=== PATIENT | female | born 1970 | race Caucasian/White ===

== ENCOUNTER 2016-09-08 15:53 | Emergency (ER) | payer MEDICARE, MEDICAID ==
[~2016-09-08] VITALS: Ht 157.5 cm; Wt 81.6 kg
[~2016-09-08 15:53] MED LIST: CEPH500C PO; INSU100V5 SQ; IRON; LEVO500T69 PO; MTF500T PO; MULT1CAP27 PO; OMG1KC PO; OXYC-12 PO; PRM25T PO
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
[2016-09-08 17:05] LABS: BILIRUBIN,URINE NEGATIVE (NEGATIVE); KETONES,URINE 1+ (NEGATIVE); LEUKOCYTE ESTERASE ,URINE 3+ (NEGATIVE); NITRITE,URINE POSITIVE (NEGATIVE); PH,URINE 6 (5-9); PROTEIN,URINE 2+ (NEGATIVE); UROBILINOGEN,URINE NORMAL (NORMAL)
[2016-09-08 17:14] LABS: WBC,URINE >100 /HPF
[2016-09-08] MEDS ORDERED: LIDOCAINE 1% INJ 20 ML (XYLOCAINE) VIAL INJ ONE (17:30)
[2016-09-08] MEDS ORDERED: cefTRIAXone 1 GM (ROCEPHIN) VIAL IM ONE (17:30)
[2016-09-08 18:30] LABS: BASOPHILS % (AUTO) 0 % (0-10); EOSINOPHILS # (AUTO) 0.4 10^3/uL (0.0-0.3); EOSINOPHILS % (AUTO) 4 % (0-10); LYMPHOCYTES # (AUTO) 2.8 X 10^3 (1.0-4.0); LYMPHOCYTES % (AUTO) 23 % (12-44); MEAN CORPUSCULAR HEMOGLOBIN 26 PG (25-34); MEAN CORPUSCULAR HGB CONC 31 G/DL (32-36); MEAN CORPUSCULAR VOLUME 82 FL (80-99); MEAN PLATELET VOLUME 10.8 FL (7.4-10.4); MONOCYTES # (AUTO) 0.6 X 10^3 (0.0-1.0); MONOCYTES % (AUTO) 5 % (0-12); NEUTROPHILS # (AUTO) 8.6 X 10^3 (1.8-7.8); NEUTROPHILS % (AUTO) 69 % (42-75); PLATELET COUNT 65 10^3/uL (130-400); RED BLOOD COUNT 4.47 10^6/uL (4.35-5.85); RED CELL DISTRIBUTION WIDTH 15.6 % (10.0-14.5); WHITE BLOOD COUNT 12.5 10^3/uL (4.3-11.0)
[2016-09-08 18:52] LABS: ALBUMIN 3.8 G/DL (3.2-4.5); BILIRUBIN,TOTAL 0.2 MG/DL (0.1-1.0); CREATININE SERUM 0.99 MG/DL (0.60-1.30); POTASSIUM 4.4 MMOL/L (3.6-5.0); TOTAL PROTEIN 7.9 G/DL (6.4-8.2)
[2016-09-08] MEDS ORDERED: NITR-65 PO (19:06)
--- NOTE | 2016-09-08 19:07 | ED GU-Female ---
General Chief Complaint: -Female Stated Complaint: UTI SYMPTOMS History of Present Illness Time seen by provider: 16:30 Initial Comments Patient presents for recurrent/chronic UTIs. She is paraplegic, She self caths via a abdominal wall stoma into the bladder pouch. She reports diarrhea 1-2 episodes a day, none since yesterday. She is on Levemir 40 units twice a day, blood sugars have been running 180s to 260s. Fasting this morning was 240. Timing/Duration: intermittent Severity/Quality: mild Location: unknown Radiation: none Activities at Onset: none Prior Genitourinary Problems: similar symptoms Associated Symptoms: denies symptoms Allergies and Home Medications Allergies Coded Allergies: latex (Unverified Allergy, Severe, 04/02/14) ANAPHYLAXIS ciprofloxacin (Unverified Allergy, Mild, 04/02/14) RASH hydrocodone (Unverified Allergy, Mild, 04/02/14) RASH paroxetine (Unverified Allergy, Mild, 04/02/14) RASH phenobarbital (Unverified Allergy, Mild, 04/02/14) RASH sulfamethoxazole (Unverified Allergy, Mild, 04/02/14) RASH trimethoprim (Unverified Allergy, Mild, 04/02/14) RASH Home Medications DAILY (Reported) Cephalexin Monohydrate 500 Mg Capsule #28 1 EACH PO QID Prescribed by: KENDALL ROCK on 09/23/14 0035 Insulin Detemir 100 U/Ml Vial 26 U SQ BID (Reported) Levofloxacin 500 Mg Tab #7 1 EACH PO DAILY Prescribed by: DAYTON EISENBERG on 07/29/14 1835 Metformin Hcl 500 Mg Tablet 1 EACH PO BID WITH MEALS (Reported) Multivitamins 1 Each Capsule 1 EACH PO DAILY (Reported) Nitrofurantoin Monohyd/M-Cryst 100 Mg Capsule #14 1 TAB PO BID Prescribed by: LEE BOUCHER on 09/08/16 1906 [place] 3 Polyunsat Fatty Acids 1,000 Mg Cap Unknown Dose PO DAILY (Reported) Oxycodone Hcl/Acetaminophen 1 Each Tablet #10 1 EACH PO Q6H PRN PRN PAIN Prescribed by: KIRBY FERNANDO on 11/09/14 170 Promethazine Hcl 25 Mg Tab #14 25 MG PO Q6H PRN PRN NAUSEA/VOMITING Prescribed by: KIRBY FERNANDO on 11/09/14 1706 Constitutional: no symptoms reported see HPI EENTM: no symptoms reported see HPI Respiratory: no symptoms reported see HPI Cardiovascular: no symptoms reported see HPI Gastrointestinal: no symptoms reported see HPI Genitourinary: see HPI Musculoskeletal: no symptoms reported see HPI Skin: no symptoms reported see HPI Psychiatric/Neurological: No Symptoms Reported See HPI Endocrine: No Symptoms Reported See HPI Hematologic/Lymphatic: No Symptoms Reported See HPI All Other Systemes Reviewed Negative Unless Noted: Yes Past Mminzmo-Rbkula-Rejvug Hx Patient Social History Recent Foreign Travel: No Contact w/Someone Who Travel: No Immunizations Up To Date Tetanus Booster (TDap): Unknown Surgeries HX Surgeries: Yes ( CESEAEAN, BLADDER, THORACIC SPINAL SURGERY, R WRIST, KIDNEY REMOVAL) Surgeries: Section, Orthopedic Respiratory Hx Respiratory Disorders: No Cardiovascular Hx Cardiac Disorders: No Neurological Hx Neurological Disorders: No Genitourinary Hx Genitourinary Disorders: No Genitourinary Disorders: Kidney Stones Gastrointestinal Hx Gastrointestinal Disorders: No Gastrointestinal Disorders: Chronic Diarrhea Musculoskeletal Hx Musculoskeletal Disorders: Yes Musculoskeletal Disorders: Back Injury Endocrine Hx Endocrine Disorders: Yes (TYPE 2 DIABETES) Endocrine Disorders: Diabetes, Insulin dep HEENT HX ENT Disorders: No Cancer Hx Cancer: No Cancer: Uterine Psychosocial Hx Psychiatric Problems: No Reviewed Nursing Assessment Reviewed/Agree w Nursing PMH: Yes Physical Exam Vital Signs Vital Sign - Last 12Hours 09/08/16 16:30 Temp 99.1 Pulse 70 Resp 16 B/P 132/70 Pulse Ox 96 Capillary Refill : General Appearance: WD/WN no apparent distress HEENT: PERRL/EOMI normal ENT inspection TMs normal pharynx normal Neck: non-tender full range of motion supple normal inspection Cardiovascular: normal peripheral pulses regular rate, rhythm no murmur Respiratory: chest non-tender lungs clear no accessory muscle use Gastrointestinal: normal bowel sounds non tender soft other ([place] Catheter) Back: no CVA tenderness Neurologic/Psychiatric: alert normal mood/affect oriented x 3 Skin: normal color warm/dryNo rash Lymphatic: no adenopathy Progress/Results/Core Measures Results/Orders Lab Results My Orders Medications Given in ED Vital Signs/I&O Progress Note : Progress Note 1900 patient had po intake of 10 ounces of water. WBC 12.5; Na 134; Glucose 309 ; UA pH 6.0; 2+ Protein; 4+ Glucose; 1+ Ketones; + Nitrites; 2+ hematuria; > 100 WBC. We were unable to obtain IV access, patient refused additional tries after 2 attempts. She agreed to keep increasing her by mouth fluid intake. 1925 Accucheck 292, offered to give regular insulin subcutaneous. Patient declined, she will continue to push water. She will monitor her blood sugar at home and follow her established protocols on self-management. Departure Impression Impression: Primary Impression: Urinary tract infection Qualified Code: T83.511A - Infection and inflammatory reaction due to indwelling urethral catheter, initial encounter Disposition: HOME, SELF-CARE Condition: Stable Departure-Patient Inst. Decision time for Depature: 18:30 Referrals: EDWARDO MCCRAY MD (PCP/Family) Primary Care Physician Patient Instructions: Urinary Tract Infection, Adult (DC) Add. Discharge Instructions: All discharge instructions reviewed with patient and/or family. Voiced understanding. Scripts Nitrofurantoin Monohyd/M-Cryst (Macrobid 100 mg Capsule)100 Mg Capsule1 Tab PO BID #14 CAP Ref 0 Prov:LEE BOUCHER 09/08/16 Copy Copies To 1: EDWARDO MCCRAY MD, AMY ARNP Sep 08, 2016 19:07 Alanine Aminotransferase (ALT/SGPT) 24 0-55 U/L Albumin 3.8 3.2-4.5 G/DL Alkaline Phosphatase 74 40-136 U/L Anion Gap 16 H 5-14 MMOL/L Aspartate Amino Transf (AST/SGOT) 32 5-34 U/L BUN/Creatinine Ratio 10 Basophils # (Auto) 0.0 0.0-0.1 10^3/uL Basophils (%) (Auto) 0 0-10 % Blood Urea Nitrogen 10 7-18 MG/DL Calcium Level 9.0 8.5-10.1 MG/DL Carbon Dioxide Level 16 L 21-32 MMOL/L Chloride Level 102 98-107 MMOL/L Creatinine 0.99 0.60-1.30 MG/DL Eosinophils # (Auto) 0.4 H 0.0-0.3 10^3/uL Eosinophils (%) (Auto) 4 0-10 % Estimat Glomerular Filtration Rate 60 Glucose Level 309 H 70-105 MG/DL Hematocrit 37 35-52 % Hemoglobin 11.5 11.5-16.0 G/DL Lymphocytes # (Auto) 2.8 1.0-4.0 X 10^3 Lymphocytes (%) (Auto) 23 12-44 % Mean Corpuscular Hemoglobin 26 25-34 PG Mean Corpuscular Hemoglobin Concent 31 L 32-36 G/DL Mean Corpuscular Volume 82 80-99 FL Mean Platelet Volume 10.8 H 7.4-10.4 FL Monocytes # (Auto) 0.6 0.0-1.0 X 10^3 Monocytes (%) (Auto) 5 0-12 % Neutrophils # (Auto) 8.6 H 1.8-7.8 X 10^3 Neutrophils (%) (Auto) 69 42-75 % Platelet Count 65 L 130-400 10^3/uL Potassium Level 4.4 3.6-5.0 MMOL/L Red Blood Count 4.47 4.35-5.85 10^6/uL Red Cell Distribution Width 15.6 H 10.0-14.5 % Sodium Level 134 L 135-145 MMOL/L Total Bilirubin 0.2 0.1-1.0 MG/DL Total Protein 7.9 6.4-8.2 G/DL White Blood Count 12.5 H 4.3-11.0 10^3/uL Glucometer 292 H 70-110 MG/DL My Orders Orders-LEE BOUCHER Cbc With Automated Diff (09/08/16 16:46) Comprehensive Metabolic Panel (09/08/16 16:46) Ceftriaxone Injection (Rocephin Injectio (09/08/16 17:30) Lidocaine 1% Injection (Xylocaine 1% Inj (09/08/16 17:30) Accucheck Stat ONCE (09/08/16 19:11) Medications Given in ED Current Medications Medications Dose Ordered Sig/Gilbert Route Start Time Stop Time Status Last Admin Dose Admin Ceftriaxone Sodium 1,000 mg ONCE ONCE IM 09/08/16 17:30 09/08/16 17:31 DC 09/08/16 19:00 1,000 MG Lidocaine HCl 2.1 ml ONCE ONCE INJ 09/08/16 17:30 09/08/16 17:31 DC 09/08/16 19:00 2.1 ML Vital Signs/I&O Vital Sign - Last 12Hours 09/08/16 09/08/16 09/08/16 16:30 19:00 19:00 Temp 99.1 99.4 99.4 Pulse 70 Resp 16 B/P 132/70 Pulse Ox 96 Progress Note : Progress Note 1900 patient had po intake of 10 ounces of water. WBC 12.5; Na 134; Glucose 309 ; UA pH 6.0; 2+ Protein; 4+ Glucose; 1+ Ketones; + Nitrites; 2+ hematuria; > 100 WBC. We were unable to obtain IV access, patient refused additional tries after 2 attempts. She agreed to keep increasing her by mouth fluid intake. 1924 Accucheck 292, offered to give regular insulin subcutaneous. Patient declined, she will continue to push water. She will monitor her blood sugar at home and follow her established protocols on self-management. Departure Impression Impression: Primary Impression: Urinary tract infection Qualified Code: T83.511A - Infection and inflammatory reaction due to indwelling urethral catheter, initial encounter Disposition: HOME, SELF-CARE Condition: Stable Departure-Patient Inst. Decision time for Depature: 18:30 Referrals: EDWARDO MCCRAY MD (PCP/Family) Primary Care Physician Patient Instructions: Urinary Tract Infection, Adult (DC) Add. Discharge Instructions: All discharge instructions reviewed with patient and/or family. Voiced understanding. Scripts Nitrofurantoin Monohyd/M-Cryst (Macrobid 100 mg Capsule)100 Mg Capsule1 Tab PO BID #14 CAP Ref 0 Prov:LEE BOUCHER 09/08/16 Copy Copies To 1: EDWARDO MCCRAY MD, AMY ARNP Sep 08, 2016 19:07
[2016-09-08 19:20] VITALS: BP 132/70
== END 2016-09-08 19:20 | disposition home or self-care (01) ==
LOC: EDUNIT# 15:53 → ER 15:55
DX: N39.0 Urinary tract infection, site not specified (principal); E11.9 Type 2 diabetes mellitus without complications; G82.20 Paraplegia, unspecified; Z79.84 Long term (current) use of oral hypoglycemic drugs; Z79.899 Other long term (current) drug therapy; Z93.50 Unspecified cystostomy status
CPT/HCPCS: 36415; 80053; 81000; 82962; 85025; 87077; 87088; 87186; 96372; 99285

== ENCOUNTER 2016-09-18 17:44 | Inpatient (IN) | payer MEDICAID, MEDICARE ==
[~2016-09-18] VITALS: Ht 160 cm; Wt 74.0 kg
[~2016-09-18 17:44] MED LIST changes: +NITR-65 PO
[2016-09-18] MEDS ORDERED: ACETAMINOPHEN 325 MG TABLET/CAPLET (TYLENOL) PO PRN (19:00)
--- OUTSIDE RECORDS SUMMARY | 2016-09-18 19:00 | XMS REPORT | Continuity of Care Document ---
Author Author [facility] Organization [facility] Address Unknown Phone Unavailable Care Team Providers Care Motorcycle Repair Shop Supervisor Name Role Phone Dustin An PCP [phone] Source Comments Some departments are not documenting in the electronic medical record. If you do not see the information that you expected, contact Release of Information in the Health Information Management department at [phone] for further assistance in locating additional records.[facility] Active Allergies and Adverse Reactions [...] Overview: Patient with recurrent nephrolithiasis associated with [place] pouch. L PCNL 11/22/15 Second look PCNL [...] mellitus (HCC) History of urinary diversion procedure ([place] Pouch) Overview: Karis pouch -- 1999; Dr. [...]
[2016-09-18 19:15] VITALS: BP 141/70
[2016-09-18 20:00] VITALS: BP 141/70
[2016-09-18] MEDS ORDERED: CATHETER FLUSH 10 ML SYR IV PRN (20:00)
[2016-09-18] MEDS: CEFEPIME 2 GM/NS 50 ML IVPB IV SCH ×2 (20:51)
[2016-09-18] MEDS ORDERED: BISACODYL 10 MG SUPP (DULCOLAX) ONE (21:43)
[2016-09-18] MEDS: CATHETER FLUSH 10 ML SYR IV SCH (22:00)
[2016-09-18] MEDS: NS IV 1000 ML 1,000 ML IV SCH (22:01)
[2016-09-18] MEDS: BISACODYL 10 MG SUPP (DULCOLAX) PR SCH (22:02)
[2016-09-19 00:40] VITALS: BP 121/80
[2016-09-19 04:00] VITALS: BP 111/72
[2016-09-19] MEDS: CATHETER FLUSH 10 ML SYR IV SCH ×3 (06:00→20:52)
[2016-09-19 06:37] LABS: ANION GAP 15 MMOL/L (5-14); BLOOD UREA NITROGEN 13 MG/DL (7-18); BUN/CREATININE RATIO 14; CALCIUM 8.4 MG/DL (8.5-10.1); CARBON DIOXIDE 12 MMOL/L (21-32); CHLORIDE 110 MMOL/L (98-107); CREATININE SERUM 0.94 MG/DL (0.60-1.30); GFR ESTIMATED > 60; GLUCOSE 295 MG/DL (70-105); POTASSIUM 3.7 MMOL/L (3.6-5.0); SODIUM 137 MMOL/L (135-145)
[2016-09-19 08:00] VITALS: BP 128/81
[2016-09-19] MEDS ORDERED: METF500T4 PO (08:40)
[2016-09-19] MEDS ORDERED: ACET-2267 PO (08:41)
[2016-09-19] MEDS: NS IV 1000 ML 1,000 ML IV SCH ×3 (09:05→20:50)
[2016-09-19] MEDS: CEFEPIME 2 GM/NS 50 ML IVPB IV SCH ×4 (09:06→20:51)
[2016-09-19] MEDS ORDERED: ACETAMINOPHEN 500 MG TAB (TYLENOL) PO PRN (09:30)
[2016-09-19] MEDS: inSUlin DETERMIR 1 UNIT/0.01 ML (LEVEMIR) CHARGE PER UNIT SQ SCH ×2 (10:06→20:52)
[2016-09-19] MEDS: metFORMIN 500 MG (GLUCOPHAGE) TAB PO SCH ×2 (10:06→17:35)
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
[2016-09-19 12:00] VITALS: BP 141/82
[2016-09-19] MEDS: MULTIVIT W/MINERALS TAB (THERAGRAN M) PO SCH (12:46)
[2016-09-19] MEDS: NYSTATIN CREAM (MYCOSTATIN) 30 GM TUBE TP SCH ×3 (12:46→20:52)
[2016-09-19 16:00] VITALS: BP 138/84
[2016-09-19 20:00] VITALS: BP 130/67
[2016-09-19] MEDS: BISACODYL 10 MG SUPP (DULCOLAX) PR SCH (20:52)
[2016-09-19] MEDS: OMEGA 3 (FISH OIL) 1000 MG CAP PO SCH (20:52)
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
[2016-09-20] VITALS: BP 147/70
[2016-09-20] MEDS: CATHETER FLUSH 10 ML SYR IV SCH ×3 (06:00→20:28)
[2016-09-20] MEDS: NS IV 1000 ML 1,000 ML IV SCH ×2 (06:16→18:35)
[2016-09-20] MEDS: MULTIVIT W/MINERALS TAB (THERAGRAN M) PO SCH (06:16)
[2016-09-20] MEDS: metFORMIN 500 MG (GLUCOPHAGE) TAB PO SCH ×2 (06:16→16:34)
[2016-09-20 08:00] VITALS: BP 126/80
[2016-09-20] MEDS: CEFEPIME 2 GM/NS 50 ML IVPB IV SCH ×4 (08:55→20:26)
[2016-09-20] MEDS: inSUlin DETERMIR 1 UNIT/0.01 ML (LEVEMIR) CHARGE PER UNIT SQ SCH ×2 (08:56→20:27)
[2016-09-20] MEDS: NYSTATIN CREAM (MYCOSTATIN) 30 GM TUBE TP SCH ×3 (08:59→20:28)
[2016-09-20] MEDS: MICONAZOLE 2% POWDER (DESENEX AF) 90 GM TOP SCH ×2 (11:05→20:27)
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
[2016-09-20] MEDS ORDERED: VANCOMYCIN ORAL 250 MG/5 ML 60 ML PO SCH ×2 (12:00)
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
[2016-09-20 16:55] VITALS: BP 147/71
[2016-09-20] MEDS: OMEGA 3 (FISH OIL) 1000 MG CAP PO SCH (20:26)
[2016-09-20] MEDS: BISACODYL 10 MG SUPP (DULCOLAX) PR SCH (20:26)
[2016-09-21] VITALS: BP 142/70
[2016-09-21] MEDS: NS IV 1000 ML 1,000 ML IV SCH (04:40)
[2016-09-21 05:08] LABS: BASOPHILS # (AUTO) 0.1 10^3/uL (0.0-0.1); BASOPHILS % (AUTO) 1 % (0-10); EOSINOPHILS # (AUTO) 0.2 10^3/uL (0.0-0.3); EOSINOPHILS % (AUTO) 2 % (0-10); LYMPHOCYTES # (AUTO) 2.7 X 10^3 (1.0-4.0); LYMPHOCYTES % (AUTO) 29 % (12-44); MEAN CORPUSCULAR HEMOGLOBIN 26 PG (25-34); MEAN CORPUSCULAR HGB CONC 31 G/DL (32-36); MEAN CORPUSCULAR VOLUME 82 FL (80-99); MONOCYTES # (AUTO) 0.6 X 10^3 (0.0-1.0); MONOCYTES % (AUTO) 6 % (0-12); NEUTROPHILS # (AUTO) 5.7 X 10^3 (1.8-7.8); NEUTROPHILS % (AUTO) 62 % (42-75); PLATELET COUNT 308 10^3/uL (130-400); RED BLOOD COUNT 3.61 10^6/uL (4.35-5.85); RED CELL DISTRIBUTION WIDTH 16.4 % (10.0-14.5); WHITE BLOOD COUNT 9.3 10^3/uL (4.3-11.0)
[2016-09-21 05:27] LABS: ALANINE AMINOTRANSFERASE 27 U/L (0-55); ALBUMIN 2.8 G/DL (3.2-4.5); ANION GAP 10 MMOL/L (5-14); ASPARTATE AMINO TRANSFERASE 42 U/L (5-34); BILIRUBIN,TOTAL 0.1 MG/DL (0.1-1.0); BLOOD UREA NITROGEN 14 MG/DL (7-18); BUN/CREATININE RATIO 17; CARBON DIOXIDE 14 MMOL/L (21-32); CHLORIDE 114 MMOL/L (98-107); CREATININE SERUM 0.82 MG/DL (0.60-1.30); GFR ESTIMATED > 60; GLUCOSE 235 MG/DL (70-105); POTASSIUM 3.7 MMOL/L (3.6-5.0); SODIUM 138 MMOL/L (135-145); TOTAL PROTEIN 6.3 G/DL (6.4-8.2)
[2016-09-21] MEDS: CATHETER FLUSH 10 ML SYR IV SCH (06:00)
[2016-09-21] MEDS: MULTIVIT W/MINERALS TAB (THERAGRAN M) PO SCH (06:20)
[2016-09-21] MEDS: metFORMIN 500 MG (GLUCOPHAGE) TAB PO SCH (06:20)
[2016-09-21 08:00] VITALS: BP 158/74
[2016-09-21] MEDS: inSUlin DETERMIR 1 UNIT/0.01 ML (LEVEMIR) CHARGE PER UNIT SQ SCH (08:35)
[2016-09-21] MEDS: CEFEPIME 2 GM/NS 50 ML IVPB IV SCH ×2 (08:35)
[2016-09-21] MEDS: MICONAZOLE 2% POWDER (DESENEX AF) 90 GM TOP SCH (08:36)
[2016-09-21] MEDS: NYSTATIN CREAM (MYCOSTATIN) 30 GM TUBE TP SCH (08:36)
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
== END 2016-09-21 11:20 | disposition swing bed (61) | DRG 699 ==
LOC: 4TH 18:57
PROVIDERS: ADMIT Internal Medicine; ATTEND Internal Medicine
DX: N99.531 Infection of continent stoma of urinary tract (principal); N39.0 Urinary tract infection, site not specified; R19.7 Diarrhea, unspecified; G82.20 Paraplegia, unspecified; L89.152 Pressure ulcer of sacral region, stage 2; L30.4 Erythema intertrigo; K59.9 Functional intestinal disorder, unspecified; E11.9 Type 2 diabetes mellitus without complications; E66.9 Obesity, unspecified; Z79.4 Long term (current) use of insulin; Z85.42 Personal history of malignant neoplasm of other parts of uterus; Z90.5 Acquired absence of kidney; Z87.828 Personal history of other (healed) physical injury and trauma; Z68.28 Body mass index [BMI] 28.0-28.9, adult
CPT/HCPCS: 36415; 80048; 80053; 82962; 85025; 87324; 87449

== ENCOUNTER 2016-09-21 11:23 | Inpatient (IN) | payer MEDICARE ==
[~2016-09-21] VITALS: Ht 160 cm; Wt 74.0 kg
[~2016-09-21 11:23] MED LIST changes: +ACET-2267 PO; +METF500T4 PO
[2016-09-21] MEDS ORDERED: NS IV 1000 ML 1,000 ML IV SCH (11:30)
--- OUTSIDE RECORDS SUMMARY | 2016-09-21 11:43 | XMS REPORT | Continuity of Care Document ---
Author Author [facility] Organization [facility] Address Unknown Phone Unavailable Care Team Providers Care Hotel Supplies Salesperson Name Role Phone Dustin An PCP [phone] Source Comments Some departments are not documenting in the electronic medical record. If you do not see the information that you expected, contact Release of Information in the Health Information Management department at [phone] for further assistance in locating additional records.[facility] Active Allergies and Adverse Reactions Allergen Noted [...] Overview: Patient with recurrent nephrolithiasis associated with [place] pouch. L PCNL 11/22/15 Second look PCNL [...] mellitus (HCC) History of urinary diversion procedure ([place] Pouch) Overview: Karis pouch -- 1999; Dr. [...]
[2016-09-21] MEDS: NYSTATIN CREAM (MYCOSTATIN) 30 GM TUBE TP SCH ×2 (12:33→20:40)
[2016-09-21] MEDS: CATHETER FLUSH 10 ML SYR IV SCH ×2 (15:18→20:41)
[2016-09-21] MEDS: metFORMIN 500 MG (GLUCOPHAGE) TAB PO SCH (17:15)
[2016-09-21 18:55] VITALS: BP 143/72
[2016-09-21] MEDS: OMEGA 3 (FISH OIL) 1000 MG CAP PO SCH (20:39)
[2016-09-21] MEDS: MICONAZOLE 2% POWDER (DESENEX AF) 90 GM TOP SCH (20:40)
[2016-09-21] MEDS: BISACODYL 10 MG SUPP (DULCOLAX) PR SCH (20:40)
[2016-09-21] MEDS: CEFEPIME INJECTION 2,000 MG in NS (IVPB) 50 ML IV SCH (20:40)
[2016-09-21] MEDS ORDERED: CEFEPIME INJECTION 2,000 MG in NS (IVPB) 50 ML IV SCH (21:00)
[2016-09-21] MEDS: inSUlin DETERMIR 1 UNIT/0.01 ML (LEVEMIR) CHARGE PER UNIT SQ SCH (22:06)
[2016-09-22 06:00] VITALS: BP 147/67
[2016-09-22] MEDS: CATHETER FLUSH 10 ML SYR IV SCH ×3 (06:17→20:15)
[2016-09-22] MEDS: metFORMIN 500 MG (GLUCOPHAGE) TAB PO SCH ×2 (06:17→16:27)
[2016-09-22] MEDS: MULTIVIT W/MINERALS TAB (THERAGRAN M) PO SCH (06:17)
[2016-09-22] MEDS: NYSTATIN CREAM (MYCOSTATIN) 30 GM TUBE TP SCH ×3 (08:32→20:15)
[2016-09-22] MEDS: MICONAZOLE 2% POWDER (DESENEX AF) 90 GM TOP SCH ×2 (08:32→20:15)
[2016-09-22] MEDS: inSUlin DETERMIR 1 UNIT/0.01 ML (LEVEMIR) CHARGE PER UNIT SQ SCH ×2 (09:41→21:48)
[2016-09-22] MEDS: CEFEPIME INJECTION 2,000 MG in NS (IVPB) 50 ML IV SCH ×3 (09:41→20:15)
[2016-09-22] MEDS ORDERED: LIDOCAINE 1% INJ 20 ML (XYLOCAINE) VIAL ONE (10:28)
[2016-09-22] MEDS: LIDOCAINE 1% INJ 20 ML (XYLOCAINE) VIAL INJ ONE ×2 (10:44→11:53)
[2016-09-22] MEDS ORDERED: morphine INJ 10 MG/ML 1ML (SYR OR VIAL) IM NR (11:19)
[2016-09-22] MEDS ORDERED: morphine INJ 10 MG/ML 1ML (SYR OR VIAL) ONE (11:21)
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
--- NOTE | 2016-09-22 12:51 | Progress Note-Hospitalist ---
Progress Note HPI/CC on Admission Infected Pressure Ulcer Progress Notes/Assess & Plan Date Seen 09/22/16 Admission Dx/Process non healing wounds with MDRO- needs IV abx Diagonsis/Assessment & Plan Pressure ulcer- coccyx - colonization with MDRO - Needs IV abx at this time - Anesthesia unable to obtain IV access so surgery consulted for central line - PT/OT MD ASIM Crook KATELYN M MD Sep 22, 2016 12:51
--- NOTE | 2016-09-22 14:10 | Diagnostic Imaging Report ---
INDICATION: Central line placement EXAMINATION: Chest 09/22/2016 COMPARISON: 09/22/2014 FINDINGS: There is a left-sided central line. The tip is seen within the distal SVC. Postoperative change in the support on in the cervical thoracic spine stable. Lungs are stable. No infiltrates or effusions are seen. There is no pneumothorax. Heart and pulmonary vasculature appear unremarkable. IMPRESSION: 1. Left central line as described with remaining chest stable. Dictated by: Dictated on workstation # [id number]
[2016-09-22] MEDS: ACETAMINOPHEN 500 MG TAB (TYLENOL) PO PRN (16:28)
[2016-09-22 18:00] VITALS: BP 118/56
[2016-09-22] MEDS: OMEGA 3 (FISH OIL) 1000 MG CAP PO SCH (20:14)
[2016-09-22] MEDS: BISACODYL 10 MG SUPP (DULCOLAX) PR SCH (20:31)
[2016-09-23] MEDS: ACETAMINOPHEN 500 MG TAB (TYLENOL) PO PRN ×2 (02:17→10:16)
[2016-09-23 06:00] VITALS: BP 111/59
[2016-09-23] MEDS: MULTIVIT W/MINERALS TAB (THERAGRAN M) PO SCH (06:20)
[2016-09-23] MEDS: CATHETER FLUSH 10 ML SYR IV SCH ×3 (06:20→20:48)
[2016-09-23] MEDS: metFORMIN 500 MG (GLUCOPHAGE) TAB PO SCH ×2 (06:20→17:53)
[2016-09-23] MEDS: MICONAZOLE 2% POWDER (DESENEX AF) 90 GM TOP SCH ×2 (09:25→20:48)
[2016-09-23] MEDS: NYSTATIN CREAM (MYCOSTATIN) 30 GM TUBE TP SCH ×3 (09:25→20:47)
[2016-09-23] MEDS: CEFEPIME INJECTION 2,000 MG in NS (IVPB) 50 ML IV SCH (09:26)
[2016-09-23] MEDS: inSUlin DETERMIR 1 UNIT/0.01 ML (LEVEMIR) CHARGE PER UNIT SQ SCH ×2 (09:26→20:46)
--- NOTE | 2016-09-23 11:48 | Progress Note-Hospitalist ---
Progress Note HPI/CC on Admission Infected Pressure Ulcer, MDRO UTI, doing well. No complaints today. No pain at ulcer. Just has some pain around central line site. Progress Notes/Assess & Plan Date Seen 09/23/16 Admission Dx/Process MDRO UTI- needs IV abx Diagonsis/Assessment & Plan UTI with MDRO - Continue IV abx - Add probiotic Pressure ulcer- coccyx - PT/OT Dispo: Continue admission for IV abx. MD ASIM Crook KATELYN M MD Sep 23, 2016 11:48
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
[2016-09-23] MEDS: LACTOBACILLUS Acidoph/Bulgar (LACTINEX/FLORANEX) TAB PO SCH (17:53)
[2016-09-23 18:00] VITALS: BP 127/89
[2016-09-23] MEDS: OMEGA 3 (FISH OIL) 1000 MG CAP PO SCH (20:47)
[2016-09-23] MEDS: BISACODYL 10 MG SUPP (DULCOLAX) PR SCH (20:47)
[2016-09-24] MEDS: LACTOBACILLUS Acidoph/Bulgar (LACTINEX/FLORANEX) TAB PO SCH ×2 (06:40→11:50)
[2016-09-24] MEDS: metFORMIN 500 MG (GLUCOPHAGE) TAB PO SCH (06:40)
[2016-09-24] MEDS: MULTIVIT W/MINERALS TAB (THERAGRAN M) PO SCH (06:40)
[2016-09-24] MEDS: CATHETER FLUSH 10 ML SYR IV SCH ×2 (06:43→14:31)
[2016-09-24] MEDS: NYSTATIN CREAM (MYCOSTATIN) 30 GM TUBE TP SCH ×2 (09:14→14:30)
[2016-09-24] MEDS: MICONAZOLE 2% POWDER (DESENEX AF) 90 GM TOP SCH (09:14)
[2016-09-24] MEDS: inSUlin DETERMIR 1 UNIT/0.01 ML (LEVEMIR) CHARGE PER UNIT SQ SCH (09:20)
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
[2016-09-24 15:15] VITALS: BP 127/89
--- NOTE | 2016-09-30 20:48 | Discharge Summary ---
Diagnosis/Chief Complaint Date of Admission Sep 21, 2016 at 11:23 Date of Discharge Sep 24, 2016 at 15:15 Admission Diagnosis Admission Diagnosis MDRO UTI Chronic Pressure Ulcer Coccyx Left heal pressure ulcer Debility Discharge Diagnosis See Above Chief Complaint/HPI Chief Complaint/HPI 46 yo Paraplegic with h/o recurrent UTIs that was admitted to swing bed for continue IV antibiotics, wound care and PT/OT. Discharge Summary-Simple/Stand Consultations Wound Care: Dr Duckworth Surgery: Dr Tolbert Discharge Physical Examination Allergies: Coded Allergies: latex (Unverified Allergy, Severe, 04/02/14) ANAPHYLAXIS ciprofloxacin (Unverified Allergy, Mild, 04/02/14) RASH hydrocodone (Unverified Allergy, Mild, 04/02/14) RASH paroxetine (Unverified Allergy, Mild, 04/02/14) RASH phenobarbital (Unverified Allergy, Mild, 04/02/14) RASH sulfamethoxazole (Unverified Allergy, Mild, 04/02/14) RASH trimethoprim (Unverified Allergy, Mild, 04/02/14) RASH Vitals & I&Os Vital Sign - Last 12Hours Date Time Temp Pulse Resp B/P Pulse Ox O2 Delivery O2 Flow Rate FiO2 09/24/16 15:15 107 20 127/89 97 09/24/16 09:00 Room Air General Appearance: Alert, Oriented X3, Cooperative, No Acute Distress HEENT: Atraumatic, PERRLA, EOMI, Mucous Memb Moist/[place] Respiratory: Clear to Auscultation, Normal Air Movement Cardiovascular: Regular Rate, Normal S1, Normal S2, No Murmurs Abdominal: Normal Bowel Sounds, Soft, No Tenderness, No Masses Extremities: No Tenderness/Swelling, Other (trace edema present bilaterally) Skin: Other (stage 2 pressure ulcer present on left heal, stage 4 ulcer present on coccyx (chronic)) Neuro: Normal Speech, Cranial Nerves 3-12 NL Psych/Mental Status: Mental Status NL, Mood NL Hospital Course See final discharge diagnosis. Pending Labs None Discussion & Recommendations 46 yo paraplegic that was admitted to swing bed for continue IV antibiotics, wound care and PT/OT. Patient completed her course of antibiotics and was discharged home with Home health for wound care and therapy Discharge Condition at discharge Stable Instructions to patient/family Please see electonic discharge instructions given to patient. Discharge Medications Reviewed and agree with Discharge Medication list on patient's Discharge Instruction sheet Copy Copies To 1: EDWARDO MCCRAY MD, HOLLY R MD Sep 30, 2016 20:48
--- NOTE | 2016-10-16 11:31 | Anesthesia-Procedure Note ---
Procedure Start/Stop Time Date of Procedure: Sep 22, 2016 Start Time: 10:30 Stop Time: 10:38 Procedures/Interventions IV : Progress Unsuccessful IV attempts x 4 KAVIN VILLA CRNA Oct 16, 2016 11:31
== END 2016-09-24 15:15 | disposition home health service (06) | DRG 699 ==
LOC: 4TH 11:23
PROVIDERS: ADMIT Internal Medicine; ATTEND Internal Medicine
PROC: 02HV33Z Insertion of Infusion Device into Superior Vena Cava, Percutaneous Approach (ICD-10-PCS; principal; 2016-09-22)
DX: N99.531 Infection of continent stoma of urinary tract (principal); N39.0 Urinary tract infection, site not specified; G82.20 Paraplegia, unspecified; L89.152 Pressure ulcer of sacral region, stage 2; E11.9 Type 2 diabetes mellitus without complications; Z79.4 Long term (current) use of insulin; Z79.84 Long term (current) use of oral hypoglycemic drugs; Z85.42 Personal history of malignant neoplasm of other parts of uterus; Z90.5 Acquired absence of kidney; Z87.828 Personal history of other (healed) physical injury and trauma
CPT/HCPCS: 71010; 82962

== ENCOUNTER → 2016-10-22 | Outpatient (CLI) | payer MEDICARE ==
[2016-10-22 10:46] LABS: BILIRUBIN,URINE NEGATIVE (NEGATIVE); KETONES,URINE NEGATIVE (NEGATIVE); LEUKOCYTE ESTERASE ,URINE 3+ (NEGATIVE); NITRITE,URINE POSITIVE (NEGATIVE); PH,URINE 6 (5-9); PROTEIN,URINE 2+ (NEGATIVE); UROBILINOGEN,URINE NORMAL (NORMAL)
[2016-10-22 11:01] LABS: WBC,URINE TNTC /HPF
== END ==
LOC: HH 10:41
PROVIDERS: ATTEND Internal Medicine
DX: N39.0 Urinary tract infection, site not specified (principal)
CPT/HCPCS: 81000; 87088

== ENCOUNTER → 2016-11-02 | Outpatient (CLI) | payer MEDICARE, MEDICAID ==
[~2016-11-02] VITALS: Ht 160 cm; Wt 74.0 kg
[~2016-11-02] MED LIST changes: +GENTAMICIN IV NR; +NS IV NR
--- NOTE | 2016-11-02 15:49 | Diagnostic Imaging Report ---
INDICATION: PICC PLACEMENT COMPARISON: 09/22/2016 FINDINGS: Single frontal radiographic view of the chest was obtained and demonstrates normal heart size and pulmonary vascularity. The lungs are clear. There are no signs of infiltrate, pleural effusions or pneumothoraces. The visualized osseous structures show no acute abnormalities. Right upper extremity PICC line is identified. Central portion of the catheter is obscured by the patient's thoracic vertebral hardware, but the tip does appear to terminate in the low SVC. IMPRESSION: 1. Right upper extremity PICC line is partially obscured, but does appear to terminate with tip in the low SVC. 2. No acute process. No signs of infiltrates, effusions or pneumothoraces. Dictated by: Dictated on workstation # [id number]
[2016-11-02 15:50] LABS: ANION GAP 12 MMOL/L (5-14); BLOOD UREA NITROGEN 17 MG/DL (7-18); BUN/CREATININE RATIO 18; CARBON DIOXIDE 18 MMOL/L (21-32); CHLORIDE 108 MMOL/L (98-107); CREATININE SERUM 0.93 MG/DL (0.60-1.30); GFR ESTIMATED > 60; GLUCOSE 278 MG/DL (70-105); SODIUM 138 MMOL/L (135-145)
[2016-11-02 16:28] VITALS: BP 145/90
[2016-11-02 16:38] VITALS: BP 145/90
== END ==
LOC: SDC 14:39
PROVIDERS: ATTEND Internal Medicine
DX: N39.0 Urinary tract infection, site not specified (principal)
CPT/HCPCS: 36415; 36569; 71010; 76937; 80048; 96365

== ENCOUNTER → 2016-11-04 | Outpatient (CLI) | payer MEDICARE, MEDICAID ==
[~2016-11-04] MED LIST changes: -GENTAMICIN IV NR; -NS IV NR
== END ==
LOC: HH 15:34
PROVIDERS: ATTEND Internal Medicine
DX: N39.0 Urinary tract infection, site not specified (principal)
CPT/HCPCS: 80202

== ENCOUNTER 2016-12-31 12:05 | Outpatient (CLI) | payer MEDICARE, MEDICAID ==
[~2016-12-31] VITALS: Ht 160 cm
[2016-12-31 12:36] VITALS: BP 128/85
[2016-12-31 12:55] LABS: BASOPHILS # (AUTO) 0.1 10^3/uL (0.0-0.1); BASOPHILS % (AUTO) 1 % (0-10); EOSINOPHILS # (AUTO) 0.2 10^3/uL (0.0-0.3); EOSINOPHILS % (AUTO) 2 % (0-10); LYMPHOCYTES # (AUTO) 2.7 X 10^3 (1.0-4.0); LYMPHOCYTES % (AUTO) 27 % (12-44); MEAN CORPUSCULAR HEMOGLOBIN 25 PG (25-34); MEAN CORPUSCULAR HGB CONC 31 G/DL (32-36); MEAN CORPUSCULAR VOLUME 81 FL (80-99); MEAN PLATELET VOLUME 10.6 FL (7.4-10.4); MONOCYTES # (AUTO) 0.4 X 10^3 (0.0-1.0); MONOCYTES % (AUTO) 4 % (0-12); NEUTROPHILS # (AUTO) 6.7 X 10^3 (1.8-7.8); NEUTROPHILS % (AUTO) 67 % (42-75); PLATELET COUNT 335 10^3/uL (130-400); RED CELL DISTRIBUTION WIDTH 17.2 % (10.0-14.5)
[2016-12-31 13:10] LABS: ANION GAP 10 MMOL/L (5-14); BLOOD UREA NITROGEN 10 MG/DL (7-18); BUN/CREATININE RATIO 12; CARBON DIOXIDE 18 MMOL/L (21-32); CHLORIDE 111 MMOL/L (98-107); CREATININE SERUM 0.83 MG/DL (0.60-1.30); GFR ESTIMATED > 60; GLUCOSE 137 MG/DL (70-105); POTASSIUM 3.9 MMOL/L (3.6-5.0); SODIUM 139 MMOL/L (135-145)
== END 2016-12-31 12:45 | disposition home or self-care (01) ==
LOC: PREOP 12:05
PROVIDERS: ATTEND Surgery
DX: Z01.812 Encounter for preprocedural laboratory examination (principal); Z11.2 Encounter for screening for other bacterial diseases; L89.159 Pressure ulcer of sacral region, unspecified stage; G82.20 Paraplegia, unspecified
CPT/HCPCS: 36415; 80048; 85025; 86850; 86900; 86901; 87081

== ENCOUNTER 2017-01-04 07:18 | Inpatient (IN) | payer MEDICARE, MEDICAID ==
[~2017-01-04] VITALS: Ht 160 cm; Wt 72.6 kg
[2017-01-04] MEDS ORDERED: LIDOCAINE/EPI 1%-1:100,000 (XYLOCAINE) 20ML ONE (07:59)
[2017-01-04] MEDS ORDERED: HEParin (CENTRAL IV FLUSH) 500 UNIT/5 ML SYR ONE (08:00)
[2017-01-04] MEDS ORDERED: FAMOTIDINE 20MG/2ML IV (PEPCID) IV ONE (08:00)
[2017-01-04] MEDS: LACTATED RINGERS 1,000 ML IV PRN ×3 (08:02→13:40)
[2017-01-04] MEDS ORDERED: proPOfol 200 MG/20 ML (DIPRIVAN) VIAL IV ONE (08:04)
[2017-01-04] MEDS ORDERED: SEVOFLURANE (ULTANE) 15 ML INHAL SOLN ONE ×6 (08:04→13:02)
[2017-01-04] MEDS ORDERED: MIDAZOLAM 2 MG/2 ML (VERSED) VIAL ONE (08:04)
[2017-01-04] MEDS ORDERED: ONDANSETRON 4 MG/2 ML (SDV) Z0FRAN ONE (08:04)
[2017-01-04] MEDS ORDERED: fentaNYL INJECTION 250 MCG/5 ML AMP ONE (08:04)
[2017-01-04] MEDS ORDERED: LIDOCAINE PF 2% 5 ML (XYLOCAINE) VIAL ONE (08:04)
[2017-01-04] MEDS ORDERED: ROCURONIUM 50 MG/5 ML (ZEMURON) VIAL IV ONE (08:04)
[2017-01-04] MEDS ORDERED: ceFAZolin 2 GM/50 ML NS 0 ML ONE (09:00)
[2017-01-04] MEDS ORDERED: PIPERACILLIN/TAZOBACTAM 4.5 GM/NS 100 ML IV ONE ×2 (09:30)
[2017-01-04] MEDS ORDERED: BUP/EPI 0.5% 1:200,000 (SENSORCAINE) 30 ML VIAL ONE (09:56)
[2017-01-04] MEDS ORDERED: PHENYLEPHRINE 100 MCG/ML 10 ML (ANESTHESIA) SYR ONE (10:27)
[2017-01-04] MEDS ORDERED: GLYCOPYRROLATE 0.2 MG/ML (ROBINUL) 2 ML VIAL ONE (13:02)
[2017-01-04] MEDS ORDERED: NEOSTIGMINE (BLOXIVERZ ) 1 MG/1ML 10 ML VIAL ONE (13:02)
--- NOTE | 2017-01-04 13:10 | Progress Note-Post Operative ---
Post-Operative Progess Note Surgeon (s)/French Professor (s) Surgeon KIRBY CEVALLOS DO French Professor: Bill Pre-Operative Diagnosis Paraplegia, Sacral Ulcers Post-Operative Diagnosis same Procedure & Operative Findings Date of Procedure 01/04/17 Procedure Performed/Findings Laparoscopic Aline's Procedure Anesthesia Type GET Estimated Blood Loss Estimated blood loss (mL): less than 10 ml Specimens/Packing Specimens Removed portion of colon KIRBY CEVALLOS DO Jan 04, 2017 13:10
[2017-01-04] MEDS ORDERED: ONDANSETRON 4 MG/2 ML (SDV) Z0FRAN IVP PRN (13:15)
[2017-01-04 14:14] VITALS: BP 132/82
[2017-01-04] MEDS: LACTATED RINGERS 1,000 ML IV SCH ×2 (16:19→22:36)
[2017-01-04] MEDS: ENOXAPARIN 40 MG/0.4 ML (LOVENOX) SYR SC SCH (16:19)
[2017-01-04 16:55] VITALS: BP 129/80
[2017-01-04] MEDS ORDERED: RT-ALBUTEROL SULF 2.5 MG/3 ML PRE-MIX VIAL IH PRN (18:00)
[2017-01-04 19:15] VITALS: BP 126/75
[2017-01-04] MEDS: inSUlin (REGULAR) HUMAN 1 UNIT/0.01 ML (CHARGE PER UNIT) SC SCH (21:00)
[2017-01-04] MEDS ORDERED: ACETAMINOPHEN 500 MG TAB (TYLENOL) ONE (21:32)
[2017-01-04] MEDS: inSUlin DETERMIR 1 UNIT/0.01 ML (LEVEMIR) CHARGE PER UNIT SQ SCH (22:42)
[2017-01-04] MEDS: ACETAMINOPHEN 500 MG TAB (TYLENOL) PO PRN (22:42)
[2017-01-05] VITALS: BP 120/81
[2017-01-05] MEDS: ACETAMINOPHEN 500 MG TAB (TYLENOL) PO PRN ×3 (03:53→17:15)
[2017-01-05 04:00] VITALS: BP 111/73
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
[2017-01-05 05:18] LABS: BASOPHILS % (AUTO) 0 % (0-10); EOSINOPHILS # (AUTO) 0.1 10^3/uL (0.0-0.3); EOSINOPHILS % (AUTO) 1 % (0-10); LYMPHOCYTES # (AUTO) 2.1 X 10^3 (1.0-4.0); LYMPHOCYTES % (AUTO) 18 % (12-44); MEAN CORPUSCULAR HEMOGLOBIN 25 PG (25-34); MEAN CORPUSCULAR HGB CONC 30 G/DL (32-36); MEAN CORPUSCULAR VOLUME 82 FL (80-99); MEAN PLATELET VOLUME 11.9 FL (7.4-10.4); MONOCYTES # (AUTO) 0.8 X 10^3 (0.0-1.0); MONOCYTES % (AUTO) 7 % (0-12); NEUTROPHILS # (AUTO) 8.8 X 10^3 (1.8-7.8); NEUTROPHILS % (AUTO) 74 % (42-75); PLATELET COUNT 244 10^3/uL (130-400); RED BLOOD COUNT 3.42 10^6/uL (4.35-5.85); RED CELL DISTRIBUTION WIDTH 17.4 % (10.0-14.5); WHITE BLOOD COUNT 11.9 10^3/uL (4.3-11.0)
[2017-01-05] MEDS: LACTATED RINGERS 1,000 ML IV SCH ×3 (05:22→21:55)
[2017-01-05 05:32] LABS: ALANINE AMINOTRANSFERASE 18 U/L (0-55); ALBUMIN 2.7 G/DL (3.2-4.5); ANION GAP 10 MMOL/L (5-14); ASPARTATE AMINO TRANSFERASE 18 U/L (5-34); BILIRUBIN,TOTAL 0.3 MG/DL (0.1-1.0); BLOOD UREA NITROGEN 5 MG/DL (7-18); BUN/CREATININE RATIO 7; CALCIUM 7.9 MG/DL (8.5-10.1); CARBON DIOXIDE 17 MMOL/L (21-32); CHLORIDE 112 MMOL/L (98-107); CREATININE SERUM 0.75 MG/DL (0.60-1.30); GFR ESTIMATED > 60; GLUCOSE 100 MG/DL (70-105); POTASSIUM 3.7 MMOL/L (3.6-5.0); SODIUM 139 MMOL/L (135-145); TOTAL PROTEIN 5.6 G/DL (6.4-8.2)
[2017-01-05] MEDS: inSUlin (REGULAR) HUMAN 1 UNIT/0.01 ML (CHARGE PER UNIT) SC SCH ×4 (05:37→21:24)
[2017-01-05 08:00] VITALS: BP 122/75
--- NOTE | 2017-01-05 10:57 | Progress Note ---
Subjective Time Seen by Provider: 10:49 Subjective/Events-last exam Pt seen and examined, no complaints. Had a DEAL last night but better now. She is tolerating clears, no pain. Review of Systems General: No Chills, No Night Sweats Pulmonary: No Cough Gastrointestinal: No: Abdominal Pain, Nausea, Vomiting Objective Exam Vital Signs Date Time Temp Pulse Resp B/P (MAP) Pulse Ox O2 Delivery O2 Flow Rate FiO2 01/05/17 08:00 98.8 82 16 122/75 97 Room Air 01/05/17 06:36 93 Room Air 01/05/17 04:00 99.9 96 18 111/73 94 Room Air 01/05/17 00:00 99.8 100 20 120/81 97 Room Air 01/04/17 19:17 97 Room Air 01/04/17 19:15 99.8 88 18 126/75 97 Room Air 01/04/17 16:55 98.0 85 18 129/80 98 Room Air 01/04/17 14:14 97.8 82 20 132/82 100 Room Air 01/04/17 14:14 Room Air I & O 01/05/17 07:00 Intake Total 1740 ml Output Total 1050 ml Balance 690 ml Capillary Refill : General Appearance: No Apparent Distress, WD/WN Respiratory: Chest Non Tender, Lungs Clear, Normal Breath Sounds Cardiovascular: Regular Rate, Rhythm, No Murmur Gastrointestinal: other (+ostomy function, however ostomy is dark purple, one area of pink. Incisions C/D/I) Results Lab Laboratory Tests 01/04/17 13:22: Glucometer 153H 01/04/17 22:03: Glucometer 137H 01/05/17 04:45: White Blood Count 11.9H, Red Blood Count 3.42L, Hemoglobin 8.4L, Hematocrit 28L , Mean Corpuscular Volume 82, Mean Corpuscular Hemoglobin 25, Mean Corpuscular Hemoglobin Concent 30L, Red Cell Distribution Width 17.4H, Platelet Count 244, Mean Platelet Volume 11.9H, Neutrophils (%) (Auto) 74, Lymphocytes (%) (Auto) 18 , Monocytes (%) (Auto) 7, Eosinophils (%) (Auto) 1, Basophils (%) (Auto) 0, Neutrophils # (Auto) 8.8H, Lymphocytes # (Auto) 2.1, Monocytes # (Auto) 0.8, Eosinophils # (Auto) 0.1, Basophils # (Auto) 0.0, Sodium Level 139, Potassium Level 3.7, Chloride Level 112H, Carbon Dioxide Level 17L, Anion Gap 10, Blood Urea Nitrogen 5L, Creatinine 0.75, Estimat Glomerular Filtration Rate > 60, BUN/ Creatinine Ratio 7, Glucose Level 100, Calcium Level 7.9L, Total Bilirubin 0.3, Aspartate Amino Transf (AST/SGOT) 18, Alanine Aminotransferase (ALT/SGPT) 18, Alkaline Phosphatase 62, Total Protein 5.6L, Albumin 2.7L Assessment/Plan Assessment/Plan Assessment/Plan S/P Aline's procedure with end Colostomy ---Increase to ADA diet, heplock IV. Will keep pt one more day to monitor ostomy. Clinical Quality Measures DVT/VTE Risk/Contraindication: Risk Factor Score Per Nursin RFS Level Per Nursing on Admit: 4+=Very High KIRBY CEVALLOS DO Jan 05, 2017 10:56
[2017-01-05 12:00] VITALS: BP 126/78
--- NOTE | 2017-01-05 14:15 | Anesthesia-General Post-Op ---
General Patient Condition Mental Status/LOC: Same as Preop Cardiovascular: Satisfactory Nausea/Vomiting: Absent Respiratory: Satisfactory Pain: Controlled Complications: Absent Post Op Complications Complications None Follow Up Care/Instructions Patient Instructions None needed. Anesthesia/Patient Condition Patient Condition Patient is doing well, no complaints, stable vital signs, no apparent adverse anesthesia problems. No complications reported per nursing. GAURAV PORTER CRNA Jan 05, 2017 14:15
[2017-01-05] MEDS: ENOXAPARIN 40 MG/0.4 ML (LOVENOX) SYR SC SCH (14:44)
[2017-01-05 15:44] VITALS: BP 135/85
[2017-01-05] MEDS: inSUlin DETERMIR 1 UNIT/0.01 ML (LEVEMIR) CHARGE PER UNIT SQ SCH (21:55)
[2017-01-06] VITALS: BP 130/63
[2017-01-06] MEDS: LACTATED RINGERS 1,000 ML IV SCH ×2 (05:43→13:27)
[2017-01-06] MEDS: inSUlin (REGULAR) HUMAN 1 UNIT/0.01 ML (CHARGE PER UNIT) SC SCH ×2 (05:56→11:45)
[2017-01-06 08:00] VITALS: BP 126/61
[2017-01-06] MEDS: ACETAMINOPHEN 500 MG TAB (TYLENOL) PO PRN (09:00)
--- NOTE | 2017-01-06 12:17 | Progress Note ---
Subjective Time Seen by Provider: 11:56 Subjective/Events-last exam Pt seen and examined, had headache last night - no other problems. Ostomy functioning, she is tolerating diet. Review of Systems General: No Chills, No Night Sweats Pulmonary: No Dyspnea, No Cough Gastrointestinal: No: Abdominal Pain Objective Exam Vital Signs Date Time Temp Pulse Resp B/P (MAP) Pulse Ox O2 Delivery O2 Flow Rate FiO2 01/06/17 08:00 99.6 90 24 126/61 95 Room Air 01/06/17 00:00 99.1 106 18 130/63 98 Room Air 01/05/17 18:55 Room Air 01/05/17 15:44 97.6 99 20 135/85 97 Room Air I & O 01/06/17 07:00 Intake Total 2330 ml Output Total 1325 ml Balance 1005 ml Capillary Refill : General Appearance: No Apparent Distress, WD/WN Respiratory: Chest Non Tender, Lungs Clear, Normal Breath Sounds Cardiovascular: Regular Rate, Rhythm, No Murmur Gastrointestinal: other (+ostomy function, ostomy now looks much better - appears to have sloughed off necrotic tissue and looks pink. It is slightly retracted along the inferior edge. Incisions C/D/I) Results Lab Laboratory Tests 01/05/17 16:33: Glucometer 101 01/05/17 21:19: Glucometer 161H 01/06/17 05:49: Glucometer 137H 01/06/17 11:27: Glucometer 162H Assessment/Plan Assessment/Plan Assessment/Plan S/P Aline's procedure with end Colostomy --D/C IV, D/C Home Clinical Quality Measures DVT/VTE Risk/Contraindication: Risk Factor Score Per Nursin RFS Level Per Nursing on Admit: 4+=Very High KIRBY CEVALLOS DO Jan 06, 2017 12:17
--- NOTE | 2017-01-06 12:20 | Discharge Inst-Surgical ---
Discharge Inst-Surgical Depart Medication/Instructions Patient Instructions Follow up Appt: Make appointment for 1 week. [phone] Instructions: No strenuous activity. May shower in 24 hours, no tub bath or soaking. Use incentive spirometer at home as directed. No Smoking Skin/Wound Care: Home health has been set up to come out Saturday and give more Ostomy training. Symptoms to Report: Appetite Changes, Extremity Discoloration, Numbness/Tingling, Swelling Increased , Bleeding Excessive, Eyesight Changes, Pain Increased, Urine Color Change, Constipation(Persistent), Fever over 101 degree F, Pain/Pressure in chest, Urinating Difficulty, Cough Up/Vomit Blood, Heart Beat Irreg/Pounding, Pain/ Pressure in jaw, Vaginal Bleeding Increase, Cramps in feet or legs, Lightheadedness, Pain/Pressure in shoulder, Diarrhea(Persistent), Memory Changes Suddenly, Questions/Concerns, Weight gain consecutive days, Dizziness/ Fainting, Nausea/Vomiting, Shortness of Breath, Weight gain over 2 pounds If questions or concerns contact your physician Or seek help at emergency department. Diet Discharge Diet: ADA Diet If Any Problems/Questions/Issu: Contact Your Physician, Go to Emergency Room Skin/Wound Care Infection Signs and Symptoms: Increased Redness, Foul Odor of Wound, Increased Drainage, Skin Itchy or Has a Rash, Increased Swelling, Temperature Above 101 F KIRBY CEVALLOS DO Jan 06, 2017 12:20
[2017-01-06 13:51] VITALS: BP 126/61
--- NOTE | 2017-01-08 10:08 | Physician Query ---
PQ-Further Specificity Admission/Discharge Admission Date: Jan 04, 2017 at 07:18 Discharge Date: Jan 06, 2017 at 13:30 The medical record reflects the following clinical scenario: History/Risk Factors: Paraplegia, sacral ulcer Clinical Findings: diarrhea Treatment: Aline's procedure w/end colostomy Question: Can you further specify the colon parts removed and used for the colostomy? Please document below. 1. Was the entire rectum and sigmoid resected? Portion of the rectum and sigmoid resected? Entire rectum and a portion of the sigmoid resected? No, only resected small portion of the distal sigmoid. 2. For the colostomy, was the sigmoid or descending colon used for the colostomy ? sigmoid colon 3. Other, with explanation of the clinical findings. n/a 4. Clinically undetermined, no explanation for the clinical findings. PHYSICIAN RESPONSE Can you specify per above: 1 In responding to this query, please exercise your independent professional judgment. The purpose of this communication is to more accurately reflect the complexity of your patients condition. The fact that a question is asked does not imply that any particular answer is desired or expected. Thank you for your timely response to this clarification. Requestors name: Nhi THIS PHYSICIAN QUERY FORM IS A PERMANENT PART OF THE MEDICAL RECORD NHI BOOGIE Jan 08, 2017 10:08 KIRBY CEVALLOS DO Jan 10, 2017 12:21
== END 2017-01-06 13:30 | disposition home health service (06) | DRG 330 ==
LOC: SURGICAL 07:18 → SURG 07:19 → 4TH 14:14
PROVIDERS: ADMIT Surgery; ATTEND Surgery
PROC: 0D1N4Z4 Bypass Sigmoid Colon to Cutaneous, Percutaneous Endoscopic Approach (ICD-10-PCS; 2017-01-04)
PROC: 0DB Gastrointestinal System, Excision (ICD-10-PCS; principal; 2017-01-04 09:16)
DX: R19.7 Diarrhea, unspecified (principal); L89.159 Pressure ulcer of sacral region, unspecified stage; G82.20 Paraplegia, unspecified; S24.102S Unspecified injury at T2-T6 level of thoracic spinal cord, sequela; E11.9 Type 2 diabetes mellitus without complications; Z79.84 Long term (current) use of oral hypoglycemic drugs; Z90.5 Acquired absence of kidney
CPT/HCPCS: 36415; 80053; 82962; 84703; 85025; 94760

== ENCOUNTER → 2017-03-14 | Outpatient (CLI) | payer MEDICARE, MEDICAID ==
[~2017-03-14] MED LIST changes: +AMOX1TAB12 PO
--- NOTE | 2017-03-14 17:45 | Diagnostic Imaging Report ---
PROCEDURE: CT urinary tract, rule out kidney stone. TECHNIQUE: Multiple contiguous axial images were obtained through the abdomen and pelvis without the use of intravenous contrast. INDICATION: Right flank pain and swelling. Hematuria. Previous bladder reconstruction and right nephrectomy. FINDINGS: The heart size is normal. The lung bases are clear. There is marked hepatomegaly. The gallbladder is surgically absent. There is no biliary ductal dilatation. The spleen is normal. The pancreas is unremarkable. The adrenal glands are unremarkable. There has been previous right nephrectomy. There are multiple cysts in the left kidney. There are also several nonobstructing stones ranging in size from 1-2 mm up to 8 mm. There is no evidence of obstructive uropathy on the left. There is a left lower quadrant colostomy. There is a cyst in the left adnexa, presumably of ovarian origin. This measures 5.4 cm. There is a somewhat irregular appearance of the bladder, which has air within it. This is presumably due to previous reconstruction. There are degenerative changes in the spine. IMPRESSION: Irregular appearance of the bladder which has some air within it. This is presumably due to previous surgical reconstruction and possibly self cathing. Recommend clinical correlation, and if warranted, this could be better evaluated with either cystoscopy or cystogram. Multiple left renal cysts as well as multiple nonobstructing left renal calculi. Hepatomegaly. Left adnexal cyst measuring up to 5.3 cm. This could be better evaluated with pelvic ultrasound if clinically warranted. No evidence of residual or recurrent mass in the right renal fossa. Dictated by: Dictated on workstation # [id number]
== END ==
LOC: RAD 16:19
DX: N20.0 Calculus of kidney (principal); N28.1 Cyst of kidney, acquired; Z90.5 Acquired absence of kidney; N30.91 Cystitis, unspecified with hematuria
CPT/HCPCS: 74176

== ENCOUNTER → 2017-07-04 | Outpatient (CLI) | payer MEDICARE, MEDICAID | LOC: WOUNDCARE 13:08 | PROVIDERS: ATTEND Nurse Practitioner | DX: L89.133 Pressure ulcer of right lower back, stage 3 (principal); B37.89 Other sites of candidiasis | CPT/HCPCS: 11042; 87070; 87075; 87205 ==

== ENCOUNTER → 2017-07-18 | Outpatient (CLI) | payer MEDICARE, MEDICAID | LOC: WOUNDCARE 13:46 | PROVIDERS: ATTEND Nurse Practitioner | DX: L89.133 Pressure ulcer of right lower back, stage 3 (principal); B37.89 Other sites of candidiasis | CPT/HCPCS: 11042 ==

== ENCOUNTER 2017-09-29 14:13 | Emergency (ER) | payer MEDICARE, MEDICAID ==
[~2017-09-29] VITALS: Ht 160 cm; Wt 65.3 kg
[2017-09-29 15:25] LABS: BILIRUBIN,URINE NEGATIVE (NEGATIVE); CLARITY,URINE CLEAR; COLOR,URINE YELLOW; GLUCOSE, URINE (UA) NEGATIVE (NEGATIVE); KETONES,URINE NEGATIVE (NEGATIVE); LEUKOCYTE ESTERASE ,URINE 3+ (NEGATIVE); NITRITE,URINE POSITIVE (NEGATIVE); PH,URINE 6.5 (5-9); PROTEIN,URINE 2+ (NEGATIVE); UROBILINOGEN,URINE NORMAL (NORMAL)
[2017-09-29 15:26] LABS: BASOPHILS % (AUTO) 0 % (0-10); EOSINOPHILS # (AUTO) 0.1 10^3/uL (0.0-0.3); EOSINOPHILS % (AUTO) 1 % (0-10); HEMATOCRIT 35 % (35-52); HEMOGLOBIN 11.4 G/DL (11.5-16.0); LYMPHOCYTES # (AUTO) 3.1 X 10^3 (1.0-4.0); LYMPHOCYTES % (AUTO) 26 % (12-44); MEAN CORPUSCULAR HEMOGLOBIN 29 PG (25-34); MEAN CORPUSCULAR HGB CONC 33 G/DL (32-36); MEAN CORPUSCULAR VOLUME 89 FL (80-99); MONOCYTES # (AUTO) 0.5 X 10^3 (0.0-1.0); MONOCYTES % (AUTO) 4 % (0-12); NEUTROPHILS % (AUTO) 69 % (42-75); PLATELET COUNT 380 10^3/uL (130-400); RED BLOOD COUNT 3.96 10^6/uL (4.35-5.85); RED CELL DISTRIBUTION WIDTH 14.9 % (10.0-14.5); WHITE BLOOD COUNT 11.7 10^3/uL (4.3-11.0)
[2017-09-29 15:42] LABS: BACTERIA,URINE FEW /HPF; RBC,URINE 50-100 /HPF; WBC,URINE TNTC /HPF
[2017-09-29 15:53] LABS: ALANINE AMINOTRANSFERASE 41 U/L (0-55); ALBUMIN 4.2 GM/DL (3.2-4.5); ALKALINE PHOSPHATASE 95 U/L (40-136); BILIRUBIN,TOTAL 0.2 MG/DL (0.1-1.0); BUN/CREATININE RATIO 15; CALCIUM 9.3 MG/DL (8.5-10.1); CARBON DIOXIDE 14 MMOL/L (21-32); CHLORIDE 112 MMOL/L (98-107); CREATININE SERUM 0.95 MG/DL (0.60-1.30); GFR ESTIMATED > 60; GLUCOSE 95 MG/DL (70-105); POTASSIUM 3.6 MMOL/L (3.6-5.0); SODIUM 140 MMOL/L (135-145); TOTAL PROTEIN 8.6 GM/DL (6.4-8.2)
[2017-09-29] MEDS ORDERED: LEVO500T2 PO (16:09)
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
[2017-09-29 16:36] VITALS: BP 123/76
== END 2017-09-29 16:36 | disposition home or self-care (01) ==
LOC: EDUNIT# 14:13 → ER 14:14
DX: N39.0 Urinary tract infection, site not specified (principal); E11.9 Type 2 diabetes mellitus without complications; Z87.442 Personal history of urinary calculi; Z85.42 Personal history of malignant neoplasm of other parts of uterus; Z87.828 Personal history of other (healed) physical injury and trauma; Z87.59 Personal history of other complications of pregnancy, childbirth and the puerperium; Z79.4 Long term (current) use of insulin; Z91.040 Latex allergy status; Z88.1 Allergy status to other antibiotic agents; Z88.6 Allergy status to analgesic agent; Z88.2 Allergy status to sulfonamides
CPT/HCPCS: 36415; 80053; 81000; 82962; 85025; 85027; 87077; 87088; 87186; 99282

== ENCOUNTER → 2019-03-24 | Outpatient (CLI) | payer MEDICARE, MEDICAID ==
[~2019-03-24] MED LIST changes: +LEVO500T2 PO; +METF-397 PO; -METF500T4 PO
--- NOTE | 2019-03-27 07:32 | Diagnostic Imaging Report ---
Digital mammogram. Bilateral screening with tomosynthesis and CAD. This study was compared to prior exam of 12/14/2014. At this time, there are no current complaints. There are scattered fibroglandular densities in both breasts which could obscure a lesion. The results of the biopsy are not known to me but the patient did not report any personal history of breast cancer. There is no primary or secondary sign of malignancy noted. Impression: 1. There are postbiopsy changes involving the left breast. There is no evidence of malignancy of either breast. 2. A followup exam in one year would recommend for continued evaluation. ACR BI-RADS Category 1: Negative. Result letter will be mailed to the patient. Note: At least 10% of breast cancer is not imaged by mammography. Dictated by: Dictated on workstation # [id number]
== END ==
LOC: RAD 08:31
PROVIDERS: ATTEND Internal Medicine
DX: Z12.31 Encounter for screening mammogram for malignant neoplasm of breast (principal)
CPT/HCPCS: 77067

== ENCOUNTER 2019-04-05 18:23 | Emergency (ER) | payer MEDICARE, MEDICAID ==
[~2019-04-05] VITALS: Ht 160 cm; Wt 77.1 kg
[2019-04-05] MEDS ORDERED: LIDOCAINE 1% INJ 20 ML 20 ML VIAL INJ ONE (19:45)
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
[2019-04-05] MEDS ORDERED: CEPH500T PO (20:29)
[2019-04-05 20:32] VITALS: BP 122/74
== END 2019-04-05 20:32 | disposition home or self-care (01) ==
LOC: EDUNIT# 18:23 → ER 18:24
DX: S81.811A Laceration without foreign body, right lower leg, initial encounter (principal); E11.9 Type 2 diabetes mellitus without complications; Z85.42 Personal history of malignant neoplasm of other parts of uterus; Z87.442 Personal history of urinary calculi; Z87.19 Personal history of other diseases of the digestive system; Z91.040 Latex allergy status; Z88.1 Allergy status to other antibiotic agents; Z88.5 Allergy status to narcotic agent; Z88.2 Allergy status to sulfonamides; Z88.8 Allergy status to other drugs, medicaments and biological substances; Z79.4 Long term (current) use of insulin; Z93.3 Colostomy status; W26.8XXA Contact with other sharp object(s), not elsewhere classified, initial encounter
CPT/HCPCS: 99281

== ENCOUNTER 2019-11-12 13:22 | Inpatient (IN) | payer MEDICARE, MEDICAID ==
[~2019-11-12] VITALS: Ht 160 cm; Wt 77.0 kg
[2019-11-12] VITALS (9 sets, daily range): BP systolic 94–161; BP diastolic 56–85
[~2019-11-12 13:22] MED LIST changes: +CEPH500T PO
--- NOTE | 2019-11-12 13:30 | NUR ---
ATTEMPT FOR ST CATH BY EWA FELDMAN.
[2019-11-12] MEDS ORDERED: IBUPROFEN 800 MG (MOTRIN) TAB PO ONE (13:45)
[2019-11-12] MEDS ORDERED: ONDANSETRON 4 MG/2 ML (SDV) Z0FRAN IV PRN ×2 (13:45→16:45)
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
[2019-11-12 13:52] LABS: BASOPHILS % (AUTO) 0 % (0-10); EOSINOPHILS # (AUTO) 0.1 10^3/uL (0.0-0.3); EOSINOPHILS % (AUTO) 0 % (0-10); HEMATOCRIT 22 % (35-52); LYMPHOCYTES # (AUTO) 1.8 X 10^3 (1.0-4.0); LYMPHOCYTES % (AUTO) 11 % (12-44); MEAN CORPUSCULAR HEMOGLOBIN 26 PG (25-34); MEAN CORPUSCULAR HGB CONC 30 G/DL (32-36); MEAN CORPUSCULAR VOLUME 89 FL (80-99); MONOCYTES % (AUTO) 6 % (0-12); NEUTROPHILS # (AUTO) 14.1 X 10^3 (1.8-7.8); NEUTROPHILS % (AUTO) 83 % (42-75); PLATELET COUNT 413 10^3/uL (130-400); RED CELL DISTRIBUTION WIDTH 16.3 % (10.0-14.5); WHITE BLOOD COUNT 16.9 10^3/uL (4.3-11.0)
[2019-11-12 13:55] LABS: HEMOGLOBIN 6.6 G/DL (11.5-16.0)
[2019-11-12 14:03] LABS: ALBUMIN 3.6 GM/DL (3.2-4.5); POTASSIUM 3.3 MMOL/L (3.6-5.0)
[2019-11-12 14:04] LABS: CALCIUM 8.6 MG/DL (8.5-10.1)
[2019-11-12 14:05] LABS: TOTAL PROTEIN 7.6 GM/DL (6.4-8.2)
[2019-11-12 14:07] LABS: BILIRUBIN,TOTAL 0.2 MG/DL (0.1-1.0); INR 1.2 (0.8-1.4); PROTHROMBIN TIME PATIENT 15.6 SEC (12.2-14.7)
[2019-11-12 14:09] LABS: CREATININE SERUM 1.26 MG/DL (0.60-1.30)
--- NOTE | 2019-11-12 14:37 | Diagnostic Imaging Report ---
INDICATION: Fever. TIME OF EXAM: 2:26 PM CORRELATION is made with prior chest from 01/15/2017. FINDINGS: The heart size is stable. The lungs are clear. The pulmonary vascularity is normal. No infiltrate, effusion or pneumothorax is detected. Spinal instrumentation within the thoracic spine is again noted. IMPRESSION: No acute cardiopulmonary process is detected. Dictated by: Dictated on workstation # [id number]
[2019-11-12 14:41] LABS: ANISOCYTOSIS SLIGHT; BAND NEUTROPHILS 3 %; BASOPHILS % (MANUAL) 0 %; EOSINOPHILS % (MANUAL) 0 %; HYPOCHROMASIA SLIGHT; LYMPHOCYTES % (MANUAL) 10 %; MONOCYTES % (MANUAL) 3 %; NEUTROPHILS % (MANUAL) 84 %
--- NOTE | 2019-11-12 14:49 | NUR ---
RESTING IN BED ET STATE SHE FEELS BETTER.
--- NOTE | 2019-11-12 15:03 | NUR ---
PT TRYING TO ST CATH HER SELF ET UNABLE TO DO SO. STATES SHE NEEDS A STIFFER CATH. STORE KEEPER NOTIFIED.
--- NOTE | 2019-11-12 15:03 | Diagnostic Imaging Report ---
PROCEDURE: CT abdomen and pelvis without contrast. TECHNIQUE: Multiple contiguous axial images were obtained through the abdomen and pelvis without the use of intravenous contrast. Auto Exposure Controls were utilized during the CT exam to meet ALARA standards for radiation dose reduction. INDICATION: Three weeks of heavy bleeding with abdominal pain and fever. Patient has a history of ovarian cancer. COMPARISON: Study compared with exam 03/14/2017. FINDINGS: Cysts and lower pole calyceal diverticula with intraluminal stones in the left kidney at the lower pole are an unchanged finding. Fatty infiltration of the liver and previous cholecystectomy appear unchanged. No pathological bile duct dilatation. The left adnexal mass effect previously measured 5.4 x 3.3 cm and measured fluid density. Today this is more lobulated and either contains complex fluid or soft tissue and measures 6.7 x 5.3 cm. The right adnexa is unremarkable. There is no identifiable abnormal thickening along the endometrium. No appreciable myometrial mass. Some chronic linear scarring and induration of the fat lateral to the nonacute right hip is a chronic finding. There is no ascites. There is a left lower quadrant ostomy without parastomal hernia. There is no evidence for a bowel obstruction. There are postsurgical changes along the anterior wall and dome of the urinary bladder. Aside from its interval decreased distention, it showed no other change when compared to the prior. There is no mesenteric or retroperitoneal lymphadenopathy. The aorta is nonaneurysmal. The lung bases nonacute. There are degenerative and postoperative changes to the visualized spine with no acute appearing bony abnormality. IMPRESSION: 1. Solitary left kidney with unchanged cysts and/or calyceal diverticuli associated with dependent intraluminal stones at its lower pole, unchanged. No ureteral dilatation or bladder stone with postoperative distortion of the anterior wall and dome of the urinary bladder, chronic. 2. Left adnexal lesion is larger and appears more complex and more solid than when compared to the prior. This would be better characterized with contrast-enhanced imaging or pelvic ultrasound. 3. No bowel biliary or urinary tract obstruction with chronic fatty infiltration of the liver. Dictated by: Dictated on workstation # [id number]
--- NOTE | 2019-11-12 15:23 | NUR ---
PT WAS ABLE TO ST CATH HERSELF.
[2019-11-12 15:28] LABS: BILIRUBIN,URINE NEGATIVE (NEGATIVE); CLARITY,URINE CLEAR; COLOR,URINE YELLOW; GLUCOSE, URINE (UA) 1+ (NEGATIVE); KETONES,URINE NEGATIVE (NEGATIVE); LEUKOCYTE ESTERASE ,URINE 2+ (NEGATIVE); NITRITE,URINE POSITIVE (NEGATIVE); PROTEIN,URINE 2+ (NEGATIVE)
[2019-11-12 15:41] LABS: BACTERIA,URINE LARGE /HPF; WBC,URINE 50-100 /HPF
--- NOTE | 2019-11-12 15:57 | NUR ---
ATTEMPT TO CALL REPORT ET NO ANSWER.
--- NOTE | 2019-11-12 16:21 | NUR ---
JARRETT CARMONA admitted to room 402-1, with an admitting diagnosis of SEPSIS, UTI, AND ANEMIA , on 11/12/19 from ED via , accompanied by .JARRETT CARMONA introduced to surroundings, call light, bed controls, phone, TV, temperature control, lights, meal times, smoking policy, visitor policy, side rail policy, bathrooms and showers. Patient Rights given to patient in the handbook. JARRETT CARMONA verbalizes understanding that [facility] is not responsible for the loss or damage to any personal effects or valuables that are kept in the patients posession during their hospitalization. JARRETT CARMONA verbalizes understanding of Interdisciplinary Patient Education. Patient and/or family were informed about the Rapid Response Team and its purpose.
[2019-11-12] MEDS ORDERED: CATHETER FLUSH 10 ML SYR IV PRN ×2 (16:45)
[2019-11-12] MEDS ORDERED: NS IV 500 ML 500 ML IV SCH ×2 (16:45→17:30)
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
--- OUTSIDE RECORDS SUMMARY | 2019-11-12 16:52 | XMS REPORT | Encounter Summary ---
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 Name Role Phone Pb Ibrahim MD Unavailable [...] Unavailable Unavailable Kathy Gifford RN Unavailable Unavailable Encounter Details Care Team Description Date Type Department 10/02/2019 [facility] [address] [address] Social History Date Tobacco Use Types Packs/Day Years Used Never Smoker Smokeless Tobacco: Never Used Drinks/Week oz/Week Comments Alcohol Use No Sex Assigned at Date Recorded Not on file Industry Job Start Date Occupation Not on file Not on file Not on file Travel End Travel History Travel Start No recent travel history available. documented as of this encounter Functional Status Date of Assessment Functional Status Response 03/04/2016 Does the patient have a hearing impairment: No 03/04/2016 Does the patient have a visual impairment: No 03/04/2016 Does the patient have impaired ambulation: Yes 03/04/2016 Does the patient have an activity of daily living Ye s (ADL) impairment: 03/04/2016 Does the patient have an instrumental activity of No daily living (IADL) impairment: Date of Assessment Cognitive Status Response 03/04/2016 Does the patient have a cognitive impairment: No documented as of this encounter Medications at Time of Discharge Start Date End Date Medication Sig Dispensed Refills acetaminophen (TYLENOL) Take 500 mg 0 500 mg tablet by mouth twice daily as needed for Pain (body aches). bisacodyl (DULCOLAX) 10 Insert or 0 mg rectal suppository Apply 10 mg to rectal area as directed at bedtime as needed. Cranberry Extract 300 mg Take 1 Tab by 0 tab mouth daily. famotidine (PEPCID) 20 mg Take 20 mg by 0 tablet mouth as Needed. ferrous sulfate 325 mg Take 325 mg 0 (65 mg iron) tablet by mouth daily. fish oil /omega-3 fatty Take 1 Cap by 0 acids (SEA-OMEGA) mouth at 340/1000 mg capsule bedtime daily. INSULIN ASPART (NOVOLOG Inject 8 0 SC) Units under the skin three times daily. insulin detemir(+) Inject into 0 (LEVEMIR) 100 unit/mL area(s) as solnIndications: 26 units directed in the AM and 36 units at twice daily HS before meals. Indications: 26 units in the AM and 36 units at HS lactobacillus rhamnosus Take 1 Cap by 0 GG (LACTOBACILLUS mouth daily RHAMNOSUS (GG)) 15 with billion cell cpSP breakfast. metFORMIN (GLUCOPHAGE) Take 500 mg 0 500 mg tablet by mouth twice daily with meals. 03/04/2016 milk of magnesia (CONC) Take 10 mL by 0 2,400 mg/10 mL oral mouth twice suspension daily. 04/17/2017 neomycin/polymyxin B 50 mL by 3 Bottle 11 40-200,000 mg-unit/mL 1 Irrigation mL in sodium chloride route daily. 0.9% irrigation bottle Refrigerate; 0.9 % 500 mL irrigation protect from light 10/08/2014 ondansetron (ZOFRAN) 4 mg Take 1 Tab by 30 Tab 2 tablet mouth every 8 hours as needed for Nausea. 10/19/2014 prochlorperazine Take 1 Tab by 30 Tab 1 (COMPAZINE) 10 mg tablet mouth every 6 hours as needed. 03/04/2016 senna/docusate Take 1 Tab by 0 (SENOKOT-S) 8.6/50 mg mouth twice tablet daily. 04/10/2017 trimethoprim (TRIMPEX) Take 1 tablet 14 tablet 0 100 mg tabletIndications: by mouth Urinary tract infection, twice daily. site unspecified 03/05/2017 trimethoprim (TRIMPEX) Take 1 Tab by 14 Tab 0 100 mg tabletIndications: mouth twice Recurrent UTI, Kidney daily. stones vitamins, multiple tablet Take 1 Tab by 0 mouth daily. documented as of this encounter Plan of Treatment Not on filedocumented as of this encounter Procedures Comments Procedure Name Priority Date/Time Associated Diag nosis US PELVIS EXTERNAL Routine 10/02/2019 IMAGING 12:00 AM CNS documented in this encounter Results * US PELVIS EXTERNAL IMAGING (10/02/2019 12:00 AM CNS) Specimen Narrative Performed At This order has been auto finalized and does not contain a result. 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
--- OUTSIDE RECORDS SUMMARY | 2019-11-12 16:53 | XMS REPORT ---
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 [facility] [Entitic mass] [facility] (94816) MCHC (RBC) 31.0 g/dL (L) 32 - 36 g/dL [facility] [Mass/Vol] [facility] (84259) MCV (RBC) 82.3 fL (N) 80 - 100 fL [facility]ly [facility] lt [Entitic vol] [facility] (58754) Monocytes (Bld) 0.5 10*3/uL (N) 0.3 - 0.9 [facility] Health [#/Vol] 10*3/uL [facility] (80308) Monocytes/100 5.0 % (N) 2 - 8 % [facility] WBC (Bld) [facility] (83114) Neutrophils 6.31 10*3/uL (N) 1.7 - 7 10*3/uL [facility] (Bld) [#/Vol] [facility] (25664) Neutrophils/100 63.1 % (N) 40 - 60 % [facility] WBC (Bld) [facility] (61495) pH (Bld) 6.5 [pH] (no code) 7.38 - 7.42 [pH] [facility] (31073) Platelet mean 11.0 fL (N) 7.2 - 11.7 fL [facility] volume (Bld) [facility] [Entitic vol] [facility] (60890) Platelets (Bld) 346 10*3/uL (N) 150 - 450 [facility] [#/Vol] 10*3/uL [facility] (19468) Potassium 4.8 mmol/L (N) 3.7 - 5.2 mmol/L [facility] [Moles/Vol] [facility] (75925) Protein (U) 1+ (no code) [facility] [Mass/Vol] [facility] () Protein 7.9 g/dL (N) 6.4 - 8.3 g/dL [facility] [Mass/Vol] [facility] (57957) RBC (Bld) 4.19 10*6/uL (N) 4.2 - 6.1 [facility] [#/Vol] 10*6/uL [facility] (45113) SG 1.015 (no code) [facility] () Sodium 134 mmol/L (L) 135 - 145 mmol/L [facility] [Moles/Vol] [facility] (76587) Urea nitrogen 12 mg/dL (N) 7 - 20 mg/dL [facility] [Mass/Vol] [facility] (53500) Urea NOT APPLICABLE (no code) [facility] nitrogen/Creatin [facility] [Mass ratio] [facility] (57496) URO 0.2 (no code) [facility] (74242) WBC (Bld) 10.0 10*3/uL (N) 3.5 - 10.5 [facility] [#/Vol] 10*3/uL [facility] (17689) No panel information on 2019-04-10 Bacteria SEE NOTE (no code) [facility] identified Cx [facility] (30497) Exp date 09/2020 (no code) [facility] (69933) Lot 8.4~[id number] (no code) [facility] (64003) No panel information on 2018-10-27 Exp date 04/2020 (no code) [facility] Healt [facility] (12036) Lot 8.1~7.8~0941 (no code) [facility] (98967) No panel information on 2018-09-11 Bacteria SEE NOTE (A) [facility] identified Cx [facility] () [facility] (48563) No panel information on 2017-12-02 Bacteria SEE NOTE (A) [facility] identified Cx [facility] ([facility] (73635) No panel information on 2016-09-20 Bacteria Note (no code) 09-20-2016 Not Available identified Cx 17:26-0500 ([id number]) [facility] (U) Vital Signs Vital Sign Value Interpretation Reference Date Time Care Prov ider Facility (Normalized) (Normalized) Range BMI (Body Mass 27.99 kg/m2 (no code) 15 - 25 kg/m2 02-05-2018 Carlos AVILES Community Index) 15:40-0400 [id number] [facility] (38679) BMI (Body Mass 26.75 kg/m2 (no code) 15 - 25 kg/m2 11-08-2017 Sudha MCCRAY Community Index) 17:20-0400 68222 [facility] (21409) Body 98.7 [degF] (no code) 97.8 - 99.0 06-03-[address] Community Temperature [degF] 17:40-0500 94534 [facility] (08218) Body 98.3 [degF] (no code) 97.8 - 99.0 02-05-2018 ROSANGELA STILL RL Community Temperature [degF] 15:40-[address] [facility] [facility] (43909) Body 98.4 [degF] (no code) 97.8 - 99.0 12-02-2017 [facility] Temperature [degF] 15:40-[address] [facility] (95371) Body 98.7 [degF] (no code) 97.8 - 99.0 11-08-2017 [facility] Temperature [degF] 17:20-[address] [place] [address] [facility] (69137) Body 97.5 [degF] (no code) 97.8 - 99.0 08-26-2017 [facility] Temperature [degF] 15:40-[address] [place], [place] [address] [facility] (93309) Body 98.5 [degF] (no code) 97.8 - 99.0 06-25-2017 [facility] Temperature [degF] 15:40-[address] [place], [place] [address] [facility] (17673) Height 160.02 cm (no code) cm 06-03-2018 [facility] 17:40-[id number] [place] [address] (77192) Height 160.02 cm (no code) cm 02-05-2018 ROSANGELA Harvey [facility] 15:40-[id number] [place] [address] (07500) Height 160.02 cm (no code) cm 12-02-2017 [facility] 15:40-[id number] [place] [address] (48752) Height 160.02 cm (no code) cm 11-08-2017 [facility] 17:20-[id number] [place] [address] (66672) Height 160.02 cm (no code) cm 08-26-2017 [facility] 15:40-[address] [place] [address] (28552) Height 160.02 cm (no code) cm 06-25-2017 [facility] 15:40-[id number] [place] [address] (87078) Pulse Oximetry 0 % (no code) 95 - 100 % 02-05-2018 ROSANGELA Lopez 15:40-0400 98173 [facility] (81283) Weight 71.67 kg (no code) kg 02-05-2018 ROSANGELA Fortune [facility] 15:40-0400 53445 [facility] (36207) Weight 68.49 kg (no code) kg 11-08-2017 EDWARDO Harvey [facility] 17:20-0400 80506 [facility] (23956) Interventions No Information Plan of Treatment Normalized Care Care Detail Care Activity Date Care Provider F acility Activity Collection venous no information no information EDWARDO MCCRAY [phone] [facility] blood venipuncture [facility] (37057) Goals No Information Social History No Information Functional Status The data below is from unstructured sources Query Response Date Tim rded Patient Orientation Person Place Time Situation Eyes Open January 18, 2017 8:00am Comprehension Ability Understands Co ncepts January 17, 2017 8:36pm No functional status information available. Mental Status No Information Encounters Encounter Normalized Encounter Encounter Diagnosis Care Provi dilia Organization Date Type 06-03-2018 (SD) Same Day Acute pyelonephritis [facility] MCCRAY [facility] (no phone) 06-03-2018 - 06-03-2018 09-28-2016 [facility] no information GERALD CRYSTAL (no estela ne) [facility] - [facility] NON[facility] (no phone) 09-28-2016 - 09-28-2016 06-26-2016 [facility] Urinary tract LADARIUS Haddad (no [facility] CARE infection, site not phone) CARE ( no phone) 06-26-2016 specified - 06-26-2016 04-01-2016 [facility] Other symptoms and TAM CARE Y (no [facility] signs involving the phone) [facility] (no phone) 04-01-2016 genitourinary system (no phone) - 04-01-2016 02-07-2016 [facility] Urinary tract JUDY AYALA (no p cristina) [facility] infection, site not JUDY Yanez (no CARE (no phone) 02-07-2016 specified phone) JUDY Brito L - (no phone) 02-07-2016 01-10-2016 [facility]inary tract JUDY JAMIE (no p cristina) [facility] infection, site not JUDY BritoL (no CARE (no phone) 01-10-2016 specified phone) JUDY Brito L - (no phone) 01-10-2016 02-06-2018 [facility] no information EDWARDO MCCRAY (no [facility] - phone) (no phone) 02-06-2018 - 02-06-2018 02-05-2018 [facility] Acute cystitis with ROSANGELA VELASQUEZ (no [facility] - hematuria phone) (no phone) 02-05-2018 - 02-05-2018 12-05-2017 [facility] Acute cystitis without EDWARDO MCCRAY (no [facility] - hematuria phone) (no phone) 12-05-2017 - 12-05-2017 12-04-2017 [facility] no information EDWARDO MCCRAY (no [facility] - phone) (no phone) 12-04-2017 - 12-04-2017 12-02-2017 [facility] Other specified EDWARDO MCCRAY (no [facility] - disorders of phone) (no phone) 12-02-2017 Eustachian tube, - bilateral 12-02-2017 11-08-2017 [facility] Encounter for general EDWARDO URRUTIA (no [facility] - adult medical phone) (no phone) 11-08-2017 examination without - abnormal findings 11-08-2017 11-08-2017 [facility] no information EDWARDO MCCRAY (no [facility] - phone) (no phone) 11-08-2017 - 11-08-2017 10-21-2017 [facility] Type 2 diabetes EDWARDO MCCRAY (no [facility] - mellitus without phone) (no phone) 10-21-2017 complications - 10-21-2017 09-30-2017 [facility] no information EDWARDO MCCRAY (no [facility] - phone) (no phone) 09-30-2017 - 09-30-2017 09-06-2017 [facility] Viral intestinal ROSANGELA AVILES (no [facility] - infection, unspecified phone) (no estela ne) 09-06-2017 - 09-06-2017 08-26-2017 [facility] Incontinence without EDWARDO ZHU (no [facility] - sensory awareness phone) (no phone) 08-26-2017 - 08-26-2017 08-22-2017 [facility] no information EDWARDO MCCRAY (no [facility] - phone) (no phone) 08-22-2017 - 08-22-2017 06-25-2017 [facility] Non-pressure chronic EDWARDO ZHU (no [facility] - ulcer of skin of other phone) (no estela ne) 06-25-2017 sites limited to - breakdown of skin 06-25-2017 03-21-2017 [facility] no information EDWARDO MCCRAY (no [facility] - phone) (no phone) 03-21-2017 - 03-21-2017 03-15-2017 [facility] Type 2 diabetes EDWARDO MCCRAY (no [facility] - mellitus without phone) (no phone) 03-15-2017 complications - 03-15-2017 02-27-2017 [facility] no information EDWARDO MCCRAY (no [facility] - phone) (no phone) 02-27-2017 - 02-27-2017 02-07-2017 [facility] Type 2 diabetes EDWARDO MCCRAY (no [facility] - mellitus without phone) (no phone) 02-07-2017 complications - 02-07-2017 12-25-2016 [facility] no information EDWARDO MCCRAY [facility] (no phone) 12-25-2016 - 12-25-2016 11-14-2016 [facility] Type 2 diabetes EDWARDO MCCRAY ([facility] - mellitus without phone) (no phone) 11-14-2016 complications - 11-14-2016 11-02-2016 [facility] no information EDWARDO MCCRAY (no [facility] - phone) (no phone) 11-02-2016 - 11-02-2016 11-01-2016 [facility] no information EDWARDO MCCRAY (no [facility] - phone) (no phone) 11-01-2016 - 11-01-2016 10-31-2016 [facility] no information LADARIUS ASHFORD (no [facility] - phone) (no phone) 10-31-2016 - 10-31-2016 10-08-2016 [facility] Type 2 diabetes EDWARDO MCCRAY (no [facility] - mellitus without phone) (no phone) 10-08-2016 complications - 10-08-2016 10-02-2016 [facility] Type 2 diabetes EDWARDO MCCRAY (no [facility] - mellitus without phone) (no phone) 10-02-2016 complications - 10-02-2016 09-26-2016 [facility] no information EDWARDO MCCRAY (no [facility] - phone) (no phone) 09-26-2016 - 09-26-2016 09-18-2016 [facility] Urinary tract EDWARDO MCCRAY ( no [facility] - infection, site not phone) (no phone) 09-18-2016 specified - 09-18-2016 07-31-2016 [facility] Type 2 diabetes [facility]WARDO MCCRAY [facility] - [facility] without phone) (no phone) 07-31-2016 complications - 07-31-2016 07-26-2016 [facility] Type 2 diabetes [facility]WARDO MCCRAY ([facility] - mellitus without phone) (no phone) 07-26-2016 complications - 07-26-2016 07-06-2016 [facility] no information EDWARDO MCCRAY [facility]) (no phone) 07-06-2016 - 07-06-2016 07-02-2016 [facility] no information LADARIUS Crews DERS (no [facility] - phone) (no phone) 07-02-2016 - 07-02-2016 06-28-2016 [facility] Urinary tract LADARIUS zkatherineSANICKI ERS (no [facility] - infection, site not phone) (no phone) 06-28-2016 specified - 06-28-2016 06-27-2016 [facility] Urinary tract LADARIUS zkatherineSAND ERS (no [facility] - infection, site not phone) (no phone) 06-27-2016 specified - 06-27-2016 05-07-2016 [facility] no information EDWARDO MCCRAY (no [facility] - phone) (no phone) 05-07-2016 - 05-07-2016 04-10-2016 [facility] ail, subsequent EDWARDO MCCRAY [facility] phone) (no phone) 04-10-2016 - 04-10-2016 04-03-2016 [facility] no information EDWARDO MCCRAY (no [facility] - phone) (no phone) 04-03-2016 - 04-03-2016 02-27-2016 [facility] Type 2 diabetes EDWARDO MCCRAY (no [facility] - mellitus without phone) (no phone) 02-27-2016 complications - 02-27-2016 02-23-2016 [facility] Urinary tract EDWARDO MCCRAY ( [facility] - [facility], site not phone) (no phone) 02-23-2016 specified - 02-23-2016 04-05-2019 Emergency department no information [facility] no organization name - patient visit (no phone ) 04-05-2019 04-05-2019 Emergency department no information no name (no estela ne) no organization name - patient visit (no phone) 04-05-2019 09-29-2017 Emergency department no information no name (no estela ne) no organization name - patient visit (no phone) 09-29-2017 01-15-2017 Emergency department no information no name (no estela ne) no organization name patient visit (no phone) 09-08-2016 Emergency department no information no name (no estela ne) no organization name - patient visit (no phone) 09-08-2016 09-22-2014 Emergency department no information no name (no estela ne) no organization name - patient visit (no phone) 09-23-2014 01-04-2017 Evaluation and no information no name (no phone) n o organization name - management of (no phone) 01-06-2017 inpatient 09-21-2016 Evaluation and no information no name (no phone) n o organization name - management of (no phone) 09-24-2016 inpatient 09-21-2016 Evaluation and no information no name (no phone) n o organization name - management of (no phone) 09-24-2016 inpatient 09-18-2016 Evaluation and no information no name (no phone) n o organization name - management of (no phone) 09-21-2016 inpatient 02-05-2018 Patient encounter no information no name (no phone) no organization name (no phone) 12-02-2017 Patient encounter no information no name (no phone) no organization name (no phone) NEGATED Patient encounter no information no name (no phone) no organization name 11-08-2017 (no phone) 09-29-2017 Patient encounter no information no name (no phone) no organization name (no phone) 09-06-2017 Patient encounter no information no name (no phone) no organization name (no phone) 08-26-2017 Patient encounter no information no name (no phone) no organization name (no phone) 07-18-2017 Patient encounter no information no name (no phone) no organization name (no phone) 07-04-2017 Patient encounter no information no name (no phone) no organization name (no phone) 09-18-2016 Patient encounter no information no name (no phone) no organization name - (no phone) 09-21-2016 Patient encounter no information no name (no phone) no organ ization name (no phone) 10-19-2019 Patient encounter no information (no phone) [facility] procedure [facility] (no phone) 10-02-2019 Patient encounter no information (no phone) [facility] procedure [facility] (no phone) 08-06-2019 Patient encounter no information no name (no phone) no organization name procedure (no phone) 04-16-2019 Patient encounter no information no name (no phone) no organization name procedure (no phone) 04-10-2019 Patient encounter no information no name (no phone) no organization name procedure (no phone) 04-10-2019 Patient encounter no information no name (no phone) no organization name procedure (no phone) 04-05-2019 Patient encounter no information no name (no phone) no organization name procedure (no phone) 03-25-2019 Patient encounter no information no name (no phone) no organization name procedure (no phone) 03-24-2019 Patient encounter no information EDWARDO lopez no organization name procedure (no phone) 03-24-2019 Patient encounter no information no name (no phone) no organization name procedure (no phone) 03-16-2019 Patient encounter no information no name (no phone) no organization name procedure (no phone) 10-27-2018 Patient encounter no information no name (no phone) no organization name procedure (no phone) 09-11-2018 Patient encounter no information no name (no phone) no organization name procedure (no phone) 08-06-2018 Patient encounter no information no name (no phone) no organization name procedure (no phone) 07-18-2017 Patient encounter no information no name (no phone) no organization name procedure (no phone) 07-04-2017 Patient encounter no information no name (no phone) no organization name procedure (no phone) 03-14-2017 Patient encounter no information no name (no phone) no organization name procedure (no phone) 01-15-2017 Patient encounter no information no name (no phone) no organization name - procedure (no phone) 01-18-2017 01-04-2017 Patient encounter no information no name (no phone) no organization name - procedure (no phone) 01-06-2017 12-31-2016 Patient encounter no information no name (no phone) no organization name - procedure (no phone) 12-31-2016 11-04-2016 Patient encounter no information no name (no phone) no organization name procedure (no phone) 11-04-2016 Patient encounter no information no name (no phone) no organization name procedure (no phone) 11-02-2016 Patient encounter no information no name (no phone) no organization name procedure (no phone) 10-22-2016 Patient encounter no information no name (no phone) no organization name procedure (no phone) 10-22-2016 Patient encounter no information no name (no phone) no organization name procedure (no phone) 09-21-2016 Patient encounter no information no name (no phone) no organization name - procedure (no phone) 09-24-2016 09-08-2016 Patient encounter no information no name (no phone) no organization name procedure (no phone) 03-06-2016 Patient encounter no information no name (no phone) no organization name procedure (no phone) 03-06-2016 Patient encounter no information no name (no phone) no organization name procedure (no phone) 09-02-2015 Patient encounter no information no name (no phone) no organization name procedure (no phone) 09-02-2015 Patient encounter no information no name (no phone) no organization name procedure (no phone) 08-31-2015 Patient encounter no information no name (no phone) no organization name procedure (no phone) 08-30-2015 Patient encounter no information no name (no phone) no organization name procedure (no phone) 08-29-2015 Patient encounter no information no name (no phone) no organization name procedure (no phone) 08-27-2015 Patient encounter no information no name (no phone) no organization name procedure (no phone) 08-27-2015 Patient encounter no information no name (no phone) no organization name procedure (no phone) 11-08-2017 PPPS, initial visit no information no name (no phon e) no organization name (no phone) 06-09-2018 Telephone encounter Mixed hyperlipidemia EDWARDO ROSSI (no [facility] - phone) (no phone) 06-09-2018 - 06-09-2018 no information Encounter for general no name (no phone) no o rganization name adult medical (no phone) examination without abnormal findings no information Encounter for no name (no phone) no organiza tion name preprocedural (no phone) laboratory examination Medical Equipment Equipment Code (if Equipment Original Equipment Identifier P rocedure Code (if Dates provided) Text (if provided) (if provided) provided) no information Test blood glucose no information (no no informa tion 03-15-2017 named assigning authority) no information USE ONE STRIP TO no information (no no informati on no information CHECK GLUCOSE named assigning authority) no information USE WITH INSULIN no information (no no informati on no information SUBCUTANEOUSLY 4 named assigning TIMES DAILY authority) no information 1 lancet no information (no no information n o information named assigning authority) Payers Normalized Payer Value Medicare [id number] ([id number]) Summary Purpose eClinicalWorks Submission History of Past Illness Name Date of Onset Comme nts Paraplegia Diabetes Pressure ulcer, unspecified stage Bilateral Ovarian cyst Jun 03 2014 11:26AM Abnormal Uterine Bleeding Jun 03 2014 11:26AM Pelvic Pain Jun 03 2014 11:26AM Abnormal Uterine Bleeding Jun 08 201 4 1:40PM Chronic Cholecystitis Mar 08 2015 2:24PM Biliary Dyskinesia Mar 08 2015 2:24PM Paraplegia Mar 08 2015 2:24PM Diabetes Mar 08 2015 2:24PM Postoperative Follow-up: Cholecystectomy Apr 08 2015 9:59AM Perirectal abscess Oct 19 2015 12:29PM Name Date of Onset Comme nts Paraplegia Diabetes Pressure ulcer, unspecified stage Bilateral Ovarian cyst Jun 03 2014 11:26AM Abnormal Uterine Bleeding Jun 03 2014 11:26AM Pelvic Pain Jun 03 2014 11:26AM Abnormal Uterine Bleeding Jun 08 201 4 1:40PM Chronic Cholecystitis Mar 08 2015 2:24PM Biliary Dyskinesia Mar 08 2015 2:24PM Paraplegia Mar 08 2015 2:24PM Diabetes Mar 08 2015 2:24PM Postoperative Follow-up: Cholecystectomy Apr 08 2015 9:59AM Name Date of Onset Comme nts Paraplegia Diabetes Pressure ulcer, unspecified stage Bilateral Ovarian cyst Jun 03 2014 11:26AM Abnormal Uterine Bleeding Jun 03 2014 11:26AM Pelvic Pain Jun 03 2014 11:26AM Abnormal Uterine Bleeding Jun 08 201 4 1:40PM Chronic Cholecystitis Mar 08 2015 2:24PM Biliary Dyskinesia Mar 08 2015 2:24PM Paraplegia Mar 08 2015 2:24PM Diabetes Mar 08 2015 2:24PM Discharge Instructions No hospital discharge instruction information available. You were admitted to [facility] on 08/14/2015 with a principal diagnosis of Non-pressure chronic ulcer of back with unspecified severity. You were discharged from [facility] on 08/14/2015. Should you have any questions prior to discharge, please contact a member of your healthcare team. If you have left the hospital and have any questions, please contact your primary care physician. You were admitted to [facility] on 04/28/2014. You were discharged from [facility] on 04/28/2014. Should you have any questions prior to discharge, please contact a member of your healthcare team. If you have left the hospital and have any questions, please contact your primary care physician. Advance Directives Directive Response Recor ded Date/Time Advance Directives Yes 0 07/29/14 5:30pm Resuscitation Status Full Code 07/29/14 5:30pm Directive Response Recor ded Date/Time Advance Directives Yes 0 04/02/14 7:06pm Resuscitation Status Full Code 04/02/14 7:06pm Directive Response Recor ded Date/Time Advance Directives No 4:58pm Resuscitation Status Full Code 11/09/14 4:58pm Directive Response Recor ded Date/Time Advance Directives No 10:01pm Resuscitation Status Full Code 09/22/14 10:01pm Directive Response Recor ded Date/Time Advance Directives No 9:00pm Health Care Power of Steam Clean Machine Operator No 01/15/17 9:00pm Organ Donor No 01/15/17 9:00pm Resuscitation Status Full Code 01/15/17 9:00pm Directive Response Recor ded Date/Time Advance Directives No 2:31pm Health Care Power of Steam Clean Machine Operator No 09/29/17 2:31pm Organ Donor No 09/29/17 2:31pm Resuscitation Status Full Code 09/29/17 2:31pm Directive Response Recor ded Date/Time Advance Directives No 6:48pm Health Care Power of Steam Clean Machine Operator No 04/05/19 6:48pm Organ Donor No 04/05/19 6:48pm Resuscitation Status Full Code 04/05/19 6:48pm Chief Complaint and Reason for Visit Chief Complaint Laceration Reason for Visit Laceration of right lower leg Additional Source Comments This clinical document has been generated using [employer] software that has been certified by the Office of the National Coordinator for Health Information Technology (ONC 15.99.04.3023.[id number]) and the National Committee for Sports Nutritionist (NCQA, as an eMeasure certified technology). FOR RECORDS PERTAINING TO PATIENTS WHO ARE OR HAVE BEEN ENROLLED IN A CHEMICAL D EPENDENCY/SUBSTANCE ABUSE PROGRAM, SOME INFORMATION MAY BE OMITTED. This clinica l summary was aggregated from multiple sources. Caution should be exercised in using it in the provision of clinical care. This summary normalizes information from multiple sources, and as a consequence, information in this document may ma terially change the coding, format and clinical context of patient data. In yuliana tion, data may be omitted in some cases. CLINICAL DECISIONS SHOULD BE BASED ON T HE PRIMARY CLINICAL RECORDS. [employer] [facility]. provides no warranty or guara ntee of the accuracy or completeness of information in this document.The followi information is based on time limited clinical information UNRECOGNIZED CONTENT PROVIDED BELOW FOR UNRECOGNIZED SECTION MEDICAL (GENERAL) HISTORY Type Description Date Medical History type II diabetes Medical History anemia Surgical History Kindey stone removal- lef t 2015 Surgical History Right kindey removal Surgical History Back Surgical History Bladder repair Surgical History 04/09/1990 Surgical History 08/01/1993 Surgical History Colostomy Bag 12/2016 Hospitalization History UTI Hospitalization History [facility] 09/18/16 Hospitalization History Colostomy 12/2016 UNRECOGNIZED CONTENT PROVIDED BELOW FOR UNRECOGNIZED SECTION REASON FOR VISIT Requests return call/UTI symptoms, PT reports the last 4 days she has felt tired and her cath bag has been leaking -David ROCKWELL Possible UTI x3-4 days David ROCKWELL , did UA/ MIcro/ A1C in visit David rockwell , some pain but no burning David Rockwell
--- OUTSIDE RECORDS SUMMARY | 2019-11-12 16:55 | XMS REPORT | Continuity of Care Document ---
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 mass ratio 14 NRG Serum or plasma creatinine measurement w ith calculation of estimated glomerular filtration rate > NRG Serum or plasma glucose measurement (mass/volume) 295 mg/dL 70-105 Serum or plasma calcium measurement (mass/volume) 8.4 mg/dL 8.5-10.1 Capillary blood glucose measurement by g lucometer (mass/volume) - 09/19/16 10:02 Capillary blood glucose measurement by glucometer (mas s/volume) 306 mg/dL 70-110 C DIFFICILE AG + TOXIN A/B. - 09/19/16 1 0:20 RESULTS NEGATIVE FOR ANTIGEN AND TOXIN A/B NRG Capillary blood glucose measurement by g lucometer (mass/volume) - 09/19/16 16:52 Capillary blood glucose measurement by glucometer (mas s/volume) 244 mg/dL 70-110 Capillary blood glucose measurement by g lucometer (mass/volume) - 09/19/16 20:22 Capillary blood glucose measurement by glucometer (mas s/volume) 290 mg/dL 70-110 Capillary blood glucose measurement by g lucometer (mass/volume) - 09/20/16 05:53 Capillary blood glucose measurement by glucometer (mas s/volume) 112 mg/dL 70-110 Capillary blood glucose measurement by g lucometer (mass/volume) - 09/20/16 11:01 Capillary blood glucose measurement by glucometer (mas s/volume) 198 mg/dL 70-110 Capillary blood glucose measurement by g lucometer (mass/volume) - 09/20/16 16:11 Capillary blood glucose measurement by glucometer (mas s/volume) 278 mg/dL 70-110 Capillary blood glucose measurement by g lucometer (mass/volume) - 09/20/16 20:19 Capillary blood glucose measurement by glucometer (mas s/volume) 257 mg/dL 70-110 Complete blood count (CBC) with automate d white blood cell (WBC) differential - 09/21/16 04:20 Blood leukocytes automated count (number/volume) 9.3 10*3/uL 4.3-11.0 Blood erythrocytes automated count (number/volume) 3.61 10*6/uL 4.35-5.85 Venous blood hemoglobin measurement (mass/volume) 9.2 g/dL 11.5-16.0 Blood hematocrit (volume fraction) 30 % 35-52 Automated erythrocyte mean corpuscular volume 82 [ foz_us] 80-99 Automated erythrocyte mean corpuscular h emoglobin (mass per erythrocyte) 26 pg 25-34 Automated erythrocyte mean corpuscular h emoglobin concentration measurement (mass/volume) 31 g/dL 32-36 Automated erythrocyte distribution width ratio 16. 4 % 10.0- 14.5 Automated blood platelet count (count/volume) 308 10*3/uL 130-400 Automated blood platelet mean volume measurement 11.0 [foz_us] 7.4-10.4 Automated blood neutrophils/100 leukocytes 62 % 42-75 Automated blood lymphocytes/100 leukocytes 29 % 12-44 Blood monocytes/100 leukocytes 6 % 0-12 Automated blood eosinophils/100 leukocytes 2 % 0-10 Automated blood basophils/100 leukocytes 1 % 0-10 Blood neutrophils automated count (number/volume) 5.7 10*3 1.8-7.8 Blood lymphocytes automated count (number/volume) 2.7 10*3 1.0-4.0 Blood monocytes automated count (number/volume) 0. 6 10*3 0.0-1.0 Automated eosinophil count 0.2 10*3/uL 0 .0-0.3 Automated blood basophil count (count/volume) 0.1 10*3/uL 0.0-0.1 Comprehensive metabolic panel - 09/21/16 04:20 Serum or plasma sodium measurement (moles/volume) 138 mmol/L 135-145 Serum or plasma potassium measurement (moles/volume) 3.7 mmol/L 3.6-5.0 Serum or plasma chloride measurement (moles/volume) 114 mmol/L 98-107 Carbon dioxide 14 mmol/L 21-32 Serum or plasma anion gap determination (moles/volume) 10 mmol/L 5-14 Serum or plasma urea nitrogen measurement (mass/volume ) 14 mg/dL 7-18 Serum or plasma creatinine measurement (mass/volume) 0.82 mg/dL 0.60-1.30 Serum or plasma urea nitrogen/creatinine mass ratio 17 NRG Serum or plasma creatinine measurement w ith calculation of estimated glomerular filtration rate > NRG Serum or plasma glucose measurement (mass/volume) 235 mg/dL 70-105 Serum or plasma calcium measurement (mass/volume) 8.0 mg/dL 8.5-10.1 Serum or plasma total bilirubin measurement (mass/volu me) 0.1 mg/dL 0.1-1.0 Serum or plasma alkaline phosphatase brittany surement (enzymatic activity/volume) 61 U/L 40-136 Serum or plasma aspartate aminotransfera se measurement (enzymatic activity/volume) 42 U/L 5-34 Serum or plasma alanine aminotransferase measurement (enzymatic activity/volume) 27 U/L 0-55 Serum or plasma protein measurement (mass/volume) 6.3 g/dL 6.4-8.2 Serum or plasma albumin measurement (mass/volume) 2.8 g/dL 3.2-4.5 Capillary blood glucose measurement by g lucometer (mass/volume) - 09/21/16 11:14 Capillary blood glucose measurement by glucometer (mas s/volume) 312 mg/dL 70-110 Capillary blood glucose measurement by g lucometer (mass/volume) - 09/21/16 15:44 Capillary blood glucose measurement by glucometer (mas s/volume) 314 mg/dL 70-110 Capillary blood glucose measurement by g lucometer (mass/volume) - 09/21/16 21:10 Capillary blood glucose measurement by glucometer (mas s/volume) 272 mg/dL 70-110 Capillary blood glucose measurement by g lucometer (mass/volume) - 09/22/16 05:40 Capillary blood glucose measurement by glucometer (mas s/volume) 131 mg/dL 70-110 Capillary blood glucose measurement by g lucometer (mass/volume) - 09/22/16 11:11 Capillary blood glucose measurement by glucometer (mas s/volume) 270 mg/dL 70-110 Capillary blood glucose measurement by g lucometer (mass/volume) - 09/22/16 15:40 Capillary blood glucose measurement by glucometer (mas s/volume) 264 mg/dL 70-110 Capillary blood glucose measurement by g lucometer (mass/volume) - 09/22/16 20:56 Capillary blood glucose measurement by glucometer (mas s/volume) 230 mg/dL 70-110 Capillary blood glucose measurement by g lucometer (mass/volume) - 09/23/16 05:54 Capillary blood glucose measurement by glucometer (mas s/volume) 143 mg/dL 70-110 Capillary blood glucose measurement by g lucometer (mass/volume) - 09/23/16 10:50 Capillary blood glucose measurement by glucometer (mas s/volume) 167 mg/dL 70-110 Capillary blood glucose measurement by g lucometer (mass/volume) - 09/23/16 16:12 Capillary blood glucose measurement by glucometer (mas s/volume) 287 mg/dL 70-110 Capillary blood glucose measurement by g lucometer (mass/volume) - 09/23/16 21:15 Capillary blood glucose measurement by glucometer (mas s/volume) 313 mg/dL 70-110 Capillary blood glucose measurement by g lucometer (mass/volume) - 09/24/16 10:37 Capillary blood glucose measurement by glucometer (mas s/volume) 198 mg/dL 70-110 Complete urinalysis with reflex to cultu re - 10/22/16 10:41 Urine color determination YELLOW NRG Urine clarity determination CLEAR NR G Urine pH measurement by test strip 6 5-9 Specific gravity of urine by test strip 1.015 1.016-1.022 Urine protein assay by test strip, semi-quantitative 2+ NEGATIVE Urine glucose detection by automated test strip 3+ NEGATIVE Erythrocytes detection in urine sediment by light micr oscopy 2+ NEGATIVE Urine ketones detection by automated test strip NE GATIVE NEGATIVE Urine nitrite detection by test strip POSITIVE NEGATIVE Urine total bilirubin detection by test strip NEGA TIVE NEGATIVE Urine urobilinogen measurement by automated test strip (mass/volume) NORMAL NORMAL Urine leukocyte esterase detection by dipstick 3+ NEGATIVE Automated urine sediment erythrocyte cou nt by microscopy (number/high power field) [HPF] NRG Automated urine sediment leukocyte count by microscopy (number/high power field) TNTC NRG Bacteria detection in urine sediment by light microsco py LARGE NRG Squamous epithelial cells detection in u rine sediment by light microscopy NONE NRG Crystals detection in urine sediment by light microsco py NONE NRG Casts detection in urine sediment by light microscopy NONE NRG Mucus detection in urine sediment by light microscopy NEGATIVE NRG Complete urinalysis with reflex to culture YES NRG Bacterial urine culture - 10/22/16 10:41 Bacterial urine culture FOOTNOTE NRG Whole blood basic metabolic panel - 02/11 15:25 Serum or plasma sodium measurement (moles/volume) 138 mmol/L 135-145 Serum or plasma potassium measurement (moles/volume) 4.0 mmol/L 3.6-5.0 Serum or plasma chloride measurement (moles/volume) 108 mmol/L 98-107 Carbon dioxide 18 mmol/L 21-32 Serum or plasma anion gap determination (moles/volume) 12 mmol/L 5-14 Serum or plasma urea nitrogen measurement (mass/volume ) 17 mg/dL 7-18 Serum or plasma creatinine measurement (mass/volume) 0.93 mg/dL 0.60-1.30 Serum or plasma urea nitrogen/creatinine mass ratio 18 NRG Serum or plasma creatinine measurement w ith calculation of estimated glomerular filtration rate > NRG Serum or plasma glucose measurement (mass/volume) 278 mg/dL 70-105 Serum or plasma calcium measurement (mass/volume) 9.0 mg/dL 8.5-10.1 Vancomycin trough - 11/04/16 14:00 Vancomycin trough < ug/mL 10.0-20.0 Methicillin resistant Staphylococcus aur eus (MRSA) screening culture - 12/31/16 12:35 Methicillin resistant Staphylococcus aureus (MRSA) scr eening culture NEG NRG Complete blood count (CBC) with automate d white blood cell (WBC) differential - 12/31/16 12:40 Blood leukocytes automated count (number/volume) 10.0 10*3/uL 4.3-11.0 Blood erythrocytes automated count (number/volume) 4.10 10*6/uL 4.35-5.85 Venous blood hemoglobin measurement (mass/volume) 10.3 g/dL 11.5-16.0 Blood hematocrit (volume fraction) 33 % 35-52 Automated erythrocyte mean corpuscular volume 81 [ foz_us] 80-99 Automated erythrocyte mean corpuscular h emoglobin (mass per erythrocyte) 25 pg 25-34 Automated erythrocyte mean corpuscular h emoglobin concentration measurement (mass/volume) 31 g/dL 32-36 Automated erythrocyte distribution width ratio 17. 2 % 10.0- 14.5 Automated blood platelet count (count/volume) 335 10*3/uL 130-400 Automated blood platelet mean volume measurement 10.6 [foz_us] 7.4-10.4 Automated blood neutrophils/100 leukocytes 67 % 42-75 Automated blood lymphocytes/100 leukocytes 27 % 12-44 Blood monocytes/100 leukocytes 4 % 0-12 Automated blood eosinophils/100 leukocytes 2 % 0-10 Automated blood basophils/100 leukocytes 1 % 0-10 Blood neutrophils automated count (number/volume) 6.7 10*3 1.8-7.8 Blood lymphocytes automated count (number/volume) 2.7 10*3 1.0-4.0 Blood monocytes automated count (number/volume) 0. 4 10*3 0.0-1.0 Automated eosinophil count 0.2 10*3/uL 0 .0-0.3 Automated blood basophil count (count/volume) 0.1 10*3/uL 0.0-0.1 Whole blood basic metabolic panel - 12/12 12:40 Serum or plasma sodium measurement (moles/volume) 139 mmol/L 135-145 Serum or plasma potassium measurement (moles/volume) 3.9 mmol/L 3.6-5.0 Serum or plasma chloride measurement (moles/volume) 111 mmol/L 98-107 Carbon dioxide 18 mmol/L 21-32 Serum or plasma anion gap determination (moles/volume) 10 mmol/L 5-14 Serum or plasma urea nitrogen measurement (mass/volume ) 10 mg/dL 7-18 Serum or plasma creatinine measurement (mass/volume) 0.83 mg/dL 0.60-1.30 Serum or plasma urea nitrogen/creatinine mass ratio 12 NRG Serum or plasma creatinine measurement w ith calculation of estimated glomerular filtration rate > NRG Serum or plasma glucose measurement (mass/volume) 137 mg/dL 70-105 Serum or plasma calcium measurement (mass/volume) 9.0 mg/dL 8.5-10.1 Blood type T Indirect antibody screen pa serena - 12/31/16 12:40 ABO+Rh group AP NRG Blood group antibody screen NEGATIVE NR G Capillary blood glucose measurement by g lucometer (mass/volume) - 01/04/17 07:28 Capillary blood glucose measurement by glucometer (mas s/volume) 81 mg/dL 70-110 Serum or plasma choriogonadotropin (preg mae test) detection - 01/04/17 07:44 Serum or plasma choriogonadotropin ( test) de tection NEGATIVE NEGATIVE Blood type T Indirect antibody screen pa serena - 01/04/17 07:44 ABO+Rh group AP NRG Transfusion band number [id number] NRG Blood group antibody screen NEGATIVE NR G Capillary blood glucose measurement by g lucometer (mass/volume) - 01/04/17 13:22 Capillary blood glucose measurement by glucometer (mas s/volume) 153 mg/dL 70-110 Capillary blood glucose measurement by g lucometer (mass/volume) - 01/04/17 22:03 Capillary blood glucose measurement by glucometer (mas s/volume) 137 mg/dL 70-110 Complete blood count (CBC) with automate d white blood cell (WBC) differential - 01/05/17 04:45 Blood leukocytes automated count (number/volume) 11.9 10*3/uL 4.3-11.0 Blood erythrocytes automated count (number/volume) 3.42 10*6/uL 4.35-5.85 Venous blood hemoglobin measurement (mass/volume) 8.4 g/dL 11.5-16.0 Blood hematocrit (volume fraction) 28 % 35-52 Automated erythrocyte mean corpuscular volume 82 [ foz_us] 80-99 Automated erythrocyte mean corpuscular h emoglobin (mass per erythrocyte) 25 pg 25-34 Automated erythrocyte mean corpuscular h emoglobin concentration measurement (mass/volume) 30 g/dL 32-36 Automated erythrocyte distribution width ratio 17. 4 % 10.0- 14.5 Automated blood platelet count (count/volume) 244 10*3/uL 130-400 Automated blood platelet mean volume measurement 11.9 [foz_us] 7.4-10.4 Automated blood neutrophils/100 leukocytes 74 % 42-75 Automated blood lymphocytes/100 leukocytes 18 % 12-44 Blood monocytes/100 leukocytes 7 % 0-12 Automated blood eosinophils/100 leukocytes 1 % 0-10 Automated blood basophils/100 leukocytes 0 % 0-10 Blood neutrophils automated count (number/volume) 8.8 10*3 1.8-7.8 Blood lymphocytes automated count (number/volume) 2.1 10*3 1.0-4.0 Blood monocytes automated count (number/volume) 0. 8 10*3 0.0-1.0 Automated eosinophil count 0.1 10*3/uL 0 .0-0.3 Automated blood basophil count (count/volume) 0.0 10*3/uL 0.0-0.1 Comprehensive metabolic panel - 01/05/17 04:45 Serum or plasma sodium measurement (moles/volume) 139 mmol/L 135-145 Serum or plasma potassium measurement (moles/volume) 3.7 mmol/L 3.6-5.0 Serum or plasma chloride measurement (moles/volume) 112 mmol/L 98-107 Carbon dioxide 17 mmol/L 21-32 Serum or plasma anion gap determination (moles/volume) 10 mmol/L 5-14 Serum or plasma urea nitrogen measurement (mass/volume ) 5 mg/dL 7-18 Serum or plasma creatinine measurement (mass/volume) 0.75 mg/dL 0.60-1.30 Serum or plasma urea nitrogen/creatinine mass ratio 7 NRG Serum or plasma creatinine measurement w ith calculation of estimated glomerular filtration rate > NRG Serum or plasma glucose measurement (mass/volume) 100 mg/dL 70-105 Serum or plasma calcium measurement (mass/volume) 7.9 mg/dL 8.5-10.1 Serum or plasma total bilirubin measurement (mass/volu me) 0.3 mg/dL 0.1-1.0 Serum or plasma alkaline phosphatase brittany surement (enzymatic activity/volume) 62 U/L 40-136 Serum or plasma aspartate aminotransfera se measurement (enzymatic activity/volume) 18 U/L 5-34 Serum or plasma alanine aminotransferase measurement (enzymatic activity/volume) 18 U/L 0-55 Serum or plasma protein measurement (mass/volume) 5.6 g/dL 6.4-8.2 Serum or plasma albumin measurement (mass/volume) 2.7 g/dL 3.2-4.5 Capillary blood glucose measurement by g lucometer (mass/volume) - 01/05/17 11:05 Capillary blood glucose measurement by glucometer (mas s/volume) 109 mg/dL 70-110 Capillary blood glucose measurement by g lucometer (mass/volume) - 01/05/17 16:33 Capillary blood glucose measurement by glucometer (mas s/volume) 101 mg/dL 70-110 Capillary blood glucose measurement by g lucometer (mass/volume) - 01/05/17 21:19 Capillary blood glucose measurement by glucometer (mas s/volume) 161 mg/dL 70-110 Capillary blood glucose measurement by g lucometer (mass/volume) - 01/06/17 05:49 Capillary blood glucose measurement by glucometer (mas s/volume) 137 mg/dL 70-110 Capillary blood glucose measurement by g lucometer (mass/volume) - 01/06/17 11:27 Capillary blood glucose measurement by glucometer (mas s/volume) 162 mg/dL 70-110 Complete blood count (CBC) with automate d white blood cell (WBC) differential - 01/15/17 18:12 Blood leukocytes automated count (number/volume) 23.4 10*3/uL 4.3-11.0 Blood erythrocytes automated count (number/volume) 4.37 10*6/uL 4.35-5.85 Venous blood hemoglobin measurement (mass/volume) 10.8 g/dL 11.5-16.0 Blood hematocrit (volume fraction) 36 % 35-52 Automated erythrocyte mean corpuscular volume 81 [ foz_us] 80-99 Automated erythrocyte mean corpuscular h emoglobin (mass per erythrocyte) 25 pg 25-34 Automated erythrocyte mean corpuscular h emoglobin concentration measurement (mass/volume) 30 g/dL 32-36 Automated erythrocyte distribution width ratio 16. 5 % 10.0- 14.5 Automated blood platelet count (count/volume) 439 10*3/uL 130-400 Automated blood platelet mean volume measurement 10.6 [foz_us] 7.4-10.4 Automated blood neutrophils/100 leukocytes 80 % 42-75 Automated blood lymphocytes/100 leukocytes 15 % 12-44 Blood monocytes/100 leukocytes 4 % 0-12 Automated blood eosinophils/100 leukocytes 1 % 0-10 Automated blood basophils/100 leukocytes 0 % 0-10 Blood neutrophils automated count (number/volume) 18.6 10*3 1.8-7.8 Blood lymphocytes automated count (number/volume) 3.6 10*3 1.0-4.0 Blood monocytes automated count (number/volume) 0. 9 10*3 0.0-1.0 Automated eosinophil count 0.3 10*3/uL 0 .0-0.3 Automated blood basophil count (count/volume) 0.0 10*3/uL 0.0-0.1 Blood manual differential performed dete ction - 01/15/17 18:12 Blood monocytes/100 leukocytes 3 % NRG Manual blood segmented neutrophils/100 leukocytes 67 % NRG Blood band neutrophils/100 leukocytes 7 % NRG Manual blood lymphocytes/100 leukocytes 21 % NRG Manual eosinophils/100 leukocytes in nose 2 % NRG Manual blood basophils/100 leukocytes 0 % NRG Blood hypochromia detection by light microscopy IGHT NRG Blood lactic acid measurement (moles/vol ume) - 01/15/17 18:20 Blood lactic acid measurement (moles/volume) 2.93 mmol/L 0.50-2.00 Comprehensive metabolic panel - 01/15/17 18:20 Serum or plasma sodium measurement (moles/volume) 136 mmol/L 135-145 Serum or plasma potassium measurement (moles/volume) 3.9 mmol/L 3.6-5.0 Serum or plasma chloride measurement (moles/volume) 103 mmol/L 98-107 Carbon dioxide 18 mmol/L 21-32 Serum or plasma anion gap determination (moles/volume) 15 mmol/L 5-14 Serum or plasma urea nitrogen measurement (mass/volume ) 9 mg/dL 7-18 Serum or plasma creatinine measurement (mass/volume) 0.82 mg/dL 0.60-1.30 Serum or plasma urea nitrogen/creatinine mass ratio 11 0-20 Serum or plasma creatinine measurement w ith calculation of estimated glomerular filtration rate > NRG Serum or plasma glucose measurement (mass/volume) 171 mg/dL 70-105 Serum or plasma calcium measurement (mass/volume) 9.1 mg/dL 8.5-10.1 Serum or plasma total bilirubin measurement (mass/volu me) 0.2 mg/dL 0.1-1.0 Serum or plasma alkaline phosphatase brittany surement (enzymatic activity/volume) 79 U/L 40-136 Serum or plasma aspartate aminotransfera se measurement (enzymatic activity/volume) 21 U/L 5-34 Serum or plasma alanine aminotransferase measurement (enzymatic activity/volume) 16 U/L 0-55 Serum or plasma protein measurement (mass/volume) 7.5 g/dL 6.4-8.2 Serum or plasma albumin measurement (mass/volume) 3.3 g/dL 3.2-4.5 Bacterial blood culture - 01/15/17 18:20 Bacterial blood culture NG NRG Bacterial blood culture - 01/15/17 18:39 Bacterial blood culture NG NRG Complete urinalysis with reflex to cultu re - 01/15/17 19:20 Urine color determination YELLOW NRG Urine clarity determination VERY CLOUDY NRG Urine pH measurement by test strip 6 5-9 Specific gravity of urine by test strip 1.020 1.016-1.022 Urine protein assay by test strip, semi-quantitative 3+ NEGATIVE Urine glucose detection by automated test strip NE GATIVE NEGATIVE Erythrocytes detection in urine sediment by light micr oscopy 4+ NEGATIVE Urine ketones detection by automated test strip NE GATIVE NEGATIVE Urine nitrite detection by test strip POSITIVE NEGATIVE Urine total bilirubin detection by test strip NEGA TIVE NEGATIVE Urine urobilinogen measurement by automated test strip (mass/volume) NORMAL NORMAL Urine leukocyte esterase detection by dipstick 3+ NEGATIVE Automated urine sediment erythrocyte cou nt by microscopy (number/high power field) [HPF] NRG Automated urine sediment leukocyte count by microscopy (number/high power field) TNTC NRG Bacteria detection in urine sediment by light microsco py LARGE NRG Crystals detection in urine sediment by light microsco py NONE NRG Casts detection in urine sediment by light microscopy NONE NRG Mucus detection in urine sediment by light microscopy NEGATIVE NRG Complete urinalysis with reflex to culture YES NRG Bacterial urine culture - 01/15/17 19:20 Bacterial urine culture [id number] NRG COLONY COUNT 10,000/ML - 100,000/ML NRG FTX;REPORTABLE SENSITIVITY REPORTED 01/17/17 7:25 NRG Bacterial susceptibility panel - 7 19:20 Gentamicin susceptibility test by minimum inhibitory c oncentration <= NRG Trimethoprim/sulfamethoxazole susceptibi lity test by minimum inhibitoryconcentration <= NRG Ampicillin susceptibility test by minimum inhibitory c oncentration >= NRG Tobramycin susceptibility test by minimum inhibitory c oncentration <= NRG Cefazolin susceptibility test by minimum inhibitory co ncentration <= NRG Ceftriaxone susceptibility test by minimum inhibitory concentration <= NRG Ampicillin/sulbactam susceptibility test by minimum inhibitory concentration 4 NRG Piperacillin/tazobactam susceptibility t est by minimum inhibitory concentration <= NRG Ciprofloxacin susceptibility test by minimum inhibitor y concentration <= NRG Meropenem susceptibility test by minimum inhibitory co ncentration <= NRG Nitrofurantoin susceptibility test by mi nimum inhibitory concentration 128 NRG Aztreonam susceptibility test by minimum inhibitory co ncentration <= NRG Extended spectrum beta lactamase (ESBL) producing bacteria susceptibility test by minimum inhibitory concentration - [facility] Bacterial susceptibility panel - 7 19:20 Gentamicin susceptibility test by minimum inhibitory c oncentration R NRG Vancomycin susceptibility test by minimum inhibitory c oncentration 1 NRG Levofloxacin susceptibility test by minimum inhibitory concentration >= NRG Tetracycline susceptibility test by minimum inhibitory concentration >= NRG Ampicillin susceptibility test by minimum inhibitory c oncentration <= NRG Ciprofloxacin susceptibility test by minimum inhibitor y concentration R NRG Nitrofurantoin susceptibility test by mi nimum inhibitory concentration <= NRG Linezolid susceptibility test by minimum inhibitory co ncentration 2 NRG Serum or plasma lactate measurement (mol es/volume) - 01/15/17 20:53 Serum or plasma lactate measurement (moles/volume) 2.01 mmol/L 0.50-2.00 Capillary blood glucose measurement by g lucometer (mass/volume) - 01/16/17 05:34 Capillary blood glucose measurement by glucometer (mas s/volume) 289 mg/dL 70-110 Complete blood count (CBC) with automate d white blood cell (WBC) differential - 01/16/17 05:38 Blood leukocytes automated count (number/volume) 24.5 10*3/uL 4.3-11.0 Blood erythrocytes automated count (number/volume) 4.10 10*6/uL 4.35-5.85 Venous blood hemoglobin measurement (mass/volume) 10.0 g/dL 11.5-16.0 Blood hematocrit (volume fraction) 34 % 35-52 Automated erythrocyte mean corpuscular volume 82 [ foz_us] 80-99 Automated erythrocyte mean corpuscular h emoglobin (mass per erythrocyte) 24 pg 25-34 Automated erythrocyte mean corpuscular h emoglobin concentration measurement (mass/volume) 30 g/dL 32-36 Automated erythrocyte distribution width ratio 16. 3 % 10.0- 14.5 Automated blood platelet count (count/volume) 487 10*3/uL 130-400 Automated blood platelet mean volume measurement 10.9 [foz_us] 7.4-10.4 Automated blood neutrophils/100 leukocytes 93 % 42-75 Automated blood lymphocytes/100 leukocytes 5 % 12-44 Blood monocytes/100 leukocytes 1 % 0-12 Automated blood eosinophils/100 leukocytes 2 % 0-10 Automated blood basophils/100 leukocytes 0 % 0-10 Blood neutrophils automated count (number/volume) 22.7 10*3 1.8-7.8 Blood lymphocytes automated count (number/volume) 1.2 10*3 1.0-4.0 Blood monocytes automated count (number/volume) 0. 2 10*3 0.0-1.0 Automated eosinophil count 0.4 10*3/uL 0 .0-0.3 Automated blood basophil count (count/volume) 0.0 10*3/uL 0.0-0.1 Whole blood basic metabolic panel - 12/28 08/14 05:38 Serum or plasma sodium measurement (moles/volume) 137 mmol/L 135-145 Serum or plasma potassium measurement (moles/volume) 4.4 mmol/L 3.6-5.0 Serum or plasma chloride measurement (moles/volume) 106 mmol/L 98-107 Carbon dioxide 16 mmol/L 21-32 Serum or plasma anion gap determination (moles/volume) 15 mmol/L 5-14 Serum or plasma urea nitrogen measurement (mass/volume ) 11 mg/dL 7-18 Serum or plasma creatinine measurement (mass/volume) 0.91 mg/dL 0.60-1.30 Serum or plasma urea nitrogen/creatinine mass ratio 12 0-20 Serum or plasma creatinine measurement w ith calculation of estimated glomerular filtration rate > NRG Serum or plasma glucose measurement (mass/volume) 308 mg/dL 70-105 Serum or plasma calcium measurement (mass/volume) 9.1 mg/dL 8.5-10.1 Hemoglobin A1c - 01/16/17 05:58 Hemoglobin A1c 4.5 % 4.5-6.2 Capillary blood glucose measurement by g lucometer (mass/volume) - 01/16/17 11:05 Capillary blood glucose measurement by glucometer (mas s/volume) 416 mg/dL 70-110 Capillary blood glucose measurement by g lucometer (mass/volume) - 01/16/17 16:14 Capillary blood glucose measurement by glucometer (mas s/volume) 350 mg/dL 70-110 Capillary blood glucose measurement by g lucometer (mass/volume) - 01/16/17 21:27 Capillary blood glucose measurement by glucometer (mas s/volume) 377 mg/dL 70-110 Capillary blood glucose measurement by g lucometer (mass/volume) - 01/17/17 05:24 Capillary blood glucose measurement by glucometer (mas s/volume) 260 mg/dL 70-110 Complete blood count (CBC) with automate d white blood cell (WBC) differential - 01/17/17 05:50 Blood leukocytes automated count (number/volume) 23.2 10*3/uL 4.3-11.0 Blood erythrocytes automated count (number/volume) 3.42 10*6/uL 4.35-5.85 Venous blood hemoglobin measurement (mass/volume) 8.3 g/dL 11.5-16.0 Blood hematocrit (volume fraction) 28 % 35-52 Automated erythrocyte mean corpuscular volume 83 [ foz_us] 80-99 Automated erythrocyte mean corpuscular h emoglobin (mass per erythrocyte) 24 pg 25-34 Automated erythrocyte mean corpuscular h emoglobin concentration measurement (mass/volume) 29 g/dL 32-36 Automated erythrocyte distribution width ratio 16. 1 % 10.0- 14.5 Automated blood platelet count (count/volume) 528 10*3/uL 130-400 Automated blood platelet mean volume measurement 10.7 [foz_us] 7.4-10.4 Automated blood neutrophils/100 leukocytes 89 % 42-75 Automated blood lymphocytes/100 leukocytes 9 % 12-44 Blood monocytes/100 leukocytes 2 % 0-12 Automated blood eosinophils/100 leukocytes 0 % 0-10 Automated blood basophils/100 leukocytes 0 % 0-10 Blood neutrophils automated count (number/volume) 20.7 10*3 1.8-7.8 Blood lymphocytes automated count (number/volume) 2.0 10*3 1.0-4.0 Blood monocytes automated count (number/volume) 0. 4 10*3 0.0-1.0 Automated eosinophil count 0.1 10*3/uL 0 .0-0.3 Automated blood basophil count (count/volume) 0.0 10*3/uL 0.0-0.1 Blood lactic acid measurement (moles/vol ume) - 01/17/17 05:50 Blood lactic acid measurement (moles/volume) 3.46 mmol/L 0.50-2.00 Comprehensive metabolic panel - 01/17/17 05:50 Serum or plasma sodium measurement (moles/volume) 140 mmol/L 135-145 Serum or plasma potassium measurement (moles/volume) 3.8 mmol/L 3.6-5.0 Serum or plasma chloride measurement (moles/volume) 110 mmol/L 98-107 Carbon dioxide 18 mmol/L 21-32 Serum or plasma anion gap determination (moles/volume) 12 mmol/L 5-14 Serum or plasma urea nitrogen measurement (mass/volume ) 13 mg/dL 7-18 Serum or plasma creatinine measurement (mass/volume) 0.86 mg/dL 0.60-1.30 Serum or plasma urea nitrogen/creatinine mass ratio 15 0-20 Serum or plasma creatinine measurement w ith calculation of estimated glomerular filtration rate > NRG Serum or plasma glucose measurement (mass/volume) 254 mg/dL 70-105 Serum or plasma calcium measurement (mass/volume) 8.9 mg/dL 8.5-10.1 Serum or plasma total bilirubin measurement (mass/volu me) 0.1 mg/dL 0.1-1.0 Serum or plasma alkaline phosphatase brittany surement (enzymatic activity/volume) 68 U/L 40-136 Serum or plasma aspartate aminotransfera se measurement (enzymatic activity/volume) 10 U/L 5-34 Serum or plasma alanine aminotransferase measurement (enzymatic activity/volume) 15 U/L 0-55 Serum or plasma protein measurement (mass/volume) 7.0 g/dL 6.4-8.2 Serum or plasma albumin measurement (mass/volume) 3.2 g/dL 3.2-4.5 Serum or plasma lactate measurement (mol es/volume) - 01/17/17 08:01 Serum or plasma lactate measurement (moles/volume) 3.45 mmol/L 0.50-2.00 Capillary blood glucose measurement by g lucometer (mass/volume) - 01/17/17 11:21 Capillary blood glucose measurement by glucometer (mas s/volume) 139 mg/dL 70-110 Capillary blood glucose measurement by g lucometer (mass/volume) - 01/17/17 16:18 Capillary blood glucose measurement by glucometer (mas s/volume) 78 mg/dL 70-110 C DIFFICILE AG + TOXIN A/B. - 01/17/17 1 6:20 RESULTS NEGATIVE FOR ANTIGEN AND TOXIN A/B NRG Capillary blood glucose measurement by g lucometer (mass/volume) - 01/17/17 20:46 Capillary blood glucose measurement by glucometer (mas s/volume) 105 mg/dL 70-110 Blood lactic acid measurement (moles/vol ume) - 01/18/17 05:15 Blood lactic acid measurement (moles/volume) 1.69 mmol/L 0.50-2.00 Whole blood basic metabolic panel - 12/28 10/12 05:15 Serum or plasma sodium measurement (moles/volume) 142 mmol/L 135-145 Serum or plasma potassium measurement (moles/volume) 4.5 mmol/L 3.6-5.0 Serum or plasma chloride measurement (moles/volume) 118 mmol/L 98-107 Carbon dioxide 12 mmol/L 21-32 Serum or plasma anion gap determination (moles/volume) 12 mmol/L 5-14 Serum or plasma urea nitrogen measurement (mass/volume ) 16 mg/dL 7-18 Serum or plasma creatinine measurement (mass/volume) 0.79 mg/dL 0.60-1.30 Serum or plasma urea nitrogen/creatinine mass ratio 20 0-20 Serum or plasma creatinine measurement w ith calculation of estimated glomerular filtration rate > NRG Serum or plasma glucose measurement (mass/volume) 76 mg/dL 70-105 Serum or plasma calcium measurement (mass/volume) 7.9 mg/dL 8.5-10.1 Capillary blood glucose measurement by g lucometer (mass/volume) - 01/18/17 05:21 Capillary blood glucose measurement by glucometer (mas s/volume) 70 mg/dL 70-110 Complete blood count (CBC) with automate d white blood cell (WBC) differential - 01/18/17 05:40 Blood leukocytes automated count (number/volume) 16.8 10*3/uL 4.3-11.0 Blood erythrocytes automated count (number/volume) 3.48 10*6/uL 4.35-5.85 Venous blood hemoglobin measurement (mass/volume) 8.6 g/dL 11.5-16.0 Blood hematocrit (volume fraction) 29 % 35-52 Automated erythrocyte mean corpuscular volume 83 [ foz_us] 80-99 Automated erythrocyte mean corpuscular h emoglobin (mass per erythrocyte) 25 pg 25-34 Automated erythrocyte mean corpuscular h emoglobin concentration measurement (mass/volume) 30 g/dL 32-36 Automated erythrocyte distribution width ratio 16. 6 % 10.0- 14.5 Automated blood platelet count (count/volume) 521 10*3/uL 130-400 Automated blood platelet mean volume measurement 10.4 [foz_us] 7.4-10.4 Automated blood neutrophils/100 leukocytes 63 % 42-75 Automated blood lymphocytes/100 leukocytes 29 % 12-44 Blood monocytes/100 leukocytes 3 % 0-12 Automated blood eosinophils/100 leukocytes 4 % 0-10 Automated blood basophils/100 leukocytes 0 % 0-10 Blood neutrophils automated count (number/volume) 10.6 10*3 1.8-7.8 Blood lymphocytes automated count (number/volume) 4.9 10*3 1.0-4.0 Blood monocytes automated count (number/volume) 0. 6 10*3 0.0-1.0 Automated eosinophil count 0.7 10*3/uL 0 .0-0.3 Automated blood basophil count (count/volume) 0.0 10*3/uL 0.0-0.1 Bacteria identification in isolate by an aerobe culture - 07/04/17 14:50 FREE TEXT EXTERNAL (TWO DIFFERNT COLONY TYPES) NRG QUANTITY OF GROWTH Moderate Growth NRG Bacteria identification in isolate by anaerobe culture [id number] NR Gram stain microscopy - 07/04/17 14:50 GRAM STAIN RESULT FEW WBC'S, NO BACTERIA OBSERVED NRG Bacteria identification in wound by cult ure - 07/04/17 14:50 Bacteria identification in wound by culture [id number] NR FREE TEXT EXTERNAL SENT TO REF.LAB FOR SENSITIVITY 07-08 NRG QUANTITY OF GROWTH Scant Growth NRG MRSA AGAR Screening test for MRSA is N EGATIVE (Final to follow) NR FREE TEXT ENTRY 2 (COAGULASE NEGATIVE STAPHYLOCOCC US) NR Bacterial susceptibility panel - 7 14:50 Oxacillin susceptibility test by minimum inhibitory co ncentration 0.5 NRG Gentamicin susceptibility test by minimum inhibitory c oncentration <= NRG Clindamycin susceptibility test by minimum inhibitory concentration <= NRG Erythromycin susceptibility test by minimum inhibitory concentration <= NRG Trimethoprim/sulfamethoxazole susceptibi lity test by minimum inhibitoryconcentration S NRG Vancomycin susceptibility test by minimum inhibitory c oncentration 1 NRG Levofloxacin susceptibility test by minimum inhibitory concentration 0.25 NRG Rifampin susceptibility test by minimum inhibitory con centration <= NRG Tetracycline susceptibility test by minimum inhibitory concentration <= NRG Bacterial susceptibility panel - 7 14:50 Oxacillin susceptibility test by minimum inhibitory co ncentration 1 NRG Gentamicin susceptibility test by minimum inhibitory c oncentration <= NRG Clindamycin susceptibility test by minimum inhibitory concentration I NRG Erythromycin susceptibility test by minimum inhibitory concentration 4 NRG Trimethoprim/sulfamethoxazole susceptibi lity test by minimum inhibitoryconcentration <= NRG Vancomycin susceptibility test by minimum inhibitory c oncentration <= NRG Levofloxacin susceptibility test by minimum inhibitory concentration <= NRG Rifampin susceptibility test by minimum inhibitory con centration <= NRG Tetracycline susceptibility test by minimum inhibitory concentration <= NRG Complete urinalysis with reflex to cultu re - 09/29/17 15:01 Urine color determination YELLOW NRG Urine clarity determination CLEAR NR G Urine pH measurement by test strip 6.5 5-9 Specific gravity of urine by test strip 1.010 1.016-1.022 Urine protein assay by test strip, semi-quantitative 2+ NEGATIVE Urine glucose detection by automated test strip NE GATIVE NEGATIVE Erythrocytes detection in urine sediment by light micr oscopy 5+ NEGATIVE Urine ketones detection by automated test strip NE GATIVE NEGATIVE Urine nitrite detection by test strip POSITIVE NEGATIVE Urine total bilirubin detection by test strip NEGA TIVE NEGATIVE Urine urobilinogen measurement by automated test strip (mass/volume) NORMAL NORMAL Urine leukocyte esterase detection by dipstick 3+ NEGATIVE Automated urine sediment erythrocyte cou nt by microscopy (number/high power field) [HPF] NRG Automated urine sediment leukocyte count by microscopy (number/high power field) TNTC NRG Bacteria detection in urine sediment by light microsco py FEW NRG Squamous epithelial cells detection in u rine sediment by light microscopy 2-5 NRG Crystals detection in urine sediment by light microsco py NONE NRG Casts detection in urine sediment by light microscopy NONE NRG Mucus detection in urine sediment by light microscopy NEGATIVE NRG Complete urinalysis with reflex to culture YES NRG Bacterial urine culture - 09/29/17 15:01 Bacterial urine culture [id number] NRG COLONY COUNT 10,000/ML - 100,000/ML NRG FTX;REPORTABLE SENSITIVITY REPORTED 09/30/17 17:00 NR Bacterial susceptibility panel - 8 15:01 Gentamicin susceptibility test by minimum inhibitory c oncentration <= NRG Trimethoprim/sulfamethoxazole susceptibi lity test by minimum inhibitoryconcentration S NRG Ampicillin susceptibility test by minimum inhibitory c oncentration >= NRG Tobramycin susceptibility test by minimum inhibitory c oncentration <= NRG Cefazolin susceptibility test by minimum inhibitory co ncentration <= NRG Ceftriaxone susceptibility test by minimum inhibitory concentration <= NRG Ampicillin/sulbactam susceptibility test by minimum inhibitory concentration S NRG Piperacillin/tazobactam susceptibility t est by minimum inhibitory concentration S NRG Ciprofloxacin susceptibility test by minimum inhibitor y concentration <= NRG Meropenem susceptibility test by minimum inhibitory co ncentration <= NRG Nitrofurantoin susceptibility test by mi nimum inhibitory concentration <= NRG Aztreonam susceptibility test by minimum inhibitory co ncentration <= NRG Extended spectrum beta lactamase (ESBL) producing bacteria susceptibility test by minimum inhibitory concentration - NRG Capillary blood glucose measurement by g lucometer (mass/volume) - 09/29/17 15:04 Capillary blood glucose measurement by glucometer (mas s/volume) 89 mg/dL 70-110 Complete blood count (CBC) with automate d white blood cell (WBC) differential - 09/29/17 15:17 Blood leukocytes automated count (number/volume) 11.7 10*3/uL 4.3-11.0 Blood erythrocytes automated count (number/volume) 3.96 10*6/uL 4.35-5.85 Venous blood hemoglobin measurement (mass/volume) 11.4 g/dL 11.5-16.0 Blood hematocrit (volume fraction) 35 % 35-52 Automated erythrocyte mean corpuscular volume 89 [ foz_us] 80-99 Automated erythrocyte mean corpuscular h emoglobin (mass per erythrocyte) 29 pg 25-34 Automated erythrocyte mean corpuscular h emoglobin concentration measurement (mass/volume) 33 g/dL 32-36 Automated erythrocyte distribution width ratio 14. 9 % 10.0- 14.5 Automated blood platelet count (count/volume) 380 10*3/uL 130-400 Automated blood platelet mean volume measurement 10.0 [foz_us] 7.4-10.4 Automated blood neutrophils/100 leukocytes 69 % 42-75 Automated blood lymphocytes/100 leukocytes 26 % 12-44 Blood monocytes/100 leukocytes 4 % 0-12 Automated blood eosinophils/100 leukocytes 1 % 0-10 Automated blood basophils/100 leukocytes 0 % 0-10 Blood neutrophils automated count (number/volume) 8.0 10*3 1.8-7.8 Blood lymphocytes automated count (number/volume) 3.1 10*3 1.0-4.0 Blood monocytes automated count (number/volume) 0. 5 10*3 0.0-1.0 Automated eosinophil count 0.1 10*3/uL 0 .0-0.3 Automated blood basophil count (count/volume) 0.0 10*3/uL 0.0-0.1 Comprehensive metabolic panel - 09/29/17 15:17 Serum or plasma sodium measurement (moles/volume) 140 mmol/L 135-145 Serum or plasma potassium measurement (moles/volume) 3.6 mmol/L 3.6-5.0 Serum or plasma chloride measurement (moles/volume) 112 mmol/L 98-107 Carbon dioxide 14 mmol/L 21-32 Serum or plasma anion gap determination (moles/volume) 14 mmol/L 5-14 Serum or plasma urea nitrogen measurement (mass/volume ) 14 mg/dL 7-18 Serum or plasma creatinine measurement (mass/volume) 0.95 mg/dL 0.60-1.30 Serum or plasma urea nitrogen/creatinine mass ratio 15 NRG Serum or plasma creatinine measurement w ith calculation of estimated glomerular filtration rate > NRG Serum or plasma glucose measurement (mass/volume) 95 mg/dL 70-105 Serum or plasma calcium measurement (mass/volume) 9.3 mg/dL 8.5-10.1 Serum or plasma total bilirubin measurement (mass/volu me) 0.2 mg/dL 0.1-1.0 Serum or plasma alkaline phosphatase brittany surement (enzymatic activity/volume) 95 U/L 40-136 Serum or plasma aspartate aminotransfera se measurement (enzymatic activity/volume) 40 U/L 5-34 Serum or plasma alanine aminotransferase measurement (enzymatic activity/volume) 41 U/L 0-55 Serum or plasma protein measurement (mass/volume) 8.6 g/dL 6.4-8.2 Serum or plasma albumin measurement (mass/volume) 4.2 g/dL 3.2-4.5 CULTURE, URINE - 12/02/17 15:00 CULTURE, URINE, ROUTINE SEE NOTE NRG CULTURE, URINE - 06/03/18 17:11 CULTURE, URINE, ROUTINE SEE NOTE NRG CULTURE, URINE - 09/11/18 15:40 CULTURE, URINE, ROUTINE SEE NOTE NRG CULTURE, URINE - 04/10/19 14:48 CULTURE, URINE, ROUTINE SEE NOTE NRG CBC - 08/06/19 16:34 WHITE BLOOD CELL COUNT 10.0 Thousand/uL 3.8-10.8 RED BLOOD CELL COUNT 4.19 Million/uL 3.8 0-5.10 HEMOGLOBIN 10.7 g/dL 11.7-15.5 HEMATOCRIT 34.5 % 35.0-45.0 MCV 82.3 fL 80.0-100.0 MCH 25.5 pg 27.0-33.0 MCHC 31.0 g/dL 32.0-36.0 RDW 16.4 % 11.0-15.0 PLATELET COUNT 346 Thousand/uL 140-400 MPV 11.0 fL 7.5-12.5 ABSOLUTE NEUTROPHILS 6310 cells/uL 1500- 7800 ABSOLUTE LYMPHOCYTES 2960 cells/uL 850-3 900 ABSOLUTE MONOCYTES 500 cells/uL 200-950 ABSOLUTE EOSINOPHILS 180 cells/uL 15-500 ABSOLUTE BASOPHILS 50 cells/uL 0-200 NEUTROPHILS 63.1 % NRG LYMPHOCYTES 29.6 % NRG MONOCYTES 5.0 % NRG EOSINOPHILS 1.8 % NRG BASOPHILS 0.5 % NRG SUREPATH PAP RFX HPV mRNA E6/E7 - 13:12 CLINICAL INFORMATION: NRG LMP: NRG PREV. PAP: NRG PREV. BX: NRG SOURCE: NR STATEMENT OF ADEQUACY: NR INTERPRETATION/RESULT: NR SOLUTION CONSULTANT: NRG COMMENT NRG CEA - 10/19/19 14:41 CEA 2.7 ng/mL See Note: CA 125 - 10/19/19 14:41 CA 125 34 U/mL <35 Encounters ACCT No. Visit Date/Time Discharge Status Pt. Type Provider Facility Loc./Unit Complaint [id number] 10/19/2015 12:16:06 10/19/2015 23:59: 59 CLS Outpatient Christopher Merritt [id number] 03/30/2015 15:46:58 03/30/2015 23:59: 59 CLS Outpatient Christopher Merritt [id number] 03/28/2015 13:16:14 03/28/2015 23:59: 59 CLS Outpatient Christopher Merritt [id number] 03/08/2015 14:53:20 03/08/2015 23:59: 59 CLS Outpatient Christopher Merritt [id number] 06/08/2014 14:29:24 06/08/2014 23:59: 59 CLS Outpatient RenettaMahesh [id number] 06/03/2014 11:58:38 06/03/2014 23:59: 59 CLS Outpatient Mahesh Jackson Jen [id number] 04/05/2019 18:24:00 20:32:00 DIS Outpatient CITLALYLEE [facility] ER R LEG LAC [id number] 03/24/2019 08:31:00 019 23:59:59 CLS Outpatient MAHENDRA ROJAS, EDWARDO Nelson [facility] RAD SCREENING [id number] 09/29/2017 14:14:00 018 16:36:00 DIS Emergency CITLALYLEE [facility] ER POSSIBLE UTI/DIZZINESS [id number] 08/01/2017 12:56:00 018 23:59:59 CLS Preadmit ADEOLA STILES APRN [facility] WOUNDCARE [id number] 07/18/2017 13:46:00 017 23:59:59 CLS Outpatient ADEOLA STILES APRN [facility] WOUNDCARE [id number] 07/04/2017 13:08:00 017 23:59:59 CLS Outpatient ADEOLA STILES APRN [facility] WOUNDCARE [id number] 03/14/2017 16:19:00 017 23:59:59 CLS Outpatient BEKA DOTY [facility] RAD KIDNEY STONES, RECURREN T UTI,KEMAR POUCH [id number] 01/15/2017 19:43:00 017 10:40:00 DIS Inpatient MARAH ROJAS, GERALD Hastings [facility] 4TH URINARY TRACT INFECTION ,SEPSIS [id number] 01/04/2017 07:18:00 017 13:30:00 DIS Inpatient JACQUE CEVALLOS DOIC Antonia [facility] 4TH SACRAL ULCERS; PARAPLEG [place] [id number] 12/31/2016 12:05:00 017 12:45:00 DIS Outpatient JACQUE CEVALLOS DOIC Antonia [facility] PREOP SACRAL ULCERS,PARAPLEGI A [id number] 11/04/2016 15:34:00 017 23:59:59 CLS Outpatient EDWARDO MCCRAY MD [facility] UTI [id number] 11/02/2016 21:59:00 017 23:59:59 CLS Preadmit EDWARDO MCCRAY MD [facility] UTI [id number] 11/02/2016 14:39:00 017 23:59:59 CLS Outpatient EDWARDO MCCRAY MD [facility] SDC PLACE PICC LINE,1ST DOS E OF GENTAMYCIN [id number] 10/22/2016 10:41:00 017 23:59:59 CLS Outpatient EDWARDO MCCRAY MD [facility] UTI [id number] 09/21/2016 11:23:00 017 15:15:00 DIS Inpatient BLAIRE TOBIAS DO, V ia [address] SWB [id number] 09/18/2016 18:57:00 017 11:20:00 DIS Inpatient LEON SOLIS MD Via [address] URINARY TRACT INFECTION [id number] 09/08/2016 15:55:00 017 19:20:00 DIS Emergency LEE BOUCHER [facility] ER UTI SYMPTOMS [id number] 03/06/2016 10:21:00 016 23:59:59 CLS Outpatient EDWARDO LAMB MD [facility] UTI [id number] 08/29/2015 23:19:00 02/01/2 016 23:59:59 CLS Outpatient ZEINAB ROJAS, STEPHANIE Reagan [facility] LABNPT terminal carman (curr ent) use of antibiotics, [id number] 11/09/2014 16:38:00 17:22:00 DIS Emergency KASSIE ROJAS, KIRBY Haley [facility] ER JAW PAIN/INJ [id number] 07/29/2014 16:59:00 015 18:56:00 DIS Emergency DAYTON EISENBERG MD [facility] ER BLOOD SUGAR CHANGES [id number] 04/02/2014 18:49:00 014 21:17:00 DIS Emergency DAYTON EISENBERG MD [facility] ER CATHETER PROBLEMS [id number] 09/05/2015 07:21:00 Document Registration [id number] 09/01/2015 07:26:00 Document Registration [id number] 08/29/2015 07:36:00 Document Registration [id number] 09/22/2014 21:37:00 Document Registration [id number] 08/06/2019 15:20:00 08/06/2019 23:59:5 9 CLS Outpatient MAHENDRA ROJAS, EDWARDO [facility] [id number] 10/19/2019 14:00:00 Document Registration [id number] 10/02/2019 10:30:00 Document Registration [id number] 08/06/2019 15:20:00 Document Registration [id number] 04/10/2019 14:40:00 Document Registration [id number] 09/11/2018 12:40:00 Document Registration [id number] 06/03/2018 16:40:00 Document Registration [id number] 12/02/2017 14:40:00 Document Registration [id number] 01/27/2016 14:24:10 Document Registration
[2019-11-12] MEDS ORDERED: cefTRIAXone 1,000 MG/SWFI 10 ML IV PUSH IV SCH ×2 (17:00)
[2019-11-12] MEDS: NS IV 1000 ML 1,000 ML IV SCH (17:59)
[2019-11-13] VITALS (10 sets, daily range): BP systolic 110–151; BP diastolic 61–83
[2019-11-13] MEDS: NS IV 1000 ML 1,000 ML IV SCH ×2 (00:57→09:26)
[2019-11-13 06:03] LABS: BASOPHILS % (AUTO) 0 % (0-10); EOSINOPHILS # (AUTO) 0.3 10^3/uL (0.0-0.3); EOSINOPHILS % (AUTO) 2 % (0-10); HEMATOCRIT 27 % (35-52); HEMOGLOBIN 8.3 G/DL (11.5-16.0); LYMPHOCYTES # (AUTO) 0.5 X 10^3 (1.0-4.0); LYMPHOCYTES % (AUTO) 4 % (12-44); MEAN CORPUSCULAR HEMOGLOBIN 26 PG (25-34); MEAN CORPUSCULAR HGB CONC 30 G/DL (32-36); MEAN CORPUSCULAR VOLUME 84 FL (80-99); MEAN PLATELET VOLUME 10.8 FL (7.4-10.4); MONOCYTES # (AUTO) 0.5 X 10^3 (0.0-1.0); MONOCYTES % (AUTO) 3 % (0-12); NEUTROPHILS # (AUTO) 13.5 X 10^3 (1.8-7.8); NEUTROPHILS % (AUTO) 91 % (42-75); PLATELET COUNT 275 10^3/uL (130-400); RED CELL DISTRIBUTION WIDTH 17.6 % (10.0-14.5); WHITE BLOOD COUNT 14.9 10^3/uL (4.3-11.0)
[2019-11-13 06:12] LABS: POTASSIUM 3.8 MMOL/L (3.6-5.0)
[2019-11-13 06:13] LABS: CALCIUM 7.7 MG/DL (8.5-10.1)
[2019-11-13 06:18] LABS: CREATININE SERUM 1.31 MG/DL (0.60-1.30)
--- NOTE | 2019-11-13 06:37 | NUR ---
CRITICAL LAD NOTIFICATION CO2 OF 7. DR CRYSTAL NOTIFIED . NEW ORDERS RECEIVED.
[2019-11-13] MEDS ORDERED: inSUlin ASPART (NovoLOG) 1 UNIT/0.01 ML (CHARGE PER UNIT) ONE (06:40)
[2019-11-13] MEDS ORDERED: inSUlin ASPART (NovoLOG) 1 UNIT/0.01 ML (CHARGE PER UNIT) SC SCH ×2 (06:45→17:00)
[2019-11-13] MEDS: inSUlin ASPART (NovoLOG) 1 UNIT/0.01 ML (CHARGE PER UNIT) SC SCH ×2 (06:48→12:20)
[2019-11-13] MEDS ORDERED: INSU100V5 SQ (09:36)
[2019-11-13] MEDS ORDERED: ASCO500C17 PO (09:36)
[2019-11-13] MEDS ORDERED: LISI-556 PO (09:36)
[2019-11-13] MEDS ORDERED: INSU100V16 SC (09:36)
[2019-11-13] MEDS ORDERED: MEDR10TA9 PO (09:36)
[2019-11-13] MEDS ORDERED: FERR-84 PO (09:36)
[2019-11-13] MEDS ORDERED: MULT1TAB69 PO (09:36)
[2019-11-13] MEDS: ACETAMINOPHEN 325 MG TABLET PO PRN (09:36)
[2019-11-13] MEDS ORDERED: ATOR40TA70 PO (09:36)
--- NOTE | 2019-11-13 09:39 | NUR ---
SPOKE WITH THE PT AND WENT THRU THE EXT MED HISTORY TO COMPLETE THE MED REC LISINOPRIL 5MG: THE DIRECTIONS ON THE EXT MED HISTORY SHOW 1 TAB DAILY- HOWEVER THE PT SAYS SHE CUTS THE TAB IN HALF AND ONLY TAKES IT ONCE DAILY. OTC MEDS: VIT C IRON MTV TYLENOL PRN
--- NOTE | 2019-11-13 12:08 | NUR ---
CALLED DR CRYSTAL WITH CRITICAL ACCUCHECK OF 478. GIVE 10 UNITS NOW, THEN START 8 UNITS NOVOLOG WITH MEALS IN ADDITION TO THE SLIDING SCALE
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
[2019-11-13] MEDS: IRON SUCROSE 200 MG/10 ML (VENOFER) VIAL IV SCH (13:44)
--- NOTE | 2019-11-13 16:40 | NUR ---
CALLED DR TOBIAS REGARDING CRITICAL BLOOD SUGAR OF 430. MOVE PATIENT TO ICU. SHE WILL START AN INSULIN DRIP
[2019-11-13] MEDS ORDERED: NS IV 1000 ML 1,000 ML IV SCH (16:44)
[2019-11-13] MEDS ORDERED: VANCOMYCIN INJECTION 0.1 MG in NS (IVPB) 250 ML IV SCH (16:45)
[2019-11-13] MEDS ORDERED: inSUlin REGULAR TPN/DRIP ONLY 250 UNITS in NORMAL SALINE 250 ML IV SCH (16:45)
[2019-11-13] MEDS ORDERED: D5 1/2 NS 1000 ML IV SOLUTION 1,000 ML IV SCH (16:45)
--- NOTE | 2019-11-13 17:00 | NUR ---
RECEIVED PT TO ICU 8 VIA BED ACCOMPANIED BY 4TH MEDICAL STAFF, REPORT RECEIVED FROM KATH GUERRA FOR CONTINUING CARE. PT INTRODUCED TO SURROUNDINGS AND INFORMED OF PLAN OF CARE. PT ALERT AND ORIENTED, DENIES C/O. CALL LIGHT WITHIN REACH, WILL CONTINUE TO MONITOR.
--- NOTE | 2019-11-13 17:00 | NUR ---
REPORT GIVEN TO CHARLIE BECKMAN. PATIENT TRANSFERRED VIA BED TO ICU-8.
--- NOTE | 2019-11-13 17:28 | NUR ---
CR 1.31; CR CL ~51 (USED ADJ WT 62.2 KG); ABW 77 KG; VANCO 1250 MG IV BOLUS THEN 1000 MG IV Q12H; TROUGH AFTER 3RD DOSE Addendum: 11/15/19 at 1047 by TRAVON SALEH [facility] 11/14 06 Vanco trough = 28.3. Repeat trough 11/15 @ 0600. Pharmacy to follow-up after results.
[2019-11-13 17:47] LABS: ABG BASE EXCESS -14.6 MMOL/L (-2.5-2.5); ABG OXYGEN SATURATION 99 % (94-100); ABG PCO2 20 MMHG (35-45); ABG PO2 101 MMHG (79-93); ABG TCO2 10.9 MMOL/L (21.0-31.0)
[2019-11-13 17:49] LABS: ABG PH 7.32 (7.37-7.43); ALLENS TEST POSITIVE; PATIENT TEMP 37.2; VENTILATOR NO
[2019-11-13 17:54] LABS: ALBUMIN 3.2 GM/DL (3.2-4.5); CHLORIDE 115 MMOL/L (98-107); POTASSIUM 4.2 MMOL/L (3.6-5.0); SODIUM 136 MMOL/L (135-145)
[2019-11-13 17:55] LABS: CALCIUM 8.1 MG/DL (8.5-10.1)
[2019-11-13 17:58] LABS: BILIRUBIN,TOTAL 0.3 MG/DL (0.1-1.0); CARBON DIOXIDE 10 MMOL/L (21-32)
[2019-11-13] MEDS: POTASSIUM CL 10MEQ/50ML IVPB 50 ML IV SCH ×4 (17:58→21:14)
[2019-11-13] MEDS: 1/2 NS IV SOLUTION 1,000 ML IV SCH ×2 (17:58→20:50)
[2019-11-13 18:00] LABS: ALKALINE PHOSPHATASE 78 U/L (40-136); CREATININE SERUM 1.39 MG/DL (0.60-1.30); GFR ESTIMATED 40
[2019-11-13] MEDS ORDERED: VANCOMYCIN 1250 MG/NS 250 ML IVPB IV NR ×2 (18:00)
[2019-11-13 18:01] LABS: BUN/CREATININE RATIO 9
[2019-11-13 18:03] LABS: ALANINE AMINOTRANSFERASE 30 U/L (0-55)
[2019-11-13 18:09] LABS: GLUCOSE 439 MG/DL (70-105)
[2019-11-13] MEDS ORDERED: MEROPENEM 500 MG VIAL (MERREM) IV ONE ×2 (18:19→22:55)
[2019-11-13] MEDS ORDERED: WATER (STERILE) FOR INJECTION 10 ML ONE ×2 (18:19→22:55)
[2019-11-13] MEDS: MEROPENEM 500 MG in WATER (STERILE) FOR INJECTION 10 ML IV SCH ×2 (18:30→23:58)
[2019-11-13 19:09] LABS: BASOPHILS % (AUTO) 0 % (0-10); EOSINOPHILS # (AUTO) 0.1 10^3/uL (0.0-0.3); EOSINOPHILS % (AUTO) 0 % (0-10); HEMATOCRIT 27 % (35-52); HEMOGLOBIN 8.6 G/DL (11.5-16.0); LYMPHOCYTES # (AUTO) 1.2 X 10^3 (1.0-4.0); LYMPHOCYTES % (AUTO) 7 % (12-44); MEAN CORPUSCULAR HEMOGLOBIN 27 PG (25-34); MEAN CORPUSCULAR HGB CONC 32 G/DL (32-36); MEAN CORPUSCULAR VOLUME 85 FL (80-99); MEAN PLATELET VOLUME 10.3 FL (7.4-10.4); MONOCYTES # (AUTO) 1.1 X 10^3 (0.0-1.0); MONOCYTES % (AUTO) 6 % (0-12); NEUTROPHILS # (AUTO) 16.4 X 10^3 (1.8-7.8); NEUTROPHILS % (AUTO) 87 % (42-75); PLATELET COUNT 364 10^3/uL (130-400); RED CELL DISTRIBUTION WIDTH 17.7 % (10.0-14.5); WHITE BLOOD COUNT 18.9 10^3/uL (4.3-11.0)
[2019-11-13 19:30] LABS: CREATININE SERUM 1.33 MG/DL (0.60-1.30); POTASSIUM 3.9 MMOL/L (3.6-5.0)
[2019-11-13] MEDS ORDERED: NS IV ONE (19:45)
[2019-11-13 20:05] LABS: ANISOCYTOSIS SLIGHT; BAND NEUTROPHILS 2 %; LYMPHOCYTES % (MANUAL) 8 %; MONOCYTES % (MANUAL) 2 %; NEUTROPHILS % (MANUAL) 88 %; POLYCHROMASIA SLIGHT
--- NOTE | 2019-11-13 20:25 | Diagnostic Imaging Report ---
EXAMINATION: Chest 1 view. HISTORY: Acidosis. COMPARISON: 11/12/2019. FINDINGS: There is instrumented posterior spinal fusion, unchanged. No pneumothorax. There is asymmetric attenuation of the right upper zone from prior exam. No consolidation. Heart size is normal. IMPRESSION: Asymmetric attenuation of the right upper zone, new from prior exam. This may be technical or related to positioning or overlying structures, but could represent loculated pleural fluid or pleural-based soft tissue. Consider CT for further evaluation. Dictated by: Dictated on workstation # [id number]
[2019-11-13 20:44] LABS: BILIRUBIN,URINE NEGATIVE (NEGATIVE); CLARITY,URINE TURBID; COLOR,URINE YELLOW; GLUCOSE, URINE (UA) 3+ (NEGATIVE); KETONES,URINE NEGATIVE (NEGATIVE); LEUKOCYTE ESTERASE ,URINE 2+ (NEGATIVE); NITRITE,URINE POSITIVE (NEGATIVE); PROTEIN,URINE 1+ (NEGATIVE)
[2019-11-13 20:57] LABS: BACTERIA,URINE MODERATE /HPF; WBC,URINE TNTC /HPF
[2019-11-13] MEDS ORDERED: fentaNYL INJECTION 100 MCG/2 ML AMP IVP PRN (21:00)
[2019-11-13] MEDS: medroxyPROGESTERone 10 MG (PROVERA) TAB PO SCH (21:14)
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
--- NOTE | 2019-11-13 21:38 | Diagnostic Imaging Report ---
EXAMINATION: Chest 1 view. HISTORY: Line placement. COMPARISON: 11/13/2019. FINDINGS: Left subclavian catheter tip terminates in the superior vena cava. Instrumented posterior spinal fusion is present. There is unchanged asymmetric attenuation of the right upper zone. No pleural effusion or pneumothorax. Heart size is normal. IMPRESSION: 1. Left subclavian catheter tip in the superior vena cava. 2. Unchanged asymmetric attenuation of the right upper zone. Dictated by: Dictated on workstation # [id number]
--- NOTE | 2019-11-13 22:21 | OPERATIVE REPORT ---
DATE OF SERVICE: 11/13/2019 ATTENDING PRIMARY CARE PHYSICIAN: Dr. Jj. ADMITTING PHYSICIAN: Dr. Ambriz. PREOPERATIVE DIAGNOSES: Diabetic ketoacidosis with poor peripheral venous circulation. POSTOPERATIVE DIAGNOSES: Diabetic ketoacidosis with poor peripheral venous circulation. PROCEDURE: Placement of left subclavian central venous catheter placement. SURGEON: Juana Holbrook MD. ANESTHESIA: Local. ESTIMATED BLOOD LOSS: Minimal. DISPOSITION: The patient tolerated the procedure well. INDICATIONS: The patient is a 49-year-old female admitted for fever and nausea. She is a paraplegic and does have an end colostomy as well as an Karis pouch for urine evacuation. She also does have a history of insulin-dependent diabetes and was found to be hyperglycemic. She continued to have elevation of white count, most likely secondary to urinary tract infection and she also had an elevation of glucose and is currently in diabetic ketoacidosis. She has very poor peripheral venous circulation and will require multiple drips as well as IV fluids and will require central venous catheter. DESCRIPTION OF PROCEDURE: The left neck and chest were prepped and draped in standard surgical fashion. A 1% lidocaine was then used to anesthetize the left subclavian region. The left subclavian vein was then cannulated withdrawing venous blood. The guidewire was then inserted without any resistance. The cannulating needle removed, and a skin incision made using 11 blade. A tract was then created using a venous dilator and through this opening, a triple lumen central venous catheter was placed over the guidewire using the Seldinger technique. The guidewire was then removed, and all three ports aram venous blood and saline pushed in without any resistance. The catheter was then sutured to the skin using interrupted 3-0 silk sutures. Catheter was then cleaned and covered with Op-Site. We will get a post-procedure chest x-ray. Job ID: [id number] DocumentID: [id number] Dictated Date: 11/13/2019 21:18:21 Inbound Ingredient Logistics Specialist Date: 11/13/2019 22:20:49 Dictated By: JUANA HOLBROOK MD
--- NOTE | 2019-11-13 23:18 | NUR ---
TIMELINE NOTE BELOW: 11/13/2019 AT 2036: DR. HOBLROOK AT PT BEDSIDE TO INTRODUCE HIMSELF AND DISCUSS PT HISTORY AND CENTRAL LINE PLACEMENT PROCEDURE. DR. HOLBROOK ADDRESSED ALL CONCERNS AND QUESTIONS FROM PT. 11/13/2019 AT 2048: PT PREPPED WITH CHLORHEXIDINE SOLUTION AND ALLOWED TO DRY PER QA AUTOMATION ENGINEER'S GUIDELINES. 11/13/2019 AT 2051: FENTANYL 50MCG IV ADMINISTERED BY THIS RN PER DR. HOLBROOK'S VERBAL ORDER. 11/13/2019 AT 2055: PROCEDURE STARTED. 11/13/2019 AT 2103: PROCEDURE END. 11/13/2019 AT 2129: CXR OBTAINED. PT TOLERATED PROCEDURE WELL, NO ADVERSE EFFECTS NOTED, NO ECTOPY NOTED ON MONITOR.
[2019-11-14] VITALS (23 sets, daily range): BP systolic 105–188; BP diastolic 58–116
[2019-11-14] MEDS: POTASSIUM CL 10MEQ/50ML IVPB 50 ML IV SCH ×2 (00:07→03:12)
[2019-11-14] MEDS: 1/2 NS IV SOLUTION 1,000 ML IV SCH ×4 (00:20→20:05)
[2019-11-14 00:34] LABS: CHLORIDE 119 MMOL/L (98-107); POTASSIUM 3.5 MMOL/L (3.6-5.0); SODIUM 138 MMOL/L (135-145)
[2019-11-14 00:36] LABS: GLUCOSE 200 MG/DL (70-105)
[2019-11-14 00:37] LABS: CARBON DIOXIDE 10 MMOL/L (21-32)
[2019-11-14 00:40] LABS: CREATININE SERUM 0.94 MG/DL (0.60-1.30); GFR ESTIMATED > 60
[2019-11-14 00:41] LABS: BUN/CREATININE RATIO 12
[2019-11-14 03:26] LABS: BASOPHILS % (AUTO) 0 % (0-10); EOSINOPHILS # (AUTO) 0.1 10^3/uL (0.0-0.3); EOSINOPHILS % (AUTO) 1 % (0-10); HEMATOCRIT 22 % (35-52); LYMPHOCYTES # (AUTO) 1.4 X 10^3 (1.0-4.0); LYMPHOCYTES % (AUTO) 10 % (12-44); MEAN CORPUSCULAR HEMOGLOBIN 26 PG (25-34); MEAN CORPUSCULAR HGB CONC 31 G/DL (32-36); MEAN CORPUSCULAR VOLUME 84 FL (80-99); MONOCYTES # (AUTO) 0.8 X 10^3 (0.0-1.0); MONOCYTES % (AUTO) 6 % (0-12); NEUTROPHILS # (AUTO) 10.8 X 10^3 (1.8-7.8); NEUTROPHILS % (AUTO) 82 % (42-75); PLATELET COUNT 285 10^3/uL (130-400); RED CELL DISTRIBUTION WIDTH 17.5 % (10.0-14.5); WHITE BLOOD COUNT 13.1 10^3/uL (4.3-11.0)
[2019-11-14 03:50] LABS: ALANINE AMINOTRANSFERASE 26 U/L (0-55); ALBUMIN 2.5 GM/DL (3.2-4.5); ALKALINE PHOSPHATASE 68 U/L (40-136); BILIRUBIN,TOTAL 0.2 MG/DL (0.1-1.0); BUN/CREATININE RATIO 11; CALCIUM 6.9 MG/DL (8.5-10.1); CARBON DIOXIDE 10 MMOL/L (21-32); CHLORIDE 119 MMOL/L (98-107); CREATININE SERUM 0.94 MG/DL (0.60-1.30); GFR ESTIMATED > 60; GLUCOSE 214 MG/DL (70-105); MAGNESIUM 1.6 MG/DL (1.6-2.4); PHOSPHORUS 1.6 MG/DL (2.3-4.7); POTASSIUM 3.5 MMOL/L (3.6-5.0); SODIUM 137 MMOL/L (135-145); TOTAL PROTEIN 5.4 GM/DL (6.4-8.2)
[2019-11-14] MEDS: MAGNESIUM 1 GM/100 ML IVPB 100 ML IV SCH ×2 (04:28→06:10)
[2019-11-14] MEDS ORDERED: MEROPENEM 500 MG VIAL (MERREM) IV ONE (04:36)
[2019-11-14] MEDS ORDERED: WATER (STERILE) FOR INJECTION 10 ML ONE (04:36)
[2019-11-14] MEDS: MEROPENEM 500 MG in WATER (STERILE) FOR INJECTION 10 ML IV SCH ×4 (04:59→21:57)
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
[2019-11-14] MEDS ORDERED: POTASSIUM CL 10MEQ/50ML IVPB 50 ML IV SCH (06:00)
[2019-11-14] MEDS ORDERED: MAGNESIUM 1 GM/100 ML IVPB 100 ML IV SCH (06:00)
[2019-11-14] MEDS ORDERED: KCL 20 MEQ TAB (K-DUR) PO SCH (06:00)
[2019-11-14] MEDS ORDERED: SODIUM BICARB 8.4% 50 MEQ/50 ML VIAL IV ONE (06:00)
[2019-11-14] MEDS: inSUlin ASPART (NovoLOG) 1 UNIT/0.01 ML (CHARGE PER UNIT) SC SCH ×4 (06:06→20:52)
--- NOTE | 2019-11-14 06:14 | NUR ---
DAYRON 26UNITS GIVEN EARLY PER DR. ROBERSON'S VERBAL ORDER.
[2019-11-14] MEDS: ACETAMINOPHEN 325 MG TABLET PO PRN (06:31)
[2019-11-14] MEDS ORDERED: KCL 20 MEQ TAB (K-DUR) PO ONE (07:00)
[2019-11-14] MEDS: VANCOMYCIN 1 GM/NS 250 ML IVPB IV SCH ×4 (07:45→19:59)
[2019-11-14] MEDS ORDERED: POTASSIUM PHOSPHATE INJ 30 MM in NS (IVPB) 250 ML IV ONE (09:00)
[2019-11-14] MEDS: PANTOPRAZOLE 40 MG (PROTONIX) VIAL IV SCH (09:02)
--- NOTE | 2019-11-14 12:25 | Progress Note - Hospitalist ---
Subjective HPI/CC On Admission Date Seen by Provider: Nov 14, 2019 Time Seen by Provider: 12:10 Subjective/Events-last exam Patient required transfer to ICU yesterday afternoon due to resistant acidosis requiring insulin drip and change of abx regimen from Rocephin to Vanc and Meropenem and aggressive IVF administration due to elevated lactic acid including requirement of central line placement. Hgb stable even though anemia is severe but required transfusion and likely component of dilutional today No pain is reported Patient reports no dyspnea Reviewed meds and labs and Cx Bacteremia noted and covered with abx selections Insulin drip DC now and SQ insulin maintained now Appreciate Dr Javed help Review of Systems General: Fatigue, Malaise Neurological: Incoordination Focused Exam Lactate Level 11/14/19 00:02: Lactic Acid Level 1.56 11/14/19 06:25: Lactic Acid Level 2.14*H 11/14/19 09:11: Lactic Acid Level 1.01 Lactic Acid Level Objective Exam Vital Signs Vital Signs Date Time Temp Pulse Resp B/P (MAP) Pulse Ox O2 Delivery O2 Flow Rate FiO2 11/14/19 16:26 Room Air 11/14/19 16:00 36.4 11/14/19 16:00 100 28 140/90 (107) 100 Capillary Refill : Less Than 3 Seconds General Appearance: No Apparent Distress, WD/WN, Chronically ill Respiratory: Chest Non Tender, Lungs Clear, Normal Breath Sounds, No Accessory Muscle Use, No Respiratory Distress Cardiovascular: Regular Rate, Rhythm, No Edema, No Gallop, No JVD, No Murmur, Normal Peripheral Pulses Neurologic/Psychiatric: Alert, Motor Weakness (paraplegia) Results/Procedures Lab Laboratory Tests 11/13/19 17:30 11/13/19 19:00 11/14/19 00:02 11/14/19 03:06 Patient resulted labs reviewed. Assessment/Plan Assessment and Plan Assess & Plan/Chief Complaint Assessment: Severe sepsis s/p aggressive IVF resuscitation per protocol DKA requiring insulin drip UTI complicated and resistant type Bacteremia with gram negative bacteria specific ID pending Chronic paraplegia Anemia severe requiring transfusion during current hospital stay Colostomy Plan: IVF Abx Insulin drip DC transitioned to SQ insulin Monitor hgb Diagnosis/Problems Diagnosis/Problems (1) Severe sepsis (2) UTI (urinary tract infection) (3) Anemia (4) Transfusion of blood during current hospitalization (5) DKA (diabetic ketoacidosis) (6) Paraplegia Status: Chronic (7) T5 spinal cord injury Status: Acute Qualifiers: Encounter type: initial encounter Qualified Codes: S24.102A - Unspecified injury at t2-t6 level of thoracic spinal cord, initial encounter Clinical Quality Measures DVT/VTE Risk/Contraindication: Risk Factor Score Per Nursin RFS Level Per Nursing on Admit: 4+=Very High Other: hbg < 7 BLAIRE TOBIAS DO Nov 14, 2019 12:25
[2019-11-14] MEDS: medroxyPROGESTERone 10 MG (PROVERA) TAB PO SCH (20:05)
[2019-11-15] VITALS (13 sets, daily range): BP systolic 116–162; BP diastolic 64–93
[2019-11-15] MEDS: ACETAMINOPHEN 325 MG TABLET PO PRN (01:24)
[2019-11-15 03:24] LABS: BASOPHILS % (AUTO) 0 % (0-10); EOSINOPHILS # (AUTO) 0.3 10^3/uL (0.0-0.3); EOSINOPHILS % (AUTO) 2 % (0-10); HEMATOCRIT 22 % (35-52); LYMPHOCYTES % (AUTO) 14 % (12-44); MEAN CORPUSCULAR HEMOGLOBIN 27 PG (25-34); MEAN CORPUSCULAR HGB CONC 31 G/DL (32-36); MEAN CORPUSCULAR VOLUME 85 FL (80-99); MEAN PLATELET VOLUME 9.9 FL (7.4-10.4); MONOCYTES # (AUTO) 0.8 X 10^3 (0.0-1.0); MONOCYTES % (AUTO) 6 % (0-12); NEUTROPHILS # (AUTO) 10.7 X 10^3 (1.8-7.8); NEUTROPHILS % (AUTO) 77 % (42-75); PLATELET COUNT 282 10^3/uL (130-400); RED CELL DISTRIBUTION WIDTH 17.9 % (10.0-14.5); WHITE BLOOD COUNT 13.9 10^3/uL (4.3-11.0)
[2019-11-15 03:33] LABS: CHLORIDE 118 MMOL/L (98-107); POTASSIUM 4.1 MMOL/L (3.6-5.0); SODIUM 140 MMOL/L (135-145)
[2019-11-15 03:35] LABS: CALCIUM 7.2 MG/DL (8.5-10.1); GLUCOSE 160 MG/DL (70-105)
[2019-11-15 03:37] LABS: CARBON DIOXIDE 12 MMOL/L (21-32)
[2019-11-15 03:39] LABS: CREATININE SERUM 0.84 MG/DL (0.60-1.30); GFR ESTIMATED > 60
[2019-11-15 03:40] LABS: BUN/CREATININE RATIO 10
[2019-11-15 03:41] LABS: MAGNESIUM 1.9 MG/DL (1.6-2.4)
[2019-11-15] MEDS ORDERED: SODIUM PHOSPHATE INJ 30 MM in NS (IVPB) 250 ML IV ONE (05:00)
--- NOTE | 2019-11-15 05:10 | Pulmonary Progress Note ---
Subjective Time Seen by a Provider: 05:05 Subjective/Events-last exam pt is doing better. Sepsis Event Evaluation Height, Weight, BMI Height: 5'3.00" Weight: 170lbs. 0.0oz. 77.110028cx; 30.07 BMI Method:Stated Focused Exam Lactate Level 11/14/19 00:02: Lactic Acid Level 1.56 11/14/19 06:25: Lactic Acid Level 2.14*H 11/14/19 09:11: Lactic Acid Level 1.01 Exam Exam Vital Signs Date Time Temp Pulse Resp B/P (MAP) Pulse Ox O2 Delivery O2 Flow Rate FiO2 11/15/19 04:00 Room Air 11/15/19 03:00 89 14 119/70 (86) 98 Room Air 11/15/19 02:00 84 14 122/66 (84) 100 Room Air 11/15/19 01:00 103 20 131/71 (91) 100 Room Air 11/15/19 01:00 100 11/15/19 00:00 92 13 127/65 (85) 100 Room Air 11/15/19 00:00 Room Air 11/14/19 23:31 36.8 11/14/19 23:00 96 19 133/65 (87) 100 Room Air 11/14/19 22:00 108 22 133/77 (95) 99 Room Air 11/14/19 21:00 99 20 135/75 (95) 100 Room Air 11/14/19 20:00 109 20 134/72 (92) 100 Room Air 11/14/19 20:00 Room Air 11/14/19 20:00 37.1 11/14/19 19:00 96 19 128/68 (88) 100 Room Air 11/14/19 19:00 98 11/14/19 18:00 107 32 120/66 (84) 100 Room Air 11/14/19 17:00 111 23 188/104 (132) 100 Room Air 11/14/19 16:26 Room Air 11/14/19 16:00 36.4 11/14/19 16:00 100 28 140/90 (107) 100 Room Air 11/14/19 15:00 96 30 162/89 (113) 100 Room Air 11/14/19 14:00 107 26 158/90 (112) 94 Room Air 11/14/19 13:00 105 50 100 Room Air 11/14/19 12:39 Room Air 11/14/19 12:16 108 11/14/19 12:00 105 144/116 (125) 100 Room Air 11/14/19 11:00 96 20 144/74 (97) 99 Room Air 11/14/19 10:00 101 12 139/74 (95) 95 Room Air 11/14/19 09:00 100 13 126/71 (89) 99 Room Air 11/14/19 08:15 Room Air 11/14/19 08:00 99 24 133/64 (87) 100 Room Air 11/14/19 07:00 99 11/14/19 07:00 104 26 143/95 (111) 100 Room Air 11/14/19 06:00 95 21 142/78 (99) 100 Room Air I & O 11/15/19 07:00 Intake Total 3060 ml Output Total 1350 ml Balance 1710 ml Height & Weight Height: 5'3.00" Weight: 170lbs. 0.0oz. 77.756951kr; 30.07 BMI Method:Stated General Appearance: No Apparent Distress, WD/WN, Chronically ill Respiratory: Chest Non Tender, Lungs Clear, Normal Breath Sounds, No Accessory Muscle Use, No Respiratory Distress Cardiovascular: Regular Rate, Rhythm, No Edema, No Gallop, No JVD, No Murmur, Normal Peripheral Pulses Capillary Refill: Less Than 3 Seconds Gastrointestinal: normal bowel sounds, non tender, soft, other (colostomy in LLQ no erythema or signs of infection, umbilicus C/D/I no signs of infection) Extremity: Normal Capillary Refill, Normal Inspection, Other (lower extremities are flaccid and atrophic. Has use of upper extremities. Attempted catheterization through the umbilicus, unable to get any urine out.) Neurologic/Psychiatric: Alert, Motor Weakness (paraplegia) Skin: Normal Color, Warm/Dry Results Lab Laboratory Tests 11/13/19 05:15 11/13/19 17:30 11/13/19 19:00 11/14/19 00:02 11/14/19 03:06 11/15/19 03:16 Assessment/Plan Assessment/Plan Severe sepsis secondary to UTI -Continue Merrem and vanco for now -Cannon cultures pending metabolic acidosis -Give 2 amps of bicarb -Continue IVF Hypophos -Replace Metabolic nonanion gapped acidosis -Check LA -Monitor -Continue 1/2 NS at 75 cc/hr -Give 2 amps of bicarb Anemia -Monitor Paraplegia MELBA ROBERSON DO Nov 15, 2019 05:10
[2019-11-15] MEDS ORDERED: SODIUM BICARB 8.4% 50 MEQ/50 ML VIAL IV ONE (05:15)
[2019-11-15] MEDS: MEROPENEM 500 MG in WATER (STERILE) FOR INJECTION 10 ML IV SCH ×4 (05:34→23:12)
[2019-11-15] MEDS: LACTATED RINGERS 1,000 ML IV SCH ×2 (05:35→10:22)
[2019-11-15] MEDS ORDERED: TROUGH ORDER-PHARMACY XX NR (06:00)
[2019-11-15] MEDS: inSUlin ASPART (NovoLOG) 1 UNIT/0.01 ML (CHARGE PER UNIT) SC SCH ×4 (06:05→21:27)
[2019-11-15 06:06] LABS: ALBUMIN 2.5 GM/DL (3.2-4.5); CHLORIDE 118 MMOL/L (98-107); SODIUM 140 MMOL/L (135-145)
[2019-11-15 06:07] LABS: CALCIUM 7.2 MG/DL (8.5-10.1)
[2019-11-15 06:08] LABS: GLUCOSE 158 MG/DL (70-105); TOTAL PROTEIN 5.5 GM/DL (6.4-8.2)
[2019-11-15 06:09] LABS: CARBON DIOXIDE 13 MMOL/L (21-32)
[2019-11-15 06:10] LABS: BILIRUBIN,TOTAL 0.2 MG/DL (0.1-1.0)
[2019-11-15 06:11] LABS: ALKALINE PHOSPHATASE 66 U/L (40-136)
[2019-11-15 06:12] LABS: CREATININE SERUM 0.82 MG/DL (0.60-1.30); GFR ESTIMATED > 60
[2019-11-15 06:13] LABS: BUN/CREATININE RATIO 10
[2019-11-15 06:15] LABS: ALANINE AMINOTRANSFERASE 24 U/L (0-55)
[2019-11-15 06:23] LABS: VANCOMYCIN,TROUGH 28.3 UG/ML (10.0-20.0)
[2019-11-15] MEDS: VANCOMYCIN 1 GM/NS 250 ML IVPB IV SCH ×2 (06:40)
[2019-11-15] MEDS: PANTOPRAZOLE 40 MG (PROTONIX) VIAL IV SCH (07:48)
[2019-11-15] MEDS: IRON SUCROSE 200 MG/10 ML (VENOFER) VIAL IV SCH (07:49)
[2019-11-15] MEDS: 1/2 NS IV SOLUTION 1,000 ML IV SCH (07:49)
--- NOTE | 2019-11-15 08:40 | Diagnostic Imaging Report ---
INDICATION: Sepsis. Time of exam 3:12 AM Correlation is made with prior chest from 11/13/2019. Heart size is stable. Left-sided line has tip overlying SVC. Right hemidiaphragm is mildly elevated. There is minimal subsegmental atelectasis right base. Otherwise lungs are clear. No infiltrates are seen. There is no effusion or pneumothorax. Thoracic spinal instrumentation is again noted. IMPRESSION: Development of minimal subsegmental atelectasis right base since exam 2 days earlier. Dictated by: Dictated on workstation # [id number]
--- NOTE | 2019-11-15 10:00 | NUR ---
REPORT RECEIVED FROM SALES ENGINEERING MANAGER RUTH. PATIENT SETTLED IN ROOM 404. PATIENT DENIES ANY NEEDS AT THIS TIME. WILL CONTINUE TO MONITOR..
--- NOTE | 2019-11-15 10:08 | NUR ---
1000 PT TRANSFERRED VIA BED TO ROOM 404 ALL PERSONAL BELONGINGS SENT DOWN WITH PT. REPORT GIVEN PRIOR TO TRANSFER TO Minh ARROYO RN.
[2019-11-15] MEDS ORDERED: MEROPENEM 500 MG VIAL (MERREM) IV ONE (11:27)
[2019-11-15] MEDS ORDERED: WATER (STERILE) FOR INJECTION 10 ML ONE (11:27)
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
[2019-11-15] MEDS: medroxyPROGESTERone 10 MG (PROVERA) TAB PO SCH (21:27)
[2019-11-16 04:38] VITALS: BP 130/76
[2019-11-16 05:24] LABS: BASOPHILS % (AUTO) 0 % (0-10); EOSINOPHILS # (AUTO) 0.2 10^3/uL (0.0-0.3); EOSINOPHILS % (AUTO) 1 % (0-10); HEMATOCRIT 26 % (35-52); HEMOGLOBIN 7.9 G/DL (11.5-16.0); LYMPHOCYTES # (AUTO) 1.9 X 10^3 (1.0-4.0); LYMPHOCYTES % (AUTO) 18 % (12-44); MEAN CORPUSCULAR HEMOGLOBIN 27 PG (25-34); MEAN CORPUSCULAR HGB CONC 31 G/DL (32-36); MEAN CORPUSCULAR VOLUME 87 FL (80-99); MEAN PLATELET VOLUME 9.9 FL (7.4-10.4); MONOCYTES # (AUTO) 0.6 X 10^3 (0.0-1.0); MONOCYTES % (AUTO) 6 % (0-12); NEUTROPHILS # (AUTO) 8.2 X 10^3 (1.8-7.8); NEUTROPHILS % (AUTO) 75 % (42-75); PLATELET COUNT 259 10^3/uL (130-400); RED CELL DISTRIBUTION WIDTH 17.9 % (10.0-14.5); WHITE BLOOD COUNT 10.9 10^3/uL (4.3-11.0)
[2019-11-16 05:38] LABS: ALANINE AMINOTRANSFERASE 24 U/L (0-55); ALBUMIN 2.6 GM/DL (3.2-4.5); ALKALINE PHOSPHATASE 92 U/L (40-136); BILIRUBIN,TOTAL 0.2 MG/DL (0.1-1.0); BUN/CREATININE RATIO 10; CALCIUM 7.3 MG/DL (8.5-10.1); CARBON DIOXIDE 16 MMOL/L (21-32); CHLORIDE 115 MMOL/L (98-107); CREATININE SERUM 0.78 MG/DL (0.60-1.30); GFR ESTIMATED > 60; GLUCOSE 140 MG/DL (70-105); MAGNESIUM 1.7 MG/DL (1.6-2.4); PHOSPHORUS 2.8 MG/DL (2.3-4.7); POTASSIUM 3.9 MMOL/L (3.6-5.0); SODIUM 141 MMOL/L (135-145); TOTAL PROTEIN 5.6 GM/DL (6.4-8.2)
[2019-11-16 05:44] LABS: VANCOMYCIN,TROUGH 12.3 UG/ML (10.0-20.0)
[2019-11-16] MEDS: inSUlin ASPART (NovoLOG) 1 UNIT/0.01 ML (CHARGE PER UNIT) SC SCH (05:45)
[2019-11-16] MEDS: MEROPENEM 500 MG in WATER (STERILE) FOR INJECTION 10 ML IV SCH (05:49)
[2019-11-16] MEDS ORDERED: TROUGH ORDER-PHARMACY XX NR (06:00)
--- NOTE | 2019-11-16 07:19 | Pulmonary Progress Note ---
Subjective Time Seen by a Provider: 07:15 Subjective/Events-last exam No complications noted. Sepsis Event Evaluation Height, Weight, BMI Height: 5'3.00" Weight: 170lbs. 0.0oz. 77.820420uu; 30.07 BMI Method:Stated Focused Exam Lactate Level 11/14/19 00:02: Lactic Acid Level 1.56 11/14/19 06:25: Lactic Acid Level 2.14*H 11/14/19 09:11: Lactic Acid Level 1.01 Exam Exam Vital Signs Date Time Temp Pulse Resp B/P (MAP) Pulse Ox O2 Delivery O2 Flow Rate FiO2 11/16/19 04:38 36.8 93 18 130/76 (94) 98 Room Air 11/15/19 23:13 36.9 101 18 136/66 (89) 100 Room Air 11/15/19 20:04 Room Air 11/15/19 19:53 36.5 100 20 129/74 (92) 98 Room Air 11/15/19 16:00 36.6 98 16 125/77 (93) 100 Room Air 11/15/19 12:00 36.5 96 16 162/85 (110) 100 Room Air 11/15/19 09:00 90 34 144/78 (100) 100 Room Air 11/15/19 08:39 Room Air 11/15/19 08:00 36.8 I & O 11/16/19 07:00 Intake Total 3320 ml Output Total 2175 ml Balance 1145 ml Height & Weight Height: 5'3.00" Weight: 170lbs. 0.0oz. 77.732201je; 30.07 BMI Method:Stated General Appearance: No Apparent Distress, WD/WN, Chronically ill Respiratory: Chest Non Tender, Lungs Clear, Normal Breath Sounds, No Accessory Muscle Use, No Respiratory Distress Cardiovascular: Regular Rate, Rhythm, No Edema, No Gallop, No JVD, No Murmur, Normal Peripheral Pulses Capillary Refill: Less Than 3 Seconds Gastrointestinal: normal bowel sounds, non tender, soft, other (colostomy in LLQ no erythema or signs of infection, umbilicus C/D/I no signs of infection) Extremity: Normal Capillary Refill, Normal Inspection, Other (lower extremities are flaccid and atrophic. Has use of upper extremities. Attempted catheterization through the umbilicus, unable to get any urine out.) Neurologic/Psychiatric: Alert, Motor Weakness (paraplegia) Skin: Normal Color, Warm/Dry Results Lab Laboratory Tests 11/15/19 03:16 11/15/19 05:43 11/16/19 05:10 Assessment/Plan Assessment/Plan Severe sepsis secondary to UTI - Merrem --D/c vanco -Pt has multiple allergies -Pt is doing well from pulmonary standpoint. I am going to sign off please call with any questions. Metabolic nonanion gapped acidosis - improving -Monitor Anemia -Monitor Paraplegia MELBA ROBERSON DO Nov 16, 2019 07:19
[2019-11-16 08:00] VITALS: BP 132/83
[2019-11-16] MEDS: PANTOPRAZOLE 40 MG (PROTONIX) VIAL IV SCH (08:18)
[2019-11-16] MEDS ORDERED: CEFDINIR 300 MG (OMNICEF) CAP PO SCH (10:00)
[2019-11-16] MEDS ORDERED: CEFD300C3 PO (11:11)
--- NOTE | 2019-11-16 11:12 | Discharge Summary ---
Discharge Summary Hospital Course Was the Problem List Reviewed?: Yes Problems/Dx: (1) Severe sepsis (2) UTI (urinary tract infection) (3) Anemia (4) Transfusion of blood during current hospitalization (5) DKA (diabetic ketoacidosis) (6) Paraplegia Status: Chronic (7) T5 spinal cord injury Status: Acute Qualifiers: Qualified Codes: S24.102A - Unspecified injury at t2-t6 level of thoracic spinal cord, initial encounter Hospital Course Date of Admission: Nov 12, 2019 at 15:22 Admission Diagnosis : Family Physician/Provider: Milo Jj MD Date of Discharge: 11/16/19 Discharge Diagnosis: severe sepsis, DKA, UTI, paraplegia Hospital Course: Patient was admitted and treated for UTI with Rocephin but patient worsened with severe sepsis so abx was broadened to Vanc and Meropenem and placed in ICU for large volume IVF and insulin drip for DKA. Patient was ultimately moved back to 4th floor and remained stable and patient was deemed stable for DC on all home meds including insulin and will complete Omnicef as ordered. Labs and Pending Lab Test: Laboratory Tests 11/15/19 15:57: Glucometer 160H 11/15/19 20:26: Glucometer 232H 11/16/19 05:10: White Blood Count 10.9, Red Blood Count 2.96L, Hemoglobin 7.9L, Hematocrit 26L, Mean Corpuscular Volume 87, Mean Corpuscular Hemoglobin 27, Mean Corpuscular Hemoglobin Concent 31L, Red Cell Distribution Width 17.9H, Platelet Count 259, Mean Platelet Volume 9.9, Neutrophils (%) (Auto) 75, Lymphocytes (%) (Auto) 18, Monocytes (%) (Auto) 6, Eosinophils (%) (Auto) 1, Basophils (%) (Auto) 0, Neutrophils # (Auto) 8.2H, Lymphocytes # (Auto) 1.9, Monocytes # (Auto) 0.6, Eosinophils # (Auto) 0.2, Basophils # (Auto) 0.0, Sodium Level 141, Potassium Level 3.9, Chloride Level 115H, Carbon Dioxide Level 16L, Anion Gap 10, Blood Urea Nitrogen 8, Creatinine 0.78, Estimat Glomerular Filtration Rate > 60, BUN/C reatinine Ratio 10, Glucose Level 140H, Calcium Level 7.3L, Corrected Calcium 8.4L, Phosphorus Level 2.8, Magnesium Level 1.7, Total Bilirubin 0.2, Aspartate Amino Transf (AST/SGOT) 17, Alanine Aminotransferase (ALT/SGPT) 24, Alkaline Phosphatase 92, Total Protein 5.6L, Albumin 2.6L, Vancomycin Level Trough 12.3 Microbiology 11/13/19 Blood Culture - Preliminary, Resulted No growth 11/13/19 Urine Culture - Final, Complete Klebsiella pneumoniae Home Meds Active Cefdinir 300 Mg Capsule 300 Mg PO BID Reported Iron (Ferrous Sulfate) 325 Mg Tablet 325 Mg PO DAILY Vitamin C (Ascorbic Acid) 500 Mg Capsule 500 Mg PO HS Atorvastatin Calcium 40 Mg Tablet 40 Mg PO DAILY Medroxyprogesterone Acetate 10 Mg Tablet 10 Mg PO HS Lisinopril 5 Mg Tablet 2.5 Mg PO DAILY TAKES OF A 5 MG TAB Novolog (Insulin Aspart) 100 Unit/1 Ml Susp 8-12 Units SC TIDWM USES PER SLIDING SCALE BETWEEN 8-12 UNITS Multivitamins (Multivitamin) 1 Each Tablet 1 Each PO DAILY Levemir (Insulin Determir) 1,000 Units/10 Ml Soln 26 Units SQ BID Tylenol Extra Strength (Acetaminophen) 500 Mg Tablet 500 Mg PO Q4H PRN Metformin HCl 500 Mg Tablet 1,000 Mg PO BID TAKES 2 (500MG) TABS TWICE DAILY Assessment/Pt Instructions [facility] 1 week Discharge Planning: <30 minutes discharge planning Discharge Instructions Discharge Diet: No Restrictions Discharge Physical Examination Vital Signs Vital Signs Date Time Temp Pulse Resp B/P (MAP) Pulse Ox O2 Delivery O2 Flow Rate FiO2 11/16/19 08:00 97 Room Air 11/16/19 08:00 37.0 111 20 132/83 (99) General Appearance: No Apparent Distress, WD/WN Respiratory: Lungs Clear Cardiovascular: Regular Rate, Rhythm Allergies: Coded Allergies: latex (Unverified Allergy, Severe, 04/02/14) ANAPHYLAXIS ciprofloxacin (Unverified Allergy, Mild, 04/02/14) RASH hydrocodone (Unverified Allergy, Mild, 04/02/14) RASH paroxetine (Unverified Allergy, Mild, 04/02/14) RASH phenobarbital (Unverified Allergy, Mild, 04/02/14) RASH sulfamethoxazole (Unverified Allergy, Mild, 04/02/14) RASH trimethoprim (Unverified Allergy, Mild, 04/02/14) RASH oxycodone (Verified Allergy, Unknown, RASH, 12/31/16) Discharge Summary Date of Admission Nov 12, 2019 at 15:22 Date of Discharge Discharge Date: Nov 16, 2019 Discharge Diagnosis Assessment: Severe sepsis s/p aggressive IVF resuscitation per protocol DKA requiring insulin drip UTI complicated and resistant type on Meropenem Bacteremia with gram negative bacteria specific ID pending Chronic paraplegia Anemia severe requiring transfusion during current hospital stay Colostomy Plan: IVF Abx Insulin drip DC transitioned to SQ insulin Monitor hgb (1) Severe sepsis (2) UTI (urinary tract infection) (3) Anemia (4) Transfusion of blood during current hospitalization (5) DKA (diabetic ketoacidosis) (6) Paraplegia Status: Chronic (7) T5 spinal cord injury Status: Acute Qualifiers: Qualified Codes: S24.102A - Unspecified injury at t2-t6 level of thoracic spinal cord, initial encounter Clinical Quality Measures DVT/VTE Risk/Contraindication: Risk Factor Score Per Nursin RFS Level Per Nursing on Admit: 4+=Very High Other: hbg < 7 BLAIRE TOBIAS DO Nov 16, 2019 11:12
[2019-11-16 12:07] VITALS: BP 132/83
--- NOTE | 2019-11-17 08:14 | Physician Query Clarification ---
PQ-Link Infection to Dev/Proc Admission/Discharge Admission Date: Nov 12, 2019 at 15:22 Discharge Date: Nov 16, 2019 at 12:09 The medical record reflects the following clinical scenario: History/Risk Factors: paraplegia s/p SCI with colostomy and deacon pouch which she straight caths Clinical Findings: urine culture >100,000 klebsiella pneumoniae Treatment: IV Ceftriaxone Question: Can you specify if the UTI is due to/associated with the straight caths? Please document a response in Progress Note or Discharge Summary. 1. Yes - UTI is due to/associated with the straight caths. 2. No - UTI is not due to/associated with the stright caths. 3. Other, with explanation of the clinical findings. 4. Clinically undetermined, no explanation for the clinical findings. PHYSICIAN RESPONSE Specify if infection: 1 Please remember a lack of response to the above will prompt a phone page by CDI/Coding staff. In responding to this query, please exercise your independent professional judgment. The purpose of this communication is to more accurately reflect the complexity of your patients condition. The fact that a question is asked does not imply that any particular answer is desired or expected. Thank you for your timely response to this clarification. Requestors name: Katt THIS PHYSICIAN QUERY FORM IS A PERMANENT PART OF THE MEDICAL RECORD KATT BOOGIE Nov 17, 2019 08:14 BLAIRE TOBIAS DO Nov 17, 2019 12:02
== END 2019-11-16 12:09 | disposition home or self-care (01) | DRG 698 ==
LOC: EDUNIT# 13:22 → ER 13:23 → 4TH 15:22 → ICU 11-13 16:58 → 4TH 11-15 10:12
PROVIDERS: ADMIT Family Medicine; ATTEND Family Medicine
PROC: 02HV33Z Insertion of Infusion Device into Superior Vena Cava, Percutaneous Approach (ICD-10-PCS; principal; 2019-11-13)
DX: T83.518A Infection and inflammatory reaction due to other urinary catheter, initial encounter (principal); N39.0 Urinary tract infection, site not specified; A41.9 Sepsis, unspecified organism; S24.102S Unspecified injury at T2-T6 level of thoracic spinal cord, sequela; G82.22 Paraplegia, incomplete; C56.9 Malignant neoplasm of unspecified ovary; C55 Malignant neoplasm of uterus, part unspecified; N93.9 Abnormal uterine and vaginal bleeding, unspecified; D50.9 Iron deficiency anemia, unspecified; E11.10 Type 2 diabetes mellitus with ketoacidosis without coma; I10 Essential (primary) hypertension; V99.XXXS Unspecified transport accident, sequela; Z79.4 Long term (current) use of insulin; Z99.3 Dependence on wheelchair; Z90.5 Acquired absence of kidney; Z93.3 Colostomy status; E87.2 Acidosis; E83.42 Hypomagnesemia; E83.39 Other disorders of phosphorus metabolism
CPT/HCPCS: 36415; 36600; 51701; 71045; 74176; 80048; 80053; 80202; 81000; 82010; 82274; 82728; 82805; 82962; 83036; 83540; 83605; 83735; 83880; 84100; 84145; 84484; 85007; 85025; 85027; 85610; 85730; 86850; 86900; 86901; 86920; 87040; 87077; 87088; 87186; 93041; 96374

== ENCOUNTER 2019-11-21 11:47 | Outpatient (CLI) | payer MEDICARE, MEDICAID ==
[2019-11-21] VITALS (9 sets, daily range): BP systolic 102–128; BP diastolic 62–84
[~2019-11-21] VITALS: Ht 160 cm; Wt 77.0 kg
[~2019-11-21 11:47] MED LIST changes: +ASCO500C17 PO; +ATOR40TA70 PO; +CEFD300C3 PO; +FERR-84 PO; +INSU100V16 SC; +LISI-556 PO; +MEDR10TA9 PO; +MULT1TAB69 PO
[2019-11-21] MEDS ORDERED: ACETAMINOPHEN 500 MG TAB (TYLENOL) PO ONE (12:15)
[2019-11-21] MEDS ORDERED: diphenhydrAMINE 25 MG TAB (BENADRYL) PO ONE ×2 (12:15→13:44)
[2019-11-21] MEDS ORDERED: NS IV 500 ML 500 ML IV SCH (12:15)
[2019-11-21] MEDS ORDERED: NS IV 500 ML 500 ML ONE ×2 (12:18→16:26)
[2019-11-21] MEDS ORDERED: ACETAMINOPHEN 500 MG TAB (TYLENOL) ONE (13:44)
--- NOTE | 2019-11-21 14:00 | NUR ---
1ST UNIT PRBC'S INFUSING
--- NOTE | 2019-11-21 16:20 | NUR ---
BENADRYL HELD BECAUSE PT FREQUENTLY FALLING ASLEEP DURING PREPARATION FOR BLOOD TRANSFUSION
--- NOTE | 2019-11-21 16:58 | NUR ---
1ST UNIT PRBC'S COMPLETE, CBC BEING REDRAWN AT THIS TIME. PT TOLERATED WELL, NO DISCOMFORT VERBALIZED. WILL CONTINUE TO MONITOR
[2019-11-21 17:19] LABS: HEMOGLOBIN 7.6 G/DL (11.5-16.0); MEAN PLATELET VOLUME 10.8 FL (7.4-10.4); RED CELL DISTRIBUTION WIDTH 20.9 % (10.0-14.5); WHITE BLOOD COUNT 13.7 10^3/uL (4.3-11.0)
--- NOTE | 2019-11-21 18:05 | NUR ---
DR MANN CALLED FOR PERMISSION TO INFUSE 2ND UNIT. ORDER RECEIVED TO PROCEED WITH INFUSION
--- NOTE | 2019-11-21 18:16 | NUR ---
2ND UNIT PRBC'S INFUSING
--- NOTE | 2019-11-21 21:15 | NUR ---
2nd unit [facility]'s complete. Dr. De La Fuente instructed to have pt follow up with Dr. Jj as to when he would want pt to have H&H redrawn. Pt verbalizes understanding of Follow up with Dr. Jj and states she will contact in am. Pt left floor via motorized wheelchair accompanied by CHARLIE Ba. Addendum: 11/21/19 at 2144 by ARELY HE RN pt left floor at 2134 via WC.
== END 2019-11-21 21:35 | disposition home or self-care (01) ==
LOC: 4TH 11:47 → 4THo 11:47
PROVIDERS: ATTEND Family Medicine
DX: D62 Acute posthemorrhagic anemia (principal)
CPT/HCPCS: 36415; 36430; 85027; 86850; 86900; 86901; 86920

== ENCOUNTER 2019-11-25 12:48 | Outpatient (RCR) | payer MEDICARE, MEDICAID ==
[~2019-11-25] VITALS: Ht 160 cm; Wt 77.3 kg
[2019-11-26] MEDS ORDERED: TRM50T PO (10:35)
== END 2019-11-25 13:15 | disposition home or self-care (01) ==
LOC: PREOP 12:48 → EDSTATUS 13:00 → PREOP 13:15
PROVIDERS: ATTEND Surgery
DX: Z01.818 Encounter for other preprocedural examination (principal)

== ENCOUNTER 2019-11-26 09:49 | Day surgery (SDC) | payer MEDICARE, MEDICAID ==
[~2019-11-26] VITALS: Ht 160 cm; Wt 77.3 kg
[2019-11-26] VITALS (10 sets, daily range): BP systolic 79–109; BP diastolic 28–93
--- NOTE | 2019-11-26 10:28 | Progress Note-Pre Operative ---
Pre-Operative Progress Note H&P Reviewed The H&P was reviewed, patient examined and no changes noted. Date Seen by Provider: Nov 26, 2019 Time Seen by Provider: 10:25 Date H&P Reviewed: Nov 26, 2019 Time H&P Reviewed: 10:20 Pre-Operative Diagnosis: Ovarian Cancer, Poor venous access WANDA DENISE BELL VALET Nov 26, 2019 10:28
[2019-11-26] MEDS ORDERED: ACETAMINOPHEN 325 MG TABLET PO PRN (10:30)
[2019-11-26] MEDS ORDERED: ONDANSETRON 4 MG/2 ML (SDV) Z0FRAN IVP PRN (10:30)
[2019-11-26] MEDS ORDERED: fentaNYL INJECTION 100 MCG/2 ML AMP IVP PRN (10:30)
[2019-11-26] MEDS ORDERED: TRM50T PO (10:35)
--- NOTE | 2019-11-26 10:36 | Discharge Inst-Surgical ---
D/C Lap Instructions-KIDO Reconcile Patient Problems Problems Reviewed?: Yes New, Converted, or Re-Newed RX: RX on Chart Follow Up Appt as needed. Activity as tolerated No driving for 24 hours No driving while on pain medications Regular Diet Symptoms to Report: Fever over 101 degree F, Nausea/Vomiting Infection Signs and Symptoms to report: Increased redness, Foul odor of wound, Increased drainage Bathing instructions: May shower Operative Area Clean/Dry; Keep incision clean/dry If any problems/questions: Contact your physician or go to Emergency Room WANDA DENISE APRN Nov 26, 2019 10:36
[2019-11-26] MEDS ORDERED: 0.9% SODIUM CHLORIDE PF INJ 20 ML VIAL ONE (10:41)
[2019-11-26] MEDS ORDERED: HEParin (CENTRAL IV FLUSH) 500 UNIT/5 ML SYR ONE (10:41)
[2019-11-26] MEDS ORDERED: BUP/EPI 0.5% 1:200,000 (SENSORCAINE) 30 ML VIAL ONE (10:41)
[2019-11-26] MEDS ORDERED: MIDAZOLAM 2 MG/2 ML (VERSED) VIAL ONE (10:57)
[2019-11-26] MEDS ORDERED: ceFAZolin 2 GM IV Premixed 50 ML ONE (11:05)
[2019-11-26] MEDS ORDERED: LACTATED RINGERS 1,000 ML IV PRN (11:18)
[2019-11-26] MEDS ORDERED: PROPOFOL INJECTION 50 ML IV ONE (11:18)
[2019-11-26] MEDS ORDERED: ceFAZolin 2 GM IV Premixed 50 ML IV ONE (11:30)
[2019-11-26] MEDS ORDERED: fentaNYL INJECTION 100 MCG/2 ML AMP ONE (12:10)
--- NOTE | 2019-11-26 13:20 | Progress Note-Post Operative ---
Post-Operative Progess Note Surgeon (s)/Rip Machine Operator (s) Surgeon JUANA HOLBROOK MD Rip Machine Operator: jyotsna harris SUPERVISING FILM OR VIDEOTAPE EDITOR Pre-Operative Diagnosis Ovarian Cancer, Poor venous access Post-Operative Diagnosis same Procedure & Operative Findings Date of Procedure 11/26/19 Procedure Performed/Findings left subclavian groshong implantable catheter placement under flouroscopy. Anesthesia Type mac with local Estimated Blood Loss Estimated blood loss (mL): minimal Specimens/Packing Specimens Removed none JUANA HOLBROOK MD Nov 26, 2019 13:20
--- NOTE | 2019-11-26 14:18 | Anesthesia-General Post-Op ---
MAC Patient Condition Mental Status/LOC: Same as Preop Cardiovascular: Satisfactory Nausea/Vomiting: Absent Respiratory: Satisfactory Pain: Controlled Complications: Absent Post Op Complications Complications None Follow Up Care/Instructions Patient Instructions None needed. Anesthesiology Discharge Order Discharge Order Patient is doing well, no complaints, stable vital signs, no apparent adverse anesthesia problems. No complications reported per nursing. GASPER LINARES CRNA Nov 26, 2019 14:18
--- NOTE | 2019-11-26 14:26 | Diagnostic Imaging Report ---
EXAM: CHEST 1 VIEW, AP/PA ONLY INDICATION: Line placement. COMPARISON: 11/15/2019. FINDINGS: New left subclavian tunneled port CVC tip near the RA/SVC junction. Normal heart size and central pulmonary vascularity. No focal pulmonary opacity, pleural effusion or pneumothorax. Postoperative changes in the upper thoracic spine. IMPRESSION: New left subclavian tunneled port CVC tip near the RA/SVC junction. No pneumothorax. Dictated by: Dictated on workstation # [id number]
--- NOTE | 2019-11-26 14:38 | OPERATIVE REPORT ---
DATE OF SERVICE: 11/26/2019 PRIMARY CARE PHYSICIAN: Dr. Jj. PREOPERATIVE DIAGNOSIS: Ovarian cancer. POSTOPERATIVE DIAGNOSIS: Ovarian cancer. PROCEDURE: Placement of left subclavian Groshong implantable catheter under fluoroscopy. SURGEON: Juana Holbrook MD ACDS BLOCK 1 OPERATOR: Kali Jensen APRN. ANESTHESIA: Monitored anesthesia care with local. ESTIMATED BLOOD LOSS: Minimal. FINDINGS: Catheter tip at superior vena caval -- right atrial junction. DISPOSITION: The patient tolerated the procedure well. INDICATIONS: The patient is a 49-year-old female known to us. She has a history of paraplegia and was recently admitted for fever and nausea. She has an end colostomy, which we had placed as well as an Karis pouch that she uses for self-urine catheterization. She does have issues of chronic urinary tract infections as well as insulin-dependent diabetes and was admitted for diabetic ketoacidosis at that time. She has poor peripheral venous circulation and was recently diagnosed with ovarian cancer and scheduled to see oncology at [facility]. She will need a Groshong implantable catheter. DESCRIPTION OF PROCEDURE: The patient was brought to the operating room, laid supine on the table. After adequate IV pain and sedative medications and monitored anesthesia care, the chest and neck were prepped and draped in standard surgical fashion. A 1% lidocaine with epinephrine was then used to anesthetize the overlying skin in the left subclavian region. The left subclavian vein was then cannulated withdrawing a venous blood. Guidewire was then inserted under fluoroscopy without any resistance. The cannulating needle removed and a skin incision made using a 15 blade. The dilator and sheath were then placed over the guidewire. The guidewire and dilator were then removed and the Groshong implantable catheter was placed through the sheath until the catheter tip was at the superior vena caval -- right atrial junction and the sheath was then removed. The inner wire within the catheter was then removed and the catheter cut down to size and port placed onto the catheter. The subcutaneous reservoir was then created by extending the skin incision laterally. A plane was then created between the subcutaneous fat as well as the anterior pectoralis fascia using blunt dissection as well as electrocautery. Good hemostasis was observed. The port was then placed into the chest reservoir and sutured to the anterior pectoralis fascia using interrupted 3-0 Vicryl sutures. Subcutaneous tissue was then reapproximated using 3-0 Vicryl interrupted sutures. Skin was closed using 4-0 Monocryl running subcuticular suture. Wound was then cleaned and covered with Dermabond. The patient tolerated the procedure well. We will get a post-procedure chest x-ray once confirmation of placement of the port may be accessed and used at any time. Job ID: [id number] DocumentID: [id number] Dictated Date: 11/26/2019 13:26:47 Business Administration Program Chair Date: 11/26/2019 14:37:49 Dictated By: JUANA HOLBROOK MD
--- NOTE | 2019-11-26 15:48 | Diagnostic Imaging Report ---
INDICATION: Port-A-Cath placement. EXAMINATION: Intraoperative fluoroscopy used during Port-A-Cath placement. FINDINGS: There is a catheter in placed from a left-sided approach with tip overlying the low SVC. 4 seconds of fluoroscopy time was used in surgery. IMPRESSION: Limited intraoperative images during Port-A-Cath placement with tip overlying the distal SVC. 4 seconds of fluoroscopy time was used in surgery. Dictated by: Dictated on workstation # [id number]
== END 2019-11-26 14:55 | disposition home or self-care (01) ==
LOC: SDC 09:49
PROVIDERS: ATTEND Surgery
DX: C56.2 Malignant neoplasm of left ovary (principal); I87.2 Venous insufficiency (chronic) (peripheral); N39.0 Urinary tract infection, site not specified; E11.10 Type 2 diabetes mellitus with ketoacidosis without coma; E78.5 Hyperlipidemia, unspecified; G82.20 Paraplegia, unspecified; Z93.3 Colostomy status; Z79.891 Long term (current) use of opiate analgesic; Z79.4 Long term (current) use of insulin; Z90.5 Acquired absence of kidney; Z90.49 Acquired absence of other specified parts of digestive tract; Z79.899 Other long term (current) drug therapy; Z91.040 Latex allergy status; Z88.8 Allergy status to other drugs, medicaments and biological substances; Z88.1 Allergy status to other antibiotic agents; Z88.2 Allergy status to sulfonamides; Z88.6 Allergy status to analgesic agent; Z80.42 Family history of malignant neoplasm of prostate; Z82.49 Family history of ischemic heart disease and other diseases of the circulatory system; Z80.3 Family history of malignant neoplasm of breast
CPT/HCPCS: 71045; 82962; 84703; 87081

== ENCOUNTER 2019-12-25 13:35 | Emergency (ER) | payer MEDICARE, MEDICAID ==
[~2019-12-25] VITALS: Ht 160 cm; Wt 74.8 kg
[~2019-12-25 13:35] MED LIST changes: +TRM50T PO
[2019-12-25] MEDS ORDERED: NS IV 1000 ML 1,000 ML IV ONE ×2 (14:04→16:55)
--- NOTE | 2019-12-25 14:10 | NUR ---
pt has several pressure ulcers to coccyx area with necrotic areas, physician assessed and notified of these
[2019-12-25] MEDS ORDERED: ONDANSETRON 4 MG/2 ML (SDV) Z0FRAN IVP ONE (14:15)
--- NOTE | 2019-12-25 14:32 | Diagnostic Imaging Report ---
INDICATION: Leukocytosis. EXAMINATION: Single AP view of the chest is obtained with comparison made to study of 11/26/2019. FINDINGS: Surgical findings are again noted in the spine with persistence of left anterior chest wall Port-A-Cath. Heart size and pulmonary vascularity are within normal limits, and the lungs are clear, bilaterally. IMPRESSION: Unremarkable chest. Dictated by: Dictated on workstation # [id number]
--- OUTSIDE RECORDS SUMMARY | 2019-12-25 14:33 | XMS REPORT | Encounter Summary ---
Author Author [facility] Organization [facility] Address Unknown Phone Unavailable Care Team Providers Care First Press Operator Name Role Phone Pb Ibrahim MD Unavailable Milo Louis MD Unavailable Christopher Stuart RN Unavailable Unavailable Dorothea Clark MD Unavailable Margaret Bruce [...] Unavailable Unavailable Kathy Gifford RN Unavailable Unavailable Milo Jj MD PCP Reason for Visit * Reason Comments Other Encounter Details Care Team Description Date Type Department Briana Maciel MD [address] [place] [address] Other 12/24/2019 Telephone [facility] [address] [place] [address] Social History Date Tobacco Use Types Packs/Day Years Used Never Smoker Smokeless Tobacco: Never Used Drinks/Week oz/Week Comments Alcohol Use No Sex Assigned at Date Recorded Not on file Industry Job Start Date Occupation Not on file Not on file Not on file Travel End Travel History Travel Start No recent travel history available. Date Recorded COVID-19 Exposure Response 12/23/2019 3:19 PM CDT In the last month, have you been in contact with No / Unsure someone who was confirmed or suspected to have Coronavirus / COVID-19? documented as of this encounter Functional Status Date of Assessment Functional Status Response 12/22/2019 Does the patient have a hearing impairment: No 12/22/2019 Does the patient have a visual impairment: Yes 12/22/2019 Does the patient have impaired ambulation: No 12/22/2019 Does the patient have an activity of daily living No (ADL) impairment: 12/22/2019 Does the patient have an instrumental activity of No daily living (IADL) impairment: Date of Assessment Cognitive Status Response 12/22/2019 Does the patient have a cognitive impairment: No documented as of this encounter Miscellaneous Notes * Telephone Encounter - Marla Lema RN - 12/24/2019 3:24 PM CDT Patient called to let us know she saw someone told at her local clinic and they did a urine test that showed she was borderline septic. She is asking for a dire ct admit to . Spoke to Dr. Maciel and informed patient she will need to go to the ER for work up-this can be done locally- where ever they have her records. She verbalized understanding. documented in this encounter Plan of Treatment Not on filedocumented as of this encounter Visit Diagnoses Not on filedocumented in this encounter Additional Health Concerns Resolved Time Infection Noted Time MRSA 11/21/2015 3:59 PM CDT documented as of this encounter
--- OUTSIDE RECORDS SUMMARY | 2019-12-25 14:33 | XMS REPORT | Encounter Summary ---
Author Author [facility] Organization [facility] Address Unknown Phone Unavailable Care Team Providers Care Rate Clerk Name Role Phone Pb Ibrahim MD Unavailable [...] RN Unavailable Unavailable Milo Jj MD PCP Encounter Details Care Team Description Date Type Department Briana Maciel MD [address] [place] [address] Abnormal uterine bleeding (Primary Dx); Thickened endometrium 12/22/2019 Prep for Case [facility] [address] [place] [address] Social History Date Tobacco Use Types Packs/Day [...] impairment: No documented as of this encounter Plan of Treatment Not on filedocumented as of this encounter Visit Diagnoses Diagnosis Abnormal uterine bleeding Unspecified disorder of menstruation an d other abnormal bleeding from female genital tract Thickened endometrium Nonspecific (abnormal) findings on radi ological and other examination of genitourinary organs documented in this encounter Additional Health Concerns Resolved Time Infection Noted Time MRSA 11/21/2015 3:59 PM CDT documented as of this encounter
--- OUTSIDE RECORDS SUMMARY | 2019-12-25 14:33 | XMS REPORT | Clinical Summary ---
Author Author [facility] Organization [facility] Address Unknown Phone Unavailable Care Team Providers Care Healthcare Sales Representative Name Role Phone Pb Ibrahim MD Unavailable [...] RN Unavailable Unavailable Milo Jj MD PCP Source Comments Some departments are not documenting in the electronic medical record. If you d o not see the information that you expected, contact Release of Information in [facility] Health Information Management department at [phone] for further assistan ce in locating additional records.[facility] Allergies Comments Active Allergy Reactions Severity [...] 500 mL irrigation protect from light Active atorvastatin (LIPITOR) 40 every 24 0 mg tablet hours. Active lisinopriL (ZESTRIL) 5 mg every 24 0 tablet hours. Active medroxyPROGESTERone every 24 0 (PROVERA) 10 mg tablet hours. 0 Status Hospital, Clinic, or Ordered Dose Route Frequency Start End Date Other Facility Date Administered Medication Ended heparin lock flush PF 500 Units IK ONCE 12/22/19 0 syringe 500 Units 20 0 Active Problems Problem Noted Date Recurrent UTI 04/12/2017 Last Assessment & Plan: C&S today ~ no antibiotics Referral to Dr Shaikh to review possible ileal conduit Fu with PMD regarding other findings no melissa on CT and breast discharge UTI (urinary tract infection) 03/02/2016 Kidney stones 09/22/2015 Overview: Patient with recurrent nephrolithiasis associated with [place] pouch. L PCNL 11/22/15 Second look PCNL [...] Diabetes mellitus History of urinary diversion procedure ([place] Pouch) Overview: [place] pouch -- 1999; Dr. Petersen. L ast [...] doing well except for constipat ion. -- Latricia removed today and steri-stri ps placed -- Recommended enema for bowel function -- Continue CIC -- RTC 6 months with renal ultrasound a nd pouch ultrasound along with BMP -- Warnings given to patient who expres sed understanding -- All questions answered Encounters Care Team Description Date Type Specialty Briana Maciel MD Other 12/24/2019 Telephone Oncology Briana Maciel MD Arrived 12/23/2019 Hospital Radiology Encounter 12/23/2019 Briana Gibson MD Labs Only 12/23/2019 Telephone Oncology Briana Maciel MD Abnormal uterine bleeding (Primary Dx) 12/23/2019 Orders Only Oncology Briana Maciel MD Pelvic mass (Primary Dx); Type 2 diabetes mellitus without complication, unspecified whether senior living insulin use (HCC) ; Other abnormal tumor markers 12/22/2019 Office Visit Oncology Briana Maciel MD Abnormal uterine bleeding (Primary Dx); Thickened endometrium 12/22/2019 Prep for Case Oncology 12/22/2019 Briana Gibson MD Navigation Assessment 11/30/2019 Telephone Oncology 11/24/2019 Hospital Radiology Encounter 10/02/2019 Hospital Radiology Encounter from Last 3 Months Immunizations Name Administration Dates Next Due Flu Vaccine Quadrivalent 08/04/2014 =>3 Yo (Preservative Free) Pneumococcal Vaccine 08/04/2014 (23-Jenna Adult) Family History Medical History Relation Name Comments Cancer-Prostate Father Stroke Father Cancer Maternal breast cancer 70s Grandmother Cancer-Breast Maternal Grandmother Cancer Mother breast cancer age 57 Cancer-Breast Mother Diabetes Paternal Grandmother Diabetes Sister Hypertension Sister Relation Name Status Comments Father Alive Maternal Grandmother Mother Paternal Grandmother Sister Social History Date Tobacco Use Types Packs/Day [...] or suspected to have Coronavirus / COVID-19? Last Filed Vital Signs Reading Time Taken Comments Vital Sign 104/60 12/22/2019 9:04 AM CDT Blood Pressure 120 12/22/2019 9:04 AM CDT Pulse 36.8 C (98.2 F) 12/22/2019 9:04 AM CDT Temperature 16 12/22/2019 9:04 AM CDT Respiratory Rate 100% 12/22/2019 9:04 AM CDT Oxygen Saturation - - Inhaled Oxygen Concentration 77.1 kg (170 lb) 12/22/2019 9:04 AM CDT Weight 160 cm (5' 3") 12/22/2019 9:04 AM CDT Height 30.11 12/22/2019 9:04 AM CDT Body Mass Index Plan of Treatment Health Maintenance Due Date Last Done Comments MEDICARE ANNUAL WELLNESS 1970 VISIT HIV SCREENING 1985 DTAP/TDAP VACCINES (1 - 1988 Tdap) HEPATITIS C SCREENING 1988 PHYSICAL (COMPREHENSIVE) 1988 EXAM CERVICAL CANCER SCREENING 1991 BREAST CANCER SCREENING 2010 INFLUENZA VACCINE 04/28/2020 08/04/2014, 05/25/2003 Implants Device Identifier Shelf Expiration Date Model / Serial / L ot Implanted Type Area Manufactur er Port Port Description:Placed in 11-26-2019 at outside facility, unable to verify Upper Back,Rods/Screws Plate/Screws Right: Wrist Procedures Comments Procedure Name Priority Date/Time Associated Diag nosis MRI PELVIS WO/W CONTRAST Routine 12/23/2019 Pelvi c mass 5:25 PM CDT HC ABO GROUP Routine 12/22/2019 Pelvic mass 10:19 AM CDT HC HEMOGLOBIN A1C Routine 12/22/2019 Type 2 diabe jessi mellitus 10:19 AM CDT without complication, unspecified whether exterminator insulin use (HCC) Pelvic mass HC CA 125 Routine 12/22/2019 Other abnormal tumor 10:19 AM CDT markers Pelvic mass HC CA 19-9 Routine 12/22/2019 Other abnormal tumor 10:19 AM CDT markers Pelvic mass HC CEA(CARCINOEMBRYONIC Routine 12/22/2019 Other abnormal tumor AG) 10:19 AM CDT markers Pelvic mass HC BETA-HCG; QUANT Routine 12/22/2019 Other abnor mal tumor 10:19 AM CDT markers Pelvic mass HC ALPHA FETO PROTEIN, Routine 12/22/2019 Other a bnormal tumor SERUM 10:19 AM CDT markers Pelvic mass HC COMPREHENSIVE Routine 12/22/2019 Pelvic mass METABOLIC PANEL 10:19 AM CDT HC CBC W/ AUTOMATED DIFF Routine 12/22/2019 Pelvi c mass 10:19 AM CDT HC LD(LDH;LACTIC Routine 12/22/2019 Pelvic mass DEHYDROGENASE) 10:19 AM CDT US PELVIS EXTERNAL Routine 11/24/2019 IMAGING 12:00 AM CDT US PELVIS EXTERNAL Routine 10/02/2019 IMAGING 12:00 AM DIE TROUBLE SHOOTER from Last 3 Months Results * MRI PELVIS WO/W CONTRAST (12/23/2019 5:25 PM CDT) Specimen Impressions Performed At 1. Complex multilocular left ovarian cyst. The la ck of enhancing component [facility] and stability over time indicates a shweta ign lesion. 2. Small right ovarian cyst. 3. Normal size uterus with heterogene ous myometrium and small endometrial cysts. 4. Complex multilocular cyst in the l ower pole of a solitary left kidney which appears stable since February 2017. 5. Normal size iliac lymph nodes and mildly enlarged right inguinal lymph node which have slowly increased over the pa st 3 years suggesting reactive adenopathy. Finalized by Miguel Elias M.D. on 12/23 7:19 AM. Dictated by Miguel Elias M.D. on 12/24/2019 7:04 AM. Narrative Performed At MRI pelvis [facility] INDICATION: Adnexal mass TECHNIQUE: Standard multiplanar multise quence MRI imaging was performed before, during and after IV contrast excretion of MultiHance. Comparison made with outside noncontras t CT abdomen and pelvis March 14, 2017. FINDINGS: The uterus is normal in size with somew hat heterogeneous atrium. There is no discrete myometrial mass, however there are several tiny endometrial cysts in the right uterine fundus. There is a complex multilocular left ad nexal cyst measuring 5.2 x 4.2 cm on image 28 series 4. There are 2 major locules, both of which contain complex hemorrhagic/proteinaceous fluid. Ther e is no contrast enhancement. This lesion is not significantly changed in size since outside CT of March 14, 2017. At that time the lesion measured appr oximately 6.0 x 3.2 cm. There is a small lentiform cyst within or adjacent to the right ovary measuring 2.4 x 1.0 cm on image 32 series 4. Th is lesion shows no contrast enhancement. Previous CT showed a cystic right ova leighton lesion measuring 3.3 x 2.8 cm. Partially filled bladder unremarkable. Coronal images through the lower abdome n show a multilocular cystic lesion in the lower pole left kidney which was al so present on previous CT. No right kidney is seen. Bowel loops are bal l caliber. No pelvic ascites. There are several normal size and upper limit s normal size external iliac and bilateral inguinal lymph nodes. There is a mildly enlarged right inguinal node measuring 1.9 x 1.2 cm on image 32 seri es 13 compared with 1.4 x 1.1 cm 3 years earlier. Procedure Note Interface, Radiant Results - 12/24/2019 7:22 AM CDT MRI pelvis INDICATION: Adnexal mass TECHNIQUE: Standard multiplanar multisequence MRI imaging was performed before, during and after IV contrast excretion of MultiHance. Comparison made with outside noncontrast CT abdomen and pelvis March 14, 2017. FINDINGS: The uterus is normal in size with somewhat heterogeneous atrium. There is no discrete myometrial mass, however there are several tiny endometrial cysts in the right uterine fundus. There is a complex multilocular left adnexal cyst measuring 5.2 x 4.2 cm on image 28 series 4. There are 2 major locules, both of which contain complex hemorrhagic/proteinaceous fluid. There is no contrast enhancement. This lesion is not significantly changed in size since outside CT of March 14, 2017. At that time the lesion measured approximately 6.0 x 3.2 cm. There is a small lentiform cyst within or adjacent to the right ovary measuring 2.4 x 1.0 cm on image 32 series 4. This lesion shows no contrast enhancement. Previous CT showed a cystic right ovarian lesion measuring 3.3 x 2.8 cm. Partially filled bladder unremarkable. Coronal images through the lower abdomen show a multilocular cystic lesion in the lower pole left kidney which was also present on previous CT. No right kidney is seen. Bowel loops are normal caliber. No pelvic ascites. There are several normal size and upper limits normal size external iliac and bilateral inguinal lymph nodes. There is a mildly enlarged right inguinal node measuring 1.9 x 1.2 cm on image 32 series 13 compared with 1.4 x 1.1 cm 3 years earlier. IMPRESSION 1. Complex multilocular left ovarian cy st. The lack of enhancing component and stability over time indicates a benign lesion. 2. Small right ovarian cyst. 3. Normal size uterus with heterogeneou s myometrium and small endometrial cysts. 4. Complex multilocular cyst in the low er pole of a solitary left kidney which appears stable since February 2017. 5. Normal size iliac lymph nodes and mi ldly enlarged right inguinal lymph node which have slowly increased over the past 3 years suggesting reactive adenopathy. Finalized by Miguel Elias M.D. on 12/24/2019 7:19 AM. Dictated by Miguel Elias M.D. on 12/24/2019 7:04 AM. Performing Organization Address City/State/Zipcode Ph one Number [facility] * CA19.9 (12/22/2019 10:19 AM CDT) CA 19-9 17 <35 U/ml [facility] Specimen Blood Performing Organization Address [facility] one Number [facility] [address] [place] [address] * ALPHA FETO PROTEIN (AFP) (12/22/2019 10:19 AM CDT) Alpha Feto 1.0 0.0 - 15.0 NG/ML [facility] Protein Specimen Blood Performing Organization Address [facility] one Number [facility] [address] [place] [address] * CBC AND DIFF (12/22/2019 10:19 AM CDT) White Blood 20.8 (H) 4.5 - 11.0 K/UL [facility] Cells RBC 3.05 (L) 4.0 - 5.0 M/UL [facility] Hemoglobin 8.7 (L) 12.0 - 15.0 GM/DL [facility] Hematocrit 27.2 (L) 36 - 45 % [facility] MCV 89.0 80 - 100 FL [facility] MCH 28.5 26 - 34 PG [facility] MCHC 32.0 32.0 - 36.0 G/DL [facility] RDW 18.8 (H) 11 - 15 % [facility] Platelet Count 488 (H) 150 - 400 K/UL [facility] MPV 8.5 7 - 11 FL [facility] Neutrophils 84 (H) 41 - 77 % [facility] Lymphocytes 10 (L) 24 - 44 % [facility] Monocytes 5 4 - 12 % [facility] Eosinophils 1 0 - 5 % [facility] Basophils 0 0 - 2 % [facility] Absolute 17.27 (H) 1.8 - 7.0 K/UL [facility] Neutrophil Count Absolute Lymph 2.10 1.0 - 4.8 K/UL [facility] Count Absolute 1.09 (H) 0 - 0.80 K/UL [facility] Monocyte Count Absolute 0.25 0 - 0.45 K/UL [facility] Eosinophil Count Absolute 0.08 0 - 0.20 K/UL [facility] Basophil Count Specimen Blood Performing Organization Address [facility] one Number MAIN LAB [address] [place] [address] * TYPE & SCREEN (NOT CROSSMATCH ELIGIBLE) (12/22/2019 10:19 AM CDT) Record Check FOUND MAIN LAB ABO/RH(D) A POS [facility]IN LAB Antibody Screen POS [facility]IN LAB Antibody Anti-E, MAIN LAB Indentification ANTIBODY PRESENT, UNDETERMI MAK SPECIFICITY, FARIDA, Broad POS MAIN LAB Spectrum Sirena FARIDA, Anti-IgG POS MAIN LAB Sirena FARIDA, NEG [facility] Anti-Complement Antibody Eluted Anti-E, MAIN LAB Antigen E antigen NEG, MAIN LAB Information Specimen Blood, venous - Blood Performing Organization Address [facility] one Number MAIN LAB [address] [place] [address] * CA125 (12/22/2019 10:19 AM CDT) CA-125 51 (H) <35 U/ml [facility] Specimen Blood Performing Organization Address [facility] one Number MAIN LAB [address] [place] [id number] * BETA-HCG (12/22/2019 10:19 AM CDT) Beta-HCG,Serum <1 <5 U/L MAIN LAB Specimen Blood Performing Organization Address [facility] one Number MAIN LAB [address] [place] [phone] * LDH-LACTATE DEHYDROGENASE (12/22/2019 10:19 AM CDT) Lactate 153 100 - 210 U/L MAIN LAB Dehydrogenase Specimen Blood Performing Organization Address [facility] one Number MAIN LAB [address] [place] [address] * HEMOGLOBIN A1C (12/22/2019 10:19 AM CDT) Hemoglobin A1C 8.1 (H) 4.0 - 6.0 % MAIN LAB Comment: The ADA recommends that most patients with type 1 and type 2 diabetes maintain an A1c level <7%. Specimen Blood Performing Organization Address [facility] one Number MAIN LAB [address] [place] [phone] * CEA(CARCINOEMBRYONIC AG) (12/22/2019 10:19 AM CDT) CEA 2.6 <3.0 NG/ML [facility] Specimen Blood Performing Organization Address [facility] one Number [facility] [address] [place] [phone] * COMPREHENSIVE METABOLIC PANEL (12/22/2019 10:19 AM CDT) Sodium 137 137 - 147 MMOL/L [facility] Potassium 4.2 3.5 - 5.1 MMOL/L [facility] Chloride 113 (H) 98 - 110 MMOL/L [facility] Glucose 138 (H) 70 - 100 MG/DL [facility] Blood Urea 22 7 - 25 MG/DL [facility] Nitrogen Creatinine 1.42 (H) 0.4 - 1.00 MG/DL [facility] Calcium 9.6 8.5 - 10.6 MG/DL [facility] Total Protein 7.8 6.0 - 8.0 G/DL [facility] Total Bilirubin 0.2 (L) 0.3 - 1.2 MG/DL [facility] Albumin 3.5 3.5 - 5.0 G/DL [facility] Alk Phosphatase 125 (H) 25 - 110 U/L [facility] AST (SGOT) 30 7 - 40 U/L [facility] CO2 10 (L) 21 - 30 MMOL/L [facility] ALT (SGPT) 32 7 - 56 U/L [facility] Anion Gap 14 (H) 3 - 12 [facility] eGFR Non 39 (L) >60 mL/min [facility] Comment: [place] The eGFR is not validated f or use in drug dosing adjustments. Continue to use estimated creatinine clearance per dosing reference text. Please contact the Clinical Pharmacist for questions. eGFR 48 (L) >60 mL/min [facility] [place] Comment: The eGFR is not validated for use in drug dosing adjustments. Continue to use estimated creatinine clearance per dosing reference text. Please contact the Clinical Pharmacist for questions. Specimen Blood Performing Organization Address [facility] one Number [facility] [address] [place] [phone] * US PELVIS EXTERNAL IMAGING (11/24/2019 12:00 AM CDT) Only the most recent of 2 results within the time period is included. Specimen Narrative Performed At This order has been auto finalized and does not contain a result. from Last 3 Months Additional Health Concerns Resolved Time Infection Noted Time MRSA 11/21/2015 3:59 PM CDT Insurance Type Payer Benefit Subscriber ID Effective Phone Address Plan / Dates Group Medicare MEDICARE MEDICARE xxxxxxxxxxx 2013-P PART A AND resent B Medicaid UHC MEDICAID [place] UHC xxxxxxxxxxx 2016-P [place] [place]AN [place] [phone] Advance Directives Patient Service Captain Explanation Type Date Recorded Advance 03/02/2016 8:11 [...]
--- OUTSIDE RECORDS SUMMARY | 2019-12-25 14:33 | XMS REPORT | Encounter Summary ---
Author Author [facility] Organization [facility] Address Unknown Phone Unavailable Care Team Providers Care Aircraft Restorer Name Role Phone Pb Ibrahim MD Unavailable [...] Description Date Type Department Briana Maciel MD [address] [place] [address] Abnormal uterine bleeding (Primary Dx) 12/23/2019 Orders Only [facility] [address] [place] [address] Social History Date Tobacco Use Types Packs/Day Years Used Never Smoker Smokeless Tobacco: Never Used Drinks/Week oz/Week Comments Alcohol Use No Sex Assigned at Date Recorded Not on file Industry Job Start Date Occupation Not on file Not on file Not on file Travel End Travel History Travel Start No recent travel history available. Date Recorded COVID-19 Exposure Response 12/22/2019 7:59 AM CDT In the last month, have you [...] as of this encounter Plan of Treatment Order Schedule Name Type Priority Associated Diag noses Expected: 12/23/2019, Expires: 1 TYPE & SCREEN (NOT Blood Bank Routine Abnormal ut erine bleeding CROSSMATCH ELIGIBLE) documented as of this encounter Visit Diagnoses Diagnosis Abnormal uterine bleeding Unspecified disorder of menstruation an d other abnormal bleeding from female genital tract documented in this encounter Additional Health Concerns Resolved Time Infection Noted Time MRSA 11/21/2015 3:59 PM CDT documented as of this encounter
--- OUTSIDE RECORDS SUMMARY | 2019-12-25 14:33 | XMS REPORT | Encounter Summary ---
Author Author [facility] Organization [facility] Address Unknown Phone Unavailable Care Team Providers Care Help Desk Specialist Name Role Phone Pb Ibrahim MD Unavailable [...] Unavailable Milo Jj MD PCP Reason for Referral * Radiology Services (Routine) Referred By Contact Referred To Contact Status Reason Specialty Diagnoses / Procedures Briana Maciel MD [address] [place] [address] [facility] [address] [place] [address] No Auth Needed Radiology Diagnoses Pelvic mass P rocedures MRI PELVIS WO/W CONTRAST Reason for Visit * Radiology Services (Routine) Referred By Contact Referred To Contact Status Reason Specialty Diagnoses / Procedures Briana Maciel MD [address] [place] [address] [address] [place] [address] No Auth Needed Radiology Diagnoses Pelvic mass P rocedures MRI PELVIS WO/W CONTRAST Encounter Details Care Team Description Date Type Department Briana Maciel MD [address] [place], [place] [phone] Arrived 12/23/2019 [facility] [address] [place], [place] [id number] Social History Date Tobacco Use Types Packs/Day [...] 12/23/2019 Pelvi c mass 5:25 PM CDT documented in this encounter Results * MRI PELVIS WO/W CONTRAST (12/23/2019 [...] City/State/Zipcode Ph one Number [facility] documented in this encounter Visit Diagnoses Diagnosis Pelvic mass Abdominal or pelvic swelling, mass or l ump, unspecified site documented in this encounter Administered Medications Action Date Dose Rate Site Medication Order MAR Action 12/23/2019 5:30 PM CDT 17 mL gadobenate dimeglumine (MULTIHANCE) Given injection 17 mL 17 mL, Intravenous, ONCE, 1 dose, Sat12/23/19 at 1730, NOTE: This is a HIGH ALERT Medication., 12/23/2019 5:22 PM CDT 500 Units heparin lock flush PF syringe 500 Units Given 500 Units, Flush, ONCE, 1 dose, 12/23/19 at 1715, NOTE: This is a HIGH ALERT Medication., documented in this encounter Additional Health Concerns Resolved Time Infection Noted Time MRSA 11/21/2015 3:59 PM CDT documented as of this encounter
--- OUTSIDE RECORDS SUMMARY | 2019-12-25 14:33 | XMS REPORT | Encounter Summary ---
Author Author [facility] Organization [facility] Address Unknown Phone Unavailable Care Team Providers Care Marketing Mgr Name Role Phone Pb Ibrahim MD Unavailable [...] Details Care Team Description Date Type Department 12/22/2019 Travel Social History Date Tobacco Use Types Packs/Day [...]
--- OUTSIDE RECORDS SUMMARY | 2019-12-25 14:33 | XMS REPORT | Encounter Summary ---
Author Author [facility] Organization [facility] Address Unknown Phone Unavailable Care Team Providers Care Compressor Station Engineer Chief Name Role Phone Pb Ibrahim MD Unavailable [...] PCP Reason for Visit * Reason Comments Labs Only Encounter Details Care Team Description Date Type Department Briana Maciel MD [address] [place] [address] Labs Only 12/23/2019 Telephone [facility] [address] [place] [address] Social History Date Tobacco Use Types Packs/Day [...] Miscellaneous Notes * Telephone Encounter - Marla Lema, RN - 12/23/2019 8:58 AM CDT LM for patient to update us on if she contacted her PCP or went to the ED for he r elevated WBCs. documented in this encounter Plan of Treatment Not on filedocumented as of this encounter Visit Diagnoses Not on filedocumented in this encounter Additional Health Concerns Resolved Time Infection Noted Time MRSA 11/21/2015 3:59 PM CDT documented as of this encounter
--- OUTSIDE RECORDS SUMMARY | 2019-12-25 14:33 | XMS REPORT | Encounter Summary ---
Author Author [facility] Organization [facility] Address Unknown Phone Unavailable Care Team Providers Care Edge Finisher Name Role Phone Pb Ibrahim MD Unavailable [...] Details Care Team Description Date Type Department 12/23/2019 Travel Social History Date Tobacco Use Types [...]
--- OUTSIDE RECORDS SUMMARY | 2019-12-25 14:34 | XMS REPORT | Encounter Summary ---
Author Author [facility] Organization [facility] Address Unknown Phone Unavailable Care Team Providers Care Seat Covers Trimmer Name Role Phone Pb Ibrahim MD Unavailable [...] Specialty Diagnoses / Procedures Briana Maciel MD [address] [place] [address] [facility] [address] [place] [address] No Auth Needed Radiology Diagnoses Pelvic mass P rocedures MRI PELVIS WO/W CONTRAST Reason for Visit * Consult, Test & Treat (Routine) Referred By Contact Referred To Contact Status Reason Specialty Diagnoses / Procedures Jamil Petty DO Cc - [facility] Cl Exm[facility] [address] [place], [place] No Auth Needed Oncology Diagnoses Noninflammatory disorder of ovary, fallopian tube and broad ligament, unspecified Encounter Details Care Team Description Date Type Department Briana Maciel MD [address] [place] [address] [phone] Pelvic mass (Primary Dx); Type 2 diabetes mellitus without complication, unspecified whether skilled nursing insulin use (HCC) ; Other abnormal tumor markers 12/22/2019 Office Visit [facility] [id number] [place] [id number] Social History Date Tobacco Use Types Packs/Day [...] / COVID-19? documented as of this encounter Last Filed Vital Signs Reading Time Taken [...] 12/22/2019 9:04 AM CDT Body Mass Index documented in this encounter Functional Status Date of Assessment [...] impairment: No documented as of this encounter Patient Instructions * Patient Instructions* Marla Lema RN - 12/22/2019 9:00 AM CDT Thank you for your new patient visit with Dr. Maciel. Clinical Nurse Coordinators: Marla Lema & Gino Feldman [phone] Please use the nurses line above if you have any questions or concerns at any ti me. Leave a message if necessary and your call will be returned. If it is after 4:00pm, it may be returned the following business day. documented in this encounter Plan of Treatment Date/Time Name Type Priority Associated Diag noses 12/22/2019 10:19 AM CDT INHIBIN A & B TUMOR Lab Routine Pelvic mas s MARKER Order Schedule Name Type Priority Associated Diag noses Expected: 12/22/2019 (Approximate), Expi res: 12/21/2020 INHIBIN A & B TUMOR Lab Routine Pelvic mas s MARKER documented as of this encounter Procedures Comments Procedure Name Priority Date/Time Associated Diag nosis HC CA 19-9 Routine 12/22/2019 Other abnormal tumor 10:19 AM CDT markers Pelvic mass HC ALPHA FETO PROTEIN, Routine 12/22/2019 Other a bnormal tumor SERUM 10:19 AM CDT markers Pelvic mass HC CBC W/ AUTOMATED DIFF Routine 12/22/2019 Pelvi c mass 10:19 AM CDT HC ABO GROUP Routine 12/22/2019 Pelvic mass 10:19 AM CDT HC CA 125 Routine 12/22/2019 Other abnormal tumor 10:19 AM CDT markers Pelvic mass HC BETA-HCG; QUANT Routine 12/22/2019 Other abnor mal tumor 10:19 AM CDT markers Pelvic mass HC LD(LDH;LACTIC Routine 12/22/2019 Pelvic mass DEHYDROGENASE) 10:19 AM CDT HC HEMOGLOBIN A1C Routine 12/22/2019 Type 2 diabe jessi mellitus 10:19 AM CDT without complication, unspecified whether skilled nursing insulin use (HCC) Pelvic mass HC CEA(CARCINOEMBRYONIC Routine 12/22/2019 Other abnormal tumor AG) 10:19 AM CDT markers Pelvic mass HC COMPREHENSIVE Routine 12/22/2019 Pelvic mass METABOLIC PANEL 10:19 AM CDT documented in this encounter Results * [...] on 12/24/2019 7:04 AM. Performing Organization Address [facility] one Number [facility] RAD RESULTS * LDH-LACTATE DEHYDROGENASE (12/22/2019 10:19 AM CDT) Pathologist [facility] Lactate 153 100 - 210 U/L [facility] Dehydrogenase Specimen Blood Performing Organization Address [facility] one Number [facility] [address] [place] [address] * TYPE & SCREEN (NOT CROSSMATCH ELIGIBLE) (12/22/2019 10:19 AM CDT) Pathologist [facility] Record Check FOUND [facility] ABO/RH(D) A POS [facility] Antibody Screen POS [facility] Antibody Anti-E, [facility] Indentification ANTIBODY PRESENT, UNDETERMI MAK SPECIFICITY, FARIDA, Broad POS [facility] Spectrum Sirena FARIDA, Anti-IgG POS [facility] Sirena FARIDA, NEG [facility] Anti-Complement Antibody Eluted Anti-E, [facility] Antigen E antigen NEG, [facility] Information Specimen Blood, venous - Blood Performing Organization Address [facility] one Number [facility] [address] [place] [address] * CBC AND DIFF (12/22/2019 10:19 AM [...] Basophil Count Specimen Blood Performing Organization Address City/State/Zipcode Ph one Number [facility] [address] [place] [address] * COMPREHENSIVE METABOLIC PANEL (12/22/2019 10:19 AM [...] LAB Albumin 3.5 3.5 - 5.0 G/DL [facility] Alk Phosphatase 125 (H) 25 - 110 U/L [facility] AST (SGOT) 30 7 - 40 U/L [facility] CO2 10 (L) 21 - 30 MMOL/L [facility] ALT (SGPT) 32 7 - 56 U/L [facility] Anion Gap 14 (H) 3 - 12 MAIN LAB eGFR Non 39 (L) >60 mL/min MAIN LAB Comment: English The eGFR is not validated f or use in drug dosing adjustments. Continue to use estimated creatinine clearance per dosing reference text. Please contact the Clinical Pharmacist for questions. eGFR 48 (L) >60 mL/min MAIN LAB English Comment: The eGFR is not validated for use in drug dosing adjustments. Continue to use estimated creatinine clearance per dosing reference text. Please contact the Clinical Pharmacist for questions. Specimen Blood Performing Organization Address [facility] one Number MAIN LAB [address] [place] [address] * ALPHA FETO PROTEIN (AFP) (12/22/2019 10:19 AM CDT) Alpha Feto 1.0 0.0 - 15.0 NG/ML MA[facility] LAB Protein Specimen Blood Performing Organization Address [facility] one Number MAIN LAB [address] [place] [address] * BETA-HCG (12/22/2019 10:19 AM CDT) Beta-HCG,Serum <1 <5 U/L [facility] LAB Specimen Blood Performing Organization Address [facility] one Number MAIN LAB [address] [place] [address] * CEA(CARCINOEMBRYONIC AG) (12/22/2019 10:19 AM CDT) CEA 2.6 <3.0 NG/ML MAIN LAB Specimen Blood Performing Organization Address [facility] one Number MAIN LAB [address] [place] [address] * CA19.9 (12/22/2019 10:19 AM CDT) CA 19-9 17 <35 U/ml [facility] Specimen Blood Performing Organization Address City/[facility] Ph one Number [facility] [address] [place] [address] * CA125 (12/22/2019 10:19 AM CDT) CA-125 51 (H) <35 U/ml [facility] Specimen Blood Performing Organization Address City/[facility] Ph one Number MAIN LAB [address] [place] [address] * HEMOGLOBIN A1C (12/22/2019 10:19 AM CDT) Hemoglobin A1C 8.1 (H) 4.0 - 6.0 % MAIN LAB Comment: The ADA recommends that most patients with type 1 and type 2 diabetes maintain an A1c level <7%. Specimen Blood Performing Organization Address [facility] one Number MAIN LAB [address] [place] [address] documented in this encounter Visit Diagnoses Diagnosis Pelvic mass Abdominal or pelvic swelling, mass or l ump, unspecified site Type 2 diabetes mellitus without compli cation, unspecified whether watermelon inspector insulin use (HCC) Other abnormal tumor markers Other abnormal tumor markers documented in this encounter Administered Medications Action Date Dose Rate Site Medication Order MAR Action 12/22/2019 10:03 AM CDT 500 Units heparin lock flush PF syringe 500 Units Given 500 Units, Intra-catheter, ONCE, 1 dose , 12/22/19 at 1045, NOTE: This is a HIGH ALERT Medication., HEPARIN, PORCINE (PF) 100 UNIT/ML IV SYRG (Cabinet Override) NOW, 1 dose, 12/22/19 at 1000, Created by cabinet override, Created by cabinet override, documented in this encounter Additional Health Concerns Resolved Time Infection Noted Time MRSA 11/21/2015 3:59 PM CDT documented as of this encounter
--- OUTSIDE RECORDS SUMMARY | 2019-12-25 14:34 | XMS REPORT ---
Author Author Tam MCCRAY Organization [facility] Address [address] [place] [address] Care Team Providers Care Supervisor [employer] Name Role Phone EDWARDO MCCRAY Unavailable PROBLEMS Type Condition ICD9-CM Code XRZ11-PT Code Onset Dates Condition S tatus SNOMED Code Problem Colostomy present Z93.3 Active 30 2412446 Problem Urinary incontinence without sensory awareness N39 .42 Active 459364279 Problem Paraplegia G82.20 Active 29790722 Problem Recurrent UTI N39.0 Active 145439 001 Problem Mixed hyperlipidemia E78.2 Active 709179970 Problem Microalbuminuria R80.9 Active 312 345057 Problem Type 2 diabetes mellitus wit hout complication, unspecified computer terminal operator insulin use status E11.9 Active 686219286 Problem Elevated CEA R97.0 Active 2253286 08 Problem Type 2 diabetes mellitus without complications E11 .9 Active 790496387 Problem Blood loss anemia D50.0 Active 41 0692378 Problem buttermaker continuous churn current use of insulin Z79.4 Active 020527146 Problem Seasonal allergies J30.2 Active 4 38603083 Problem Environmental allergies Z91.09 Active 968545920 Problem Abnormal uterine bleeding N93.9 Acti ve [id number] Problem MCFP (current) use of insulin Z79.4 Active 667209121 ALLERGIES No Information ENCOUNTERS Encounter Location Date Diagnosis [facility] [address] [facility] [id number] [address] [place] [phone] November, [facility] [address] [facility] [id number] [address] [place] [phone] November, [facility] [address] [facility] [id number] [address] [place] [phone] November, Type 2 diabetes mellitus wit hout complication, unspecified chcf insulin use status E11.9 [facility] [address] [facility] [id number] [address] [place] [phone] 07 Nov, 2019 Anemia due to acute blood lo ss D62 [facility] [address] [facility] [id number] [address] [place] [phone] November, Blood loss anemia D50.0 [facility] [address] [facility] [id number] [address] [place] [phone] November, Blood loss anemia D50.0 [facility] [address] [facility] [id number] [address] [place] [phone] Oct, Blood loss anemia D50.0 [facility] [address] [facility] [id number] [address] [place] [phone] Oct, Ovarian mass N83.9 [facility] [address] [facility] [id number] [address] [place] [phone] Oct, Blood loss anemia D50.0 and Difficult intravenous access Z78.9 [facility] [address] [place] [id number] [address] [place] [address] Oct, Anemia due to acute blood lo ss D62 and Abnormal uterine bleeding N93.[address] [facility] [address] [place] [id number] [address] [place] [phone] Oct, Pedal edema R60.0 and Dizzin ess R42 [facility] [address] [facility] [id number] [address] [place] [phone] Oct, [address] [id number] [address] Oct, Elevated CEA R97.0 [facility] [address] [facility] [id number] [address] [place] [phone] Oct, Ovarian tumor D49.59 ; Type 2 diabetes mellitus without complications E11.9 and buttermaker continuous churn (current) use of insulin Z79.4 [facility] [address] [facility] [id number] [address] [place] [phone] Oct, [address] [id number] [address] Oct, [facility] [address] [facility] [id number] [address] [place] [phone] Sep, [facility] [address] [facility] [id number] [address] [place] [phone] Sep, Ovarian mass N83.9 [facility] [address] [facility] [id number] [address] [place] [phone] Sep, Ovarian mass N83.9 ; Unspeci fied ovarian cyst, right side N83.201 and Unspecified ovarian cyst, left side N83.202 [place] [address] [facility] [id number] [address] [place] [phone] Sep, [place] [address] [facility] [id number] [address] [place] [address] Sep, Abnormal uterine bleeding N9 3.9 and Well woman exam with routine gynecological exam Z01.419 [place] [address] [facility] [id number] [address] [place] [phone] Aug, [place] [address] [place] [id number] [address] [place] [phone] Jul, Weakness R53.1 and Uncontrol led type 2 diabetes mellitus with hyperglycemia E11.65 [place] [address] [facility] [id number] [address] [place] [phone] May, [facility] [address] [facility] [id number] [address] [place] [phone] May, [facility] [address] [facility] [id number] [address] [place] [phone] Mar, [facility] [address] [facility] [id number] [address] [place] [address] Mar, Type 2 diabetes mellitus wit hout complication, unspecified computer terminal operator insulin use status E11.9 and Urinary tract infection, site not specified N39.0 [facility] [address] [facility] [id number] [address] [place] [phone] Mar, [facility] [address] [facility] [id number] [address] [place] [phone] Mar, [facility] [address] [facility] [id number] [address] [place] [phone] Feb, [facility] [address] [facility] [id number] [address] [place] [phone] Feb, Environmental allergies Z91. 09 [facility] [address] [facility] [id number] [address] [place] [phone] Feb, Seasonal allergies J30.2 [place] [address] [facility] [id number] [address] [place] [phone] Feb, Encounter for Medicare annua l wellness exam Z00.00 ; Paraplegia G82.20 ; Recurrent UTI N39.0 ; Type 2 diabetes mellitus without complications E11.9 ; MCFP current use of insulin Z79.4 ; Mixed hyperlipidemia E78.2 ; Colostomy present Z93.3 ; Family history of breast cancer Z80.3 and Encounter for immunization Z23 [facility] [address] [facility] [id number] [address] [place] [phone] Jan, [facility] [address] [place] [id number] [address] [place] [phone] November, [facility] [address] [facility] [id number] [address] [place] [phone] Oct, [facility] [address] [facility] [id number] [address] [place] [phone] Oct, [facility] [address] [facility] [id number] [address] [place] [phone] Oct, [facility] [address] [facility] [id number] [address] [place] [phone] Oct, Type 2 diabetes mellitus wit hout complication, unspecified chcf insulin use status E11.9 [facility] [address] [facility] [id number] [address] [place] [phone] Oct, Type 2 diabetes mellitus wit hout complications E11.9 and MCFP current use of insulin Z79.4 [facility] [address] [facility] [id number] [address] [place] [phone] Oct, [facility] [address] [facility] [id number] [address] [place] [phone] 18 Aug, 2018 [facility] [address] [facility] [id number] [address] [place] [phone] 14 Aug, 2018 Acute cystitis with hematuri a N30.01 [facility] [address] [facility] [id number] [address] [place] [phone] Jul, [facility] [address] [place] [id number] [place] [phone] Jul, DUB (dysfunctional uterine b leeding) N93.8 [facility] [address] [place] [id number] [address] [place] [phone] May, Mixed hyperlipidemia E78.2 ; Microalbuminuria R80.9 and Acute pyelonephritis N10 [facility] [address] [facility] [id number] [address] [place] [phone] May, Acute pyelonephritis N10 ; T ype 2 diabetes mellitus without complications E11.9 ; Microalbuminuria R80.9 and Recurrent UTI N39.0 [facility] [address] [facility] [id number] [address] [place] [phone] Jan, [facility] [address] [facility] [id number] [address] [place] [phone] Jan, Acute cystitis with hematuri a N30.01 [facility] [address] [facility] [id number] [address] [place] [phone] November, Acute cystitis without hemat uria N30.00 [facility] [address] [facility] [id number] [address] [place] [phone] November, [facility] [address] 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 [id number] [address] [place] [phone] Oct, Medicare annual wellness vis it, initial Z00.00 ; Type 2 diabetes mellitus without complication, unspecified chcf insulin use status E11.9 and Paraplegia G82.20 [place] [address] [place] [id number] [address] [place] [phone] Oct, [place] [address] [place] [id number] [address] [place] [phone] Sep, Type 2 diabetes mellitus wit hout complication, unspecified chcf insulin use status E11.9 [place] [address] [place] [id number] [address] [place] [phone] Sep, [place] [address] [place] [id number] [address] [place] [phone] Aug, Viral gastroenteritis A08.4 [place] [address] [place] [id number] [address] [place] [phone] Jul, Urinary incontinence without sensory awareness N39.42 and Paraplegia G82.20 [place] [address] [place] [id number] [address] [place] [phone] Jul, [place] [address] [place] [id number] [address] [place] [phone] May, Skin ulcer, limited to break down of skin L98.491 and Type 2 diabetes mellitus without complication, unspecified chcf insulin use status E11.9 [place] [address] [place] [id number] [address] [place] [phone] Feb, [place] [address] [place] [id number] [address] [place] [phone] Feb, Type 2 diabetes mellitus wit hout complication, unspecified chcf insulin use status E11.9 [facility] [address] [id number] [address] [place] [phone] Feb, [facility] [address] [facility] [id number] [address] [place] [phone] Jan, Type 2 diabetes mellitus wit hout complication, unspecified computer terminal operator insulin use status E11.9 and Recurrent UTI N39.0 [facility] [address] [id number] [address] [place] [phone] November, [facility] [address] [id number] [address] [place] [phone] Oct, Type 2 diabetes mellitus wit hout complication, unspecified chcf insulin use status E11.9 [facility] [address] [facility] [id number] [address] [place] [phone] Oct, [facility] [address] [facility] [id number] [address] [place] [phone] Oct, [facility] [address] [facility] [id number] [address] [place] [phone] Oct, [facility] [address] [facility] [id number] [address] [place] [phone] Sep, Type 2 diabetes mellitus wit hout complication, unspecified computer terminal operator insulin use status E11.9 [facility] [address] [facility] [id number] [address] [place] [phone] Sep, Type 2 diabetes mellitus wit hout complication, unspecified computer terminal operator insulin use status E11.9 and Paraplegia G82.20 [facility] [id number] [id number] Sep, [facility] [address] [facility] [id number] [address] [place] [phone] Sep, [facility] [address] [facility] [id number] [address] [place] [phone] Aug, Recurrent UTI N39.0 [facility] [address] [facility] [id number] [address] [place] [phone] Jul, Type 2 diabetes mellitus wit hout complication, unspecified computer terminal operator insulin use status E11.9 [facility] [address] [id number] [address] [place] [phone] Jun, Type 2 diabetes mellitus wit hout complication, unspecified computer terminal operator insulin use status E11.9 [facility] [address] [id number] [address] [place] [phone] 09 Jun, 2016 [facility] [address] [facility] [id number] [address] [place] [phone] Jun, [facility] [address] [id number] [address] [place] [phone] Jun, Recurrent UTI N39.0 [facility] [address] [facility] [id number] [address] [place] [phone] May, Recurrent UTI N39.0 [facility] [address] [facility] [id number] [address] [place] [phone] May, Recurrent UTI N39.0 and Post nasal drip R09.82 [place] [address] [facility] [id number] [address] [place] [phone] Apr, [facility] [address] [facility] [id number] [address] [place] [phone] Mar, Avulsion of toenail, subsequ ent encounter S91.209D and Type 2 diabetes mellitus without complication, unspecified computer terminal operator insulin use status E11.9 [facility] [address] [id number] [address] [place] [phone] Mar, [facility] [address] [facility] [id number] [address] [place] [phone] 04 Mar, 2016 Bladder pain R39.89 ; Ingrow ing toenail of left foot L60.0 and Acute cystitis with hematuria N30.01 [facility] [address] [facility] [id number] [address] [place] [phone] Feb, Controlled type 2 diabetes m ellitus without complication, unspecified computer terminal operator insulin use status E11.9 [facility] [address] [facility] [id number] [address] [place] [phone] Jan, Recurrent UTI N39.[address] [facility] [address] [facility] [id number] [address] [place] [phone] Jan, Urinary tract infection, sit e not specified N39.0 and Hematuria, unspecified R31.[address] [facility] [address] [facility] [id number] [place] [address] Dec, Urinary tract infection, sit e not specified N39.0 and Hematuria, unspecified R31.9 IMMUNIZATIONS No Known Immunizations SOCIAL HISTORY Never Assessed REASON FOR VISIT test strips PLAN OF CARE VITAL SIGNS MEDICATIONS Medication Instructions Dosage Frequency Start Date End Date Duration S tatus OneTouch Ultra Test - subcutaneously 3 times a day USE ONE S TRIP TO CHECK GLUCOSE 8h Active RESULTS No Results PROCEDURES No Known procedures INSTRUCTIONS MEDICATIONS ADMINISTERED No Known Medications MEDICAL (GENERAL) HISTORY Type Description Date Medical History type II diabetes Medical History anemia Surgical History Kindey stone removal- left 2016 Surgical History Right kindey removal Surgical History Back Surgical History Bladder repair Surgical History 04/09/1990 Surgical History 08/01/1993 Surgical History Colostomy 12/2016 Hospitalization History Sepsis-VC 01/15/17 Hospitalization History UTI-VC 09/18/16 Hospitalization History Colostomy 12/2016
--- OUTSIDE RECORDS SUMMARY | 2019-12-25 14:34 | XMS REPORT | Encounter Summary ---
Author Author [facility] Organization [facility] Address Unknown Phone Unavailable Care Team Providers Care Seismology Teacher Name Role Phone Pb Ibrahim MD Unavailable [...] Details Care Team Description Date Type Department 11/24/2019 [facility] [address] [address] Social History Date Tobacco Use [...] (GG)) 15 with billion cell cpSP breakfast. 10/19/2019 medroxyPROGESTERone every 24 0 (PROVERA) 10 mg tablet hours. metFORMIN (GLUCOPHAGE) Take 500 mg 0 500 [...] Associated Diag nosis US PELVIS EXTERNAL Routine 11/24/2019 IMAGING 12:00 AM CDT documented in this encounter Results * US PELVIS EXTERNAL IMAGING (11/24/2019 12:00 AM CDT) Specimen Narrative Performed At This order has been auto finalized and does not contain a result. 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
--- OUTSIDE RECORDS SUMMARY | 2019-12-25 14:34 | XMS REPORT | Encounter Summary ---
Author Author [facility] Organization [facility] Address Unknown Phone Unavailable Care Team Providers Care Bridge Inspector Name Role Phone Pb Ibrahim MD Unavailable [...] Care Team Description Date Type Department 10/02/2019 [facility] [address] [address] Social History Date Tobacco Use [...] PELVIS EXTERNAL Routine 10/02/2019 IMAGING 12:00 AM DENTAL SCHEDULER documented in this encounter Results * US PELVIS EXTERNAL IMAGING (10/02/2019 12:00 AM DENTAL SCHEDULER) Specimen Narrative Performed At This order has been auto finalized and does not contain a result. 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
--- OUTSIDE RECORDS SUMMARY | 2019-12-25 14:34 | XMS REPORT | Encounter Summary ---
Author Author [facility] Organization [facility] Address Unknown Phone Unavailable Care Team Providers Care Ent Nurse Name Role Phone Pb Ibrahim MD Unavailable [...] PCP Reason for Visit * Reason Comments Navigation Assessment Encounter Details Care Team Description Date Type Department Briana Maciel MD [address] [place] [address] Navigation Assessment 11/30/2019 Telephone [facility] [place] [address] [place] [address] Social History Date Tobacco Use Types Packs/Day [...] encounter Miscellaneous Notes * Telephone Encounter - Bernice Amato RN - 11/30/2019 1:02 PM CDT Navigation Intake Assessment Patient Name: Tam Lozano : 1970 Insurance: Medicare Direct Referral: No Appointment Info: Scheduled 12/22/19 @ 12:[address] Maciel Diagnosis & Reason for Visit: Bilateral ovarian masses, paraplegic, evaluate and treat. Physician Info: ? Referring Physician: Dr. Jamil Petty Contact Name & Number: Yesenia Menjivar @ [phone] PCP: Dr. Milo Jj Other: Urology: Dr. Milo Louis () Location of Films: PACS Location of Pathology: N/A History of Present Illness: Patient seen by SYSTEM SAFETY MANAGER on 10/02/19 for WWE. She had c/o v aginal bleeding for the past 2 months. SYSTEM SAFETY MANAGER exam WNL's Sonogram on 10/02/19 for abnormal uterine bleeding demonstrated: 1. Large roughly oval left adnexal fluid collection, possibly a large left ovari an/paraovarian cystic mass, measuring up to 7.3 cm. 2. Enlarged right ovary, containing a complex cyst that measures 5.8 cm in great est dimension. CA 125 on 10/19/19 was 34, CEA, 2.7. Pap smear 10/02/19 was negative. Repeat sonogram 11/24/19 demonstrated: Very limited exam with persistent unchanged cystic structure suspected in the le ft adnexa replacing the left ovary. This measures up to 5.9 cm which is similar to the previous exam. The complexity of this structure cannotbe ascertained from this study. Limited assessment of the uterus and right ovary as described above. Surgical Hx Surgery/Year: C- section x 2 08/01/1993 and 04/09/1990, Cryotherapy, LEEP at age [age]. Reproductive History Menstrual Hx LMP: Patient reports bleeding x 3 months from July through September but continu es to spot Having Periods: Yes Age at first period: 12 Hx Number of pregnancies: 3 Number of live births: 2 Age of first live : 19 Did you breastfeed: Yes If Yes, how long? 1 month with each child Oral Control: Yes Years: 6 years Infertility Medication: No Year/Med Name: Menopausal Hx Age of last period: N/A Hormone Replacement Therapy: No Years: Health Maintenence Last Pap: 10/02/2019 Abn History of Pap: Yes Colonoscopy: 7 years ago Mammogram: 02/2019 Bone scan: Denies DPOA: No Living Will: No documented in this encounter Plan of Treatment Not on filedocumented as of this encounter Visit Diagnoses Not on filedocumented in this encounter Additional Health Concerns Resolved Time Infection Noted Time MRSA 11/21/2015 3:59 PM CDT documented as of this encounter
--- OUTSIDE RECORDS SUMMARY | 2019-12-25 14:37 | XMS REPORT | Continuity of Care Document ---
Demographics Preferred Language Unknown Marital Status Unknown Catholic Affiliation Unknown Race Unknown Ethnic Group Unknown Author Organization Unknown Address Unknown Phone Unavailable Allergies Active Description Code Type Severity Reaction Onset Reported/Identified Relationship to Patient Clinical Status Yes latex [id number] Drug Allergy Severe N/A 04/02/2014 Yes ciprofloxacin [id number] Ubaldo g Allergy Mild N/A 04/02/2014 Yes hydrocodone [id number] Drug Aller gy Mild N/A 04/02/2014 Yes paroxetine [id number] Drug Allerg y Mild N/A 04/02/2014 Yes phenobarbital [id number] Ubaldo g Allergy Mild N/A 04/02/2014 Yes sulfamethoxazole [id number] Drug Allergy Mild N/A 04/02/2014 Yes trimethoprim [id number] Drug Allergy Mild N/A 04/02/2014 Yes oxycodone [id number] Drug Allergy Unknown RASH 12/31/2016 Medications There is no data. Problems Date Dx Coded Attending Type Code Diagnosis Diagnosed By 06/27/1314 YUSEF ROJAS, JUANA Ot Z01.81 8 ENCOUNTER FOR OTHER PREPROCEDURAL EXAMIN 04/02/2014 DAYTON EISENBERG MD Ot 596. 83 [...] JENN RAYCONCHITA Haddad 09/19/2015 Ot N39.0 09/23/2015 STEPHANIE ARRIOLA MD, Ot Z51.81 09/23/2015 STEPHANIE ARRIOLA MD Ot Z79.2 09/23/2015 Ot Z51.81 09/23/2015 Ot Z79.2 09/26/2015 Ot N39.0 09/27/2015 Ot N39.0 09/28/2015 Ot R31.9 10/04/2015 STEPHANIE ARRIOLA MD Ot Z51.81 10/04/2015 STEPHANIE ARRIOLA MD, Ot Z79.2 10/04/2015 Ot Z51.81 10/04/2015 Ot Z79.2 10/04/2015 STEPHANIE ARRIOLA MD Ot Z51.81 10/04/2015 STEPHANIE ARRIOLA MD, Ot Z79.2 10/04/2015 Ot Z51.81 10/04/2015 Ot Z79.2 10/10/2015 Ot R31.9 10/10/2015 Ot R31.9 03/13/2016 EDWARDO LAMB MD Ot N39 .0 URINARY TRACT INFECTION, SITE NOT SPECIF 03/30/2016 EDWARDO LAMB MD Ot N39 .0 URINARY TRACT INFECTION, SITE NOT SPECIF 09/08/2016 Ot N39.0 URIN UNRULY TRACT INFECTION, SITE NOT SPECIF 09/08/2016 STEPHANIE ARRIOLA MD, Ot Z51.81 ENCOUNTER FOR THERAPEUTIC DRUG LEVEL MON 09/08/2016 HANDSHY MD, STEPHANIE E Ot 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.2 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 09/08/2016 Ot Z51.81 [facility] 09/08/2016 Ot Z79.2 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 09/08/2016 Ot R31.9 LANCE TURIA, UNSPECIFIED 09/08/2016 ZAINAB ROJAS, EDWARDO Barrios Ot N39 .0 URINARY TRACT INFECTION, SITE NOT SPECIF 09/08/2016 CITLALY, LEE MEDICAL RECRUITER Ot E11.9 TYPE 2 DIABETES MELLITUS WITHOUT COMPLIC 09/08/2016 CITLALY, LEE MEDICAL RECRUITER Ot G82.20 PARAPLEGIA, UNSPECIFIED 09/08/2016 CITLALY, LEE MEDICAL RECRUITER Ot N39.0 URINARY TRACT INFECTION, SITE NOT SPECIF 09/08/2016 CITLALY, LEE MEDICAL RECRUITER Ot Z79.84 CONTRACTS SPECIALIST (CURRENT) USE OF ORAL HYPOGLYC 09/08/2016 CITLALY, LEE MEDICAL RECRUITER Ot Z79.899 OTHER CONTRACTS SPECIALIST (CURRENT) DRUG THERAPY 09/08/2016 CITLALY, LEE MEDICAL RECRUITER Ot Z93.50 UNSPECIFIED CYSTOSTOMY STATUS 09/11/2016 CITLALY, LEE MEDICAL RECRUITER Ot E11.9 TYPE 2 DIABETES MELLITUS WITHOUT COMPLIC 09/11/2016 CITLALY, LEE MEDICAL RECRUITER Ot G82.20 PARAPLEGIA, UNSPECIFIED 09/11/2016 CITLALY, LEE MEDICAL RECRUITER Ot N39.0 URINARY TRACT INFECTION, SITE NOT SPECIF 09/11/2016 CITLALY, LEE MEDICAL RECRUITER Ot Z79.84 CONTRACTS SPECIALIST (CURRENT) USE OF ORAL HYPOGLYC 09/11/2016 CITLALY, LEE MEDICAL RECRUITER Ot Z79.899 OTHER LONG-TERM (CURRENT) DRUG THERAPY 09/11/2016 CITLALY, LEE MEDICAL RECRUITER Ot Z93.50 UNSPECIFIED CYSTOSTOMY STATUS 09/14/2016 CITLALY, LEE MEDICAL RECRUITER Ot E11.9 TYPE 2 DIABETES MELLITUS WITHOUT COMPLIC 09/14/2016 CITLALY, LEE MEDICAL RECRUITER Ot G82.20 PARAPLEGIA, UNSPECIFIED 09/14/2016 CITLALY, LEE MEDICAL RECRUITER Ot N39.0 URINARY TRACT INFECTION, SITE NOT SPECIF 09/14/2016 CITLALY, LEE MEDICAL RECRUITER Ot Z79.84 CONTRACTS SPECIALIST (CURRENT) USE OF ORAL HYPOGLYC 09/14/2016 CITLALY, LEE MEDICAL RECRUITER Ot Z79.899 OTHER LONG-TERM (CURRENT) DRUG THERAPY 09/14/2016 CITLALY, LEE MEDICAL RECRUITER Ot Z93.50 UNSPECIFIED CYSTOSTOMY STATUS 09/21/2016 LEON SOLIS MD Ot E11 .9 TYPE 2 DIABETES MELLITUS WITHOUT COMPLIC 09/21/2016 LEON SOLIS MD Ot E66 .9 OBESITY, UNSPECIFIED 09/21/2016 LEON SOLIS MD Ot G82.20 PARAPLEGIA, UNSPECIFIED 09/21/2016 LEON SOLIS MD Ot K59 .9 FUNCTIONAL INTESTINAL DISORDER, UNSPECIF 09/21/2016 LEON SOLIS MD Ot L30 .4 ERYTHEMA INTERTRIGO 09/21/2016 LEON SOLIS MD Ot L89.152 PRESSURE ULCER OF SACRAL REGION, STAGE 2 09/21/2016 LEON SOLIS MD Ot N39 .0 URINARY TRACT INFECTION, SITE NOT SPECIF 09/21/2016 LEON SOILS MD Ot N99.531 INFECTION OF CONTINENT STOMA OF URINARY 09/21/2016 LEON SOLIS MD Ot R19 .7 DIARRHEA, UNSPECIFIED 09/21/2016 LEON SOLIS MD Ot Z68.28 BODY MASS INDEX (BMI) 28.0-28.9, ADULT 09/21/2016 LEON SOLIS MD Ot Z79 .4 LONG-TERM (CURRENT) USE OF INSULIN 09/21/2016 LEON SOLIS MD Ot Z85.42 PERSONAL HISTORY OF MALIGNANT NEOPLASM O 09/21/2016 LEON SOLIS MD Ot Z87.828 PERSONAL HISTORY OF OTH (HEALED) PHYSICA 09/21/2016 LEON SOLIS MD Ot Z90 .5 ACQUIRED ABSENCE OF KIDNEY 09/21/2016 LEON SOLIS MD Ot Z93 .9 ARTIFICIAL OPENING STATUS, UNSPECIFIED 09/24/2016 MICHELINE PINO BLAIRE Ot E11.9 TYPE 2 DIABETES MELLITUS WITHOUT COMPLIC 09/24/2016 MICHELINE PINO BLAIRE Ot G82.20 PARAPLEGIA, UNSPECIFIED 09/24/2016 MIKE TOBIAS DOI Ot L89.15 2 PRESSURE ULCER OF SACRAL REGION, STAGE 2 09/24/2016 MICHELINE PINO BLAIRE Ot N39.0 URINARY TRACT INFECTION, SITE NOT SPECIF 09/24/2016 MICHELINE PINO BLAIRE Ot N99.53 1 INFECTION OF CONTINENT STOMA OF URINARY 09/24/2016 MICHELINE PINO BLAIRE Ot 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 09/24/2016 BLAIRE TOBIAS DO Ot Z79.84 CONTRACTS SPECIALIST (CURRENT) USE OF ORAL HYPOGLYC 09/24/2016 BLAIRE [...] URINARY TRACT INFECTION, SITE NOT SPECIF 11/07/2016 EDAWRDO MCCRAY MD Ot N39 .0 URINARY TRACT INFECTION, SITE NOT SPECIF 11/26/2016 EDWARDO MCCRAY MD Ot N39 .0 URINARY TRACT INFECTION, SITE NOT SPECIF 12/03/2016 EDWARDO MCCRAY MD, Ot N39 .0 URINARY TRACT INFECTION, SITE NOT SPECIF 12/28/2016 Ot N39.0 URIN UNRULY TRACT INFECTION, SITE NOT SPECIF 12/28/2016 STEPHANIE ARRIOLA MD, Ot Z51.81 ENCOUNTER FOR THERAPEUTIC DRUG LEVEL MON 12/28/2016 STEPHANIE ARRIOLA MD Ot Z79.2 LONG-TERM (CURRENT) USE OF ANTIBIOTICS 12/28/2016 Ot Z51.81 ENC OUNTER FOR THERAPEUTIC DRUG LEVEL MON 12/28/2016 Ot Z79.2 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 12/28/2016 Ot R31.9 [...] ENCOUNTER FOR THERAPEUTIC DRUG LEVEL MON 12/31/2016 ZEINAB ROJAS STEPHANIE Reagan Ot Z79.2 LONG-TERM (CURRENT) USE OF ANTIBIOTICS 12/31/2016 Ot Z51.81 ENC OUNTER FOR THERAPEUTIC DRUG LEVEL MON 12/31/2016 Ot Z79.2 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 12/31/2016 Ot R31.9 LANCE TURIA, UNSPECIFIED 12/31/2016 ZAINAB ROJAS, EDWARDO Barrios Ot N39 .0 URINARY TRACT INFECTION, SITE NOT SPECIF 12/31/2016 EDWARDO MCCRAY MD Ot N39 .0 URINARY TRACT INFECTION, SITE NOT SPECIF 12/31/2016 EDWARDO MCCRAY MD Ot N39 .0 URINARY TRACT INFECTION, SITE NOT SPECIF 12/31/2016 EDWARDO MCCRAY MD Ot N39 .0 URINARY TRACT INFECTION, SITE NOT SPECIF 12/31/2016 KIRBY CEVALLOS DO Ot G82.2 0 PARAPLEGIA, UNSPECIFIED 12/31/2016 KIRBY CEVALLOS DO B Ot L89.1 59 PRESSURE ULCER OF SACRAL REGION, UNSPECI 12/31/2016 KIRBY CEVALLOS DO B Ot Z01.8 12 ENCOUNTER FOR PREPROCEDURAL LABORATORY E 12/31/2016 KIRBY CEVALLOS DO B Ot Z11.2 ENCOUNTER FOR SCREENING FOR OTHER BACTER 01/06/2017 KIRBY CEVALLOS DO B Ot E11.9 TYPE 2 DIABETES MELLITUS WITHOUT COMPLIC 01/06/2017 KIRBY CEVALLOS DO B Ot G82.2 0 PARAPLEGIA, UNSPECIFIED 01/06/2017 JACQUE CEVALLOS DOIC B Ot L89.1 59 PRESSURE ULCER OF SACRAL REGION, UNSPECI 01/06/2017 KIRBY CEVALLOS DO B Ot R19.7 DIARRHEA, UNSPECIFIED 01/06/2017 JACQUE CEVALLOS DOIC B Ot S24.102S UNSP INJURY AT T2-T6 LEVEL OF THORACIC S 01/06/2017 KIRBY CEVALLOS DO B Ot Z79.8 4 LONG-TERM (CURRENT) USE OF ORAL HYPOGLYC 01/06/2017 KIRBY CEVALLOS DO B Ot Z90.5 ACQUIRED ABSENCE OF KIDNEY [...] SPECIF 01/18/2017 GERALD CRYSTAL MD Ot Z79.4 LONG-TERM (CURRENT) USE OF INSULIN 01/18/2017 GERALD CRYSTAL [...] TRACT INFECTION, SITE NOT SPECIF 03/15/2017 CACHORRO HART, BEKA D Ot N20.0 CALCULUS OF KIDNEY 03/15/2017 CACHORRO HART, BEKA D Ot N28.1 CYST OF KIDNEY, ACQUIRED 03/15/2017 LELA DOTYICE D Ot N30.9 1 CYSTITIS, UNSPECIFIED WITH HEMATURIA 03/15/2017 BEKA DOTY D Ot Z90.5 ACQUIRED ABSENCE OF KIDNEY 03/25/2017 CACHORRO HART, BEKA D Ot N20.0 CALCULUS OF KIDNEY 03/25/2017 CACHORRO HART BEKA D Ot N28.1 CYST OF KIDNEY, ACQUIRED 03/25/2017 CACHORRO HART, BEKA D Ot N30.9 1 CYSTITIS, UNSPECIFIED WITH HEMATURIA 03/25/2017 LELA DOTYICE D Ot Z90.5 ACQUIRED ABSENCE OF KIDNEY 04/05/2017 CACHORRO HART, BEKA D Ot N20.0 CALCULUS OF KIDNEY 04/05/2017 CACHORRO HART BEKA D Ot N28.1 CYST OF KIDNEY, ACQUIRED 04/05/2017 CACHORRO HART BEKA D Ot N30.9 1 CYSTITIS, UNSPECIFIED WITH HEMATURIA 04/05/2017 BEKA DOTY Ot Z90.5 ACQUIRED ABSENCE OF KIDNEY 04/12/2017 BEKA DOTY Ot N20.0 CALCULUS OF KIDNEY 04/12/2017 BEKA DOTY Ot N28.1 CYST OF KIDNEY, ACQUIRED 04/12/2017 BEKA DOTY Ot N30.9 1 CYSTITIS, UNSPECIFIED WITH HEMATURIA 04/12/2017 BEKA DOTY Ot Z90.5 ACQUIRED ABSENCE OF KIDNEY 07/05/2017 LINSEY ADEOLA R MDM DEVELOPER Ot B37.89 OTHER SITES OF CANDIDIASIS 07/05/2017 LINSEY ADEOLA R MDM DEVELOPER Ot L89.133 PRESSURE ULCER OF RIGHT LOWER BACK, STAG 07/25/2017 LINSEY, ADEOLA R MDM DEVELOPER Ot B37.89 OTHER SITES OF CANDIDIASIS 07/25/2017 LINSEY, ADEOLA R MDM DEVELOPER Ot L89.133 PRESSURE ULCER OF RIGHT LOWER BACK, STAG 08/08/2017 LINSEY, ADEOLA R MDM DEVELOPER Ot B37.89 OTHER SITES OF CANDIDIASIS 08/08/2017 LINSEY, ADEOLA R MDM DEVELOPER Ot L89.133 PRESSURE ULCER OF RIGHT LOWER BACK, STAG 08/13/2017 LINSEY, ADEOLA R MDM DEVELOPER Ot B37.89 OTHER SITES OF CANDIDIASIS 08/13/2017 LINSEY, ADEOLA R MDM DEVELOPER Ot L89.133 PRESSURE ULCER OF RIGHT LOWER BACK, STAG 08/28/2017 LINSEY, ADEOLA R MDM DEVELOPER Ot B37.89 OTHER SITES OF CANDIDIASIS 08/28/2017 LINSEY, ADEOLA R MDM DEVELOPER Ot L89.133 PRESSURE ULCER OF RIGHT LOWER BACK, STAG 09/29/2017 LEE BOUCHER Ot E11.9 TYPE 2 DIABETES MELLITUS WITHOUT COMPLIC 09/29/2017 LEE BOUCHER Ot N39.0 URINARY TRACT INFECTION, SITE NOT SPECIF 09/29/2017 LEE BOUCHER Ot R42 DIZZINESS AND GIDDINESS 09/29/2017 LEE BOUCHER Ot 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 09/29/2017 LEE BOCUHER Ot Z85.42 PERSONAL HISTORY OF MALIGNANT NEOPLASM O 09/29/2017 LEE BOUCHER Ot Z87.442 PERSONAL HISTORY OF URINARY CALCULI 09/29/2017 LEE BOUCHER Ot Z87.59 PERSONAL HISTORY OF COMP OF PREG, CHLDBR 09/29/2017 CITLALY, LEE MEDICAL RECRUITER Ot Z87.828 PERSONAL HISTORY OF OTH (HEALED) PHYSICA 09/29/2017 CITLALY, LEE MEDICAL RECRUITER Ot Z88.1 ALLERGY STATUS TO OTHER ANTIBIOTIC AGENT 09/29/2017 CITLALY, LEE MEDICAL RECRUITER Ot Z88.2 ALLERGY STATUS TO SULFONAMIDES STATUS 09/29/2017 CITLALY, LEE MEDICAL RECRUITER Ot Z88.6 ALLERGY STATUS TO ANALGESIC AGENT STATUS 09/29/2017 CITLALY, LEE MEDICAL RECRUITER Ot Z91.040 LATEX ALLERGY STATUS 10/01/2017 CITLALY, LEE MEDICAL RECRUITER Ot E11.9 TYPE 2 DIABETES MELLITUS WITHOUT COMPLIC 10/01/2017 CITLALY, LEE MEDICAL RECRUITER Ot N39.0 URINARY TRACT INFECTION, SITE NOT SPECIF 10/01/2017 CITLALY LEE MEDICAL RECRUITER Ot R42 DIZZINESS AND GIDDINESS 10/01/2017 CITLALY, LEE MEDICAL RECRUITER Ot Z79.4 LONG-TERM (CURRENT) USE OF INSULIN 10/01/2017 CITLALY, LEE MEDICAL RECRUITER Ot Z85.42 PERSONAL HISTORY OF MALIGNANT NEOPLASM O 10/01/2017 CITLALY LEE MEDICAL RECRUITER Ot Z87.442 PERSONAL HISTORY OF URINARY CALCULI 10/01/2017 CITLALY, LEE MEDICAL RECRUITER Ot Z87.59 PERSONAL HISTORY OF COMP OF PREG, CHLDBR 10/01/2017 CITLALY, LEE MEDICAL RECRUITER Ot Z87.828 PERSONAL HISTORY OF OTH (HEALED) PHYSICA 10/01/2017 CITLALY, LEE MEDICAL RECRUITER Ot Z88.1 ALLERGY STATUS TO OTHER ANTIBIOTIC AGENT 10/01/2017 CITLALY, LEE MEDICAL RECRUITER Ot Z88.2 ALLERGY STATUS TO SULFONAMIDES STATUS 10/01/2017 CITLALY, LEE MEDICAL RECRUITER Ot Z88.6 ALLERGY STATUS TO ANALGESIC AGENT STATUS 10/01/2017 CITLALY, LEE MEDICAL RECRUITER Ot Z91.040 LATEX ALLERGY STATUS 03/24/2019 Ot N39.0 URIN UNRULY TRACT INFECTION, SITE NOT SPECIF 03/24/2019 STEPHANIE ARRIOLA MD Ot Z51.81 ENCOUNTER FOR THERAPEUTIC DRUG LEVEL MON 03/24/2019 STEPHANIE ARRIOLA MD Ot Z79.2 LONG-TERM (CURRENT) USE OF ANTIBIOTICS 03/24/2019 Ot Z51.81 ENC OUNTER FOR THERAPEUTIC DRUG LEVEL Sat03/24/2019 Ot Z79.2 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 03/24/2019 Ot R31.9 LANCE TURIA, UNSPECIFIED 03/24/2019 ZAINAB ROJAS, EDWARDO Barrios Ot N39 .0 [...] ACQUIRED ABSENCE OF KIDNEY 03/24/2019 ADEOLA STILES MDM DEVELOPER Ot B37.89 OTHER SITES OF CANDIDIASIS 03/24/2019 ADEOLA STILES MDM DEVELOPER Ot L89.133 PRESSURE ULCER OF RIGHT LOWER BACK, STAG 03/24/2019 ADEOLA STILES MDM DEVELOPER Ot B37.89 OTHER SITES OF CANDIDIASIS 03/24/2019 ADEOLA STILES MDM DEVELOPER Ot L89.133 PRESSURE ULCER OF RIGHT LOWER BACK, STAG 03/24/2019 EDWARDO MCCRAY MD Ot Z12.31 ENCNTR SCREEN MAMMOGRAM FOR MALIGNANT NE 03/24/2019 EDWARDO MCCRAY MD Ot Z12.31 ENCNTR SCREEN MAMMOGRAM FOR MALIGNANT NE 04/05/2019 LEE BOUCHER Ot E11.9 TYPE 2 DIABETES MELLITUS WITHOUT COMPLIC 04/05/2019 LEE BOUCHER Ot S81.811A LACERATION W/O FOREIGN BODY, RIGHT LOWER 04/05/2019 LEE BOUCHER Ot W26.8XXA CONTACT WITH OTHER SHARP OBJECT(S), NEC, 04/05/2019 LEE BOUCHER Ot 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 04/05/2019 LEE BOUCHER Ot Z85.42 PERSONAL HISTORY OF MALIGNANT NEOPLASM O 04/05/2019 LEE BOUCHER Ot Z87.19 PERSONAL HISTORY OF OTHER DISEASES OF TH 04/05/2019 LEE BOUCHER Ot Z87.442 PERSONAL HISTORY OF URINARY CALCULI 04/05/2019 CITLALYLEE Reagan MEDICAL RECRUITER Ot Z88.1 ALLERGY STATUS TO OTHER ANTIBIOTIC AGENT 04/05/2019 CITLALY, LEE MEDICAL RECRUITER Ot Z88.2 ALLERGY STATUS TO SULFONAMIDES STATUS 04/05/2019 CITLALY, LEE MEDICAL RECRUITER Ot Z88.5 ALLERGY STATUS TO NARCOTIC AGENT STATUS 04/05/2019 CITLALY, LEE MEDICAL RECRUITER Ot Z88.8 ALLERGY STATUS TO OTH DRUG/MEDS/BIOL SUB 04/05/2019 CITLALY, LEE MEDICAL RECRUITER Ot Z91.040 LATEX ALLERGY STATUS 04/05/2019 CITLALY, LEE MEDICAL RECRUITER Ot Z93.3 COLOSTOMY STATUS 04/09/2019 CITLALY, LEE MEDICAL RECRUITER Ot E11.9 TYPE 2 DIABETES MELLITUS WITHOUT COMPLIC 04/09/2019 CITLALY, LEE MEDICAL RECRUITER Ot S81.811A LACERATION W/O FOREIGN BODY, RIGHT LOWER 04/09/2019 CITLALY, LEE MEDICAL RECRUITER Ot W26.8XXA CONTACT WITH OTHER SHARP OBJECT(S), NEC, 04/09/2019 CITLALY, LEE MEDICAL RECRUITER Ot Z79.4 LONG-TERM (CURRENT) USE OF INSULIN 04/09/2019 CITLALY, LEE MEDICAL RECRUITER Ot Z85.42 PERSONAL HISTORY OF MALIGNANT NEOPLASM O 04/09/2019 CITLALY, LEE MEDICAL RECRUITER Ot Z87.19 PERSONAL HISTORY OF OTHER DISEASES OF TH 04/09/2019 CITLALY, LEE MEDICAL RECRUITER Ot Z87.442 PERSONAL HISTORY OF URINARY CALCULI 04/09/2019 CITLALY, LEE MEDICAL RECRUITER Ot Z88.1 ALLERGY STATUS TO OTHER ANTIBIOTIC AGENT 04/09/2019 CITLALY, LEE MEDICAL RECRUITER Ot Z88.2 ALLERGY STATUS TO SULFONAMIDES STATUS 04/09/2019 CITLALY, LEE MEDICAL RECRUITER Ot Z88.5 ALLERGY STATUS TO NARCOTIC AGENT STATUS 04/09/2019 CITLALY, LEE MEDICAL RECRUITER Ot Z88.8 ALLERGY STATUS TO OTH DRUG/MEDS/BIOL SUB 04/09/2019 CITLALY, LEE MEDICAL RECRUITER Ot Z91.040 LATEX ALLERGY STATUS 04/09/2019 CITLALY, LEE MEDICAL RECRUITER Ot Z93.3 COLOSTOMY STATUS 04/16/2019 MAHENDRA ROJAS, EDWARDO Nelson Ot Z12.31 ENCNTR SCREEN MAMMOGRAM FOR MALIGNANT NE 11/13/2019 Ot N39.0 URIN UNRULY TRACT INFECTION, SITE NOT SPECIF 11/13/2019 ZEINAB ROJAS, STEPHANIE Reagan Ot Z51.81 ENCOUNTER FOR THERAPEUTIC DRUG LEVEL MON 11/13/2019 ZEINAB ROJAS, STEPHANIE Reagan Ot Z79.2 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 11/13/2019 Ot Z51.81 ENC OUNTER FOR THERAPEUTIC DRUG LEVEL MON 11/13/2019 Ot Z79.2 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 11/13/2019 Ot R31.9 LANCE TURIA, UNSPECIFIED 11/13/2019 ZAINAB ROJAS, EDWARDO Barrios Ot N39 .0 URINARY TRACT INFECTION, SITE NOT SPECIF 11/13/2019 MAHENDRA ROJAS, EDWARDO Nelson Ot N39 .0 URINARY TRACT INFECTION, SITE NOT SPECIF 11/13/2019 MAHENDRA ROJAS, EDWARDO Nelson Ot N39 .0 URINARY TRACT INFECTION, SITE NOT SPECIF 11/13/2019 MAHENDRA ROJAS, EDWARDO Nelson Ot N39 .0 URINARY TRACT INFECTION, SITE NOT SPECIF 11/13/2019 BEKA DOTY Ot N20.0 CALCULUS OF KIDNEY 11/13/2019 BEKA DOTY Ot N28.1 CYST OF KIDNEY, ACQUIRED 11/13/2019 BEKA DOTY Ot N30.9 1 CYSTITIS, UNSPECIFIED WITH HEMATURIA 11/13/2019 BEKA DOTY Ot Z90.5 ACQUIRED ABSENCE OF KIDNEY 11/13/2019 ADEOLA STILES MDM DEVELOPER Ot B37.89 OTHER SITES OF CANDIDIASIS 11/13/2019 AEDOLA STILES MDM DEVELOPER Ot L89.133 PRESSURE ULCER OF RIGHT LOWER BACK, STAG 11/13/2019 ADEOLA STILES MDM DEVELOPER Ot B37.89 OTHER SITES OF CANDIDIASIS 11/13/2019 ADEOLA STILES MDM DEVELOPER Ot L89.133 PRESSURE ULCER OF RIGHT LOWER BACK, STAG 11/13/2019 EDWARDO MCCRAY MD Ot Z12.31 ENCNTR SCREEN MAMMOGRAM FOR MALIGNANT NE 11/13/2019 GERALD CRYSTAL MD Ot A41.9 SEPSIS, UNSPECIFIED ORGANISM 11/13/2019 GERALD CRYSTAL MD Ot C55 MALIGNANT NEOPLASM OF UTERUS, PART UNSPE 11/13/2019 GERALD CRYSTAL MD Ot 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 UNSPECIFIED OVARY 11/13/2019 GERALD CRYSTAL MD Ot D50.9 IRON DEFICIENCY ANEMIA, UNSPECIFIED 11/13/2019 GERALD CRYSTAL MD Ot E11.6 5 TYPE 2 DIABETES MELLITUS WITH HYPERGLYCE 11/13/2019 GERALD CRYSTAL MD R Ot G82.2 2 PARAPLEGIA, INCOMPLETE 11/13/2019 GERALD CRYSTAL MD Ot I10 ESSENTIAL (PRIMARY) HYPERTENSION 11/13/2019 GERALD CRYSTAL MD Ot N39.0 URINARY TRACT INFECTION, SITE NOT SPECIF 11/13/2019 GERALD CRYSTAL MD Ot N93.9 ABNORMAL UTERINE AND VAGINAL BLEEDING, U 11/13/2019 GERALD CRYSTAL MD Ot S24.102S UNSP INJURY AT T2-T6 LEVEL OF THORACIC S 11/13/2019 GERALD CRYSTAL MD R Ot V99.XXXS UNSPECIFIED TRANSPORT ACCIDENT, SEQUELA 11/13/2019 GERALD CRYSTAL MD Ot 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 11/13/2019 GERALD CRYSTAL MD Ot Z90.5 ACQUIRED ABSENCE OF KIDNEY 11/13/2019 GERALD CRYSTAL MD Ot Z93.3 COLOSTOMY STATUS 11/13/2019 GERALD CRYSTAL MD Ot Z99.3 DEPENDENCE ON WHEELCHAIR 11/13/2019 GERALD CRYSTAL MD R Ot A41.9 SEPSIS, UNSPECIFIED ORGANISM 11/13/2019 GERALD CRYSTAL MD R Ot C55 MALIGNANT NEOPLASM OF UTERUS, PART UNSPE 11/13/2019 GERALD CRYSTAL MD Ot 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 UNSPECIFIED OVARY 11/13/2019 GERALD CRYSTAL MD Ot D50.9 IRON DEFICIENCY ANEMIA, UNSPECIFIED 11/13/2019 GERALD CRYSTAL MD R Ot E11.6 5 TYPE 2 DIABETES MELLITUS WITH HYPERGLYCE 11/13/2019 GERALD CRYSTAL MD R Ot G82.2 2 PARAPLEGIA, INCOMPLETE 11/13/2019 GERALD CRYSTAL MD Ot I10 ESSENTIAL (PRIMARY) HYPERTENSION 11/13/2019 GERALD CRYSTAL MD Ot N39.0 URINARY TRACT INFECTION, SITE NOT SPECIF 11/13/2019 GERALD CRYSTAL MD Ot N93.9 ABNORMAL UTERINE AND VAGINAL BLEEDING, U 11/13/2019 GERALD CRYSTAL MD Ot S24.102S UNSP INJURY AT T2-T6 LEVEL OF THORACIC S 11/13/2019 GERALD CRYSTAL MD Ot V99.XXXS UNSPECIFIED TRANSPORT ACCIDENT, SEQUELA 11/13/2019 GERALD CRYSTAL MD Ot 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 11/13/2019 GERALD CRYSTAL MD Ot Z90.5 ACQUIRED ABSENCE OF KIDNEY 11/13/2019 GERALD CRYSTAL MD Ot Z93.3 COLOSTOMY STATUS 11/13/2019 GERALD CRYSTAL MD Ot Z99.3 DEPENDENCE ON WHEELCHAIR 11/13/2019 GERALD CRYSTAL MD Ot A41.9 SEPSIS, UNSPECIFIED ORGANISM 11/13/2019 GERALD CRYSTAL MD Ot C55 MALIGNANT NEOPLASM OF UTERUS, PART UNSPE 11/13/2019 GERALD CRYSTAL MD Ot 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 UNSPECIFIED OVARY 11/13/2019 GERALD CRYSTAL MD Ot D50.9 IRON DEFICIENCY ANEMIA, UNSPECIFIED 11/13/2019 GERALD CRYSTAL MD Ot E11.6 5 TYPE 2 DIABETES MELLITUS WITH HYPERGLYCE 11/13/2019 GERALD CRYSTAL MD Ot G82.2 2 PARAPLEGIA, INCOMPLETE 11/13/2019 GERALD CRYSTAL MD Ot I10 ESSENTIAL (PRIMARY) HYPERTENSION 11/13/2019 GERALD CRYSTAL MD Ot N39.0 URINARY TRACT INFECTION, SITE NOT SPECIF 11/13/2019 GERALD CRYSTAL MD Ot N93.9 ABNORMAL UTERINE AND VAGINAL BLEEDING, U 11/13/2019 GERALD CRYSTAL MD Ot S24.102S UNSP INJURY AT T2-T6 LEVEL OF THORACIC S 11/13/2019 GERALD CRYSTAL MD Ot V99.XXXS UNSPECIFIED TRANSPORT ACCIDENT, SEQUELA 11/13/2019 GERALD CRYSTAL MD Ot 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 11/13/2019 GERALD CRYSTAL MD Ot Z90.5 ACQUIRED ABSENCE OF KIDNEY 11/13/2019 GERALD CRYSTAL MD Ot Z93.3 COLOSTOMY STATUS 11/13/2019 GERALD CRYSTAL MD Ot Z99.3 DEPENDENCE ON WHEELCHAIR 11/14/2019 GERALD CRYSTAL MD Ot A41.9 SEPSIS, UNSPECIFIED ORGANISM 11/14/2019 GERALD CRYSTAL MD Ot C55 MALIGNANT NEOPLASM OF UTERUS, PART UNSPE 11/14/2019 GERALD CRYSTAL MD Ot 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 UNSPECIFIED OVARY 11/14/2019 GERALD CRYSTAL MD Ot D50.9 IRON DEFICIENCY ANEMIA, UNSPECIFIED 11/14/2019 GERALD CRYSTAL MD Ot E11.6 5 TYPE 2 DIABETES MELLITUS WITH HYPERGLYCE 11/14/2019 GERALD CRYSTAL MD Ot G82.2 2 PARAPLEGIA, INCOMPLETE 11/14/2019 GERALD CRYSTAL MD Ot I10 ESSENTIAL (PRIMARY) HYPERTENSION 11/14/2019 GERALD CRYSTAL MD Ot N39.0 URINARY TRACT INFECTION, SITE NOT SPECIF 11/14/2019 GERALD CRYSTAL MD Ot N93.9 ABNORMAL UTERINE AND VAGINAL BLEEDING, U 11/14/2019 GERALD CRYSTAL MD Ot S24.102S UNSP INJURY AT T2-T6 LEVEL OF THORACIC S 11/14/2019 GERALD CRYSTAL MD Ot V99.XXXS UNSPECIFIED TRANSPORT ACCIDENT, SEQUELA 11/14/2019 GERALD CRYSTAL MD Ot 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 11/14/2019 GERALD CRYSTAL MD Ot Z90.5 ACQUIRED ABSENCE OF KIDNEY 11/14/2019 GERALD CRYSTAL MD Ot Z93.3 COLOSTOMY STATUS 11/14/2019 GERALD CRYSTAL MD Ot Z99.3 DEPENDENCE ON WHEELCHAIR 11/15/2019 GERALD CRYSTAL MD Ot A41.9 SEPSIS, UNSPECIFIED ORGANISM 11/15/2019 GERALD CRYSTAL MD Ot C55 MALIGNANT NEOPLASM OF UTERUS, PART UNSPE 11/15/2019 GERALD CRYSTAL MD Ot 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 UNSPECIFIED OVARY 11/15/2019 GERALD CRYSTAL MD Ot D50.9 IRON DEFICIENCY ANEMIA, UNSPECIFIED 11/15/2019 GERALD CRYSTAL MD Ot E11.6 5 TYPE 2 DIABETES MELLITUS WITH HYPERGLYCE 11/15/2019 GERALD CRYSTAL MD Ot G82.2 2 PARAPLEGIA, INCOMPLETE 11/15/2019 GERALD CRYSTAL MD Ot I10 ESSENTIAL (PRIMARY) HYPERTENSION 11/15/2019 GERALD CRYSTAL MD Ot N39.0 URINARY TRACT INFECTION, SITE NOT SPECIF 11/15/2019 GERALD CRYSTAL MD Ot N93.9 ABNORMAL UTERINE AND VAGINAL BLEEDING, U 11/15/2019 GERALD CRYSTAL MD Ot S24.102S UNSP INJURY AT T2-T6 LEVEL OF THORACIC S 11/15/2019 GERALD CRYSTAL MD Ot V99.XXXS UNSPECIFIED TRANSPORT ACCIDENT, SEQUELA 11/15/2019 GERALD CRYSTAL MD, Ot Z79.4 LONG-TERM (CURRENT) USE OF INSULIN 11/15/2019 GERALD CRYSTAL MD Ot Z90.5 ACQUIRED ABSENCE OF KIDNEY 11/15/2019 GERALD CRYSTAL MD Ot Z93.3 COLOSTOMY STATUS 11/15/2019 GERALD CRYSTAL MD Ot Z99.3 DEPENDENCE ON WHEELCHAIR 11/16/2019 GERALD CRYSTAL MD Ot A41.9 SEPSIS, UNSPECIFIED ORGANISM 11/16/2019 GERALD CRYSTAL MD Ot C55 MALIGNANT NEOPLASM OF UTERUS, PART UNSPE 11/16/2019 GERALD CRYSTAL MD Ot 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 UNSPECIFIED OVARY 11/16/2019 GERALD CRYSTAL MD Ot D50.9 IRON DEFICIENCY ANEMIA, UNSPECIFIED 11/16/2019 GERALD CRYSTAL MD Ot E11.1 0 TYPE 2 DIABETES MELLITUS WITH KETOACIDOS 11/16/2019 GERALD CRYSTAL MD Ot 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 11/16/2019 GERALD CRYSTAL MD Ot E83.4 2 HYPOMAGNESEMIA 11/16/2019 GERALD CRYSTAL MD Ot E87.2 ACIDOSIS 11/16/2019 GERALD CRYSTAL MD Ot G82.2 2 PARAPLEGIA, INCOMPLETE 11/16/2019 GERALD CRYSTAL MD Ot I10 ESSENTIAL (PRIMARY) HYPERTENSION 11/16/2019 GERALD CRYSTAL MD Ot N39.0 URINARY TRACT INFECTION, SITE NOT SPECIF 11/16/2019 GERALD CRYSTAL MD Ot N93.9 ABNORMAL UTERINE AND VAGINAL BLEEDING, U 11/16/2019 GERALD CRYSTAL MD Ot S24.102S UNSP INJURY AT T2-T6 LEVEL OF THORACIC S 11/16/2019 GERALD CRYSTAL MD Ot T83.518A I/I REACT D/T OTHER URINARY CATHETER, IN 11/16/2019 GERALD CRYSTAL MD, Ot V99.XXXS UNSPECIFIED TRANSPORT ACCIDENT, SEQUELA 11/16/2019 GERALD CRYSTAL MD, Ot 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 11/16/2019 GERALD CRYSTAL MD, Ot Z90.5 ACQUIRED ABSENCE OF KIDNEY 11/16/2019 GERALD CRYSTAL MD Ot Z93.3 COLOSTOMY STATUS 11/16/2019 GERALD CRYSTAL MD, Ot Z99.3 DEPENDENCE ON WHEELCHAIR 11/21/2019 MIGNON PINO CHRISTIAN K Ot D62 ACUTE POSTHEMORRHAGIC ANEMIA 11/24/2019 CROW DO CHRISTIAN K Ot D62 ACUTE POSTHEMORRHAGIC ANEMIA 11/26/2019 JUANA HOLBROOK MD, Ot 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 11/26/2019 JUANA HOLBROOK MD, Ot E11.10 TYPE 2 DIABETES MELLITUS WITH KETOACIDOS 11/26/2019 JUANA HOLBROOK MD, Ot E78.5 HYPERLIPIDEMIA, UNSPECIFIED 11/26/2019 JUANA HOLBROOK MD, Ot G82.20 PARAPLEGIA, UNSPECIFIED 11/26/2019 JUANA HOLBROOK MD, Ot I87.2 VENOUS INSUFFICIENCY (CHRONIC) (PERIPHER 11/26/2019 JUANA HOLBROOK MD, Ot N39.0 URINARY TRACT INFECTION, SITE NOT SPECIF 11/26/2019 JUANA HOLBROOK MD, Ot 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 11/26/2019 JUANA HOLBROOK MD, Ot 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 11/26/2019 JUANA HOLBROOK MD, Ot Z79.89 9 OTHER LONG-TERM (CURRENT) DRUG THERAPY 11/26/2019 JUANA HOLBROOK MD, Ot Z80.3 FAMILY HISTORY OF MALIGNANT NEOPLASM OF 11/26/2019 JUANA HOLBROOK MD, Ot Z80.42 FAMILY HISTORY OF MALIGNANT NEOPLASM OF 11/26/2019 JUANA HOLBROOK MD, Ot Z82.49 FAMILY HX OF ISCHEM HEART DIS AND OTH DI 11/26/2019 JUANA HOLBROOK MD, Ot Z88.1 ALLERGY STATUS TO OTHER ANTIBIOTIC AGENT 11/26/2019 JUANA HOLBROOK MD, Ot Z88.2 ALLERGY STATUS TO SULFONAMIDES STATUS 11/26/2019 JUANA HOLBROOK MD, Ot Z88.6 ALLERGY STATUS TO ANALGESIC AGENT STATUS 11/26/2019 JUANA HOLBROOK MD, Ot Z88.8 ALLERGY STATUS TO OTH DRUG/MEDS/BIOL SUB 11/26/2019 JUANA HOLBROOK MD, Ot Z90.49 ACQUIRED ABSENCE OF OTHER SPECIFIED PART 11/26/2019 JUANA HOLBROOK MD, Ot Z90.5 ACQUIRED ABSENCE OF KIDNEY 11/26/2019 JUANA HOLBROOK MD, Ot Z91.04 0 LATEX ALLERGY STATUS 11/26/2019 JUANA HOLBROOK MD, Ot Z93.3 COLOSTOMY STATUS 11/30/2019 JUANA HOLBROOK MD, Ot 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 11/30/2019 JUANA HOLBROOK MD, Ot E11.10 TYPE 2 DIABETES MELLITUS WITH KETOACIDOS 11/30/2019 JUANA HOLBROOK MD, Ot E78.5 HYPERLIPIDEMIA, UNSPECIFIED 11/30/2019 JUANA HOLBROOK MD, Ot G82.20 PARAPLEGIA, UNSPECIFIED 11/30/2019 JUANA HOLBROOK MD, Ot I87.2 VENOUS INSUFFICIENCY (CHRONIC) (PERIPHER 11/30/2019 JUANA HOLBROOK MD, Ot N39.0 URINARY TRACT INFECTION, SITE NOT SPECIF 11/30/2019 JUANA HOLBROOK MD, Ot 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 11/30/2019 JUANA HOLBROOK MD, Ot 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 11/30/2019 JUANA HOLBROOK MD, Ot Z79.89 9 OTHER LONG-TERM (CURRENT) DRUG THERAPY 11/30/2019 JUANA HOLBROOK MD, Ot Z80.3 FAMILY HISTORY OF MALIGNANT NEOPLASM OF 11/30/2019 JUANA HOLBROOK MD, Ot Z80.42 FAMILY HISTORY OF MALIGNANT NEOPLASM OF 11/30/2019 JUANA HOLBROOK MD, Ot Z82.49 FAMILY HX OF ISCHEM HEART DIS AND OTH DI 11/30/2019 JUANA HOLBROOK MD, Ot Z88.1 ALLERGY STATUS TO OTHER ANTIBIOTIC AGENT 11/30/2019 JUANA HOLBROOK MD, Ot Z88.2 ALLERGY STATUS TO SULFONAMIDES STATUS 11/30/2019 JUANA HOLBROOK MD, Ot Z88.6 ALLERGY STATUS TO ANALGESIC AGENT STATUS 11/30/2019 JUANA HOLBROOK MD, Ot Z88.8 ALLERGY STATUS TO OTH DRUG/MEDS/BIOL SUB 11/30/2019 JUANA HOLBROOK MD, Ot Z90.49 ACQUIRED ABSENCE OF OTHER SPECIFIED PART 11/30/2019 JUANA HOLBROOK MD, Ot Z90.5 ACQUIRED ABSENCE OF KIDNEY 11/30/2019 JUANA HOLBROOK MD, Ot Z91.04 0 LATEX ALLERGY STATUS 11/30/2019 JUANA HOLBROOK MD, Ot Z93.3 COLOSTOMY STATUS 11/30/2019 JUANA HOLBROOK MD, Ot 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 11/30/2019 JUANA HOLBROOK MD, Ot E11.10 TYPE 2 DIABETES MELLITUS WITH KETOACIDOS 11/30/2019 JUANA HOLBROOK MD, Ot E78.5 HYPERLIPIDEMIA, UNSPECIFIED 11/30/2019 JUANA HOLBROOK MD, Ot G82.20 PARAPLEGIA, UNSPECIFIED 11/30/2019 JUANA HOLBROOK MD, Ot I87.2 VENOUS INSUFFICIENCY (CHRONIC) (PERIPHER 11/30/2019 JUANA HOLBROOK MD, Ot N39.0 URINARY TRACT INFECTION, SITE NOT SPECIF 11/30/2019 JUANA HOLBROOK MD, Ot 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 11/30/2019 JUANA HOLBROOK MD, Ot 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 11/30/2019 JUANA HOLBROOK MD, Ot Z79.89 9 OTHER LONG-TERM (CURRENT) DRUG THERAPY 11/30/2019 JUANA HOLBROOK MD, Ot Z80.3 FAMILY HISTORY OF MALIGNANT NEOPLASM OF 11/30/2019 JUANA HOLBROOK MD, Ot Z80.42 FAMILY HISTORY OF MALIGNANT NEOPLASM OF 11/30/2019 JUANA HOLBROOK MD, Ot Z82.49 FAMILY HX OF ISCHEM HEART DIS AND OTH DI 11/30/2019 JUANA HOLBROOK MD, Ot Z88.1 ALLERGY STATUS TO OTHER ANTIBIOTIC AGENT 11/30/2019 JUANA HOLBROOK MD, Ot Z88.2 ALLERGY STATUS TO SULFONAMIDES STATUS 11/30/2019 JUANA HOLBROOK MD, Ot Z88.6 ALLERGY STATUS TO ANALGESIC AGENT STATUS 11/30/2019 JUANA HOLBROOK MD, Ot Z88.8 ALLERGY STATUS TO OTH DRUG/MEDS/BIOL SUB 11/30/2019 JUANA HOLBROOK MD, Ot Z90.49 ACQUIRED ABSENCE OF OTHER SPECIFIED PART 11/30/2019 JUANA HOLBROOK MD, Ot Z90.5 ACQUIRED ABSENCE OF KIDNEY 11/30/2019 JUANA HOLBROOK MD, Ot Z91.04 0 LATEX ALLERGY STATUS 11/30/2019 JUANA HOLBROOK MD, Ot Z93.3 COLOSTOMY STATUS 12/02/2019 JUANA HOLBROOK MD, Ot 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 12/02/2019 JUANA HOLBROOK MD, Ot E11.10 TYPE 2 DIABETES MELLITUS WITH KETOACIDOS 12/02/2019 JUANA HOLBROOK MD, Ot E78.5 HYPERLIPIDEMIA, UNSPECIFIED 12/02/2019 JUANA HOLBROOK MD, Ot G82.20 PARAPLEGIA, UNSPECIFIED 12/02/2019 JUANA HOLBROOK MD, Ot I87.2 VENOUS INSUFFICIENCY (CHRONIC) (PERIPHER 12/02/2019 JUANA HOLBROOK MD, Ot N39.0 URINARY TRACT INFECTION, SITE NOT SPECIF 12/02/2019 JUANA HOLBROOK MD, Ot Z79.4 LONG-TERM (CURRENT) USE OF INSULIN 12/02/2019 JUANA HOLBROOK MD, Ot 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 12/02/2019 JUANA HOLBROOK MD, Ot Z79.89 9 OTHER LONG-TERM (CURRENT) DRUG THERAPY 12/02/2019 JUANA HOLBROOK MD, Ot Z80.3 FAMILY HISTORY OF MALIGNANT NEOPLASM OF 12/02/2019 JUANA HOLBROOK MD, Ot Z80.42 FAMILY HISTORY OF MALIGNANT NEOPLASM OF 12/02/2019 UJANA HOLBROOK MD, Ot Z82.49 FAMILY HX OF ISCHEM HEART DIS AND OTH DI 12/02/2019 JUANA HOLBROOK MD, Ot Z88.1 ALLERGY STATUS TO OTHER ANTIBIOTIC AGENT 12/02/2019 JUANA HOLBROOK MD, Ot Z88.2 ALLERGY STATUS TO SULFONAMIDES STATUS 12/02/2019 JUANA HOLBROOK MD, Ot Z88.6 ALLERGY STATUS TO ANALGESIC AGENT STATUS 12/02/2019 JUANA HOLBROOK MD, Ot Z88.8 ALLERGY STATUS TO OTH DRUG/MEDS/BIOL SUB 12/02/2019 JUANA HOLBROOK MD, Ot Z90.49 ACQUIRED ABSENCE OF OTHER SPECIFIED PART 12/02/2019 JUANA HOLBROOK MD, Ot Z90.5 ACQUIRED ABSENCE OF KIDNEY 12/02/2019 JUANA HOLBROOK MD, Ot Z91.04 0 LATEX ALLERGY STATUS 12/02/2019 JUANA HOLBROOK MD, Ot Z93.3 COLOSTOMY STATUS Procedures Code [place] [address] OFFI CE OR OTHER OUTPATIENT VISIT FOR THE EVALUATION AND MANAGEMENT OF ANEW PATIENT, WHICH REQUIRES CHERYL WILSON 01/27/2016 [id number] IN SERTION OF INFUSION DEV INTO SUP VENA 09/22/2016 [id number] BY PASS SIGMOID COLON TO CUTANEOUS, PERC 01/04/2017 [id number] EX CISION OF SIGMOID COLON, PERCUTANEOUS 01/04/2017 [id number] EX CISION OF SIGMOID COLON, PERCUTANEOUS 01/04/2017 [id number] IN SERTION OF INFUSION DEV INTO SUP VENA 11/13/2019 Results Test Result Range Gentamicin trough - 03/06/16 10:00 Gentamicin trough 0.3 ug/mL <=2.0 Urine Culture, Routine - 04/01/16 16:03 Urine Culture, Routine Note Urine Culture, Routine - 06/26/16 14:51 Urine Culture, Routine Note Complete urinalysis with reflex to cultu re [...] culture - 09/08/16 16:55 Bacterial urine culture [id number] NRG COLONY COUNT <10,000 NRG FTX;REPORTABLE NO [...] by glucometer (mas s/volume) 292 mg/dL 70-110 Urine Culture, Routine - 09/18/16 00:00 Urine Culture, Routine Note Whole blood basic metabolic panel - 08/30 [...] - 10/22/16 10:41 Bacterial urine culture FOOTNOTE [facility] Whole blood basic metabolic panel - 02/11 [...] Staphylococcus aureus (MRSA) scr eening culture NEG [facility] Complete blood count (CBC) with automate d [...] ABO+Rh group AP NRG Transfusion band number [id number] NR Blood group antibody screen NEGATIVE NR G [...] NRG Blood hypochromia detection [facility] light [facility] Blood lactic acid measurement (moles/vol ume) [...] culture - 01/15/17 19:20 Bacterial urine culture [id number] NRG COLONY COUNT 10,000/ML - 100,000/ML NRG FTX;REPORTABLE SENSITIVITY REPORTED 01/17/17 7:25 NR Bacterial susceptibility panel - 7 19:20 Gentamicin [...] susceptibility test by minimum inhibitory concentration - [facility] Bacterial susceptibility panel - 7 19:20 Gentamicin [...] Bacteria identification in isolate by anaerobe culture [id number] NRG Gram stain microscopy - 07/04/17 14:50 GRAM STAIN RESULT FEW WBC'S, NO BACTERIA OBSERVED NRG Bacteria identification in wound by cult ure - 07/04/17 14:50 Bacteria identification in wound by culture [id number] NRG FREE TEXT EXTERNAL SENT TO REF.LAB FOR SENSITIVITY 07-08 NRG QUANTITY OF GROWTH Scant Growth NRG MRSA AGAR Screening test for MRSA is N EGATIVE (Final to follow) NR FREE TEXT ENTRY 2 (COAGULASE NEGATIVE STAPHYLOCOCC US) NRG Bacterial susceptibility panel - 7 14:50 [...] culture - 09/29/17 15:01 Bacterial urine culture [id number] NRG COLONY COUNT 10,000/ML - 100,000/ML NRG FTX;REPORTABLE SENSITIVITY REPORTED 09/30/17 17:00 NRG Bacterial susceptibility panel - 8 15:01 Gentamicin [...] 04/10/19 14:48 CULTURE, URINE, ROUTINE SEE NOTE NR CBC - 08/06/19 16:34 WHITE BLOOD CELL [...] NR STATEMENT OF ADEQUACY: NR INTERPRETATION/RESULT: NR VAT OPERATOR: RADHAG COMMENT NR CEA - 10/19/19 14:41 CEA 2.7 ng/mL See Note: CA 125 - 10/19/19 14:41 CA 125 34 U/mL <35 Complete blood count (CBC) with automate d white blood cell (WBC) differential - 11/12/19 13:40 Blood leukocytes automated count (number/volume) 16.9 10*3/uL 4.3-11.0 Blood erythrocytes automated count (number/volume) 2.53 10*6/uL 4.35-5.85 Venous blood hemoglobin measurement (mass/volume) 6.6 g/dL 11.5-16.0 Blood hematocrit (volume fraction) 22 % 35-52 Automated erythrocyte mean corpuscular volume 89 [ foz_us] 80-99 Automated erythrocyte mean corpuscular h emoglobin (mass per erythrocyte) 26 pg 25-34 Automated erythrocyte mean corpuscular h emoglobin concentration measurement (mass/volume) 30 g/dL 32-36 Automated erythrocyte distribution width ratio 16. 3 % 10.0- 14.5 Automated blood platelet count (count/volume) 413 10*3/uL 130-400 Automated blood platelet mean volume measurement 10.0 [foz_us] 7.4-10.4 Automated blood neutrophils/100 leukocytes 83 % 42-75 Automated blood lymphocytes/100 leukocytes 11 % 12-44 Blood monocytes/100 leukocytes 6 % 0-12 Automated blood eosinophils/100 leukocytes 0 % 0-10 Automated blood basophils/100 leukocytes 0 % 0-10 Blood neutrophils automated count (number/volume) 14.1 10*3 1.8-7.8 Blood lymphocytes automated count (number/volume) 1.8 10*3 1.0-4.0 Blood monocytes automated count (number/volume) 1. 0 10*3 0.0-1.0 Automated eosinophil count 0.1 10*3/uL 0 .0-0.3 Automated blood basophil count (count/volume) 0.0 10*3/uL 0.0-0.1 Comprehensive metabolic panel - 11/12/19 13:40 Serum or plasma sodium measurement (moles/volume) 136 mmol/L 135-145 Serum or plasma potassium measurement (moles/volume) 3.3 mmol/L 3.6-5.0 Serum or plasma chloride measurement (moles/volume) 112 mmol/L 98-107 Carbon dioxide 10 mmol/L 21-32 Serum or plasma anion gap determination (moles/volume) 14 mmol/L 5-14 Serum or plasma urea nitrogen measurement (mass/volume ) 10 mg/dL 7-18 Serum or plasma creatinine measurement (mass/volume) 1.26 mg/dL 0.60-1.30 Serum or plasma urea nitrogen/creatinine mass ratio 8 NRG Serum or plasma creatinine measurement w ith calculation of estimated glomerular filtration rate 45 NRG Serum or plasma glucose measurement (mass/volume) 183 mg/dL 70-105 Serum or plasma calcium measurement (mass/volume) 8.6 mg/dL 8.5-10.1 Serum or plasma total bilirubin measurement (mass/volu me) 0.2 mg/dL 0.1-1.0 Serum or plasma alkaline phosphatase brittany surement (enzymatic activity/volume) 78 U/L 40-136 Serum or plasma aspartate aminotransfera se measurement (enzymatic activity/volume) 17 U/L 5-34 Serum or plasma alanine aminotransferase measurement (enzymatic activity/volume) 21 U/L 0-55 Serum or plasma protein measurement (mass/volume) 7.6 g/dL 6.4-8.2 Serum or plasma albumin measurement (mass/volume) 3.6 g/dL 3.2-4.5 CALCIUM CORRECTED 8.9 mg/dL 8.5-10.1 PT panel in platelet poor plasma by coag ulation assay - 11/12/19 13:40 Prothrombin time (PT) in platelet poor plasma by coagu lation assay 15.6 s 12.2-14.7 INR in platelet poor plasma or blood by coagulation as say 1.2 0.8-1.4 Activated partial thromboplastin time (a PTT) in platelet poor plasma bycoagulation assay - 11/12/19 13:40 Activated partial thromboplastin time (a PTT) in platelet poor plasma bycoagulation assay 30 s 24-35 Blood lactic acid measurement (moles/vol ume) - 11/12/19 13:40 Blood lactic acid measurement (moles/volume) 3.49 mmol/L 0.50-2.00 Manual absolute plasma cell count - 10/27 01/15 13:40 Blood monocytes/100 leukocytes 3 % NRG Manual blood segmented neutrophils/100 leukocytes 84 % NRG Blood band neutrophils/100 leukocytes 3 % NRG Manual blood lymphocytes/100 leukocytes 10 % NRG Manual eosinophils/100 leukocytes in nose 0 % NRG Manual blood basophils/100 leukocytes 0 % NRG Blood anisocytosis detection by light microscopy S LIGHT NRG Blood hypochromia detection by light microscopy SL IGHT NRG Serum iron and total iron binding capaci ty panel - 11/12/19 13:40 TIBC 375 % 280-380 UIBC 371 % 55-450 Serum or plasma iron measurement (mass/volume) < % 35-180 Total iron binding capacity and transferrin saturation measurement 1 % 15-50 Serum or plasma ferritin measurement (mass/volume) 25.1 % 20.0-177.0 Bacterial blood culture - 11/12/19 13:40 QUANTITY OF GROWTH Isolated NRG Bacterial blood culture [id number] NRG SUSCEPTIBILITY SUSCEPTIBILITY REPORTED 11-16-19,105 1 NRG MRSA SCREEN SEE COMMENT NRG RAPID ID PRELIM RAPID ID BY VCP 11-14-19,0818 NRG ID CONFIRMATION ID CONFIRMED 11-15-19, 1524 NRG RML SENSITIVITY MAIN LAB - 11/12/19 13:4 0 Gentamicin susceptibility test by minimum inhibitory c oncentration <= NRG Trimethoprim/sulfamethoxazole susceptibi lity test by minimum inhibitoryconcentration <= NRG Levofloxacin susceptibility test by minimum inhibitory concentration <= NRG Ampicillin susceptibility test by minimum inhibitory c oncentration R NRG Cefazolin susceptibility test by minimum inhibitory co ncentration <= NRG Ceftriaxone susceptibility test by minimum inhibitory concentration <= NRG Piperacillin/tazobactam susceptibility t est by minimum inhibitory concentration = NRG Ciprofloxacin susceptibility test by minimum inhibitor y concentration <= NRG Meropenem susceptibility test by minimum inhibitory co ncentration <= NRG Amoxicillin and clavulanate potassium susc SRINIVAS <= NRG Imipenem susceptibility test by minimum inhibitory con centration <= NRG Bacterial blood culture - 11/12/19 14:10 Bacterial blood culture NG NRG RED CELLS LEUKO REDUCED AS1 - 11/12/19 1 4:20 RED CELLS LEUKO REDUCED AS1 T RANSFUSED 11/12/19 1807 NRG Blood type T Indirect antibody screen pa serena - 11/12/19 14:20 WRISTBAND NUMBER [id number] NRG ABO+Rh group AP NRG Blood group antibody screen NEGATIVE NR G Complete urinalysis with reflex to cultu re - 11/12/19 15:20 Urine color determination YELLOW NRG Urine clarity determination CLEAR NR G Urine pH measurement by test strip 6.0 5-9 Specific gravity of urine by test strip 1.020 1.016-1.022 Urine protein assay by test strip, semi-quantitative 2+ NEGATIVE Urine glucose detection by automated test strip 1+ NEGATIVE Erythrocytes detection in urine sediment by light micr oscopy TRACE-I NEGATIVE Urine ketones detection by automated test strip NE GATIVE NEGATIVE Urine nitrite detection by test strip POSITIVE NEGATIVE Urine total bilirubin detection by test strip NEGA TIVE NEGATIVE Urine urobilinogen measurement by automated test strip (mass/volume) 0.2 mg/dL < = 1.0 Urine leukocyte esterase detection by dipstick 2+ NEGATIVE Automated urine sediment erythrocyte cou nt by microscopy (number/high power field) NONE NRG Automated urine sediment leukocyte count by microscopy (number/high power field) [HPF] NRG Bacteria detection in urine sediment by light microsco py LARGE NRG Crystals detection in urine sediment by light microsco py NONE NRG Casts detection in urine sediment by light microscopy NONE NRG Mucus detection in urine sediment by light microscopy NEGATIVE NRG Complete urinalysis with reflex to culture YES NRG Bacterial urine culture - 11/12/19 15:20 Bacterial urine culture [id number] NRG COLONY COUNT >100,000/ML NRG SUSCEPTIBILITY SUSCEPTIBILITY REPORTED 11-14-19,124 3 NRG RAPID ID PRELIM RAPID ID TEST AT [facility] 11/12 07:15 NRG ID CONFIRMATION RML ID 11/12 13:05: KLEBSIELLA PNE UMONIA NRG Dirithromycin susceptibility test by dis k diffusion - 11/12/19 15:20 Gentamicin susceptibility test by minimum inhibitory c oncentration <= NRG Trimethoprim/sulfamethoxazole susceptibi lity test by minimum inhibitoryconcentration <= NRG Levofloxacin susceptibility test by minimum inhibitory concentration <= NRG Ampicillin susceptibility test by minimum inhibitory c oncentration R NRG Cefazolin susceptibility test by minimum inhibitory co ncentration <= NRG Ceftriaxone susceptibility test by minimum inhibitory concentration <= NRG Ciprofloxacin susceptibility test by minimum inhibitor y concentration <= NRG Meropenem susceptibility test by minimum inhibitory co ncentration <= NRG Nitrofurantoin susceptibility test by mi nimum inhibitory concentration 64 NRG Amoxicillin and clavulanate potassium susc SRINIVAS <= NRG Serum or plasma lactate measurement (mol es/volume) - 11/12/19 15:35 Serum or plasma lactate measurement (moles/volume) 2.38 mmol/L 0.50-2.00 Serum or plasma lactate measurement (mol es/volume) - 11/12/19 17:40 Serum or plasma lactate measurement (moles/volume) 1.96 mmol/L 0.50-2.00 Complete blood count (CBC) with automate d white blood cell (WBC) differential - 11/13/19 05:15 Blood leukocytes automated count (number/volume) 14.9 10*3/uL 4.3-11.0 Blood erythrocytes automated count (number/volume) 3.25 10*6/uL 4.35-5.85 Venous blood hemoglobin measurement (mass/volume) 8.3 g/dL 11.5-16.0 Blood hematocrit (volume fraction) 27 % 35-52 Automated erythrocyte mean corpuscular volume 84 [ foz_us] 80-99 Automated erythrocyte mean corpuscular h emoglobin (mass per erythrocyte) 26 pg 25-34 Automated erythrocyte mean corpuscular h emoglobin concentration measurement (mass/volume) 30 g/dL 32-36 Automated erythrocyte distribution width ratio 17. 6 % 10.0- 14.5 Automated blood platelet count (count/volume) 275 10*3/uL 130-400 Automated blood platelet mean volume measurement 10.8 [foz_us] 7.4-10.4 Automated blood neutrophils/100 leukocytes 91 % 42-75 Automated blood lymphocytes/100 leukocytes 4 % 12-44 Blood monocytes/100 leukocytes 3 % 0-12 Automated blood eosinophils/100 leukocytes 2 % 0-10 Automated blood basophils/100 leukocytes 0 % 0-10 Blood neutrophils automated count (number/volume) 13.5 10*3 1.8-7.8 Blood lymphocytes automated count (number/volume) 0.5 10*3 1.0-4.0 Blood monocytes automated count (number/volume) 0. 5 10*3 0.0-1.0 Automated eosinophil count 0.3 10*3/uL 0 .0-0.3 Automated blood basophil count (count/volume) 0.0 10*3/uL 0.0-0.1 Whole blood basic metabolic panel - 10/27 02/14 05:15 Serum or plasma sodium measurement (moles/volume) 137 mmol/L 135-145 Serum or plasma potassium measurement (moles/volume) 3.8 mmol/L 3.6-5.0 Serum or plasma chloride measurement (moles/volume) 116 mmol/L 98-107 Carbon dioxide 7 mmol/L 21-32 Serum or plasma anion gap determination (moles/volume) 14 mmol/L 5-14 Serum or plasma urea nitrogen measurement (mass/volume ) 13 mg/dL 7-18 Serum or plasma creatinine measurement (mass/volume) 1.31 mg/dL 0.60-1.30 Serum or plasma urea nitrogen/creatinine mass ratio 10 NRG Serum or plasma creatinine measurement w ith calculation of estimated glomerular filtration rate 43 NRG Serum or plasma glucose measurement (mass/volume) 393 mg/dL 70-105 Serum or plasma calcium measurement (mass/volume) 7.7 mg/dL 8.5-10.1 Hemoglobin A1c measurement - 11/13/19 05 :15 Blood hemoglobin A1C measurement (mass/volume) 7.3 % 4.0-5.6 MEAN BLOOD GLUCOSE 163 % <=126 Capillary blood glucose measurement by g lucometer (mass/volume) - 11/13/19 11:59 Capillary blood glucose measurement by glucometer (mas s/volume) 478 mg/dL 70-110 OCCULT BLOOD STOOL - 11/13/19 12:35 Stool gastrointestinal hemoglobin detection POSITI VE NEGATIVE Capillary blood glucose measurement by g lucometer (mass/volume) - 11/13/19 16:32 Capillary blood glucose measurement by glucometer (mas s/volume) 430 mg/dL 70-110 Bacterial blood culture - 11/13/19 17:20 Bacterial blood culture NG NRG Comprehensive metabolic panel - 11/13/19 17:30 Serum or plasma sodium measurement (moles/volume) 136 mmol/L 135-145 Serum or plasma potassium measurement (moles/volume) 4.2 mmol/L 3.6-5.0 Serum or plasma chloride measurement (moles/volume) 115 mmol/L 98-107 Carbon dioxide 10 mmol/L 21-32 Serum or plasma anion gap determination (moles/volume) 11 mmol/L 5-14 Serum or plasma urea nitrogen measurement (mass/volume ) 13 mg/dL 7-18 Serum or plasma creatinine measurement (mass/volume) 1.39 mg/dL 0.60-1.30 Serum or plasma urea nitrogen/creatinine mass ratio 9 NRG Serum or plasma creatinine measurement w ith calculation of estimated glomerular filtration rate 40 NRG Serum or plasma glucose measurement (mass/volume) 439 mg/dL 70-105 Serum or plasma calcium measurement (mass/volume) 8.1 mg/dL 8.5-10.1 Serum or plasma total bilirubin measurement (mass/volu me) 0.3 mg/dL 0.1-1.0 Serum or plasma alkaline phosphatase brittany surement (enzymatic activity/volume) 78 U/L 40-136 Serum or plasma aspartate aminotransfera se measurement (enzymatic activity/volume) 29 U/L 5-34 Serum or plasma alanine aminotransferase measurement (enzymatic activity/volume) 30 U/L 0-55 Serum or plasma protein measurement (mass/volume) 7.0 g/dL 6.4-8.2 Serum or plasma albumin measurement (mass/volume) 3.2 g/dL 3.2-4.5 CALCIUM CORRECTED 8.7 mg/dL 8.5-10.1 PROCALCITONIN (PCT) - 11/13/19 17:30 PROCALCITONIN (PCT) 35.35 ng/mL <0.10 Serum or plasma troponin i.cardiac measu rement (mass/volume) - 11/13/19 17:30 Serum or plasma troponin i.cardiac measurement (mass/v olume) < ng/mL <0.028 Beta-hydroxybutyric acid measurement - 0 11/13/19 17:30 Beta-hydroxybutyric acid measurement 0.29 mmol/L 0.00-0.27 Arterial blood gas measurement - 0 17:33 Blood pCO2 20 mm[Hg] 35-45 Blood pO2 101 mm[Hg] 79-93 Arterial blood bicarbonate measurement (moles/volume) 10 mmol/L 23-27 Arterial blood base excess by calculation -14.6 mm ol/L -2.5-2.5 Arterial blood oxygen saturation measurement 99 % 94-100 * Inhaled oxygen flow rate N/A NRG Arterial blood pH measurement with patient temperature correction 7.32 7.37-7.43 Arterial blood carbon dioxide, total measurement (mole s/volume) 10.9 mmol/L 21.0-31.0 Body site LEFT RADIAL NRG Assessment of wrist artery patency prior to arterial p uncture POSITIVE NRG Setting of ventilation mode NO NR G Measurement of body temperature 37.2 NRG Complete blood count (CBC) with automate d white blood cell (WBC) differential - 11/13/19 19:00 Blood leukocytes automated count (number/volume) 18.9 10*3/uL 4.3-11.0 Blood erythrocytes automated count (number/volume) 3.22 10*6/uL 4.35-5.85 Venous blood hemoglobin measurement (mass/volume) 8.6 g/dL 11.5-16.0 Blood hematocrit (volume fraction) 27 % 35-52 Automated erythrocyte mean corpuscular volume 85 [ foz_us] 80-99 Automated erythrocyte mean corpuscular h emoglobin (mass per erythrocyte) 27 pg 25-34 Automated erythrocyte mean corpuscular h emoglobin concentration measurement (mass/volume) 32 g/dL 32-36 Automated erythrocyte distribution width ratio 17. 7 % 10.0- 14.5 Automated blood platelet count (count/volume) 364 10*3/uL 130-400 Automated blood platelet mean volume measurement 10.3 [foz_us] 7.4-10.4 Automated blood neutrophils/100 leukocytes 87 % 42-75 Automated blood lymphocytes/100 leukocytes 7 % 12-44 Blood monocytes/100 leukocytes 6 % 0-12 Automated blood eosinophils/100 leukocytes 0 % 0-10 Automated blood basophils/100 leukocytes 0 % 0-10 Blood neutrophils automated count (number/volume) 16.4 10*3 1.8-7.8 Blood lymphocytes automated count (number/volume) 1.2 10*3 1.0-4.0 Blood monocytes automated count (number/volume) 1. 1 10*3 0.0-1.0 Automated eosinophil count 0.1 10*3/uL 0 .0-0.3 Automated blood basophil count (count/volume) 0.0 10*3/uL 0.0-0.1 Whole blood basic metabolic panel - 10/27 02/14 19:00 Serum or plasma sodium measurement (moles/volume) 135 mmol/L 135-145 Serum or plasma potassium measurement (moles/volume) 3.9 mmol/L 3.6-5.0 Serum or plasma chloride measurement (moles/volume) 113 mmol/L 98-107 Carbon dioxide 10 mmol/L 21-32 Serum or plasma anion gap determination (moles/volume) 12 mmol/L 5-14 Serum or plasma urea nitrogen measurement (mass/volume ) 13 mg/dL 7-18 Serum or plasma creatinine measurement (mass/volume) 1.33 mg/dL 0.60-1.30 Serum or plasma urea nitrogen/creatinine mass ratio 10 NRG Serum or plasma creatinine measurement w ith calculation of estimated glomerular filtration rate 42 NRG Serum or plasma glucose measurement (mass/volume) 402 mg/dL 70-105 Serum or plasma calcium measurement (mass/volume) 8.0 mg/dL 8.5-10.1 Blood lactic acid measurement (moles/vol ume) - 11/13/19 19:00 Blood lactic acid measurement (moles/volume) 2.48 mmol/L 0.50-2.00 Serum or plasma lithium measurement (mol es/volume) - 11/13/19 19:00 BNP PT 126.6 pg/mL <100.0 Manual absolute plasma cell count - 10/27 02/14 19:00 Blood monocytes/100 leukocytes 2 % NRG Manual blood segmented neutrophils/100 leukocytes 88 % NRG Blood band neutrophils/100 leukocytes 2 % NRG Manual blood lymphocytes/100 leukocytes 8 % NRG Blood polychromasia detection by light microscopy SLIGHT NRG Blood anisocytosis detection by light microscopy S LIGHT NRG Capillary blood glucose measurement by g lucometer (mass/volume) - 11/13/19 19:18 Capillary blood glucose measurement by glucometer (mas s/volume) 381 mg/dL 70-110 Capillary blood glucose measurement by g lucometer (mass/volume) - 11/13/19 20:10 Capillary blood glucose measurement by glucometer (mas s/volume) 411 mg/dL 70-110 Complete urinalysis with reflex to cultu re - 11/13/19 20:32 Urine color determination YELLOW NRG Urine clarity determination TURBID NR G Urine pH measurement by test strip 6.0 5-9 Specific gravity of urine by test strip 1.010 1.016-1.022 Urine protein assay by test strip, semi-quantitative 1+ NEGATIVE Urine glucose detection by automated test strip 3+ NEGATIVE Erythrocytes detection in urine sediment by light micr oscopy 2+ NEGATIVE Urine ketones detection by automated test strip NE GATIVE NEGATIVE Urine nitrite detection by test strip POSITIVE NEGATIVE Urine total bilirubin detection by test strip NEGA TIVE NEGATIVE Urine urobilinogen measurement by automated test strip (mass/volume) 0.2 mg/dL < = 1.0 Urine leukocyte esterase detection by dipstick 2+ NEGATIVE Automated urine sediment erythrocyte cou nt by microscopy (number/high power field) [HPF] NRG Automated urine sediment leukocyte count by microscopy (number/high power field) TNTC NRG Bacteria detection in urine sediment by light microsco py MODERATE NRG Crystals detection in urine sediment by light microsco py NONE NRG Casts detection in urine sediment by light microscopy NONE NRG Mucus detection in urine sediment by light microscopy NEGATIVE NRG Complete urinalysis with reflex to culture YES NRG Bacterial urine culture - 11/13/19 20:32 Bacterial urine culture [id number] NRG COLONY COUNT <10,000 NRG SUSCEPTIBILITY NO SUSCEPTIBILITY PERFORMED NRG MRSA SCREEN SEE PREVIOUS CULTURE NRG RAPID ID PRELIM RAPID ID [id number] NRG ID CONFIRMATION ID CONFIRMED [id number]. NRG Capillary blood glucose measurement by g lucometer (mass/volume) - 11/13/19 21:12 Capillary blood glucose measurement by glucometer (mas s/volume) 371 mg/dL 70-110 Serum or plasma lactate measurement (mol es/volume) - 11/13/19 21:45 Serum or plasma lactate measurement (moles/volume) 2.01 mmol/L 0.50-2.00 Bacterial blood culture - 11/13/19 21:45 Bacterial blood culture NG NRG Capillary blood glucose measurement by g lucometer (mass/volume) - 11/13/19 22:17 Capillary blood glucose measurement by glucometer (mas s/volume) 323 mg/dL 70-110 Capillary blood glucose measurement by g lucometer (mass/volume) - 11/13/19 23:07 Capillary blood glucose measurement by glucometer (mas s/volume) 277 mg/dL 70-110 Whole blood basic metabolic panel - 10/27 03/17 00:02 Serum or plasma sodium measurement (moles/volume) 138 mmol/L 135-145 Serum or plasma potassium measurement (moles/volume) 3.5 mmol/L 3.6-5.0 Serum or plasma chloride measurement (moles/volume) 119 mmol/L 98-107 Carbon dioxide 10 mmol/L 21-32 Serum or plasma anion gap determination (moles/volume) 9 mmol/L 5-14 Serum or plasma urea nitrogen measurement (mass/volume ) 11 mg/dL 7-18 Serum or plasma creatinine measurement (mass/volume) 0.94 mg/dL 0.60-1.30 Serum or plasma urea nitrogen/creatinine mass ratio 12 NRG Serum or plasma creatinine measurement w ith calculation of estimated glomerular filtration rate > NRG Serum or plasma glucose measurement (mass/volume) 200 mg/dL 70-105 Serum or plasma calcium measurement (mass/volume) 7.0 mg/dL 8.5-10.1 Serum or plasma lactate measurement (mol es/volume) - 11/14/19 00:02 Serum or plasma lactate measurement (moles/volume) 1.56 mmol/L 0.50-2.00 Capillary blood glucose measurement by g lucometer (mass/volume) - 11/14/19 00:03 Capillary blood glucose measurement by glucometer (mas s/volume) 225 mg/dL 70-110 Capillary blood glucose measurement by g lucometer (mass/volume) - 11/14/19 01:01 Capillary blood glucose measurement by glucometer (mas s/volume) 203 mg/dL 70-110 Capillary blood glucose measurement by g lucometer (mass/volume) - 11/14/19 02:04 Capillary blood glucose measurement by glucometer (mas s/volume) 184 mg/dL 70-110 Capillary blood glucose measurement by g lucometer (mass/volume) - 11/14/19 03:05 Capillary blood glucose measurement by glucometer (mas s/volume) 224 mg/dL 70-110 Complete blood count (CBC) with automate d white blood cell (WBC) differential - 11/14/19 03:06 Blood leukocytes automated count (number/volume) 13.1 10*3/uL 4.3-11.0 Blood erythrocytes automated count (number/volume) 2.68 10*6/uL 4.35-5.85 Venous blood hemoglobin measurement (mass/volume) 7.0 g/dL 11.5-16.0 Blood hematocrit (volume fraction) 22 % 35-52 Automated erythrocyte mean corpuscular volume 84 [ foz_us] 80-99 Automated erythrocyte mean corpuscular h emoglobin (mass per erythrocyte) 26 pg 25-34 Automated erythrocyte mean corpuscular h emoglobin concentration measurement (mass/volume) 31 g/dL 32-36 Automated erythrocyte distribution width ratio 17. 5 % 10.0- 14.5 Automated blood platelet count (count/volume) 285 10*3/uL 130-400 Automated blood platelet mean volume measurement 10.0 [foz_us] 7.4-10.4 Automated blood neutrophils/100 leukocytes 82 % 42-75 Automated blood lymphocytes/100 leukocytes 10 % 12-44 Blood monocytes/100 leukocytes 6 % 0-12 Automated blood eosinophils/100 leukocytes 1 % 0-10 Automated blood basophils/100 leukocytes 0 % 0-10 Blood neutrophils automated count (number/volume) 10.8 10*3 1.8-7.8 Blood lymphocytes automated count (number/volume) 1.4 10*3 1.0-4.0 Blood monocytes automated count (number/volume) 0. 8 10*3 0.0-1.0 Automated eosinophil count 0.1 10*3/uL 0 .0-0.3 Automated blood basophil count (count/volume) 0.0 10*3/uL 0.0-0.1 Comprehensive metabolic panel - 11/14/19 03:06 Serum or plasma sodium measurement (moles/volume) 137 mmol/L 135-145 Serum or plasma potassium measurement (moles/volume) 3.5 mmol/L 3.6-5.0 Serum or plasma chloride measurement (moles/volume) 119 mmol/L 98-107 Carbon dioxide 10 mmol/L 21-32 Serum or plasma anion gap determination (moles/volume) 8 mmol/L 5-14 Serum or plasma urea nitrogen measurement (mass/volume ) 10 mg/dL 7-18 Serum or plasma creatinine measurement (mass/volume) 0.94 mg/dL 0.60-1.30 Serum or plasma urea nitrogen/creatinine mass ratio 11 NRG Serum or plasma creatinine measurement w ith calculation of estimated glomerular filtration rate > NRG Serum or plasma glucose measurement (mass/volume) 214 mg/dL 70-105 Serum or plasma calcium measurement (mass/volume) 6.9 mg/dL 8.5-10.1 Serum or plasma total bilirubin measurement (mass/volu me) 0.2 mg/dL 0.1-1.0 Serum or plasma alkaline phosphatase brittany surement (enzymatic activity/volume) 68 U/L 40-136 Serum or plasma aspartate aminotransfera se measurement (enzymatic activity/volume) 24 U/L 5-34 Serum or plasma alanine aminotransferase measurement (enzymatic activity/volume) 26 U/L 0-55 Serum or plasma protein measurement (mass/volume) 5.4 g/dL 6.4-8.2 Serum or plasma albumin measurement (mass/volume) 2.5 g/dL 3.2-4.5 CALCIUM CORRECTED 8.1 mg/dL 8.5-10.1 Serum or plasma phosphate measurement (m ass/volume) - 11/14/19 03:06 Serum or plasma phosphate measurement (mass/volume) 1.6 mg/dL 2.3-4.7 Magnesium - 11/14/19 03:06 Magnesium 1.6 mg/dL 1.6-2.4 PROCALCITONIN (PCT) - 11/14/19 03:06 PROCALCITONIN (PCT) 26.32 ng/mL <0.10 Capillary blood glucose measurement by g lucometer (mass/volume) - 11/14/19 04:07 Capillary blood glucose measurement by glucometer (mas s/volume) 245 mg/dL 70-110 Capillary blood glucose measurement by g lucometer (mass/volume) - 11/14/19 05:03 Capillary blood glucose measurement by glucometer (mas s/volume) 262 mg/dL 70-110 Capillary blood glucose measurement by g lucometer (mass/volume) - 11/14/19 06:17 Capillary blood glucose measurement by glucometer (mas s/volume) 162 mg/dL 70-110 Blood lactic acid measurement (moles/vol ume) - 11/14/19 06:25 Blood lactic acid measurement (moles/volume) 2.14 mmol/L 0.50-2.00 Capillary blood glucose measurement by g lucometer (mass/volume) - 11/14/19 07:43 Capillary blood glucose measurement by glucometer (mas s/volume) 183 mg/dL 70-110 Capillary blood glucose measurement by g lucometer (mass/volume) - 11/14/19 09:02 Capillary blood glucose measurement by glucometer (mas s/volume) 220 mg/dL 70-110 Serum or plasma lactate measurement (mol es/volume) - 11/14/19 09:11 Serum or plasma lactate measurement (moles/volume) 1.01 mmol/L 0.50-2.00 Capillary blood glucose measurement by g lucometer (mass/volume) - 11/14/19 11:10 Capillary blood glucose measurement by glucometer (mas s/volume) 243 mg/dL 70-110 Capillary blood glucose measurement by g lucometer (mass/volume) - 11/14/19 15:38 Capillary blood glucose measurement by glucometer (mas s/volume) 240 mg/dL 70-110 Capillary blood glucose measurement by g lucometer (mass/volume) - 11/14/19 20:14 Capillary blood glucose measurement by glucometer (mas s/volume) 227 mg/dL 70-110 Complete blood count (CBC) with automate d white blood cell (WBC) differential - 11/15/19 03:16 Blood leukocytes automated count (number/volume) 13.9 10*3/uL 4.3-11.0 Blood erythrocytes automated count (number/volume) 2.55 10*6/uL 4.35-5.85 Venous blood hemoglobin measurement (mass/volume) 7.0 g/dL 11.5-16.0 Blood hematocrit (volume fraction) 22 % 35-52 Automated erythrocyte mean corpuscular volume 85 [ foz_us] 80-99 Automated erythrocyte mean corpuscular h emoglobin (mass per erythrocyte) 27 pg 25-34 Automated erythrocyte mean corpuscular h emoglobin concentration measurement (mass/volume) 31 g/dL 32-36 Automated erythrocyte distribution width ratio 17. 9 % 10.0- 14.5 Automated blood platelet count (count/volume) 282 10*3/uL 130-400 Automated blood platelet mean volume measurement 9.9 [foz_us] 7.4-10.4 Automated blood neutrophils/100 leukocytes 77 % 42-75 Automated blood lymphocytes/100 leukocytes 14 % 12-44 Blood monocytes/100 leukocytes 6 % 0-12 Automated blood eosinophils/100 leukocytes 2 % 0-10 Automated blood basophils/100 leukocytes 0 % 0-10 Blood neutrophils automated count (number/volume) 10.7 10*3 1.8-7.8 Blood lymphocytes automated count (number/volume) 2.0 10*3 1.0-4.0 Blood monocytes automated count (number/volume) 0. 8 10*3 0.0-1.0 Automated eosinophil count 0.3 10*3/uL 0 .0-0.3 Automated blood basophil count (count/volume) 0.0 10*3/uL 0.0-0.1 Whole blood basic metabolic panel - 10/27 04/17 03:16 Serum or plasma sodium measurement (moles/volume) 140 mmol/L 135-145 Serum or plasma potassium measurement (moles/volume) 4.1 mmol/L 3.6-5.0 Serum or plasma chloride measurement (moles/volume) 118 mmol/L 98-107 Carbon dioxide 12 mmol/L 21-32 Serum or plasma anion gap determination (moles/volume) 10 mmol/L 5-14 Serum or plasma urea nitrogen measurement (mass/volume ) 8 mg/dL 7-18 Serum or plasma creatinine measurement (mass/volume) 0.84 mg/dL 0.60-1.30 Serum or plasma urea nitrogen/creatinine mass ratio 10 NRG Serum or plasma creatinine measurement w ith calculation of estimated glomerular filtration rate > NRG Serum or plasma glucose measurement (mass/volume) 160 mg/dL 70-105 Serum or plasma calcium measurement (mass/volume) 7.2 mg/dL 8.5-10.1 Serum or plasma phosphate measurement (m ass/volume) - 11/15/19 03:16 Serum or plasma phosphate measurement (mass/volume) 2.0 mg/dL 2.3-4.7 Magnesium - 11/15/19 03:16 Magnesium 1.9 mg/dL 1.6-2.4 Comprehensive metabolic panel - 11/15/19 05:43 Serum or plasma sodium measurement (moles/volume) 140 mmol/L 135-145 Serum or plasma potassium measurement (moles/volume) 4.0 mmol/L 3.6-5.0 Serum or plasma chloride measurement (moles/volume) 118 mmol/L 98-107 Carbon dioxide 13 mmol/L 21-32 Serum or plasma anion gap determination (moles/volume) 9 mmol/L 5-14 Serum or plasma urea nitrogen measurement (mass/volume ) 8 mg/dL 7-18 Serum or plasma creatinine measurement (mass/volume) 0.82 mg/dL 0.60-1.30 Serum or plasma urea nitrogen/creatinine mass ratio 10 NRG Serum or plasma creatinine measurement w ith calculation of estimated glomerular filtration rate > NRG Serum or plasma glucose measurement (mass/volume) 158 mg/dL 70-105 Serum or plasma calcium measurement (mass/volume) 7.2 mg/dL 8.5-10.1 Serum or plasma total bilirubin measurement (mass/volu me) 0.2 mg/dL 0.1-1.0 Serum or plasma alkaline phosphatase brittany surement (enzymatic activity/volume) 66 U/L 40-136 Serum or plasma aspartate aminotransfera se measurement (enzymatic activity/volume) 20 U/L 5-34 Serum or plasma alanine aminotransferase measurement (enzymatic activity/volume) 24 U/L 0-55 Serum or plasma protein measurement (mass/volume) 5.5 g/dL 6.4-8.2 Serum or plasma albumin measurement (mass/volume) 2.5 g/dL 3.2-4.5 CALCIUM CORRECTED 8.4 mg/dL 8.5-10.1 Vancomycin trough - 11/15/19 05:43 Vancomycin trough 28.3 ug/mL 10.0-20.0 Capillary blood glucose measurement by g lucometer (mass/volume) - 11/15/19 10:54 Capillary blood glucose measurement by glucometer (mas s/volume) 239 mg/dL 70-110 Capillary blood glucose measurement by g lucometer (mass/volume) - 11/15/19 15:57 Capillary blood glucose measurement by glucometer (mas s/volume) 160 mg/dL 70-110 Capillary blood glucose measurement by g lucometer (mass/volume) - 11/15/19 20:26 Capillary blood glucose measurement by glucometer (mas s/volume) 232 mg/dL 70-110 Complete blood count (CBC) with automate d white blood cell (WBC) differential - 11/16/19 05:10 Blood leukocytes automated count (number/volume) 10.9 10*3/uL 4.3-11.0 Blood erythrocytes automated count (number/volume) 2.96 10*6/uL 4.35-5.85 Venous blood hemoglobin measurement (mass/volume) 7.9 g/dL 11.5-16.0 Blood hematocrit (volume fraction) 26 % 35-52 Automated erythrocyte mean corpuscular volume 87 [ foz_us] 80-99 Automated erythrocyte mean corpuscular h emoglobin (mass per erythrocyte) 27 pg 25-34 Automated erythrocyte mean corpuscular h emoglobin concentration measurement (mass/volume) 31 g/dL 32-36 Automated erythrocyte distribution width ratio 17. 9 % 10.0- 14.5 Automated blood platelet count (count/volume) 259 10*3/uL 130-400 Automated blood platelet mean volume measurement 9.9 [foz_us] 7.4-10.4 Automated blood neutrophils/100 leukocytes 75 % 42-75 Automated blood lymphocytes/100 leukocytes 18 % 12-44 Blood monocytes/100 leukocytes 6 % 0-12 Automated blood eosinophils/100 leukocytes 1 % 0-10 Automated blood basophils/100 leukocytes 0 % 0-10 Blood neutrophils automated count (number/volume) 8.2 10*3 1.8-7.8 Blood lymphocytes automated count (number/volume) 1.9 10*3 1.0-4.0 Blood monocytes automated count (number/volume) 0. 6 10*3 0.0-1.0 Automated eosinophil count 0.2 10*3/uL 0 .0-0.3 Automated blood basophil count (count/volume) 0.0 10*3/uL 0.0-0.1 Comprehensive metabolic panel - 11/16/19 05:10 Serum or plasma sodium measurement (moles/volume) 141 mmol/L 135-145 Serum or plasma potassium measurement (moles/volume) 3.9 mmol/L 3.6-5.0 Serum or plasma chloride measurement (moles/volume) 115 mmol/L 98-107 Carbon dioxide 16 mmol/L 21-32 Serum or plasma anion gap determination (moles/volume) 10 mmol/L 5-14 Serum or plasma urea nitrogen measurement (mass/volume ) 8 mg/dL 7-18 Serum or plasma creatinine measurement (mass/volume) 0.78 mg/dL 0.60-1.30 Serum or plasma urea nitrogen/creatinine mass ratio 10 NRG Serum or plasma creatinine measurement w ith calculation of estimated glomerular filtration rate > NRG Serum or plasma glucose measurement (mass/volume) 140 mg/dL 70-105 Serum or plasma calcium measurement (mass/volume) 7.3 mg/dL 8.5-10.1 Serum or plasma total bilirubin measurement (mass/volu me) 0.2 mg/dL 0.1-1.0 Serum or plasma alkaline phosphatase brittany surement (enzymatic activity/volume) 92 U/L 40-136 Serum or plasma aspartate aminotransfera se measurement (enzymatic activity/volume) 17 U/L 5-34 Serum or plasma alanine aminotransferase measurement (enzymatic activity/volume) 24 U/L 0-55 Serum or plasma protein measurement (mass/volume) 5.6 g/dL 6.4-8.2 Serum or plasma albumin measurement (mass/volume) 2.6 g/dL 3.2-4.5 CALCIUM CORRECTED 8.4 mg/dL 8.5-10.1 Serum or plasma phosphate measurement (m ass/volume) - 11/16/19 05:10 Serum or plasma phosphate measurement (mass/volume) 2.8 mg/dL 2.3-4.7 Magnesium - 11/16/19 05:10 Magnesium 1.7 mg/dL 1.6-2.4 Vancomycin trough - 11/16/19 05:10 Vancomycin trough 12.3 ug/mL 10.0-20.0 Capillary blood glucose measurement by g lucometer (mass/volume) - 11/16/19 10:55 Capillary blood glucose measurement by glucometer (mas s/volume) 223 mg/dL 70-110 CBC MORPHOLOGY - 11/20/19 13:23 CBC MORPHOLOGY NORMAL RED CELLS LEUKO REDUCED AS1 - 11/21/19 1 2:42 RED CELLS LEUKO REDUCED AS1 T RANSFUSED 11/21/19 1806 NRG Blood type T Indirect antibody screen pa serena - 11/21/19 12:42 WRISTBAND NUMBER [id number] NRG ABO+Rh group AP NRG Blood group antibody screen NEGATIVE NR G Automated blood complete blood count (he mogram) panel - 11/21/19 17:10 Blood leukocytes automated count (number/volume) 13.7 10*3/uL 4.3-11.0 Blood erythrocytes automated count (number/volume) 2.68 10*6/uL 4.35-5.85 Venous blood hemoglobin measurement (mass/volume) 7.6 g/dL 11.5-16.0 Blood hematocrit (volume fraction) 25 % 35-52 Automated erythrocyte mean corpuscular volume 94 [ foz_us] 80-99 Automated erythrocyte mean corpuscular h emoglobin (mass per erythrocyte) 28 pg 25-34 Automated erythrocyte mean corpuscular h emoglobin concentration measurement (mass/volume) 30 g/dL 32-36 Automated erythrocyte distribution width ratio 20. 9 % 10.0- 14.5 Automated blood platelet count (count/volume) 170 10*3/uL 130-400 Automated blood platelet mean volume measurement 10.8 [foz_us] 7.4-10.4 CBC - 11/24/19 13:52 WHITE BLOOD CELL COUNT 14.5 Thousand/uL 3.8-10.8 RED BLOOD CELL COUNT 3.40 Million/uL 3.8 0-5.10 HEMOGLOBIN 9.6 g/dL 11.7-15.5 HEMATOCRIT 30.8 % 35.0-45.0 MCV 90.6 fL 80.0-100.0 MCH 28.2 pg 27.0-33.0 MCHC 31.2 g/dL 32.0-36.0 RDW 18.7 % 11.0-15.0 PLATELET COUNT 439 Thousand/uL 140-400 MPV 10.9 fL 7.5-12.5 ABSOLUTE NEUTROPHILS 76303 cells/uL 1500 -7800 ABSOLUTE LYMPHOCYTES 2741 cells/uL 850-3 900 ABSOLUTE MONOCYTES 537 cells/uL 200-950 ABSOLUTE EOSINOPHILS 145 cells/uL 15-500 ABSOLUTE BASOPHILS 73 cells/uL 0-200 NEUTROPHILS 75.9 % NRG LYMPHOCYTES 18.9 % NRG MONOCYTES 3.7 % NRG EOSINOPHILS 1.0 % NRG BASOPHILS 0.5 % NRG Capillary blood glucose measurement by g lucometer (mass/volume) - 11/26/19 10:51 Capillary blood glucose measurement by glucometer (mas s/volume) 77 mg/dL 70-110 Methicillin resistant Staphylococcus aur eus (MRSA) screening culture - 11/26/19 11:05 Methicillin resistant Staphylococcus aureus (MRSA) scr eening culture NEG NRG CBC - 12/02/19 12:52 WHITE BLOOD CELL COUNT 9.6 Thousand/uL 3 .8-10.8 RED BLOOD CELL COUNT 3.29 Million/uL 3.8 0-5.10 HEMOGLOBIN 9.3 g/dL 11.7-15.5 HEMATOCRIT 30.3 % 35.0-45.0 MCV 92.1 fL 80.0-100.0 MCH 28.3 pg 27.0-33.0 MCHC 30.7 g/dL 32.0-36.0 RDW 17.0 % 11.0-15.0 PLATELET COUNT 405 Thousand/uL 140-400 MPV 10.9 fL 7.5-12.5 ABSOLUTE NEUTROPHILS 6538 cells/uL 1500- 7800 ABSOLUTE LYMPHOCYTES 2390 cells/uL 850-3 900 ABSOLUTE MONOCYTES 451 cells/uL 200-950 ABSOLUTE EOSINOPHILS 125 cells/uL 15-500 ABSOLUTE BASOPHILS 96 cells/uL 0-200 NEUTROPHILS 68.1 % NRG LYMPHOCYTES 24.9 % NRG MONOCYTES 4.7 % NRG EOSINOPHILS 1.3 % NRG BASOPHILS 1.0 % NRG Encounters ACCT No. Visit Date/Time Discharge Status Pt. Type Provider Facility Loc./Unit Complaint [id number] 09/20/2016 17:09:00 Document Registration [id number] 11/26/2019 09:49:00 14:55:00 DIS [facility] [id number] 11/25/2019 12:48:00 13:15:00 DIS Outpatient JUANA HOLBROOK MD [facility] PREOP OVARIAN CANCER [id number] 11/21/2019 11:47:00 21:35:00 DIS Outpatient CHRISTIAN CROW DO [facility] 4THo ANEMIA DUE TO ACUTE BLO OD LOSS [id number] 11/12/2019 15:22:00 12:09:00 DIS Inpatient GERALD CRYSTAL MD [facility] 4TH SEPSIS,UTI, ANEMIA [id number] 04/05/2019 18:24:00 019 20:32:00 DIS Emergency LEE BOUCHER [facility] ER R LEG LAC [id number] 03/24/2019 08:31:00 019 23:59:59 CLS Outpatient EDWARDO MCCRAY MD [facility] RAD SCREENING [id number] 09/29/2017 14:14:00 018 16:36:00 DIS Emergency CITLALYLEE Reagan [facility] ER POSSIBLE UTI/DIZZINESS [id number] 08/01/2017 12:56:00 018 23:59:59 CLS Preadmit ADEOLA STILES MDM DEVELOPER [facility] WOUNDCARE [id number] 07/18/2017 13:46:00 017 23:59:59 CLS Outpatient ADEOLA STILES MDM DEVELOPER [facility] WOUNDCARE [id number] 07/04/2017 13:08:00 017 23:59:59 CLS Outpatient ADEOLA STILES MDM DEVELOPER [facility] WOUNDCARE [id number] 03/14/2017 16:19:00 017 23:59:59 CLS Outpatient BEKA DOTY [facility] RAD KIDNEY STONES, RECURREN T UTI,KEMAR POUCH [id number] 01/15/2017 19:43:00 017 10:40:00 DIS Inpatient GERALD CRYSTAL MD [facility] 4TH URINARY TRACT INFECTION ,SEPSIS [id number] 01/04/2017 07:18:00 017 13:30:00 DIS Inpatient KIRBY CEVALLOS DO [facility] 4TH SACRAL ULCERS; PARAPLEG IA [id number] 12/31/2016 12:05:00 017 12:45:00 DIS Outpatient KIRBY CEVALLOS DO [facility] PREOP SACRAL ULCERS,PARAPLEGI A [id number] 11/04/2016 15:34:00 017 23:59:59 CLS Outpatient EDWARDO MCCRAY MD [facility] UTI [id number] 11/02/2016 21:59:00 017 23:59:59 CLS Preadmit EDWARDO MCCRAY MD [facility] UTI [id number] 11/02/2016 14:39:00 017 23:59:59 CLS Outpatient EDWARDO MCCRAY MD [facility] SDC PLACE PICC LINE,1ST DOS E OF GENTAMYCIN [id number] 10/22/2016 10:41:00 017 23:59:59 CLS Outpatient EDWARDO MCCRAY MD [facility] UTI [id number] 09/21/2016 11:23:00 017 15:15:00 DIS Inpatient MICHELINE PINO, BLAIRE Cerda [facility] 4TH SWB [id number] 09/18/2016 18:57:00 017 11:20:00 DIS Inpatient WILL ROJAS, LEON Joy [facility] [address] URINARY TRACT INFECTION [id number] 09/08/2016 15:55:00 017 19:20:00 DIS Emergency LEE BOUCHER [facility] ER UTI SYMPTOMS [id number] 03/06/2016 10:21:00 016 23:59:59 CLS Outpatient EDWARDO LAMB MD [facility] UTI [id number] 08/29/2015 23:19:00 016 23:59:59 CLS Outpatient STEPHANIE ARRIOLA MD [facility] LABNPT [facility] (curr ent) use of antibiotics, [id number] 11/09/2014 16:38:00 015 17:22:00 DIS Emergency KIRBY FERNANDO MD [facility] ER JAW PAIN/INJ [id number] 07/29/2014 16:59:00 015 18:56:00 DIS Emergency DAYTON EISENBERG MD [facility] ER BLOOD SUGAR CHANGES [id number] 04/02/2014 18:49:00 014 21:17:00 DIS Emergency DAYTON EISENBERG MD [facility] ER CATHETER PROBLEMS [id number] 09/05/2015 07:21:00 Document Registration [id number] 09/01/2015 07:26:00 Document Registration [id number] 08/29/2015 07:36:00 Document Registration [id number] 09/22/2014 21:37:00 Document Registration [id number] 06/28/2016 18:06:00 Document Registration [id number] 12/02/2019 12:20:00 12/02/2019 23:59:5 9 CLS Outpatient EDWARDO MCCRAY MD [facility] [id number] 12/02/2019 12:20:00 Document Registration [id number] 11/24/2019 13:30:00 Document Registration [id number] 11/20/2019 12:25:00 Document Registration [id number] 10/19/2019 14:00:00 Document Registration [id number] 10/02/2019 10:30:00 Document Registration [id number] 08/06/2019 15:20:00 Document Registration [id number] 04/10/2019 14:40:00 Document Registration [id number] 09/11/2018 12:40:00 Document Registration [id number] 06/03/2018 16:40:00 Document Registration [id number] 12/02/2017 14:40:00 Document Registration [id number] 04/08/2016 07:05:00 Document Registration [id number] 10/19/2015 12:16:06 10/19/2015 23:59: 59 CLS Outpatient Christopher Merritt [id number] 03/30/2015 15:46:58 03/30/2015 23:59: 59 CLS Outpatient Christopher Merritt [id number] 03/28/2015 13:16:14 03/28/2015 23:59: 59 CLS Outpatient Christopher Merritt [id number] 03/08/2015 14:53:20 03/08/2015 23:59: 59 CLS Outpatient Christopher Merritt [id number] 06/08/2014 14:29:24 06/08/2014 23:59: 59 CLS Outpatient Mahesh Jackson [id number] 06/03/2014 11:58:38 06/03/2014 23:59: 59 [facility] Outpatient Mahesh Jackson [id number] 01/27/2016 14:24:10 Document Registration
[2019-12-25 15:05] LABS: BASOPHILS % (AUTO) 0 % (0-10); EOSINOPHILS # (AUTO) 0.2 10^3/uL (0.0-0.3); EOSINOPHILS % (AUTO) 1 % (0-10); HEMATOCRIT 28 % (35-52); HEMOGLOBIN 8.7 G/DL (11.5-16.0); LYMPHOCYTES # (AUTO) 2.6 X 10^3 (1.0-4.0); LYMPHOCYTES % (AUTO) 11 % (12-44); MEAN CORPUSCULAR HEMOGLOBIN 28 PG (25-34); MEAN CORPUSCULAR HGB CONC 31 G/DL (32-36); MEAN CORPUSCULAR VOLUME 89 FL (80-99); MEAN PLATELET VOLUME 9.8 FL (7.4-10.4); MONOCYTES # (AUTO) 1.3 X 10^3 (0.0-1.0); MONOCYTES % (AUTO) 6 % (0-12); NEUTROPHILS # (AUTO) 18.3 X 10^3 (1.8-7.8); NEUTROPHILS % (AUTO) 82 % (42-75); PLATELET COUNT 581 10^3/uL (130-400); RED CELL DISTRIBUTION WIDTH 17.8 % (10.0-14.5); WHITE BLOOD COUNT 22.4 10^3/uL (4.3-11.0)
[2019-12-25 15:21] LABS: INR 1.1 (0.8-1.4); PROTHROMBIN TIME PATIENT 14.3 SEC (12.2-14.7)
[2019-12-25 15:24] LABS: ANISOCYTOSIS MODERATE; BAND NEUTROPHILS 2 %; BASOPHILS % (MANUAL) 0 %; EOSINOPHILS % (MANUAL) 0 %; LYMPHOCYTES % (MANUAL) 8 %; MONOCYTES % (MANUAL) 2 %; NEUTROPHILS % (MANUAL) 88 %
[2019-12-25 15:25] LABS: ALBUMIN 3.5 GM/DL (3.2-4.5); POTASSIUM 4.5 MMOL/L (3.6-5.0)
[2019-12-25 15:26] LABS: CALCIUM 10.7 MG/DL (8.5-10.1)
[2019-12-25 15:28] LABS: TOTAL PROTEIN 8.4 GM/DL (6.4-8.2)
[2019-12-25 15:29] LABS: BILIRUBIN,TOTAL 0.2 MG/DL (0.1-1.0)
--- NOTE | 2019-12-25 15:29 | Diagnostic Imaging Report ---
PROCEDURE: CT pelvis without contrast. TECHNIQUE: Multiple contiguous axial images were obtained through the pelvis without the use of intravenous contrast. Sagittal and coronal reformations were performed. Auto Exposure Controls were utilized during the CT exam to meet ALARA standards for radiation dose reduction. INDICATION: Sacral ulcers. Patient also has elevated white blood cell count. COMPARISON: Comparison is made with CT study from 11/12/2019. FINDINGS: Ostomy in the left lower quadrant is noted. There is a periumbilical ostomy as well. Bladder is stable in configuration. Uterus is unremarkable. Left adnexal mass is similar in size. There are some mildly prominent lymph nodes in the inguinal regions bilaterally, largest on the right measuring 2.0 x 1.3 cm. Minimally prominent iliac and right obturator node is seen. There is some induration in the subcutaneous tissues in the midline at the level of the rectum and sacrum; however, no well-formed fluid collection is seen. There is some induration in the right buttock region as well. Soft tissue lateral to the right hip is stable. No definite bony destructive changes are identified to suggest osteomyelitis. IMPRESSION: There is some edema and induration in the posterior pelvis and right buttock region, perhaps owing to cellulitis. There is no well-formed fluid collection or abscess. No bony destructive changes are seen to suggest osteomyelitis. The remainder of the study appears to be stable when compared with prior CT from 11/12/2019. Dictated by: Dictated on workstation # [id number]
[2019-12-25 15:31] LABS: CREATININE SERUM 1.52 MG/DL (0.60-1.30)
[2019-12-25] MEDS ORDERED: PIPERACILLIN SODIUM/TAZOBACTAM 4.5 GM in NS (IVPB) 100 ML IV ONE (15:45)
[2019-12-25 16:08] LABS: BILIRUBIN,URINE NEGATIVE (NEGATIVE); CLARITY,URINE CLOUDY; COLOR,URINE YELLOW; GLUCOSE, URINE (UA) NEGATIVE (NEGATIVE); KETONES,URINE NEGATIVE (NEGATIVE); LEUKOCYTE ESTERASE ,URINE 2+ (NEGATIVE); NITRITE,URINE NEGATIVE (NEGATIVE); PROTEIN,URINE 2+ (NEGATIVE)
[2019-12-25 16:16] LABS: BACTERIA,URINE FEW /HPF; RBC,URINE 0-2 /HPF
[2019-12-25] MEDS: VANCOMYCIN INJECTION 750 MG in NS (IVPB) 250 ML IV SCH ×2 (17:06→20:31)
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
[2019-12-25] MEDS ORDERED: CLINDAMYCIN 150 MG (CLEOCIN) CAP PO ONE (17:45)
[2019-12-25] MEDS ORDERED: NS IV 1000 ML 1,000 ML IV SCH (17:58)
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
[2019-12-25 18:59] LABS: ABG BASE EXCESS -20.1 MMOL/L (-2.5-2.5); ABG OXYGEN SATURATION 98 % (94-100); ABG PO2 128 MMHG (79-93); ABG TCO2 7.2 MMOL/L (21.0-31.0)
[2019-12-25 19:00] LABS: PATIENT TEMP 36.7; VENTILATOR NO
[2019-12-25 19:01] LABS: ABG PCO2 18 MMHG (35-45)
--- NOTE | 2019-12-25 19:18 | NUR ---
upon entering pt room,pt and spouse state that they wish for pt to be transfered to [facility], physician notified of this
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
[2019-12-25] MEDS ORDERED: VANCOMYCIN 750 MG/VIAL IV ONE (20:16)
[2019-12-25] MEDS ORDERED: SODIUM BICARB 8.4% 50 MEQ/50 ML VIAL IV ONE (20:45)
[2019-12-25] MEDS ORDERED: D5 NS 1000 ML IV SOLUTION 1,000 ML IV SCH (20:45)
[2019-12-25 22:12] VITALS: BP 103/62
== END 2019-12-25 22:12 | disposition other institution (70) ==
LOC: EDUNIT# 13:35 → ER 13:36 → UNDOADMIN 18:28 → ICU 18:28
DX: A41.9 Sepsis, unspecified organism (principal); N39.0 Urinary tract infection, site not specified; L89.159 Pressure ulcer of sacral region, unspecified stage; L89.309 Pressure ulcer of unspecified buttock, unspecified stage; E11.9 Type 2 diabetes mellitus without complications; D64.9 Anemia, unspecified; Z79.4 Long term (current) use of insulin; Z85.43 Personal history of malignant neoplasm of ovary; Z85.42 Personal history of malignant neoplasm of other parts of uterus
CPT/HCPCS: 36415; 71045; 72192; 80053; 81000; 82805; 83605; 85007; 85027; 85610; 85730; 86141; 87040; 87070; 87077; 87088; 87186; 87205; 96361; 96365; 96375

== ENCOUNTER 2020-02-10 18:49 | Emergency (ER) | payer MEDICARE, MEDICAID ==
[~2020-02-10] VITALS: Ht 160 cm; Wt 71.0 kg
[~2020-02-10 18:49] MED LIST changes: +MULT-567 PO; -MULT1TAB69 PO
--- NOTE | 2020-02-10 19:12 | NUR ---
pt requested to stay in power chair at this time. pt informed of anticipated wait times for lab results.
[2020-02-10] MEDS ORDERED: NS IV 1000 ML 2,000 ML IV ONE (19:15)
[2020-02-10] MEDS ORDERED: CEFEPIME INJECTION 1,000 MG in WATER (STERILE) FOR INJECTION 10 ML IV ONE (19:15)
[2020-02-10] MEDS ORDERED: VANCOMYCIN INJECTION 750 MG in NS (IVPB) 250 ML IV SCH (19:15)
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
[2020-02-10 19:25] LABS: BASOPHILS % (AUTO) 0 % (0-10); EOSINOPHILS # (AUTO) 0.2 10^3/uL (0.0-0.3); EOSINOPHILS % (AUTO) 2 % (0-10); HEMATOCRIT 25 % (35-52); HEMOGLOBIN 7.4 G/DL (11.5-16.0); LYMPHOCYTES # (AUTO) 2.8 X 10^3 (1.0-4.0); LYMPHOCYTES % (AUTO) 23 % (12-44); MEAN CORPUSCULAR HEMOGLOBIN 26 PG (25-34); MEAN CORPUSCULAR HGB CONC 29 G/DL (32-36); MEAN CORPUSCULAR VOLUME 89 FL (80-99); MEAN PLATELET VOLUME 9.2 FL (7.4-10.4); MONOCYTES # (AUTO) 0.4 X 10^3 (0.0-1.0); MONOCYTES % (AUTO) 3 % (0-12); NEUTROPHILS # (AUTO) 8.8 X 10^3 (1.8-7.8); NEUTROPHILS % (AUTO) 72 % (42-75); PLATELET COUNT 575 10^3/uL (130-400); RED CELL DISTRIBUTION WIDTH 16.9 % (10.0-14.5); WHITE BLOOD COUNT 12.2 10^3/uL (4.3-11.0)
[2020-02-10 19:33] LABS: ALBUMIN 3.4 GM/DL (3.2-4.5); POTASSIUM 4.4 MMOL/L (3.6-5.0)
[2020-02-10 19:35] LABS: CALCIUM 8.8 MG/DL (8.5-10.1)
[2020-02-10 19:36] LABS: TOTAL PROTEIN 7.6 GM/DL (6.4-8.2)
[2020-02-10 19:37] LABS: BILIRUBIN,TOTAL 0.1 MG/DL (0.1-1.0); PROTHROMBIN TIME PATIENT 13.3 SEC (12.2-14.7)
[2020-02-10 19:39] LABS: CREATININE SERUM 1.5 MG/DL (0.60-1.30)
--- NOTE | 2020-02-10 19:51 | Diagnostic Imaging Report ---
INDICATION: Elevated white count. COMPARISON: Prior examination from 12/25/2019. EXAMINATION: Single view of the chest was obtained. FINDINGS: There are postsurgical changes in the upper thoracic spine. The heart size is normal. Lungs are clear. There is no pleural effusion or pneumothorax. Qgnkrw-r-Kkve catheter overlies the left hemithorax and has its tip in the superior vena cava. IMPRESSION: No acute cardiopulmonary abnormality. Dictated by: Dictated on workstation # [id number]
[2020-02-10 20:20] LABS: BILIRUBIN,URINE NEGATIVE (NEGATIVE); CLARITY,URINE SL CLOUDY; COLOR,URINE YELLOW; GLUCOSE, URINE (UA) NEGATIVE (NEGATIVE); KETONES,URINE NEGATIVE (NEGATIVE); LEUKOCYTE ESTERASE ,URINE NEGATIVE (NEGATIVE); NITRITE,URINE NEGATIVE (NEGATIVE); PH,URINE 6.5 (5-9); PROTEIN,URINE 2+ (NEGATIVE)
[2020-02-10 20:28] LABS: BACTERIA,URINE FEW /HPF; CALCIUM OXALATE CRYSTALS,UR RARE /LPF; HYALINE CASTS, URINE RARE /LPF
[2020-02-10 20:40] VITALS: BP 156/88
--- OUTSIDE RECORDS SUMMARY | 2020-02-11 00:51 | XMS REPORT | Encounter Summary ---
Author Author [facility] Organization [facility] Address Unknown Phone Unavailable Care Team Providers Care Atmospheric Technician Name Role Phone Pb Ibrahim MD Unavailable [...] Details Care Team Description Date Type Department 02/01/2020 Travel Social History Date Tobacco Use Types Packs/Day Years Used Never Smoker Smokeless Tobacco: Never Used Drinks/Week oz/Week Comments Alcohol Use Never Alcohol Habits Answer Date Recorded How often do you have a drink containing alcohol? Never 12/31/2019 How many drinks containing alcohol do you have on No t asked a typical day when you are drinking? How often do you have six or more drinks on one Not asked occasion? Sex Assigned at Date Recorded Female 12/31/2019 3:02 PM CDT Industry Job Start Date Occupation Not on file Not on file Not on file Travel End Travel History Travel Start No recent travel history available. Date Recorded COVID-19 Exposure Response 02/01/2020 1:11 PM CDT In the last month, have you been in contact with No / Unsure someone who was confirmed or suspected to have Coronavirus / COVID-19? documented as of this encounter Functional Status Date of Assessment Functional Status Response 02/01/2020 Does the patient have a hearing impairment: No 02/01/2020 Does the patient have a visual impairment: Yes 02/01/2020 Does the patient have impaired ambulation: No 02/01/2020 Does the patient have an activity of daily living No (ADL) impairment: 02/01/2020 Does the patient have an instrumental activity of No daily living (IADL) impairment: Date of Assessment Cognitive Status Response 02/01/2020 Does the patient have a cognitive impairment: No documented as of this encounter Plan of Treatment Care Team Description Date Type Specialty Cody Tirado MD [address] [place] [address] [phone] Pressure ulcer of sacral region, stage 3 (HCC) 02/15/2020 Hospital Encounter Kourtney Harvey APRN [address] [place] [address] 02/15/2020 Anesthesia Event Cody Tirado MD [address] [place] [address] EXCISION SACRAL PRESSURE ULCER - PREPARA TION FOR MUSCLE/ MYOCUTANEOUS FLAP/ SKIN GRAFT CLOSURE 02/15/2020 Surgery documented as of this encounter Goals Goal Patient Associated Recent Progress Patient-Stat Aut hor Goal Type Problems ed? Resume normal activities Hospital Yes Uma Burns RN Improve wellness, "to get Hospital Yes Kaylee es, better" CHARLIE Eaton documented as of this encounter Visit Diagnoses Not on filedocumented in this encounter Additional Health Concerns Resolved Time Infection Noted Time 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
--- OUTSIDE RECORDS SUMMARY | 2020-02-11 00:51 | XMS REPORT | Encounter Summary ---
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 Encounter Details Care Team Description Date Type Department Meg Oneill MD [address] [facility] [address] [place] [address] 02/01/2020 Office Visit [facility] [address] [place] [address] Social History Date Tobacco Use Types Packs/Day [...] Description Date Type Specialty Cody Tirado MD [address] [place] [phone] Pressure ulcer of sacral region, stage 3 (HCC) 02/15/2020 Hospital Encounter Kourtney Harvey APRN [id number] [place], [place] [id number] 02/15/2020 Anesthesia Event Cody Tirado MD [address] [place] [address] [phone] EXCISION SACRAL PRESSURE ULCER - PREPARA TION FOR MUSCLE/ MYOCUTANEOUS FLAP/ SKIN GRAFT CLOSURE 02/15/2020 Surgery documented as of this encounter Goals Goal Patient Associated Recent Progress Patient-Stat Aut hor Goal Type Problems ed? Resume normal activities Hospital Yes Uma Burns, RN Improve wellness, "to get Hospital Yes Kaylee es, better" CHARLIE Eaton documented as of this encounter Visit Diagnoses Not on filedocumented in this encounter Additional Health Concerns Resolved Time Infection Noted Time 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
--- OUTSIDE RECORDS SUMMARY | 2020-02-11 00:51 | XMS REPORT | Encounter Summary ---
Author Author [facility] Organization [facility] Address Unknown Phone Unavailable Care Team Providers Care Aircraft Systems Repairer Name Role Phone Pb Ibrahim MD Unavailable [...] Details Care Team Description Date Type Department Cody Tirado MD [address] [place] [address] Pressure ulcer of sacral region, stage 3 (HCC) (Primary Dx); Pre-op testing 02/03/2020 Prep for Case [facility] [address] [place] [address] Social History Date Tobacco Use Types Packs/Day [...] Date Type Specialty Cody Tirado MD [address] [place] [address] [phone] Pressure ulcer of sacral region, stage 3 (HCC) 02/15/2020 Hospital Encounter Kourtney Harvey APRN [id number] [place] [address] [phone] 02/15/2020 Anesthesia Event Cody Tirado MD [address] [place] [address] [phone] EXCISION SACRAL PRESSURE ULCER - PREPARA TION FOR MUSCLE/ MYOCUTANEOUS FLAP/ SKIN GRAFT CLOSURE 02/15/2020 Surgery documented as of this encounter Goals Goal Patient Associated Recent Progress Patient-Stat Aut hor Goal Type Problems ed? Resume normal activities Hospital Yes Uma Burns RN Improve wellness, "to get Hospital Yes Kaylee nagel, better" CHARLIE Eaton documented as of this encounter Visit Diagnoses Diagnosis Pressure ulcer of sacral region, stage 3 (HCC) Diagnosis Pressure ulcer of sacral region, stage 3 (HCC) Pre-op testing Preoperative examination, unspecified documented in this encounter Additional Health Concerns Resolved Time Infection Noted Time 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
--- OUTSIDE RECORDS SUMMARY | 2020-02-11 00:51 | XMS REPORT | Encounter Summary ---
Author Author [facility] Organization [facility] Address Unknown Phone Unavailable Care Team Providers Care Meteorologist Liaison Name Role Phone Pb Ibrahim MD Unavailable [...] Description Date Type Department Cody Tirado MD [address] [place] [address] Skin ulcer of sacrum, unspecified ulcer stage (HCC) (Primary Dx); Preop cardiovascular exam 02/10/2020 Ancillary [facility] [address] [place] [address] Anesthesia Record Responsible Anesthesiologist Anesthesia Start Time Anesthesi a Stop Time Procedure Name EXCISION SACRAL PRESSURE ULCER - PREPARATION FOR MUSCLE/ MYOCUTANEOUS FLAP/ SKIN GRAFT CLOSURE (N/A ) No events on file. Meds * No agents on file. * No blood administrations on file. Removal Type Details Placement Wounds 10/07/14; 1500; LT, RT; Groin 10/07/14 1500 by (NOT for CarmicKourtney lawrence RN Pressure Injuries) Nephrouret (SAS ETL DEVELOPER); (SAS ETL DEVELOPER); Abdomen, Right Lower 1911 by ranjan Michelle Drain Medial; ([place] Pouch) CHARLIE Gutiérrez Colostomy 12/26/19; 0000; Upper Left Quadrant 0000 by Sonja Baldwin RN Wounds 12/26/19; 0200; LT, RT; Abdomen; 12/25 0200 by Denny, (NOT for Moisture Associated Skin Damage Andrea rodriguez RN Pressure Injuries) Pressure 12/26/19; 0200; Y; LT; Heel; Unstageabl e 12/26/19 0200 by Denny, Hellen Casillas RN Pressure 12/26/19; 0200; Y; Posterior; Coccyx; 12/26/19 0200 by Denny, Injury Stage 4 CHARLIE Casillas Pressure 12/26/19; 0200; Y; Right, Posterior; 0 12/26/19 0200 by Denny, Injury Hip; Stage 3 CHARLIE Casillas Pressure 12/26/19; 0200; Y; Anterior; Pelvis; 0 12/26/19 0200 by Denny, Injury Unstageable CHARLIE Casillas Wounds 12/26/19; 0651; Posterior, Lower; Back; 12/26/19 0651 by Denny, (NOT for Moisture Associated Skin Damage Andrea rodriguez RN Pressure Injuries) Pressure 01/12/20; 1402; Y; Sacrum; Stage 4 (per 01/12/20 1402 by Hellen Kunz plastics) CHARLIE Benites Portacath 01/12/20 (access only for a lab and hep 01/12/20 1521 by juno Cross ); 1521 CHARLIE Gamble Pressure 01/22/20; 1554; Y; Left; Heel; 0 1554 by Dong, Injury Unstageable Abida, RN Wounds 01/24/20; 1425; Buttocks; Abrasion 1425 by Heath, (NOT for CHARLIE Abebe Pressure Injuries) documented in this encounter Social History Date Tobacco Use Types Packs/Day [...] history available. Date Recorded COVID-19 Exposure Response 02/10/2020 3:21 PM CDT In the last month, have you been in contact with No / Unsure someone who was confirmed or suspected to have Coronavirus / COVID-19? documented as of this encounter Last Filed Vital Signs Reading Time Taken Comments Vital Sign 116/68 02/10/2020 1:52 PM CDT aida Blood Pressure 112 02/10/2020 1:52 PM CDT Pulse 36.4 C (97.6 F) 02/10/2020 1:52 PM CDT Temperature - - Respiratory Rate 100% 02/10/2020 1:52 PM CDT Oxygen Saturation - - Inhaled Oxygen Concentration 70.3 kg (155 lb) 02/10/2020 1:52 PM CDT Weight 160 cm (5' 3") 02/10/2020 1:52 PM CDT Height 27.46 02/10/2020 1:52 PM CDT Body Mass Index documented in this [...] as of this encounter Patient Instructions * Pre-Anesthesia Patient Instructions* Zaida Burns, CHARLIE - 02/10/2020 1:45 PM CDT GENERAL INFORMATION Before you come to the hospital Make arrangements for a responsible adult to drive you home and stay with you for 24 hours following surgery. Bath/Shower Instructions Take a bath or shower using the special soap given to you in PAC. Use half th e bottle the night before, and the other half the morning of your procedure. Use clean towels with each bath or shower. Put on clean clothes after bath or shower. Avoid using lotion and oils. Sleep on clean sheets if bath or shower is done the night before procedure. Leave money, credit cards, jewelry, and any other valuables at home. The [facility] is not responsible for the loss or breakage of persona [employer] items. Remove nail upper sorbian, makeup and all jewelry (including piercings) before comin g to the hospital. The morning of your procedure: brush your teeth and tongue do not smoke do not shave the area where you will have surgery What to bring to the hospital ID/ Insurance Card Motion Picture Projectionist Apprentice card Official documents for legal guardianship Copy of your Living Will, Advanced Directives, and/or Durable Power of Attorn ey Small bag with a few personal belongings CPAP/BiPAP machine (including all supplies) Walker,cane, or motorized scooter Cases for glasses/hearing aids/contact lens (bring solutions for contacts) Dress in clean, loose, comfortable clothing Eating or drinking before surgery Do not eat or drink anything after 11:00 p.m. the day before your procedure ( including gum, mints, candy, or chewing tobacco) OR follow the specific instruct ions you were given by your Surgeon. You may have WATER ONLY up to 2 hours before arriving at the hospital. Other instructions Notify your surgeon if: there is a possibility that you are you become ill with a cough, fever, sore throat, nausea, vomiting or flu-like symptoms you have any open wounds/sores that are red, painful, draining, or are new si nce you last saw the doctor you need to cancel your procedure You will receive a call with your surgery arrival time from between 2:30pm an d 4:30pm the last business day before your procedure. If you do not receive a c all, please call [phone] before 4:30pm or [phone] after 4:30pm. Notify us at [facility]: if you need to cancel your procedure if you are going to be late Arrival at the [facility] [address] [place] [address] Park in the [address] Parking Garage, located directly across from the main entrance to the hospital. Bioinformatics Support Specialist parking is available from 7 AM to 4 PM Saturday through Saturday. Enter through the ground floor [facility] entrance and check in at the Inf ormation Desk in the lobby. They will validate your parking ticket and direct you to the next location. If you are a woman between the ages of 10 and 55, and have not had a hysterec yasmin, you will be asked for a urine sample prior to surgery. Please do not urin ate before arriving in the Surgery Waiting Room. Once there, check in and let t he attendant know if you need to provide a sample. Coronavirus (COVID19) Information If you get sick with fever (100.4F/38C or higher), cough, or have trouble breath ing: ? Call your primary care physician for questions or health needs ? Tell your doctor about any recent travel and your symptoms. ? Avoid contact with others. ? Notify your surgeon. For up to date information on the Coronavirus, visit the CDC website at CDC.gov. For the safety of all patients, visitors and staff as we work to contain COVID-1 9, we must dramatically restrict patient visitors. Current Visitor Policy (): One visitor per patient per day. Exceptions include: Two parents/guardian for patients younger than 18. End-of-life patients may be allowed additional support persons. Visitors should check with the patient's nurse. Only cancer patients at their exam visit may have one visitor with them. No vis itors are allowed for cancer patients receiving treatment/infusion services. Th is applies at all cancer center locations. Restrictions still apply for patients who test positive for COVID-19 (no visitor s). Visitors will continue to be screened at all entrances. They must be free of fe jeb and symptoms to be in our facilities. We ask visitors to follow these guide lines: Wear a mask at all times. Go directly to the nursing station in the unit you are visiting and do not linge r in public areas. Check in at the nursing station before going to the patient's room. Maintain a physical distance of six feet from all others. Follow elevator restrictions to four riding at a time - peak times are 6:30-7:30 a.m., noon and 6:30-7:30 p.m. Be aware cafeteria peak times are 11 a.m. - 1 p.m. Wash your hands frequently and cover your coughs and sneezes. * Pre-Anesthesia Medication Instructions* Jose Sultana, PHARMD - 02/10/2020 1:45 PM CDT YOUR MEDICATION LIST acetaminophen (TYLENOL) 500 mg tablet Take 1,000 mg by mouth every 8 hours a s needed for Pain (body aches). ascorbic acid (VITAMIN C) 500 mg tablet Take one tablet by mouth daily. atorvastatin (LIPITOR) 40 mg tablet Take one tablet by mouth daily. Hold thi s medication until finishing course of Fluconazole (Patient taking differently: Take 40 mg by mouth at bedtime daily.) ferrous sulfate 325 mg (65 mg iron) tablet Take 325 mg by mouth daily. insulin aspart U-100 (NOVOLOG) 100 unit/mL injection Use as per sliding scal e: Glucose 181-220, administer 2 units insulin Glucose 221-260, administer 4 units insulin Glucose 261-300, administer 6 units insulin Glucose 301-350, administer 8 units insulin Glucose 351-400, administer 10 units insulin Glucose >400mg/dL, administer 12 units insulin and contact your doctor insulin detemir U-100 (LEVEMIR FLEXTOUCH) 100 unit/mL (3 mL) injection pen I nject fifteen Units under the skin at bedtime daily. (Patient taking differently : Inject 30 Units under the skin at bedtime daily.) metFORMIN (GLUCOPHAGE) 500 mg tablet Take 500 mg by mouth twice daily with m eals. norethindrone (AYGESTIN) 5 mg tab Take one tablet by mouth daily. Indication s: endometriosis ondansetron (ZOFRAN) 4 mg tablet Take 1 Tab by mouth every 8 hours as needed for Nausea. sodium bicarbonate 650 mg tablet Take two tablets by mouth twice daily. sodium hypochlorite (DAKIN'S 1/2 STRENGTH) 0.25 % topical solution Use twice daily for wound care vitamins, multiple tablet Take 1 Tab by mouth daily. zinc sulfate 220 mg (50 mg elemental zinc) capsule Take two capsules by mout h daily. YOUR MEDICATION INSTRUCTIONS FOR SURGERY Please continue taking your medicine as your doctor has told you to UNLESS it is listed to stop below. 14 DAYS BEFORE SURGERY Do not take the following vitamins, herbals, and supplements: Vitamin C Multivitamin Do not start any new vitamins, herbals, or natural supplements before surgery. 7 DAYS BEFORE SURGERY DO NOT TAKE the following anti-inflammatory medications such as ibuprofen (Advil , Motrin) and naproxen (Aleve) You may use acetaminophen (Tylenol) DAY BEFORE SURGERY TAKE your medications the day before surgery as usual unless told differently Insulin Instructions ? Levemir ? Day before surgery - Inject 24 units the night before surgery. ? Novolog ? Day before surgery - Inject as usual. No Change. ? Morning of surgery NO Injection MORNING OF SURGERY DO NOT take these medications: Remaining vitamins/supplements Ointments/creams/lotions Metformin Novolog Sodium bicarbonate TAKE these medications with a sip (1-2 ounces) of water: Norethindrone Use all inhalers, nasal sprays, and eye drops as usual May take if needed: Ondansetron Please contact the clinic pharmacist with any changes to your medication list or medication questions before surgery. ? E-mail: [email or web address] Before going home from the hospital, please ask your doctor when you should re-s tart any medicine that was stopped for surgery. documented in this encounter Plan of Treatment Care Team Description Date Type Specialty Cody Tirado MD [address] [place] [address] Pressure ulcer of sacral region, stage 3 (HCC) 02/15/2020 Hospital Encounter Kourtney Harvey APRN [id number] [place] [address] [phone] 02/15/2020 Anesthesia Event Cody Tirado MD [address] [place] [address] [phone] EXCISION SACRAL PRESSURE ULCER - PREPARA TION FOR MUSCLE/ MYOCUTANEOUS FLAP/ SKIN GRAFT CLOSURE 02/15/2020 Surgery Order Schedule Name Type Priority Associated Diag noses ONE TIME for 1 Occurrences starting 01/26 until 02/10/2020 ECG 12-LEAD ECG Routine Preop cardiovas cular exam documented as of this encounter Goals Goal Patient Associated Recent Progress Patient-Stat Aut hor Goal Type Problems ed? Resume normal activities Hospital Yes Uma Burns RN Improve wellness, "to get Hospital Yes Kaylee nagel, better" CHARLIE Eaton documented as of this encounter Procedures Comments Procedure Name Priority Date/Time Associated Diag nosis CBC Routine 02/10/2020 Skin ulcer of s acrum, 3:10 PM CDT unspecified ulcer stage (HCC) TYPE & SCREEN (NOT Routine 02/10/2020 Skin ulcer of sacrum, CROSSMATCH ELIGIBLE) 3:10 PM CDT unspecified ulce r stage (HCC) COMPREHENSIVE METABOLIC Routine 02/10/2020 Skin u lcer of sacrum, PANEL 3:10 PM CDT unspecified ulcer s tage (HCC) documented in this encounter Results * TYPE & SCREEN (NOT CROSSMATCH ELIGIBLE) (02/10/2020 3:10 PM CDT) Record Check FOUND [facility] ABO/RH(D) A POS [facility] Antibody Screen POS [facility] FARIDA, Broad POS [facility] Spectrum Sirena FARIDA, Anti-IgG POS [facility] Sirena FARIDA, NEG [facility] Anti-Complement Specimen Blood, venous - Blood Performing Organization Address City/State/Zipcode Ph one Number [facility] [address] [place] [address] * COMPREHENSIVE METABOLIC PANEL (02/10/2020 3:10 PM CDT) Sodium 142 137 - 147 MMOL/L [facility] Potassium 5.2 (H) 3.5 - 5.1 MMOL/L [facility] Chloride 114 (H) 98 - 110 MMOL/L [facility] Glucose 96 70 - 100 MG/DL [facility] Blood Urea 16 7 - 25 MG/DL [facility] Nitrogen Creatinine 1.43 (H) 0.4 - 1.00 MG/DL [facility] Calcium 9.7 8.5 - 10.6 MG/DL [facility] Total Protein 9.0 (H) 6.0 - 8.0 G/DL [facility] Total Bilirubin 0.2 (L) 0.3 - 1.2 MG/DL [facility] Albumin 3.9 3.5 - 5.0 G/DL [facility] Alk Phosphatase 141 (H) 25 - 110 U/L [facility] AST (SGOT) 28 7 - 40 U/L [facility] CO2 11 (L) 21 - 30 MMOL/L [facility] ALT (SGPT) 24 7 - 56 U/L [facility] Anion Gap 17 (H) 3 - 12 [facility] eGFR Non 39 (L) >60 mL/min [facility] Comment: [place] The eGFR is not validated f or use in drug dosing adjustments. Continue to use estimated creatinine clearance per dosing reference text. Please contact the Clinical Pharmacist for questions. eGFR 47 (L) >60 mL/min [facility] [place] Comment: The eGFR is not validated for use in drug dosing adjustments. Continue to use estimated creatinine clearance per dosing reference text. Please contact the Clinical Pharmacist for questions. Specimen Blood Performing Organization Address City/State/Zipcode Ph one Number [facility] [address] [place] [address] * CBC (02/10/2020 3:10 PM CDT) White Blood 21.4 (H) 4.5 - 11.0 K/UL [facility] Cells RBC 3.47 (L) 4.0 - 5.0 M/UL [facility] Hemoglobin 9.7 (L) 12.0 - 15.0 GM/DL [facility] Hematocrit 30.4 (L) 36 - 45 % [facility] MCV 87.7 80 - 100 FL [facility] MCH 28.0 26 - 34 PG [facility] MCHC 31.9 (L) 32.0 - 36.0 G/DL [facility] RDW 18.3 (H) 11 - 15 % [facility] Platelet Count 706 (H) 150 - 400 K/UL [facility] MPV 8.6 7 - 11 FL [facility] Specimen Blood Performing Organization Address City/State/Zipcode Ph one Number [facility] [address] [place] [address] documented in this encounter Visit Diagnoses Diagnosis Pressure ulcer of sacral region, stage 3 (HCC) Diagnosis Skin ulcer of sacrum, unspecified ulcer stage (HCC) Preop cardiovascular exam Pre-operative cardiovascular examinatio n documented in this encounter Additional Health Concerns Resolved Time Infection Noted Time 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
--- OUTSIDE RECORDS SUMMARY | 2020-02-11 00:51 | XMS REPORT | Encounter Summary ---
Author Author [facility] Organization [facility] Address Unknown Phone Unavailable Care Team Providers Care Comp Field Case Manager Name Role Phone Pb Ibrahim MD Unavailable [...] Details Care Team Description Date Type Department 02/10/2020 Travel Social History Date Tobacco Use Types [...] Date Type Specialty Cody Tirado MD [address] [place] [address] [phone] Pressure ulcer of sacral region, stage 3 (HCC) 02/15/2020 Hospital Encounter Kourtney Harvey APRN [address] [place] [address] 02/15/2020 Anesthesia Event Cody Tirado MD [address] [place] [address] EXCISION SACRAL PRESSURE ULCER - PREPARA TION [...]
--- OUTSIDE RECORDS SUMMARY | 2020-02-11 00:52 | XMS REPORT | Encounter Summary ---
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 MAIN LAB Specimen Blood Performing Organization Address [facility] one Number MAIN LAB [address] [place] [address] * POC GLUCOSE (01/25/2020 5:59 PM CDT) Glucose, POC 214 (H) 70 - 100 MG/DL MAIN LAB Specimen Performing Organization Address [facility] one Number MAIN LAB [address] [place] [address] * ABDOMEN AP ONLY (01/25/2020 2:02 PM CDT) Specimen Impressions Performed At 1. Nonobstructive bowel gas pattern. [facility] RAD RESULT S 2. Probable left nephrolithiasis. By my electronic signature, I attest th at I have personally reviewed the images for this examination and formulated the interpretations and opinions expressed in this report Finalized by Willam Ferrara D.O. on 2019 3:35 PM. Dictated by Christopher Samaniego M.D. on 01/25/2020 2:12 PM. Narrative Performed At ABDOMEN AP ONLY [facility] RAD RESULTS Clinical Indication: Female, 49 years o ld. Nausea and vomiting Comparison: Radiograph from 02/20/2016, external CT from 12/25/2019 and renal ultrasound from 01/22/2020 Findings: Multiple supine views of the abdomen we re acquired. Right upper quadrant cholecystectomy cl ips and partially imaged thoracic spinal fixation hardware. Surgical clips in th e pelvis and multiple bowel anastomotic suture lines noted. Bowel loops are nor mal in caliber. Left lung base is well aerated. Bilateral hip arthrosis. A few calcifications are noted in the region of the left renal silhouette. Procedure Note Interface, Radiant Results - 01/25/2020 3:38 PM CDT ABDOMEN AP ONLY Clinical Indication: Female, 49 years old. Nausea and vomiting Comparison: Radiograph from 02/20/2016, external CT from 12/25/2019 and renal ultrasound from 01/22/2020 Findings: Multiple supine views of the abdomen were acquired. Right upper quadrant cholecystectomy clips and partially imaged thoracic spinal fixation hardware. Surgical clips in the pelvis and multiple bowel anastomotic suture lines noted. Bowel loops are normal in caliber. Left lung base is well aerated. Bilateral hip arthrosis. A few calcifications are noted in the region of the left renal silhouette. IMPRESSION 1. Nonobstructive bowel gas pattern. 2. Probable left nephrolithiasis. By my electronic signature, I attest that I have personally reviewed the images for this examination and formulated the interpretations and opinions expressed in this report Finalized by Willam Ferrara D.O. on 01/25/2020 3:35 PM. Dictated by Christopher Samaniego M.D. on 01/25/2020 2:12 PM. Performing Organization Address [facility] one Number [facility] * POC GLUCOSE (01/25/2020 12:41 PM CDT) Glucose, POC 244 (H) 70 - 100 MG/DL [facility] MAIN [facility] Specimen Performing Organization Address [facility] one Number [facility] [address] [place] [address] * POC GLUCOSE (01/25/2020 7:46 AM CDT) Glucose, POC 210 (H) 70 - 100 MG/DL [facility] MAIN [facility] Specimen Performing Organization Address [facility] Ph one Number MAIN LAB [address] [place] [address] * POC GLUCOSE (01/25/2020 7:46 AM CDT) Glucose, POC 199 (H) 70 - 100 MG/DL [facility] MAIN [facility] Specimen Performing Organization Address [facility] Ph one Number MAIN LAB [address] [place] [address] * PHOSPHORUS (01/25/2020 5:20 AM CDT) Phosphorus 3.3 2.0 - 4.5 MG/DL MAIN LAB Specimen Blood Performing Organization Address [facility] one Number MAIN LAB [address] [place] [address] * MAGNESIUM (01/25/2020 5:20 AM CDT) Magnesium 1.4 (L) 1.6 - 2.6 mg/dL MAIN LAB Specimen Blood Performing Organization Address [facility] one Number MAIN LAB [address] [place] [address] * COMPREHENSIVE METABOLIC PANEL (01/25/2020 5:20 AM CDT) Sodium 141 137 - 147 MMOL/L [facility] Potassium 4.1 3.5 - 5.1 MMOL/L [facility] Chloride 109 98 - 110 MMOL/L [facility] Glucose 182 (H) 70 - 100 MG/DL [facility] Blood Urea 21 7 - 25 MG/DL [facility] Nitrogen Creatinine 1.98 (H) 0.4 - 1.00 MG/DL [facility] Calcium 7.7 (L) 8.5 - 10.6 MG/DL [facility] Total Protein 5.7 (L) 6.0 - 8.0 G/DL [facility] Total Bilirubin 0.2 (L) 0.3 - 1.2 MG/DL [facility] Albumin 2.4 (L) 3.5 - 5.0 G/DL [facility] Alk Phosphatase 90 25 - 110 U/L [facility] AST (SGOT) 11 7 - 40 U/L [facility] CO2 21 21 - 30 MMOL/L [facility] ALT (SGPT) 16 7 - 56 U/L [facility] Anion Gap 11 3 - 12 [facility] eGFR Non 27 (L) >60 mL/min [facility] Comment: [place] The eGFR is not validated f or use in drug dosing adjustments. Continue to use estimated creatinine clearance per dosing reference text. Please contact the Clinical Pharmacist for questions. eGFR 32 (L) >60 mL/min [facility] [place] Comment: The eGFR is not validated for use in drug dosing adjustments. Continue to use estimated creatinine clearance per dosing reference text. Please contact the Clinical Pharmacist for questions. Specimen Blood Performing Organization Address [facility] one Number [facility] [address] [place] [address] * CBC AND DIFF (01/25/2020 5:20 AM CDT) White Blood 7.8 4.5 - 11.0 K/UL [facility] Cells RBC 2.72 (L) 4.0 - 5.0 M/UL [facility] Hemoglobin 7.8 (L) 12.0 - 15.0 GM/DL [facility] Hematocrit 23.6 (L) 36 - 45 % [facility] MCV 86.7 80 - 100 FL [facility] MCH 28.6 26 - 34 PG [facility] MCHC 33.0 32.0 - 36.0 G/DL [facility] RDW 17.4 (H) 11 - 15 % [facility] Platelet Count 282 150 - 400 K/UL [facility] MPV 8.2 7 - 11 FL [facility] Neutrophils 67 41 - 77 % [facility] Lymphocytes 25 24 - 44 % [facility] Monocytes 6 4 - 12 % [facility] Eosinophils 2 0 - 5 % [facility] Basophils 0 0 - 2 % [facility] Absolute 5.20 1.8 - 7.0 K/UL [facility] Neutrophil Count Absolute Lymph 1.90 1.0 - 4.8 K/UL [facility] Count Absolute 0.50 0 - 0.80 K/UL [facility] Monocyte Count Absolute 0.10 0 - 0.45 K/UL [facility] Eosinophil Count Absolute 0.00 0 - 0.20 K/UL [facility] Basophil Count Specimen Blood Performing Organization Address City/State/Zipcode Ph one Number MAIN LAB [address] [place] [address] * POC GLUCOSE (01/24/2020 9:41 PM CDT) Glucose, POC 157 (H) 70 - 100 MG/DL [facility] Specimen Performing Organization Address [facility] Ph one Number MAIN LAB [address] [place] [address] * POC GLUCOSE (01/24/2020 7:15 PM CDT) Glucose, POC 149 (H) 70 - 100 MG/DL MAIN LAB Specimen Performing Organization Address [facility] Ph one Number MAIN LAB [address] [place] [address] * TRANSFUSE RBC'S (01/24/2020 12:34 PM CDT) Specimen Blood * TRANSFUSE RBC'S (01/24/2020 12:34 PM CDT) Specimen Blood * POC GLUCOSE (01/24/2020 11:34 AM CDT) Glucose, POC 173 (H) 70 - 100 MG/DL MAIN LAB Specimen Performing Organization Address [facility] Ph one Number MAIN LAB [address] [place] [address] * POC GLUCOSE (01/24/2020 8:40 AM CDT) Glucose, POC 142 (H) 70 - 100 MG/DL MAIN LAB Specimen Performing Organization Address [facility] one Number MAIN LAB [address] [place] [address] * TYPE & CROSSMATCH (01/24/2020 7:52 AM CDT) Units Ordered 1 MAIN LAB Crossmatch 01/27/2020,2359 MAIN LAB Expires Record Check FOUND MAIN LAB ABO/RH(D) A POS MAIN LAB Antibody Screen POS MAIN LAB CONSISTENT WITH HISTORICAL ANTIBODY Unit Number [id number] MAIN LAB Blood Component RBC,ADSOL,LEUKO REDUCED,1ST [facility] MAIN L AB Type CONT. Unit Division 0 MAIN LAB Status OF Unit TRANSFUSED [facility] MAIN LAB Transfusion OK TO TRANSFUSE MAIN LAB Status Crossmatch COMPATIBLE, GEL [facility] Result Specimen Blood Performing Organization Address [facility] one Number MAIN LAB [address] [place] [address] * CBC (01/24/2020 5:30 AM CDT) White Blood 7.9 4.5 - 11.0 K/UL MAIN LAB Cells RBC 2.33 (L) 4.0 - 5.0 M/UL [facility] Hemoglobin 6.5 (L) 12.0 - 15.0 GM/DL MAIN LAB Hematocrit 19.9 (L) 36 - 45 % [facility] MCV 85.1 80 - 100 FL MAIN LAB MCH 27.8 26 - 34 PG MAIN LAB MCHC 32.6 32.0 - 36.0 G/DL MAIN LAB RDW 18.7 (H) 11 - 15 % MAIN LAB Platelet Count 360 150 - 400 K/UL MAIN LAB MPV 7.8 7 - 11 FL MAIN LAB Specimen Blood Performing Organization Address [facility] Ph one Number MAIN LAB [address] [place] [address] * IRON + BINDING CAPACITY + %SAT+ FERRITIN (01/24/2020 3:50 AM CDT) Iron 14 (L) 50 - 160 MCG/DL MAIN LAB Iron 209 (L) 270 - 380 MCG/DL MAIN LAB Binding-TIBC % Saturation 7 (L) 28 - 42 % MAIN LAB Ferritin 68 10 - 200 NG/ML MAIN LAB Specimen Performing Organization Address [facility] Ph one Number MAIN LAB [address] [place] [address] * PHOSPHORUS (01/24/2020 3:50 AM CDT) Phosphorus 3.1 2.0 - 4.5 MG/DL MAIN LAB Specimen Blood Performing Organization Address City/[facility] one Number MAIN LAB [address] [place] [address] * MAGNESIUM (01/24/2020 3:50 AM CDT) Magnesium 1.6 1.6 - 2.6 mg/dL [facility] MAIN [facility] Specimen Blood Performing Organization Address City/[facility] one Number MAIN LAB [address] [place] [address] * COMPREHENSIVE METABOLIC PANEL (01/24/2020 3:50 AM CDT) Sodium 142 137 - 147 MMOL/L [facility] Potassium 3.8 3.5 - 5.1 MMOL/L [facility] Chloride 108 98 - 110 MMOL/L [facility] Glucose 137 (H) 70 - 100 MG/DL [facility] Blood Urea 27 (H) 7 - 25 MG/DL [facility] Nitrogen Creatinine 2.54 (H) 0.4 - 1.00 MG/DL [facility] Calcium 7.3 (L) 8.5 - 10.6 MG/DL [facility] Total Protein 5.3 (L) 6.0 - 8.0 G/DL [facility] Total Bilirubin 0.2 (L) 0.3 - 1.2 MG/DL [facility] Albumin 2.4 (L) 3.5 - 5.0 G/DL [facility] Alk Phosphatase 86 25 - 110 U/L [facility] AST (SGOT) 12 7 - 40 U/L [facility] CO2 22 21 - 30 MMOL/L [facility] ALT (SGPT) 15 7 - 56 U/L [facility] Anion Gap 12 3 - 12 [facility] eGFR Non 20 (L) >60 mL/min [facility] Comment: [place] The eGFR is not validated f or use in drug dosing adjustments. Continue to use estimated creatinine clearance per dosing reference text. Please contact the Clinical Pharmacist for questions. eGFR 24 (L) >60 mL/min [facility] [place] Comment: The eGFR is not validated for use in drug dosing adjustments. Continue to use estimated creatinine clearance per dosing reference text. Please contact the Clinical Pharmacist for questions. Specimen Blood Performing Organization Address City/State/Zipcode Ph one Number [facility] [address] [place] [address] * CBC AND DIFF (01/24/2020 3:50 AM CDT) White Blood 8.0 4.5 - 11.0 K/UL [facility] Cells RBC 2.20 (L) 4.0 - 5.0 M/UL [facility] Hemoglobin 6.1 (L) 12.0 - 15.0 GM/DL [facility] Hematocrit 18.5 (L) 36 - 45 % [facility] MCV 84.0 80 - 100 FL [facility] MCH 27.7 26 - 34 PG MAIN LAB MCHC 33.0 32.0 - 36.0 G/DL MAIN LAB RDW 18.9 (H) 11 - 15 % MAIN LAB Platelet Count 301 150 - 400 K/UL MAIN LAB MPV 7.8 7 - 11 FL MAIN LAB Neutrophils 65 41 - 77 % MAIN LAB Lymphocytes 26 24 - 44 % [facility] Monocytes 6 4 - 12 % MAIN LAB Eosinophils 2 0 - 5 % MAIN LAB Basophils 1 0 - 2 % MAIN LAB Absolute 5.27 1.8 - 7.0 K/UL [facility] Neutrophil Count Absolute Lymph 2.04 1.0 - 4.8 K/UL [facility] Count Absolute 0.47 0 - 0.80 K/UL MAIN LAB Monocyte Count Absolute 0.16 0 - 0.45 K/UL MAIN LAB Eosinophil Count Absolute 0.05 0 - 0.20 K/UL MAIN LAB Basophil Count Specimen Blood Performing Organization Address [facility] Ph one Number MAIN LAB [address] [place] [address] * POC GLUCOSE (01/23/2020 9:55 PM CDT) Glucose, POC 170 (H) 70 - 100 MG/DL MAIN LAB Specimen Performing Organization Address [facility] Ph one Number MAIN LAB [address] [place] [phone] * POC GLUCOSE (01/23/2020 6:02 PM CDT) Glucose, POC 242 (H) 70 - 100 MG/DL MAIN LAB Specimen Performing Organization Address [facility] Ph one Number MAIN LAB [address] [place] [address] * MAGNESIUM (01/23/2020 2:06 PM CDT) Magnesium 1.9 1.6 - 2.6 mg/dL MAIN LAB Specimen Blood Performing Organization Address [facility] Ph one Number MAIN LAB [address] [place] [phone] * BASIC METABOLIC PANEL (01/23/2020 2:06 PM CDT) Sodium 141 137 - 147 MMOL/L MAIN LAB Potassium 4.0 3.5 - 5.1 MMOL/L [facility] Chloride 106 98 - 110 MMOL/L [facility] CO2 21 21 - 30 MMOL/L [facility] Anion Gap 14 (H) 3 - 12 [facility] Glucose 282 (H) 70 - 100 MG/DL [facility] MA[facility] Blood Urea 30 (H) 7 - 25 MG/DL [facility] MAIN [facility] Nitrogen Creatinine 3.27 (H) 0.4 - 1.00 MG/DL [facility]IN [facility] Calcium 7.2 (L) 8.5 - 10.6 MG/DL [facility] MAIN [facility] eGFR Non 15 (L) >60 mL/min MAIN LAB Comment: [place] The eGFR is not validated f or use in drug dosing adjustments. Continue to use estimated creatinine clearance per dosing reference text. Please contact the Clinical Pharmacist for questions. eGFR 18 (L) >60 mL/min MAIN LAB [place] Comment: The eGFR is not validated for use in drug dosing adjustments. Continue to use estimated creatinine clearance per dosing reference text. Please contact the Clinical Pharmacist for questions. Specimen Blood Performing Organization Address [facility] Ph one Number [facility] [address] [place] [address] * POC GLUCOSE (01/23/2020 11:23 AM CDT) Glucose, POC 159 (H) 70 - 100 MG/DL [facility] LAB Specimen Performing Organization Address [facility] one Number [facility] [address] [place] [address] * BASIC METABOLIC PANEL (01/23/2020 10:15 AM CDT) Sodium 147 137 - 147 MMOL/L MAIN LAB Potassium 3.8 3.5 - 5.1 MMOL/L MAIN LAB Chloride 109 98 - 110 MMOL/L MAIN LAB CO2 23 21 - 30 MMOL/L [facility] MA[facility] Anion Gap 15 (H) 3 - 12 [facility] MA[facility] Glucose 158 (H) 70 - 100 MG/DL [facility] MAIN [facility] Blood Urea 31 (H) 7 - 25 MG/DL [facility] MAIN [facility] Nitrogen Creatinine 3.31 (H) 0.4 - 1.00 MG/DL [facility] MAIN [facility] Calcium 7.2 (L) 8.5 - 10.6 MG/DL [facility] MAIN LAB eGFR Non 15 (L) >60 mL/min MAIN LAB Comment: [place] The eGFR is not validated f or use in drug dosing adjustments. Continue to use estimated creatinine clearance per dosing reference text. Please contact the Clinical Pharmacist for questions. eGFR 18 (L) >60 mL/min MAIN LAB [place] Comment: The eGFR is not validated for use in drug dosing adjustments. Continue to use estimated creatinine clearance per dosing reference text. Please contact the Clinical Pharmacist for questions. Specimen Blood Performing Organization Address City/[facility] Ph one Number MAIN LAB [address] [place] [address] * POC GLUCOSE (01/23/2020 8:06 AM CDT) Glucose, POC 103 (H) 70 - 100 MG/DL MAIN LAB Specimen Performing Organization Address [facility] Ph one Number MAIN LAB [address] [place] [address] * POC GLUCOSE (01/23/2020 6:53 AM CDT) Glucose, POC 69 (L) 70 - 100 MG/DL MAIN LAB Specimen Performing Organization Address [facility] one Number MAIN LAB [address] [place] [address] * POC GLUCOSE (01/23/2020 6:27 AM CDT) Glucose, POC 67 (L) 70 - 100 MG/DL MAIN LAB Specimen Performing Organization Address [facility] one Number MAIN LAB [address] [place] [address] * LACTIC ACID (BG - RAPID LACTATE) (01/23/2020 4:00 AM CDT) Lactic Acid,BG 2.5 (H) 0.5 - 2.0 MMOL/L MAIN LAB Specimen Performing Organization Address [facility] Ph one Number MAIN LAB [address] [place] [address] * PHOSPHORUS (01/23/2020 4:00 AM CDT) Phosphorus 5.3 (H) 2.0 - 4.5 MG/DL MAIN LAB Specimen Blood Performing Organization Address [facility] one Number MAIN LAB [address] [place] [address] * MAGNESIUM (01/23/2020 4:00 AM CDT) Magnesium 2.3 1.6 - 2.6 mg/dL [facility] MAIN [facility] Specimen Blood Performing Organization Address [facility] one Number [facility] [address] [place] [address] * COMPREHENSIVE METABOLIC PANEL (01/23/2020 4:00 AM CDT) Sodium 147 137 - 147 MMOL/L [facility] MAIN [facility] Potassium 3.5 3.5 - 5.1 MMOL/L [facility] Chloride 111 (H) 98 - 110 MMOL/L [facility] MAIN [facility] Glucose 69 (L) 70 - 100 MG/DL [facility] MAIN [facility] Blood Urea 34 (H) 7 - 25 MG/DL [facility] MAIN [facility] Nitrogen Creatinine 3.52 (H) 0.4 - 1.00 MG/DL [facility] MAIN [facility] Calcium 7.2 (L) 8.5 - 10.6 MG/DL [facility] MAIN [facility] Total Protein 5.7 (L) 6.0 - 8.0 G/DL [facility] MAIN [facility] Total Bilirubin 0.2 (L) 0.3 - 1.2 MG/DL [facility] MAIN [facility] Albumin 2.5 (L) 3.5 - 5.0 G/DL [facility] MAIN [facility] Alk Phosphatase 83 25 - 110 U/L [facility] MAIN [facility] AST (SGOT) 12 7 - 40 U/L [facility] MAIN [facility] CO2 19 (L) 21 - 30 MMOL/L [facility] MAIN [facility] ALT (SGPT) 18 7 - 56 U/L [facility] MAIN [facility] Anion Gap 17 (H) 3 - 12 [facility] MAIN LAB eGFR Non 14 (L) >60 mL/min [facility] MAIN LAB Comment: [place] The eGFR is not validated f or use in drug dosing adjustments. Continue to use estimated creatinine clearance per dosing reference text. Please contact the Clinical Pharmacist for questions. eGFR 17 (L) >60 mL/min [facility] MAIN LAB [place] Comment: The eGFR is not validated for use in drug dosing adjustments. Continue to use estimated creatinine clearance per dosing reference text. Please contact the Clinical Pharmacist for questions. Specimen Blood Performing Organization Address City/State/Zipcode Ph one Number [facility] MAIN [facility] [address] [place] [phone] * BASIC METABOLIC PANEL (01/22/2020 10:30 PM CDT) Sodium 143 137 - 147 MMOL/L [facility] MAIN [facility] Potassium 3.9 3.5 - 5.1 MMOL/L [facility] MAIN [facility] Chloride 113 (H) 98 - 110 MMOL/L [facility] MAIN [facility] CO2 14 (L) 21 - 30 MMOL/L [facility] MAIN [facility] Anion Gap 16 (H) 3 - 12 [facility] MAIN [facility] Glucose 151 (H) 70 - 100 MG/DL [facility] MAIN [facility] Blood Urea 34 (H) 7 - 25 MG/DL [facility] MAIN [facility] Nitrogen Creatinine 3.71 (H) 0.4 - 1.00 MG/DL [facility] MAIN [facility] Calcium 7.3 (L) 8.5 - 10.6 MG/DL [facility] MAIN LAB eGFR Non 13 (L) >60 mL/min [facility] MAIN LAB Comment: [place] The eGFR is not validated f or use in drug dosing adjustments. Continue to use estimated creatinine clearance per dosing reference text. Please contact the Clinical Pharmacist for questions. eGFR 16 (L) >60 mL/min [facility] MAIN LAB [place] Comment: The eGFR is not validated for use in drug dosing adjustments. Continue to use estimated creatinine clearance per dosing reference text. Please contact the Clinical Pharmacist for questions. Specimen Blood Performing Organization Address City/[facility] one Number MAIN LAB [address] [place] [address] * Critical Care (01/22/2020 9:32 PM CDT) Narrative Performed At Stanley Atkins MD 01/23/2020 6:40 AM Critical Care Performed by: Stanley Atkins MD Authorized by: Stanley Atkins MD Total critical care time in minutes: 45 Critical care was exclusive of separate ly billable procedures and treating other patients and teaching time. Critical care was necessary to treat or prevent imminent or life-threatening deterioration of the f ollowing conditions: dehydration, metabolic crisis and sepsis. Critical care was spent personally by delano martinez on the following activities: blood draw for specimens, discussions w [facility] consultants, evaluation of patient's response to treatment, examin ation of patient, obtaining history from patient or surrogate, ordering and performing treatments and interventions, ordering and review of l aboratory studies, ordering and review of radiographic studies, re-eval uation of patient's condition and review of old charts. Attending Attestation: I personally per formed the procedure myself. * POC GLUCOSE (01/22/2020 8:06 PM CDT) Glucose, POC 155 (H) 70 - 100 MG/DL [facility] MAIN LAB Specimen Performing Organization Address City/[facility] one Number MAIN LAB [address] [place] [address] * LACTIC ACID (BG - RAPID LACTATE) (01/22/2020 8:05 PM CDT) Lactic Acid,BG 2.5 (H) 0.5 - 2.0 MMOL/L MAIN LAB Specimen Blood Performing Organization Address [facility] one Number MAIN LAB [address] [place] [phone] * PHOSPHORUS (01/22/2020 6:13 PM CDT) Phosphorus 6.5 (H) 2.0 - 4.5 MG/DL MAIN LAB Specimen Blood Performing Organization Address [facility] one Number MAIN LAB [address] [place] [address] * MAGNESIUM (01/22/2020 6:13 PM CDT) Magnesium 1.8 1.6 - 2.6 mg/dL MAIN LAB Specimen Blood Performing Organization Address [facility] one Number MAIN LAB [address] [place] [phone] * BASIC METABOLIC PANEL (01/22/2020 6:13 PM CDT) Sodium 140 137 - 147 MMOL/L MAIN LAB Potassium 4.5 3.5 - 5.1 MMOL/L MAIN LAB Chloride 115 (H) 98 - 110 MMOL/L MAIN LAB CO2 9 (LL) 21 - 30 MMOL/L [facility] MAIN LAB Comment: CRITICAL VALUE CALLED TO AND READ BACK BY/TIME/TECH CHARLIE BAIG/[id number] Anion Gap 16 (H) 3 - 12 MAIN LAB Glucose 167 (H) 70 - 100 MG/DL MAIN LAB Blood Urea 36 (H) 7 - 25 MG/DL MAIN LAB Nitrogen Creatinine 4.03 (H) 0.4 - 1.00 MG/DL MAIN LAB Calcium 7.5 (L) 8.5 - 10.6 MG/DL MAIN LAB eGFR Non 12 (L) >60 mL/min MAIN LAB Comment: [place] The eGFR is not validated f or use in drug dosing adjustments. Continue to use estimated creatinine clearance per dosing reference text. Please contact the Clinical Pharmacist for questions. eGFR 14 (L) >60 mL/min [facility] MAIN LAB [place] Comment: The eGFR is not validated for use in drug dosing adjustments. Continue to use estimated creatinine clearance per dosing reference text. Please contact the Clinical Pharmacist for questions. Specimen Blood Performing Organization Address City/State/Zipcode Ph one Number [facility] MAIN [facility] [address] [place] [address] * US RENAL BLADDER LTD (01/22/2020 6:00 PM CDT) Specimen Impressions Performed At Diffuse renal parenchymal disease in the solitary lef t kidney. No [facility] RAD RESULTS hydronephrosis. Finalized by Ladi Weir M.D. on 020 7:36 PM. Dictated by Ladi Weir M.D. on 01/22/2020 7:31 PM. Narrative Performed At RENAL ULTRASOUND [facility] RAD RESULTS CLINICAL INDICATION: Female, 49 years o ld; acute renal failure TECHNIQUE: Multiple grayscale ultrasoun d images were obtained through the kidneys and urinary bladder. COMPARISON: CT abdomen/pelvis performed at an outside facility 03/14/2017 FINDINGS: Right renal fossa: Gas-filled bowel loo ps are now positioned in the right renal fossa. No recurrent soft tissue mass id entified. Left kidney: Measures 11.1 x 6.6 cm. No hydronephrosis. Cortical lobulation with increased parenchymal echogenicity. Karis pouch: Incompletely distended, grossly normal. Other findings: Hepatomegaly and diffus e hepatic steatosis. Procedure Note Interface, Radiant Results - 01/22/2020 7:39 PM CDT RENAL ULTRASOUND CLINICAL INDICATION: Female, 49 years old; acute renal failure TECHNIQUE: Multiple grayscale ultrasound images were obtained through the kidneys and urinary bladder. COMPARISON: CT abdomen/pelvis performed at an outside facility 03/14/2017 FINDINGS: Right renal fossa: Gas-filled bowel loops are now positioned in the right renal fossa. No recurrent soft tissue mass identified. Left kidney: Measures 11.1 x 6.6 cm. No hydronephrosis. Cortical lobulation with increased parenchymal echogenicity. [place] pouch: Incompletely distended, grossly normal. Other findings: Hepatomegaly and diffuse hepatic steatosis. IMPRESSION Diffuse renal parenchymal disease in the solitary left kidney. No hydronephrosis. Finalized by Ladi Weir M.D. on 01/22/2020 7:36 PM. Dictated by Ladi Weir M.D. on 01/22/2020 7:31 PM. Performing Organization Address [facility] Ph one Number RAD RESULTS * LACTIC ACID (BG - RAPID LACTATE) (01/22/2020 5:34 PM CDT) Lactic Acid,BG 4.0 (HH) 0.5 - 2.0 MMOL/L MAIN LAB Comment: CRITICAL VALUE CALLED TO AND READ BACK BY/TIME/JERILYN Baig RN/[id number] Specimen Blood Performing Organization Address [facility] Ph one Number MAIN LAB [address] [place] [address] * POC GLUCOSE (01/22/2020 5:33 PM CDT) Glucose, POC 184 (H) 70 - 100 MG/DL MAIN LAB Specimen Performing Organization Address [facility] one Number MAIN LAB [address] [place] [address] * LACTIC ACID (BG - RAPID LACTATE) (01/22/2020 4:17 PM CDT) Lactic Acid,BG 3.3 (H) 0.5 - 2.0 MMOL/L MAIN LAB Specimen Performing Organization Address [facility] Ph one Number MAIN LAB [address] [place] [address] * BLOOD GASES, CENTRAL VENOUS (01/22/2020 4:17 PM CDT) [facility] Signature PH-Central 7.20 (L) 7.30 - 7.40 MAIN LAB Venous PCO2-Central 20 (L) >40 MMHG MAIN LAB Venous PO2-Central 42 40 - 50 MMHG MAIN LAB Venous Base 18.9 MMOL/L MAIN LAB Deficit-Central Venous O2 Sat 68.2 65 - 75 % MAIN LAB (Calc)-Central Venous Bicarb-Central 9.8 MMOL/L MAIN LAB Venous Specimen Blood Performing Organization Address [facility] one Number MAIN LAB [address] [place] [address] * OSMOLALITY-URINE RANDOM (01/22/2020 4:09 PM CDT) Osmolality-Urin 331 50 - 1,400 MOS/KG MAIN LAB e Specimen Urine - Urine Performing Organization Address [facility]/Zipcode Ph one Number KU MAIN LAB [address] [place] [address] * UREA NITROGEN-URINE RANDOM (01/22/2020 4:09 PM CDT) Urea Nitrogen 141 MG/DL KU MAIN LAB Specimen Urine - Urine Performing Organization Address [facility] Ph one Number [facility] MAIN LAB [address] [place] [address] * CREATININE-URINE RANDOM (01/22/2020 4:09 PM CDT) Creatinine, 135 MG/DL KU MAIN LAB Random Specimen Urine - Urine Performing Organization Address [facility] Ph one Number [facility] MAIN LAB [address] [place] [address] * SODIUM-URINE RANDOM (01/22/2020 4:09 PM CDT) Sodium, Random 29 MMOL/L KU MAIN LAB Specimen Urine - Urine Performing Organization Address [facility] Ph one Number KU MAIN LAB [address] [place] [address] * URINALYSIS, MICROSCOPIC (01/22/2020 4:09 PM CDT) WBCs,UA 2-10 0 - 2 /HPF KU MAIN LAB RBCs,UA 2-10 0 - 3 /HPF K[facility] MAIN LAB Squamous 0-2 0 - 5 K[facility] MAIN LAB Epithelial Cells Hyaline Cast 2-5 KU MAIN LAB Specimen Urine - Urine Performing Organization Address [facility] Ph one Number KU MAIN LAB [address] [place] [address] * URINALYSIS DIPSTICK (01/22/2020 4:09 PM CDT) Color,UA YELLOW KU MAIN LAB Turbidity,UA CLEAR CLEAR-CLEAR [facility] MAIN LAB Specific 1.018 1.003 - 1.035 KU MAIN LAB Sayre-Urine pH,UA 7.0 5.0 - 8.0 K[facility] MAIN LAB Protein,UA 2+ (A) NEG-NEG K[facility] MAIN LAB Glucose,UA NEG NEG-NEG [facility] MAIN LAB Ketones,UA NEG NEG-NEG K[facility] MAIN LAB Bilirubin,UA NEG NEG-NEG K[facility] MAIN LAB Blood,UA 1+ (A) NEG-NEG K[facility] MAIN LAB Urobilinogen,UA NORMAL NORM-NORMAL K[facility] MAIN LAB Nitrite,UA NEG NEG-NEG [facility] MAIN LAB Leukocytes,UA NEG NEG-NEG MAIN LAB Urine Ascorbic NEG NEG-NEG MAIN LAB Acid, UA Specimen Urine - Urine Performing Organization Address [facility] one Number MAIN LAB [address] [place] [address] * POC LACTATE (01/22/2020 1:50 PM CDT) LACTIC ACID POC 2.1 (H) 0.5 - 2.0 MMOL/L MAIN LAB Specimen Performing Organization Address [facility] Ph one Number MAIN LAB [address] [place] [address] * POC BLOOD GAS CELESTINA (01/22/2020 1:46 PM CDT) PH-CELESTINA-POC 7.17 (LL) 7.30 - 7.40 MAIN LAB MYF0-AIF-MNK 18 (L) 36 - 50 MMHG KU MAIN LAB PO2-CELESTINA-POC 45 33 - 48 MMHG MAIN LAB Base 22.0 MMOL/L MAIN LAB Def-CELESTINA-POC O2 Sat-CELESTINA-POC 70.0 55 - 71 % MAIN LAB Bicarbonate-CELESTINA 6.6 MMOL/L MAIN LAB -POC Specimen Performing Organization Address [facility] one Number MAIN LAB [address] [place] [id number] * MAGNESIUM (01/22/2020 1:44 PM CDT) Magnesium 1.4 (L) 1.6 - 2.6 mg/dL MAIN LAB Specimen Blood Performing Organization Address [facility] one Number MAIN LAB [address] [place] [address] * BASIC METABOLIC PANEL (01/22/2020 1:44 PM CDT) Sodium 138 137 - 147 MMOL/L MAIN LAB Potassium 5.4 (H) 3.5 - 5.1 MMOL/L MAIN LAB Chloride 116 (H) 98 - 110 MMOL/L MAIN LAB CO2 8 (LL) 21 - 30 MMOL/L MAIN LAB Comment: CRITICAL VALUE CALLED TO AND READ BACK BY/TIME/TECH CHARLIE BEACH at 01/22/2020 14:39:19 by 1121 Anion Gap 14 (H) 3 - 12 K[facility] MAIN LAB Glucose 231 (H) 70 - 100 MG/DL KU MAIN LAB Blood Urea 38 (H) 7 - 25 MG/DL K[facility] MAIN LAB Nitrogen Creatinine 4.24 (H) 0.4 - 1.00 MG/DL K[facility] MAIN LAB Calcium 7.8 (L) 8.5 - 10.6 MG/DL KU MAIN LAB eGFR Non 11 (L) >60 mL/min K[facility] MAIN LAB Comment: [place] The eGFR is not validated f or use in drug dosing adjustments. Continue to use estimated creatinine clearance per dosing reference text. Please contact the Clinical Pharmacist for questions. eGFR 13 (L) >60 mL/min KU MAIN LAB [place] Comment: The eGFR is not validated for use in drug dosing adjustments. Continue to use estimated creatinine clearance per dosing reference text. Please contact the Clinical Pharmacist for questions. Specimen Blood Performing Organization Address [facility] one Number MAIN LAB [address] [place] [address] * POC GLUCOSE (01/22/2020 1:32 PM CDT) Glucose, POC 235 (H) 70 - 100 MG/DL MAIN LAB Specimen Performing Organization Address [facility] Ph one Number MAIN LAB [address] [place] [address] * POC GLUCOSE (01/22/2020 1:02 PM CDT) Glucose, POC 227 (H) 70 - 100 MG/DL MAIN LAB Specimen Performing Organization Address [facility] Ph one Number MAIN LAB [address] [place] [address] * POC GLUCOSE (01/22/2020 12:29 PM CDT) Glucose, POC 237 (H) 70 - 100 MG/DL MAIN LAB Specimen Performing Organization Address [facility] Ph one Number MAIN LAB [address] [place] [address] * CHEST SINGLE VIEW (01/22/2020 12:13 PM CDT) Specimen Impressions Performed At Stable chest radiograph demonstrating no acute cardio pulmonary abnormalities. [facility] RAD RESULTS Finalized by Maxi Street M.D. on 2019 12:51 PM. Dictated by Maxi Street M.D. on 01/22/2020 12:50 PM. Narrative Performed At CHEST SINGLE VIEW K[facility] RAD RESULTS History: fever. Technique: Single portable AP upright view of the chest was obtained. Comparison: Comparison is made to an examination of 12/25/2019. Findings: Cardiac size remains normal. There is n o vascular congestion. No acute interstitial or alveolar opacities are identified. No parenchymal masses or nodules are detected. Hilar and mediast inal configurations are stable. Posterior spinal fixation hardware extending from the upper third of the mid thoracic spine is intact. A left subclavian Infu se-a-Port catheter has its tip at the level of the low SVC. Healed fracture d eformity of the left clavicle is noted. Procedure Note Interface, Radiant Results - 01/22/2020 12:54 PM CDT CHEST SINGLE VIEW History: fever. Technique: Single portable AP upright view of the chest was obtained. Comparison: Comparison is made to an examination of 12/25/2019. Findings: Cardiac size remains normal. There is no vascular congestion. No acute interstitial or alveolar opacities are identified. No parenchymal masses or nodules are detected. Hilar and mediastinal configurations are stable. Posterior spinal fixation hardware extending from the upper third of the mid thoracic spine is intact. A left subclavian Zulmcy-j-Lhii catheter has its tip at the level of the low SVC. Healed fracture deformity of the left clavicle is noted. IMPRESSION Stable chest radiograph demonstrating no acute cardiopulmonary abnormalities. Finalized by Maxi Street M.D. on 01/22/2020 12:51 PM. Dictated by Maxi Street M.D. on 01/22/2020 12:50 PM. Performing Organization Address [facility] Ph one Number [facility] RAD RESULTS * POC GLUCOSE (01/22/2020 11:47 AM CDT) Glucose, POC 268 (H) 70 - 100 MG/DL K[facility] MAIN LAB Specimen Performing Organization Address City/[facility] Ph one Number MAIN LAB [address] [place] [address] * CULTURE-BLOOD W/SENSITIVITY (01/22/2020 11:32 AM CDT) Battery Name BLOOD CULTURE KU MAIN LAB Specimen BLOOD [facility] MAIN LAB Description NO SITE INDICATED Special NONE [facility]U MAIN LAB Requests Culture NO GROWTH 5 DAYS KU MAIN LAB Report Status FINAL [facility] MAIN LAB 01/28/2020 Specimen Blood Performing Organization Address [facility] Ph one Number MAIN LAB [address] [place] [address] * POC IONIZED CALCIUM (01/22/2020 11:31 AM CDT) Ionized 1.30 1.0 - 1.3 MMOL/L MAIN LAB Calcium-POC Specimen Performing Organization Address [facility] Ph one Number MAIN LAB [address] [place] [address] * POC SODIUM (01/22/2020 11:31 AM CDT) Sodium-POC 137 137 - 147 MMOL/L MAIN LAB Specimen Performing Organization Address [facility] Ph one Number MAIN LAB [address] [place] [address] * POC POTASSIUM (01/22/2020 11:31 AM CDT) Potassium-POC 6.9 (HH) 3.5 - 5.1 MMOL/L MAIN LAB Specimen Performing Organization Address [facility] Ph one Number MAIN LAB [address] [place] [address] * POC HEMATOCRIT (01/22/2020 11:31 AM CDT) Hemoglobin POC 9.2 (L) 12.0 - 15.0 GM/DL MAIN LAB Hematocrit POC 27.0 (L) 36 - 45 % [facility] MAIN LAB Specimen Performing Organization Address [facility] Ph one Number MAIN LAB [address] [place] [address] * POC BLOOD GAS ARTERIAL (01/22/2020 11:31 AM CDT) PH-ART-POC 7.08 (LL) 7.35 - 7.45 MAIN LAB [id number]-[id number] 21 (L) 35 - 45 MMHG MAIN LAB PO2-ART-POC 29 (LL) 80 - 100 MMHG MAIN LAB Base 24.0 MMOL/L MAIN LAB Def-ART-POC O2 Sat-ART-POC 35.0 (L) 95 - 99 % MAIN LAB Bicarbonate-ART 6.2 (L) 21 - 28 MMOL/L MAIN LAB -POC Specimen Performing Organization Address [facility] Ph one Number MAIN LAB [address] [place] [address] * POC LACTATE (01/22/2020 10:19 AM CDT) LACTIC ACID POC 2.3 (H) 0.5 - 2.0 MMOL/L MAIN LAB Specimen Performing Organization Address [facility] Ph one Number MAIN LAB [address] [place] [address] * PROCALCITONIN (01/22/2020 10:15 AM CDT) Procalcitonin 1.09 (H) <0.11 ng/mL MAIN LAB Specimen Performing Organization Address [facility] one Number MAIN LAB [address] [place] [address] * OSMOLALITY (01/22/2020 10:15 AM CDT) Osmolality 310 (H) 280 - 307 MOSMOL/KG MAIN LA B Specimen Performing Organization [facility] one Number MAIN LAB [address] [place] [address] * BETA HYDROXYBUTYRATE (KETONES) (01/22/2020 10:15 AM CDT) Beta 0.8 (H) <0.3 MMOL/L MAIN LAB Hydroxybutyrate Comment: Beta hydroxybutyrate (BOHB) is the most abundant ketone (78%), followed by acetoacetate (20%) and acetone (2%). Measurement BOHB is recommended to assess ketones in DKA. Expected BOHB Results for DKA: Initial presentation high/increasing During treatment decreasing Resolved decreasing/normal Specimen Performing Organization Address [facility] one Number MAIN LAB [address] [place] [address] * CREATINE KINASE-CPK (01/22/2020 10:15 AM CDT) Creatine Kinase 178 21 - 215 U/L MAIN LAB Specimen Performing Organization Address [facility] one Number MAIN LAB [address] [place] [address] * COVID-19 (SARS-COV-2) PCR (01/22/2020 10:15 AM CDT) COVID-19 NASOPHARYNGEAL SWAB [facility] MAIN LAB (SARS-CoV-2) PCR Source COVID-19 NOT DETECTED DN-NOT DETECTED [facility] (SARS-CoV-2) Comment: PCR This assay is designed to detect the S and/or ORF1ab genes of SARS-CoV-2 using nucleic acid amplification. A "Not Detected" result does not preclude the possibility of SARS-CoV-2 infection since the adequacy of sample collection and/or low viral burden may result in the presence of viral nucleic acids below the analytical sensitivity of this test method. Test results should be used along with other clinical and laboratory data in making the diagnosis. Test parameters have not been validated for screening in asymptomatic patients.This test has not been FDA cleared or approved. This test is authorized for use under the FDA Emergency Use Authorization and performance characteristics have been verified by the [facility]. Fact sheet for providers: https://www.fda.gov/media/1362 85/download Fact sheet for patients: https://www.fda.gov/media/8429 87/download Specimen Nasopharyngeal Swab Performing Organization Address [facility] Ph one Number MAIN LAB [address] [place] [address] * PHOSPHORUS (01/22/2020 10:15 AM CDT) Phosphorus 8.9 (H) 2.0 - 4.5 MG/DL MAIN LAB Specimen Blood Performing Organization Address [facility] Ph one Number MAIN LAB [address] [place] [address] * MAGNESIUM (01/22/2020 10:15 AM CDT) Magnesium 1.8 1.6 - 2.6 mg/dL MAIN LAB Specimen Blood Performing Organization Address [facility] Ph one Number MAIN LAB [address] [place] [address] * CULTURE-URINE W/SENSITIVITY (01/22/2020 10:15 AM CDT) Battery Name URINE CULTURE MAIN LAB Specimen URINE, STRAIGHT CATH [facility] MAIN LAB Description Special NONE MAIN LAB Requests Culture NO GROWTH MAIN LAB Report Status FINAL MAIN LAB 01/23/2020 Specimen Urine - Urine Straight Catheter Performing Organization Address [facility] Ph one Number [facility] [address] [place] [address] * URINALYSIS, MICROSCOPIC (01/22/2020 10:15 AM CDT) WBCs,UA 20-50 0 - 2 /HPF K[facility] MAIN LAB RBCs,UA 2-10 0 - 3 /HPF K[facility] MAIN LAB MucousUA 4+ KU MAIN LAB WBC Clumps PRESENT [facility] MAIN LAB Squamous 0-2 0 - 5 [facility] MAIN LAB Epithelial Cells Specimen Urine - Urine Performing Organization Address [facility] Ph one Number KU MAIN LAB [address] [place] [phone] * URINALYSIS DIPSTICK (01/22/2020 10:15 AM CDT) Color,UA YELLOW [facility] MAIN LAB Turbidity,UA CLEAR CLEAR-CLEAR [facility] MAIN LAB Specific 1.024 1.003 - 1.035 K[facility] MAIN LAB Sayre-Urine pH,UA 7.0 5.0 - 8.0 K[facility] MAIN LAB Protein,UA 2+ (A) NEG-NEG [facility] MAIN LAB Glucose,UA NEG NEG-NEG [facility] MAIN LAB Ketones,UA TRACE (A) NEG-NEG [facility] MAIN LAB Bilirubin,UA NEG NEG-NEG [facility] MAIN LAB Blood,UA 1+ (A) NEG-NEG [facility] MAIN LAB Urobilinogen,UA NORMAL NORM-NORMAL [facility] MAIN LAB Nitrite,UA NEG NEG-NEG [facility] MAIN LAB Leukocytes,UA TRACE (A) NEG-NEG [facility] MAIN LAB Urine Ascorbic NEG NEG-NEG [facility] MAIN LAB Acid, UA Specimen Urine - Urine Performing Organization Address [facility] Ph one Number MAIN LAB [address] [place] [address] * LIPASE (01/22/2020 10:15 AM CDT) Lipase 93 (H) 11 - 82 U/L [facility] MAIN LAB Specimen Blood Performing Organization Address City/[facility] Ph one Number MAIN LAB [address] [place] [address] * COMPREHENSIVE METABOLIC PANEL (01/22/2020 10:15 AM CDT) Sodium 134 (L) 137 - 147 MMOL/L [facility] MAIN LAB Potassium 6.9 (HH) 3.5 - 5.1 MMOL/L [facility] MAIN LAB Comment: CRITICAL VALUE CALLED TO AND READ BACK BY/TIME/TECH CHARLIE BEACH at 01/22/2020 11:20:57 by 1121 Chloride 110 98 - 110 MMOL/L [facility] MAIN LAB Glucose 275 (H) 70 - 100 MG/DL [facility] MAIN LAB Blood Urea 41 (H) 7 - 25 MG/DL [facility] MAIN LAB Nitrogen Creatinine 4.65 (H) 0.4 - 1.00 MG/DL [facility] MAIN LAB Calcium 9.5 8.5 - 10.6 MG/DL [facility] MAIN LAB Total Protein 8.1 (H) 6.0 - 8.0 G/DL [facility] MAIN LAB Total Bilirubin 0.2 (L) 0.3 - 1.2 MG/DL K[facility] MAIN LAB Albumin 3.6 3.5 - 5.0 G/DL [facility] MAIN LAB Alk Phosphatase 147 (H) 25 - 110 U/L [facility] MAIN LAB AST (SGOT) 23 7 - 40 U/L [facility] MAIN LAB CO2 4 (LL) 21 - 30 MMOL/L [facility] MAIN LAB Comment: CRITICAL VALUE CALLED TO AND READ BACK BY/TIME/TECH CHARLIE BEACH at 01/22/2020 11:20:57 by 1121 ALT (SGPT) 30 7 - 56 U/L [facility] MAIN LAB Anion Gap 20 (H) 3 - 12 [facility] MAIN LAB eGFR Non 10 (L) >60 mL/min [facility] MAIN LAB Comment: [place] The eGFR is not validated f or use in drug dosing adjustments. Continue to use estimated creatinine clearance per dosing reference text. Please contact the Clinical Pharmacist for questions. eGFR 12 (L) >60 mL/min K[facility] MAIN LAB [place] Comment: The eGFR is not validated for use in drug dosing adjustments. Continue to use estimated creatinine clearance per dosing reference text. Please contact the Clinical Pharmacist for questions. Specimen Blood Performing Organization Address City/State/Zipcode Ph one Number MAIN LAB [address] [place] [address] * CBC AND DIFF (01/22/2020 10:15 AM CDT) White Blood 17.2 (H) 4.5 - 11.0 K/UL K[facility] MAIN LAB Cells RBC 3.18 (L) 4.0 - 5.0 M/UL [facility] MAIN LAB Hemoglobin 9.0 (L) 12.0 - 15.0 GM/DL K[facility] MAIN LAB Hematocrit 28.4 (L) 36 - 45 % K[facility] MAIN LAB MCV 89.2 80 - 100 FL [facility] MAIN LAB MCH 28.2 26 - 34 PG [facility] MAIN LAB MCHC 31.6 (L) 32.0 - 36.0 G/DL [facility] MAIN LAB RDW 19.8 (H) 11 - 15 % [facility] MAIN LAB Platelet Count 579 (H) 150 - 400 K/UL [facility] MAIN LAB MPV 8.0 7 - 11 FL [facility] MAIN LAB Neutrophils 80 (H) 41 - 77 % [facility] MAIN LAB Lymphocytes 15 (L) 24 - 44 % [facility] MAIN LAB Monocytes 4 4 - 12 % [facility] MAIN LAB Eosinophils 0 0 - 5 % [facility] MAIN LAB Basophils 1 0 - 2 % [facility] MAIN LAB Absolute 13.79 (H) 1.8 - 7.0 K/UL [facility] MAIN LAB Neutrophil Count Absolute Lymph 2.54 1.0 - 4.8 K/UL [facility] MAIN LAB Count Absolute 0.75 0 - 0.80 K/UL [facility] MAIN LAB Monocyte Count Absolute 0.06 0 - 0.45 K/UL [facility] MAIN LAB Eosinophil Count Absolute 0.12 0 - 0.20 K/UL [facility] MAIN LAB Basophil Count Specimen Blood Performing Organization Address City/[facility]/Zipcode Ph one Number MAIN LAB [address] [place] [address] * CULTURE-BLOOD W/SENSITIVITY (01/22/2020 10:15 AM CDT) Battery Name BLOOD CULTURE MAIN LAB Specimen BLOOD MAIN LAB Description PORT Special NONE MAIN LAB Requests Culture NO GROWTH 5 DAYS MAIN LAB Report Status FINAL [facility] MAIN LAB 01/28/2020 Specimen Blood Performing Organization Address City/[facility]/Zipcode Ph one Number MAIN LAB [address] [place] [address] * ECG-SCAN (01/22/2020 12:00 AM CDT) Narrative Performed At This result has an attachment that is n ot available. Ordered by an unspecified provider. * ECG-SCAN (01/22/2020 12:00 AM CDT) Narrative Performed At This result has an attachment that is n ot available. Ordered by an unspecified provider. * ECG-SCAN (01/22/2020 12:00 AM CDT) Narrative Performed At This result has an attachment that is n ot available. Ordered by an unspecified provider. documented in this encounter Visit Diagnoses Diagnosis Pressure ulcer of sacral region, stage 3 (HCC) Diagnosis Sepsis with acute renal failure without septic shock, due to unspecified organism, unspecified acute renal failure type (HCC) Urinary tract infection without hematur ia, site unspecified Ketosis (HCC) Acidosis Acidosis Pressure ulcer of sacral region, stage 3 (HCC) Recurrent UTI Urinary tract infection, site not speci fied Severe sepsis (HCC) Unspecified septicemia Diabetes mellitus (HCC) Type II or unspecified type diabetes me llitus without mention of complication, not stated as uncontrolled History of urinary diversion procedure ([place] Pouch) Paraplegia (HCC) Paraplegia Sepsis (HCC) Unspecified septicemia Acute renal failure with tubular necros is (HCC) Acute kidney failure with lesion of tub ular necrosis Hyperkalemia Hyperpotassemia Hypomagnesemia Disorders of magnesium metabolism Lactic acidosis Acidosis Metabolic acidosis, NAG, bicarbonate lo sses Acidosis documented in this encounter Administered Medications Action Date Dose Rate Site Medication Order MAR Action 01/22/2020 10:18 AM CDT 650 mg acetaminophen (TYLENOL) tablet 650 mg Given 650 mg, Oral, ONCE, 1 dose, Sat01/22/20 at 1015, TOTAL ACETAMINOPHEN DOSE NOT T O EXCEED 4GM DAILY, acetaminophen (TYLENOL) tablet 650 mg 650 mg, Oral, EVERY 4 HOURS PRN, Starting Sat01/24/20 at 1852, Until Sat01/27/20 at 1425, Pain non-opioid: may be used alone or in combination with opioi d analgesia, TOTAL ACETAMINOPHEN DOSE NOT TO EXCEED 4GM DAILY, 01/22/2020 11:57 AM CDT 16 puffs albuterol sulfate (PROAIR HFA) inhaler Given 16 puff 16 puff, Inhalation, RT ONCE, 1 dose, Starting Sat01/22/20 at 1250, Until Sat01/22/20 at 1157, RT PROTOCOL, Hyperkalemia, 01/24/2020 10:19 PM CDT 2 mg alteplase (CATHFLO ACTIVASE) injection 2 Given mg 2 mg, Intra-catheter, ONCE, 1 dose, [place] 01/24/20 at 2115 01/27/2020 8:42 AM CDT 500 mg ascorbic acid (VITAMIN C) tablet 500 mg Given 500 mg, Oral, DAILY, First dose on Sat01/26/20 at 0900, Until Discontinued 500 mg Given 01/26/2020 1:02 PM CDT 01/27/2020 8:42 AM CDT 300 mg cefdinir (OMNICEF) capsule 300 mg Given 300 mg, Oral, EVERY 12 HOURS, First dos e on Sat01/26/20 at 2100, Until Discontinued 300 mg Given 01/26/2020 8:37 PM CDT 01/22/2020 10:45 AM CDT 2 g 200 mL/hr cefepime (MAXIPIME) 2 g in sodium Given - New chloride 0.9% (NS) 100 mL IVPB (MB+) Bag 2 g, Intravenous, 100 mL, Administer over 30 Minutes, ONCE, 1 dose, Sat01/22/20 at 1015 01/23/2020 10:07 AM CDT 2 g 200 mL/hr cefepime (MAXIPIME) 2 g in sodium Given - New chloride 0.9% (NS) 100 mL IVPB (MB+) Bag 2 g, Intravenous, 100 mL, Administer over 30 Minutes, EVERY 24 HOURS, First dose on Sat01/23/20 at 1000, Until Discontinued 01/26/2020 12:55 PM CDT 2 g 200 mL/hr cefepime (MAXIPIME) 2 g in sodium Given - New chloride 0.9% (NS) 100 mL IVPB (MB+) Bag 2 g, Intravenous, 100 mL, Administer over 30 Minutes, EVERY 12 HOURS, First dose (after last modification) on Sat01/24/20 at 1000, Until Discontinued 2 g 200 mL/hr Given - New Bag 01/25/2020 9:51 PM CDT 2 g 200 mL/hr Given - New Bag 01/25/2020 9:10 AM CDT 01/23/2020 8:20 AM CDT 1,000 mL 150 mL/hr dextrose 5 % lactated ringers with KCl Given - New 20 mEq/L infusion Bag 1,000 mL, 1,000 mL, Intravenous, at 150 mL/hr, ONCE, 1 dose, Sat01/23/20 at 074 5 01/22/2020 12:09 PM CDT 125 mL/hr dextrose 5% (D5W) with sodium Given bicarbonate 150 mEq 1,150 mL IV infusio n 1,150 mL, Intravenous, at 125 mL/hr, ONCE, 1 dose, Sat01/22/20 at 1245 01/23/2020 2:11 AM CDT 25 mg diphenhydrAMINE (BENADRYL) capsule 25 mg Given 25 mg, Oral, ONCE, 1 dose, Sat01/23/20 at 0245 01/24/2020 10:19 PM CDT 20 mg famotidine (PEPCID) injection 20 mg Given 20 mg, Intravenous, DAILY, First dose (after last modification) on Sat 0 at 2100, Until Discontinued, DILUTE W/ 10ML NS OR D5W. GIVE IV PUSH OVER 2 MIN , 20 mg Given 01/23/2020 8:05 PM CDT 20 mg Given 01/22/2020 7:55 PM CDT 01/25/2020 9:51 PM CDT 20 mg famotidine (PEPCID) injection 20 mg Given 20 mg, Intravenous, AT BEDTIME DAILY, First dose on Sat01/25/20 at 2100, Unti l Discontinued, DILUTE W/ 10ML NS OR D5W. GIVE IV PUSH OVER 2 MIN, 01/26/2020 8:36 PM CDT 20 mg famotidine (PEPCID) tablet 20 mg Given 20 mg, Oral, AT BEDTIME DAILY, First dose on Sat01/26/20 at 2100, Until Discontinued 01/27/2020 5:43 AM CDT 5,000 Units Abdomina l Tissue heparin (porcine) PF syringe 5,000 Units Given 5,000 Units, Subcutaneous, EVERY 8 HOURS, First dose on Sat01/22/20 at 1415, Until Discontinued, NOTE: This is a HIGH ALERT Medication., 5,000 Units Abdominal Tissue Given 01/26/2020 11:05 PM CDT 5,000 Units Abdomen:RLQ Given 01/26/2020 1:09 PM CDT 01/27/2020 12:11 PM CDT 500 Units heparin lock flush PF syringe 500 Units Given 500 Units, Flush, ONCE, 1 dose, Sat01/27/20 at 1200, NOTE: This is a HIGH ALERT Medication., 01/22/2020 12:01 PM CDT INHALATIONAL SPACING DEVICE MISC SPCR Given (Cabinet Override) NOW, 1 dose, Sat01/22/20 at 1200, Created by cabinet override, Created by cabinet override, 01/26/2020 11:02 PM CDT 2 Units Abdomina l Tissue insulin aspart U-100 (NOVOLOG FLEXPEN) Given injection PEN 0-12 Units 0-12 Units, Subcutaneous, BEFORE MEALS AND 2200, First dose on Sat01/22/20 at 1700, Until Discontinued, -POC glucose 181-220mg/dL at 07, 11, administer 2 units insulin, at , 03* administer 0 units. -POC glucose 221-260mg/dL at , , administer 4 units insulin, at , * administer 2 units. -POC glucos e 261-300mg/dL at , , administer 6 units insulin, at , * administer 4 units. -POC glucose 301-350mg/dL at , , administer 8 units insulin, at , * administer 6 units. -POC glucos e 351-400mg/dL at , , administer 1 0 units insulin, at , * administer 8 units. -POC glucose >400mg/dL at , , administer 12 units insulin, at , * administer 10 units. *only if ordered 5x's daily For POCT glucose >350mg/dL give correction bolus and recheck POCT glucose in 2 hours. If POC T glucose at 2 hours >300mg/dL call physician for further orders. For patients who are not eating meals, continue to administer the appropriate correction factor. NOTE: This is a HIGH ALERT Medication., Dispense pens manually with initial order and then upon request. DO NOT uncheck "Do not dispense", 4 Units Abdomen:LLQ Given 01/26/2020 5:23 PM CDT 2 Units Abdomen:RLQ Given 01/25/2020 6:53 PM CDT 01/25/2020 9:58 PM CDT 10 Units Abdomina l Tissue insulin glargine (LANTUS SOLOSTAR) Given injection PEN 10 Units 10 Units, Subcutaneous, AT BEDTIME DAILY, First dose on Sat01/25/20 at 2200, Until Discontinued, Continue if NPO. DO NOT mix with other insulins -- Do not mix with other insulins -- NOTE: This is a HIGH ALERT Medication., Dispense pens manually with initial order and then upon request. DO NOT uncheck "Do not dispense", 01/26/2020 11:04 PM CDT 15 Units Abdomina l Tissue insulin glargine (LANTUS SOLOSTAR) Given injection PEN 15 Units 15 Units, Subcutaneous, AT BEDTIME DAILY, First dose (after last modification) on Sat01/26/20 at 2200, Until Discontinued, Continue if NPO. DO NOT mix with other insulins -- Do no t mix with other insulins -- NOTE: This i s a HIGH ALERT Medication., Dispense pens manually with initial order and then upon request. DO NOT uncheck "Do not dispense", 01/22/2020 9:37 PM CDT 26 Units Abdomen: RLQ insulin glargine (LANTUS SOLOSTAR) Given injection PEN 26 Units 26 Units, Subcutaneous, AT BEDTIME DAILY, First dose on Sat01/22/20 at 2100, Until Discontinued, -- Do not mix with other insulins -- NOTE: This is a HIGH ALERT Medication., 01/22/2020 12:08 PM CDT 7 Units insulin regular(#) (NOVOLIN R) syringe 7 Given Units 7 Units, Intravenous, ONCE, 1 dose, Sat01/22/20 at 1245, NOTE: This is a HIGH ALERT Medication., 01/22/2020 4:33 PM CDT 1,000 mL 999 mL/hr lactated ringers infusion Given - New 1,000 mL, 1,000 mL, Intravenous, at 999 Bag mL/hr, BOLUS, 1 dose, Sat01/22/20 at 1630 01/22/2020 4:08 PM CDT 500 mL lactated ringers infusion Given - New 1,000 mL, 500 mL, Intravenous, at 999 Bag mL/hr, BOLUS, 1 dose, Sat01/22/20 at 1715 01/23/2020 3:53 PM CDT 1,000 mL 100 mL/hr lactated ringers infusion Given - New 1,000 mL, 1,000 mL, Intravenous, at 100 Bag mL/hr, ONCE, 1 dose, 01/23/20 at 160 0 LACTATED RINGERS IV SOLP (Cabinet Override) NOW, 1 dose, Sat01/22/20 at 1615, Created by cabinet override, Created by cabinet override, 01/23/2020 12:35 AM CDT 1,000 mL 5 mL/hr LACTATED RINGERS IV SOLP (Cabinet Given - New Override) Bag NOW, 1 dose, 01/23/20 at 0045, Created by cabinet override, Created by cabinet override, 01/24/2020 8:42 AM CDT 600 mg linezolid (ZYVOX) 600 mg/D5W 300 mL Given - New IVPB Bag 600 mg, Intravenous, EVERY 12 HOURS, First dose on Sat01/22/20 at 2100, Unti l Discontinued, PROTECT FROM LIGHT -- Mixed in non-PVC (Intra-Via) bag., 600 mg Given - New Bag 01/23/2020 8:05 PM CDT 600 mg Given - New Bag 01/23/2020 8:21 AM CDT 01/22/2020 7:16 PM CDT 1 g 100 mL/hr magnesium sulfate 1 g/D5W 100 mL IVPB Given - New 1 g, Intravenous, 100 mL, Administer Bag over 1 Hours, EVERY 1 HOUR FOR 3 DOSES , 3 doses, First dose on Sat01/22/20 at 1700, Last dose on Sat01/22/20 at 1900, Each 1gm delivers 8.1 mEq Magnesium., 1 g 100 mL/hr Given - New Bag 01/22/2020 6:11 PM CDT 1 g 100 mL/hr Given - New Bag 01/22/2020 5:00 PM CDT 01/25/2020 12:52 PM CDT 1 g 100 mL/hr magnesium sulfate 1 g/D5W 100 mL IVPB Given - New 1 g, Intravenous, 100 mL, Administer Bag over 1 Hours, EVERY 1 HOUR FOR 2 DOSES , 2 doses, First dose on Sat01/25/20 at 1000, Last dose on Sat01/25/20 at 1100, Each 1gm delivers 8.1 mEq Magnesium., 1 g 100 mL/hr Given - New Bag 01/25/2020 10:11 AM CDT 01/26/2020 2:05 PM CDT 1 g 100 mL/hr magnesium sulfate 1 g/D5W 100 mL IVPB Given - New 1 g, Intravenous, 100 mL, Administer Bag over 1 Hours, EVERY 1 HOUR FOR 2 DOSES , 2 doses, First dose on Sat01/26/20 at 0900, Last dose on Sat01/26/20 at 1000, Each 1gm delivers 8.1 mEq Magnesium., 1 g 100 mL/hr Given - New Bag 01/26/2020 12:56 PM CDT 01/27/2020 8:42 AM CDT 10 mg medroxyPROGESTERone (proVERA) tablet 10 Given mg 10 mg, Oral, TWICE DAILY, First dose on Sat01/24/20 at 1430, Until Discontinued 10 mg Given 01/26/2020 8:37 PM CDT 10 mg Given 01/26/2020 1:03 PM CDT 01/27/2020 8:41 AM CDT 500,000 Units nystatin (MYCOSTATIN) oral suspension Given 500,000 Units 500,000 Units, Oral, FOUR TIMES DAILY, First dose on Sat01/26/20 at 1900, Unti l Discontinued 500,000 Units Given 01/26/2020 8:34 PM CDT 500,000 Units Given 01/26/2020 6:00 PM CDT 01/23/2020 11:19 AM CDT 4 mg ondansetron (ZOFRAN) injection 4 mg Given 4 mg, Intravenous, ONCE, 1 dose, 01/23/20 at 1200 01/24/2020 6:53 AM CDT 8 mg ondansetron (ZOFRAN) injection 4-8 mg Given 4-8 mg, Intravenous, ONCE, 1 dose, 01/24/20 at 0730 01/26/2020 6:33 AM CDT 10 mg prochlorperazine (COMPAZINE) injection Given 10 mg 10 mg, Intravenous, EVERY 6 HOURS PRN, Starting 01/25/20 at 0933, Until Sat01/27/20 at 1425, Nausea/Vomiting Injectable, PROTECT FROM LIGHT -- May b e given undiluted, or each 5mg may be diluted with 9 mL of NS to facilitate titration., 10 mg Given 01/25/2020 10:11 AM CDT prochlorperazine maleate (COMPAZINE) tablet 10 mg 10 mg, Oral, EVERY 6 HOURS PRN, Starting 01/25/20 at 0933, Until Sat01/27/20 at 1425, Nausea/Vomiting PO 01/26/2020 8:15 AM CDT 1 millicurie RP DX Tc-99m sulfur colloid injection 1 Given millicurie 1 millicurie, Intravenous, ONCE, 1 dose , Sat01/26/20 at 0815 01/23/2020 12:36 AM CDT 250 mEq 30 mL/hr sodium bicarbonate 1 mEq/mL IV infusion Given - New (max conc) Bag 250 mL, Intravenous, at 30 mL/hr, CONTINUOUS, Starting Sat01/22/20 at 1600, Until 01/23/20 at 0650 250 mEq 30 mL/hr Given - New Bag 01/22/2020 4:35 PM CDT 01/22/2020 12:09 PM CDT 50 mEq sodium bicarbonate injection 50 mEq Given 50 mEq, Intravenous, ONCE, 1 dose, Sat01/22/20 at 1230 01/27/2020 8:42 AM CDT 1,300 mg sodium bicarbonate tablet 1,300 mg Given 1,300 mg, Oral, TWICE DAILY, First dose on Sat01/26/20 at 2100, Until Discontinued, Each 325mg tab delivers 3.8 mEq Na (650mg tab = 7.6 mEq Na), 1,300 mg Given 01/26/2020 8:37 PM CDT 01/22/2020 12:33 PM CDT 109 mL 999 mL/hr sodium chloride 0.9 % infusion Given - New 3,000 mL, 2,109 mL (30 mL/kg Bag 70.3 kg), Intravenous, at 999 mL/hr, BOLUS, 1 dose, Sat01/22/20 at 1015 1,000 mL 999 mL/hr Given - New Bag 01/22/2020 11:43 AM CDT 1,000 mL 999 mL/hr Given - New Bag 01/22/2020 10:18 AM CDT 01/27/2020 11:15 AM CDT sodium hypochlorite (DAKIN'S 1/2 Given STRENGTH) 0.25 % topical solution Irrigation, TWICE DAILY, First dose on Sat01/24/20 at 2100, Until Discontinued Given 01/27/2020 4:07 AM CDT Given 01/26/2020 2:18 PM CDT 01/22/2020 11:42 AM CDT 1,500 mg 187 mL/hr vancomycin (VANCOCIN) 1,500 mg in sodium Given - New chloride 0.9% (NS) IVPB Bag 1,500 mg (rounded from 1,406 mg = 20 mg/kg 70.3 kg), Intravenous, 280 mL, Administer over 90 Minutes, ONCE, 1 dose, Sat01/22/20 at 1100, Note Pharmacokinetic Monitoring: Please record infusion start time (Action= Given) and stop time (Action= Completed ) of dose when blood levels are drawn., 01/27/2020 8:42 AM CDT 1 tablet vitamins, multi stress formula (STRESS Given 600) tablet 1 tablet 1 tablet, Oral, DAILY, First dose on 01/26/20 at 0900, Until Discontinued 1 tablet Given 01/26/2020 1:02 PM CDT 01/27/2020 8:42 AM CDT 220 mg zinc sulfate capsule 220 mg Given 220 mg, Oral, DAILY, First dose on Sat01/26/20 at 0900, Until Discontinued, Each cap delivers 50mg elemental zinc., 220 mg Given 01/26/2020 1:02 PM CDT documented in this encounter Additional Health Concerns Resolved Time Infection Noted Time 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
--- OUTSIDE RECORDS SUMMARY | 2020-02-11 00:53 | XMS REPORT | Encounter Summary ---
Author Author [facility] Organization [facility] Address Unknown Phone Unavailable Care Team Providers Care Muck Hauler Name Role Phone Pb Ibrahim MD Unavailable [...] PCP Reason for Visit * Reason Comments Outpatient Antibiotic Therapy ([facility]) Encounter Details Care Team Description Date Type Department Lidia Bernard MD [address] [place] [address] Outpatient Antibiotic Therapy ([facility]) 01/04/[address] [id number] Social History Date Tobacco Use Types Packs/Day [...] history available. Date Recorded COVID-19 Exposure Response 12/25/2019 8:26 PM CDT In the last month, have you been in contact with No / Unsure someone who was confirmed or suspected to have Coronavirus / COVID-19? documented as of this encounter Functional Status Date of Assessment Functional Status Response 12/31/2019 Does the patient have a hearing impairment: [...] encounter Miscellaneous Notes * Telephone Encounter - Thuy Mack RN - 01/04/2020 12:59 PM CDT Patient discharged on: 01/04/20. Antibiotic per Dr. Bernard: Keflex 500mg QID PO Doxycycline 100mg BID PO Fluconazole 200mg QD PO For 14 days therapy total from 12/30-01/15 All dispensed at pharmacy Follow up with ID: with Joana in the next few weeks. Coordinate with wound care f/u. F/u on carole species identification. documented in this encounter Plan of Treatment Care Team Description Date Type Specialty Cody Tirado MD [address] [place] [address] Pressure ulcer of sacral region, stage 3 ([facility]) 02/15/2020 Hospital Encounter Kourtney Harvey APRN [id number] [place] [address] [phone] 02/15/2020 Anesthesia Event Cody Tirado MD [address] [place] [address] [phone] EXCISION SACRAL PRESSURE ULCER - PREPARA TION [...]
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
--- OUTSIDE RECORDS SUMMARY | 2020-02-11 00:53 | XMS REPORT | Encounter Summary ---
Author Author [facility] Organization [facility] Address Unknown Phone Unavailable Care Team Providers Care Director Multimedia Name Role Phone Pb Ibrahim MD Unavailable [...] Details Care Team Description Date Type Department 01/12/2020 Travel Social History Date Tobacco Use Types [...] Date Type Specialty Cody Tirado MD [address] [place] [address] [phone] Pressure ulcer of sacral region, stage 3 (HCC) 02/15/2020 Hospital Encounter Kourtney Harvey APRN [address] [place] [address] [phone] 02/15/2020 Anesthesia Event Cody Tirado MD [address] [place] [address] EXCISION SACRAL PRESSURE ULCER - PREPARA TION [...]
--- OUTSIDE RECORDS SUMMARY | 2020-02-11 00:53 | XMS REPORT | Encounter Summary ---
Author Author [facility] Organization [facility] Address Unknown Phone Unavailable Care Team Providers Care Software Tools Developer Name Role Phone Pb Ibrahim MD Unavailable [...] Description Date Type Department Cody Tirado MD [address] [place] [address] 01/12/2020 [facility] Social History Date Tobacco Use Types Packs/Day [...] hours as needed for Pain (body aches). 01/04/2020 atorvastatin (LIPITOR) 40 Take one 90 tablet 0 mg tablet tablet by mouth daily. Hold this medication until finishing course of Fluconazole ferrous sulfate 325 mg Take 325 mg 0 (65 mg iron) tablet by mouth daily. metFORMIN (GLUCOPHAGE) Take 500 mg 0 500 mg tablet by mouth twice daily with meals. 10/08/2014 ondansetron (ZOFRAN) 4 mg Take 1 Tab by 30 Tab 2 tablet mouth every 8 hours as needed for Nausea. vitamins, multiple tablet Take 1 Tab by 0 mouth daily. 01/05/2020 zinc sulfate 220 mg (50 Take two 10 capsule 0 mg elemental zinc) capsules by capsule mouth daily. 01/04/2020 01/13/2020 cephalexin (KEFLEX) 500 Take one 36 capsule 0 mg capsule capsule by mouth four times daily for 9 days. 01/04/2020 01/13/2020 doxycycline (VIBRAMYCIN) Take one 18 capsule 0 100 mg capsule capsule by mouth twice daily for 9 days. 02/10/2020 famotidine (PEPCID) 20 mg Take 20 mg by 0 tablet mouth daily. 01/04/2020 01/13/2020 fluconazole (DIFLUCAN) Take one 9 tablet 0 200 mg tablet tablet by mouth daily for 9 days. 01/27/2020 insulin aspart U-100 Inject 15 0 (NOVOLOG) 100 unit/mL Units under injection the skin three times daily with meals. 01/04/2020 01/27/2020 insulin detemir U-100 Inject twenty 45 mL 0 (LEVEMIR FLEXTOUCH) 100 six Units unit/mL (3 mL) injection under the pen skin every morning. 01/04/2020 01/27/2020 insulin detemir U-100 Inject thirty 45 mL 0 (LEVEMIR FLEXTOUCH) 100 six Units unit/mL (3 mL) injection under the pen skin at bedtime daily. 01/04/2020 01/27/2020 lisinopriL (ZESTRIL) 5 mg Take one-half 90 tablet 0 tablet tablet by mouth daily. 01/04/2020 02/10/2020 medroxyPROGESTERone Take one 60 tablet 0 (PROVERA) 10 mg tablet tablet by mouth twice daily. 10/19/2014 02/10/2020 prochlorperazine Take 1 Tab by 30 Tab 1 (COMPAZINE) 10 mg tablet mouth every 6 hours as needed. 01/04/2020 01/23/2020 sodium bicarbonate 650 mg Take one 60 tablet 0 tablet tablet by mouth twice daily. documented as of this encounter Plan of Treatment Care Team Description Date Type Specialty Cody Tirado MD [address] [place], [place] [id number] Pressure ulcer of sacral region, stage 3 (HCC) 02/15/2020 Hospital Encounter Kourtney Harvey APRN [id number] [place], [place] [id number] 02/15/2020 Anesthesia Event Cody Tirado MD [address] [place], [place] [id number] EXCISION SACRAL PRESSURE ULCER - PREPARA TION [...] Name Priority Date/Time Associated Diag nosis HC HEMOGLOBIN A1C Routine 01/12/2020 Pressure ulc er of sacral 2:40 PM CDT region, stage 3 (HCC) Type 2 diabetes mellitus with hyperglycemia, unspecified whether shelter insulin use (HCC) documented in this encounter Results * HEMOGLOBIN A1C (01/12/2020 2:40 PM CDT) Hemoglobin A1C 7.7 (H) 4.0 - 6.0 % [facility] Comment: The ADA recommends that most patients with type 1 and type 2 diabetes maintain an A1c level <7%. Specimen Blood Performing Organization Address City/State/Zipcode Ph one Number [facility] [address] [place] [address] documented in this encounter Visit Diagnoses Diagnosis Pressure ulcer of sacral region, stage 3 (HCC) Diagnosis Pressure ulcer of sacral region, stage 3 (HCC) Type 2 diabetes mellitus with hyperglyc emia, unspecified whether shelter insulin use (HCC) documented in this encounter Additional Health Concerns Resolved Time Infection Noted Time 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
--- OUTSIDE RECORDS SUMMARY | 2020-02-11 00:53 | XMS REPORT | Encounter Summary ---
Author Author [facility] Organization [facility] Address Unknown Phone Unavailable Care Team Providers Care Process Engineering Technician Name Role Phone Pb Ibrahim MD Unavailable Milo Louis MD Unavailable Christopher Stuart RN Unavailable Unavailable Dorothea Clark MD Unavailable Margaret Bruce RN Unavailable Unavailable Christopher Galvan MD Unavailable Ron Carey MD Unavailable Shantal Alberts RN Unavailable Unavailable Georgiana Ceron RN Unavailable Unavailable Milo Roberto MD Unavailable Ofeila Wan RN Unavailable Unavailable Roni Avila MD Unavailable Unavailable Tj Barron PA-C Unavailable Uma Melton RN Unavailable Unavailable Costa Han MD Unavailable Hui Arndt RN Unavailable Unavailable Jessica White LPN Unavailable Unavailable Kathy Gifford RN Unavailable Unavailable Milo Jj MD PCP Encounter Details Care Team Description Date Type Department 01/22/2020 Travel Social History Date Tobacco Use Types [...] Status Date of Assessment Functional Status Response 01/22/2020 Does the patient have a hearing impairment: [...] Date Type Specialty Cody Tirado MD [address] [place] [address] [phone] Pressure ulcer of sacral region, stage 3 (HCC) 02/15/2020 Hospital Encounter Kourtney Harvey APRN [address] [place] [address] 02/15/2020 Anesthesia Event Cody Tirado MD [address] [place] [address] EXCISION SACRAL PRESSURE ULCER - PREPARA TION [...]
--- OUTSIDE RECORDS SUMMARY | 2020-02-11 00:54 | XMS REPORT | Encounter Summary ---
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 hours) at 01/02/2020 0948 Last data filed at 01/02/2020 0700 Gross per 24 hour Intake 1040 ml Output 2900 ml Net -1860 ml UOP: Actual Weight: 71.2 kg (156 lb 15.5 oz) Dosing BW: 71.2 kg Drug Levels: Vancomycin 2HR POST Dose Date/Time Value Ref Range Status 01/02/2020 0400 32.1 ug/mL Final Vancomycin Trough Date/Time Value Ref Range Status 01/02/2020 0110 12.8 10.0 - 20.0 MCG/ML Final Calculations: Calculated True Peak (mcg/mL): 34.5 mcg/mL Calculated Trough (mcg/mL): 13.1 mcg/mL Rate of elimination (h-1): 0.04 Half Life (hr): 15.96 hours Volume of distribution (L/kg): 0.46 L/kg AUC (mcg*h/mL): 524.9 mcg*h/mL Assessment: Target levels for this patient: 1. AUC (mcg*h/mL): 400-600 2. Evaluation of AUC and/or level(s): The levels were drawn appropriately and using the [employer] vancomycin dosing calculator the calculated trough is 13.13 mcg/ml and AUC 524.9 mcg*h/mL, which are both in target range. Will continue current elvis men Plan: 1. Will continue current dosing regimen of vancomycin 750 mg IV every 24 hours 2. Next scheduled level(s): next 5-7 days 3. Pharmacy will continue to monitor and adjust therapy as needed. Deepthi Chang PharmD 01/02/2020 * Care Plan - Dillon Mclaughlin RN - 01/01/2020 5:48 PM CDT Problem: Discharge Planning Goal: Participation in plan of care Outcome: Goal Ongoing Goal: Knowledge regarding plan of care Outcome: Goal Ongoing Goal: Prepared for discharge Outcome: Goal Ongoing Problem: Infection, Risk of, Central Venous Catheter-Associated Bloodstream Infe ction Goal: Absence of CVC Associated Bloodstream infection Outcome: Goal Ongoing Problem: Infection, Risk of Goal: Absence of infection Outcome: Goal Ongoing Goal: Knowledge of Infection Control Procedures Outcome: Goal Ongoing Problem: Skin Integrity Goal: Skin integrity intact Outcome: Goal Ongoing Goal: Healing of skin (Wound & Incision) Outcome: Goal Ongoing Goal: Healing of skin (Pressure Injury) Outcome: Goal Ongoing Problem: Nutrition Deficit Goal: Adequate nutritional intake Outcome: Goal Ongoing * Case Mgmt DC Plan - Alka Mendez RN - 01/01/2020 3:23 PM CDT Case Management Progress Note NAME:Tam Lozano : AGE: 49 y.o. ADMISSION DATE: 12/26/2019 DAYS ADMITTED: LOS: 6 days Todays Date: 01/01/2020 Plan D/c plans ongoing, patient to remain inpatient through the weekend. Interventions ? Support ? Info or Referral ? Discharge Planning Discharge Planning: Home Health, Home [facility] Discussed patient during Med Q huddle today. Informed Med Q team that patient's home health of choice is not able to process orders over the weekend, so the patient will not be able to discharge this weeke nd without a final discharge IV antibiotic plan in place by Saturday. Med Q physician understood and stated the patient will remain inpatient through the weekend, likely with discharge Saturday. [facility] updated Briana, intake at [facility] in [place] that patient will remain i npatient through the weekend. [facility] also updated Home Infusion of patient's dis charge plans as well. ? Medication Needs Medication Needs: Co-Pay Check ? Financial ? Legal ? Other Other/None: No needs identified Disposition ? Expected Discharge Date Expected Discharge Date: 01/04/20 Expected Discharge Time: 1600 ? Transportation Does the patient need discharge transport arranged?: No Transportation Name, Phone and Availability #1: Maco Sebastian --[employer]ificant [employer]the r --[phone] (Patient states Maco will be able to bring her wheelchair fro m home. Pt has a wheelchair accessible van for transport) ? Next Level of Care (Acute Psych discharges only) ? Discharge Disposition Durable Medical Equipment No service has been selected for the patient. Destination No service has been selected for the patient. Home Care Service Provider Request Status Selected Services Address Phone Number Fax Numb er [facility] Selected Home Health Services [address] [facility] [address] [phone] Dialysis/Infusion Service Provider Request Status Selected Services Address Phone Number Fax Numb er *[facility] Selected Home Infusion and Injection [id number] [place] [address] [phone] BRITTANY [place] Pager: [phone] Office: [phone] * Care Plan - Maureen Pearl RN - 01/01/2020 12:52 AM CDT Problem: Discharge Planning Goal: Participation in plan of care Outcome: Goal Ongoing Flowsheets (Taken 12/28/2019637 by Aakash Gutierrez, RN) Participation in Plan of Care: Involve patient/caregiver in care planning decisi on making Goal: Knowledge regarding plan of care Outcome: Goal Ongoing Flowsheets (Taken 12/28/2019637 by Aakash Gutierrez, RN) Knowledge regarding plan of care: Provide admission education to parent/caregiver Provide fall prevention education Provide VTE signs and symptoms education Provide plan of care education Provide infection prevention education Provide medication management education Goal: Prepared for discharge Outcome: Goal Ongoing Flowsheets (Taken 12/28/2019637 by Aakash Gutierrez, RN) Prepared for discharge: Complete ADL ability assessment Provide safe use medical equipment education Provide diet and oral health education Collaborate with multidisciplinary team for hospital discharge coordination Problem: Infection, Risk of, Central Venous Catheter-Associated Bloodstream Infe ction Goal: Absence of CVC Associated Bloodstream infection Outcome: Goal Ongoing Flowsheets (Taken 12/28/2019637 by Aakash Gutierrez, RN) Absence of CVC associated bloodstream infection: Assess for central line catheter infection (Monitor SIRS criteria) Manage central venous catheter Follow proper techniques for discontinuation of central line Preparation for central venous catheter insertion Follow central line bundle components Provide education on central line home care Problem: Infection, Risk of Goal: Absence of infection Outcome: Goal Ongoing Flowsheets (Taken 12/28/2019637 by Aakash Gutierrez, RN) Absence of infection: Administer pharmacological therapies as ordered Monitor for signs and symptoms of infection Assess for infection (Monitor SIRS Criteria) Implement prevention measures as indicated Goal: Knowledge of Infection Control Procedures Outcome: Goal Ongoing Flowsheets (Taken 12/28/2019637 by Aakash Gutierrez, RN) Knowledge of Infection Control procedures: Provide Isolation Precautions Educati on Problem: Skin Integrity Goal: Skin integrity intact Outcome: Goal Ongoing Flowsheets (Taken 12/28/2019 06 by Aakash Gutierrez, RN) Skin integrity intact: Assess nutrition Provide skin care interventions Promote nutrition Provide incontinence management interventions Assure position change Monitor skin integrity Provide skin self-assessment education Reduce skin shear, friction and tissue load Consider consult for skin integrity Goal: Healing of skin (Wound & Incision) Outcome: Goal Ongoing Flowsheets (Taken 12/28/2019 06 by Aakash Gutierrez, RN) Healing of wound (wounds and Incisions): Provide wound/incision care as ordered Assess for signs and symptoms of wound infection Assess wound site healing Implement wound/incision care as ordered Goal: Healing of skin (Pressure Injury) Outcome: Goal Ongoing Flowsheets (Taken 12/28/2019 06 by Aakash Gutierrez, CHARLIE) Healing of skin (Pressure Injury): Implement pressure relieving device/specialty mattress Promote ambulation Use the National Pressure Injury Advisory Panel Staging System for grading pres sure injuries Implement pressure injury care as ordered Assess for signs and symptoms of pressure injury infection Provide pressure injury care education as ordered Assess pressure injury * Case Mgmt DC Plan - Alka Mendez RN - 12/31/2019 1:52 PM CDT Case Management Progress Note NAME:Tam Lozano : AGE: 49 y.o. ADMISSION DATE: 12/26/2019 DAYS ADMITTED: LOS: 5 days Todays Date: 12/31/2019 Plan D/c plans ongoing Interventions ? Support ? Info or Referral ? Discharge Planning Discharge Planning: Home Health, Home [facility] called the patient at the bedside yesterday afternoon to discuss discharge p gee and discussed patient's possible need for home health and IV antibiotics at discharge. Offered choice list with quality data from [employer] Compare and offered to answer questions. Patient selected the following: [facility] and [facility]---as she has used these agencies in the past. Today, [place] sent initial referrals to agencies of patient choice. Requested benef its check from patient chosen provider [facility] for IV antibiotics for d ischarge if needed. Addendum 1500: Received a call from intake Briana at [facility] who indicated they could a ccept the patient for nursing services, however, if they do not receive final IV antibiotic/home health orders by Saturday for the agency to process, they will not be able to start the patient until next week as they do not have staff available over the weekend to process new orders. Informed Briana that it is unknown whether final recommendations for IV antibioitics will be available on Saturday. [facility] will inform [facility] physician of this. ? Medication Needs Medication Needs: Co-Pay Check Per Home infusion, patient's current IV medications (vancomycin and cefepime) are covered at 100%. Patient has a $3 copay for supplies per week. ? Financial ? Legal ? Other Other/None: No needs identified Disposition ? Expected Discharge Date Expected Discharge Date: 01/01/20 Expected Discharge Time: 1600 ? Transportation Does the patient need discharge transport arranged?: No Transportation Name, Phone and Availability #1: Maco Sebastian --[employer]ificant [employer] r --[phone] (Patient states Maco will be able to bring her wheelchair fro m home. Pt has a wheelchair accessible van for transport) ? Next Level of Care (Acute Psych discharges only) ? Discharge Disposition Durable Medical Equipment No service has been selected for the patient. Destination No service has been selected for the patient. Home Care Service Provider Request Status Selected Services Address Phone Number Fax Numb er [facility] Selected Home Health Services [address] [facility] [address] [phone] Dialysis/Infusion Service Provider Request Status Selected Services Address Phone Number Fax Numb er *[facility] Selected Home Infusion and Injection [id number] [address] [phone] BRITTANY [place] Pager: [phone] Office: [phone] * Procedures (Immed Post or Bedside) - Iona Livingston PA-C - 12/31/2019 9:45 AM CDT Brief Operative Note Name: Tam Lozano is a 49 y.o. female : 1970 MRN# : [id number] DATE OF OPERATION: 12/31/2019 Date: 12/31/2019 Preoperative Dx: Abnormal uterine bleeding [N93.9] Thickened endometrium [R93.89] Post-op Diagnosis * Abnormal uterine bleeding [N93.9] * Thickened endometrium [R93.89] Procedure(s) (LRB): EXCISION SACRAL PRESSURE ULCER WITH OSTECTOMY- PREPARATION FOR MUSCLE/ MYOCUTANE OUS FLAP/ SKIN GRAFT CLOSURE (Bilateral) HYSTEROSCOPY WITH ENDOMETRIAL BIOPSY/ POLYPECTOMY WITH/ WITHOUT DILATION AND CUR ETTAGE Anesthesia Type: General Surgeon(s) and Role: Panel 1: * Cody Jaquez MD - Primary * Isidoro Ferrara MD - Resident - Assisting Panel 2: * Briana Maciel MD - Primary Findings: Hysteroscopic survey revealed diffusely proliferative uterus. No darrion s masses or lesions present in the cavity. Ostia visualized bilaterally. Estimated Blood Loss: No blood loss documented. Hysteroscopy fluid deficit: 50cc Specimen(s) Removed/Disposition: ID Type Source Tests Collected by Time Destination A : sacral pressure ulcer for all cultures Tissue Incision CULTURE-ANAEROBIC, CU LTURE-WOUND/TISSUE/FLUID(AEROBIC ONLY)W/SENSITIVITY, CULTURE-TB (AFB), GRAM STAI N, CULTURE-FUNGAL,OTHER Cody Jaquez MD 12/31/2019 0833 Complications: None Implants: None Drains: None Disposition: PACU - stable Iona Livingston PA-C Pager [phone] Associated attestation - Briana Maciel MD - 12/31/2019 8:46 PM CDT ATTESTATION I performed this procedure without the involvement of a resident., The mehta porti on of this procedure was performed in my presence., and I was present for the en tire procedure. Staff name: Briana Maciel MD Date: 12/31/2019 * Operative Report (Direct Entry) - Briana Maciel MD - 12/31/2019 8:20 AM CDT OPERATIVE REPORT Name: Tam Lozano is a 49 y.o. female : 1970 MRN# : [id number] DATE OF OPERATION: 12/31/2019 Surgeon(s) and Role: Panel 2: * Briana Maciel MD - Primary Preoperative Diagnosis: Abnormal uterine bleeding [N93.9] Thickened endometrium [R93.89] Post-op Diagnosis * Abnormal uterine bleeding [N93.9] * Thickened endometrium [R93.89] Procedure(s) (LRB): HYSTEROSCOPY WITH DILATION AND CURETTAGE Anesthesia Type: General Description and Findings of Operative Procedure: Findings: Hysteroscopic survey revealed diffusely proliferative endometrial evan ing. No gross masses or lesions present in the cavity. Ostia visualized bilatera lly. Pt was consented. Risks, benefits and alternatives were discussed. She was alrea dy in the OR under anesthesia with Dr. Jaquez's team. After his portion of the procedure was complete she was repositioned to dorsal lithotomy. She was prepped and draped in a sterile fashion. The cervix was grasped with tenaculum on the a nterior lip. The cervix was progressively dilated to accommodate a 7 mm scope. T he scope was advanced to the fundus and the bilateral ostia were visualized. The re was no polyp or fibroid noted. The endometrium was proliferative. The scope w as removed. A sharp curette was used obtain endometrial currettings. After all w alls were gritty the curreting was complete. The tenaculum was removed. The cerv ix was hemostatic. The fluid deficit was 50 cc NS. Instruments and sponge count were correct. There were no complications of the procedure. The patient was extubated and taken to the PACU in stable condition. Estimated Blood Loss: No blood loss documented. Hysteroscopy fluid deficit: 50cc Estimated Blood Loss: No blood loss documented. Specimen(s) Removed/Disposition: ID Type Source Tests Collected by Time Destination 1 : endometrial curettings for routine Tissue Endometrial SURGICAL PATHOLOGY Briana Maciel MD 12/31/2019 0958 A : sacral pressure ulcer for all cultures Tissue Incision CULTURE-ANAEROBIC, CU LTURE-WOUND/TISSUE/FLUID(AEROBIC ONLY)W/SENSITIVITY, CULTURE-TB (AFB), GRAM STAI N, CULTURE-FUNGAL,OTHER Cody Jaquez MD 12/31/2019 9824 Attestation: I performed this procedure without the involvement of a resident., The mehta portion of this procedure was performed in my presence. and I was presen t for the entire procedure. Complications: None Implants: None Drains: None Disposition: PACU - stable Briana Maciel MD Pager [phone] * Operative Report (Direct Entry) - Cody Jaquez MD - 12/31/2019 8:20 AM CDT OPERATIVE REPORT Name: Tam Lozano is a 49 y.o. female : 1970 MRN# : [id number] DATE OF OPERATION: 12/31/2019 Surgeon(s) and Role: Panel 1: * Cody Jaquez MD - Primary * Isidoro Ferrara MD - Resident - Assisting Preoperative Diagnosis: Abnormal uterine bleeding [N93.9] Thickened endometrium [R93.89] Post-op Diagnosis * Abnormal uterine bleeding [N93.9] * Thickened endometrium [R93.89] Procedures: 1. Excision of sacral pressure in preparation for flap coverage 2. Excision of right ischial pressure ulcer and Primary closure Anesthesia Type: General Description and Findings of Operative Procedure: Patient was transported to the OR by the anesthesia team. After time out was completed, confirming patient iden tity, operation, and laterality, patient was anesthetized in accordance with [facility] policies. Patient was then transferred to the OR table in a prone po sition. She was then prepped and draped in a sterile fashion. Incision boundarie s were marked out over both pressure ulcers and injected with marcaine/epinephri ne solution. Sharp excisional debridement was performed with a scalpel, excising both pressure wounds in their entirety. Level of excision for sacral wound incl uded skin, subcutaneous tissue, deep fascia, and muscle. Covering layers of sacr al bone were found to be healthy and no affected. All devitalized and unhealthy tissues were meticulously removed. Wound was prepared for a future closure with a flap. We will plan this based on overall nutritional status of patient. Tissue from sacral pressure injury was sent for culture. Level of excision for right i schial pressure ulcer was through full thickness of skin, subcutaneous tissue, a nd fascia. All devitalized and unhealthy tissues were meticulously removed. Hemo stasis was obtained using electrocautery. Both wounds were further debrided/wash ed with the Pulsavac system. [place] thrombin and telfa were then applied to the l arger sacral pressure ulcer to ensure hemostasis. The sacral pressure ulcer was packed with 1/2-strength Dakins-soaked Kerlix; the ischial pressure ulcer was cl osed in a layered fashion with deep 0-PDS suture and superficial 0-prolene sutur e. Dressings of xeroform, ABD, and hypafix tape were applied. Appropriate hand o ff was then performed with the gynecology / oncology team for their portion of t he case to begin. Estimated Blood Loss: 25 ml Specimen(s) Removed/Disposition: ID Type Source Tests Collected by Time Destination A : sacral pressure ulcer for all cultures Tissue Incision CULTURE-ANAEROBIC, CU LTURE-WOUND/TISSUE/FLUID(AEROBIC ONLY)W/SENSITIVITY, CULTURE-TB (AFB), GRAM STAI N, CULTURE-FUNGAL,OTHER Cody Jaquez MD 12/31/2019 7907 Attestation: I performed this procedure with a resident. Complications: None Implants: None Drains: None Disposition: OR for second part of case. Isidoro Ferrara MD Pager [phone] ATTESTATION I performed this procedure with a resident. and I was present for the entire pro cedure. Staff name: Cody Jaquez MD Date: 01/10/2020 * Care Plan - Maureen Pearl RN - 12/31/2019 1:07 AM CDT Problem: Discharge Planning Goal: Participation in plan of care Outcome: Goal Ongoing Flowsheets (Taken 12/28/2019 0608 by Aakash Gutierrez, RN) Participation in Plan of Care: Involve patient/caregiver in care planning decisi on making Goal: Knowledge regarding plan of care Outcome: Goal Ongoing Flowsheets (Taken 12/28/2019 0619 by Aakash Gutierrez, RN) Knowledge regarding plan of care: Provide admission education to parent/caregiver Provide fall prevention education Provide VTE signs and symptoms education Provide plan of care education Provide infection prevention education Provide medication management education Goal: Prepared for discharge Outcome: Goal Ongoing Flowsheets (Taken 12/28/2019637 by Aakash Gutierrez, RN) Prepared for discharge: Complete ADL ability assessment Provide safe use medical equipment education Provide diet and oral health education Collaborate with multidisciplinary team for hospital discharge coordination Problem: Infection, Risk of, Central Venous Catheter-Associated Bloodstream Infe ction Goal: Absence of CVC Associated Bloodstream infection Outcome: Goal Ongoing Flowsheets (Taken 12/28/2019637 by Aakash Gutierrez, RN) Absence of CVC associated bloodstream infection: Assess for central line catheter infection (Monitor SIRS criteria) Manage central venous catheter Follow proper techniques for discontinuation of central line Preparation for central venous catheter insertion Follow central line bundle components Provide education on central line home care Problem: Infection, Risk of Goal: Absence of infection Outcome: Goal Ongoing Flowsheets (Taken 12/28/2019637 by Aakash Gutierrez, RN) Absence of infection: Administer pharmacological therapies as ordered Monitor for signs and symptoms of infection Assess for infection (Monitor SIRS Criteria) Implement prevention measures as indicated Goal: Knowledge of Infection Control Procedures Outcome: Goal Ongoing Flowsheets (Taken 12/28/2019637 by Aakash Gutierrez, RN) Knowledge of Infection Control procedures: Provide Isolation Precautions Educati on Problem: Skin Integrity Goal: Skin integrity intact Outcome: Goal Ongoing Flowsheets (Taken 12/28/2019637 by Aakash Gutierrez, RN) Skin integrity intact: Assess nutrition Provide skin care interventions Promote nutrition Provide incontinence management interventions Assure position change Monitor skin integrity Provide skin self-assessment education Reduce skin shear, friction and tissue load Consider consult for skin integrity Goal: Healing of skin (Wound & Incision) Outcome: Goal Ongoing Flowsheets (Taken 12/28/2019637 by Aakash Gutierrez, RN) Healing of wound (wounds and Incisions): Provide wound/incision care as ordered Assess for signs and symptoms of wound infection Assess wound site healing Implement wound/incision care as ordered Goal: Healing of skin (Pressure Injury) Outcome: Goal Ongoing Flowsheets (Taken 12/28/2019637 by Aakash Gutierrez, RN) Healing of skin (Pressure Injury): Implement pressure relieving device/specialty mattress Promote ambulation Use the National Pressure Injury Advisory Panel Staging System for grading pres sure injuries Implement pressure injury care as ordered Assess for signs and symptoms of pressure injury infection Provide pressure injury care education as ordered Assess pressure injury * Care Plan - Rylie Hernandez RN - 12/30/2019 4:54 PM CDT Problem: Discharge Planning Goal: Participation in plan of care Outcome: Goal Ongoing Goal: Knowledge regarding plan of care Outcome: Goal Ongoing Goal: Prepared for discharge Outcome: Goal Ongoing Problem: Infection, Risk of, Central Venous Catheter-Associated Bloodstream Infe ction Goal: Absence of CVC Associated Bloodstream infection Outcome: Goal Ongoing Problem: Infection, Risk of Goal: Absence of infection Outcome: Goal Ongoing Goal: Knowledge of Infection Control Procedures Outcome: Goal Ongoing Problem: Skin Integrity Goal: Skin integrity intact Outcome: Goal Ongoing Goal: Healing of skin (Wound & Incision) Outcome: Goal Ongoing Goal: Healing of skin (Pressure Injury) Outcome: Goal Ongoing * Care Plan - Ifeoma Cox RN - 12/29/2019 6:45 PM CDT Problem: Discharge Planning Goal: Participation in plan of care Outcome: Goal Ongoing Goal: Knowledge regarding plan of care Outcome: Goal Ongoing Goal: Prepared for discharge Outcome: Goal Ongoing Problem: Infection, Risk of, Central Venous Catheter-Associated Bloodstream Infe ction Goal: Absence of CVC Associated Bloodstream infection Outcome: Goal Ongoing Problem: Infection, Risk of Goal: Absence of infection Outcome: Goal Ongoing Goal: Knowledge of Infection Control Procedures Outcome: Goal Ongoing Problem: Skin Integrity Goal: Skin integrity intact Outcome: Goal Ongoing Goal: Healing of skin (Wound & Incision) Outcome: Goal Ongoing Goal: Healing of skin (Pressure Injury) Outcome: Goal Ongoing * Drug Level - Ray Gibson, PHARMD - 12/29/2019 8:09 AM CDT Pharmacy Vancomycin Note Subjective: Tam Lozano is a 49 y.o. female being treated for Wound infection. Objective: Current Vancomycin Orders Medication Dose Route Frequency [START ON 12/30/2019] vancomycin (VANCOCIN) 750 mg in sodium chloride 0.9% (NS ) IVPB 750 mg Intravenous Q24H* vancomycin, pharmacy to manage 1 each Service Per Pharmacy Start Date of vancomycin therapy: 12/26/2019 Additional Abx: cefepime White Blood Cells Date/Time Value Ref Range Status 12/29/2019 0250 12.7 (H) 4.5 - 11.0 K/UL Final 12/28/2019 0508 14.7 (H) 4.5 - 11.0 K/UL Final 12/28/2019 0100 16.1 (H) 4.5 - 11.0 K/UL Final 12/27/2019 1900 14.9 (H) 4.5 - 11.0 K/UL Final 12/27/2019 0716 15.2 (H) 4.5 - 11.0 K/UL Final Creatinine Date/Time Value Ref Range Status 12/29/2019 0250 0.82 0.4 - 1.00 MG/DL Final 12/28/2019 0508 0.92 0.4 - 1.00 MG/DL Final 12/27/2019 1550 0.94 0.4 - 1.00 MG/DL Final Blood Urea Nitrogen Date/Time Value Ref Range Status 12/29/2019 0250 9 7 - 25 MG/DL Final Estimated CrCl: 52 Intake/Output Summary (Last 24 hours) at 12/29/2019 0809 Last data filed at 12/29/2019 0635 Gross per 24 hour Intake 1525 ml Output 1800 ml Net -275 ml Actual Weight: 71.2 kg (156 lb 15.5 oz) Dosing BW: 71.2 kg Drug Levels: Vancomycin 2HR POST Dose Date/Time Value Ref Range Status 12/29/2019 0250 49.9 ug/mL Final Vancomycin Trough Date/Time Value Ref Range Status 12/29/2019 0030 17.4 10.0 - 20.0 MCG/ML Final Calculations: Calculated True Peak (mcg/mL): 51.8 mcg/mL Calculated Trough (mcg/mL): 16.9 mcg/mL Rate of elimination (h-1): 0.05 Half Life (hr): 14.25 hours Volume of distribution (L/kg): 0.38 L/kg AUC (mcg*h/mL): 752 mcg*h/mL Assessment: Target levels for this patient: 1. AUC (mcg*h/mL): 400-600 2. Trough 10-20 Evaluation of AUC and/or level(s): Post dose level drawn early, AUC is above goa l, Vd is on very low end but reasonable Plan: 1. Decrease dose to 750 mg q24h. Predicted AUC 564, trough 13 2. Next scheduled level(s): TBD 3. Pharmacy will continue to monitor and adjust therapy as needed. Ray Gibson PHARMD 12/29/2019 * Care Plan - Joanne Rogers, CHARLIE - 12/28/2019 6:25 PM CDT Problem: Discharge Planning Goal: Participation in plan of care Outcome: Goal Ongoing Goal: Knowledge regarding plan of care Outcome: Goal Ongoing Goal: Prepared for discharge Outcome: Goal Ongoing Problem: Infection, Risk of, Central Venous Catheter-Associated Bloodstream Infe ction Goal: Absence of CVC Associated Bloodstream infection Outcome: Goal Ongoing Problem: Infection, Risk of Goal: Absence of infection Outcome: Goal Ongoing Goal: Knowledge of Infection Control Procedures Outcome: Goal Ongoing Problem: Skin Integrity Goal: Skin integrity intact Outcome: Goal Ongoing Goal: Healing of skin (Wound & Incision) Outcome: Goal Ongoing Goal: Healing of skin (Pressure Injury) Outcome: Goal Ongoing * Case Mgmt DC Plan - Alka Mendez, CHARLIE - 12/28/2019 10:54 AM CDT Case Management Admission Assessment NAME:Tam Lozano : AGE: 49 y.o. ADMISSION DATE: 12/26/2019 DAYS ADMITTED: LOS: 2 days Todays Date: 12/28/2019 Source of Information: patient Plan Plan: Case Management Assessment, Assist PRN with SW/NCM Services, Discharge Mansi nning for Home Anticipated This CM spoke over the phone with pt for assessment on this date. Provided cont act information and explanation of SW/NCM roles. Provided opportunity for quest ions and discussion. Pt/family encouraged to contact Case Management team with q uestions and concerns during hospitalization and until patient is able to transi tion back to the patient's primary care physician. Anticipate patient will discharge home once medically stable. Case management te am to continue to follow up with the patient as further needs arise during hospi talization. Patient Address/Phone [address] [facility] [id number] (home) [phone] (work) Emergency Contact Extended Emergency Contact Information Primary Emergency Contact: Maco Sebastian Address: [address] [place] [address] [facility] [place] Relation: Significant Other Secondary Emergency Contact: Stephanie Shah [facility] Relation: [facility] Directive Not assessed Transportation Does the patient need discharge transport arranged?: No Transportation Name, Phone and Availability #1: Maco Sebastian --Significant Othe r --[phone] (Patient states Maco will be able to bring her wheelchair fro m home. Pt has a wheelchair accessible van for transport) Expected Discharge Date Expected Discharge Date: 12/29/19 Expected Discharge Time: 1200 Living Situation Prior to Admission ? Living Arrangements Type of Residence: Home, dependent on others Living Arrangements: Spouse/significant other(Maco--significant other) Bathroom Shower / Tub: Walk-in Shower How many levels in the residence?: 1 Can patient live on one level if needed?: Yes Does residence have entry and/or side stairs?: No Assistance needed prior to admit or anticipated on discharge: Yes Who provides assistance or could if needed?: Maco Sebastian--Significant Other-- [phone] Are they in good health?: Yes Can support system provide 24/7 care if needed?: Yes ? Level of Function Prior level of function: Needs assist with ADLs Which ADLs require assistance?: transportation, bathing, Who assists with ADLs?: Maco--significant other ? Cognitive Abilities Cognitive Abilities: Alert and Oriented Financial Resources ? Coverage Primary Insurance: Medicare Secondary Insurance: Medicaid Additional Coverage: RX(No concerns with medication costs at this time. Patient' s preferred pharmacy is [facility]) ? Source of Income Source Of Income: SSDI ? Financial Assistance Needed? No Psychosocial Needs ? Mental Health Mental Health History: No ? Substance Use History Substance Use History Screen: No ? Other N/A Current/Previous Services ? PCP Milo Jj, , ? Pharmacy [facility] - [place], [place] - [address] [facility] [address] [facility] [address] [facility] [address] [place] [address] [facility] [address] ? Durable Medical Equipment Durable Medical Equipment at home: Ostomy Supplies, Westley Lift, Wheelchair (brandi r) ? Home Health Receiving home health: In the past Agency name: [facility] Would patient use this agency again?: Yes ? Hemodialysis or Peritoneal Dialysis Undergoing hemodialysis or peritoneal dialysis: No ? Tube/Enteral Feeds Receive tube/enteral feeds: No ? Infusion Receive infusions: In the past Where: home Infusion company: [facility] Would patient use this agency again?: Yes ? Private Duty Private duty help used: No ? Home and Community Based Services ? [place]: N/A ? Hospice Hospice: No ? Outpatient Therapy PT: In the past Name of rehab location/group: [facility] OT: In the past Name of rehab location/group: [facility] MANAGER OF CARE: No ? Senior Care Facility/Fdc SNF: No NH: No ? Inpatient Rehab IPR: No ? Long-Term Acute Care Hospital LTACH: No ? Acute Hospital Stay Acute Hospital Stay: In the past Was patient's stay within the last 30 days?: No BRITTANY España Pager: [phone] Office: [phone] * Care Plan - Aakash Gutierrez RN - 12/28/2019 6:40 AM CDT Problem: Discharge Planning Goal: Participation in plan of care Outcome: Goal Ongoing Flowsheets (Taken 12/28/2019 0638) Participation in Plan of Care: Involve patient/caregiver in care planning decisi on making Goal: Knowledge regarding plan of care Outcome: Goal Ongoing Flowsheets (Taken 12/28/2019 0638) Knowledge regarding plan of care: Provide admission education to parent/caregiver Provide fall prevention education Provide VTE signs and symptoms education Provide plan of care education Provide infection prevention education Provide medication management education Goal: Prepared for discharge Outcome: Goal Ongoing Flowsheets (Taken 12/28/2019 06) Prepared for discharge: Complete ADL ability assessment Provide safe use medical equipment education Provide diet and oral health education Collaborate with multidisciplinary team for hospital discharge coordination Problem: Infection, Risk of, Central Venous Catheter-Associated Bloodstream Infe ction Goal: Absence of CVC Associated Bloodstream infection Outcome: Goal Ongoing Flowsheets (Taken 12/28/2019 0638) Absence of CVC associated bloodstream infection: Assess for central line catheter infection (Monitor SIRS criteria) Manage central venous catheter Follow proper techniques for discontinuation of central line Preparation for central venous catheter insertion Follow central line bundle components Provide education on central line home care Problem: Infection, Risk of Goal: Absence of infection Outcome: Goal Ongoing Flowsheets (Taken 12/28/2019 06) Absence of infection: Administer pharmacological therapies as ordered Monitor for signs and symptoms of infection Assess for infection (Monitor SIRS Criteria) Implement prevention measures as indicated Goal: Knowledge of Infection Control Procedures Outcome: Goal Ongoing Flowsheets (Taken 12/28/2019637) Knowledge of Infection Control procedures: Provide Isolation Precautions Educati on Problem: Skin Integrity Goal: Skin integrity intact Outcome: Goal Ongoing Flowsheets (Taken 12/28/2019 06) Skin integrity intact: Assess nutrition Provide skin care interventions Promote nutrition Provide incontinence management interventions Assure position change Monitor skin integrity Provide skin self-assessment education Reduce skin shear, friction and tissue load Consider consult for skin integrity Goal: Healing of skin (Wound & Incision) Outcome: Goal Ongoing Flowsheets (Taken 12/28/2019 06) Healing of wound (wounds and Incisions): Provide wound/incision care as ordered Assess for signs and symptoms of wound infection Assess wound site healing Implement wound/incision care as ordered Goal: Healing of skin (Pressure Injury) Outcome: Goal Ongoing Flowsheets (Taken 12/28/2019 0638) Healing of skin (Pressure Injury): Implement pressure relieving device/specialty mattress Promote ambulation Use the National Pressure Injury Advisory Panel Staging System for grading pres sure injuries Implement pressure injury care as ordered Assess for signs and symptoms of pressure injury infection Provide pressure injury care education as ordered Assess pressure injury * Drug Level - Wilmar Schultz, AMYD - 12/27/2019 8:10 AM CDT Pharmacy Vancomycin Note Subjective: Tam Lozano is a 49 y.o. female being treated for Wound infection. Objective: Current Vancomycin Orders Medication Dose Route Frequency vancomycin (VANCOCIN) 1,000 mg in dextrose 5% (D5W) 250 mL IVPB ([id number]) 15 mg/kg Intravenous Q24H* vancomycin, pharmacy to manage 1 each Service Per Pharmacy Start Date of vancomycin therapy: 12/26/2019 Additional Abx: cefepime/flagyl Cultures: , , , OSH: acinetobacter baumanii, GPC White Blood Cells Date/Time Value Ref Range Status 12/27/2019 0716 15.2 (H) 4.5 - 11.0 K/UL Final 12/27/2019 0525 15.9 (H) 4.5 - 11.0 K/UL Final 12/27/2019 0217 14.5 (H) 4.5 - 11.0 K/UL Final 12/26/2019 0250 20.1 (H) 4.5 - 11.0 K/UL Final Creatinine Date/Time Value Ref Range Status 12/27/2019 0525 0.94 0.4 - 1.00 MG/DL Final 12/27/2019 0217 1.01 (H) 0.4 - 1.00 MG/DL Final 12/26/2019 1720 1.18 (H) 0.4 - 1.00 MG/DL Final Blood Urea Nitrogen Date/Time Value Ref Range Status 12/27/2019 0525 13 7 - 25 MG/DL Final Estimated CrCl: 68.5 Intake/Output Summary (Last 24 hours) at 12/27/2019 0810 Last data filed at 12/27/2019 0743 Gross per 24 hour Intake 720 ml Output 2425 ml Net -1705 ml Actual Weight: 71.2 kg (156 lb 15.5 oz) Dosing BW: 71.2 kg Assessment: Target levels for this patient: 1. AUC (mcg*h/mL): 400-600 Plan: 1. Continue Vancomycin 2. Next scheduled level(s): AUC levels with 6/2 Dose (4th) 3. Pharmacy will continue to monitor and adjust therapy as needed. Wilmar Schultz PHARMD 12/27/2019 * Drug Level - Wilmar SchultzAMYD - 12/26/2019 8:56 AM CDT Pharmacy Vancomycin Note Subjective: Tam Lozano is a 49 y.o. female being treated for Wound infection. Objective: Current Vancomycin Orders Medication Dose Route Frequency vancomycin (VANCOCIN) 1,000 mg in dextrose 5% (D5W) 250 mL IVPB ([id number]) 15 mg/kg Intravenous Q24H* vancomycin, pharmacy to manage 1 each Service Per Pharmacy Start Date of vancomycin therapy: 12/26/2019 Additional Abx: Cefepime/Flagyl Cultures: , , , White Blood Cells Date/Time Value Ref Range Status 12/26/2019 0250 20.1 (H) 4.5 - 11.0 K/UL Final Creatinine Date/Time Value Ref Range Status 12/26/2019 0250 1.22 (H) 0.4 - 1.00 MG/DL Final Blood Urea Nitrogen Date/Time Value Ref Range Status 12/26/2019 0250 24 7 - 25 MG/DL Final Estimated CrCl: 52 Intake/Output Summary (Last 24 hours) at 12/26/2019 0856 Last data filed at 12/26/2019 0600 Gross per 24 hour Intake 200 ml Output 600 ml Net -400 ml Actual Weight: 71.2 kg (156 lb 15.5 oz) Dosing BW: 71.2 kg Assessment: Target levels for this patient: 1. AUC (mcg*h/mL): 400-600 Plan: 1. Continue Vancomycin 1g Q24H 2. Next scheduled level(s): WIth 3rd-4th dose 3. Pharmacy will continue to monitor and adjust therapy as needed. Wilmar Schultz PHARMD 12/26/2019 * Care Coordination-Inpatient - Sergio Melo MD - 12/26/2019 5:41 AM CDT Please page Med Teaching TBD 0444 before 8AM and page med private Q after 8AM. * Advanced Care Planning/Resuscitation Status - Dante Lyle MD - 12/26/2019 1:08 AM CDT Advance Care Planning/Resuscitation Status Conversation Individuals present for advance care planning conversation: resident/fellow phys ician Pertinent details of conversation (including direct quotes from patient or surro gate): The patient they would want everything done in the event of a cardiopulmo nary arrest, including chest compressions, mechanical ventilation and ICU level care Outcome of conversation: Full Code Documents completed as a result of this conversation: None Other documents present, which outline patient/surrogate wishes: None Attestation? N/A documented in this encounter Plan of Treatment Care Team Description Date Type Specialty Cody Jaquez MD [address] [place], [place] [id number] Pressure ulcer of sacral region, stage 3 (HCC) 02/15/2020 Hospital Encounter Kourtney Harvey APRN [id number] [place], [place] [id number] 02/15/2020 Anesthesia Event Cody Jaquez MD [address] [place] [address] EXCISION SACRAL PRESSURE ULCER - PREPARA TION [...] Priority Date/Time Associated Diag nosis POC GLUCOSE 01/04/2020 9:06 AM CDT HC CBC W/ AUTOMATED DIFF Routine 01/04/2020 4:11 AM CDT HC PHOSPHOROUS, SERUM Routine 01/04/2020 4:11 AM CDT HC MAGNESIUM Routine 01/04/2020 4:11 AM CDT HC COMPREHENSIVE Routine 01/04/2020 METABOLIC PANEL 4:11 AM CDT POC GLUCOSE 01/03/2020 9:38 PM CDT POC GLUCOSE 01/03/2020 5:54 PM CDT HC C-REACTIVE PROTEIN Routine 01/03/2020 (CRP) 4:42 PM CDT HC PREALBUMIN Routine 01/03/2020 4:42 PM CDT POC GLUCOSE 01/03/2020 4:41 PM CDT POC GLUCOSE 01/03/2020 12:29 PM CDT POC GLUCOSE 01/03/2020 7:53 AM CDT HC CBC W/ AUTOMATED DIFF Routine 01/03/2020 4:00 AM CDT HC PHOSPHOROUS, SERUM Routine 01/03/2020 4:00 AM CDT HC MAGNESIUM Routine 01/03/2020 4:00 AM CDT HC COMPREHENSIVE Routine 01/03/2020 METABOLIC PANEL 4:00 AM CDT POC GLUCOSE 01/02/2020 10:03 PM CDT POC GLUCOSE 01/02/2020 6:04 PM CDT POC GLUCOSE 01/02/2020 12:35 PM CDT POC GLUCOSE 01/02/2020 7:31 AM CDT HC VANCOMYCIN 2HR POST Routine 01/02/2020 DOSE 4:00 AM CDT HC CBC W/ AUTOMATED DIFF Routine 01/02/2020 4:00 AM CDT HC PHOSPHOROUS, SERUM Routine 01/02/2020 4:00 AM CDT HC MAGNESIUM Routine 01/02/2020 4:00 AM CDT HC COMPREHENSIVE Routine 01/02/2020 METABOLIC PANEL 4:00 AM CDT HC VANCOMYCIN-TROUGH Routine 01/02/2020 1:10 AM CDT POC GLUCOSE 01/01/2020 11:11 PM CDT POC GLUCOSE 01/01/2020 6:54 PM CDT CONSULT IV THERAPY TEAM STAT 01/01/2020 5:37 PM CDT POC GLUCOSE 01/01/2020 1:24 PM CDT POC GLUCOSE 01/01/2020 7:46 AM CDT HC CBC W/ AUTOMATED DIFF Routine 01/01/2020 5:00 AM CDT HC PHOSPHOROUS, SERUM Routine 01/01/2020 5:00 AM CDT HC MAGNESIUM Routine 01/01/2020 5:00 AM CDT HC COMPREHENSIVE Routine 01/01/2020 METABOLIC PANEL 5:00 AM CDT POC GLUCOSE 12/31/2019 9:39 PM CDT POC GLUCOSE 12/31/2019 6:09 PM CDT POC GLUCOSE 12/31/2019 12:50 PM CDT POC GLUCOSE 12/31/2019 10:33 AM CDT HC LVL IV SRG PTH, GROSS Routine 12/31/2019 Abnor mal uterine bleeding & MICRO 9:58 AM CDT Thickened endometri um HC CULTURE-FUNGAL; OTHER STAT 12/31/2019 Abnor mal uterine bleeding 8:33 AM CDT Thickened endometrium HC GRAM STAIN STAT 12/31/2019 Abnormal uterin e bleeding 8:33 AM CDT Thickened endometrium HC CULTURE-BACTERIAL STAT 12/31/2019 Abnormal uterine bleeding 8:33 AM CDT Thickened endometrium HC CULTURE-ANAEROBIC STAT 12/31/2019 Abnormal uterine bleeding 8:33 AM CDT Thickened endometrium HYSTEROSCOPY WITH 12/31/2019 Abnormal uterine bl eeding ENDOMETRIAL BIOPSY/ 7:43 AM CDT Thickened endomet rium POLYPECTOMY WITH/ WITHOUT DILATION AND CURETTAGE EXCISION SACRAL PRESSURE 12/31/2019 Abnormal round valley rine bleeding ULCER WITH OSTECTOMY- 7:43 AM CDT Thickened endom etrium PREPARATION FOR MUSCLE/ MYOCUTANEOUS FLAP/ SKIN GRAFT CLOSURE POC GLUCOSE 12/31/2019 7:06 AM CDT HC TEST-URINE STAT 12/31/2019 6:11 AM CDT HC CBC W/ AUTOMATED DIFF Routine 12/31/2019 5:00 AM CDT HC PHOSPHOROUS, SERUM Routine 12/31/2019 5:00 AM CDT HC MAGNESIUM Routine 12/31/2019 5:00 AM CDT HC COMPREHENSIVE Routine 12/31/2019 METABOLIC PANEL 5:00 AM CDT POC GLUCOSE 12/30/2019 10:22 PM CDT BLOOD BANK SAMPLE HOLD 12/30/2019 10:00 PM CDT HC ABO GROUP Routine 12/30/2019 7:18 PM CDT POC GLUCOSE 12/30/2019 5:23 PM CDT POC GLUCOSE 12/30/2019 12:13 PM CDT POC GLUCOSE 12/30/2019 8:52 AM CDT HC CBC W/ AUTOMATED DIFF Routine 12/30/2019 3:45 AM CDT HC PHOSPHOROUS, SERUM Routine 12/30/2019 3:45 AM CDT HC MAGNESIUM Routine 12/30/2019 3:45 AM CDT HC COMPREHENSIVE Routine 12/30/2019 METABOLIC PANEL 3:45 AM CDT POC GLUCOSE 12/30/2019 3:39 AM CDT POC GLUCOSE 12/29/2019 11:47 PM CDT POC GLUCOSE 12/29/2019 9:36 PM CDT POC GLUCOSE 12/29/2019 5:41 PM CDT POC GLUCOSE 12/29/2019 1:11 PM CDT POC GLUCOSE 12/29/2019 8:00 AM CDT HC VANCOMYCIN 2HR POST 12/29/2019 DOSE 2:50 AM CDT HC CBC W/ AUTOMATED DIFF Routine 12/29/2019 2:50 AM CDT HC PHOSPHOROUS, SERUM Routine 12/29/2019 2:50 AM CDT HC MAGNESIUM Routine 12/29/2019 2:50 AM CDT HC COMPREHENSIVE Routine 12/29/2019 METABOLIC PANEL 2:50 AM CDT HC VANCOMYCIN-TROUGH Routine 12/29/2019 12:30 AM CDT POC GLUCOSE 12/28/2019 10:01 PM CDT POC GLUCOSE 12/28/2019 5:12 PM CDT POC GLUCOSE 12/28/2019 12:25 PM CDT POC GLUCOSE 12/28/2019 7:58 AM CDT CBC AND DIFF Routine 12/28/2019 5:08 AM CDT HC PHOSPHOROUS, SERUM Routine 12/28/2019 5:08 AM CDT HC MAGNESIUM Routine 12/28/2019 5:08 AM CDT HC COMPREHENSIVE Routine 12/28/2019 METABOLIC PANEL 5:08 AM CDT HC CBC W/ AUTOMATED DIFF Routine 12/28/2019 1:00 AM CDT TRANSFUSE RBC'S Routine 12/27/2019 11:04 PM CDT POC GLUCOSE 12/27/2019 9:19 PM CDT HC PT(INR) Add on 12/27/2019 7:00 PM CDT CBC STAT 12/27/2019 7:00 PM CDT HC C-REACTIVE PROTEIN Routine 12/27/2019 (CRP) 5:30 PM CDT HC PREALBUMIN Routine 12/27/2019 5:30 PM CDT POC GLUCOSE 12/27/2019 5:14 PM CDT HC BASIC METABOLIC PANEL Routine 12/27/2019 3:50 PM CDT POC GLUCOSE 12/27/2019 12:25 PM CDT POC GLUCOSE 12/27/2019 7:42 AM CDT HC CBC W/ AUTOMATED DIFF Routine 12/27/2019 7:16 AM CDT HC ABO GROUP Routine 12/27/2019 7:16 AM CDT CONSULT IV THERAPY TEAM ADRIANA 12/27/2019 6:23 AM CDT HC IRON BINDING CAPACITY Add on 12/27/2019 + %SAT 5:25 AM CDT HC CBC W/ AUTOMATED DIFF Routine 12/27/2019 5:25 AM CDT HC PHOSPHOROUS, SERUM Routine 12/27/2019 5:25 AM CDT HC MAGNESIUM Routine 12/27/2019 5:25 AM CDT HC COMPREHENSIVE Routine 12/27/2019 METABOLIC PANEL 5:25 AM CDT HC CBC W/ AUTOMATED DIFF Routine 12/27/2019 2:17 AM CDT HC PHOSPHOROUS, SERUM Routine 12/27/2019 2:17 AM CDT HC MAGNESIUM Routine 12/27/2019 2:17 AM CDT HC COMPREHENSIVE Routine 12/27/2019 METABOLIC PANEL 2:17 AM CDT POC GLUCOSE 12/26/2019 9:27 PM CDT POC GLUCOSE 12/26/2019 6:27 PM CDT HC BASIC METABOLIC PANEL Routine 12/26/2019 5:20 PM CDT POC GLUCOSE 12/26/2019 11:48 AM CDT HC CULTURE-URINE STAT 12/26/2019 10:45 AM CDT HC GRAM STAIN 12/26/2019 10:40 AM CDT CULTURE-WOUND/TISSUE/FLUI STAT 12/26/2019 D(AEROBIC 10:40 AM CDT ONLY)W/SENSITIVITY POC GLUCOSE 12/26/2019 7:48 AM CDT CULTURE-BLOOD STAT 12/26/2019 W/SENSITIVITY 4:36 AM CDT HC LACTIC ACID(LACTATE) Routine 12/26/2019 4:36 AM CDT HC CULTURE-BLOOD STAT 12/26/2019 2:50 AM CDT HC LACTIC ACID - BG STAT 12/26/2019 SYRINGE 2:50 AM CDT HC CBC W/ AUTOMATED DIFF 12/26/2019 2:50 AM CDT HC PREALBUMIN Routine 12/26/2019 2:50 AM CDT HC MAGNESIUM 12/26/2019 2:50 AM CDT HC LIPASE STAT 12/26/2019 2:50 AM CDT HC AMYLASE STAT 12/26/2019 2:50 AM CDT HC COMPREHENSIVE 12/26/2019 METABOLIC PANEL 2:50 AM CDT COVID-19 (SARS-COV-2) PCR Routine 12/26/2019 1:[address] ABD/PEL EXTERNAL Routine 12/25/2019 IMAGING 12:05 AM CDT GENERAL RAD CHEST Routine 12/25/2019 EXTERNAL IMAGING 12:00 AM CDT documented in this encounter Results * POC GLUCOSE (01/04/2020 9:06 AM CDT) Glucose, POC 250 (H) 70 - 100 MG/DL [facility] Specimen Performing Organization Address [facility] Ph one Number MAIN LAB [address] [place] [address] * PHOSPHORUS (01/04/2020 4:11 AM CDT) Phosphorus 2.3 2.0 - 4.5 MG/DL [facility] Specimen Blood Performing Organization Address [facility] Ph one Number MAIN LAB [address] [place] [phone] * MAGNESIUM (01/04/2020 4:11 AM CDT) Magnesium 2.0 1.6 - 2.6 mg/dL MAIN [facility] Specimen Blood Performing Organization Address [facility] Ph one Number MAIN LAB [address] [place] [phone] * COMPREHENSIVE METABOLIC PANEL (01/04/2020 4:11 AM CDT) Sodium 138 137 - 147 MMOL/L [facility] Potassium 4.7 3.5 - 5.1 MMOL/L [facility] Chloride 113 (H) 98 - 110 MMOL/L [facility] Glucose 281 (H) 70 - 100 MG/DL [facility] Blood Urea 17 7 - 25 MG/DL [facility] Nitrogen Creatinine 0.93 0.4 - 1.00 MG/DL [facility] Calcium 8.2 (L) 8.5 - 10.6 MG/DL [facility] Total Protein 6.7 6.0 - 8.0 G/DL [facility] Total Bilirubin 0.2 (L) 0.3 - 1.2 MG/DL [facility] Albumin 2.8 (L) 3.5 - 5.0 G/DL [facility] Alk Phosphatase 54 25 - 110 U/L [facility] AST (SGOT) 8 7 - 40 U/L [facility] CO2 16 (L) 21 - 30 MMOL/L [facility] ALT (SGPT) 10 7 - 56 U/L [facility] Anion Gap 9 3 - 12 [facility] eGFR Non >60 >60 mL/min [facility] Comment: [place] The eGFR is not validated f or use in drug dosing adjustments. Continue to use estimated creatinine clearance per dosing reference text. Please contact the Clinical Pharmacist for questions. eGFR >60 >60 mL/min [facility] [place] Comment: The eGFR is not validated for use in drug dosing adjustments. Continue to use estimated creatinine clearance per dosing reference text. Please contact the Clinical Pharmacist for questions. Specimen Blood Performing Organization Address City/State/Zipcode Ph one Number [facility] [address] [place] [address] * CBC AND DIFF (01/04/2020 4:11 AM CDT) White Blood 16.2 (H) 4.5 - 11.0 K/UL [facility] Cells RBC 2.85 (L) 4.0 - 5.0 M/UL [facility] Hemoglobin 8.1 (L) 12.0 - 15.0 GM/DL [facility] Hematocrit 25.2 (L) 36 - 45 % [facility] MCV 88.4 80 - 100 FL [facility] MCH 28.5 26 - 34 PG [facility] MCHC 32.3 32.0 - 36.0 G/DL [facility] RDW 19.0 (H) 11 - 15 % [facility] Platelet Count 401 (H) 150 - 400 K/UL [facility] MPV 8.2 7 - 11 FL [facility] Neutrophils 76 41 - 77 % [facility] Lymphocytes 17 (L) 24 - 44 % [facility] Monocytes 6 4 - 12 % [facility] Eosinophils 1 0 - 5 % [facility] Basophils 0 0 - 2 % [facility] Absolute 12.28 (H) 1.8 - 7.0 K/UL [facility] Neutrophil Count Absolute Lymph 2.66 1.0 - 4.8 K/UL [facility] Count Absolute 0.94 (H) 0 - 0.80 K/UL [facility] Monocyte Count Absolute 0.21 0 - 0.45 K/UL MAIN LAB Eosinophil Count Absolute 0.07 0 - 0.20 K/UL MAIN LAB Basophil Count Specimen Blood Performing Organization Address City/[facility] Ph one Number MAIN LAB [address] [place] [address] * POC GLUCOSE (01/03/2020 9:38 PM CDT) Glucose, POC 197 (H) 70 - 100 MG/DL [facility] Specimen Performing Organization Address City/[facility] Ph one Number MAIN LAB [address] [place] [address] * POC GLUCOSE (01/03/2020 5:54 PM CDT) Glucose, POC 265 (H) 70 - 100 MG/DL MAIN LAB Specimen Performing Organization Address [facility] Ph one Number MAIN LAB [address] [place] [address] * C REACTIVE PROTEIN (CRP) (01/03/2020 4:42 PM CDT) C-Reactive 3.07 (H) <1.0 MG/DL MAIN LAB Protein Specimen Blood Performing Organization Address [facility] Ph one Number MAIN LAB [address] [place] [address] * PREALBUMIN (01/03/2020 4:42 PM CDT) Prealbumin 29.0 17 - 34 MG/DL MAIN LAB Specimen Blood Performing Organization Address [facility] Ph one Number MAIN LAB [address] [place] [address] * POC GLUCOSE (01/03/2020 4:41 PM CDT) Glucose, POC 276 (H) 70 - 100 MG/DL MAIN LAB Specimen Performing Organization Address [facility] Ph one Number MAIN LAB [address] [place] [address] * POC GLUCOSE (01/03/2020 12:29 PM CDT) Glucose, POC 194 (H) 70 - 100 MG/DL [facility] Specimen Performing Organization Address City/[facility] Ph one Number MAIN LAB [address] [place] [address] * POC GLUCOSE (01/03/2020 7:53 AM CDT) Glucose, POC 173 (H) 70 - 100 MG/DL [facility] Specimen Performing Organization Address [facility] one Number MAIN LAB [address] [place] [address] * PHOSPHORUS (01/03/2020 4:00 AM CDT) Phosphorus 2.4 2.0 - 4.5 MG/DL [facility] Specimen Blood Performing Organization Address [facility] one Number MAIN LAB [address] [place] [address] * MAGNESIUM (01/03/2020 4:00 AM CDT) Magnesium 1.6 1.6 - 2.6 mg/dL MAIN LAB Specimen Blood Performing Organization Address [facility] one Number MAIN LAB [address] [place] [address] * COMPREHENSIVE METABOLIC PANEL (01/03/2020 4:00 AM CDT) Sodium 140 137 - 147 MMOL/L [facility] Potassium 4.7 3.5 - 5.1 MMOL/L [facility] Chloride 116 (H) 98 - 110 MMOL/L [facility] Glucose 176 (H) 70 - 100 MG/DL [facility] Blood Urea 17 7 - 25 MG/DL [facility] Nitrogen Creatinine 0.99 0.4 - 1.00 MG/DL [facility] Calcium 8.2 (L) 8.5 - 10.6 MG/DL [facility] Total Protein 6.5 6.0 - 8.0 G/DL [facility] Total Bilirubin 0.2 (L) 0.3 - 1.2 MG/DL [facility] Albumin 2.7 (L) 3.5 - 5.0 G/DL [facility] Alk Phosphatase 61 25 - 110 U/L [facility] AST (SGOT) 10 7 - 40 U/L [facility] CO2 15 (L) 21 - 30 MMOL/L [facility] ALT (SGPT) 11 7 - 56 U/L [facility] Anion Gap 9 3 - 12 [facility] eGFR Non 60 (L) >60 mL/min [facility] Comment: [place] The eGFR is not validated f or use in drug dosing adjustments. Continue to use estimated creatinine clearance per dosing reference text. Please contact the Clinical Pharmacist for questions. eGFR >60 >60 mL/min [facility]IN [facility] [place] Comment: The eGFR is not validated for use in drug dosing adjustments. Continue to use estimated creatinine clearance per dosing reference text. Please contact the Clinical Pharmacist for questions. Specimen Blood Performing Organization Address City/[facility] Ph one Number [facility] MA[facility] [address] [place] [address] * CBC AND DIFF (01/03/2020 4:00 AM CDT) White Blood 15.4 (H) 4.5 - 11.0 K/UL [facility] Cells RBC 2.72 (L) 4.0 - 5.0 M/UL [facility] Hemoglobin 7.8 (L) 12.0 - 15.0 GM/DL [facility] Hematocrit 23.8 (L) 36 - 45 % [facility] MCV 87.5 80 - 100 FL [facility] MCH 28.7 26 - 34 PG [facility] MCHC 32.8 32.0 - 36.0 G/DL [facility] RDW 18.4 (H) 11 - 15 % [facility] Platelet Count 367 150 - 400 K/UL [facility] MPV 8.2 7 - 11 FL [facility] Neutrophils 71 41 - 77 % [facility] Lymphocytes 21 (L) 24 - 44 % [facility] Monocytes 5 4 - 12 % [facility] Eosinophils 2 0 - 5 % [facility] Basophils 1 0 - 2 % [facility] Absolute 10.95 (H) 1.8 - 7.0 K/UL [facility] Neutrophil Count Absolute Lymph 3.31 1.0 - 4.8 K/UL [facility] Count Absolute 0.83 (H) 0 - 0.80 K/UL [facility] Monocyte Count Absolute 0.26 0 - 0.45 K/UL [facility] Eosinophil Count Absolute 0.09 0 - 0.20 K/UL [facility] Basophil Count Specimen Blood Performing Organization Address City/[facility] Ph one Number [facility] MAIN [facility] [address] [place] [address] * POC GLUCOSE (01/02/2020 10:03 PM CDT) Glucose, POC 162 (H) 70 - 100 MG/DL [facility] Specimen Performing Organization Address City/[facility] Ph one Number MAIN LAB [address] [place] [address] * POC GLUCOSE (01/02/2020 6:04 PM CDT) Glucose, POC 152 (H) 70 - 100 MG/DL [facility] Specimen Performing Organization Address [facility] Ph one Number MAIN LAB [address] [place] [address] * POC GLUCOSE (01/02/2020 12:35 PM CDT) Glucose, POC 148 (H) 70 - 100 MG/DL MAIN LAB Specimen Performing Organization Address [facility] Ph one Number MAIN LAB [address] [place] [address] * POC GLUCOSE (01/02/2020 7:31 AM CDT) Glucose, POC 118 (H) 70 - 100 MG/DL MAIN LAB Specimen Performing Organization Address [facility] one Number MAIN LAB [address] [place] [address] * PHOSPHORUS (01/02/2020 4:00 AM CDT) Phosphorus 2.4 2.0 - 4.5 MG/DL MAIN LAB Specimen Blood Performing Organization Address [facility] Ph one Number MAIN LAB [address] [place] [address] * MAGNESIUM (01/02/2020 4:00 AM CDT) Magnesium 1.5 (L) 1.6 - 2.6 mg/dL MAIN LAB Specimen Blood Performing Organization Address [facility] Ph one Number MAIN LAB [address] [place] [address] * COMPREHENSIVE METABOLIC PANEL (01/02/2020 4:00 AM CDT) Sodium 143 137 - 147 MMOL/L [facility] Potassium 4.2 3.5 - 5.1 MMOL/L [facility] Chloride 119 (H) 98 - 110 MMOL/L [facility] Glucose 109 (H) 70 - 100 MG/DL [facility] Blood Urea 16 7 - 25 MG/DL [facility] Nitrogen Creatinine 1.02 (H) 0.4 - 1.00 MG/DL [facility] Calcium 7.8 (L) 8.5 - 10.6 MG/DL [facility] Total Protein 6.2 6.0 - 8.0 G/DL [facility] Total Bilirubin 0.2 (L) 0.3 - 1.2 MG/DL [facility] Albumin 2.5 (L) 3.5 - 5.0 G/DL [facility] Alk Phosphatase 55 25 - 110 U/L [facility] AST (SGOT) 9 7 - 40 U/L [facility] CO2 16 (L) 21 - 30 MMOL/L [facility] ALT (SGPT) 10 7 - 56 U/L [facility] Anion Gap 8 3 - 12 [facility] eGFR Non 58 (L) >60 mL/min [facility] Comment: [place] The eGFR is not validated f or use in drug dosing adjustments. Continue to use estimated creatinine clearance per dosing reference text. Please contact the Clinical Pharmacist for questions. eGFR >60 >60 mL/min [facility] [place] Comment: The eGFR is not validated for use in drug dosing adjustments. Continue to use estimated creatinine clearance per dosing reference text. Please contact the Clinical Pharmacist for questions. Specimen Blood Performing Organization Address City/State/Zipcode Ph one Number MAIN LAB [address] [place] [address] * CBC AND DIFF (01/02/2020 4:00 AM CDT) White Blood 16.0 (H) 4.5 - 11.0 K/UL [facility] Cells RBC 2.73 (L) 4.0 - 5.0 M/UL [facility] Hemoglobin 7.6 (L) 12.0 - 15.0 GM/DL [facility] Hematocrit 23.9 (L) 36 - 45 % [facility] MCV 87.7 80 - 100 FL [facility] MCH 27.9 26 - 34 PG [facility] MCHC 31.8 (L) 32.0 - 36.0 G/DL [facility] RDW 18.6 (H) 11 - 15 % [facility] Platelet Count 410 (H) 150 - 400 K/UL [facility] MPV 7.8 7 - 11 FL [facility] Neutrophils 66 41 - 77 % [facility] Lymphocytes 26 24 - 44 % [facility] Monocytes 5 4 - 12 % [facility] Eosinophils 2 0 - 5 % [facility] Basophils 1 0 - 2 % MAIN LAB Absolute 10.71 (H) 1.8 - 7.0 K/UL [facility] Neutrophil Count Absolute Lymph 4.12 1.0 - 4.8 K/UL MAIN LAB Count Absolute 0.82 (H) 0 - 0.80 K/UL MAIN LAB Monocyte Count Absolute 0.28 0 - 0.45 K/UL [facility] Eosinophil Count Absolute 0.09 0 - 0.20 K/UL [facility] Basophil Count Specimen Blood Performing Organization Address City/[facility] one Number MAIN LAB [address] [place] [address] * VANCOMYCIN 2HR POST DOSE (01/02/2020 4:00 AM CDT) Vancomycin 2HR 32.1 ug/mL MAIN LAB POST Dose Specimen Blood Performing Organization Address [facility] one Number MAIN LAB [address] [place] [address] * VANCOMYCIN TROUGH (01/02/2020 1:10 AM CDT) Vancomycin 12.8 10.0 - 20.0 MCG/ML MAIN LAB Trough Specimen Blood, venous - Blood Performing Organization [facility] one Number MAIN LAB [address] [place] [id number] * POC GLUCOSE (01/01/2020 11:11 PM CDT) Glucose, POC 181 (H) 70 - 100 MG/DL [facility] Specimen Performing Organization Address [facility] Ph one Number MAIN LAB [address] [place] [address] * POC GLUCOSE (01/01/2020 6:54 PM CDT) Glucose, POC 238 (H) 70 - 100 MG/DL MAIN LAB Specimen Performing Organization Address [facility] one Number MAIN LAB [address] [place] [id number] * POC GLUCOSE (01/01/2020 1:24 PM CDT) Glucose, POC 117 (H) 70 - 100 MG/DL MAIN LAB Specimen Performing Organization Address [facility] one Number MAIN LAB [address] [place] [address] * POC GLUCOSE (01/01/2020 7:46 AM CDT) Glucose, POC 153 (H) 70 - 100 MG/DL [facility] Specimen Performing Organization Address [facility] one Number MAIN LAB [address] [place] [address] * PHOSPHORUS (01/01/2020 5:00 AM CDT) Phosphorus 2.1 2.0 - 4.5 MG/DL [facility] Specimen Blood Performing Organization Address [facility] one Number MAIN LAB [address] [place] [address] * MAGNESIUM (01/01/2020 5:00 AM CDT) Magnesium 1.6 1.6 - 2.6 mg/dL MAIN LAB Specimen Blood Performing Organization Address [facility] one Number MAIN LAB [address] [place] [address] * COMPREHENSIVE METABOLIC PANEL (01/01/2020 5:00 AM CDT) Sodium 141 137 - 147 MMOL/L [facility] Potassium 4.5 3.5 - 5.1 MMOL/L [facility] Chloride 118 (H) 98 - 110 MMOL/L [facility] Glucose 161 (H) 70 - 100 MG/DL [facility] Blood Urea 17 7 - 25 MG/DL [facility] Nitrogen Creatinine 0.99 0.4 - 1.00 MG/DL [facility] Calcium 7.9 (L) 8.5 - 10.6 MG/DL [facility] Total Protein 6.4 6.0 - 8.0 G/DL [facility] Total Bilirubin 0.2 (L) 0.3 - 1.2 MG/DL [facility] Albumin 2.5 (L) 3.5 - 5.0 G/DL [facility] Alk Phosphatase 63 25 - 110 U/L [facility] AST (SGOT) 12 7 - 40 U/L [facility] CO2 14 (L) 21 - 30 MMOL/L [facility] ALT (SGPT) 11 7 - 56 U/L [facility] Anion Gap 9 3 - 12 [facility] eGFR Non 60 (L) >60 mL/min [facility] Comment: [place] The eGFR is not validated f or use in drug dosing adjustments. Continue to use estimated creatinine clearance per dosing reference text. Please contact the Clinical Pharmacist for questions. eGFR >60 >60 mL/min [facility] [place] Comment: The eGFR is not validated for use in drug dosing adjustments. Continue to use estimated creatinine clearance per dosing reference text. Please contact the Clinical Pharmacist for questions. Specimen Blood Performing Organization Address [facility] Ph one Number [facility] [address] [place] [address] * CBC AND DIFF (01/01/2020 5:00 AM CDT) White Blood 17.6 (H) 4.5 - 11.0 K/UL [facility] Cells RBC 2.75 (L) 4.0 - 5.0 M/UL [facility] Hemoglobin 7.7 (L) 12.0 - 15.0 GM/DL [facility] Hematocrit 23.7 (L) 36 - 45 % [facility] MCV 86.3 80 - 100 FL [facility] MCH 27.9 26 - 34 PG [facility] MCHC 32.3 32.0 - 36.0 G/DL [facility] RDW 18.1 (H) 11 - 15 % [facility] Platelet Count 389 150 - 400 K/UL [facility] MPV 7.6 7 - 11 FL [facility] Neutrophils 80 (H) 41 - 77 % [facility] Lymphocytes 15 (L) 24 - 44 % [facility] Monocytes 4 4 - 12 % [facility] Eosinophils 0 0 - 5 % [facility] Basophils 1 0 - 2 % [facility] Absolute 14.02 (H) 1.8 - 7.0 K/UL [facility] Neutrophil Count Absolute Lymph 2.63 1.0 - 4.8 K/UL [facility] Count Absolute 0.78 0 - 0.80 K/UL [facility] Monocyte Count Absolute 0.05 0 - 0.45 K/UL [facility] Eosinophil Count Absolute 0.11 0 - 0.20 K/UL [facility] Basophil Count Specimen Blood Performing Organization Address City/[facility] one Number [facility] MAIN [facility] [address] [place] [address] * POC GLUCOSE (12/31/2019 9:39 PM CDT) Glucose, POC 248 (H) 70 - 100 MG/DL [facility]IN [facility] Specimen Performing Organization Address [facility] Ph one Number MAIN LAB [address] [place] [address] * POC GLUCOSE (12/31/2019 6:09 PM CDT) Glucose, POC 287 (H) 70 - 100 MG/DL [facility]IN [facility] Specimen Performing Organization Address [facility] Ph one Number MAIN LAB [address] [place] [address] * POC GLUCOSE (12/31/2019 12:50 PM CDT) Glucose, POC 200 (H) 70 - 100 MG/DL MAIN LAB Specimen Performing Organization Address [facility] Ph one Number MAIN LAB [address] [place] [address] * POC GLUCOSE (12/31/2019 10:33 AM CDT) Glucose, POC 163 (H) 70 - 100 MG/DL MAIN LAB Specimen Performing Organization Address [facility] Ph one Number [facility] LAB [address] [place] [address] * SURGICAL PATHOLOGY (12/31/2019 9:58 AM CDT) PATHOLOGY [facility] MAIN LAB [facility] [email or web address] Department of Pathology and Laboratory Medicine [address] [place] [address] Surgical Pathology Office: [phone] SURGICAL PATHOLOGY REPORT NAME: TAM LOZANO SURG PATH #: [id number] MR #: [id number] SPECIMEN CLASS: SR BILLING #: [id number] ALT ID #: LOCATION: [facility] DATE OF PROCEDURE: 12/31/2019 AGE: 49 SEX: F DATE RECEIVED: 12/31/2019 : 1970 TIME RECEIVED: 10:52 PHYSICIAN: CODY JAQUEZ DATE OF REPORT: 01/01/2020 COPY TO: DATE OF PRINTIN01/01/2020 ############################## ############################## ############ Final Diagnosis: A. Endometrium, curettage: Inactive endometrial glands with pseudo-decidualized stroma compatible with hormonal effect. Negative for hyperplasia or carcinoma. Fragments of benign ecto and endocervical tissue. Smooth muscle bundles. Attestation: By this signature, I attest that I have personally formulated the final interpretation expressed in this report and that the above diagnosis is based upon my examination of the slides and/or other material indicated in this report. +++ +++ Nereyda Whitman MD /01/01/2020 ############################## ############################## ############ Material Received: A: endometrial curettings History: 49-year-old female with a history of abnormal uterine bleeding, thickened endometrium. Gross Description: A. Received in formalin labeled "endometrial curettings" is a 4.0 x 3.5 x 0.4 cm aggregate of rees-red blood clot admixed with scant fragments of pale rees soft tissue. The specimen is filtered and entirely submitted in cassettes A1-A3. ([facility]) [facility]/12/31/2019 Specimen Tissue - Endometrial Performing Organization Address City/State/Zipcode Ph one Number [facility] [address] [place] [address] * CULTURE-FUNGAL,OTHER (12/31/2019 8:33 AM CDT) Battery Name FUNGUS CULTURE MAIN LAB Specimen TISSUE [facility] LAB Description SACRUM PRESSURE ULCER Special NONE MAIN LAB Requests Culture One colony [facility] LAB DACIA PARAPSILOSIS One colony DACIA ALBICANS Susceptibility intended for research use only. (A) Report Status FINAL [facility] LAB 01/06/2020 Organism ID One colony [facility] DACIA PARAPSILOSIS Organism ID One colony [facility] DACIA ALBICANS Specimen Tissue - Tissue Antibiotic Method Susceptibility Organism Micafungin YEAST SRINIVAS 1.0 SUSCEPTIBLE: Susceptible One colony dacia parapsilosis Fluconazole YEAST SRINIVAS 1.0 SUSCEPTIBLE: Susceptible One colony dacia parapsilosis Method YEAST SRINIVAS YEAST SRINIVAS One colony dacia parapsilosis Micafungin YEAST SRINIVAS 0.015 SUSCEPTIBLE: Susceptible One colony dacia albicans Fluconazole YEAST SRINIVAS 0.5 SUSCEPTIBLE: Susceptible One colony dacia albicans Method YEAST SRINIVAS YEAST SRINIVAS One colony dacia albicans Performing Organization Address [facility] Ph one Number MAIN LAB [address] [place] [address] * GRAM STAIN (12/31/2019 8:33 AM CDT) Battery Name GRAM STAIN [facility] MAIN LAB Specimen TISSUE MAIN LAB Description SACRUM PRESSURE ULCER Special NONE MAIN LAB Requests Gram Stain MANY MAIN LAB NEUTROPHILS MODERATE GRAM POSITIVE COCCI Report Status FINAL MAIN LAB 12/31/2019 Specimen Tissue - Tissue Performing Organization Address [facility] Ph one Number MAIN LAB [address] [place] [address] * CULTURE-WOUND/TISSUE/FLUID(AEROBIC ONLY)W/SENSITIVITY (12/31/2019 8:33 AM CDT) Battery Name ROUTINE CULTURE [facility] MAIN LAB Specimen TISSUE [facility] MAIN LAB Description SACRUM PRESSURE ULCER Special NONE MAIN LAB Requests Direct Gram MANY [facility] MAIN LAB Stain NEUTROPHILS MODERATE GRAM POSITIVE COCCI Culture Light growth MAIN LAB METHICILLIN RESISTANT STAPHYLOCOCCUS AUREUS Positive for PBP2A, indicating that isolate is MRSA Four colonies STREPTOCOCCUS AGALACTIAE(GROUP B) (A) Report Status FINAL MAIN LAB 01/03/2020 Organism ID Light growth MAIN LAB METHICILLIN RESISTANT STAPHYLOCOCCUS AUREUS Positive for PBP2A, indicating that isolate is MRSA Specimen Tissue - Tissue Antibiotic Method Susceptibility Organism Clindamycin SRINIVAS (MCG/ML) INTERPRETATION >2 RESISTANT: Resistant Light growth methicillin resistant staphylococcus aureus positive for pbp2a, indicating that isolate is mrsa Erythromycin SRINIVAS (MCG/ML) INTERPRETATION >4 RESISTANT: Resistant Light growth methicillin resistant staphylococcus aureus positive for pbp2a, indicating that isolate is mrsa Oxacillin SRINIVAS (MCG/ML) INTERPRETATION >2 RESISTANT: Resistant Light growth methicillin resistant staphylococcus aureus positive for pbp2a, indicating that isolate is mrsa Vancomycin SRINIVAS (MCG/ML) INTERPRETATION 1 SUSCEPTIBLE: Susceptible Light growth methicillin resistant staphylococcus aureus positive for pbp2a, indicating that isolate is mrsa Tetracycline SRINIVAS (MCG/ML) INTERPRETATION <=0.5 SUSCEPTIBLE: Susceptible Light growth methicillin resistant staphylococcus aureus positive for pbp2a, indicating that isolate is mrsa Trimethsulfa SRINIVAS (MCG/ML) INTERPRETATION RESISTANT: Resistant Light growth methicillin resistant staphylococcus aureus positive for pbp2a, indicating that isolate is mrsa Gentamicin SRINIVAS (MCG/ML) INTERPRETATION <=2 SUSCEPTIBLE: Susceptible Light growth methicillin resistant staphylococcus aureus positive for pbp2a, indicating that isolate is mrsa Rifampin SRINIVAS (MCG/ML) INTERPRETATION <=0.5 SUSCEPTIBLE: Susceptible Light growth methicillin resistant staphylococcus aureus positive for pbp2a, indicating that isolate is mrsa Linezolid SRINIVAS (MCG/ML) INTERPRETATION 1 SUSCEPTIBLE: Susceptible Light growth methicillin resistant staphylococcus aureus positive for pbp2a, indicating that isolate is mrsa Method SRINIVAS (MCG/ML) INTERPRETATION SRINIVAS (MCG/ML) INTERPRETATION Light growth methicillin resistant staphylococcus aureus positive for pbp2a, indicating that isolate is mrsa Performing Organization Address [facility] Ph one Number MAIN LAB [address] [place] [id number] * CULTURE-ANAEROBIC (12/31/2019 8:33 AM CDT) Battery Name ANAEROBE CULTURE MAIN LAB Specimen TISSUE MAIN LAB Description SACRUM PRESSURE ULCER Special NONE MAIN LAB Requests Culture NO ANAEROBES ISOLATED MAIN LAB Report Status FINAL MAIN LAB 01/05/2020 Specimen Tissue - Tissue Performing Organization Address [facility] Ph one Number MAIN LAB [address] [place] [address] * POC GLUCOSE (12/31/2019 7:06 AM CDT) Glucose, POC 97 70 - 100 MG/DL MAIN LAB Specimen Performing Organization Address [facility] Ph one Number MAIN LAB [address] [place] [address] * TEST-URINE (12/31/2019 6:11 AM CDT) Urine-HCG NEG MAIN LAB Samples with Specific [place] <1.010 may result in a false negative test Specific 1.014 MAIN LAB [place] Specimen Urine - Urine Performing Organization Address [facility] Ph one Number MAIN LAB [address] [place] [address] * PHOSPHORUS (12/31/2019 5:00 AM CDT) Phosphorus 2.3 2.0 - 4.5 MG/DL MAIN LAB Specimen Blood Performing Organization Address [facility] one Number [facility] MAIN [facility] [address] [place] [address] * MAGNESIUM (12/31/2019 5:00 AM CDT) Magnesium 1.6 1.6 - 2.6 mg/dL [facility] MAIN LAB Specimen Blood Performing Organization Address [facility] one Number [facility] MAIN [facility] [address] [place] [address] * COMPREHENSIVE METABOLIC PANEL (12/31/2019 5:00 AM CDT) Sodium 142 137 - 147 MMOL/L [facility] Potassium 4.1 3.5 - 5.1 MMOL/L [facility] Chloride 118 (H) 98 - 110 MMOL/L [facility] Glucose 114 (H) 70 - 100 MG/DL [facility] Blood Urea 11 7 - 25 MG/DL [facility] Nitrogen Creatinine 0.84 0.4 - 1.00 MG/DL [facility] Calcium 7.9 (L) 8.5 - 10.6 MG/DL [facility] Total Protein 6.2 6.0 - 8.0 G/DL [facility] Total Bilirubin 0.2 (L) 0.3 - 1.2 MG/DL [facility] Albumin 2.6 (L) 3.5 - 5.0 G/DL [facility] Alk Phosphatase 70 25 - 110 U/L [facility] AST (SGOT) 10 7 - 40 U/L [facility] CO2 15 (L) 21 - 30 MMOL/L [facility] ALT (SGPT) 11 7 - 56 U/L [facility] Anion Gap 9 3 - 12 [facility] eGFR Non >60 >60 mL/min [facility] Comment: [place] The eGFR is not validated f or use in drug dosing adjustments. Continue to use estimated creatinine clearance per dosing reference text. Please contact the Clinical Pharmacist for questions. eGFR >60 >60 mL/min [facility] [place] Comment: The eGFR is not validated for use in drug dosing adjustments. Continue to use estimated creatinine clearance per dosing reference text. Please contact the Clinical Pharmacist for questions. Specimen Blood Performing Organization Address [facility] Ph one Number [facility] [address] [place] [address] * CBC AND DIFF (12/31/2019 5:00 AM CDT) [facility] White Blood 13.2 (H) 4.5 - 11.0 K/UL MAIN LAB Cells RBC 2.99 (L) 4.0 - 5.0 M/UL [facility] Hemoglobin 8.4 (L) 12.0 - 15.0 GM/DL MAIN LAB Hematocrit 25.8 (L) 36 - 45 % MAIN LAB MCV 86.5 80 - 100 FL MAIN LAB MCH 28.1 26 - 34 PG MAIN LAB MCHC 32.5 32.0 - 36.0 G/DL MAIN LAB RDW 18.5 (H) 11 - 15 % [facility] Platelet Count 432 (H) 150 - 400 K/UL MAIN LAB MPV 7.4 7 - 11 FL MAIN LAB Neutrophils 73 41 - 77 % [facility] Lymphocytes 19 (L) 24 - 44 % MAIN LAB Monocytes 6 4 - 12 % MAIN LAB Eosinophils 2 0 - 5 % MAIN LAB Basophils 0 0 - 2 % MAIN LAB Absolute 9.63 (H) 1.8 - 7.0 K/UL [facility] Neutrophil Count Absolute Lymph 2.50 1.0 - 4.8 K/UL MAIN LAB Count Absolute 0.77 0 - 0.80 K/UL MAIN LAB Monocyte Count Absolute 0.25 0 - 0.45 K/UL MAIN LAB Eosinophil Count Absolute 0.04 0 - 0.20 K/UL [facility] Basophil Count Specimen Blood Performing Organization Address City/[facility] Ph one Number MAIN LAB [address] [place] [address] * POC GLUCOSE (12/30/2019 10:22 PM CDT) [facility] Glucose, POC 89 70 - 100 MG/DL MAIN LAB Specimen Performing Organization Address City/[facility] Ph one Number MAIN LAB [address] [place] [address] * BLOOD BANK SAMPLE HOLD (12/30/2019 10:00 PM CDT) [facility] BB Sample hold IN LAB MAIN LAB Specimen Performing Organization Address City/[facility] Ph one Number MAIN LAB [address] [place] [address] * TYPE & CROSSMATCH (12/30/2019 7:18 PM CDT) Units Ordered 0 MAIN LAB Crossmatch 01/02/2020,2359 MAIN LAB Expires Record Check FOUND MAIN LAB ABO/RH(D) A POS MAIN LAB Antibody Screen POS MAIN LAB CONSISTENT WITH HISTORICAL ANTIBODY Specimen Blood Performing Organization Address City/[facility] Ph one Number MAIN LAB [address] [place] [address] * POC GLUCOSE (12/30/2019 5:23 PM CDT) Glucose, POC 184 (H) 70 - 100 MG/DL MAIN LAB Specimen Performing Organization Address City/[facility] Ph one Number MAIN LAB [address] [place] [address] * POC GLUCOSE (12/30/2019 12:13 PM CDT) Glucose, POC 94 70 - 100 MG/DL MAIN LAB Specimen Performing Organization Address City/[facility] Ph one Number MAIN LAB [address] [place] [address] * POC GLUCOSE (12/30/2019 8:52 AM CDT) Glucose, POC 91 70 - 100 MG/DL MAIN LAB Specimen Performing Organization Address City/[facility] Ph one Number MA[facility] LAB [address] [place] [address] * PHOSPHORUS (12/30/2019 3:45 AM CDT) Phosphorus 1.8 (L) 2.0 - 4.5 MG/DL MAIN LAB Specimen Blood Performing Organization Address City/[facility] Ph one Number MAIN LAB [address] [place] [address] * MAGNESIUM (12/30/2019 3:45 AM CDT) Magnesium 2.0 1.6 - 2.6 mg/dL MAIN LAB Specimen Blood Performing Organization Address City/[facility] Ph one Number MAIN LAB [address] [place] [address] * COMPREHENSIVE METABOLIC PANEL (12/30/2019 3:45 AM CDT) Sodium 143 137 - 147 MMOL/L MAIN LAB Potassium 4.2 3.5 - 5.1 MMOL/L [facility] Chloride 119 (H) 98 - 110 MMOL/L [facility] Glucose 73 70 - 100 MG/DL [facility] Blood Urea 10 7 - 25 MG/DL [facility] Nitrogen Creatinine 0.83 0.4 - 1.00 MG/DL [facility] Calcium 8.0 (L) 8.5 - 10.6 MG/DL [facility] Total Protein 6.2 6.0 - 8.0 G/DL [facility] Total Bilirubin 0.2 (L) 0.3 - 1.2 MG/DL [facility] Albumin 2.5 (L) 3.5 - 5.0 G/DL [facility] Alk Phosphatase 74 25 - 110 U/L [facility] AST (SGOT) 8 7 - 40 U/L [facility] CO2 16 (L) 21 - 30 MMOL/L [facility] ALT (SGPT) 10 7 - 56 U/L [facility] Anion Gap 8 3 - 12 [facility]IN [facility] eGFR Non >60 >60 mL/min [facility] Comment: [place] The eGFR is not validated f or use in drug dosing adjustments. Continue to use estimated creatinine clearance per dosing reference text. Please contact the Clinical Pharmacist for questions. eGFR >60 >60 mL/min [facility] [place] Comment: The eGFR is not validated for use in drug dosing adjustments. Continue to use estimated creatinine clearance per dosing reference text. Please contact the Clinical Pharmacist for questions. Specimen Blood Performing Organization Address City/State/Zipcode Ph one Number [facility] [address] [place] [address] * CBC AND DIFF (12/30/2019 3:45 AM CDT) White Blood 12.4 (H) 4.5 - 11.0 K/UL [facility] Cells RBC 2.90 (L) 4.0 - 5.0 M/UL [facility] Hemoglobin 8.1 (L) 12.0 - 15.0 GM/DL [facility] Hematocrit 24.8 (L) 36 - 45 % [facility] MCV 85.3 80 - 100 FL [facility] MCH 27.8 26 - 34 PG [facility]IN [facility] MCHC 32.5 32.0 - 36.0 G/DL [facility] RDW 18.2 (H) 11 - 15 % [facility] Platelet Count 428 (H) 150 - 400 K/UL [facility]IN [facility] MPV 7.7 7 - 11 FL MAIN LAB Neutrophils 77 41 - 77 % MAIN LAB Lymphocytes 16 (L) 24 - 44 % MAIN LAB Monocytes 5 4 - 12 % MAIN LAB Eosinophils 2 0 - 5 % MAIN LAB Basophils 0 0 - 2 % MAIN LAB Absolute 9.51 (H) 1.8 - 7.0 K/UL MAIN LAB Neutrophil Count Absolute Lymph 1.99 1.0 - 4.8 K/UL MAIN LAB Count Absolute 0.60 0 - 0.80 K/UL MAIN LAB Monocyte Count Absolute 0.23 0 - 0.45 K/UL MAIN LAB Eosinophil Count Absolute 0.05 0 - 0.20 K/UL MAIN LAB Basophil Count Specimen Blood Performing Organization Address City/State/Zipcode Ph one Number MAIN LAB [address] [place] [address] * POC GLUCOSE (12/30/2019 3:39 AM CDT) Glucose, POC 78 70 - 100 MG/DL MAIN LAB Specimen Performing Organization Address City/[facility] Ph one Number MAIN LAB [address] [place] [address] * POC GLUCOSE (12/29/2019 11:47 PM CDT) Glucose, POC 82 70 - 100 MG/DL MAIN LAB Specimen Performing Organization Address City/[facility] Ph one Number MAIN LAB [address] [place] [address] * POC GLUCOSE (12/29/2019 9:36 PM CDT) Glucose, POC 80 70 - 100 MG/DL MAIN LAB Specimen Performing Organization Address City/[facility] Ph one Number MAIN LAB [address] [place] [address] * POC GLUCOSE (12/29/2019 5:41 PM CDT) Glucose, POC 101 (H) 70 - 100 MG/DL MAIN LAB Specimen Performing Organization Address City/[facility] Ph one Number MAIN LAB [address] [place] [address] * POC GLUCOSE (12/29/2019 1:11 PM CDT) Glucose, POC 126 (H) 70 - 100 MG/DL MAIN LAB Specimen Performing Organization Address [facility] one Number MAIN LAB [address] [place] [address] * POC GLUCOSE (12/29/2019 8:00 AM CDT) Glucose, POC 142 (H) 70 - 100 MG/DL [facility]IN [facility] Specimen Performing Organization Address [facility] Ph one Number MAIN LAB [address] [place] [address] * VANCOMYCIN 2HR POST DOSE (12/29/2019 2:50 AM CDT) Vancomycin 2HR 49.9 ug/mL MAIN LAB POST Dose Specimen Performing Organization Address [facility] one Number MAIN LAB [address] [place] [address] * PHOSPHORUS (12/29/2019 2:50 AM CDT) Phosphorus 1.9 (L) 2.0 - 4.5 MG/DL [facility] Specimen Blood Performing Organization Address [facility] one Number MAIN LAB [address] [place] [address] * MAGNESIUM (12/29/2019 2:50 AM CDT) Magnesium 1.5 (L) 1.6 - 2.6 mg/dL MAIN LAB Specimen Blood Performing Organization Address [facility] one Number MAIN LAB [address] [place] [address] * COMPREHENSIVE METABOLIC PANEL (12/29/2019 2:50 AM CDT) Sodium 144 137 - 147 MMOL/L [facility] Potassium 3.6 3.5 - 5.1 MMOL/L [facility] Chloride 117 (H) 98 - 110 MMOL/L [facility] Glucose 164 (H) 70 - 100 MG/DL [facility] Blood Urea 9 7 - 25 MG/DL [facility] Nitrogen Creatinine 0.82 0.4 - 1.00 MG/DL [facility] Calcium 7.6 (L) 8.5 - 10.6 MG/DL [facility] Total Protein 5.8 (L) 6.0 - 8.0 G/DL [facility] Total Bilirubin 0.2 (L) 0.3 - 1.2 MG/DL [facility] Albumin 2.3 (L) 3.5 - 5.0 G/DL [facility] Alk Phosphatase 75 25 - 110 U/L [facility] AST (SGOT) 8 7 - 40 U/L [facility] CO2 19 (L) 21 - 30 MMOL/L [facility] ALT (SGPT) 11 7 - 56 U/L [facility] Anion Gap 8 3 - 12 [facility] MAIN [facility] eGFR Non >60 >60 mL/min [facility] Comment: [place] The eGFR is not validated f or use in drug dosing adjustments. Continue to use estimated creatinine clearance per dosing reference text. Please contact the Clinical Pharmacist for questions. eGFR >60 >60 mL/min [facility] [place] Comment: The eGFR is not validated for use in drug dosing adjustments. Continue to use estimated creatinine clearance per dosing reference text. Please contact the Clinical Pharmacist for questions. Specimen Blood Performing Organization Address City/State/Zipcode Ph one Number [facility]IN [facility] [address] [place] [address] * CBC AND DIFF (12/29/2019 2:50 AM CDT) White Blood 12.7 (H) 4.5 - 11.0 K/UL [facility] Cells RBC 2.73 (L) 4.0 - 5.0 M/UL [facility] Hemoglobin 7.6 (L) 12.0 - 15.0 GM/DL [facility] Hematocrit 23.0 (L) 36 - 45 % [facility] MCV 84.2 80 - 100 FL [facility] MCH 27.9 26 - 34 PG [facility] MCHC 33.1 32.0 - 36.0 G/DL [facility] RDW 17.7 (H) 11 - 15 % [facility] Platelet Count 401 (H) 150 - 400 K/UL [facility] MPV 7.4 7 - 11 FL [facility] Neutrophils 79 (H) 41 - 77 % [facility] Lymphocytes 13 (L) 24 - 44 % [facility] Monocytes 5 4 - 12 % [facility] Eosinophils 2 0 - 5 % [facility] Basophils 1 0 - 2 % [facility] Absolute 10.16 (H) 1.8 - 7.0 K/UL [facility] Neutrophil Count Absolute Lymph 1.69 1.0 - 4.8 K/UL [facility] Count Absolute 0.59 0 - 0.80 K/UL MAIN LAB Monocyte Count Absolute 0.22 0 - 0.45 K/UL MAIN LAB Eosinophil Count Absolute 0.06 0 - 0.20 K/UL MAIN LAB Basophil Count Specimen Blood Performing Organization Address [facility] one Number MAIN LAB [address] [place] [address] * VANCOMYCIN TROUGH (12/29/2019 12:30 AM CDT) Vancomycin 17.4 10.0 - 20.0 MCG/ML MAIN LAB Trough Specimen Blood, venous - Blood Performing Organization Address [facility] Ph one Number MAIN LAB [address] [place] [address] * POC GLUCOSE (12/28/2019 10:01 PM CDT) Glucose, POC 170 (H) 70 - 100 MG/DL MAIN LAB Specimen Performing Organization Address [facility] one Number MAIN LAB [address] [place] [address] * POC GLUCOSE (12/28/2019 5:12 PM CDT) Glucose, POC 189 (H) 70 - 100 MG/DL MAIN LAB Specimen Performing Organization Address [facility] one Number MAIN LAB [address] [place] [address] * POC GLUCOSE (12/28/2019 12:25 PM CDT) Glucose, POC 207 (H) 70 - 100 MG/DL MAIN LAB Specimen Performing Organization Address [facility] one Number MAIN LAB [address] [place] [address] * POC GLUCOSE (12/28/2019 7:58 AM CDT) Glucose, POC 164 (H) 70 - 100 MG/DL MAIN LAB Specimen Performing Organization [facility] one Number MAIN LAB [address] [place] [address] * PHOSPHORUS (12/28/2019 5:08 AM CDT) Phosphorus 1.8 (L) 2.0 - 4.5 MG/DL MAIN LAB Specimen Blood Performing Organization [facility] Ph one Number [facility]IN [facility] [address] [place] [address] * MAGNESIUM (12/28/2019 5:08 AM CDT) [facility] Magnesium 1.7 1.6 - 2.6 mg/dL MAIN LAB Specimen Blood Performing Organization Address [facility] one Number [facility]IN [facility] [address] [place] [address] * COMPREHENSIVE METABOLIC PANEL (12/28/2019 5:08 AM CDT) [facility] Sodium 142 137 - 147 MMOL/L [facility]IN [facility] Potassium 3.6 3.5 - 5.1 MMOL/L [facility] Chloride 114 (H) 98 - 110 MMOL/L [facility] Glucose 166 (H) 70 - 100 MG/DL [facility]IN [facility] Blood Urea 9 7 - 25 MG/DL [facility]IN [facility] Nitrogen Creatinine 0.92 0.4 - 1.00 MG/DL [facility] Calcium 7.4 (L) 8.5 - 10.6 MG/DL [facility] Total Protein 5.8 (L) 6.0 - 8.0 G/DL [facility] Total Bilirubin 0.4 0.3 - 1.2 MG/DL [facility]IN [facility] Albumin 2.3 (L) 3.5 - 5.0 G/DL [facility] Alk Phosphatase 80 25 - 110 U/L [facility] MAIN [facility] AST (SGOT) 7 7 - 40 U/L [facility]IN [facility] CO2 20 (L) 21 - 30 MMOL/L [facility] MAIN [facility] ALT (SGPT) 12 7 - 56 U/L [facility] MAIN [facility] Anion Gap 8 3 - 12 K[facility] MAIN LAB eGFR Non >60 >60 mL/min [facility] MAIN [facility] Comment: [place] The eGFR is not validated f or use in drug dosing adjustments. Continue to use estimated creatinine clearance per dosing reference text. Please contact the Clinical Pharmacist for questions. eGFR >60 >60 mL/min [facility]IN [facility] [place] Comment: The eGFR is not validated for use in drug dosing adjustments. Continue to use estimated creatinine clearance per dosing reference text. Please contact the Clinical Pharmacist for questions. Specimen Blood Performing Organization Address City/[facility] Ph one Number MAIN LAB [address] [place] [address] * CBC AND DIFF (12/28/2019 5:08 AM CDT) [facility] White Blood 14.7 (H) 4.5 - 11.0 K/UL [facility] MAIN LAB Cells RBC 2.80 (L) 4.0 - 5.0 M/UL [facility] MAIN [facility] Hemoglobin 7.9 (L) 12.0 - 15.0 GM/DL [facility] MAIN LAB Hematocrit 23.7 (L) 36 - 45 % [facility] MAIN [facility] MCV 84.8 80 - 100 FL [facility] MAIN LAB MCH 28.1 26 - 34 PG [facility] MAIN [facility] MCHC 33.2 32.0 - 36.0 G/DL [facility] MAIN [facility] RDW 17.7 (H) 11 - 15 % [facility] MAIN [facility] Platelet Count 401 (H) 150 - 400 K/UL [facility] MAIN [facility] MPV 7.6 7 - 11 FL [facility] MAIN [facility] Neutrophils 82 (H) 41 - 77 % [facility] Lymphocytes 12 (L) 24 - 44 % [facility] Monocytes 4 4 - 12 % [facility] Eosinophils 1 0 - 5 % [facility] MA[facility] Basophils 1 0 - 2 % [facility] Absolute 12.07 (H) 1.8 - 7.0 K/UL [facility] MAIN [facility] Neutrophil Count Absolute Lymph 1.68 1.0 - 4.8 K/UL [facility] MAIN [facility] Count Absolute 0.63 0 - 0.80 K/UL [facility] MAIN [facility] Monocyte Count Absolute 0.19 0 - 0.45 K/UL [facility] MAIN [facility] Eosinophil Count Absolute 0.09 0 - 0.20 K/UL [facility] MAIN [facility] Basophil Count Specimen Blood Performing Organization Address City/State/Zipcode Ph one Number [facility] MAIN [facility] [address] [place] [address] * CBC (12/28/2019 1:00 AM CDT) Pathologist [facility] White Blood 16.1 (H) 4.5 - 11.0 K/UL [facility] MAIN LAB Cells RBC 2.70 (L) 4.0 - 5.0 M/UL [facility] MAIN [facility] Hemoglobin 7.7 (L) 12.0 - 15.0 GM/DL [facility] MAIN [facility] Hematocrit 22.9 (L) 36 - 45 % [facility] MAIN [facility] MCV 85.0 80 - 100 FL [facility] MAIN LAB MCH 28.6 26 - 34 PG [facility] MAIN [facility] MCHC 33.6 32.0 - 36.0 G/DL [facility] MAIN [facility] RDW 17.7 (H) 11 - 15 % [facility] MAIN [facility] Platelet Count 394 150 - 400 K/UL [facility] MAIN LAB MPV 7.6 7 - 11 FL MAIN LAB Specimen Blood Performing Organization Address [facility] Ph one Number MAIN LAB [address] [place] [address] * TRANSFUSE RBC'S (12/27/2019 11:04 PM CDT) Specimen Blood * TRANSFUSE RBC'S (12/27/2019 11:04 PM CDT) Specimen Blood * POC GLUCOSE (12/27/2019 9:19 PM CDT) Glucose, POC 134 (H) 70 - 100 MG/DL MAIN LAB Specimen Performing Organization Address [facility] Ph one Number MAIN LAB [address] [place] [id number] * PROTIME INR (PT) (12/27/2019 7:00 PM CDT) [facility] INR 1.4 (H) 0.8 - 1.2 MAIN LAB Specimen Performing Organization Address [facility] one Number MAIN LAB [address] [place] [address] * CBC (12/27/2019 7:00 PM CDT) Pathologist [facility] White Blood 14.9 (H) 4.5 - 11.0 K/UL MAIN LAB Cells RBC 2.29 (L) 4.0 - 5.0 M/UL MAIN LAB Hemoglobin 6.4 (L) 12.0 - 15.0 GM/DL MAIN LAB Hematocrit 19.4 (L) 36 - 45 % MAIN LAB MCV 85.0 80 - 100 FL MAIN LAB MCH 28.1 26 - 34 PG MAIN LAB MCHC 33.0 32.0 - 36.0 G/DL MAIN LAB RDW 18.2 (H) 11 - 15 % MAIN LAB Platelet Count 402 (H) 150 - 400 K/UL MAIN LAB MPV 7.7 7 - 11 FL MAIN LAB Specimen Blood Performing Organization Address [facility] one Number MAIN LAB [address] [place] [id number] * C REACTIVE PROTEIN (CRP) (12/27/2019 5:30 PM CDT) [facility] C-Reactive 20.51 (H) <1.0 MG/DL MAIN LAB Protein Specimen Blood Performing Organization Address [facility] one Number MAIN LAB [address] [place] [address] * PREALBUMIN (12/27/2019 5:30 PM CDT) Prealbumin 9.0 (L) 17 - 34 MG/DL MAIN LAB Specimen Blood Performing Organization Address [facility] one Number MAIN LAB [address] [place] [address] * POC GLUCOSE (12/27/2019 5:14 PM CDT) Glucose, POC 178 (H) 70 - 100 MG/DL MAIN LAB Specimen Performing Organization Address [facility] one Number MAIN LAB [address] [place] [address] * BASIC METABOLIC PANEL (12/27/2019 3:50 PM CDT) Sodium 141 137 - 147 MMOL/L [facility] MAIN [facility] Potassium 3.9 3.5 - 5.1 MMOL/L MAIN LAB Chloride 113 (H) 98 - 110 MMOL/L MAIN LAB CO2 20 (L) 21 - 30 MMOL/L [facility] MAIN [facility] Anion Gap 8 3 - 12 MAIN LAB Glucose 180 (H) 70 - 100 MG/DL MAIN LAB Blood Urea 12 7 - 25 MG/DL MAIN LAB Nitrogen Creatinine 0.94 0.4 - 1.00 MG/DL MAIN LAB Calcium 7.3 (L) 8.5 - 10.6 MG/DL MAIN LAB eGFR Non >60 >60 mL/min MAIN LAB Comment: [place] The eGFR is not validated f or use in drug dosing adjustments. Continue to use estimated creatinine clearance per dosing reference text. Please contact the Clinical Pharmacist for questions. eGFR >60 >60 mL/min MAIN LAB [place] Comment: The eGFR is not validated for use in drug dosing adjustments. Continue to use estimated creatinine clearance per dosing reference text. Please contact the Clinical Pharmacist for questions. Specimen Blood Performing Organization Address [facility] one Number MAIN LAB [address] [place] [address] * POC GLUCOSE (12/27/2019 12:25 PM CDT) Glucose, POC 256 (H) 70 - 100 MG/DL K[facility] MAIN LAB Specimen Performing Organization Address [facility] one Number MAIN LAB [address] [place] [address] * POC GLUCOSE (12/27/2019 7:42 AM CDT) [facility] Glucose, POC 257 (H) 70 - 100 MG/DL [facility] MAIN LAB Specimen Performing Organization Address [facility] Ph one Number MAIN LAB [address] [place] [address] * TYPE & CROSSMATCH (12/27/2019 7:16 AM CDT) [facility] Units Ordered 1 MAIN LAB Crossmatch 12/30/2019,2359 MAIN LAB Expires Record Check FOUND MAIN LAB ABO/RH(D) A POS MAIN LAB Antibody Screen POS MAIN LAB CONSISTENT WITH HISTORICAL ANTIBODY Unit Number [id number] MAIN LAB Blood Component RBC,ADSOL,LEUKO REDUCED [facility] MAIN LAB Type Unit Division 0 MAIN LAB Status OF Unit TRANSFUSED MAIN LAB Transfusion OK TO TRANSFUSE MAIN LAB Status Crossmatch COMPATIBLE, GEL MAIN LAB Result Specimen Blood Performing Organization Address [facility] one Number MAIN LAB [address] [place] [address] * CBC AND DIFF (12/27/2019 7:16 AM CDT) [facility] White Blood 15.2 (H) 4.5 - 11.0 K/UL MAIN LAB Cells RBC 2.68 (L) 4.0 - 5.0 M/UL MAIN LAB Hemoglobin 7.6 (L) 12.0 - 15.0 GM/DL MAIN LAB Hematocrit 22.9 (L) 36 - 45 % MAIN LAB MCV 85.2 80 - 100 FL MAIN LAB MCH 28.4 26 - 34 PG MAIN LAB MCHC 33.3 32.0 - 36.0 G/DL MAIN LAB RDW 18.1 (H) 11 - 15 % MAIN LAB Platelet Count 434 (H) 150 - 400 K/UL MAIN LAB MPV 7.7 7 - 11 FL MAIN LAB Neutrophils 83 (H) 41 - 77 % MAIN LAB Lymphocytes 12 (L) 24 - 44 % MAIN LAB Monocytes 4 4 - 12 % MAIN LAB Eosinophils 1 0 - 5 % MAIN LAB Basophils 0 0 - 2 % [facility] MAIN LAB Absolute 12.48 (H) 1.8 - 7.0 K/UL [facility] MAIN LAB Neutrophil Count Absolute Lymph 1.86 1.0 - 4.8 K/UL [facility] MAIN LAB Count Absolute 0.63 0 - 0.80 K/UL [facility] MAIN LAB Monocyte Count Absolute 0.16 0 - 0.45 K/UL [facility] MAIN LAB Eosinophil Count Absolute 0.05 0 - 0.20 K/UL [facility] MAIN LAB Basophil Count Specimen Blood Performing Organization Address [facility] Ph one Number [facility] MAIN LAB [address] [place] [address] * IRON + BINDING CAPACITY + %SAT+ FERRITIN (12/27/2019 5:25 AM CDT) Iron <10 (L) 50 - 160 MCG/DL [facility] MAIN LAB Iron 168 (L) 270 - 380 MCG/DL [facility] MAIN LAB Binding-TIBC Ferritin 145 10 - 200 NG/ML [facility] MAIN LAB Specimen Performing Organization Address [facility] one Number MAIN LAB [address] [place] [address] * PHOSPHORUS (12/27/2019 5:25 AM CDT) Phosphorus 2.1 2.0 - 4.5 MG/DL [facility] MAIN LAB Specimen Blood Performing Organization Address [facility] one Number [facility] MAIN [facility] [address] [place] [address] * MAGNESIUM (12/27/2019 5:25 AM CDT) Magnesium 1.1 (L) 1.6 - 2.6 mg/dL [facility] MAIN [facility] Specimen Blood Performing Organization Address [facility] one Number [facility] MAIN [facility] [address] [place] [address] * COMPREHENSIVE METABOLIC PANEL (12/27/2019 5:25 AM CDT) Sodium 142 137 - 147 MMOL/L [facility] MAIN LAB Potassium 2.8 (L) 3.5 - 5.1 MMOL/L [facility] MAIN LAB Chloride 111 (H) 98 - 110 MMOL/L [facility] MAIN LAB Glucose 250 (H) 70 - 100 MG/DL [facility] MAIN LAB Blood Urea 13 7 - 25 MG/DL [facility] MAIN LAB Nitrogen Creatinine 0.94 0.4 - 1.00 MG/DL [facility] MAIN LAB Calcium 7.3 (L) 8.5 - 10.6 MG/DL [facility] MAIN LAB Total Protein 5.8 (L) 6.0 - 8.0 G/DL [facility] MAIN LAB Total Bilirubin 0.2 (L) 0.3 - 1.2 MG/DL [facility] MAIN LAB Albumin 2.4 (L) 3.5 - 5.0 G/DL [facility] MAIN LAB Alk Phosphatase 87 25 - 110 U/L [facility] MAIN LAB AST (SGOT) 7 7 - 40 U/L [facility] MAIN LAB CO2 21 21 - 30 MMOL/L [facility] MAIN LAB ALT (SGPT) 14 7 - 56 U/L [facility] MAIN LAB Anion Gap 10 3 - 12 K[facility] MAIN LAB eGFR Non >60 >60 mL/min [facility] MAIN LAB Comment: [place] The eGFR is not validated f or use in drug dosing adjustments. Continue to use estimated creatinine clearance per dosing reference text. Please contact the Clinical Pharmacist for questions. eGFR >60 >60 mL/min [facility] [place] Comment: The eGFR is not validated for use in drug dosing adjustments. Continue to use estimated creatinine clearance per dosing reference text. Please contact the Clinical Pharmacist for questions. Specimen Blood Performing Organization Address City/State/Zipcode Ph one Number [facility] [address] [place] [address] * CBC AND DIFF (12/27/2019 5:25 AM CDT) White Blood 15.9 (H) 4.5 - 11.0 K/UL [facility] Cells RBC 1.97 (L) 4.0 - 5.0 M/UL [facility] Hemoglobin 5.6 (LL) 12.0 - 15.0 GM/DL [facility] Comment: CRITICAL VALUE CALLED TO AND READ BACK BY/TIME/TECH CHARLIE CASTELLANOS at 12/27/2019 06:05:24 by [id number] Hematocrit 16.8 (L) 36 - 45 % [facility] MCV 85.6 80 - 100 FL [facility] MCH 28.5 26 - 34 PG [facility] MCHC 33.3 32.0 - 36.0 G/DL [facility] RDW 18.4 (H) 11 - 15 % [facility] Platelet Count 414 (H) 150 - 400 K/UL [facility] MPV 7.7 7 - 11 FL [facility] Neutrophils 82 (H) 41 - 77 % [facility] Lymphocytes 13 (L) 24 - 44 % [facility] Monocytes 4 4 - 12 % [facility] Eosinophils 1 0 - 5 % [facility] Basophils 0 0 - 2 % [facility] Absolute 12.78 (H) 1.8 - 7.0 K/UL [facility] Neutrophil Count Absolute Lymph 2.13 1.0 - 4.8 K/UL [facility] Count Absolute 0.70 0 - 0.80 K/UL [facility] Monocyte Count Absolute 0.18 0 - 0.45 K/UL [facility] Eosinophil Count Absolute 0.06 0 - 0.20 K/UL [facility] Basophil Count Specimen Blood Performing Organization Address [facility] Ph one Number MAIN LAB [address] [place] [address] * PHOSPHORUS (12/27/2019 2:17 AM CDT) Phosphorus 2.1 2.0 - 4.5 MG/DL [facility] Specimen Blood Performing Organization Address [facility] Ph one Number MAIN LAB [address] [place] [address] * MAGNESIUM (12/27/2019 2:17 AM CDT) Magnesium 1.1 (L) 1.6 - 2.6 mg/dL [facility] Specimen Blood Performing Organization Address [facility] one Number MAIN LAB [address] [place] [address] * COMPREHENSIVE METABOLIC PANEL (12/27/2019 2:17 AM CDT) Sodium 144 137 - 147 MMOL/L [facility] Potassium 2.9 (L) 3.5 - 5.1 MMOL/L [facility] Chloride 112 (H) 98 - 110 MMOL/L [facility] Glucose 219 (H) 70 - 100 MG/DL [facility] Blood Urea 14 7 - 25 MG/DL [facility] Nitrogen Creatinine 1.01 (H) 0.4 - 1.00 MG/DL [facility] Calcium 7.3 (L) 8.5 - 10.6 MG/DL [facility] Total Protein 5.9 (L) 6.0 - 8.0 G/DL [facility] Total Bilirubin 0.2 (L) 0.3 - 1.2 MG/DL [facility] Albumin 2.3 (L) 3.5 - 5.0 G/DL [facility] Alk Phosphatase 92 25 - 110 U/L [facility] AST (SGOT) 8 7 - 40 U/L [facility] CO2 21 21 - 30 MMOL/L [facility] ALT (SGPT) 16 7 - 56 U/L [facility] Anion Gap 11 3 - 12 [facility] eGFR Non 58 (L) >60 mL/min [facility] Comment: [place] The eGFR is not validated f or use in drug dosing adjustments. Continue to use estimated creatinine clearance per dosing reference text. Please contact the Clinical Pharmacist for questions. eGFR >60 >60 mL/min [facility] [place] Comment: The eGFR is not validated for use in drug dosing adjustments. Continue to use estimated creatinine clearance per dosing reference text. Please contact the Clinical Pharmacist for questions. Specimen Blood Performing Organization Address City/State/Zipcode Ph one Number [facility] [address] [place] [address] * CBC AND DIFF (12/27/2019 2:17 AM CDT) White Blood 14.5 (H) 4.5 - 11.0 K/UL [facility] Cells RBC 2.42 (L) 4.0 - 5.0 M/UL [facility] Hemoglobin 6.9 (L) 12.0 - 15.0 GM/DL [facility] Hematocrit 20.6 (L) 36 - 45 % [facility] MCV 85.2 80 - 100 FL [facility] MCH 28.6 26 - 34 PG [facility] MCHC 33.6 32.0 - 36.0 G/DL [facility] RDW 18.1 (H) 11 - 15 % [facility] Platelet Count 407 (H) 150 - 400 K/UL [facility] MPV 7.7 7 - 11 FL [facility] Neutrophils 80 (H) 41 - 77 % [facility] Lymphocytes 13 (L) 24 - 44 % [facility] Monocytes 5 4 - 12 % [facility] Eosinophils 2 0 - 5 % [facility] Basophils 0 0 - 2 % [facility] Absolute 11.53 (H) 1.8 - 7.0 K/UL [facility] Neutrophil Count Absolute Lymph 1.93 1.0 - 4.8 K/UL [facility] Count Absolute 0.76 0 - 0.80 K/UL [facility] Monocyte Count Absolute 0.24 0 - 0.45 K/UL [facility] Eosinophil Count Absolute 0.05 0 - 0.20 K/UL MAIN LAB Basophil Count Specimen Blood Performing Organization Address [facility] one Number [place] [facility] [address] [place] [address] * POC GLUCOSE (12/26/2019 9:27 PM CDT) Glucose, POC 289 (H) 70 - 100 MG/DL [facility] Specimen Performing Organization Address [facility] one Number [place] [facility] [address] [place] [address] * POC GLUCOSE (12/26/2019 6:27 PM CDT) Glucose, POC 353 (H) 70 - 100 MG/DL MAIN LAB Specimen Performing Organization Address [facility] one Number MAIN LAB [address] [place] [address] * BASIC METABOLIC PANEL (12/26/2019 5:20 PM CDT) Sodium 139 137 - 147 MMOL/L MAIN LAB Potassium 3.5 3.5 - 5.1 MMOL/L MAIN LAB Chloride 113 (H) 98 - 110 MMOL/L MAIN LAB CO2 16 (L) 21 - 30 MMOL/L [facility] Anion Gap 10 3 - 12 MAIN LAB Glucose 348 (H) 70 - 100 MG/DL MAIN LAB Blood Urea 18 7 - 25 MG/DL MAIN LAB Nitrogen Creatinine 1.18 (H) 0.4 - 1.00 MG/DL MAIN LAB Calcium 7.7 (L) 8.5 - 10.6 MG/DL MAIN LAB eGFR Non 49 (L) >60 mL/min MAIN LAB Comment: [place] The eGFR is not validated f or use in drug dosing adjustments. Continue to use estimated creatinine clearance per dosing reference text. Please contact the Clinical Pharmacist for questions. eGFR 59 (L) >60 mL/min [facility]IN LAB [place] Comment: The eGFR is not validated for use in drug dosing adjustments. Continue to use estimated creatinine clearance per dosing reference text. Please contact the Clinical Pharmacist for questions. Specimen Blood Performing Organization Address [facility] one Number [place] [facility] [address] [place] [address] * POC GLUCOSE (12/26/2019 11:48 AM CDT) Glucose, POC 386 (H) 70 - 100 MG/DL [facility] Specimen Performing Organization Address [facility] Ph one Number MAIN LAB [address] [place] [address] * CULTURE-URINE W/SENSITIVITY (12/26/2019 10:45 AM CDT) Battery Name URINE CULTURE [facility] Specimen URINE [facility] Description Special NONE [facility] Requests Culture NO GROWTH [facility] Report Status FINAL MAIN LAB 12/27/2019 Specimen Urine - Urine Performing Organization Address [facility] Ph one Number MAIN LAB [address] [place] [address] * GRAM STAIN (12/26/2019 10:40 AM CDT) Battery Name GRAM STAIN [facility] Specimen SWAB [facility] Description WOUND COCCYX Special NONE [facility] Requests Gram Stain NO NEUTROPHILS SEEN MAIN LAB MODERATE SQUAMOUS EPITHELIAL CELLS MANY GRAM POSITIVE COCCI Report Status FINAL MAIN LAB 12/26/2019 Specimen Swab Performing Organization Address [facility] one Number MAIN LAB [address] [place] [address] * CULTURE-WOUND/TISSUE/FLUID(AEROBIC ONLY)W/SENSITIVITY (12/26/2019 10:40 AM CDT) Battery Name ROUTINE CULTURE [facility] Specimen SWAB MAIN LAB Description WOUND COCCYX Special NONE [facility] Requests Direct Gram NO NEUTROPHILS SEEN [facility] Stain MODERATE SQUAMOUS EPITHELIAL CELLS MANY GRAM POSITIVE COCCI Culture Heavy growth MAIN LAB METHICILLIN RESISTANT STAPHYLOCOCCUS AUREUS Positive for PBP2A, indicating that isolate is MRSA (A) Report Status FINAL MAIN LAB 12/28/2019 Organism ID Heavy growth MAIN LAB METHICILLIN RESISTANT STAPHYLOCOCCUS AUREUS Positive for PBP2A, indicating that isolate is MRSA Specimen Swab Antibiotic Method Susceptibility Organism Clindamycin SRINIVAS (MCG/ML) INTERPRETATION >2 RESISTANT: Resistant Heavy growth methicillin resistant staphylococcus aureus positive for pbp2a, indicating that isolate is mrsa Erythromycin SRINIVAS (MCG/ML) INTERPRETATION >4 RESISTANT: Resistant Heavy growth methicillin resistant staphylococcus aureus positive for pbp2a, indicating that isolate is mrsa Oxacillin SRINIVAS (MCG/ML) INTERPRETATION >2 RESISTANT: Resistant Heavy growth methicillin resistant staphylococcus aureus positive for pbp2a, indicating that isolate is mrsa Vancomycin SRINIVAS (MCG/ML) INTERPRETATION 1 SUSCEPTIBLE: Susceptible Heavy growth methicillin resistant staphylococcus aureus positive for pbp2a, indicating that isolate is mrsa Tetracycline SRINIVAS (MCG/ML) INTERPRETATION <=0.5 SUSCEPTIBLE: Susceptible Heavy growth methicillin resistant staphylococcus aureus positive for pbp2a, indicating that isolate is mrsa Trimethsulfa SRINIVAS (MCG/ML) INTERPRETATION >4 RESISTANT: Resistant Heavy growth methicillin resistant staphylococcus aureus positive for pbp2a, indicating that isolate is mrsa Gentamicin SRINIVAS (MCG/ML) INTERPRETATION <=2 SUSCEPTIBLE: Susceptible Heavy growth methicillin resistant staphylococcus aureus positive for pbp2a, indicating that isolate is mrsa Rifampin SRINIVAS (MCG/ML) INTERPRETATION <=0.5 SUSCEPTIBLE: Susceptible Heavy growth methicillin resistant staphylococcus aureus positive for pbp2a, indicating that isolate is mrsa Linezolid SRINIVAS (MCG/ML) INTERPRETATION 1 SUSCEPTIBLE: Susceptible Heavy growth methicillin resistant staphylococcus aureus positive for pbp2a, indicating that isolate is mrsa Method SRINIVAS (MCG/ML) INTERPRETATION SRINIVAS (MCG/ML) INTERPRETATION Heavy growth methicillin resistant staphylococcus aureus positive for pbp2a, indicating that isolate is mrsa Performing Organization Address [facility] Ph one Number MAIN LAB [address] [place] [address] * POC GLUCOSE (12/26/2019 7:48 AM CDT) Glucose, POC 343 (H) 70 - 100 MG/DL MAIN LAB Specimen Performing Organization [facility] one Number MAIN LAB [address] [place] [address] * LACTIC ACID(LACTATE) (12/26/2019 4:36 AM CDT) Lactic Acid 1.4 0.5 - 2.0 MMOL/L MAIN LAB Specimen Blood Performing Organization Address [facility] Ph one Number MAIN LAB [address] [place] [address] * CULTURE-BLOOD W/SENSITIVITY (12/26/2019 4:36 AM CDT) Battery Name BLOOD CULTURE MAIN LAB Specimen BLOOD MAIN LAB Description NO SITE INDICATED aerobic bottle only Special NONE MAIN LAB Requests Culture NO GROWTH 5 DAYS MAIN LAB Report Status FINAL MAIN LAB 01/01/2020 Specimen Blood Performing Organization [facility] Ph one Number MAIN LAB [address] [place] [address] * MAGNESIUM (12/26/2019 2:50 AM CDT) Magnesium 1.4 (L) 1.6 - 2.6 mg/dL [facility] Specimen Performing Organization Address [facility] Ph one Number [facility] [address] [place] [address] * CBC AND DIFF (12/26/2019 2:50 AM CDT) White Blood 20.1 (H) 4.5 - 11.0 K/UL [facility] Cells RBC 2.73 (L) 4.0 - 5.0 M/UL [facility] Hemoglobin 7.7 (L) 12.0 - 15.0 GM/DL [facility] Hematocrit 23.9 (L) 36 - 45 % [facility] MCV 87.7 80 - 100 FL [facility] MCH 28.3 26 - 34 PG [facility] MCHC 32.3 32.0 - 36.0 G/DL [facility] RDW 18.4 (H) 11 - 15 % [facility] Platelet Count 507 (H) 150 - 400 K/UL [facility] MPV 8.1 7 - 11 FL [facility] Neutrophils 87 (H) 41 - 77 % [facility] Lymphocytes 7 (L) 24 - 44 % [facility] Monocytes 4 4 - 12 % [facility] Eosinophils 1 0 - 5 % [facility] Basophils 1 0 - 2 % [facility] Absolute 17.65 (H) 1.8 - 7.0 K/UL [facility] Neutrophil Count Absolute Lymph 1.34 1.0 - 4.8 K/UL [facility] Count Absolute 0.76 0 - 0.80 K/UL [facility] Monocyte Count Absolute 0.14 0 - 0.45 K/UL [facility] Eosinophil Count Absolute 0.20 0 - 0.20 K/UL [facility] Basophil Count Specimen Performing Organization Address [facility] Ph one Number [facility] [address] [place] [address] * COMPREHENSIVE METABOLIC PANEL (12/26/2019 2:50 AM CDT) Sodium 142 137 - 147 MMOL/L [facility] Potassium 4.2 3.5 - 5.1 MMOL/L [facility] Chloride 121 (H) 98 - 110 MMOL/L [facility] Glucose 172 (H) 70 - 100 MG/DL [facility] Blood Urea 24 7 - 25 MG/DL [facility] Nitrogen Creatinine 1.22 (H) 0.4 - 1.00 MG/DL [facility] Calcium 8.4 (L) 8.5 - 10.6 MG/DL [facility] Total Protein 6.8 6.0 - 8.0 G/DL [facility] Total Bilirubin 0.2 (L) 0.3 - 1.2 MG/DL [facility] Albumin 2.6 (L) 3.5 - 5.0 G/DL [facility] Alk Phosphatase 116 (H) 25 - 110 U/L [facility] AST (SGOT) 18 7 - 40 U/L [facility] CO2 8 (LL) 21 - 30 MMOL/L [facility] Comment: CRITICAL VALUE CALLED TO AND READ BACK BY/TIME/TECH CHARLIE REINA at 12/26/2019 04:16:58 by [id number] ALT (SGPT) 24 7 - 56 U/L [facility] Anion Gap 13 (H) 3 - 12 MAIN LAB eGFR Non 47 (L) >60 mL/min MAIN LAB Comment: [place] The eGFR is not validated f or use in drug dosing adjustments. Continue to use estimated creatinine clearance per dosing reference text. Please contact the Clinical Pharmacist for questions. eGFR 57 (L) >60 mL/min [facility] [place] Comment: The eGFR is not validated for use in drug dosing adjustments. Continue to use estimated creatinine clearance per dosing reference text. Please contact the Clinical Pharmacist for questions. Specimen Performing Organization Address [facility] Ph one Number MAIN LAB [address] [place] [address] * PREALBUMIN (12/26/2019 2:50 AM CDT) Prealbumin 12.0 (L) 17 - 34 MG/DL MAIN LAB Specimen Blood Performing Organization Address City/[facility]/Zipcode Ph one Number MAIN LAB [address] [place] [address] * LIPASE (12/26/2019 2:50 AM CDT) Lipase 24 11 - 82 U/L MAIN LAB Specimen Blood Performing Organization Address City/[facility]/Zipcode Ph one Number MAIN LAB [address] [place] [address] * AMYLASE (12/26/2019 2:50 AM CDT) Amylase 44 24 - 100 U/L MAIN LAB Specimen Blood Performing Organization Address City/[facility] Ph one Number MAIN LAB [address] [place] [address] * LACTIC ACID (BG - RAPID LACTATE) (12/26/2019 2:50 AM CDT) Lactic Acid,BG 1.5 0.5 - 2.0 MMOL/L MAIN LAB Specimen Blood Performing Organization Address City/[facility]/Zipcode Ph one Number MAIN LAB [address] [place] [address] * CULTURE-BLOOD W/SENSITIVITY (12/26/2019 2:50 AM CDT) Battery Name BLOOD CULTURE MAIN LAB Specimen BLOOD MAIN LAB Description CHEST PORT Special NONE MAIN LAB Requests Culture NO GROWTH 5 DAYS MAIN LAB Report Status FINAL MAIN LAB 01/01/2020 Specimen Blood Performing Organization Address [facility] Ph one Number MAIN LAB [address] [place] [address] * COVID-19 (SARS-COV-2) PCR (12/26/2019 1:30 AM CDT) COVID-19 NASOPHARYNGEAL SWAB [facility] (SARS-CoV-2) PCR Source COVID-19 NOT DETECTED DN-NOT DETECTED [facility] (SARS-CoV-2) Comment: PCR This assay is designed to detect the N and/or RdRp genes of SARS-CoV-2 using nucleic acid amplification. [...] not been validated for screening in asymptomatic patients. This test is authorized for use under the FDA Emergency Use Authorization and performance characteristics have been verified by the [facility]. Fact sheet for providers: https://www.fda.gov/media/4354 56/download Fact sheet for patients: https://www.fda.gov/media/1362 57/download Specimen Nasopharyngeal Swab Performing Organization Address City/State/Zipcode Ph one Number [facility] [address] [place] [address] * CT ABD/PEL EXTERNAL IMAGING (12/25/2019 12:05 AM CDT) Specimen Narrative Performed At This order has been auto finalized and does not contain a result. * GENERAL RAD CHEST EXTERNAL IMAGING (12/25/2019 12:00 AM CDT) Specimen Narrative Performed At This order has been auto finalized and does not contain a result. documented in this encounter Visit Diagnoses Diagnosis Pressure ulcer of sacral region, stage 3 ([facility]) Diagnosis Wound infection Posttraumatic wound infection not elsew here classified Right ischial pressure sore, unstageabl e ([facility]) Abnormal uterine bleeding Unspecified disorder of menstruation an d other abnormal bleeding from female genital tract Thickened endometrium Nonspecific (abnormal) findings on radi ological and other examination of genitourinary organs Acute cystitis without hematuria Acute cystitis Sepsis due to methicillin resistant Sta phylococcus aureus (MRSA), unspecified whether acute organ dysfunction present ([facility]) Diabetes mellitus ([facility]) Type II or unspecified type diabetes me llitus without mention of complication, not stated as uncontrolled Paraplegia ([facility]) Paraplegia UTI (urinary tract infection) Urinary tract infection, site not speci fied Sepsis ([facility]) Unspecified septicemia documented in this encounter Administered Medications Action Date Dose Rate Site Medication Order [facility] Action 01/04/2020 4:17 AM CDT 500 mg acetaminophen (TYLENOL) tablet 500 mg Given 500 mg, Oral, EVERY 4 HOURS PRN, Starting 12/26/19 at 0144, Until 01/04/20 at 1515, Pain non-opioid: may be used alone or in combination with opioi d analgesia, TOTAL ACETAMINOPHEN DOSE NOT TO EXCEED 4GM DAILY, 500 mg Given 01/02/2020 7:58 PM CDT 500 mg Given 01/02/2020 10:46 AM CDT 01/04/2020 9:02 AM CDT 500 mg ascorbic acid (VITAMIN C) tablet 500 mg Given 500 mg, Oral, TWICE DAILY, First dose o n 12/28/19 at 2100, Until Discontinued 500 mg Given 01/03/2020 9:39 PM CDT 500 mg Given 01/03/2020 8:46 AM CDT 01/04/2020 9:03 AM CDT 40 mg atorvastatin (LIPITOR) tablet 40 mg Given 40 mg, Oral, DAILY, First dose on 12/26/19 at 0900, Until Discontinued 40 mg Given 01/03/2020 8:47 AM CDT 40 mg Given 01/02/2020 9:48 AM CDT 01/04/2020 9:05 AM CDT bacitracin topical ointment Given Topical, TWICE DAILY, First dose on 12/27/19 at 2100, Until Discontinued, Apply to right gluteal stage 2 pressure ulcers twice daily., Given 01/03/2020 9:40 PM CDT Given 01/03/2020 1:04 PM CDT 12/28/2019 2:53 AM CDT 2 g 200 mL/hr cefepime (MAXIPIME) 2 g in sodium Given - New chloride 0.9% (NS) 100 mL IVPB (MB+) Bag 2 g, Intravenous, 100 mL, Administer over 30 Minutes, EVERY 12 HOURS, First dose on 12/26/19 at 0215, Until Discontinued 2 g 200 mL/hr Given - New Bag 12/27/2019 2:43 PM CDT 2 g 200 mL/hr Given - New Bag 12/27/2019 2:18 AM CDT 01/04/2020 3:15 AM CDT 2 g 200 mL/hr cefepime (MAXIPIME) 2 g in sodium Given - New chloride 0.9% (NS) 100 mL IVPB (MB+) Bag 2 g, Intravenous, 100 mL, Administer over 30 Minutes, EVERY 8 HOURS, First dose (after last modification) on 12/28/19 at 1100, Until Discontinued 2 g 200 mL/hr Given - New Bag 01/03/2020 6:33 PM CDT 2 g 200 mL/hr Given - New Bag 01/03/2020 11:23 AM CDT 12/26/2019 9:39 PM CDT 150 mL/hr dextrose 5% (D5W) with sodium Given - New bicarbonate 150 mEq 1,150 mL IV infusion Bag 1,150 mL, Intravenous, at 150 mL/hr, CONTINUOUS, Starting 12/26/19 at 0530, Until 12/27/19 at 0615 150 mL/hr Given - New Bag 12/26/2019 2:44 PM CDT 150 mL/hr Given - New Bag 12/26/2019 5:56 AM CDT 12/31/2019 11:04 AM CDT 25 mg diphenhydrAMINE (BENADRYL) injection 25 Given mg 25 mg, Intravenous, ONCE PRN, 1 dose, Starting Renu 12/31/19 at 0954, Until Renu 12/31/19 at 1104, Other..., nausea/vomiting, Third line agent, give if second line agent ineffective., PACU (only) 01/03/2020 9:40 PM CDT 40 mg Abdomina l Tissue enoxaparin (LOVENOX) syringe 40 mg Given 40 mg, Subcutaneous, DAILY, First dose on Sat01/01/20 at 2100, Until Discontinued, For patients undergoing surgery: Consult physician in advance - - enoxaparin is an anticoagulant and may need to be held for 12hr prior to surgery or invasive procedures. NOTE: This is a HIGH ALERT Medication., 40 mg Abdominal Tissue Given 01/02/2020 9:57 PM CDT 40 mg Abdominal Tissue Given 01/01/2020 8:59 PM CDT 01/04/2020 9:03 AM CDT 325 mg ferrous sulfate (FEOSOL) tablet 325 mg Given 325 mg, Oral, DAILY, First dose on 12/26/19 at 0900, Until Discontinued, Each 325mg ferrous sulfate delivers 65m g elemental iron., 325 mg Given 01/03/2020 8:46 AM CDT 325 mg Given 01/02/2020 9:44 AM CDT 12/31/2019 10:43 AM CDT 1 mg haloperidol (HALDOL) injection 1 mg Given 1 mg, Intravenous, ONCE PRN, 1 dose, Starting Renu 12/31/19 at 0954, Until Renu 12/31/19 at 1043, Other..., Nausea and Vomiting, Second line agent, give if first line agent ineffective. DO NOT ADMINISTER if given intraoperatively., PACU (only) 12/26/2019 9:39 PM CDT 5,000 Units Abdomina l Tissue heparin (porcine) PF syringe 5,000 Units Given 5,000 Units, Subcutaneous, EVERY 8 HOURS, First dose on 12/26/19 at 1400, Until Discontinued, NOTE: This is a HIGH ALERT Medication., 5,000 Units Abdomen:RUQ Given 12/26/2019 2:45 PM CDT 01/04/2020 12:14 PM CDT 500 Units HEPARIN, PORCINE (PF) 100 UNIT/ML IV Given SYRG (Cabinet Override) NOW, 1 dose, 01/04/20 at 1215, Create d by cabinet override NOTE: This is a HIG H ALERT Medication., Created by cabinet override, 01/04/2020 9:06 AM CDT 2 Units Arm, Rig ht insulin aspart U-100 (NOVOLOG FLEXPEN) Given injection PEN 0-6 Units 0-6 Units, Subcutaneous, BEFORE MEALS AND 2200, First dose on 12/26/19 at 0700, Until Discontinued, -POC glucose 181-220mg/dL at , , administer 1 unit insulin, at 22, 03* administer 0 units. -POC glucose 221-260mg/dL at , , administer 2 units insulin, at 22, 03* administer 1 unit. -POC glucose 261-300mg/dL at , , administer 3 units insulin, at 22, 03* administer 2 units. -POC glucose 301-350mg/dL at , , administer 4 units insulin, at , 03* administer 3 units. -POC glucos e 351-400mg/dL at , , administer 5 units insulin, at 22, 03* administer 4 units. -POC glucose >400mg/dL at , , administer 6 units insulin, at 22, 03* administer 5 units. *only if ordered 5x's daily For [...] request. DO NOT uncheck "Do not dispense", 3 Units Abdominal Tissue Given 01/03/2020 6:03 PM CDT 1 Units Abdominal Tissue Given 01/03/2020 1:03 PM CDT 01/04/2020 9:07 AM CDT 12 Units Arm, Rig ht insulin aspart U-100 (NOVOLOG FLEXPEN) Given injection PEN 12 Units 12 Units, Subcutaneous, THREE TIMES DAILY WITH MEALS, First dose (after las t modification) on 12/27/19 at 1200, Until Discontinued, - Post Meal Dosing: give scheduled Aspart (Novolog) insulin at the completion of meal based on % eaten. Adjust dose based on % of meal eaten. - >50% of meal eaten, give scheduled dose - 10-50% of meal eaten, give 1/2 of schedule dose (round dose t o the nearest unit) - <10% of meal eaten, hold scheduled dose. NOTE: Rapid actin g insulins should be given with food/meal . Use caution when patient is NPO. NOTE: This is a HIGH ALERT Medication., Dispense pens manually with initial order and then upon request. DO NOT uncheck "Do not dispense", 12 Units Abdominal Tissue Given 01/03/2020 6:04 PM CDT 12 Units Abdominal Tissue Given 01/03/2020 1:03 PM CDT 12/26/2019 6:50 PM CDT 8 Units Abdomen: LUQ insulin aspart U-100 (NOVOLOG FLEXPEN) Given injection PEN 8 Units 8 Units, Subcutaneous, THREE TIMES MARTITA Y WITH MEALS, First dose on 12/26/19 a t 0800, Until Discontinued, - Post Meal Dosing: give scheduled Aspart (Novolog) insulin at the completion of meal based on % eaten. Adjust dose based on % of meal eaten. - >50% of meal eaten, give scheduled dose - 10-50% of meal eaten, give 1/2 of schedule dose (round dose t o the nearest unit) - <10% of meal eaten, hold scheduled dose. NOTE: Rapid actin g insulins should be given with food/meal . Use caution when patient is NPO. NOTE: This is a HIGH ALERT Medication., Dispense pens manually with initial order and then upon request. DO NOT uncheck "Do not dispense", 8 Units Abdomen:RLQ Given 12/26/2019 12:27 PM CDT 8 Units Abdomen:RUQ Given 12/26/2019 10:16 AM CDT 12/30/2019 10:14 PM CDT 10 Units Abdomina l Tissue insulin glargine (LANTUS SOLOSTAR) Given injection PEN 10 Units 10 Units, Subcutaneous, AT BEDTIME DAILY, First dose (after last modification) on Sat12/30/19 at 0030, Until Discontinued, Continue if NPO. DO NOT mix with other insulins -- Do no t mix with other insulins -- NOTE: This i s a HIGH ALERT Medication., Dispense pens manually with initial order and then upon request. DO NOT uncheck "Do not dispense", 10 Units Abdominal Tissue Given 12/30/2019 12:42 AM CDT 01/03/2020 9:40 PM CDT 15 Units Arm, Lef t insulin glargine (LANTUS SOLOSTAR) Given injection PEN 15 Units 15 Units, Subcutaneous, AT BEDTIME DAILY, First dose (after last modification) on Renu 12/31/19 at 2200, Until Discontinued, Continue if NPO. DO NOT mix with other insulins -- Do no t mix with other insulins -- NOTE: This i s a HIGH ALERT Medication., Dispense pens manually with initial order and then upon request. DO NOT uncheck "Do not dispense", 15 Units Abdominal Tissue Given 01/02/2020 9:57 PM CDT 15 Units Abdominal Tissue Given 01/01/2020 9:01 PM CDT 12/27/2019 9:33 AM CDT 20 Units Abdomen: RLQ insulin glargine (LANTUS SOLOSTAR) Given injection PEN 20 Units 20 Units, Subcutaneous, TWICE DAILY, First dose on 12/26/19 at 0245, Unti l Discontinued, Continue if NPO. DO NOT mix with other insulins -- Do not mi x with other insulins -- NOTE: This is a HIGH ALERT Medication., Dispense pens manually with initial order and then upon request. DO NOT uncheck "Do not dispense", 20 Units Abdominal Tissue Given 12/26/2019 9:39 PM CDT 20 Units Abdomen:LUQ Given 12/26/2019 10:00 AM CDT 12/29/2019 9:41 AM CDT 26 Units Abdomina l Tissue insulin glargine (LANTUS SOLOSTAR) Given injection PEN 26 Units 26 Units, Subcutaneous, TWICE DAILY, First dose (after last modification) on 12/27/19 at 2100, Until Discontinued , Continue if NPO. DO NOT mix with other insulins -- Do not mix with other insulins -- NOTE: This is a HIGH ALERT Medication., Dispense pens manually wit h initial order and then upon request. DO NOT uncheck "Do not dispense", 26 Units Abdominal Tissue Given 12/28/2019 9:56 PM CDT 26 Units Abdomen:LLQ Given 12/28/2019 9:14 AM CDT 12/30/2019 9:30 AM CDT 26 Units Abdomina l Tissue insulin glargine (LANTUS SOLOSTAR) Given injection PEN 26 Units 26 Units, Subcutaneous, DAILY, First dose (after last modification) on Sat12/30/19 at 0900, Until Discontinued, Continue if NPO. DO NOT mix with other insulins -- Do not mix with other insulins -- NOTE: This is a HIGH ALERT Medication., Dispense pens manually wit h initial order and then upon request. DO NOT uncheck "Do not dispense", 01/01/2020 3:24 AM CDT 30 mg ketorolac (TORADOL) injection 30 mg Given 30 mg, Intravenous, ONCE, 1 dose, Sat01/01/20 at 0315, Please note: this medication will be automatically discontinued 5 days after ordered per hospital policy. Please obtain a new order if the medication needs to be continued., 12/29/2019 9:51 AM CDT 1,000 mL 20 mL/hr lactated ringers infusion Given - New 1,000 mL, 1,000 mL, Intravenous, at 20 Bag mL/hr, CONTINUOUS, Starting 12/28/19 at 1745, Until 12/29/19 at 1306, Pre-Op 12/31/2019 7:40 AM CDT lactated ringers infusion Given - New 1,000 mL, 1,000 mL, Intravenous, at 20 Bag mL/hr, CONTINUOUS, Starting Renu 12/31/19 at 0545, Until 01/02/20 at 0544, Pre-Op 1,000 mL 20 mL/hr Given - New Bag 12/31/2019 7:19 AM CDT 01/04/2020 9:00 AM CDT 1 capsule lactobacillus rhamnosus GG (CULTURELLE) Given 15 billion cell capsule 1 capsule 1 capsule, Oral, DAILY WITH BREAKFAST, First dose on Sat12/26/19 at 0800, Unti l Discontinued 1 capsule Given 01/03/2020 8:47 AM CDT 1 capsule Given 01/02/2020 10:46 AM CDT 01/04/2020 9:03 AM CDT 2.5 mg lisinopriL (ZESTRIL) tablet 2.5 mg Given 2.5 mg, Oral, DAILY, First dose on 5/30/20 at 0900, Until Discontinued 2.5 mg Given 01/03/2020 8:46 AM CDT 2.5 mg Given 01/02/2020 9:45 AM CDT 01/04/2020 11:18 AM CDT mafenide (SULFAMYLON) topical cream Given Topical, DAILY, First dose on 12/27/19 at 1800, Until Discontinued, Apply to right ischial pressure ulcer daily., Given 01/03/2020 1:05 PM CDT Given 01/02/2020 10:59 AM CDT 12/27/2019 9:29 AM CDT 1 g 100 mL/hr magnesium sulfate 1 g/D5W 100 mL IVPB Given - New 1 g, Intravenous, 100 mL, Administer Bag over 1 Hours, EVERY 1 HOUR FOR 3 DOSES , 3 doses, First dose on 12/27/19 at 0700, Last dose on Sat12/27/19 at 0900, Each 1gm delivers 8.1 mEq Magnesium., 1 g 100 mL/hr Given - New Bag 12/27/2019 8:06 AM CDT 1 g 100 mL/hr Given - New Bag 12/27/2019 6:57 AM CDT 12/29/2019 11:44 AM CDT 1 g 100 mL/hr magnesium sulfate 1 g/D5W 100 mL IVPB Given - New 1 g, Intravenous, 100 mL, Administer Bag over 1 Hours, EVERY 1 HOUR FOR 2 DOSES , 2 doses, First dose on Sat12/29/19 at 1000, Last dose on Sat12/29/19 at 1100, Each 1gm delivers 8.1 mEq Magnesium., 1 g 100 mL/hr Given - New Bag 12/29/2019 9:51 AM CDT 01/02/2020 10:46 AM CDT 1 g 100 mL/hr magnesium sulfate 1 g/D5W 100 mL IVPB Given - New 1 g, Intravenous, 100 mL, Administer Bag over 1 Hours, EVERY 1 HOUR FOR 2 DOSES , 2 doses, First dose on Sat01/02/20 at 0900, Last dose on Sat01/02/20 at 1000, Each 1gm delivers 8.1 mEq Magnesium., 1 g 100 mL/hr Given - New Bag 01/02/2020 9:37 AM CDT 01/03/2020 10:07 AM CDT 1 g 100 mL/hr magnesium sulfate 1 g/D5W 100 mL IVPB Given - New 1 g, Intravenous, 100 mL, Administer Bag over 1 Hours, EVERY 1 HOUR FOR 2 DOSES , 2 doses, First dose on 01/03/20 at 0900, Last dose on 01/03/20 at 1000, Each 1gm delivers 8.1 mEq Magnesium., 1 g 100 mL/hr Given - New Bag 01/03/2020 8:54 AM CDT 12/27/2019 9:34 AM CDT 10 mg medroxyPROGESTERone (proVERA) tablet 10 Given mg 10 mg, Oral, DAILY, First dose on 12/26/19 at 0900, Until Discontinued 10 mg Given 12/26/2019 10:00 AM CDT 01/04/2020 9:02 AM CDT 10 mg medroxyPROGESTERone (proVERA) tablet 10 Given mg 10 mg, Oral, TWICE DAILY, First dose (after last modification) on Sun 0 at 2100, Until Discontinued 10 mg Given 01/03/2020 9:39 PM CDT 10 mg Given 01/03/2020 8:53 AM CDT 12/27/2019 10:33 AM CDT 500 mg metroNIDAZOLE (FLAGYL) 500 mg IVPB 100 Given - New mL Bag 500 mg, Intravenous, EVERY 8 HOURS, First dose on 12/26/19 at 0215, Unti l Discontinued 500 mg Given - New Bag 12/27/2019 3:07 AM CDT 500 mg Given - New Bag 12/26/2019 6:49 PM CDT 01/01/2020 3:15 PM CDT 1 mg morphine injection 1-2 mg Given 1-2 mg, Intravenous, EVERY 6 HOURS PRN , Starting Sat01/01/20 at 1156, Until Sat01/04/20 at 1515, Pain Injectable 1 mg Given 01/01/2020 1:36 PM CDT 01/04/2020 11:47 AM CDT neomycin/polymyxin B 1 mL in sodium Given chloride 0.9% irrigation bottle 500 mL irrigation 500 mL, Irrigation, DAILY, First dose o n 12/26/19 at 0900, Until Discontinued , -- FOR IRRIGATION ONLY --, Given 01/03/2020 1:06 PM CDT Given 01/02/2020 11:24 AM CDT 01/04/2020 12:50 PM CDT 4 mg ondansetron (ZOFRAN) tablet 4 mg Given 4 mg, Oral, EVERY 8 HOURS PRN, Startin g 12/26/19 at 0115, Until 01/04/20 a t 1515, Nausea/Vomiting PO 4 mg Given 01/04/2020 4:17 AM CDT 4 mg Given 12/29/2019 9:50 AM CDT 12/27/2019 1:37 PM CDT 10 mEq 50 mL/hr potassium chloride in water IVPB 10 mEq Given - New 10 mEq, Intravenous, 50 mL, Administer Bag over 60 Minutes, EVERY 1 HOUR FOR 4 DOSES, 4 doses, First dose on Sat12/27/19 at 1000, Last dose on Sat12/27/19 at 1300, NOTE: This is a HIGH ALERT Medication., 10 mEq 50 mL/hr Given - New Bag 12/27/2019 12:37 PM CDT 10 mEq 50 mL/hr Given - New Bag 12/27/2019 11:43 AM CDT 12/29/2019 5:38 PM CDT 10 mEq 50 mL/hr potassium chloride in water IVPB 10 mEq Given - New 10 mEq, Intravenous, 50 mL, Administer Bag over 60 Minutes, EVERY 1 HOUR FOR 4 DOSES, 4 doses, First dose on Sat 0 at 1100, Last dose on Sat12/29/19 at 1400, NOTE: This is a HIGH ALERT Medication., 10 mEq 50 mL/hr Given - New Bag 12/29/2019 3:08 PM CDT 10 mEq 50 mL/hr Given - New Bag 12/29/2019 2:08 PM CDT 12/27/2019 6:57 AM CDT 60 mEq potassium chloride SR (K-DUR) tablet 60 Given mEq 60 mEq, Oral, ONCE, 1 dose, [place] 12/27/19 at 0630, - Tablet may be dispersed in water. Place tab in 30 mL of water for 40-60 seconds. - Gently swirl until fully dispersed. If particles remain after admin, add small amount of water and admin remaining content. - DO NOT CRUSH. Tablet may be split in half. Give with meal or full glass of water, 12/30/2019 3:05 PM CDT 2 tablets potassium phosphate (K-PHOS ORIGINAL) Given dispersable tablet 2 tablet 2 tablet, Oral, ONCE, 1 dose, Sat 0 at 1430, DO NOT SWALLOW TABLET DISSOLVE IN WATER PRIOR TO ADMINISTRATION - The tablets are administered by dissolving two tablets in 6-8 ounces of water. - For best results, soak tablets in water for two to five minutes, or more if necessary, and stir. - If any tablet particles remain undissolved, they may be crushed and stirred vigorously to speed dissolution. Each tablet delivers 114 m g Phosphorus (3.6 mMol) and 3.7 mEq Potassium., 12/31/2019 10:23 AM CDT 6.25 mg promethazine (PHENERGAN) injection 6.25 Given mg 6.25 mg, Intravenous, EVERY 10 MIN PRN, Starting Renu 12/31/19 at 0954, Until Renu 12/31/19 at 1221, Other..., nausea/vomiting, First line agent. Give in freely running IV and dilute in 10mL 0.9% sodium chloride. May repeat to total dose of 25 mg from all routes ordered PRN, if no relief in 15 minutes then notify anesthesia physician. PROTECT FROM LIGHT For IV Administration: a. Admin. each dose slowly over at least 5 min. Use lowest effective dose. b. Admin. through a large-bore vein (central venous site preferably). AVOID HAND OR WRIST VEINS UNLESS NO OTHER ALTERNATIVES ARE AVAILABLE. Do NOT administer intra-arterially. c. Check patency of site before admin. Inspect site around catheter tip and extremity for swelling , blanching, bleb formation, stretched an d firm skin or coolness. d. Remain in continual contact with the patient during admin. and for 5 minutes following to observe for adverse reactions and monitor injection site. e. Ask patient to report any burning o r discomfort during infusion. If extravasation is suspected, stop infusion immediately, implement Extravasation Management Protocol, and notify physician., PACU (only) 01/04/2020 9:04 AM CDT 650 mg sodium bicarbonate tablet 650 mg Given 650 mg, Oral, TWICE DAILY, First dose o n 12/29/19 at 1415, Until Discontinued, Each 325mg tab delivers 3.8 mEq Na (650mg tab = 7.6 mEq Na), 650 mg Given 01/03/2020 9:39 PM CDT 650 mg Given 01/03/2020 8:53 AM CDT 12/28/2019 5:13 PM CDT 100 mL/hr sodium chloride 0.9 % infusion Given - New 1,000 mL, Intravenous, at 100 mL/hr, Bag CONTINUOUS, Starting 12/27/19 at 0630, Until Tu12/29/19 at 0629 100 mL/hr Given - New Bag 12/28/2019 8:08 AM CDT 100 mL/hr Given - New Bag 12/27/2019 6:57 AM CDT 01/03/2020 1:06 PM CDT sodium hypochlorite (DAKIN'S 1/2 Given STRENGTH) 0.25 % topical solution Irrigation, NEEDED, Starting Renu 12/31/19 at 1414, Until 01/04/20 at 1515, Topical for Dressing Changes, Apply per wound care instructions, Given 12/31/2019 9:55 PM CDT 12/29/2019 1:02 AM CDT 1,000 mg 250 mL/hr vancomycin (VANCOCIN) 1,000 mg in Given - New dextrose 5% (D5W) 250 mL IVPB ([id number]) Bag 1,000 mg (rounded from 1,068 mg = 15 mg/kg 71.2 kg), Intravenous, 250 mL, Administer over 60 Minutes, EVERY 24 HOURS, First dose (after last modification) on 12/26/19 at 0230, Until Discontinued, Note Pharmacokineti c Monitoring: Please record infusion start time (Action= Given) and stop jessica e (Action= Completed) of dose when blood levels are drawn., 1,000 mg 250 mL/hr Given - New Bag 12/28/2019 1:04 AM CDT 1,000 mg 250 mL/hr Given - New Bag 12/27/2019 3:08 AM CDT 01/04/2020 1:29 AM CDT 750 mg 165 mL/hr vancomycin (VANCOCIN) 750 mg in sodium Given - New chloride 0.9% (NS) IVPB Bag 750 mg, Intravenous, 165 mL, Administer over 60 Minutes, EVERY 24 HOURS, First dose on Sat12/30/19 at 0100, Until Discontinued, Note Pharmacokinetic Monitoring: Please record infusion start time (Action= Given) and stop jessica e (Action= Completed) of dose when blood levels are drawn., 750 mg 165 mL/hr Given - New Bag 01/03/2020 1:57 AM CDT 750 mg 165 mL/hr Given - New Bag 01/02/2020 1:22 AM CDT 01/04/2020 9:02 AM CDT 1 tablet vitamins, multi w/minerals tablet 1 Given tablet 1 tablet, Oral, DAILY, First dose on Mo n 12/28/19 at 1600, Until Discontinued 1 tablet Given 01/03/2020 8:46 AM CDT 1 tablet Given 01/02/2020 9:45 AM CDT 01/04/2020 9:04 AM CDT 440 mg zinc sulfate capsule 440 mg Given 440 mg, Oral, DAILY, First dose on Sat12/28/19 at 1600, Until Discontinued, Eac h cap delivers 50mg elemental zinc., 440 mg Given 01/03/2020 8:53 AM CDT 440 mg Given 01/02/2020 9:44 AM CDT documented in this encounter Additional Health Concerns Resolved Time Infection Noted Time 12/27/2019 8:31 PM CDT MRSA 11/21/2015 3:59 PM CDT 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
--- OUTSIDE RECORDS SUMMARY | 2020-02-11 00:56 | XMS REPORT | Encounter Summary ---
Author Author [facility] Organization [facility] Address Unknown Phone Unavailable Care Team Providers Care Rim Roller Operator Name Role Phone Pb Ibrahim MD [...] Details Care Team Description Date Type Department Janet Gage MD [address] [place] [address] 12/27/2019 Prep for [facility] [address] [facility] [address] [place] [address] Social History Date Tobacco Use Types Packs/Day Years Used Never Smoker Smokeless Tobacco: Never Used Drinks/Week oz/Week Comments Alcohol Use No Sex Assigned at Date Recorded Female Industry [...] Date Type Specialty Cody Tirado MD [address] [place], [place] [id number] Pressure ulcer of sacral region, stage 3 (HCC) 02/15/2020 Hospital Encounter Kourtney Harvey APRN [address] [place] [address] [phone] 02/15/2020 Anesthesia Event Cody Tirado MD [address] [place] [address] [phone] EXCISION SACRAL PRESSURE ULCER - PREPARA TION [...]
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
--- OUTSIDE RECORDS SUMMARY | 2020-02-11 00:56 | XMS REPORT | Encounter Summary ---
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 194 (H) 70 - 100 MG/DL MAIN LAB Specimen Performing Organization Address [facility] Ph one Number MAIN LAB [address] [place] [address] * POC GLUCOSE (01/03/2020 7:53 AM CDT) Glucose, POC 173 (H) 70 - 100 MG/DL MAIN LAB Specimen Performing Organization Address [facility] Ph one Number MAIN LAB [address] [place] [address] * PHOSPHORUS (01/03/2020 4:00 AM CDT) Phosphorus 2.4 2.0 - 4.5 MG/DL MAIN LAB Specimen Blood Performing Organization Address [facility] Ph one Number MAIN LAB [address] [place] [address] * MAGNESIUM (01/03/2020 4:00 AM CDT) Magnesium 1.6 1.6 - 2.6 mg/dL MAIN LAB Specimen Blood Performing Organization Address [facility] Ph one Number MAIN LAB [address] [place] [address] * COMPREHENSIVE METABOLIC PANEL (01/03/2020 4:00 AM CDT) Sodium 140 137 - 147 MMOL/L MAIN LAB Potassium 4.7 3.5 - 5.1 [...] (L) >60 mL/min [facility] MAIN LAB Comment: [place] The eGFR is not validated f or use in drug dosing adjustments. Continue to use estimated creatinine clearance per dosing reference text. Please contact the Clinical Pharmacist for questions. eGFR >60 >60 mL/min [facility] MAIN [facility] [place] Comment: The eGFR is not validated for use in drug dosing adjustments. Continue to use estimated creatinine clearance per dosing reference text. Please contact the Clinical Pharmacist for questions. Specimen Blood Performing Organization Address City/State/Zipcode Ph one Number [facility] MAIN LAB [address] [place] [address] * CBC AND DIFF (01/03/2020 4:00 AM [...] LAB MPV 8.2 7 - 11 FL MAIN LAB Neutrophils 71 41 - 77 % MAIN LAB Lymphocytes 21 (L) 24 - 44 % MAIN LAB Monocytes 5 4 - 12 % MAIN LAB Eosinophils 2 0 - 5 % MAIN LAB Basophils 1 0 - 2 % MAIN LAB Absolute 10.95 (H) 1.8 - 7.0 K/UL MAIN LAB Neutrophil Count Absolute Lymph 3.31 1.0 - 4.8 K/UL MAIN LAB Count Absolute 0.83 (H) 0 - 0.80 K/UL MAIN LAB Monocyte Count Absolute 0.26 0 - 0.45 K/UL MAIN LAB Eosinophil Count Absolute 0.09 0 - 0.20 K/UL MAIN LAB Basophil Count Specimen Blood Performing Organization Address City/[facility] Ph one Number MAIN LAB [address] [place] [address] * POC GLUCOSE (01/02/2020 10:03 PM CDT) Glucose, POC 162 (H) 70 - 100 MG/DL MAIN LAB Specimen Performing Organization Address City/[facility] Ph one Number MAIN LAB [address] [place] [address] * POC GLUCOSE (01/02/2020 6:04 PM CDT) Glucose, POC 152 (H) 70 - 100 MG/DL MAIN LAB Specimen Performing Organization Address City/[facility] Ph one Number MAIN LAB [address] [place] [address] * POC GLUCOSE (01/02/2020 12:35 PM CDT) Glucose, POC 148 (H) 70 - 100 MG/DL MAIN LAB Specimen Performing Organization Address City/[facility] Ph one Number MAIN LAB [address] [place] [address] * POC GLUCOSE (01/02/2020 7:31 AM CDT) Glucose, POC 118 (H) 70 - 100 MG/DL MAIN LAB Specimen Performing Organization Address City/[facility] Ph one Number MAIN LAB [address] [place] [address] * PHOSPHORUS (01/02/2020 4:00 AM CDT) Phosphorus 2.4 2.0 - 4.5 MG/DL [facility] MAIN LAB Specimen Blood Performing Organization Address [facility] one Number [facility] MAIN LAB [address] [place] [address] * MAGNESIUM (01/02/2020 4:00 AM CDT) Magnesium 1.5 (L) 1.6 - 2.6 mg/dL [facility] MAIN LAB Specimen Blood Performing Organization Address [facility] one Number [facility] MAIN LAB [address] [place] [address] * COMPREHENSIVE METABOLIC PANEL (01/02/2020 4:00 AM [...] (L) >60 mL/min [facility] MAIN LAB Comment: [place] The eGFR is not validated f or use in drug dosing adjustments. Continue to use estimated creatinine clearance per dosing reference text. Please contact the Clinical Pharmacist for questions. eGFR >60 >60 mL/min [facility] MAIN [facility] [place] Comment: The eGFR is not validated for use in drug dosing adjustments. Continue to use estimated creatinine clearance per dosing reference text. Please contact the Clinical Pharmacist for questions. Specimen Blood Performing Organization Address [facility] one Number [facility] MAIN LAB [address] [place] [address] * CBC AND DIFF (01/02/2020 4:00 AM [...] - 2 % [facility] MAIN LAB Absolute 10.71 (H) 1.8 - 7.0 K/UL [facility] MAIN LAB Neutrophil Count Absolute Lymph 4.12 1.0 - 4.8 K/UL [facility] MAIN LAB Count Absolute 0.82 (H) 0 - 0.80 K/UL [facility] MAIN LAB Monocyte Count Absolute 0.28 0 - 0.45 K/UL [facility] MAIN LAB Eosinophil Count Absolute 0.09 0 - 0.20 K/UL [facility] MAIN LAB Basophil Count Specimen Blood Performing Organization Address [facility] Ph one Number MAIN LAB [address] [place] [address] * VANCOMYCIN 2HR POST DOSE (01/02/2020 4:00 AM CDT) Vancomycin 2HR 32.1 ug/mL [facility] MAIN LAB POST Dose Specimen Blood Performing Organization Address [facility] Ph one Number MAIN LAB [address] [place] [address] * VANCOMYCIN TROUGH (01/02/2020 1:10 AM CDT) Vancomycin 12.8 10.0 - 20.0 MCG/ML [facility] MAIN LAB Trough Specimen Blood, venous - Blood Performing Organization Address City/State/Zipcode Ph one Number MAIN LAB [address] [place] [address] * POC GLUCOSE (01/01/2020 11:11 PM CDT) Glucose, POC 181 (H) 70 - 100 MG/DL [facility] MAIN LAB Specimen Performing Organization Address City/[facility]/[place] Ph one Number MAIN LAB [address] [place] [address] * POC GLUCOSE (01/01/2020 6:54 PM CDT) Glucose, POC 238 (H) 70 - 100 MG/DL MAIN LAB Specimen Performing Organization Address City/[facility] Ph one Number MAIN LAB [address] [place] [address] * POC GLUCOSE (01/01/2020 1:24 PM CDT) Glucose, POC 117 (H) 70 - 100 MG/DL MAIN LAB Specimen Performing Organization Address [facility] Ph one Number MAIN LAB [address] [place] [address] * POC GLUCOSE (01/01/2020 7:46 AM CDT) Glucose, POC 153 (H) 70 - 100 MG/DL MAIN LAB Specimen Performing Organization Address [facility] Ph one Number MAIN LAB [address] [place] [address] * PHOSPHORUS (01/01/2020 5:00 AM CDT) Phosphorus 2.1 2.0 - 4.5 MG/DL MAIN LAB Specimen Blood Performing Organization Address [facility] Ph one Number MAIN LAB [address] [place] [address] * MAGNESIUM (01/01/2020 5:00 AM CDT) Magnesium 1.6 1.6 - 2.6 mg/dL MAIN LAB Specimen Blood Performing Organization Address [facility] Ph one Number MAIN LAB [address] [place] [address] * COMPREHENSIVE METABOLIC PANEL (01/01/2020 5:00 AM [...] (L) >60 mL/min [facility] MAIN LAB Comment: [place] The eGFR is not validated f or use in drug dosing adjustments. Continue to use estimated creatinine clearance per dosing reference text. Please contact the Clinical Pharmacist for questions. eGFR >60 >60 mL/min [facility] MAIN [facility] [place] Comment: The eGFR is not validated for use in drug dosing adjustments. Continue to use estimated creatinine clearance per dosing reference text. Please contact the Clinical Pharmacist for questions. Specimen Blood Performing Organization Address City/State/Zipcode Ph one Number [facility] MAIN LAB [address] [place] [address] * CBC AND DIFF (01/01/2020 5:00 AM [...] 7.6 7 - 11 FL MAIN LAB Neutrophils 80 (H) 41 - 77 % MAIN LAB Lymphocytes 15 (L) 24 - 44 % MAIN LAB Monocytes 4 4 - 12 % MAIN LAB Eosinophils 0 0 - 5 % MAIN LAB Basophils 1 0 - 2 % MAIN LAB Absolute 14.02 (H) 1.8 - 7.0 K/UL [facility] MAIN LAB Neutrophil Count Absolute Lymph 2.63 1.0 - 4.8 K/UL MAIN LAB Count Absolute 0.78 0 - 0.80 K/UL MAIN LAB Monocyte Count Absolute 0.05 0 - 0.45 K/UL MAIN LAB Eosinophil Count Absolute 0.11 0 - 0.20 K/UL MAIN LAB Basophil Count Specimen Blood Performing Organization Address City/State/Zipcode Ph one Number MAIN LAB [address] [place] [address] * POC GLUCOSE (12/31/2019 9:39 PM CDT) Glucose, POC 248 (H) 70 - 100 MG/DL MAIN LAB Specimen Performing Organization Address City/[facility]/[employer] Ph one Number MAIN LAB [address] [place] [address] * POC GLUCOSE (12/31/2019 6:09 PM CDT) Glucose, POC 287 (H) 70 - 100 MG/DL MAIN LAB Specimen Performing Organization Address City/[facility]/[employer] Ph one Number MAIN LAB [address] [place] [address] * POC GLUCOSE (12/31/2019 12:50 PM CDT) Glucose, POC 200 (H) 70 - 100 MG/DL MAIN LAB Specimen Performing Organization Address City/[facility]/[employer] Ph one Number MAIN LAB [address] [place] [address] * POC GLUCOSE (12/31/2019 10:33 AM CDT) Glucose, POC 163 (H) 70 - 100 MG/DL MAIN LAB Specimen Performing Organization Address City/[facility]/[employer] Ph one Number MAIN LAB [address] [place] [address] * SURGICAL PATHOLOGY (12/31/2019 9:58 AM CDT) PATHOLOGY [facility] [place] [facility] [email or web address] Department of Pathology and Laboratory Medicine [address] [place] [address] Surgical Pathology Office: [phone] SURGICAL PATHOLOGY REPORT NAME: TAM LOZANO SURG PATH #: [id number] MR #: [id number] SPECIMEN CLASS: SR BILLING #: [id number] ALT ID #: LOCATION: 8 DATE OF PROCEDURE: 12/31/2019 AGE: 49 SEX: [...] filtered and entirely submitted in cassettes A1-A3. (wlm) wlm/12/31/2019 Specimen Tissue - Endometrial Performing Organization Address [facility] one Number MAIN LAB [address] [place] [address] * CULTURE-FUNGAL,OTHER (12/31/2019 8:33 AM CDT) Battery Name FUNGUS CULTURE [facility] MAIN LAB Specimen TISSUE MAIN LAB Description SACRUM PRESSURE ULCER Special NONE MAIN LAB Requests Culture One colony MAIN LAB DACIA PARAPSILOSIS One colony DACIA ALBICANS Susceptibility intended for research use only. (A) Report Status FINAL MAIN LAB 01/06/2020 Organism ID One colony MAIN LAB DACIA PARAPSILOSIS Organism ID One colony MAIN LAB DACIA ALBICANS Specimen Tissue - Tissue [...] One colony dacia albicans Performing Organization Address [facility] one Number MAIN LAB [address] [place] [address] * GRAM STAIN (12/31/2019 8:33 AM CDT) Battery Name GRAM STAIN MAIN LAB Specimen TISSUE MAIN LAB Description SACRUM PRESSURE ULCER Special NONE MAIN LAB Requests Gram Stain MANY MAIN LAB NEUTROPHILS MODERATE GRAM POSITIVE COCCI Report Status FINAL MAIN LAB 12/31/2019 Specimen Tissue - Tissue Performing Organization Address City/[facility] Ph one Number MAIN LAB [address] [place] [address] * CULTURE-WOUND/TISSUE/FLUID(AEROBIC ONLY)W/SENSITIVITY (12/31/2019 8:33 AM CDT) Battery Name ROUTINE CULTURE [facility] MAIN LAB Specimen TISSUE MAIN LAB Description SACRUM PRESSURE ULCER Special NONE MAIN LAB Requests Direct Gram MANY MAIN LAB Stain NEUTROPHILS MODERATE GRAM POSITIVE [...] that isolate is mrsa Performing Organization Address City/[facility] Ph one Number MAIN LAB [address] [place] [address] * CULTURE-ANAEROBIC (12/31/2019 8:33 AM CDT) Battery Name ANAEROBE CULTURE MAIN LAB Specimen TISSUE MAIN LAB Description SACRUM PRESSURE ULCER Special NONE MAIN LAB Requests Culture NO ANAEROBES ISOLATED MAIN LAB Report Status FINAL MAIN LAB 01/05/2020 Specimen Tissue - Tissue Performing Organization Address City/[facility] Ph one Number MAIN LAB [address] [place] [address] * POC GLUCOSE (12/31/2019 7:06 AM CDT) Glucose, POC 97 70 - 100 MG/DL [facility] MAIN LAB Specimen Performing Organization Address [facility] Ph one Number MAIN LAB [address] [place] [address] * TEST-URINE (12/31/2019 6:11 AM CDT) Urine-HCG NEG [facility] MAIN LAB Samples with Specific [place] Pool <1.010 may result in a false negative test Specific 1.014 MAIN LAB [place] Pool Specimen Urine - Urine Performing Organization Address [facility] Ph one Number MAIN LAB [address] [place] [address] * PHOSPHORUS (12/31/2019 5:00 AM CDT) Phosphorus 2.3 2.0 - 4.5 MG/DL MAIN LAB Specimen Blood Performing Organization Address [facility] Ph one Number MAIN LAB [address] [place] [address] * MAGNESIUM (12/31/2019 5:00 AM CDT) Magnesium 1.6 1.6 - 2.6 mg/dL MAIN LAB Specimen Blood Performing Organization Address [facility] Ph one Number MAIN LAB [address] [place] [id number] * COMPREHENSIVE METABOLIC PANEL (12/31/2019 5:00 AM CDT) Sodium 142 137 - 147 MMOL/L MAIN LAB Potassium 4.1 3.5 - 5.1 MMOL/L MAIN LAB Chloride 118 (H) 98 - [...] >60 >60 mL/min [facility] MAIN LAB Comment: [place] The eGFR is not validated f or use in drug dosing adjustments. Continue to use estimated creatinine clearance per dosing reference text. Please contact the Clinical Pharmacist for questions. eGFR >60 >60 mL/min [facility] MAIN LAB [place] Comment: The eGFR is not validated for use in drug dosing adjustments. Continue to use estimated creatinine clearance per dosing reference text. Please contact the Clinical Pharmacist for questions. Specimen Blood Performing Organization Address City/State/Zipcode Ph one Number [facility] MAIN LAB [address] [place] [address] * CBC AND DIFF (12/31/2019 5:00 AM CDT) White Blood 13.2 (H) 4.5 - 11.0 K/UL [facility] MAIN LAB Cells RBC 2.99 (L) 4.0 - 5.0 M/UL [facility] MAIN LAB Hemoglobin 8.4 (L) 12.0 - 15.0 GM/DL [facility] MAIN LAB Hematocrit 25.8 (L) 36 - 45 % [facility] MAIN LAB MCV 86.5 80 - 100 FL KU MAIN LAB MCH 28.1 26 - 34 PG [facility] MAIN LAB MCHC 32.5 32.0 - 36.0 G/DL [facility] MAIN LAB RDW 18.5 (H) 11 - 15 % [facility] MAIN LAB Platelet Count 432 (H) 150 - 400 K/UL [facility] MAIN LAB MPV 7.4 7 - 11 FL [facility] MAIN LAB Neutrophils 73 41 - 77 % [facility] MAIN LAB Lymphocytes 19 (L) 24 - 44 % [facility] MAIN LAB Monocytes 6 4 - 12 % [facility] MAIN LAB Eosinophils 2 0 - 5 % [facility] MAIN LAB Basophils 0 0 - 2 % [facility] MAIN LAB Absolute 9.63 (H) 1.8 - 7.0 K/UL [facility] MAIN LAB Neutrophil Count Absolute Lymph 2.50 1.0 - 4.8 K/UL [facility] MAIN LAB Count Absolute 0.77 0 - 0.80 K/UL [facility] MAIN LAB Monocyte Count Absolute 0.25 0 - 0.45 K/UL [facility] MAIN LAB Eosinophil Count Absolute 0.04 0 - 0.20 K/UL MAIN LAB Basophil Count Specimen Blood Performing Organization Address City/State/Zipcode Ph one Number MAIN LAB [address] [place] [address] * POC GLUCOSE (12/30/2019 10:22 PM CDT) Glucose, POC 89 70 - 100 MG/DL MAIN LAB Specimen Performing Organization Address City/State/Zipcode Ph one Number MAIN LAB [address] [place] [address] * BLOOD BANK SAMPLE HOLD (12/30/2019 10:00 PM CDT) BB Sample hold IN LAB MAIN LAB Specimen Performing Organization Address City/[facility]/[employer] Ph one Number MAIN LAB [address] [place] [id number] * TYPE & CROSSMATCH (12/30/2019 7:18 PM CDT) Units Ordered 0 MAIN LAB Crossmatch 01/02/2020,2359 MAIN LAB Expires Record Check FOUND MAIN LAB ABO/RH(D) A POS MAIN LAB Antibody Screen POS MAIN LAB CONSISTENT WITH HISTORICAL ANTIBODY Specimen Blood Performing Organization Address City/[facility] Ph one Number MAIN LAB [address] [place] [address] * POC GLUCOSE (12/30/2019 5:23 PM CDT) Glucose, POC 184 (H) 70 - 100 MG/DL MAIN LAB Specimen Performing Organization Address City/[facility]/Zipcode Ph one Number MAIN LAB [address] [place] [address] * POC GLUCOSE (12/30/2019 12:13 PM CDT) Glucose, POC 94 70 - 100 MG/DL MAIN LAB Specimen Performing Organization Address City/State/Zipcode Ph one Number MAIN LAB [address] [place] [address] * POC GLUCOSE (12/30/2019 8:52 AM CDT) Glucose, POC 91 70 - 100 MG/DL MAIN LAB Specimen Performing Organization Address City/State/Zipcode Ph one Number [facility] MAIN LAB [address] [place] [address] * PHOSPHORUS (12/30/2019 3:45 AM CDT) Phosphorus 1.8 (L) 2.0 - 4.5 MG/DL [facility] MAIN LAB Specimen Blood Performing Organization Address [facility] one Number [facility]U MAIN LAB [address] [place] [address] * MAGNESIUM (12/30/2019 3:45 AM CDT) Magnesium 2.0 1.6 - 2.6 mg/dL K[facility] MAIN LAB Specimen Blood Performing Organization Address [facility] one Number [facility] MAIN LAB [address] [place] [address] * COMPREHENSIVE METABOLIC PANEL (12/30/2019 3:45 AM [...] >60 >60 mL/min [facility] MAIN LAB Comment: [place] The eGFR is not validated f or use in drug dosing adjustments. Continue to use estimated creatinine clearance per dosing reference text. Please contact the Clinical Pharmacist for questions. eGFR >60 >60 mL/min [facility] MAIN LAB [place] Comment: The eGFR is not validated for use in drug dosing adjustments. Continue to use estimated creatinine clearance per dosing reference text. Please contact the Clinical Pharmacist for questions. Specimen Blood Performing Organization Address City/[facility] Ph one Number [facility] MAIN LAB [address] [place] [address] * CBC AND DIFF (12/30/2019 3:45 AM [...] - 11 FL KU MAIN LAB Neutrophils 77 41 - 77 % [facility] MAIN LAB Lymphocytes 16 (L) 24 - 44 % [facility] MAIN LAB Monocytes 5 4 - 12 % [facility] MAIN LAB Eosinophils 2 0 - 5 % [facility] MAIN LAB Basophils 0 0 - 2 % [facility] MAIN LAB Absolute 9.51 (H) 1.8 - 7.0 K/UL [facility] MAIN LAB Neutrophil Count Absolute Lymph 1.99 1.0 - 4.8 K/UL [facility] MAIN LAB Count Absolute 0.60 0 - 0.80 K/UL KU MAIN LAB Monocyte Count Absolute 0.23 0 - 0.45 K/UL [facility] MAIN LAB Eosinophil Count Absolute 0.05 0 - 0.20 K/UL [facility] MAIN LAB Basophil Count Specimen Blood Performing Organization Address City/[facility] Ph one Number [facility]U MAIN LAB [address] [place] [address] * POC GLUCOSE (12/30/2019 3:39 AM CDT) Glucose, POC 78 70 - 100 MG/DL K[facility] MAIN LAB Specimen Performing Organization Address City/[facility] Ph one Number [facility] MAIN LAB [address] [place] [address] * POC GLUCOSE (12/29/2019 11:47 PM CDT) Glucose, POC 82 70 - 100 MG/DL [facility] MAIN LAB Specimen Performing Organization Address City/[facility]/[employer] Ph one Number MAIN LAB [address] [place] [address] * POC GLUCOSE (12/29/2019 9:36 PM CDT) Glucose, POC 80 70 - 100 MG/DL MAIN LAB Specimen Performing Organization Address City/[facility] Ph one Number MAIN LAB [address] [place] [address] * POC GLUCOSE (12/29/2019 5:41 PM CDT) Glucose, POC 101 (H) 70 - 100 MG/DL MAIN LAB Specimen Performing Organization Address City/[facility]/[employer] Ph one Number MAIN LAB [address] [place] [address] * POC GLUCOSE (12/29/2019 1:11 PM CDT) Glucose, POC 126 (H) 70 - 100 MG/DL MAIN LAB Specimen Performing Organization Address [facility] Ph one Number MAIN LAB [address] [place] [address] * POC GLUCOSE (12/29/2019 8:00 AM CDT) Glucose, POC 142 (H) 70 - 100 MG/DL MAIN LAB Specimen Performing Organization Address [facility] Ph one Number MAIN LAB [address] [place] [address] * VANCOMYCIN 2HR POST DOSE (12/29/2019 2:50 AM CDT) Vancomycin 2HR 49.9 ug/mL MAIN LAB POST Dose Specimen Performing Organization Address [facility] Ph one Number MAIN LAB [address] [place] [address] * PHOSPHORUS (12/29/2019 2:50 AM CDT) Phosphorus 1.9 (L) 2.0 - 4.5 MG/DL MAIN LAB Specimen Blood Performing Organization Address [facility] Ph one Number MAIN LAB [address] [place] [address] * MAGNESIUM (12/29/2019 2:50 AM CDT) Magnesium 1.5 (L) 1.6 - 2.6 mg/dL KU MAIN LAB Specimen Blood Performing Organization Address City/[facility]/[employer] Ph one Number [facility] MAIN LAB [address] [place] [address] * COMPREHENSIVE METABOLIC PANEL (12/29/2019 2:50 AM [...] >60 >60 mL/min [facility] MAIN LAB Comment: [place] The eGFR is not validated f or use in drug dosing adjustments. Continue to use estimated creatinine clearance per dosing reference text. Please contact the Clinical Pharmacist for questions. eGFR >60 >60 mL/min [facility] [place] Comment: The eGFR is not validated for use in drug dosing adjustments. Continue to use estimated creatinine clearance per dosing reference text. Please contact the Clinical Pharmacist for questions. Specimen Blood Performing Organization Address City/[facility]/Zipcode Ph one Number [facility] MAIN [facility] [address] [place] [address] * CBC AND DIFF (12/29/2019 2:50 AM CDT) White Blood 12.7 (H) 4.5 - 11.0 K/UL [facility]IN [facility] Cells RBC 2.73 (L) 4.0 - 5.0 M/UL [facility] Hemoglobin 7.6 (L) 12.0 - 15.0 GM/DL MAIN LAB Hematocrit 23.0 (L) 36 - 45 % MAIN LAB MCV 84.2 80 - 100 FL MAIN LAB MCH 27.9 26 - 34 PG MAIN LAB MCHC 33.1 32.0 - 36.0 G/DL MAIN LAB RDW 17.7 (H) 11 - 15 % [facility] MAIN [facility] Platelet Count 401 (H) 150 - 400 K/UL MAIN LAB MPV 7.4 7 - 11 FL MAIN LAB Neutrophils 79 (H) 41 - 77 % MAIN LAB Lymphocytes 13 (L) 24 - 44 % MAIN LAB Monocytes 5 4 - 12 % MAIN LAB Eosinophils 2 0 - 5 % MAIN LAB Basophils 1 0 - 2 % MAIN LAB Absolute 10.16 (H) 1.8 - 7.0 K/UL MAIN LAB Neutrophil Count Absolute Lymph 1.69 1.0 - 4.8 K/UL MAIN LAB Count Absolute 0.59 0 - 0.80 K/UL MAIN LAB Monocyte Count Absolute 0.22 0 - 0.45 K/UL MAIN LAB Eosinophil Count Absolute 0.06 0 - 0.20 K/UL MAIN LAB Basophil Count Specimen Blood Performing Organization Address [facility] one Number MAIN LAB [address] [place] [address] * VANCOMYCIN TROUGH (12/29/2019 12:30 AM CDT) Vancomycin 17.4 10.0 - 20.0 MCG/ML MAIN LAB Trough Specimen Blood, venous - Blood Performing Organization Address [facility] Ph one Number MAIN LAB [address] [place] [address] * POC GLUCOSE (12/28/2019 10:01 PM CDT) Glucose, POC 170 (H) 70 - 100 MG/DL MAIN LAB Specimen Performing Organization Address [facility] Ph one Number MAIN LAB [address] [place] [address] * POC GLUCOSE (12/28/2019 5:12 PM CDT) Glucose, POC 189 (H) 70 - 100 MG/DL [facility] MAIN [facility] Specimen Performing Organization Address [facility] Ph one Number MAIN LAB [address] [place] [address] * POC GLUCOSE (12/28/2019 12:25 PM CDT) Glucose, POC 207 (H) 70 - 100 MG/DL [facility] MAIN [facility] Specimen Performing Organization Address [facility] Ph one Number MAIN LAB [address] [place] [address] * POC GLUCOSE (12/28/2019 7:58 AM CDT) Glucose, POC 164 (H) 70 - 100 MG/DL [facility] MAIN [facility] Specimen Performing Organization Address [facility] Ph one Number MAIN LAB [address] [place] [address] * PHOSPHORUS (12/28/2019 5:08 AM CDT) Phosphorus 1.8 (L) 2.0 - 4.5 MG/DL MAIN LAB Specimen Blood Performing Organization Address [facility] Ph one Number MAIN LAB [address] [place] [address] * MAGNESIUM (12/28/2019 5:08 AM CDT) Magnesium 1.7 1.6 - 2.6 mg/dL MAIN LAB Specimen Blood Performing Organization Address [facility] one Number MAIN LAB [address] [place] [address] * COMPREHENSIVE METABOLIC PANEL (12/28/2019 5:08 AM CDT) Sodium 142 137 - 147 MMOL/L MAIN LAB Potassium 3.6 3.5 - 5.1 MMOL/L MAIN LAB Chloride 114 (H) 98 - [...] >60 >60 mL/min [facility] Comment: [place] The eGFR is not validated f or use in drug dosing adjustments. Continue to use estimated creatinine clearance per dosing reference text. Please contact the Clinical Pharmacist for questions. eGFR >60 >60 mL/min [facility] [place] Comment: The eGFR is not validated for use in drug dosing adjustments. Continue to use estimated creatinine clearance per dosing reference text. Please contact the Clinical Pharmacist for questions. Specimen Blood Performing Organization Address City/State/Zipcode Ph one Number [place] MAIN LAB [address] [place] [address] * CBC AND DIFF (12/28/2019 5:08 AM CDT) White Blood 14.7 (H) 4.5 - 11.0 [...] Count Absolute 0.09 0 - 0.20 K/UL MAIN LAB Basophil Count Specimen Blood Performing Organization Address [facility] one Number MAIN LAB [address] [place] [address] * CBC (12/28/2019 1:00 AM CDT) White Blood 16.1 (H) 4.5 - 11.0 K/UL MAIN LAB Cells RBC 2.70 (L) 4.0 - 5.0 M/UL MAIN LAB Hemoglobin 7.7 (L) 12.0 - 15.0 GM/DL MAIN LAB Hematocrit 22.9 (L) 36 - 45 % MAIN LAB MCV 85.0 80 - 100 FL MAIN LAB MCH 28.6 26 - 34 PG MAIN LAB MCHC 33.6 32.0 - 36.0 G/DL MAIN LAB RDW 17.7 (H) 11 - 15 % MAIN LAB Platelet Count 394 150 - 400 K/UL MAIN LAB MPV 7.6 7 - 11 FL MAIN LAB Specimen Blood Performing Organization Address [facility] one Number MAIN LAB [address] [place] [address] * TRANSFUSE RBC'S (12/27/2019 11:04 PM CDT) Specimen Blood * TRANSFUSE RBC'S (12/27/2019 11:04 PM CDT) Specimen Blood * POC GLUCOSE (12/27/2019 9:19 PM CDT) Glucose, POC 134 (H) 70 - 100 MG/DL MAIN LAB Specimen Performing Organization Address [facility] one Number MAIN LAB [address] [place] [address] * PROTIME INR (PT) (12/27/2019 7:00 PM CDT) INR 1.4 (H) 0.8 - 1.2 MAIN LAB Specimen Performing Organization Address [facility] Ph one Number MAIN LAB [address] [place] [address] * CBC (12/27/2019 7:00 PM CDT) White Blood 14.9 (H) 4.5 - 11.0 K/UL MAIN LAB Cells RBC 2.29 (L) 4.0 - 5.0 M/UL [facility] MAIN [facility] Hemoglobin 6.4 (L) 12.0 - 15.0 GM/DL [facility] MAIN LAB Hematocrit 19.4 (L) 36 - 45 % [facility] MAIN LAB MCV 85.0 80 - 100 FL [facility] MAIN LAB MCH 28.1 26 - 34 PG [facility] MAIN LAB MCHC 33.0 32.0 - 36.0 G/DL [facility] MAIN LAB RDW 18.2 (H) 11 - 15 % [facility] MAIN LAB Platelet Count 402 (H) 150 - 400 K/UL [facility] MAIN LAB MPV 7.7 7 - 11 FL [facility] MAIN LAB Specimen Blood Performing Organization Address [facility] Ph one Number MAIN LAB [address] [place] [address] * C REACTIVE PROTEIN (CRP) (12/27/2019 5:30 PM CDT) C-Reactive 20.51 (H) <1.0 MG/DL MAIN LAB Protein Specimen Blood Performing Organization Address [facility] one Number MAIN LAB [address] [place] [id number] * PREALBUMIN (12/27/2019 5:30 PM CDT) Prealbumin 9.0 (L) 17 - 34 MG/DL MAIN LAB Specimen Blood Performing Organization Address [facility] one Number MAIN LAB [address] [place] [id number] * POC GLUCOSE (12/27/2019 5:14 PM CDT) Glucose, POC 178 (H) 70 - 100 MG/DL MAIN LAB Specimen Performing Organization Address [facility] one Number MAIN LAB [address] [place] [address] * BASIC METABOLIC PANEL (12/27/2019 3:50 PM CDT) Sodium 141 137 - 147 MMOL/L [facility] MAIN [facility] Potassium 3.9 3.5 - 5.1 MMOL/L [facility] MAIN [facility] Chloride 113 (H) 98 - 110 MMOL/L [facility] MAIN [facility] CO2 20 (L) 21 - 30 MMOL/L [facility] MAIN [facility] Anion Gap 8 3 - 12 [facility] MAIN [facility] Glucose 180 (H) 70 - 100 MG/DL [facility] MAIN [facility] Blood Urea 12 7 - 25 MG/DL MAIN LAB Nitrogen Creatinine 0.94 0.4 - 1.00 MG/DL MAIN LAB Calcium 7.3 (L) 8.5 - 10.6 MG/DL MAIN LAB eGFR Non >60 >60 mL/min MAIN LAB Comment: [place] The eGFR is not validated f or use in drug dosing adjustments. Continue to use estimated creatinine clearance per dosing reference text. Please contact the Clinical Pharmacist for questions. eGFR >60 >60 mL/min MAIN LAB [place] Comment: The eGFR is not validated for use in drug dosing adjustments. Continue to use estimated creatinine clearance per dosing reference text. Please contact the Clinical Pharmacist for questions. Specimen Blood Performing Organization Address City/[facility] [address] [place] [address] * POC GLUCOSE (12/27/2019 12:25 PM CDT) Glucose, POC 256 (H) 70 - 100 MG/DL MAIN LAB Specimen Performing Organization Address [facility] one Number MAIN LAB [address] [place] [id number] * POC GLUCOSE (12/27/2019 7:42 AM CDT) Glucose, POC 257 (H) 70 - 100 MG/DL MAIN LAB Specimen Performing Organization Address [facility] one Number MAIN LAB [address] [place] [address] * TYPE & CROSSMATCH (12/27/2019 7:16 AM CDT) Units Ordered 1 MAIN LAB Crossmatch 12/30/2019,2359 MAIN LAB Expires Record Check FOUND MAIN LAB ABO/RH(D) A POS MAIN LAB Antibody Screen POS MAIN LAB CONSISTENT WITH HISTORICAL ANTIBODY Unit Number [id number] MAIN LAB Blood Component RBC,ADSOL,LEUKO REDUCED MAIN LAB Type Unit Division 0 MAIN LAB Status OF Unit TRANSFUSED MAIN LAB Transfusion OK TO TRANSFUSE MAIN LAB Status Crossmatch COMPATIBLE, GEL MAIN LAB Result Specimen Blood Performing Organization Address [facility] one Number MAIN LAB [address] [place] [phone] * CBC AND DIFF (12/27/2019 7:16 AM CDT) White Blood 15.2 (H) 4.5 - 11.0 K/UL [facility] MAIN [facility] Cells RBC 2.68 (L) 4.0 - 5.0 M/UL [facility] MAIN LAB Hemoglobin 7.6 (L) 12.0 - 15.0 GM/DL [facility] MAIN LAB Hematocrit 22.9 (L) 36 - 45 % [facility] MAIN LAB MCV 85.2 80 - 100 FL [facility] MAIN LAB MCH 28.4 26 - 34 PG [facility] MAIN LAB MCHC 33.3 32.0 - 36.0 G/DL [facility] MAIN LAB RDW 18.1 (H) 11 - 15 % [facility] MAIN LAB Platelet Count 434 (H) 150 - 400 K/UL [facility] MAIN LAB MPV 7.7 7 - 11 FL [facility] MAIN LAB Neutrophils 83 (H) 41 - 77 % KU MAIN [...] Basophil Count Specimen Blood Performing Organization Address [facility] one Number MAIN LAB [address] [place] [address] * IRON + BINDING CAPACITY + %SAT+ FERRITIN (12/27/2019 5:25 AM CDT) Pathologist [facility] Iron <10 (L) 50 - 160 MCG/DL [facility] MAIN LAB Iron 168 (L) 270 - 380 MCG/DL [facility] MAIN LAB Binding-TIBC Ferritin 145 10 - 200 NG/ML [facility] MAIN LAB Specimen Performing Organization Address [facility] one Number MAIN LAB [address] [place] [address] * PHOSPHORUS (12/27/2019 5:25 AM CDT) Phosphorus 2.1 2.0 - 4.5 MG/DL [facility] MAIN [facility] Specimen Blood Performing Organization Address [facility] one Number [facility] [address] [place] [address] * MAGNESIUM (12/27/2019 5:25 AM CDT) Pathologist [facility] Magnesium 1.1 (L) 1.6 - 2.6 mg/dL [facility] MAIN [facility] Specimen Blood Performing Organization Address [facility] one Number [facility] [address] [place] [address] * COMPREHENSIVE METABOLIC PANEL (12/27/2019 5:25 AM CDT) Pathologist [facility] Sodium 142 137 - 147 MMOL/L KU [...] >60 >60 mL/min [facility] Comment: [place] The eGFR is not validated f or use in drug dosing adjustments. Continue to use estimated creatinine clearance per dosing reference text. Please contact the Clinical Pharmacist for questions. eGFR >60 >60 mL/min [facility] [place] Comment: The eGFR is not validated for use in drug dosing adjustments. Continue to use estimated creatinine clearance per dosing reference text. Please contact the Clinical Pharmacist for questions. Specimen Blood Performing Organization Address [facility] one Number [facility] [address] [place] [address] * CBC AND DIFF (12/27/2019 5:25 AM [...] Basophil Count Specimen Blood Performing Organization Address [facility] one Number MAIN LAB [address] [place] [address] * PHOSPHORUS (12/27/2019 2:17 AM CDT) Phosphorus 2.1 2.0 - 4.5 MG/DL [facility] MAIN [facility] Specimen Blood Performing Organization Address [facility] one Number MAIN LAB [address] [place] [address] * MAGNESIUM (12/27/2019 2:17 AM CDT) Magnesium 1.1 (L) 1.6 - 2.6 mg/dL [facility] MAIN [facility] Specimen Blood Performing Organization Address [facility]/State/Zipcode Ph one Number [facility]IN [facility] [address] [place] [address] * COMPREHENSIVE METABOLIC PANEL (12/27/2019 2:17 AM [...] (L) >60 mL/min [facility] Comment: [place] The eGFR is not validated f or use in drug dosing adjustments. Continue to use estimated creatinine clearance per dosing reference text. Please contact the Clinical Pharmacist for questions. eGFR >60 >60 mL/min [facility] [place] Comment: The eGFR is not validated for use in drug dosing adjustments. Continue to use estimated creatinine clearance per dosing reference text. Please contact the Clinical Pharmacist for questions. Specimen Blood Performing Organization Address City/[facility]/Zipcode Ph one Number [facility]IN [facility] [address] [place] [address] * CBC AND DIFF (12/27/2019 2:17 AM CDT) White Blood 14.5 (H) 4.5 - 11.0 K/UL [facility] MAIN [facility] Cells RBC 2.42 (L) 4.0 - 5.0 M/UL [facility] MAIN [facility] Hemoglobin 6.9 (L) 12.0 - 15.0 GM/DL [facility] MAIN [facility] Hematocrit 20.6 (L) 36 - 45 % MAIN LAB MCV 85.2 80 - 100 FL MAIN LAB MCH 28.6 26 - 34 PG MAIN LAB MCHC 33.6 32.0 - 36.0 G/DL MAIN LAB RDW 18.1 (H) 11 - 15 % [facility] MAIN [facility] Platelet Count 407 (H) 150 - 400 K/UL MAIN LAB MPV 7.7 7 - 11 FL MAIN LAB Neutrophils 80 (H) 41 - 77 % [facility] MAIN [facility] Lymphocytes 13 (L) 24 - 44 % [facility]IN [facility] Monocytes 5 4 - 12 % [facility] MAIN [facility] Eosinophils 2 0 - 5 % MAIN LAB Basophils 0 0 - 2 % MAIN LAB Absolute 11.53 (H) 1.8 - 7.0 K/UL MAIN LAB Neutrophil Count Absolute Lymph 1.93 1.0 - 4.8 K/UL MAIN LAB Count Absolute 0.76 0 - 0.80 K/UL MAIN LAB Monocyte Count Absolute 0.24 0 - 0.45 K/UL MAIN LAB Eosinophil Count Absolute 0.05 0 - 0.20 K/UL MAIN LAB Basophil Count Specimen Blood Performing Organization Address [facility] Ph one Number MAIN LAB [address] [place] [address] * POC GLUCOSE (12/26/2019 9:27 PM CDT) Glucose, POC 289 (H) 70 - 100 MG/DL MAIN LAB Specimen Performing Organization Address [facility] Ph one Number MAIN LAB [address] [place] [address] * POC GLUCOSE (12/26/2019 6:27 PM CDT) Glucose, POC 353 (H) 70 - 100 MG/DL MAIN LAB Specimen Performing Organization Address [facility] Ph one Number MAIN LAB [address] [place] [address] * BASIC METABOLIC PANEL (12/26/2019 5:20 PM CDT) Sodium 139 137 - 147 MMOL/L MAIN LAB Potassium 3.5 3.5 - 5.1 MMOL/L MAIN LAB Chloride 113 (H) 98 - 110 MMOL/L MAIN LAB CO2 16 (L) 21 - 30 MMOL/L [facility] MAIN [facility] Anion Gap 10 3 - 12 MAIN LAB Glucose 348 (H) 70 - 100 MG/DL [facility] MAIN [facility] Blood Urea 18 7 - 25 MG/DL [facility] MAIN [facility] Nitrogen Creatinine 1.18 (H) 0.4 - 1.00 MG/DL [facility] MAIN [facility] Calcium 7.7 (L) 8.5 - 10.6 MG/DL MAIN LAB eGFR Non 49 (L) >60 mL/min MAIN LAB Comment: [place] The eGFR is not validated f or use in drug dosing adjustments. Continue to use estimated creatinine clearance per dosing reference text. Please contact the Clinical Pharmacist for questions. eGFR 59 (L) >60 mL/min [facility]IN [facility] [place] Comment: The eGFR is not validated for use in drug dosing adjustments. Continue to use estimated creatinine clearance per dosing reference text. Please contact the Clinical Pharmacist for questions. Specimen Blood Performing Organization Address [facility] one Number MAIN LAB [address] [place] [address] * POC GLUCOSE (12/26/2019 11:48 AM CDT) Glucose, POC 386 (H) 70 - 100 MG/DL MAIN LAB Specimen Performing Organization Address [facility] one Number MAIN LAB [address] [place] [address] * CULTURE-URINE W/SENSITIVITY (12/26/2019 10:45 AM CDT) Battery Name URINE CULTURE MAIN LAB Specimen URINE MAIN LAB Description Special NONE MAIN LAB Requests Culture NO GROWTH MAIN LAB Report Status FINAL MAIN LAB 12/27/2019 Specimen Urine - Urine Performing Organization Address [facility] one Number MAIN LAB [address] [place] [address] * GRAM STAIN (12/26/2019 10:40 AM CDT) Battery Name GRAM STAIN MAIN LAB Specimen SWAB MAIN LAB Description WOUND COCCYX Special NONE MAIN LAB Requests Gram Stain NO NEUTROPHILS SEEN MAIN LAB MODERATE SQUAMOUS EPITHELIAL CELLS MANY GRAM POSITIVE COCCI Report Status FINAL MAIN LAB 12/26/2019 Specimen Swab Performing Organization Address [facility] one Number MAIN LAB [address] [place] [address] * CULTURE-WOUND/TISSUE/FLUID(AEROBIC ONLY)W/SENSITIVITY (12/26/2019 10:40 AM CDT) [...] isolate is mrsa Trimethsulfa SRINIVAS (MCG/ML) INTERPRETATION >4/76 RESISTANT: Resistant Heavy growth methicillin resistant staphylococcus [...] that isolate is mrsa Performing Organization Address [facility] Ph one Number MAIN LAB [address] [place] [address] * POC GLUCOSE (12/26/2019 7:48 AM CDT) Glucose, POC 343 (H) 70 - 100 MG/DL [facility] MAIN LAB Specimen Performing Organization Address City/State/[facility] one Number [place] MAIN LAB [address] [place] [address] * LACTIC ACID(LACTATE) (12/26/2019 4:36 AM CDT) Lactic Acid 1.4 0.5 - 2.0 MMOL/L [facility] MAIN LAB Specimen Blood Performing Organization Address [facility] one Number MAIN LAB [address] [place] [address] * CULTURE-BLOOD W/SENSITIVITY (12/26/2019 4:36 AM CDT) Battery Name BLOOD CULTURE [facility] MAIN LAB Specimen BLOOD MAIN LAB Description NO SITE INDICATED aerobic bottle only Special NONE MAIN LAB Requests Culture NO GROWTH 5 DAYS MAIN LAB Report Status FINAL MAIN LAB 01/01/2020 Specimen Blood Performing Organization Address [facility] one Number MAIN LAB [address] [place] [address] * MAGNESIUM (12/26/2019 2:50 AM CDT) Magnesium 1.4 (L) 1.6 - 2.6 mg/dL MAIN LAB Specimen Performing Organization Address [facility] one Number MAIN LAB [address] [place] [address] * CBC AND DIFF (12/26/2019 2:50 AM CDT) White Blood 20.1 (H) 4.5 - 11.0 K/UL MAIN LAB Cells RBC 2.73 (L) 4.0 - 5.0 M/UL MAIN LAB Hemoglobin 7.7 (L) 12.0 - 15.0 GM/DL KU MAIN LAB Hematocrit 23.9 (L) 36 - 45 % MAIN LAB MCV 87.7 80 - 100 FL MAIN LAB MCH 28.3 26 - 34 PG MAIN LAB MCHC 32.3 32.0 - 36.0 G/DL MAIN LAB RDW 18.4 (H) 11 - 15 % [facility] MAIN LAB Platelet Count 507 (H) 150 - 400 K/UL [facility] MAIN LAB MPV 8.1 7 - 11 FL MAIN LAB Neutrophils 87 (H) 41 - 77 % MAIN LAB Lymphocytes 7 (L) 24 - [...] LAB Basophil Count Specimen Performing Organization Address City/State/Zipcode Ph one Number [facility] MAIN LAB [address] [place] [address] * COMPREHENSIVE METABOLIC PANEL (12/26/2019 2:50 AM [...] Anion Gap 13 (H) 3 - 12 KU MAIN LAB eGFR Non 47 (L) >60 mL/min [facility] MAIN LAB Comment: [place] The eGFR is not validated f or use in drug dosing adjustments. Continue to use estimated creatinine clearance per dosing reference text. Please contact the Clinical Pharmacist for questions. eGFR 57 (L) >60 mL/min [facility] MAIN LAB [place] Comment: The eGFR is not validated for use in drug dosing adjustments. Continue to use estimated creatinine clearance per dosing reference text. Please contact the Clinical Pharmacist for questions. Specimen Performing Organization Address [facility] Ph one Number MAIN LAB [address] [place] [address] * PREALBUMIN (12/26/2019 2:50 AM CDT) Prealbumin 12.0 (L) 17 - 34 MG/DL MAIN LAB Specimen Blood Performing Organization Address [facility] Ph one Number MAIN LAB [address] [place] [address] * LIPASE (12/26/2019 2:50 AM CDT) Lipase 24 11 - 82 U/L MAIN LAB Specimen Blood Performing Organization Address [facility] one Number MAIN LAB [address] [place] [address] * AMYLASE (12/26/2019 2:50 AM CDT) Amylase 44 24 - 100 U/L MAIN LAB Specimen Blood Performing Organization Address [facility] one Number MAIN LAB [address] [place] [address] * LACTIC ACID (BG - RAPID LACTATE) (12/26/2019 2:50 AM CDT) Lactic Acid,BG 1.5 0.5 - 2.0 MMOL/L MAIN LAB Specimen Blood Performing Organization Address [facility] one Number MAIN LAB [address] [place] [address] * CULTURE-BLOOD W/SENSITIVITY (12/26/2019 2:50 AM CDT) Battery Name BLOOD CULTURE MAIN LAB Specimen BLOOD MAIN LAB Description CHEST PORT Special NONE MAIN LAB Requests Culture NO GROWTH 5 DAYS MAIN LAB Report Status FINAL MAIN LAB 01/01/2020 Specimen Blood Performing Organization Address [facility] one Number MAIN LAB [address] [place] [address] * COVID-19 (SARS-COV-2) PCR (12/26/2019 1:30 AM CDT) COVID-19 NASOPHARYNGEAL SWAB MAIN LAB (SARS-CoV-2) PCR Source COVID-19 NOT DETECTED DN-NOT DETECTED [facility]3] LAB (SARS-CoV-2) Comment: PCR This assay is [...] performance characteristics have been verified by the [facility]. Fact sheet for providers: https://www.fda.gov/media/1362 56/download Fact sheet for patients: https://www.fda.gov/media/7972 57/download Specimen Nasopharyngeal Swab Performing Organization Address City/State/Zipcode Ph one Number MAIN LAB [address] [place] [address] * CT ABD/PEL EXTERNAL IMAGING (12/25/2019 12:05 [...] of sacral region, stage 3 (HCC) Diagnosis Abnormal uterine bleeding Unspecified disorder of menstruation an d other abnormal bleeding from female genital tract Thickened endometrium Nonspecific (abnormal) findings on radi ological and other examination of genitourinary organs documented in this encounter Administered Medications Action Date Dose Rate Site Medication Order MAR Action 01/04/2020 4:17 AM CDT 500 mg [...] PM CDT Given 01/03/2020 1:04 PM CDT 12/31/2019 8:24 AM CDT 40 mL bupivacaine 0.25%/EPINEPHrine 1:200,000 Given injection INTRA-PROCEDURE MED, Starting Renu 0 at 0824, Until Renu 12/31/19 at 1007, Intra-op 01/03/2020 9:40 PM CDT 40 mg Abdomina [...] 325 mg Given 01/02/2020 9:44 AM CDT 01/04/2020 9:06 AM CDT 2 Units Arm, Rig ht insulin aspart U-100 (NOVOLOG FLEXPEN) Given injection PEN 0-6 Units 0-6 Units, Subcutaneous, BEFORE MEALS AND 2200, First dose on 12/26/19 at 0700, Until Discontinued, -POC glucose 181-220mg/dL at , , administer 1 unit insulin, at 22, 03* administer 0 units. -POC glucose 221-260mg/dL at , , administer 2 units insulin, at , 03* administer 1 unit. -POC glucose 261-300mg/dL at , , administer 3 units insulin, at , 03* administer 2 units. -POC glucose 301-350mg/dL at , , administer 4 units insulin, at , 03* administer 3 units. -POC glucos e 351-400mg/dL at , , administer 5 units insulin, at , 03* administer 4 units. -POC glucose >400mg/dL at , , administer 6 units insulin, at , 03* administer 5 units. *only if ordered [...] Abdominal Tissue Given 01/03/2020 1:03 PM CDT 01/03/2020 9:40 PM CDT 15 Units [...] Abdominal Tissue Given 01/01/2020 9:01 PM CDT 01/04/2020 9:00 AM CDT 1 capsule lactobacillus rhamnosus GG (CULTURELLE) Given 15 billion cell capsule 1 capsule 1 capsule, Oral, DAILY WITH BREAKFAST, First dose on 12/26/19 at 0800, Unti l Discontinued 1 capsule Given 01/03/2020 8:47 AM CDT 1 capsule Given 01/02/2020 10:46 AM CDT 01/04/2020 9:03 AM CDT 2.5 mg lisinopriL (ZESTRIL) tablet 2.5 mg Given 2.5 mg, Oral, DAILY, First dose on 12/26/19 at 0900, Until Discontinued 2.5 mg Given 01/03/2020 8:46 AM CDT 2.5 mg Given 01/02/2020 9:45 AM CDT 01/04/2020 11:18 AM CDT mafenide (SULFAMYLON) topical cream Given Topical, DAILY, First dose on 12/27/19 at 1800, Until Discontinued, Apply to right ischial pressure ulcer daily., Given 01/03/2020 1:05 PM CDT Given 01/02/2020 10:59 AM CDT 01/04/2020 9:02 AM CDT 10 mg medroxyPROGESTERone (proVERA) tablet 10 Given mg 10 mg, Oral, TWICE DAILY, First dose (after last modification) on Sun 0 at 2100, Until Discontinued 10 mg Given 01/03/2020 9:39 PM CDT 10 mg Given 01/03/2020 8:53 AM CDT 01/01/2020 3:15 PM CDT 1 mg morphine injection 1-2 mg Given 1-2 mg, Intravenous, EVERY 6 HOURS PRN , Starting 01/01/20 at 1156, Until 01/04/20 at 1515, Pain Injectable 1 mg Given [...] PRN, Startin g 12/26/19 at 0115, Until Sat01/04/20 a t 1515, Nausea/Vomiting PO 4 mg Given 01/04/2020 4:17 AM CDT 4 mg Given 12/29/2019 9:50 AM CDT 01/04/2020 9:04 AM CDT 650 mg sodium bicarbonate tablet 650 mg Given 650 mg, Oral, TWICE DAILY, First dose o n 12/29/19 at 1415, Until Discontinued, Each 325mg tab delivers 3.8 mEq Na (650mg tab = 7.6 mEq Na), 650 mg Given 01/03/2020 9:39 PM CDT 650 mg Given 01/03/2020 8:53 AM CDT 01/03/2020 1:06 PM CDT sodium hypochlorite (DAKIN'S 1/2 Given STRENGTH) 0.25 % topical solution Irrigation, NEEDED, Starting Renu 12/31/19 at 1414, Until 01/04/20 at 1515, Topical for Dressing Changes, Apply per wound care instructions, Given 12/31/2019 9:55 PM CDT 12/31/2019 8:54 AM CDT 120 mL sodium hypochlorite (DAKIN'S FULL Given STRENGTH) 0.5 % topical solution INTRA-PROCEDURE MED, Starting Renu 0 at 0854, Until Renu 12/31/19 at 1007, Intra-op 12/31/2019 8:26 AM CDT 1 each thrombin 5,000 unit topical spray kit Given INTRA-PROCEDURE MED, Starting Renu 0 at 0826, Until Renu 12/31/19 at 1007, Intra-op 01/04/2020 1:29 AM CDT 750 mg 165 [...] tablet, Oral, DAILY, First dose on Mo 12/28/19 at 1600, Until Discontinued 1 tablet [...]
--- OUTSIDE RECORDS SUMMARY | 2020-02-11 00:57 | XMS REPORT | Encounter Summary ---
Author Author [facility] Organization [facility] Address Unknown Phone Unavailable Care Team Providers Care Volunteer Coordinator Name Role Phone Pb Ibrahim MD Unavailable Milo Louis MD Unavailable Christopher Stuart RN Unavailable Unavailable Dorothea Clark MD Unavailable Margaert Bruce RN Unavailable Unavailable Christopher Galvan MD [...] Specialty Diagnoses / Procedures Briana Maciel MD [address] [place] [address] [facility] [address] [place] [address] No Auth Needed Radiology Diagnoses Pelvic mass P rocedures MRI PELVIS WO/W CONTRAST Reason for Visit * Auth/Cert Referred By Contact Referred To Contact Status Reason Specialty Diagnoses / Procedures Diagnoses Sepsis (HCC) Wound Infection Encounter Details Care Team Description Date Type Department Briana Maciel MD [address] [facility] [place], [place] [id number] 12/23/2019 [facility] [address] [place] [address] Social History Date Tobacco Use Types Packs/Day [...] hours as needed for Pain (body aches). ferrous sulfate 325 mg Take 325 mg 0 (65 mg iron) tablet by mouth daily. metFORMIN (GLUCOPHAGE) Take 500 mg 0 500 mg tablet by mouth twice daily with meals. 10/08/2014 ondansetron (ZOFRAN) 4 mg Take 1 Tab by 30 Tab 2 tablet mouth every 8 hours as needed for Nausea. vitamins, multiple tablet Take 1 Tab by 0 mouth daily. 01/04/2020 atorvastatin (LIPITOR) 40 Take 40 mg by 0 mg tablet mouth daily. 12/26/2019 bisacodyl (DULCOLAX) 10 Insert or 0 mg rectal suppository Apply 10 mg to rectal area as directed at bedtime as needed. 12/26/2019 Cranberry Extract 300 mg Take 1 Tab by 0 tab mouth daily. 02/10/2020 famotidine (PEPCID) 20 mg Take 20 mg by 0 tablet mouth daily. 12/26/2019 fish oil /omega-3 fatty Take 1 Cap by 0 acids (SEA-OMEGA) mouth at 340/1000 mg capsule bedtime daily. 12/26/2019 INSULIN ASPART (NOVOLOG Inject 8 0 SC) Units under the skin three times daily. 01/04/2020 insulin detemir(+) Inject 46 0 (LEVEMIR) 100 unit/mL Units under solnIndications: 26 units the skin in the AM and 36 units at twice daily HS before meals. Indications: 26 units in the AM and 36 units at HS 12/26/2019 lactobacillus rhamnosus Take 1 Cap by 0 GG (LACTOBACILLUS mouth daily RHAMNOSUS (GG)) 15 with billion cell cpSP breakfast. 01/04/2020 lisinopriL (ZESTRIL) 5 mg Take 5 mg by 0 tablet mouth daily. 10/19/2019 01/04/2020 medroxyPROGESTERone Take 10 mg by 0 (PROVERA) 10 mg tablet mouth daily. 03/04/2016 12/26/2019 milk of magnesia (CONC) Take 10 mL by 0 2,400 mg/10 mL oral mouth twice suspension daily. 04/17/2017 12/26/2019 neomycin/polymyxin B 50 mL by 3 Bottle 11 40-200,000 mg-unit/mL 1 Irrigation mL in sodium chloride route daily. 0.9% irrigation bottle Refrigerate; 0.9 % 500 mL irrigation protect from light 10/19/2014 02/10/2020 prochlorperazine Take 1 Tab by 30 Tab 1 (COMPAZINE) 10 mg tablet mouth every 6 hours as needed. 03/04/2016 12/26/2019 senna/docusate Take 1 Tab by 0 (SENOKOT-S) 8.6/50 mg mouth twice tablet daily. 04/10/2017 12/26/2019 trimethoprim (TRIMPEX) Take 1 tablet 14 tablet 0 100 mg tabletIndications: by mouth Urinary tract infection, twice daily. site unspecified 03/05/2017 12/26/2019 trimethoprim (TRIMPEX) Take 1 Tab by 14 Tab 0 100 mg tabletIndications: mouth twice Recurrent UTI, Kidney daily. stones documented as of this encounter Plan of Treatment Care Team Description Date Type Specialty Cody Tirado MD [address] [place], [place] [id number] Pressure ulcer of sacral region, stage 3 (HCC) 02/15/2020 Hospital Encounter Candice KourtneyTASH cai [id number] [place], [place] [id number] 02/15/2020 Anesthesia Event Cody Tirado MD [address] [place], [place] [id number] EXCISION SACRAL PRESSURE ULCER - PREPARA TION [...] node which have slowly increased over the st 3 years suggesting reactive adenopathy. Finalized [...] on 12/24/2019 7:19 AM. Dictated by Miguel Eilas M.D. on 12/24/2019 7:04 AM. Performing Organization Address City/State/Zipcode Ph one Number [facility] RESULTS documented in this encounter Visit Diagnoses Diagnosis Pressure ulcer of sacral region, stage 3 (HCC) Diagnosis Pelvic mass Abdominal or pelvic swelling, [...] PM CDT MRSA 11/21/2015 3:59 PM CDT documented as of this encounter
--- OUTSIDE RECORDS SUMMARY | 2020-02-11 00:57 | XMS REPORT | Encounter Summary ---
Author Author [facility] Organization [facility] Address Unknown Phone Unavailable Care Team Providers Care Mixer Helper Name Role Phone Pb Ibrahim MD Unavailable [...] Details Care Team Description Date Type Department 12/25/2019 [facility] [address] [address] Social History Date Tobacco Use [...] zinc) capsules by capsule mouth daily. 01/04/2020 atorvastatin (LIPITOR) 40 Take 40 mg by 0 mg tablet mouth daily. 12/26/2019 bisacodyl (DULCOLAX) 10 Insert or 0 mg rectal suppository Apply 10 mg to rectal area as directed at bedtime as needed. 01/04/2020 01/13/2020 cephalexin (KEFLEX) 500 Take one 36 capsule 0 mg capsule capsule by mouth four times daily for 9 days. 12/26/2019 Cranberry Extract 300 mg Take 1 Tab by 0 tab mouth daily. 01/04/2020 01/13/2020 doxycycline (VIBRAMYCIN) Take one 18 capsule 0 100 mg capsule capsule by mouth twice daily for 9 days. 02/10/2020 famotidine (PEPCID) 20 mg Take 20 mg by 0 tablet mouth daily. 12/26/2019 fish oil /omega-3 fatty Take 1 Cap by 0 acids (SEA-OMEGA) mouth at 340/1000 mg capsule bedtime daily. 01/04/2020 01/13/2020 fluconazole (DIFLUCAN) Take one 9 tablet 0 200 mg tablet tablet by mouth daily for 9 days. 12/26/2019 INSULIN ASPART (NOVOLOG Inject 8 0 SC) Units under the skin three times daily. 01/27/2020 insulin aspart U-100 Inject 15 0 [...] the pen skin at bedtime daily. 01/04/2020 insulin detemir(+) Inject 46 0 (LEVEMIR) 100 unit/mL Units under solnIndications: 26 units the skin in the AM and 36 units at twice daily HS before meals. Indications: 26 units in the AM and 36 units at HS 12/26/2019 lactobacillus rhamnosus Take 1 Cap by 0 GG (LACTOBACILLUS mouth daily RHAMNOSUS (GG)) 15 with billion cell cpSP breakfast. 01/04/2020 01/27/2020 lisinopriL (ZESTRIL) 5 mg Take one-half 90 tablet 0 tablet tablet by mouth daily. 01/04/2020 lisinopriL (ZESTRIL) 5 mg Take 5 mg by 0 tablet mouth daily. 01/04/2020 02/10/2020 medroxyPROGESTERone Take one 60 tablet 0 (PROVERA) 10 mg tablet tablet by mouth twice daily. 10/19/2019 01/04/2020 medroxyPROGESTERone Take 10 mg [...] (SENOKOT-S) 8.6/50 mg mouth twice tablet daily. 01/04/2020 01/04/2020 sodium bicarbonate 650 mg Take one 60 tablet 0 tablet tablet by mouth four times daily. 01/04/2020 01/23/2020 sodium bicarbonate 650 mg Take one 60 tablet 0 tablet tablet by mouth twice daily. 04/10/2017 12/26/2019 trimethoprim (TRIMPEX) Take 1 tablet 14 tablet 0 100 mg tabletIndications: by mouth Urinary tract infection, twice daily. site unspecified 03/05/2017 12/26/2019 trimethoprim (TRIMPEX) Take 1 Tab by 14 Tab 0 100 mg tabletIndications: mouth twice Recurrent UTI, Kidney daily. stones documented as of this encounter Plan of Treatment Care Team Description Date Type Specialty Cody Tirado MD [address] [place], [place] [phone] Pressure ulcer of sacral region, stage 3 ([facility]) 02/15/2020 Hospital Encounter Kourtney Harvey APRN [id number] [place] [address] [phone] 02/15/2020 Anesthesia Event Cody Tirado MD [address] [place], [place] [id number] EXCISION SACRAL PRESSURE ULCER - PREPARA TION FOR MUSCLE/ MYOCUTANEOUS FLAP/ SKIN GRAFT CLOSURE 02/15/2020 Surgery documented as of this encounter Goals Goal Patient Associated Recent Progress Patient-Stat Aut hor Goal Type Problems ed? Resume normal activities Hospital Yes Uma Burns RN Improve wellness, "to get Hospital Yes Bowl es, better" CHARLIE Eaton documented as of this encounter Procedures Comments Procedure Name Priority Date/Time Associated Diag nosis CT ABD/PEL EXTERNAL Routine 12/25/2019 IMAGING 12:05 AM CDT documented in this encounter Results * CT ABD/PEL EXTERNAL IMAGING (12/25/2019 12:05 [...]
--- OUTSIDE RECORDS SUMMARY | 2020-02-11 00:57 | XMS REPORT | Encounter Summary ---
Author Author [facility] Organization [facility] Address Unknown Phone Unavailable Care Team Providers Care Checkering Machine Operator Name Role Phone Pb Ibrahim MD [...] Date Type Specialty Cody Tirado MD [address] [place] [address] Pressure ulcer of sacral region, stage 3 (HCC) 02/15/2020 Hospital Encounter Kourtney Harvey APRN [id number] [place] [address] [phone] 02/15/2020 Anesthesia Event Cody Tirado MD [address] [place], [place] [id number] [phone] EXCISION SACRAL PRESSURE ULCER - PREPARA TION [...]
--- OUTSIDE RECORDS SUMMARY | 2020-02-11 00:57 | XMS REPORT | Encounter Summary ---
Author Author [facility] Organization [facility] Address Unknown Phone Unavailable Care Team Providers Care Billet Recorder Name Role Phone Pb Ibrahim MD Unavailable [...] Description Date Type Department Briana Maciel MD [address] [place] [address] Other 12/24/2019 Telephone [facility] [address] [place] [address] Social History Date Tobacco Use Types Packs/Day [...] Date Type Specialty Cody Tirado MD [address] [place], [place] [id number] Pressure ulcer of sacral region, stage 3 (HCC) 02/15/2020 Hospital Encounter Kourtney Harvey APRN [id number] [place] [address] [phone] 02/15/2020 Anesthesia Event Cody Tirado MD [address] [place] [address] EXCISION SACRAL PRESSURE ULCER - PREPARA TION [...]
--- OUTSIDE RECORDS SUMMARY | 2020-02-11 00:57 | XMS REPORT | Encounter Summary ---
Author Author [facility] Organization [facility] Address Unknown Phone Unavailable Care Team Providers Care Night Assistant Name Role Phone Pb Ibrahim MD Unavailable [...] Description Date Type Department Briana Maciel MD [address] [place] [address] Abnormal uterine bleeding (Primary Dx); Thickened endometrium 12/22/2019 Prep for [facility] [address] [place] [address] Social History Date Tobacco Use Types Packs/Day [...] Date Type Specialty Cody Tirado MD [address] [place] [address] Pressure ulcer of sacral region, stage 3 (HCC) 02/15/2020 Hospital Encounter Kourtney Harvey APRN [address] [place] [address] [phone] 02/15/2020 Anesthesia Event Cody Tirado MD [address] [place] [address] [phone] EXCISION SACRAL PRESSURE ULCER - PREPARA TION [...]
--- OUTSIDE RECORDS SUMMARY | 2020-02-11 00:57 | XMS REPORT | Encounter Summary ---
Author Author [facility] Organization [facility] Address Unknown Phone Unavailable Care Team Providers Care Chef Passenger Vessel Name Role Phone Pb Ibrahim MD Unavailable [...] Care Team Description Date Type Department 12/25/2019 Travel Social History Date Tobacco Use Types [...] Date Type Specialty Cody Tirado MD [address] [place] [address] Pressure ulcer of sacral region, stage 3 (HCC) 02/15/2020 Hospital Encounter Kourtney Harvey APRN [id number] [place] [address] [phone] 02/15/2020 Anesthesia Event Cody Tirado MD [address] [place], [place] [id number] [phone] EXCISION SACRAL PRESSURE ULCER - PREPARA TION [...]
--- OUTSIDE RECORDS SUMMARY | 2020-02-11 00:57 | XMS REPORT | Encounter Summary ---
Author Author [facility] Organization [facility] Address Unknown Phone Unavailable Care Team Providers Care Director Of Recruiting Name Role Phone Pb Ibrahim MD Unavailable [...] Description Date Type Department Briana Maciel MD [address] [place] [address] Abnormal uterine bleeding (Primary Dx) 12/23/2019 Orders Only [facility] [place] [address] [place] [address] Social History Date Tobacco Use Types Packs/Day [...] Date Type Specialty Cody Tirado MD [address] [place] [address] Pressure ulcer of sacral region, stage 3 (HCC) 02/15/2020 Hospital Encounter Kourtney Harvey APRN [address] [place] [address] [phone] 02/15/2020 Anesthesia Event Cody Tirado MD [address] [place] [address] [phone] EXCISION SACRAL PRESSURE ULCER - PREPARA TION FOR MUSCLE/ MYOCUTANEOUS FLAP/ SKIN GRAFT CLOSURE 02/15/2020 Surgery Order Schedule Name Type Priority Associated Diag noses Expected: 12/23/2019, Expires: 1 TYPE & SCREEN (NOT Blood Bank Routine Abnormal ut erine bleeding CROSSMATCH ELIGIBLE) documented as of this encounter Goals Goal Patient Associated Recent Progress Patient-Stat Aut hor Goal Type Problems ed? Resume normal activities Hospital Yes Uma Burns, RN Improve wellness, "to get Hospital Yes Kaylee nagel, better" Uma RN documented as of this encounter Visit Diagnoses [...]
--- OUTSIDE RECORDS SUMMARY | 2020-02-11 00:57 | XMS REPORT | Encounter Summary ---
Author Author [facility] Organization [facility] Address Unknown Phone Unavailable Care Team Providers Care Application Administrator Name Role Phone Pb Ibrahim MD Unavailable [...] Care Team Description Date Type Department 12/25/2019 [facility] [address] [address] Social History Date Tobacco Use [...] Date Type Specialty Cody Tirado MD [address] [place], [place] [id number] Pressure ulcer of sacral region, stage 3 ([facility]) 02/15/2020 Hospital Encounter Kourtney Harvey APRN [id number] [place] [address] [phone] 02/15/2020 Anesthesia Event Cody Tirado MD [address] [place], [place] [id number] EXCISION SACRAL PRESSURE ULCER - PREPARA TION [...] Procedure Name Priority Date/Time Associated Diag nosis GENERAL RAD CHEST Routine 12/25/2019 EXTERNAL IMAGING 12:00 AM CDT documented in this encounter Results * GENERAL RAD CHEST EXTERNAL IMAGING (12/25/2019 [...]
--- OUTSIDE RECORDS SUMMARY | 2020-02-11 00:57 | XMS REPORT | Encounter Summary ---
Author Author [facility] Organization [facility] Address Unknown Phone Unavailable Care Team Providers Care Flight Control Specialist Name Role Phone Pb Ibrahim MD [...] Date Type Specialty Cody Tirado MD [address] [place] [address] Pressure ulcer of sacral region, stage 3 (HCC) 02/15/2020 Hospital Encounter Kourtney Harvey APRN [id number] [place] [address] [phone] 02/15/2020 Anesthesia Event Cody Tirado MD [address] [place], [place] [id number] [phone] EXCISION SACRAL PRESSURE ULCER - PREPARA TION [...]
--- OUTSIDE RECORDS SUMMARY | 2020-02-11 00:57 | XMS REPORT | Encounter Summary ---
Author Author [facility] Organization [facility] Address Unknown Phone Unavailable Care Team Providers Care Supervisor Sleeping Bag Department Name Role Phone Pb Ibrahim MD Unavailable [...] Specialty Diagnoses / Procedures Briana Maciel MD [address] [place] [address] [facility] [address] [place] [address] No Auth Needed Radiology Diagnoses Pelvic mass P rocedures MRI PELVIS WO/W CONTRAST Reason for Visit * Reason Comments Abnormal Uterine Bleeding * Consult, Test & Treat (Routine) Referred By Contact Referred To Contact Status Reason Specialty Diagnoses / Procedures Jamil Petty DO Cc - [facility] [address] [place] [address] No Auth Needed Oncology Diagnoses Noninflammatory disorder of ovary, fallopian tube and broad ligament, unspecified Encounter Details Care Team Description Date Type Department Briana Maciel MD [address] [place] [address] Pelvic mass (Primary Dx); Type 2 diabetes mellitus without complication, unspecified whether mcc insulin use (HCC) ; Other abnormal tumor markers ; Recurrent UTI; Paraplegia (HCC); History of urinary diversion procedure ([place] Pouch); Abnormal uterine bleeding; Adnexal mass 12/22/2019 [place] [address] Social History Date Tobacco Use Types Packs/Day [...] Nurse Coordinators: Marla Lema & Gino Feldman [phone] Please use the nurses line above if you have any questions or concerns at any ti me. Leave a message if necessary and your call will be returned. If it is after 4:00pm, it may be returned the following business day. documented in this encounter Progress Notes * Briana Maciel MD - 12/22/2019 9:00 AM CDT Subjective GYNECOLOGIC ONCOLOGY EVALUATION Name:Tam Lozano Date: 12/26/19 Referring Physician: Referring Physician: Dr. Jamil Petty Contact Name & Number: Yesenia Menjivar @ [phone] PCP: Dr. Milo Jj Other: Urology: Dr. Milo Louis () Primary Care Physician: Milo Jj Chief Complaint: Chief Complaint Patient presents with Abnormal Uterine Bleeding History of Present Illness: Tam Lozano is a 49 y.o. female referred for abnormal uterine bleeding and known history of pelvic masses bilaterally. She notes that she does not menstruate normally and recently has been having epi sodes of irregular bleeding and cramping. She was sexually active with her spous e for 6 years then two years ago she started to have pelvic pain. She notes a 5 week ago admission to her local hospital for urinary sepsis. She a lso notes that since discharge her DM has been uncontrolled with glucose in the 300-400 range. Sonogram on 10/02/19 for abnormal uterine bleeding [...] uterus and right ovary as described above. No history exists. Surgical Hx Surgery/Year: C- section x 2 08/01/1993 and 04/09/1990, Cryotherapy, L EEP at age 26. Reproductive History Menstrual Hx LMP: Patient reports [...] scan: Denies DPOA: No Living Will: No Past Medical History: Medical History: Diagnosis Date Back pain Bladder stone 2013 [place] pouch stone Cancer (HCC) Diabetes mellitus (HCC) [...] 11/22/2015 Performed by Milo Louis MD at [facility] OR CYSTOLITHOLAPAXY, LEFT PERCUTANEOUS NEPHROLITHOTOMY, SECOND LOOK Left 016 Performed by Milo Louis MD at [facility] OR HX NEPHRECTOMY Medications: No current facility-administered medications for this visit. No current outpatient medications on file. Facility-Administered Medications Ordered in Other Visits: acetaminophen (TYLENOL) tablet 500 mg, 500 mg, Oral, Q4H PRN, Espinoza Thorne MD atorvastatin (LIPITOR) tablet 40 mg, 40 mg, Oral, QDAY, Scottie Thorne MD cefepime (MAXIPIME) 2 g in sodium chloride 0.9% (NS) 100 mL IVPB (MB+), 2 g , Intravenous, Q12H*, Scottie Thorne MD, Last Rate: 200 mL/hr at 12/26/19 0 207, 2 g at 12/26/19 0207 dextrose 5% (D5W) with sodium bicarbonate 150 mEq 1,150 mL IV infusion, , I ntravenous, Continuous, Scottie Thorne MD, Last Rate: 150 mL/hr at 12/26/19 0556 ferrous sulfate (FEOSOL) tablet 325 mg, 325 mg, Oral, QDAY, Levon Thorne MD insulin aspart U-100 (NOVOLOG FLEXPEN) injection PEN 0-6 Units, 0-6 Units, Subcutaneous, ACHS (22), Scottie Thorne MD insulin aspart U-100 (NOVOLOG FLEXPEN) injection PEN 8 Units, 8 Units, Subc utaneous, TID w/ meals, Scottie Thorne MD insulin glargine (LANTUS SOLOSTAR) injection PEN 20 Units, 20 Units, Subcut aneous, BID, Scottie Thorne MD lactobacillus rhamnosus GG (CULTURELLE) 15 billion cell capsule 1 capsule, 1 capsule, Oral, QDAY w/breakfast, Scottie Thorne MD lisinopriL (ZESTRIL) tablet 2.5 mg, 2.5 mg, Oral, QDAY, Scottie Thorne MD medroxyPROGESTERone (proVERA) tablet 10 mg, 10 mg, Oral, QDAY, Tong Thorne MD metroNIDAZOLE (FLAGYL) 500 mg IVPB 100 mL, 500 mg, Intravenous, Q8H*, Scottie Rodriguez MD, 500 mg at 12/26/19 0257 neomycin/polymyxin B 1 mL in sodium chloride 0.9% irrigation bottle 500 mL irrigation, , Irrigation, QDAY, Scottie Thorne MD ondansetron (ZOFRAN) tablet 4 mg, 4 mg, Oral, Q8H PRN, Scottie Thorne MD vancomycin (VANCOCIN) 1,000 mg in dextrose 5% (D5W) 250 mL IVPB ([id number]), 15 mg/kg, Intravenous, Q24H*, Provider, Pharmacy, Last Rate: 250 mL/hr at 12/25 0410, 1,000 mg at 12/26/19 0410 vancomycin, pharmacy to manage, 1 each, Service, Per Pharmacy, Tong Thorne MD Allergies: Allergies Allergen Reactions Oxycodone NAUSEA ONLY Amoxicillin RASH Bactrim [Sulfamethoxazole-Trimethoprim] RASH Ciprofloxacin RASH Hydrocodone RASH Latex BLISTERS Paxil [Paroxetine Hcl] RASH Phenobarbital RASH Morphine NAUSEA ONLY pill form makes stomach upset Social History: Social History Socioeconomic History Marital status: Single Spouse name: Not on file Number of children: 2 Years of education: Not on file Highest education level: Not on file Occupational History Employer: [employer] Tobacco Use Smoking status: Never Smoker Smokeless tobacco: Never Used Substance and Sexual Activity Alcohol use: No Drug use: No Sexual activity: Not Currently Partners: Female Other Topics Concern Not on file Social History Narrative Not on file Family History: Family History Problem Relation Age of Onset Cancer Mother breast cancer age 57 Cancer-Breast Mother Cancer Maternal Grandmother breast cancer 70s Cancer-Breast Maternal Grandmother Cancer-Prostate Father Stroke Father Hypertension Sister Diabetes Sister Diabetes Paternal Grandmother REVIEW OF SYSTEMS: CONSTITUTIONAL: Negative unless stated in HPI EYES: Negative unless stated in HPI ENT: Negative unless stated in HPI RESPIRATORY: Negative unless stated in HPI CARDIOVASCULAR: Negative unless stated in HPI GI: Negative unless stated in HPI : Negative unless stated in HPI MUSCULO-SKELETAL: Negative unless stated in HPI SKIN: Negative unless stated in HPI ENDOCRINE: Negative unless stated in HPI HEMATOLOGIC: Negative unless stated in HPI ECOG 2 Physical Exam: BP 104/60 (BP Source: Arm, Left Upper, Patient Position: Sitting) | Pulse 120 | Temp 36.8 C (98.2 F) (Temporal) | Resp 16 | Ht 160 cm (63") | Wt 77.1 k g (170 lb) | LMP 12/08/2019 | SpO2 100% | BMI 30.11 kg/m GENERAL APPEARANCE: Appears healthy. Alert; in no acute distress. Pleasant. HEENT: Unremarkable. No tenderness or masses noted. NECK: Neck supple. No tenderness. No adenopathy. . LUNGS: Chest symmetrical. Good diaphragmatic excursion. Lungs clear; normal tye th sounds. CARDIOVASCULAR: RRR. Heart sounds normal. ABDOMEN: Abdomen soft, non-tender. No masses, organomegaly, or hernia. No clini pau evidence of ascites. Umbilical access point for urinary catheterization and left colostomy PELVIC: deferred EXTREMITIES: Extremities normal. No joint deformities, edema, or skin discolorat ion. Station and gait normal. SKIN: Skin color, texture, turgor normal. No rashes or lesions. LYMPH NODES: No palpable supraclavicular or inguinal lymph nodes. CBC w/Diff Lab Results Component Value Date/Time WBC 20.1 (H) 12/26/2019 02:50 AM RBC 2.73 (L) 12/26/2019 02:50 AM HGB 7.7 (L) 12/26/2019 02:50 AM HCT 23.9 (L) 12/26/2019 02:50 AM MCV 87.7 12/26/2019 02:50 AM MCH 28.3 12/26/2019 02:50 AM MCHC 32.3 12/26/2019 02:50 AM RDW 18.4 (H) 12/26/2019 02:50 AM PLTCT 507 (H) 12/26/2019 02:50 AM MPV 8.1 12/26/2019 02:50 AM Lab Results Component Value Date/Time NEUT 87 (H) 12/26/2019 02:50 AM ANC 17.65 (H) 12/26/2019 02:50 AM LYMA 7 (L) 12/26/2019 02:50 AM ALC 1.34 12/26/2019 02:50 AM DALE 4 12/26/2019 02:50 AM AMC 0.76 12/26/2019 02:50 AM EOSA 1 12/26/2019 02:50 AM AEC 0.14 12/26/2019 02:50 AM BASA 1 12/26/2019 02:50 AM ABC 0.20 12/26/2019 02:50 AM Comprehensive Metabolic Profile Lab Results Component Value Date/Time NA 142 12/26/2019 02:50 AM K 4.2 12/26/2019 02:50 AM CL 121 (H) 12/26/2019 02:50 AM CO2 8 (LL) 12/26/2019 02:50 AM GAP 13 (H) 12/26/2019 02:50 AM BUN 24 12/26/2019 02:50 AM CR 1.22 (H) 12/26/2019 02:50 AM GLU 172 (H) 12/26/2019 02:50 AM Lab Results Component Value Date/Time CA 8.4 (L) 12/26/2019 02:50 AM ALBUMIN 2.6 (L) 12/26/2019 02:50 AM TOTPROT 6.8 12/26/2019 02:50 AM ALKPHOS 116 (H) 12/26/2019 02:50 AM AST 18 12/26/2019 02:50 AM ALT 24 12/26/2019 02:50 AM TOTBILI 0.2 (L) 12/26/2019 02:50 AM GFR 47 (L) 12/26/2019 02:50 AM GFRAA 57 (L) 12/26/2019 02:50 AM Other labs No results found for: ESR Lab Results Component Value Date/Time LDH 153 12/22/2019 10:19 AM 12/23/19 MRI Pelvis:IMPRESSION 1. Complex multilocular left ovarian cyst. The [...] the past 3 years suggesting reactive adenopathy. ASSESSMENT/PLAN: Tam Lozano is a 49 y.o. female with bilateral pelvic masses and abnormal uterine bleeding. Abnormal uterine bleeding- discussed that we should go to OR for D+C hysteroscop y when the patient is medically stable, with reports of blood glucose in the 400 s and recent UTI, she would not be a candidate for even a minor procedure due to risk of infection/sepsis. After the visit her WBC resulted elevated and we call ed the patient 12/21 and advised to call her PCP and plan workup or admission to hospital given high risk for complicated UTI. She did not present for care and t chilo called our office again on 12/23 and said she had gone to urgent care and req uested direct admission to . We advised the patient that she should seek care urgently at her facility where she was just treated for sepsis and if she still wants transfer to she can request a transfer. However, I cannot directly admi t a patient to internal medicine service. She could also present to ER. Pelvic Masses- stable on recent MRI -unchanged from multiple prior imaging studi es. Not concerning for malignancy. Overall, if the patient is cleared from an infectious point of view and her DM i s controlled, then we can take her to OR for EUA, and D+C hysteroscopy, possible polypectomy for further work up and diagnosis. This patient is not a good ronaldo date for further pelvic surgery given her extensive poorly controlled co-morbidi ties and extesnive prior pelvic surgery. Even if malignancy or EIN, I would favo r management with hormone over surgery. Will await results. Briana Maciel MD * Joselyn Mosquera RN - 12/22/2019 9:00 AM CDT Port was accessed With good blood return and drawn blood as ordered. Flushed with 20 ml saline and 5ml heparin. De-accessed and sent patient home. Mary Mosquera RN documented in this encounter Plan of Treatment Care Team Description Date Type Specialty Cody Tirado MD [address] [place], [place] [id number] Pressure ulcer of sacral region, stage 3 (HCC) 02/15/2020 Hospital Encounter Kourtney HarveyTASH [id number] [place], [place] [id number] 02/15/2020 Anesthesia Event Cody Tirado MD [address] [place], [place] [id number] EXCISION SACRAL PRESSURE ULCER - PREPARA TION [...] Name Priority Date/Time Associated Diag nosis HC INHIBIN B Routine 12/22/2019 Pelvic mass 10:19 AM CDT HC CA 19-9 Routine 12/22/2019 Other abnormal [...] 10:19 AM CDT without complication, unspecified whether tank terminal gauger insulin use (HCC) Pelvic mass HC CEA(CARCINOEMBRYONIC [...] on 12/24/2019 7:04 AM. Performing Organization Address [facility]/Replaced By [facility] one Number KU RAD RESULTS * LDH-LACTATE DEHYDROGENASE (12/22/2019 10:19 AM CDT) Pathologist [facility] Lactate 153 100 - 210 U/L [facility] Dehydrogenase Specimen Blood Performing Organization Address [facility]/Replaced By [facility] one Number [facility] MAIN [facility] [address] [place] [address] * TYPE & SCREEN (NOT CROSSMATCH ELIGIBLE) (12/22/2019 10:19 AM CDT) Pathologist [facility] Record Check FOUND [facility] ABO/RH(D) A POS [facility] Antibody Screen POS [facility] Antibody Anti-E, [facility] Indentification ANTIBODY PRESENT, UNDETERMI MAK SPECIFICITY, FARIDA, Broad POS [facility] MAIN [facility] Spectrum Sirena FARIDA, Anti-IgG POS [facility] MAIN [facility] Sirena FARIDA, NEG [facility] Anti-Complement Antibody Eluted Anti-E, [facility] Antigen E antigen NEG, [facility]IN [facility] Information Specimen Blood, venous - Blood Performing Organization Address [facility]/Replaced By [facility] one Number [facility] MAIN [facility] [address] [place] [address] * INHIBIN A & B TUMOR MARKER (12/22/2019 10:19 AM CDT) Inhibin B <10 REFERENCE LAB Unit: pg/mL REFERENCE VALUE - <139 (Premenopausal, Follicular) <92 (Premenopausal, Luteal) <10 (Postmenopausal) ADDITIONAL INFORMATION The testing method is a manual immunoenzymatic assay manufactured by [employer] Values obtained with different assay methods or kits may be different and cannot be used interchangeably. If this test is being ordered as a tumor marker, results cannot be interpreted as absolute evidence for the presence or absence of malignant disease. This test was developed and its performance characteristics determined by [facility] in a manner consistent with CLIA requirements. This test has not been cleared or approved by the U.S. Food and Drug Administration. [facility], [address] [place], [place] [id number] Inhibin-A 2.0 REFERENCE LAB (Dimer) Comment: Unit: pg/mL REFERENCE VALUE - <97.5 (Premenopausal) <2.1 (Postmenopausal) ADDITIONAL INFORMATION This test has been modified from the integrated specialist's instructions. Its performance characteristics were determined by [facility] in a manner consistent with CLIA requirements. This test has not been cleared or approved by the U.S. Food and Drug Administration. The testing method is an immunoenzymatic assay manufactured by [employer] and performed on the [employer] DxI 800. Values obtained with different assay methods or kits may be different and cannot be used interchangeably. Test results cannot be interpreted as absolute evidence for the presence or absence of malignant disease. Inhibin A values are not interpretable in females for the investigation of malignant disease. [facility], [address] [place] [address] Specimen Blood Performing Organization Address City/State/Zipcode Ph one Number REFERENCE LAB REFERENCE LAB See results for address. * CBC AND DIFF (12/22/2019 10:19 AM [...] Ph one Number [facility] MAIN LAB [address] [place] [address] * COMPREHENSIVE METABOLIC PANEL (12/22/2019 10:19 AM [...] 39 (L) >60 mL/min MAIN LAB Comment: Brazilian The eGFR is not validated f or use in drug dosing adjustments. Continue to use estimated creatinine clearance per dosing reference text. Please contact the Clinical Pharmacist for questions. eGFR 48 (L) >60 mL/min MAIN LAB Brazilian Comment: The eGFR is not validated for use in drug dosing adjustments. Continue to use estimated creatinine clearance per dosing reference text. Please contact the Clinical Pharmacist for questions. Specimen Blood Performing Organization Address [facility] Ph one Number MAIN LAB [address] [place] [address] * ALPHA FETO PROTEIN (AFP) (12/22/2019 10:19 AM CDT) Alpha Feto 1.0 0.0 - 15.0 NG/ML MAIN LAB Protein Specimen Blood Performing Organization Address [facility]/Replaced By [facility] one Number MAIN LAB [address] [place] [address] * BETA-HCG (12/22/2019 10:19 AM CDT) Beta-HCG,Serum <1 <5 U/L MAIN LAB Specimen Blood Performing Organization Address [facility]/Replaced By [facility] one Number MAIN LAB [address] [place] [address] * CEA(CARCINOEMBRYONIC AG) (12/22/2019 10:19 AM CDT) CEA 2.6 <3.0 NG/ML MAIN LAB Specimen Blood Performing Organization Address [facility] Ph one Number MAIN LAB [address] [place] [address] * CA19.9 (12/22/2019 10:19 AM CDT) CA 19-9 17 <35 U/ml MAIN LAB Specimen Blood Performing Organization Address [facility] Ph one Number MAIN LAB [address] [place] [address] * CA125 (12/22/2019 10:19 AM CDT) CA-125 51 (H) <35 U/ml MAIN LAB Specimen Blood Performing Organization Address City/[facility] Ph one Number MAIN LAB [address] [place] [address] * HEMOGLOBIN A1C (12/22/2019 10:19 AM CDT) Hemoglobin A1C 8.1 (H) 4.0 - 6.0 % [facility] MAIN LAB Comment: The ADA recommends that most patients with type 1 and type 2 diabetes maintain an A1c level <7%. Specimen Blood Performing Organization Address [facility] Ph one Number MAIN LAB [address] [place] [address] documented in this encounter Visit Diagnoses Diagnosis Pressure ulcer of sacral region, stage 3 (HCC) Diagnosis Pelvic mass Abdominal or pelvic swelling, mass or l ump, unspecified site Type 2 diabetes mellitus without compli cation, unspecified whether tank terminal gauger insulin use (HCC) Other abnormal tumor markers Other abnormal tumor markers Recurrent UTI Urinary tract infection, site not speci fied Paraplegia (HCC) Paraplegia History of urinary diversion procedure ([place] Pouch) Abnormal uterine bleeding Unspecified disorder of menstruation an d other abnormal bleeding from female genital tract Adnexal mass Other specified symptom associated with female genital organs documented in this encounter Administered Medications [...]
--- OUTSIDE RECORDS SUMMARY | 2020-02-11 00:57 | XMS REPORT | Encounter Summary ---
Author Author [facility] Organization [facility] Address Unknown Phone Unavailable Care Team Providers Care Station Usher Name Role Phone Pb Ibrahim MD Unavailable [...] Description Date Type Department Briana Maciel MD [address] [place] [address] Labs Only 12/23/2019 Telephone [facility] [address] [place] [address] Social History Date Tobacco Use [...] Date Type Specialty Cody Tirado MD [address] [place] [address] [phone] Pressure ulcer of sacral region, stage 3 (HCC) 02/15/2020 Hospital Encounter Kourtney Harvey APRN [address] [place] [address] [phone] 02/15/2020 Anesthesia Event Cody Tirado MD [address] [place] [address] [phone] EXCISION SACRAL PRESSURE ULCER - PREPARA TION [...]
--- OUTSIDE RECORDS SUMMARY | 2020-02-11 00:58 | XMS REPORT | Encounter Summary ---
Author Author [facility] Organization [facility] Address Unknown Phone Unavailable Care Team Providers Care Urban Design Consultant Name Role Phone Pb Ibrahim MD [...] Unavailable Hui Arndt RN Unavailable Unavailable Jessica Whtie LPN Unavailable Unavailable Kathy Gifford RN Unavailable Unavailable Milo Jj MD PCP Reason for Visit * Reason Comments Navigation Assessment Encounter Details Care Team Description Date Type Department Briana Maciel MD [address] [place] [address] Navigation Assessment 11/30/2019 Telephone [facility] [place] [address] [place] [address] Social History Date Tobacco Use Types Packs/Day [...] Contact Name & Number: Yesenia Menjivar @ [phone] PCP: Dr. Milo Jj Other: Urology: Dr. Milo Louis () Location of Films: PACS Location of Pathology: N/A History of Present Illness: Patient seen by AUTO MECHANIC on 10/02/19 for WWE. She had c/o v aginal bleeding for the past 2 months. AUTO MECHANIC exam WNL's Sonogram on 10/02/19 for abnormal [...] Date Type Specialty Cody Tirado MD [address] [place] [address] Pressure ulcer of sacral region, stage 3 (HCC) 02/15/2020 Hospital Encounter Kourtney Harvey APRN [id number] [place] [address] [phone] 02/15/2020 Anesthesia Event Cody Tirado MD [address] [place] [address] [phone] EXCISION SACRAL PRESSURE ULCER - PREPARA TION FOR MUSCLE/ MYOCUTANEOUS FLAP/ SKIN GRAFT CLOSURE 02/15/2020 Surgery documented as of this encounter Goals Goal Patient Associated Recent Progress Patient-Stat Aut hor Goal Type Problems ed? Resume normal activities Hospital Yes [facility], Uma, RN Improve wellness, "to get Hospital Yes Bowl es, better" CHARLIE Eaton documented as of this encounter Visit Diagnoses Not on filedocumented in this encounter Additional Health Concerns Resolved Time Infection Noted Time 12/27/2019 8:31 PM CDT MRSA 11/21/2015 3:59 PM CDT documented as of this encounter
--- OUTSIDE RECORDS SUMMARY | 2020-02-11 00:58 | XMS REPORT | Encounter Summary ---
Author Author [facility] Organization [facility] Address Unknown Phone Unavailable Care Team Providers Care Sas Programmer Analyst Name Role Phone Pb Ibrahim MD Unavailable [...] Care Team Description Date Type Department 10/02/2019 [facility] [address] [address] Social History Date Tobacco Use [...] Take 1 Tab by 0 mouth daily. 12/26/2019 bisacodyl (DULCOLAX) 10 Insert [...] (GG)) 15 with billion cell cpSP breakfast. 03/04/2016 12/26/2019 milk of magnesia (CONC) Take [...] Date Type Specialty Cody Tirado MD [address] [place], [place] [id number] Pressure ulcer of sacral region, stage 3 (HCC) 02/15/2020 Hospital Encounter Kourtney Harvey APRN [address] [place] [address] [phone] 02/15/2020 Anesthesia Event Cody Tirado MD [address] [place] [address] [phone] EXCISION SACRAL PRESSURE ULCER - PREPARA TION [...] PELVIS EXTERNAL Routine 10/02/2019 IMAGING 12:00 AM RECEIVING ROOM CLERK documented in this encounter Results * US PELVIS EXTERNAL IMAGING (10/02/2019 12:00 AM RECEIVING ROOM CLERK) Specimen Narrative Performed At This order has been auto finalized and does not contain a result. documented in this encounter Visit Diagnoses Not on filedocumented in this encounter Additional Health Concerns Resolved Time Infection Noted Time 12/27/2019 8:31 PM CDT MRSA 11/21/2015 3:59 PM CDT documented as of this encounter
--- OUTSIDE RECORDS SUMMARY | 2020-02-11 00:58 | XMS REPORT | Encounter Summary ---
Author Author [facility] Organization [facility] Address Unknown Phone Unavailable Care Team Providers Care Cable Reeler Name Role Phone Pb Ibrahim MD Unavailable [...] Care Team Description Date Type Department 11/24/2019 [facility] [address] [address] Social History Date Tobacco Use [...] 15 with billion cell cpSP breakfast. 10/19/2019 01/04/2020 medroxyPROGESTERone Take 10 mg by [...] Date Type Specialty Cody Tirado MD [address] [place], [place] [id number] [phone] Pressure ulcer of sacral region, stage 3 (HCC) 02/15/2020 Hospital Encounter Kourtney Harvey APRN [id number] [place], [place] [phone] 02/15/2020 Anesthesia Event Cody Tirado MD [address] [place], [place] [phone] EXCISION SACRAL PRESSURE ULCER - PREPARA TION FOR MUSCLE/ MYOCUTANEOUS FLAP/ SKIN GRAFT CLOSURE 02/15/2020 Surgery documented as of this encounter Goals Goal Patient Associated Recent Progress Patient-Stat Aut hor Goal Type Problems ed? Resume normal activities Hospital Yes Uma Burns RN Improve wellness, "to get Hospital Yes Kaylee es, better" Uma RN documented as of this encounter Procedures Comments [...]
--- OUTSIDE RECORDS SUMMARY | 2020-02-11 01:01 | XMS REPORT ---
Author Author Tam MCCRAY Organization [facility] Address [address] [place] [address] Care Team Providers Care Head Of Product Name Role Phone EDWARDO MCCRAY Unavailable PROBLEMS Type Condition ICD9-CM Code OUB59-KT Code Onset Dates Condition S tatus SNOMED Code Problem Paraplegia G82.20 Active 94252558 Problem Microalbuminuria R80.9 Active 312 530755 Problem Mixed hyperlipidemia E78.2 Active 111974040 Problem History of urinary diversion procedure Z98.890 Active 876300421 Problem Colostomy present Z93.3 Active 30 9402716 Problem Type 2 diabetes mellitus with other diabetic kid steve complication E11.29 Active 63106902 Problem Environmental allergies Z91.09 Active 808563199 Problem Abnormal uterine bleeding N93.9 Acti ve [id number] Problem intermediate (current) use of insulin Z79.4 Active 865931974 Problem Blood loss anemia D50.0 Active 41 0340275 ALLERGIES No Information ENCOUNTERS Encounter Location Date Diagnosis [facility] [address] [facility] [id number] [address] [place] [phone] 24 Dec, 2019 [facility] [address] [facility] [id number] [address] [place] [phone] 18 Dec, 2019 [facility] [address] [facility] [id number] [address] [place] [phone] 15 Dec, 2019 [facility] [address] [facility] [id number] [address] [place] [phone] 12 Dec, 2019 Type 2 diabetes mellitus wit h other diabetic kidney complication E11.29 ; 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 ; Pelvic pain R10.2 and Blood loss anemia D50.0 [facility] [address] [facility] [id number] [address] [place] [phone] Dec, [facility] [address] [id number] [address] [place] [phone] Dec, [facility] [address] [id number] [address] [place] [phone] Dec, [facility] [address] [id number] [address] [place] [phone] Dec, [facility] [address] [id number] [address] [place] [phone] November, Dysuria R30.0 and Fever, uns pecified fever cause R50.9 [facility] [address] [id number] [address] [place] [address] November, Blood loss anemia D50.0 [facility] [address] [id number] [address] [place] [phone] November, [facility] [address] [id number] [address] [place] [phone] November, [facility] [address] [id number] [address] [place] [phone] November, [facility] [address] [id number] [address] [place] [phone] November, Anemia due to acute blood lo ss D62 [facility] [address] [id number] [address] [place] [phone] November, [facility] [address] [facility] [id number] [address] [place] [phone] November, [facility] [address] [id number] [address] [place] [phone] November, [facility] [address] [facility] [id number] [address] [place] [address] November, Type 2 diabetes mellitus wit hout complication, unspecified senior care insulin use status E11.9 [facility] [address] [id number] [address] [place] [phone] November, Anemia due to acute blood lo ss D62 [facility] [address] [facility] [id number] [address] [place] [phone] November, Blood loss anemia D50.0 [facility] [address] [facility] [id number] [address] [place] [phone] November, Blood loss anemia D50.0 [facility] [address] [facility] [id number] [address] [place] [phone] Oct, Blood loss anemia D50.0 [facility] [address] [facility] [id number] [address] [place] [phone] Oct, Ovarian mass N83.9 [place] [address] [facility] [id number] [address] [place] [phone] Oct, Blood loss anemia D50.0 and Difficult intravenous access Z78.9 [place] [address] [facility] [id number] [address] [place] [phone] Oct, Anemia due to acute blood lo ss D62 and Abnormal uterine bleeding N93.9 [facility] [address] [facility] [id number] [address] [place] [phone] Oct, Pedal edema R60.0 and Dizzin ess R42 [facility] [address] [facility] [id number] [address] [place] [address] Oct, [address] [id number] [address] Oct, Elevated CEA R97.0 [facility] [address] [facility] [id number] [address] [place] [address] Oct, Ovarian tumor D49.59 ; Type 2 diabetes mellitus without complications E11.9 and intermediate (current) use of insulin Z79.4 [facility] [address] [facility] [id number] [address] [place] [address] Oct, [address] [place] [address] Oct, [facility] [address] [facility] [id number] [address] [place] [address] Sep, [facility] [address] [facility] [id number] [address] [place] [address] Sep, Ovarian mass N83.9 [facility] [address] [facility] [id number] [address] [place] [address] Sep, Ovarian mass N83.9 ; Unspeci fied ovarian cyst, right side N83.201 and Unspecified ovarian cyst, left side N83.202 [facility] [address] [facility] [id number] [address] [place] [address] Sep, [place] [address] [place] [id number] [address] [place] [address] Sep, Abnormal uterine bleeding N9 3.9 and Well woman exam with routine gynecological exam Z01.419 [place] [address] [place] [id number] [address] [place] [address] Aug, [facility] [address] [place] [id number] [address] [place] [phone] Jul, Weakness R53.1 and Uncontrol led type 2 diabetes mellitus with hyperglycemia E11.65 [place] [address] [facility] [id number] [address] [place] [phone] May, [facility] [address] [place] [id number] [address] [place] [phone] May, [facility] [address] [facility] [id number] [address] [place] [phone] Mar, [facility] [address] [place] [id number] [address] [place] [phone] Mar, Type 2 diabetes mellitus wit hout complication, unspecified senior care insulin use status E11.9 and Urinary tract infection, site not specified N39.0 [facility] [address] [facility] [id number] [address] [place] [phone] Mar, [facility] [address] [facility] [id number] [address] [place] [address] Mar, [facility] [address] [facility] [id number] [address] [place] [address] Feb, [facility] [address] [facility] [id number] [address] [place] [address] Feb, Environmental allergies Z91. 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 ; Mixed hyperlipidemia E78.2 ; Colostomy present Z93.3 ; Family history of breast cancer Z80.3 and Encounter for immunization Z23 [facility] [address] [facility] [id number] [address] [place] [phone] Jan, [facility] [address] [facility] [id number] [address] [place] [phone] November, [facility] [address] [facility] [id number] [address] [place] [phone] Oct, [facility] [address] [facility] [id number] [address] [place] [phone] Oct, [facility] [address] [facility] [id number] [address] [place] [phone] Oct, [facility] [address] [facility] [id number] [address] [place] [phone] Oct, Type 2 diabetes mellitus wit hout complication, unspecified senior care insulin use status E11.9 [facility] [address] [facility] [id number] [address] [place] [address] Oct, Type 2 diabetes mellitus wit hout complications E11.9 and 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 [facility] [address] [facility] [id number] [address] [place] [phone] Oct, [facility] [address] [facility] [id number] [address] [place] [phone] 18 Aug, 2018 [facility] [address] [facility] [id number] [address] [place] [phone] 14 Aug, 2018 Acute cystitis with hematuri a N30.01 [facility] [address] [facility] [id number] [address] [place] [address] Jul, [place] [address] [facility] [id number] [address] [place] [address] Jul, DUB (dysfunctional uterine b leeding) N93.8 [place] [address] [facility] [id number] [address] [place] [phone] 12 May, 2018 Mixed hyperlipidemia E78.2 ; Microalbuminuria R80.9 and Acute pyelonephritis N10 [facility] [address] [facility] [id number] [address] [place] [address] May, Acute pyelonephritis N10 ; T ype 2 diabetes mellitus without complications E11.9 ; Microalbuminuria R80.9 and Recurrent UTI N39.0 [place] [address] [facility] [id number] [address] [place] [address] Jan, [facility] [address] [facility] [id number] [address] [place] [phone] Jan, Acute cystitis with hematuri a N30.01 [facility] [address] [facility] [id number] [address] [place] [address] November, Acute cystitis without hemat uria N30.00 [facility] [address] [facility] [id number] [address] [place] [address] November, [facility] [address] [facility] [id number] [address] [place] [address] November, 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 ; Recurrent UTI N39.0 ; Type 2 diabetes mellitus without complications E11.9 and 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 [place] [address] [facility] [id number] [address] [place] [address] Oct, Medicare annual wellness vis it, initial Z00.00 ; Type 2 diabetes mellitus without complication, unspecified senior care insulin use status E11.9 and Paraplegia G82.20 [place] [address] [id number] [address] [place] [address] Oct, [place] [address] [facility] [id number] [address] [place] [address] Sep, Type 2 diabetes mellitus wit hout complication, unspecified senior care insulin use status E11.9 [place] [address] [facility] [id number] [address] [place] [address] Sep, [place] [address] [facility] [id number] [address] [place] [address] Aug, Viral gastroenteritis A08.4 [place] [address] [id number] [address] [place] [address] Jul, Urinary incontinence without sensory awareness N39.42 and Paraplegia G82.20 [place] [address] [id number] [address] [place] [phone] Jul, [place] [address] [facility] [id number] [address] [place] [address] May, Skin ulcer, limited to break down of skin L98.491 and Type 2 diabetes mellitus without complication, unspecified senior care insulin use status E11.9 [place] [address] [id number] [address] [place] [phone] Feb, [place] [address] [facility] [id number] [address] [place] [phone] Feb, Type 2 diabetes mellitus wit hout complication, unspecified senior care insulin use status E11.9 [place] [address] [facility] [id number] [address] [place] [phone] Feb, [facility] [address] [facility] [id number] [address] [place] [phone] Jan, Type 2 diabetes mellitus wit hout complication, unspecified senior care insulin use status E11.9 and Recurrent UTI N39.0 [facility] [address] [facility] [id number] [address] [place] [phone] November, [facility] [address] [facility] [id number] [address] [place] [address] Oct, Type 2 diabetes mellitus wit hout complication, unspecified senior care insulin use status E11.9 [facility] [address] [facility] [id number] [address] [place] [phone] Oct, [facility] [address] [facility] [id number] [address] [place] [phone] Oct, [facility] [address] [facility] [id number] [address] [place] [phone] Oct, [facility] [address] [facility] [id number] [address] [place] [phone] Sep, Type 2 diabetes mellitus wit hout complication, unspecified rn long term care insulin use status E11.9 [facility] [address] [facility] [id number] [address] [place] [phone] Sep, Type 2 diabetes mellitus wit hout complication, unspecified rn long term care insulin use status E11.9 and Paraplegia G82.20 [facility] [id number] [id number] Sep, [facility] [address] [id number] [address] [place] [phone] Sep, [facility] [address] [facility] [id number] [address] [place] [phone] Aug, Recurrent UTI N39.0 [facility] [address] [facility] [id number] [address] [place] [address] Jul, Type 2 diabetes mellitus wit hout complication, unspecified rn long term care insulin use status E11.9 [facility] [address] [id number] [address] [place] [phone] Jun, Type 2 diabetes mellitus wit hout complication, unspecified rn long term care insulin use status E11.9 [facility] [address] [facility] [id number] [address] [place] [address] Jun, [facility] [address] [facility] [id number] [address] [place] [address] Jun, [facility] [address] [facility] [id number] [address] [place] [address] Jun, Recurrent UTI N39.0 [facility] [address] [facility] [id number] [address] [place] [address] May, Recurrent UTI N39.0 [facility] [address] [facility] [id number] [address] [place] [address] May, Recurrent UTI N39.0 and Post nasal drip R09.82 [facility] [address] [facility] [id number] [address] [place] [address] Apr, [facility] [address] [facility] [id number] [address] [place] [address] Mar, Avulsion of toenail, subsequ ent encounter S91.209D and Type 2 diabetes mellitus without complication, unspecified senior care insulin use status E11.9 [facility] [address] [facility] [id number] [address] [place] [address] 06 Mar, 2016 [facility] [address] [facility] [id number] [address] [place] [phone] 04 Mar, 2016 Bladder pain R39.89 ; Ingrow ing toenail of left foot L60.0 and Acute cystitis with hematuria N30.01 [facility] [address] [facility] [id number] [address] [place] [phone] Feb, Controlled type 2 diabetes m ellitus without complication, unspecified senior care insulin use status E11.9 [place] [id number] [facility] [id number] [address] [address] Jan, Recurrent UTI N39.0 [facility] [address] [facility] [id number] [address] [place] [address] Jan, Urinary tract infection, sit e not specified N39.0 and Hematuria, unspecified R31.9 [facility] [address] [facility] [id number] [address] [address] Dec, Urinary tract infection, sit e not specified N39.0 and Hematuria, unspecified R31.9 IMMUNIZATIONS No Known Immunizations SOCIAL HISTORY Never Assessed REASON FOR VISIT FYI only PLAN OF CARE VITAL SIGNS MEDICATIONS Unknown Medications RESULTS No Results PROCEDURES No Known procedures INSTRUCTIONS MEDICATIONS ADMINISTERED No Known Medications MEDICAL (GENERAL) HISTORY Type Description Date Medical History type II diabetes Medical History anemia Surgical History Kindey stone removal- left 2016 Surgical History Right kindey removal Surgical History Back Surgical History Bladder repair Surgical History 04/09/1990 Surgical History 08/01/1993 Surgical History Colostomy 12/2016 Surgical History uti that went septic was in for 5 days 0 11/12/2019 Hospitalization History Sepsis-[facility] 01/15/17 Hospitalization History UTI-[facility] 09/18/16 Hospitalization History Colostomy 12/2016 Hospitalization History spesis 10/2019
--- OUTSIDE RECORDS SUMMARY | 2020-02-11 01:03 | XMS REPORT | Continuity of Care Document ---
Demographics Preferred Language Unknown Marital Status Unknown [employer]ology Affiliation Unknown Race Unknown Ethnic Group Unknown Author Organization Unknown Address Unknown Phone Unavailable Allergies Active Description Code Type Severity Reaction Onset Reported/Identified Relationship to Patient Clinical Status Yes latex [id number] Drug Allergy Severe N/A 04/02/2014 Yes ciprofloxacin [id number] Ubaldo g Allergy Mild N/A 04/02/2014 Yes hydrocodone [id number] Drug Aller gy Mild N/A 04/02/2014 Yes paroxetine [id number] Drug Allerg y Mild N/A 04/02/2014 Yes phenobarbital [id number] Ubaldo g Allergy Mild N/A 04/02/2014 Yes sulfamethoxazole [id number] Drug Allergy Mild N/A 04/02/2014 Yes trimethoprim [id number] Drug Allergy Mild N/A 04/02/2014 Yes oxycodone [id number] Drug Allergy Unknown RASH 12/31/2016 Yes morphine [id number] Drug Allergy Unknown N/A 12/25/2019 Medications There is no data. Problems Date [...] 599. 0 URIN TRACT INFECTION NOS 07/29/2014 DYATON EISENBERG MD Ot 787. 01 NAUSEA WITH [...] rsonal history of urinary (tract) infections JENN RAYREY S 09/19/2015 Ot N39.0 09/23/2015 STEPHANIE ARRIOLA MD Ot Z51.81 09/23/2015 STEPHANIE ARRIOLA MD Ot [...] INFECTION, SITE NOT SPECIF 09/08/2016 STEPHANIE ARRIOLA MD Ot Z51.81 ENCOUNTER FOR THERAPEUTIC DRUG LEVEL [facility]SON 09/08/2016 ZEINAB ROJAS, STEPHANIE Reagan Ot Z79.2 ALF (CURRENT) USE OF ANTIBIOTICS 09/08/2016 Ot Z51.81 ENC OUNTER FOR THERAPEUTIC DRUG LEVEL MON 09/08/2016 Ot Z79.2 ALF (CURRENT) USE OF ANTIBIOTICS 09/08/2016 Ot R31.9 LANCE TURIA, UNSPECIFIED 09/08/2016 ZAINAB ROJAS, EDWARDO Barrios Ot N39 .0 URINARY TRACT INFECTION, SITE NOT SPECIF 09/08/2016 CITLALY, LEE GAUGE OPERATOR Ot E11.9 TYPE 2 DIABETES MELLITUS WITHOUT COMPLIC 09/08/2016 CITLALY, LEE GAUGE OPERATOR Ot G82.20 PARAPLEGIA, UNSPECIFIED 09/08/2016 CITLALY, LEE GAUGE OPERATOR Ot N39.0 URINARY TRACT INFECTION, SITE NOT SPECIF 09/08/2016 CITLALY, LEE GAUGE OPERATOR Ot Z79.84 ALF (CURRENT) USE OF ORAL HYPOGLYC 09/08/2016 CITLALY, LEE GAUGE OPERATOR Ot Z79.899 OTHER SHOE PACKER (CURRENT) DRUG THERAPY 09/08/2016 CITLALY, LEE GAUGE OPERATOR Ot Z93.50 UNSPECIFIED CYSTOSTOMY STATUS 09/11/2016 CITLALY, LEE GAUGE OPERATOR Ot E11.9 TYPE 2 DIABETES MELLITUS WITHOUT COMPLIC 09/11/2016 CITLALY, LEE GAUGE OPERATOR Ot G82.20 PARAPLEGIA, UNSPECIFIED 09/11/2016 CITLALY, LEE GAUGE OPERATOR Ot N39.0 URINARY TRACT INFECTION, SITE NOT SPECIF 09/11/2016 CITLALY, LEE GAUGE OPERATOR Ot Z79.84 SHOE PACKER (CURRENT) USE OF ORAL HYPOGLYC 09/11/2016 CITLALY, LEE GAUGE OPERATOR Ot Z79.899 OTHER ALF (CURRENT) DRUG THERAPY 09/11/2016 CITLALY, LEE GAUGE OPERATOR Ot Z93.50 UNSPECIFIED CYSTOSTOMY STATUS 09/14/2016 CITLALY, LEE GAUGE OPERATOR Ot E11.9 TYPE 2 DIABETES MELLITUS WITHOUT COMPLIC 09/14/2016 CITLALY, LEE GAUGE OPERATOR Ot G82.20 PARAPLEGIA, UNSPECIFIED 09/14/2016 CITLALY, LEE GAUGE OPERATOR Ot N39.0 URINARY TRACT INFECTION, SITE NOT SPECIF 09/14/2016 CITLALY, LEE GAUGE OPERATOR Ot Z79.84 ALF (CURRENT) USE OF ORAL HYPOGLYC 09/14/2016 CITLALY, LEE GAUGE OPERATOR Ot Z79.899 OTHER SHOE PACKER (CURRENT) DRUG THERAPY 09/14/2016 LEE BOUCHER BHAVYA Ot Z93.50 UNSPECIFIED CYSTOSTOMY STATUS 09/21/2016 LEON SOLIS MD Ot E11 .9 TYPE 2 DIABETES MELLITUS WITHOUT COMPLIC 09/21/2016 LEON SOLIS MD Ot E66 .9 OBESITY, UNSPECIFIED 09/21/2016 LEON SOLIS MD, Ot G82.20 PARAPLEGIA, UNSPECIFIED 09/21/2016 LEON SOLIS MD, Ot K59 .9 FUNCTIONAL INTESTINAL DISORDER, UNSPECIF 09/21/2016 LEON SOLIS MD Ot L30 .4 ERYTHEMA INTERTRIGO 09/21/2016 LEON SOLIS MD Ot L89.152 PRESSURE ULCER OF SACRAL REGION, STAGE 2 09/21/2016 LEON SOLIS MD, Ot N39 .0 URINARY TRACT INFECTION, SITE NOT SPECIF 09/21/2016 LEON SOLIS MD Ot N99.531 INFECTION OF CONTINENT STOMA OF URINARY 09/21/2016 LEON SOLIS MD Ot R19 .7 DIARRHEA, UNSPECIFIED 09/21/2016 LEON SOLIS MD Ot Z68.28 BODY MASS INDEX (BMI) 28.0-28.9, ADULT 09/21/2016 LEON SOLIS MD Ot Z79 .4 ALF (CURRENT) USE OF INSULIN 09/21/2016 LEON SOLIS MD, Ot Z85.42 PERSONAL HISTORY OF MALIGNANT NEOPLASM [...] INFECTION OF CONTINENT STOMA OF URINARY 09/24/2016 BLAIRE TOBIAS DO Ot Z79.4 ALF (CURRENT) USE OF INSULIN 09/24/2016 BLAIRE TOBIAS DO Ot Z79.84 SHOE PACKER (CURRENT) USE OF ORAL HYPOGLYC 09/24/2016 BLAIRE [...] INFECTION, SITE NOT SPECIF 11/07/2016 EDWARDO MCCRAY MD, Ot N39 .0 URINARY [...] MON 12/28/2016 STEPHANIE ARRIOLA MD, Ot Z79.2 SHOE PACKER (CURRENT) USE OF ANTIBIOTICS 12/28/2016 Ot Z51.81 ENC OUNTER FOR THERAPEUTIC DRUG LEVEL MON 12/28/2016 Ot Z79.2 SHOE PACKER (CURRENT) USE OF ANTIBIOTICS 12/28/2016 Ot R31.9 LNACE TURIA, UNSPECIFIED 12/28/2016 EDWARDO LAMB MD Ot N39 .0 URINARY TRACT INFECTION, SITE NOT SPECIF 12/28/2016 EDWARDO MCCRAY MD Ot N39 .0 URINARY TRACT INFECTION, SITE NOT SPECIF 12/28/2016 EWDARDO MCCRAY MD Ot N39 .0 URINARY TRACT INFECTION, SITE NOT SPECIF 12/28/2016 EDWARDO MCCRAY MD Ot N39 .0 URINARY TRACT INFECTION, SITE NOT SPECIF 12/28/2016 EDWARDO MCCRAY MD Ot N39 .0 URINARY TRACT INFECTION, SITE NOT SPECIF 12/31/2016 Ot N39.0 URIN UNRULY TRACT INFECTION, SITE NOT SPECIF 12/31/2016 STEPHANIE ARRIOLA MD, Ot Z51.81 ENCOUNTER FOR THERAPEUTIC DRUG LEVEL MON 12/31/2016 STEPHANIE ARRIOLA MD Ot Z79.2 ALF (CURRENT) USE OF ANTIBIOTICS 12/31/2016 Ot Z51.81 ENC OUNTER FOR THERAPEUTIC DRUG LEVEL MON 12/31/2016 Ot Z79.2 ALF (CURRENT) USE OF ANTIBIOTICS 12/31/2016 Ot R31.9 LANCE TURIA, UNSPECIFIED 12/31/2016 ZAINAB ROJAS, EDWARDO Barriso Ot N39 .0 URINARY TRACT INFECTION, SITE [...] B Ot G82.2 0 PARAPLEGIA, UNSPECIFIED 01/06/2017 KIRBY CEVALLOS DO B Ot L89.1 59 PRESSURE ULCER OF SACRAL REGION, UNSPECI 01/06/2017 KIRBY CEVALLOS DO B Ot R19.7 DIARRHEA, UNSPECIFIED 01/06/2017 JACQUE CEVALLOS DOIC B Ot S24.102S UNSP INJURY AT T2-T6 LEVEL OF THORACIC S 01/06/2017 KIRBY CEVALLOS DO B Ot Z79.8 4 ALF (CURRENT) USE OF ORAL HYPOGLYC 01/06/2017 KIRBY [...] SPECIF 01/18/2017 GERALD CRYSTAL MD Ot Z79.4 ALF (CURRENT) USE OF INSULIN 01/18/2017 GERALD CRYSTAL [...] URINARY TRACT INFECTION, SITE NOT SPECIF 03/15/2017 BEKA DOTY Ot N20.0 CALCULUS OF KIDNEY 03/15/2017 BEKA DOTY Ot N28.1 CYST OF KIDNEY, ACQUIRED 03/15/2017 BEKA DOTY Ot N30.9 1 CYSTITIS, UNSPECIFIED WITH HEMATURIA 03/15/2017 BEKA DOTY Ot Z90.5 ACQUIRED ABSENCE OF KIDNEY 03/25/2017 BEKA DOTY Ot N20.0 CALCULUS OF KIDNEY 03/25/2017 BEKA DOTY Ot N28.1 CYST OF KIDNEY, ACQUIRED 03/25/2017 BEKA DOTY D Ot N30.9 1 CYSTITIS, UNSPECIFIED WITH HEMATURIA 03/25/2017 BEKA DOTY Ot Z90.5 ACQUIRED ABSENCE OF KIDNEY 04/05/2017 BEKA DOTY Ot N20.0 CALCULUS OF KIDNEY 04/05/2017 BEKA DOTY Ot N28.1 CYST OF KIDNEY, ACQUIRED 04/05/2017 BEKA DOTY Ot N30.9 1 CYSTITIS, UNSPECIFIED WITH HEMATURIA 04/05/2017 BEKA DOTY Ot Z90.5 ACQUIRED ABSENCE OF KIDNEY 04/12/2017 BEKA DOTY Ot N20.0 CALCULUS OF KIDNEY 04/12/2017 BEKA DOTY Ot N28.1 CYST OF KIDNEY, ACQUIRED 04/12/2017 BEKA DOTY Ot N30.9 1 CYSTITIS, UNSPECIFIED WITH HEMATURIA 04/12/2017 BEKA DOTY Ot Z90.5 ACQUIRED ABSENCE OF KIDNEY 07/05/2017 LINSEYADEOLA R LEAD ETL DEVELOPER Ot B37.89 OTHER SITES OF CANDIDIASIS 07/05/2017 LINSEYADEOLA R LEAD ETL DEVELOPER Ot L89.133 PRESSURE ULCER OF RIGHT LOWER BACK, STAG 07/25/2017 LINSEY ADEOLA R LEAD ETL DEVELOPER Ot B37.89 OTHER SITES OF CANDIDIASIS 07/25/2017 LINSEY ADEOLA R LEAD ETL DEVELOPER Ot L89.133 PRESSURE ULCER OF RIGHT LOWER BACK, STAG 08/08/2017 LINSEY ADEOLA R LEAD ETL DEVELOPER Ot B37.89 OTHER SITES OF CANDIDIASIS 08/08/2017 LINSEY, ADEOLA R LEAD ETL DEVELOPER Ot L89.133 PRESSURE ULCER OF RIGHT LOWER BACK, STAG 08/13/2017 LINSEY, ADEOLA R LEAD ETL DEVELOPER Ot B37.89 OTHER SITES OF CANDIDIASIS 08/13/2017 LINSEY, ADEOLA R LEAD ETL DEVELOPER Ot L89.133 PRESSURE ULCER OF RIGHT LOWER BACK, STAG 08/28/2017 LINSEY ADEOLA R LEAD ETL DEVELOPER Ot B37.89 OTHER SITES OF CANDIDIASIS 08/28/2017 LINSEY ADEOLA R LEAD ETL DEVELOPER Ot L89.133 PRESSURE ULCER OF RIGHT LOWER BACK, STAG 09/29/2017 LEE BOUCHER Ot E11.9 TYPE 2 DIABETES MELLITUS WITHOUT COMPLIC 09/29/2017 LEE BOUCHER Ot N39.0 URINARY TRACT INFECTION, SITE NOT SPECIF 09/29/2017 LEE BOUCHER Ot R42 DIZZINESS AND GIDDINESS 09/29/2017 LEE BOUCHER Ot Z79.4 SHOE PACKER (CURRENT) USE OF INSULIN 09/29/2017 LEE BOUCHERP Ot Z85.42 PERSONAL HISTORY OF MALIGNANT NEOPLASM O 09/29/2017 LEE BOUCHER Ot Z87.442 PERSONAL HISTORY OF URINARY CALCULI 09/29/2017 CITLALY, LEE GAUGE OPERATOR Ot Z87.59 PERSONAL HISTORY OF COMP OF PREG, CHLDBR 09/29/2017 CITLALY, LEE GAUGE OPERATOR Ot Z87.828 PERSONAL HISTORY OF OTH (HEALED) PHYSICA 09/29/2017 CITLALY, LEE GAUGE OPERATOR Ot Z88.1 ALLERGY STATUS TO OTHER ANTIBIOTIC AGENT 09/29/2017 CITLALY, LEE GAUGE OPERATOR Ot Z88.2 ALLERGY STATUS TO SULFONAMIDES STATUS 09/29/2017 CITLALY, LEE GAUGE OPERATOR Ot Z88.6 ALLERGY STATUS TO ANALGESIC AGENT STATUS 09/29/2017 CITLALY, LEE GAUGE OPERATOR Ot Z91.040 LATEX ALLERGY STATUS 10/01/2017 CITLALY, LEE GAUGE OPERATOR Ot E11.9 TYPE 2 DIABETES MELLITUS WITHOUT COMPLIC 10/01/2017 CITLALY, LEE GAUGE OPERATOR Ot N39.0 URINARY TRACT INFECTION, SITE NOT SPECIF 10/01/2017 CITLALY, LEE GAUGE OPERATOR Ot R42 DIZZINESS AND GIDDINESS 10/01/2017 CITLALY, LEE GAUGE OPERATOR Ot Z79.4 SHOE PACKER (CURRENT) USE OF INSULIN 10/01/2017 CITLALY, LEE GAUGE OPERATOR Ot Z85.42 PERSONAL HISTORY OF MALIGNANT NEOPLASM O 10/01/2017 CITLALY, LEE GAUGE OPERATOR Ot Z87.442 PERSONAL HISTORY OF URINARY CALCULI 10/01/2017 CITLALY, LEE GAUGE OPERATOR Ot Z87.59 PERSONAL HISTORY OF COMP OF PREG, CHLDBR 10/01/2017 CITLALY, LEE GAUGE OPERATOR Ot Z87.828 PERSONAL HISTORY OF OTH (HEALED) PHYSICA 10/01/2017 CITLALY, LEE GAUGE OPERATOR Ot Z88.1 ALLERGY STATUS TO OTHER ANTIBIOTIC AGENT 10/01/2017 CITLALY, LEE GAUGE OPERATOR Ot Z88.2 ALLERGY STATUS TO SULFONAMIDES STATUS 10/01/2017 CITLALY, LEE GAUGE OPERATOR Ot Z88.6 ALLERGY STATUS TO ANALGESIC AGENT STATUS 10/01/2017 CITLALY, LEE GAUGE OPERATOR Ot Z91.040 LATEX ALLERGY STATUS 03/24/2019 Ot N39.0 URIN UNRULY TRACT INFECTION, SITE NOT SPECIF 03/24/2019 STEPHANIE ARRIOLA MD Ot Z51.81 ENCOUNTER FOR THERAPEUTIC DRUG LEVEL Sat03/24/2019 STEPHANIE ARRIOLA MD Ot Z79.2 ALF (CURRENT) USE OF ANTIBIOTICS 03/24/2019 Ot Z51.81 ENC OUNTER FOR THERAPEUTIC DRUG LEVEL Sat03/24/2019 Ot Z79.2 ALF (CURRENT) USE OF ANTIBIOTICS 03/24/2019 Ot R31.9 [...] ACQUIRED ABSENCE OF KIDNEY 03/24/2019 ADEOLA STILES LEAD ETL DEVELOPER Ot B37.89 OTHER SITES OF CANDIDIASIS 03/24/2019 ADEOLA STILES LEAD ETL DEVELOPER Ot L89.133 PRESSURE ULCER OF RIGHT LOWER BACK, STAG 03/24/2019 ADEOLA STILES LEAD ETL DEVELOPER Ot B37.89 OTHER SITES OF CANDIDIASIS 03/24/2019 ADEOLA STILES LEAD ETL DEVELOPER Ot L89.133 PRESSURE ULCER OF RIGHT [...] OBJECT(S), NEC, 04/05/2019 LEE BOUCHER Ot Z79.4 SHOE PACKER (CURRENT) USE OF INSULIN 04/05/2019 LEE BOUCHER Ot Z85.42 PERSONAL HISTORY OF MALIGNANT NEOPLASM O 04/05/2019 LEE BOUCHER Ot Z87.19 PERSONAL HISTORY OF OTHER DISEASES OF TH 04/05/2019 LEE BOUCHER GAUGE OPERATOR Ot Z87.442 PERSONAL HISTORY OF URINARY CALCULI 04/05/2019 CITLALY, LEE GAUGE OPERATOR Ot Z88.1 ALLERGY STATUS TO OTHER ANTIBIOTIC AGENT 04/05/2019 CITLALY, LEE GAUGE OPERATOR Ot Z88.2 ALLERGY STATUS TO SULFONAMIDES STATUS 04/05/2019 CITLALY, LEE GAUGE OPERATOR Ot Z88.5 ALLERGY STATUS TO NARCOTIC AGENT STATUS 04/05/2019 CITLALY, LEE GAUGE OPERATOR Ot Z88.8 ALLERGY STATUS TO OTH DRUG/MEDS/BIOL SUB 04/05/2019 CITLALY, LEE GAUGE OPERATOR Ot Z91.040 LATEX ALLERGY STATUS 04/05/2019 CITLALY, LEE GAUGE OPERATOR Ot Z93.3 COLOSTOMY STATUS 04/09/2019 CITLALY, LEE GAUGE OPERATOR Ot E11.9 TYPE 2 DIABETES MELLITUS WITHOUT COMPLIC 04/09/2019 CITLALY, LEE GAUGE OPERATOR Ot S81.811A LACERATION W/O FOREIGN BODY, RIGHT LOWER 04/09/2019 CITLALY, LEE GAUGE OPERATOR Ot W26.8XXA CONTACT WITH OTHER SHARP OBJECT(S), NEC, 04/09/2019 CITLALY, LEE GAUGE OPERATOR Ot Z79.4 ALF (CURRENT) USE OF INSULIN 04/09/2019 CITLALY, LEE GAUGE OPERATOR Ot Z85.42 PERSONAL HISTORY OF MALIGNANT NEOPLASM O 04/09/2019 CITLALY, LEE GAUGE OPERATOR Ot Z87.19 PERSONAL HISTORY OF OTHER DISEASES OF 04/09/2019 CITLALY, LEE GAUGE OPERATOR Ot Z87.442 PERSONAL HISTORY OF URINARY CALCULI 04/09/2019 CITLALY, LEE GAUGE OPERATOR Ot Z88.1 ALLERGY STATUS TO OTHER ANTIBIOTIC AGENT 04/09/2019 CITLALY, LEE GAUGE OPERATOR Ot Z88.2 ALLERGY STATUS TO SULFONAMIDES STATUS 04/09/2019 CITLALY, LEE GAUGE OPERATOR Ot Z88.5 ALLERGY STATUS TO NARCOTIC AGENT STATUS 04/09/2019 CITLALY, LEE GAUGE OPERATOR Ot Z88.8 ALLERGY STATUS TO OTH DRUG/MEDS/BIOL SUB 04/09/2019 CITLALY, LEE GAUGE OPERATOR Ot Z91.040 LATEX ALLERGY STATUS 04/09/2019 CITLALY, LEE GAUGE OPERATOR Ot Z93.3 COLOSTOMY STATUS 04/16/2019 MAHENDRA ROJAS, EDWARDO Nelson Ot Z12.31 ENCNTR SCREEN MAMMOGRAM FOR MALIGNANT NE 11/13/2019 Ot N39.0 URIN UNRULY TRACT INFECTION, SITE NOT SPECIF 11/13/2019 ZEINAB ROJAS, STEPHANIE Reagan Ot Z51.81 ENCOUNTER FOR THERAPEUTIC DRUG LEVEL MON 11/13/2019 ZEINAB ROJAS, STEPHANIE Reagan Ot Z79.2 SHOE PACKER (CURRENT) USE OF ANTIBIOTICS 11/13/2019 Ot Z51.81 ENC OUNTER FOR THERAPEUTIC DRUG LEVEL MON 11/13/2019 Ot Z79.2 SHOE PACKER (CURRENT) USE OF ANTIBIOTICS 11/13/2019 Ot R31.9 LANCE TURIA, UNSPECIFIED 11/13/2019 ZAINAB ROJAS, EDWARDO Barrios Ot N39 .0 URINARY TRACT INFECTION, SITE NOT SPECIF 11/13/2019 MAHENDRA ROJAS, EDWARDO Nelson Ot N39 .0 URINARY TRACT INFECTION, SITE NOT SPECIF 11/13/2019 AMHENDRA ROJAS, EDWARDO Nelson Ot N39 .0 URINARY TRACT INFECTION, SITE NOT SPECIF 11/13/2019 EDWARDO MCCRAY MD Ot N39 .0 URINARY TRACT INFECTION, SITE NOT SPECIF 11/13/2019 BEKA DOTY Ot N20.0 CALCULUS OF KIDNEY 11/13/2019 BEKA DOTY Ot N28.1 CYST OF KIDNEY, ACQUIRED 11/13/2019 BEKA DOTY Ot N30.9 1 CYSTITIS, UNSPECIFIED WITH HEMATURIA 11/13/2019 BEKA DOTY Ot Z90.5 ACQUIRED ABSENCE OF KIDNEY 11/13/2019 ADEOLA STILES LEAD ETL DEVELOPER Ot B37.89 OTHER SITES OF CANDIDIASIS 11/13/2019 ADEOLA STILES LEAD ETL DEVELOPER Ot L89.133 PRESSURE ULCER OF RIGHT LOWER BACK, STAG 11/13/2019 ADEOLA STILES LEAD ETL DEVELOPER Ot B37.89 OTHER SITES OF CANDIDIASIS 11/13/2019 ADEOLA STILES LEAD ETL DEVELOPER Ot L89.133 PRESSURE ULCER OF RIGHT LOWER BACK, STAG 11/13/2019 MAHENDRA ROJAS, EDWARDO Nelson Ot Z12.31 ENCNTR SCREEN MAMMOGRAM FOR MALIGNANT NE 11/13/2019 MARAH ROJAS, GERALD Hastings Ot A41.9 SEPSIS, UNSPECIFIED ORGANISM 11/13/2019 MARAH ROJAS, GERALD Hastings Ot C55 MALIGNANT NEOPLASM OF UTERUS, PART UNSPE 11/13/2019 MARAH ROJAS, GERALD Hastings Ot 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 UNSPECIFIED OVARY [...] SEQUELA 11/13/2019 GERALD CRYSTAL MD Ot Z79.4 SHOE PACKER (CURRENT) USE OF INSULIN 11/13/2019 GERALD CRYSTAL [...] AT T2-T6 LEVEL OF THORACIC S 11/13/2019 GAULT MD, GERALD R Ot V99.XXXS UNSPECIFIED TRANSPORT ACCIDENT, SEQUELA 11/13/2019 GERALD CRYSTAL MD Ot Z79.4 SHOE PACKER (CURRENT) USE OF INSULIN 11/13/2019 GERALD CRYSTAL [...] UTERINE AND VAGINAL BLEEDING, U 11/13/2019 GERALD RCYSTAL MD Ot S24.102S UNSP INJURY AT T2-T6 LEVEL OF THORACIC S 11/13/2019 GERALD CRYSTAL MD Ot V99.XXXS UNSPECIFIED TRANSPORT ACCIDENT, SEQUELA 11/13/2019 GERALD CRYSTAL MD Ot Z79.4 SHOE PACKER (CURRENT) USE OF INSULIN 11/13/2019 GERALD CRYSTAL MD Ot Z90.5 ACQUIRED ABSENCE OF KIDNEY 11/13/2019 GERALD CRYSTAL MD Ot Z93.3 COLOSTOMY STATUS 11/13/2019 GERALD CRYSTAL MD Ot Z99.3 DEPENDENCE ON WHEELCHAIR 11/14/2019 GERALD CRYSTAL MD Ot A41.9 SEPSIS, UNSPECIFIED ORGANISM 11/14/2019 GERADL CRYSTAL MD Ot C55 MALIGNANT NEOPLASM OF UTERUS, PART UNSPE 11/14/2019 GAULT MD, GERALD R Ot 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 UNSPECIFIED OVARY 11/14/2019 GERALD CRYSTAL MD Ot D50.9 IRON DEFICIENCY ANEMIA, UNSPECIFIED 11/14/2019 GERALD CRYSTAL MD Ot E11.6 5 TYPE 2 DIABETES MELLITUS WITH HYPERGLYCE 11/14/2019 GERALD CRYSTAL MD R Ot G82.2 2 PARAPLEGIA, INCOMPLETE 11/14/2019 GERALD [...] SEQUELA 11/14/2019 GERALD CRYSTAL MD Ot Z79.4 SHOE PACKER (CURRENT) USE OF INSULIN 11/14/2019 GERALD CRYSTAL MD Ot Z90.5 ACQUIRED ABSENCE OF KIDNEY 11/14/2019 GREALD CRYSTAL MD Ot Z93.3 COLOSTOMY STATUS 11/14/2019 [...] AND VAGINAL BLEEDING, U 11/15/2019 GERALD CRYSTAL MD, Ot S24.102S UNSP INJURY AT T2-T6 LEVEL OF THORACIC S 11/15/2019 GERALD CRYSTAL MD, Ot V99.XXXS UNSPECIFIED TRANSPORT ACCIDENT, SEQUELA 11/15/2019 GERALD CRYSTAL MD, Ot Z79.4 ALF (CURRENT) USE OF INSULIN 11/15/2019 GEARLD CRYSTAL MD Ot Z90.5 ACQUIRED ABSENCE OF KIDNEY 11/15/2019 GERALD CRYSTAL MD Ot Z93.3 COLOSTOMY STATUS 11/15/2019 GERALD CRYSTAL MD, Ot Z99.3 DEPENDENCE ON WHEELCHAIR 11/16/2019 GERALD [...] AND VAGINAL BLEEDING, U 11/16/2019 GERALD CRYSTAL MD, Ot S24.102S UNSP INJURY AT T2-T6 LEVEL OF THORACIC S 11/16/2019 GERALD CRYSTAL MD Ot T83.518A I/I REACT D/T OTHER URINARY CATHETER, IN 11/16/2019 GERALD CRYSTAL MD Ot V99.XXXS UNSPECIFIED TRANSPORT ACCIDENT, SEQUELA 11/16/2019 GAULT MD, GERALD R Ot Z79.4 ALF (CURRENT) USE OF INSULIN 11/16/2019 GERALD CRYSTAL MD, Ot Z90.5 ACQUIRED ABSENCE OF KIDNEY 11/16/2019 GERALD CRYSTAL MD, Ot Z93.3 COLOSTOMY STATUS 11/16/2019 GERALD CRYSTAL MD, Ot Z99.3 DEPENDENCE ON WHEELCHAIR 11/21/2019 CROW DO, CHRISTIAN K Ot D62 ACUTE POSTHEMORRHAGIC ANEMIA 11/24/2019 CROW DO, CHRISTIAN K Ot D62 ACUTE POSTHEMORRHAGIC ANEMIA 11/25/2019 JUANA HOLBROOK MD, Ot Z01.81 8 ENCOUNTER FOR OTHER PREPROCEDURAL EXAMIN 11/26/2019 JUANA HOLBROOK MD, Ot C56.2 MALIGNANT [...] SPECIF 11/26/2019 JUANA HOLBROOK MD, Ot Z79.4 SHOE PACKER (CURRENT) USE OF INSULIN 11/26/2019 JUANA HOLBROOK MD, Ot Z79.89 1 ALF (CURRENT) USE OF OPIATE ANALGE 11/26/2019 JUANA HOLBROOK MD, Ot Z79.89 9 OTHER ALF (CURRENT) DRUG THERAPY 11/26/2019 JUANA HOLBROOK MD, [...] SPECIF 11/30/2019 JUANA HOLBROOK MD, Ot Z79.4 ALF (CURRENT) USE OF INSULIN 11/30/2019 JUANA HOLBROOK MD, Ot Z79.89 1 SHOE PACKER (CURRENT) USE OF OPIATE ANALGE 11/30/2019 JUANA HOLBROOK MD, Ot Z79.89 9 OTHER ALF (CURRENT) DRUG THERAPY 11/30/2019 JUANA HOLBROOK MD, [...] SPECIF 11/30/2019 JUANA HOLBROOK MD, Ot Z79.4 SHOE PACKER (CURRENT) USE OF INSULIN 11/30/2019 JUANA HOLBROOK MD, Ot Z79.89 1 SHOE PACKER (CURRENT) USE OF OPIATE ANALGE 11/30/2019 JUANA HOLBROOK MD, Ot Z79.89 9 OTHER ALF (CURRENT) DRUG THERAPY 11/30/2019 JUANA HOLBROOK MD, [...] SPECIF 12/02/2019 JUANA HOLBROOK MD, Ot Z79.4 SHOE PACKER (CURRENT) USE OF INSULIN 12/02/2019 JUANA HOLBROOK MD, Ot Z79.89 1 ALF (CURRENT) USE OF OPIATE ANALGE 12/02/2019 JUANA HOLBROOK MD, Ot Z79.89 9 OTHER ALF (CURRENT) DRUG THERAPY 12/02/2019 JUANA HOLBROOK MD, Ot Z80.3 FAMILY HISTORY OF MALIGNANT NEOPLASM OF 12/02/2019 JUANA HOLBROOK MD, Ot Z80.42 FAMILY HISTORY OF MALIGNANT NEOPLASM OF 12/02/2019 JUANA HOLBROOK MD, Ot Z82.49 FAMILY HX [...] Ot Z91.04 0 LATEX ALLERGY STATUS 12/02/2019 YUSEF ROJAS, JUANA Ot Z93.3 COLOSTOMY STATUS 12/25/2019 Ot N39.0 URIN UNRULY TRACT INFECTION, SITE NOT SPECIF 12/25/2019 ZEINAB ROJAS, STEPHANIE Reagan Ot Z51.81 ENCOUNTER FOR THERAPEUTIC DRUG LEVEL MON 12/25/2019 ZEINAB ROJAS, STEPHANIE Reagan Ot Z79.2 SHOE PACKER (CURRENT) USE OF ANTIBIOTICS 12/25/2019 Ot Z51.81 ENC OUNTER FOR THERAPEUTIC DRUG LEVEL MON 12/25/2019 Ot Z79.2 SHOE PACKER (CURRENT) USE OF ANTIBIOTICS 12/25/2019 Ot R31.9 LANCE TURIA, UNSPECIFIED 12/25/2019 EDWARDO LAMB MD Ot N39 .0 URINARY TRACT INFECTION, SITE NOT SPECIF 12/25/2019 EDWARDO MCCRAY MD Ot N39 .0 URINARY TRACT INFECTION, SITE NOT SPECIF 12/25/2019 EDWARDO MCCRAY MD Ot N39 .0 URINARY TRACT INFECTION, SITE NOT SPECIF 12/25/2019 EDWARDO MCCRAY MD Ot N39 .0 URINARY TRACT INFECTION, SITE NOT SPECIF 12/25/2019 BEKA DOTY Ot N20.0 CALCULUS OF KIDNEY 12/25/2019 BEKA DOTY Ot N28.1 CYST OF KIDNEY, ACQUIRED 12/25/2019 BEKA DOTY Ot N30.9 1 CYSTITIS, UNSPECIFIED WITH HEMATURIA 12/25/2019 BEKA DOTY Ot Z90.5 ACQUIRED ABSENCE OF KIDNEY 12/25/2019 ADEOLA STILES LEAD ETL DEVELOPER Ot 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 9 SEPSIS, UNSPECIFIED ORGANISM 12/25/2019 ROSANGELA ROJAS, MARTY Li Ot D64. 9 ANEMIA, UNSPECIFIED 12/25/2019 MARTY ADAMES MD Ot E11. 9 TYPE 2 DIABETES MELLITUS WITHOUT COMPLIC 12/25/2019 MARTY ADAMES MD Ot L89.159 PRESSURE ULCER OF SACRAL REGION, UNSPECI 12/25/2019 MARTY ADAMES MD Ot L89.309 PRESSURE ULCER OF UNSPECIFIED BUTTOCK, U 12/25/2019 MARTY ADAMES MD Ot N39. 0 URINARY TRACT INFECTION, SITE NOT SPECIF 12/25/2019 MARTY ADAMES MD Ot Z79. 4 SHOE PACKER (CURRENT) USE OF INSULIN 12/25/2019 MARTY DAAMES MD Ot Z85. 42 PERSONAL HISTORY OF MALIGNANT NEOPLASM O 12/25/2019 MARTY ADAMES MD Ot Z85. 43 PERSONAL HISTORY OF MALIGNANT NEOPLASM O 12/28/2019 MARTY ADAMES MD Ot A41. 9 SEPSIS, UNSPECIFIED ORGANISM 12/28/2019 MARTY ADAMES MD Ot D64. 9 ANEMIA, UNSPECIFIED 12/28/2019 MARTY ADAMES MD Ot E11. 9 TYPE 2 DIABETES MELLITUS WITHOUT COMPLIC 12/28/2019 MARTY ADAMES MD Ot L89.159 PRESSURE ULCER OF SACRAL REGION, UNSPECI 12/28/2019 MARTY ADAMES MD Ot L89.309 PRESSURE ULCER OF UNSPECIFIED BUTTOCK, U 12/28/2019 MARTY ADAMES MD Ot N39. 0 URINARY TRACT INFECTION, SITE NOT SPECIF 12/28/2019 MARTY ADAMES MD Ot Z79. 4 SHOE PACKER (CURRENT) USE OF INSULIN 12/28/2019 MARTY ADAMES MD Ot Z85. 42 PERSONAL HISTORY OF MALIGNANT NEOPLASM O 12/28/2019 MARTY ADAMES MD Ot Z85. 43 PERSONAL HISTORY OF MALIGNANT NEOPLASM O Procedures Code [place] [address] OFFI CE OR OTHER OUTPATIENT VISIT FOR THE EVALUATION AND MANAGEMENT OF ANEW PATIENT, WHICH REQUIRES CHERYL WILSON 01/27/2016 [id number] IN SERTION OF INFUSION DEV INTO SUP VENA 09/22/2016 [id number] BY PASS SIGMOID COLON TO CUTANEOUS, PERC 01/04/2017 [id number] EX CISION OF SIGMOID COLON, PERCUTANEOUS 01/04/2017 [id number] EX CISION OF SIGMOID COLON, PERCUTANEOUS 01/04/2017 [id number] IN SERTION OF INFUSION DEV INTO SUP [...] culture - 09/08/16 16:55 Bacterial urine culture [id number] NRG COLONY COUNT <10,000 NRG FTX;REPORTABLE NO FURTHER STUDIES FOR THIS ISOLATE NR FREE TEXT ENTRY 2 UNLESS REQUESTED [facility] Bacterial susceptibility panel - 7 16:55 Gentamicin [...] 102 mmol/L 98-107 Carbon dioxide 16 mmol/L -32 Serum or plasma anion gap determination (moles/volume) [...] 110 mmol/L 98-107 Carbon dioxide 12 mmol/L -32 Serum or plasma anion gap determination (moles/volume) [...] 8.5-10.1 Blood type T Indirect antibody screen [facility] - 12/31/16 12:40 ABO+Rh group AP NRG Blood group antibody screen NEGATIVE NR G Capillary blood glucose measurement by g lucometer (mass/volume) - 01/04/17 07:28 Capillary blood glucose measurement by glucometer (mas s/volume) 81 mg/dL 70-110 Serum or plasma choriogonadotropin (preg mae test) detection - 01/04/17 07:44 Serum or plasma choriogonadotropin ( test) de tection NEGATIVE NEGATIVE Blood type T Indirect antibody screen [facility] - 01/04/17 07:44 ABO+Rh group AP NR Transfusion band number [id number] NRG Blood group antibody screen NEGATIVE NR [...] NRG Blood hypochromia detection by light microscopy [facility] Blood lactic acid measurement (moles/vol ume) [...] culture - 01/15/17 19:20 Bacterial urine culture [id number] NRG COLONY COUNT 10,000/ML - 100,000/ML NRG FTX;REPORTABLE SENSITIVITY REPORTED 01/17/17 7:25 [facility] Bacterial susceptibility panel - 7 19:20 [...] susceptibility test by minimum inhibitory concentration - [facility] Bacterial susceptibility panel - 7 19:20 [...] Bacteria identification in isolate by anaerobe culture [id number] NRG Gram stain microscopy - 07/04/17 14:50 GRAM STAIN RESULT FEW WBC'S, NO BACTERIA OBSERVED NRG Bacteria identification in wound by cult ure - 07/04/17 14:50 Bacteria identification in wound by culture [id number] NRG FREE TEXT EXTERNAL SENT TO REF.LAB FOR SENSITIVITY 07-08 NRG QUANTITY OF GROWTH Scant Growth NRG MRSA AGAR Screening test for MRSA is N EGATIVE (Final to follow) NRG FREE TEXT ENTRY 2 (COAGULASE NEGATIVE STAPHYLOCOCC [...] culture - 09/29/17 15:01 Bacterial urine culture [id number] NRG COLONY COUNT 10,000/ML - 100,000/ML NRG [...] 12/02/17 15:00 CULTURE, URINE, ROUTINE SEE NOTE [facility] CULTURE, URINE - 06/03/18 17:11 CULTURE, URINE, ROUTINE SEE NOTE [facility] CULTURE, URINE - 09/11/18 15:40 CULTURE, URINE, ROUTINE SEE NOTE [facility] CULTURE, URINE - 04/10/19 14:48 CULTURE, URINE, ROUTINE SEE NOTE [facility] CBC - 08/06/19 16:34 WHITE BLOOD CELL [...] PREV. PAP: NRG PREV. 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 11/12 07:15 NRG ID CONFIRMATION RML ID [...] culture - 11/13/19 20:32 Bacterial urine culture [id number] NRG COLONY COUNT <10,000 NRG SUSCEPTIBILITY NO [...] LEUKO REDUCED AS1 T RANSFUSED 11/21/19 1806 NR Blood type T Indirect antibody screen pa serena - 11/21/19 12:42 WRISTBAND NUMBER [id number] NRG ABO+Rh group AP NRG Blood group [...] 140-400 MPV 10.9 fL 7.5-12.5 ABSOLUTE NEUTROPHILS 64964 cells/uL 1500 -7800 ABSOLUTE LYMPHOCYTES 2741 cells/uL [...] 1.3 % NRG BASOPHILS 1.0 % NRG CBC - 12/16/19 13:22 WHITE BLOOD CELL COUNT 20.0 Thousand/uL 3.8-10.8 RED BLOOD CELL COUNT 3.21 Million/uL 3.8 0-5.10 HEMOGLOBIN 9.2 g/dL 11.7-15.5 HEMATOCRIT 28.8 % 35.0-45.0 MCV 89.7 fL 80.0-100.0 MCH 28.7 pg 27.0-33.0 MCHC 31.9 g/dL 32.0-36.0 RDW 16.4 % 11.0-15.0 PLATELET COUNT 352 Thousand/uL 140-400 MPV 10.8 fL 7.5-12.5 ABSOLUTE NEUTROPHILS 20106 cells/uL 1500 -7800 ABSOLUTE LYMPHOCYTES 2080 cells/uL 850-3 900 ABSOLUTE MONOCYTES 700 cells/uL 200-950 ABSOLUTE EOSINOPHILS 180 cells/uL 15-500 ABSOLUTE BASOPHILS 60 cells/uL 0-200 NEUTROPHILS 84.9 % NRG LYMPHOCYTES 10.4 % NRG MONOCYTES 3.5 % NRG EOSINOPHILS 0.9 % NRG BASOPHILS 0.3 % NRG Gram stain microscopy - 12/25/19 14:35 Gram stain microscopy MANY GRAM POSITIVE THOM CI OF VARYING MORPHOLOGIES NRG Bacteria identification in wound by cult ure - 12/25/19 14:35 Bacteria identification in wound by culture [id number] NRG FREE TEXT EXTERNAL CLINDAMYCIN RESISTANT W/O INDUC TION NRG QUANTITY OF GROWTH Many NRG FREE TEXT ENTRY 2 RESISTANT ORGANISM/CONTACT PRECA UTIONS NRG FREE TEXT ENTRY 3 MRSA/METHICILLIN RESISTANT STAPH AUREUS NRG CALL POSITIVES (F1 HELP) MRSA CALLED TO ESTHELA /KU AT 1152,5-30/KD NRG SUSCEPTIBILITY SEE COMMENT NRG MRSA SCREEN MRSA SCREEN IS POSITIVE BY VCP 12-25,11 32 NRG RAPID ID PRELIM RAPID ID BY VCP 12-26-19, 1135 NRG MRSA CONFIRMATION RML CONFIRMED MRSA 12/27 NRG ID CONFIRMATION ID CONFIRMED 12-27-19, 1643 NRG Dirithromycin susceptibility test by dis k diffusion - 12/25/19 14:35 Oxacillin susceptibility test by minimum inhibitory co ncentration > NRG Clindamycin susceptibility test by minimum inhibitory concentration > NRG Erythromycin susceptibility test by minimum inhibitory concentration > NRG Trimethoprim/sulfamethoxazole susceptibi lity test by minimum inhibitoryconcentration > NRG Vancomycin susceptibility test by minimum inhibitory c oncentration 1 NRG Levofloxacin susceptibility test by minimum inhibitory concentration > NRG Rifampin susceptibility test by minimum inhibitory con centration <= NRG Cefazolin susceptibility test by minimum inhibitory co ncentration > NRG Linezolid susceptibility test by minimum inhibitory co ncentration 2 NRG Penicillin G susceptibility test by minimum inhibitory concentration > NRG Moxifloxacin susceptibility test by minimum inhibitory concentration 2 NRG Minocycline susc SRINIVAS <= NRG Complete blood count (CBC) with automate d white blood cell (WBC) differential - 12/25/19 14:41 Blood leukocytes automated count (number/volume) 22.4 10*3/uL 4.3-11.0 Blood erythrocytes automated count (number/volume) 3.14 10*6/uL 4.35-5.85 Venous blood hemoglobin measurement (mass/volume) 8.7 g/dL 11.5-16.0 Blood hematocrit (volume fraction) 28 % 35-52 Automated erythrocyte mean corpuscular volume 89 [ foz_us] 80-99 Automated erythrocyte mean corpuscular h emoglobin (mass per erythrocyte) 28 pg 25-34 Automated erythrocyte mean corpuscular h emoglobin concentration measurement (mass/volume) 31 g/dL 32-36 Automated erythrocyte distribution width ratio 17. 8 % 10.0- 14.5 Automated blood platelet count (count/volume) 581 10*3/uL 130-400 Automated blood platelet mean volume measurement 9.8 [foz_us] 7.4-10.4 Automated blood neutrophils/100 leukocytes 82 % 42-75 Automated blood lymphocytes/100 leukocytes 11 % 12-44 Blood monocytes/100 leukocytes 6 % 0-12 Automated blood eosinophils/100 leukocytes 1 % 0-10 Automated blood basophils/100 leukocytes 0 % 0-10 Blood neutrophils automated count (number/volume) 18.3 10*3 1.8-7.8 Blood lymphocytes automated count (number/volume) 2.6 10*3 1.0-4.0 Blood monocytes automated count (number/volume) 1. 3 10*3 0.0-1.0 Automated eosinophil count 0.2 10*3/uL 0 .0-0.3 Automated blood basophil count (count/volume) 0.0 10*3/uL 0.0-0.1 PT panel in platelet poor plasma by coag ulation assay - 12/25/19 14:41 Prothrombin time (PT) in platelet poor plasma by coagu lation assay 14.3 s 12.2-14.7 INR in platelet poor plasma or blood by coagulation as say 1.1 0.8-1.4 Activated partial thromboplastin time (a PTT) in platelet poor plasma bycoagulation assay - 12/25/19 14:41 Activated partial thromboplastin time (a PTT) in platelet poor plasma bycoagulation assay 51 s 24-35 Manual absolute plasma cell count - 11/27 04/17 14:41 Blood monocytes/100 leukocytes 2 % NRG Manual blood segmented neutrophils/100 leukocytes 88 % NRG Blood band neutrophils/100 leukocytes 2 % NRG Manual blood lymphocytes/100 leukocytes 8 % NRG Manual eosinophils/100 leukocytes in nose 0 % NRG Manual blood basophils/100 leukocytes 0 % NRG Blood anisocytosis detection by light microscopy M ODERATE [facility] Comprehensive metabolic panel - 12/25/19 14:41 Serum or plasma sodium measurement (moles/volume) 137 mmol/L 135-145 Serum or plasma potassium measurement (moles/volume) 4.5 mmol/L 3.6-5.0 Serum or plasma chloride measurement (moles/volume) 116 mmol/L 98-107 Carbon dioxide 9 mmol/L 21-32 Serum or plasma anion gap determination (moles/volume) 12 mmol/L 5-14 Serum or plasma urea nitrogen measurement (mass/volume ) 29 mg/dL 7-18 Serum or plasma creatinine measurement (mass/volume) 1.52 mg/dL 0.60-1.30 Serum or plasma urea nitrogen/creatinine mass ratio 19 NRG Serum or plasma creatinine measurement w ith calculation of estimated glomerular filtration rate 36 NRG Serum or plasma glucose measurement (mass/volume) 97 mg/dL 70-105 Serum or plasma calcium measurement (mass/volume) 10.7 mg/dL 8.5-10.1 Serum or plasma total bilirubin measurement (mass/volu me) 0.2 mg/dL 0.1-1.0 Serum or plasma alkaline phosphatase brittany surement (enzymatic activity/volume) 126 U/L 40-136 Serum or plasma aspartate aminotransfera se measurement (enzymatic activity/volume) 25 U/L 5-34 Serum or plasma alanine aminotransferase measurement (enzymatic activity/volume) 31 U/L 0-55 Serum or plasma protein measurement (mass/volume) 8.4 g/dL 6.4-8.2 Serum or plasma albumin measurement (mass/volume) 3.5 g/dL 3.2-4.5 CALCIUM CORRECTED 11.1 mg/dL 8.5-10.1 Blood lactic acid measurement (moles/vol ume) - 12/25/19 14:41 Blood lactic acid measurement (moles/volume) 1.25 mmol/L 0.50-2.00 Serum or plasma C reactive protein measu rement (mass/volume) - 12/25/19 14:41 Serum or plasma C reactive protein measurement (mass/v olume) 19.70 mg/dL 0.00-0.50 Bacterial blood culture - 12/25/19 14:41 Bacterial blood culture NG NRG Bacterial blood culture - 12/25/19 15:27 Bacterial blood culture NG NRG Complete urinalysis with reflex to cultu re - 12/25/19 15:50 Urine color determination YELLOW NRG Urine clarity determination CLOUDY NR G Urine pH measurement by test [...] NEGATIVE Urine nitrite detection by test strip NEGATIVE NEGATIVE Urine total bilirubin detection by test [...] NRG Complete urinalysis with reflex to culture CULTURE PENDING NRG Bacterial urine culture - 12/25/19 15:50 Bacterial urine culture [id number] NRG COLONY COUNT >100,000/ML NRG FREE TEXT ENTRY 2 REPORT FAXED TO 12-27-19, 1650 /KD NRG SUSCEPTIBILITY SUSCEPTIBILITY REPORTED 12-27-19,164 4 NRG Dirithromycin susceptibility test by dis k diffusion - 12/25/19 15:50 Gentamicin susceptibility test by minimum inhibitory c oncentration <= NRG Trimethoprim/sulfamethoxazole susceptibi lity test by minimum inhibitoryconcentration <= NRG Levofloxacin susceptibility test by minimum inhibitory concentration <= NRG Ceftriaxone susceptibility test by minimum inhibitory concentration S NRG Ciprofloxacin susceptibility test by minimum inhibitor y concentration <= NRG Meropenem susceptibility test by minimum inhibitory co ncentration <= NRG Arterial blood gas measurement - 0 18:50 Blood pCO2 18 mm[Hg] 35-45 Blood pO2 128 mm[Hg] 79-93 Arterial blood bicarbonate measurement (moles/volume) 7 mmol/L 23-27 Arterial blood base excess by calculation -20.1 mm ol/L -2.5-2.5 Arterial blood oxygen saturation measurement 98 % 94-100 * Inhaled oxygen flow rate UNKNOWN NRG Arterial blood pH measurement with patient temperature correction 7.20 7.37-7.43 Arterial blood carbon dioxide, total measurement (mole s/volume) 7.2 mmol/L 21.0-31.0 Body site L WRIST NRG Assessment of wrist artery patency prior to arterial p uncture NA NRG Setting of ventilation mode NO NR G Measurement of body temperature 36.7 NRG Complete blood count (CBC) with automate d white blood cell (WBC) differential - 02/10/20 19:12 Blood leukocytes automated count (number/volume) 12.2 10*3/uL 4.3-11.0 Blood erythrocytes automated count (number/volume) 2.82 10*6/uL 4.35-5.85 Venous blood hemoglobin measurement (mass/volume) 7.4 g/dL 11.5-16.0 Blood hematocrit (volume fraction) 25 % 35-52 Automated erythrocyte mean corpuscular volume 89 [ foz_us] 80-99 Automated erythrocyte mean corpuscular h emoglobin (mass per erythrocyte) 26 pg 25-34 Automated erythrocyte mean corpuscular h emoglobin concentration measurement (mass/volume) 29 g/dL 32-36 Automated erythrocyte distribution width ratio 16. 9 % 10.0- 14.5 Automated blood platelet count (count/volume) 575 10*3/uL 130-400 Automated blood platelet mean volume measurement 9.2 [foz_us] 7.4-10.4 Automated blood neutrophils/100 leukocytes 72 % 42-75 Automated blood lymphocytes/100 leukocytes 23 % 12-44 Blood monocytes/100 leukocytes 3 % [...] 0.0 10*3/uL 0.0-0.1 Comprehensive metabolic panel - 02/10/20 19:12 Serum or plasma sodium measurement (moles/volume) 140 mmol/L 135-145 Serum or plasma potassium measurement (moles/volume) 4.4 mmol/L 3.6-5.0 Serum or plasma chloride measurement (moles/volume) 116 mmol/L 98-107 Carbon dioxide 12 mmol/L 21-32 Serum or plasma anion gap determination (moles/volume) 12 mmol/L 5-14 Serum or plasma urea nitrogen measurement (mass/volume ) 17 mg/dL 7-18 Serum or plasma creatinine measurement (mass/volume) 1.50 mg/dL 0.60-1.30 Serum or plasma urea nitrogen/creatinine mass ratio 11 NRG Serum or plasma creatinine measurement w ith calculation of estimated glomerular filtration rate 37 NRG Serum or plasma glucose measurement (mass/volume) 273 mg/dL 70-105 Serum or plasma calcium measurement (mass/volume) 8.8 mg/dL 8.5-10.1 Serum or plasma total bilirubin measurement (mass/volu me) 0.1 mg/dL 0.1-1.0 Serum or plasma alkaline phosphatase brittany surement (enzymatic activity/volume) 120 U/L 40-136 Serum or plasma aspartate aminotransfera se measurement (enzymatic activity/volume) 16 U/L 5-34 Serum or plasma alanine aminotransferase measurement (enzymatic activity/volume) 23 U/L 0-55 Serum or plasma protein measurement (mass/volume) 7.6 g/dL 6.4-8.2 Serum or plasma albumin measurement (mass/volume) 3.4 g/dL 3.2-4.5 CALCIUM CORRECTED 9.3 mg/dL 8.5-10.1 PT panel in platelet poor plasma by coag ulation assay - 02/10/20 19:12 Prothrombin time (PT) in platelet poor plasma by coagu lation assay 13.3 s 12.2-14.7 INR in platelet poor plasma or blood by coagulation as say 1.0 0.8-1.4 Activated partial thromboplastin time (a PTT) in platelet poor plasma bycoagulation assay - 02/10/20 19:12 Activated partial thromboplastin time (a PTT) in platelet poor plasma bycoagulation assay 35 s 24-35 Blood lactic acid measurement (moles/vol ume) - 02/10/20 19:12 Blood lactic acid measurement (moles/volume) 2.44 mmol/L 0.50-2.00 Complete urinalysis with reflex to cultu re - 02/10/20 20:12 Urine color determination YELLOW NRG Urine clarity determination SL CLOUDY N RG Urine pH measurement by test strip 6.5 5-9 Specific gravity of urine by test strip 1.015 1.016-1.022 Urine protein assay by test strip, semi-quantitative 2+ NEGATIVE Urine glucose detection by automated test strip NE GATIVE NEGATIVE Erythrocytes detection in urine sediment by light micr oscopy NEGATIVE NEGATIVE Urine ketones detection by automated test strip NE GATIVE NEGATIVE Urine nitrite detection by test strip NEGATIVE NEGATIVE Urine total bilirubin detection by test strip NEGA TIVE NEGATIVE Urine urobilinogen measurement by automated test strip (mass/volume) 0.2 mg/dL < = 1.0 Urine leukocyte esterase detection by dipstick NEG ATIVE NEGATIVE Automated urine sediment erythrocyte cou nt by microscopy (number/high power field) NONE NRG Automated urine sediment leukocyte count by microscopy (number/high power field) [HPF] NRG Bacteria detection in urine sediment by light microsco py FEW NRG Squamous epithelial cells detection in u rine sediment by light microscopy NONE NRG Crystals detection in urine sediment by light microsco py PRESENT NRG Casts detection in urine sediment by light microscopy PRESENT NRG Mucus detection in urine sediment by light microscopy NEGATIVE NRG Complete urinalysis with reflex to culture CULTURE PENDING NRG Hyaline casts detection in urine sediment by light srinivas roscopy RARE NRG Calcium oxalate crystals detection in ur ine sediment by light microscopy RARE NRG Encounters ACCT No. Visit Date/Time Discharge Status Pt. Type Provider Facility Loc./Unit Complaint [id number] 09/20/2016 17:09:00 Document Registration [id number] 02/10/2020 18:51:00 20:40:00 DIS Emergency MARTY ADAMES MD [facility] ER ABNORMAL LABS [id number] 12/25/2019 13:36:00 13:36:00 CAN Emergency MARTY ADAMES MD [facility] ER SEPSIS,UTI,DECUBITUS UL CERS [id number] 11/26/2019 09:49:00 14:55:00 DIS Outpatient JUANA HOLBROOK MD [facility] SDC OVARIAN CANCER [id number] 11/25/2019 12:48:00 13:15:00 DIS Outpatient JUANA HOLBROOK MD [facility] PREOP OVARIAN CANCER [id number] 11/21/2019 11:47:00 21:35:00 DIS Outpatient CHRISTIAN CROW DO [facility] 4THo ANEMIA DUE TO ACUTE BLO OD LOSS [id number] 11/12/2019 15:22:00 020 12:09:00 DIS Inpatient GERALD CRYSTAL MD [facility] 4TH SEPSIS,UTI, ANEMIA [id number] 04/05/2019 18:24:00 019 20:32:00 DIS Emergency CITLALYLEE Reagan [facility] ER R LEG LAC [id number] 03/24/2019 08:31:00 019 23:59:59 CLS Outpatient EDWARDO MCCRAY MD [facility] RAD SCREENING [id number] 09/29/2017 14:14:00 018 16:36:00 DIS Emergency CITLALYLEE [facility] ER POSSIBLE UTI/DIZZINESS [id number] 08/01/2017 12:56:00 018 23:59:59 CLS Preadmit ADEOLA STILES LEAD ETL DEVELOPER [facility] WOUNDCARE [id number] 07/18/2017 13:46:00 017 23:59:59 CLS Outpatient ADEOLA STILES LEAD ETL DEVELOPER [facility] WOUNDCARE [id number] 07/04/2017 13:08:00 017 23:59:59 CLS Outpatient ADEOLA STILES LEAD ETL DEVELOPER [facility] WOUNDCARE [id number] 03/14/2017 16:19:00 017 23:59:59 CLS Outpatient BEKA DOTY [facility] RAD KIDNEY STONES, RECURREN T UTI,KEMAR POUCH [id number] 01/15/2017 19:43:00 017 10:40:00 DIS Inpatient GERALD CRYSTAL MD [facility] 4TH URINARY TRACT INFECTION ,SEPSIS [id number] 01/04/2017 07:18:00 017 13:30:00 DIS Inpatient KIRBY CEVALLOS DO [facility] 4TH SACRAL ULCERS; PARAPLEG IA [id number] 12/31/2016 12:05:00 017 12:45:00 DIS Outpatient KIRBY CEVALLOS DO [facility] PREOP SACRAL ULCERS,PARAPLEGI A [id number] 11/04/2016 15:34:00 017 23:59:59 CLS Outpatient EDWARDO MCCRAY MD [facility] UTI [id number] 11/02/2016 21:59:00 017 23:59:59 CLS Preadmit EDWARDO MCCRAY MD [facility] UTI [id number] 11/02/2016 14:39:00 017 23:59:59 CLS Outpatient EDWARDO MCCRAY MD [facility] SDC PLACE PICC LINE,1ST DOS E OF GENTAMYCIN [id number] 10/22/2016 10:41:00 017 23:59:59 CLS Outpatient EDWARDO MCCRAY MD [facility] UTI [id number] 09/21/2016 11:23:00 017 15:15:00 DIS Inpatient BLAIRE TOBIAS DO, [facility] 4TH SWB [id number] 09/18/2016 18:57:00 017 11:20:00 DIS Inpatient LEON SOLIS MD [address] URINARY TRACT INFECTION [id number] 09/08/2016 15:55:00 017 19:20:00 DIS Emergency LEE BOUCHER [facility] ER UTI SYMPTOMS [id number] 03/06/2016 10:21:00 016 23:59:59 CLS Outpatient EDWARDO LAMB MD [facility] UTI [id number] 08/29/2015 23:19:00 016 23:59:59 CLS Outpatient STEPHANIE ARRIOLA MD [facility] LABNPT 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 (curr ent) use of antibiotics, [id number] 11/09/2014 16:38:00 015 17:22:00 DIS Emergency KIRBY FERNANDO MD [facility] ER JAW PAIN/INJ [id number] 07/29/2014 16:59:00 015 18:56:00 DIS Emergency DAYTON EISENBERG MD [facility] ER BLOOD SUGAR CHANGES [id number] 04/02/2014 18:49:00 014 21:17:00 DIS Emergency DAYTON EISENBERG MD [facility] ER CATHETER PROBLEMS [id number] 09/05/2015 07:21:00 Document Registration [id number] 09/01/2015 07:26:00 Document Registration [id number] 08/29/2015 07:36:00 Document Registration [id number] 09/22/2014 21:37:00 Document Registration [id number] 06/28/2016 18:06:00 Document Registration [id number] 12/24/2019 14:00:00 12/24/2019 23:59:5 9 CLS Outpatient MAHENDRA ROJAS, EDWARDO [facility] [id number] 12/16/2019 13:00:00 Document Registration [id number] 12/02/2019 12:20:00 Document Registration [id number] 11/24/2019 13:30:00 Document Registration [id number] 11/20/2019 12:25:00 Document Registration [id number] 10/19/2019 14:00:00 Document Registration [id number] 10/02/2019 10:30:00 Document Registration [id number] 08/06/2019 15:20:00 Document Registration [id number] 04/10/2019 14:40:00 Document Registration [id number] 09/11/2018 12:40:00 Document Registration [id number] 06/03/2018 16:40:00 Document Registration [id number] 12/02/2017 14:40:00 Document Registration [id number] 04/08/2016 07:05:00 Document Registration [id number] 10/19/2015 12:16:06 10/19/2015 23:59: 59 CLS Outpatient Christopher Merritt [id number] 03/30/2015 15:46:58 03/30/2015 23:59: 59 CLS Outpatient Christopher Merritt [id number] 03/28/2015 13:16:14 03/28/2015 23:59: 59 SHYAM Outpatient Christopher Merritt [id number] 03/08/2015 14:53:20 03/08/2015 23:59: 59 CLS Outpatient Christopher Merritt [id number] 06/08/2014 14:29:24 06/08/2014 23:59: 59 CLS Outpatient Mahesh Jackson [id number] 06/03/2014 11:58:38 06/03/2014 23:59: 59 CLS Outpatient Mahesh Jackson [id number] 01/27/2016 14:24:10 Document Registration
== END 2020-02-10 20:40 | disposition home or self-care (01) ==
LOC: EDUNIT# 18:49 → ER 18:51
DX: Z00.00 Encounter for general adult medical examination without abnormal findings (principal); E11.9 Type 2 diabetes mellitus without complications; D64.9 Anemia, unspecified; Z91.040 Latex allergy status; Z88.1 Allergy status to other antibiotic agents; Z88.5 Allergy status to narcotic agent; Z88.2 Allergy status to sulfonamides; Z88.8 Allergy status to other drugs, medicaments and biological substances; Z79.4 Long term (current) use of insulin; Z85.43 Personal history of malignant neoplasm of ovary; Z85.42 Personal history of malignant neoplasm of other parts of uterus
CPT/HCPCS: 36415; 71045; 80053; 81000; 83605; 85025; 85610; 85730; 87040; 87088

== ENCOUNTER → 2020-06-26 | Outpatient (CLI) | payer MEDICARE, MEDICAID ==
[2020-06-26 13:44] LABS: BASOPHILS # (AUTO) 0.1 10^3/uL (0.0-0.1); BASOPHILS % (AUTO) 1 % (0-10); EOSINOPHILS # (AUTO) 0.3 10^3/uL (0.0-0.3); EOSINOPHILS % (AUTO) 2 % (0-10); HEMATOCRIT 28 % (35-52); LYMPHOCYTES # (AUTO) 2.2 10^3/uL (1.0-4.0); LYMPHOCYTES % (AUTO) 20 % (12-44); MEAN CORPUSCULAR HEMOGLOBIN 28 pg (25-34); MEAN CORPUSCULAR HGB CONC 29 g/dL (32-36); MEAN CORPUSCULAR VOLUME 96 fL (80-99); MEAN PLATELET VOLUME 10.8 fL (9.0-12.2); MONOCYTES # (AUTO) 0.6 10^3/uL (0.0-1.0); MONOCYTES % (AUTO) 5 % (0-12); NEUTROPHILS # (AUTO) 7.9 10^3/uL (1.8-7.8); NEUTROPHILS % (AUTO) 72 % (42-75); PLATELET COUNT 434 10^3/uL (130-400)
[2020-06-26 13:47] LABS: ALBUMIN 3.1 GM/DL (3.2-4.5)
[2020-06-26 13:48] LABS: CHLORIDE 101 MMOL/L (98-107); POTASSIUM 4.7 MMOL/L (3.6-5.0); SODIUM 138 MMOL/L (135-145)
[2020-06-26 13:50] LABS: TOTAL PROTEIN 6.5 GM/DL (6.4-8.2)
[2020-06-26 13:51] LABS: CARBON DIOXIDE 20 MMOL/L (21-32)
[2020-06-26 13:52] LABS: BILIRUBIN,TOTAL < 0.1 MG/DL (0.1-1.0)
[2020-06-26 13:53] LABS: ALKALINE PHOSPHATASE 121 U/L (40-136)
[2020-06-26 13:54] LABS: GFR ESTIMATED 48
[2020-06-26 13:55] LABS: ANISOCYTOSIS SLIGHT; BAND NEUTROPHILS 1 %; BUN/CREATININE RATIO 18; EOSINOPHILS % (MANUAL) 4 %; HYPOCHROMASIA SLIGHT; LYMPHOCYTES % (MANUAL) 21 %; MONOCYTES % (MANUAL) 4 %; NEUTROPHILS % (MANUAL) 70 %
[2020-06-26 13:57] LABS: ALANINE AMINOTRANSFERASE 13 U/L (0-55)
[2020-06-26 14:03] LABS: VANCOMYCIN,TROUGH 6.2 UG/ML (10.0-20.0)
[2020-06-26 16:11] LABS: GLUCOSE 459 MG/DL (70-105)
== END ==
LOC: HH 13:19
PROVIDERS: ATTEND Internal Medicine
DX: Z01.89 Encounter for other specified special examinations (principal)
CPT/HCPCS: 80053; 80202; 85007; 85027

== ENCOUNTER → 2020-08-22 | Outpatient (CLI) | payer MEDICARE, MEDICAID | LOC: WOUNDCARE 09:51 | PROVIDERS: ATTEND Orthopaedic Surgery Hand Surgery | DX: L89.153 Pressure ulcer of sacral region, stage 3 (principal); E11.622 Type 2 diabetes mellitus with other skin ulcer; Z99.3 Dependence on wheelchair | CPT/HCPCS: 11042; G0463 ==

== ENCOUNTER → 2020-08-24 | Outpatient (CLI) | payer MEDICARE, MEDICAID ==
--- NOTE | 2020-08-24 14:45 | Diagnostic Imaging Report ---
INDICATION: Sacral decubitus ulcer. FINDINGS: AP and lateral views of the sacrum show some demineralization of the distal sacrum and coccyx. IMPRESSION: Decreased density in the distal sacrum and coccyx which could be due to osteomyelitis. Dictated by: Dictated on workstation # [id number]
== END ==
LOC: RAD 13:24
PROVIDERS: ATTEND Orthopaedic Surgery Hand Surgery
DX: L89.153 Pressure ulcer of sacral region, stage 3 (principal); M85.80 Other specified disorders of bone density and structure, unspecified site; E11.622 Type 2 diabetes mellitus with other skin ulcer; Z99.3 Dependence on wheelchair
CPT/HCPCS: 72220

== ENCOUNTER → 2020-08-29 | Outpatient (CLI) | payer MEDICARE, MEDICAID | LOC: WOUNDCARE 12:54 | PROVIDERS: ATTEND Surgery | DX: I96 Gangrene, not elsewhere classified (principal); L89.150 Pressure ulcer of sacral region, unstageable; E11.622 Type 2 diabetes mellitus with other skin ulcer; G82.20 Paraplegia, unspecified; Z99.3 Dependence on wheelchair | CPT/HCPCS: 11042; A6266; G0463 ==

== ENCOUNTER → 2020-08-29 | Outpatient (CLI) | payer MEDICARE, MEDICAID | LOC: LAB 14:10 | PROVIDERS: ATTEND Surgery | DX: E11.622 Type 2 diabetes mellitus with other skin ulcer (principal); L89.150 Pressure ulcer of sacral region, unstageable; G82.21 Paraplegia, complete; Z99.3 Dependence on wheelchair | CPT/HCPCS: 36415; 86141 ==

== ENCOUNTER → 2020-09-08 | Outpatient (CLI) | payer MEDICARE, MEDICAID ==
[~2020-09-08] MED LIST changes: -LISI-556 PO; +LISI-729 PO
== END ==
LOC: WOUNDCARE 12:29
PROVIDERS: ATTEND Surgery
DX: B35.4 Tinea corporis (principal); L89.153 Pressure ulcer of sacral region, stage 3; L89.150 Pressure ulcer of sacral region, unstageable; E11.622 Type 2 diabetes mellitus with other skin ulcer; G82.21 Paraplegia, complete; M86.48 Chronic osteomyelitis with draining sinus, other site; E11.52 Type 2 diabetes mellitus with diabetic peripheral angiopathy with gangrene; Z99.3 Dependence on wheelchair
CPT/HCPCS: 11043; A6197; G0463

== ENCOUNTER → 2020-09-15 | Outpatient (CLI) | payer MEDICARE, MEDICAID | LOC: WOUNDCARE 13:56 | PROVIDERS: ATTEND Orthopaedic Surgery Hand Surgery | DX: B35.4 Tinea corporis (principal); I96 Gangrene, not elsewhere classified; L89.153 Pressure ulcer of sacral region, stage 3; L89.150 Pressure ulcer of sacral region, unstageable; E11.622 Type 2 diabetes mellitus with other skin ulcer; G82.21 Paraplegia, complete; M86.48 Chronic osteomyelitis with draining sinus, other site; Z99.3 Dependence on wheelchair | CPT/HCPCS: 11042; G0463 ==

== ENCOUNTER → 2020-09-19 | Outpatient (CLI) | payer MEDICARE, MEDICAID | LOC: WOUNDCARE 12:49 | PROVIDERS: ATTEND Surgery | DX: I96 Gangrene, not elsewhere classified (principal); L89.150 Pressure ulcer of sacral region, unstageable; E11.622 Type 2 diabetes mellitus with other skin ulcer; G82.21 Paraplegia, complete; Z99.3 Dependence on wheelchair; M86.48 Chronic osteomyelitis with draining sinus, other site | CPT/HCPCS: 11042; G0463 ==

== ENCOUNTER → 2020-10-03 | Outpatient (CLI) | payer MEDICARE, MEDICAID | LOC: WOUNDCARE 12:51 | PROVIDERS: ATTEND Surgery | DX: L89.150 Pressure ulcer of sacral region, unstageable (principal); E11.622 Type 2 diabetes mellitus with other skin ulcer; G82.21 Paraplegia, complete; M86.48 Chronic osteomyelitis with draining sinus, other site; E11.52 Type 2 diabetes mellitus with diabetic peripheral angiopathy with gangrene; Z99.3 Dependence on wheelchair | CPT/HCPCS: 11042; G0463 ==

== ENCOUNTER → 2020-10-10 | Outpatient (CLI) | payer MEDICARE, MEDICAID | LOC: WOUNDCARE 13:00 | PROVIDERS: ATTEND Surgery | DX: I96 Gangrene, not elsewhere classified (principal); L89.153 Pressure ulcer of sacral region, stage 3; L89.150 Pressure ulcer of sacral region, unstageable; E11.622 Type 2 diabetes mellitus with other skin ulcer; M86.48 Chronic osteomyelitis with draining sinus, other site; G82.20 Paraplegia, unspecified; Z99.3 Dependence on wheelchair | CPT/HCPCS: 11042; G0463 ==

== ENCOUNTER → 2020-10-17 | Outpatient (CLI) | payer MEDICARE, MEDICAID | LOC: WOUNDCARE 12:50 | PROVIDERS: ATTEND Surgery | DX: L89.153 Pressure ulcer of sacral region, stage 3 (principal); L89.150 Pressure ulcer of sacral region, unstageable; E11.622 Type 2 diabetes mellitus with other skin ulcer; G82.21 Paraplegia, complete; M86.48 Chronic osteomyelitis with draining sinus, other site; E11.52 Type 2 diabetes mellitus with diabetic peripheral angiopathy with gangrene; Z99.3 Dependence on wheelchair | CPT/HCPCS: 11042; G0463 ==

== ENCOUNTER → 2020-10-24 | Outpatient (CLI) | payer MEDICARE, MEDICAID | LOC: WOUNDCARE 12:43 | PROVIDERS: ATTEND Surgery | DX: L89.153 Pressure ulcer of sacral region, stage 3 (principal); L89.150 Pressure ulcer of sacral region, unstageable; E11.622 Type 2 diabetes mellitus with other skin ulcer; G82.21 Paraplegia, complete; M86.48 Chronic osteomyelitis with draining sinus, other site; E11.52 Type 2 diabetes mellitus with diabetic peripheral angiopathy with gangrene; Z99.3 Dependence on wheelchair | CPT/HCPCS: 11042; G0463 ==

== ENCOUNTER → 2020-10-31 | Outpatient (CLI) | payer MEDICARE, MEDICAID | LOC: WOUNDCARE 12:50 | PROVIDERS: ATTEND Surgery | DX: I96 Gangrene, not elsewhere classified (principal); L89.153 Pressure ulcer of sacral region, stage 3; E11.622 Type 2 diabetes mellitus with other skin ulcer; G82.21 Paraplegia, complete; M86.48 Chronic osteomyelitis with draining sinus, other site; Z99.3 Dependence on wheelchair | CPT/HCPCS: 11042; G0463 ==

== ENCOUNTER → 2020-11-07 | Outpatient (CLI) | payer MEDICARE, MEDICAID | LOC: WOUNDCARE 12:48 | PROVIDERS: ATTEND Surgery | DX: I96 Gangrene, not elsewhere classified (principal); L89.153 Pressure ulcer of sacral region, stage 3; L22 Diaper dermatitis; E11.622 Type 2 diabetes mellitus with other skin ulcer; G82.21 Paraplegia, complete; Z99.3 Dependence on wheelchair; M86.48 Chronic osteomyelitis with draining sinus, other site | CPT/HCPCS: 11042; G0463 ==

== ENCOUNTER → 2020-11-21 | Outpatient (CLI) | payer MEDICARE, MEDICAID | LOC: WOUNDCARE 12:48 | PROVIDERS: ATTEND Surgery | DX: E11.52 Type 2 diabetes mellitus with diabetic peripheral angiopathy with gangrene (principal); E11.622 Type 2 diabetes mellitus with other skin ulcer; I96 Gangrene, not elsewhere classified; L89.153 Pressure ulcer of sacral region, stage 3; G82.21 Paraplegia, complete; Z99.3 Dependence on wheelchair | CPT/HCPCS: 11042; G0463 ==

== ENCOUNTER → 2020-11-28 | Outpatient (CLI) | payer MEDICARE, MEDICAID | LOC: WOUNDCARE 12:42 | PROVIDERS: ATTEND Surgery | DX: L89.153 Pressure ulcer of sacral region, stage 3 (principal); E11.622 Type 2 diabetes mellitus with other skin ulcer; G82.21 Paraplegia, complete; E11.52 Type 2 diabetes mellitus with diabetic peripheral angiopathy with gangrene; Z99.3 Dependence on wheelchair | CPT/HCPCS: 11042; G0463 ==

== ENCOUNTER → 2020-12-12 | Outpatient (CLI) | payer MEDICARE, MEDICAID | LOC: WOUNDCARE 12:45 | PROVIDERS: ATTEND Surgery | DX: I96 Gangrene, not elsewhere classified (principal); L89.153 Pressure ulcer of sacral region, stage 3; E11.622 Type 2 diabetes mellitus with other skin ulcer; G82.20 Paraplegia, unspecified; Z99.3 Dependence on wheelchair | CPT/HCPCS: 11042 ==

== ENCOUNTER → 2020-12-19 | Outpatient (CLI) | payer MEDICARE, MEDICAID | LOC: WOUNDCARE 12:39 | PROVIDERS: ATTEND Surgery | DX: I96 Gangrene, not elsewhere classified (principal); L89.153 Pressure ulcer of sacral region, stage 3; E11.622 Type 2 diabetes mellitus with other skin ulcer; G82.21 Paraplegia, complete; Z99.3 Dependence on wheelchair; L89.322 Pressure ulcer of left buttock, stage 2 | CPT/HCPCS: 11042; 83036; G0463; 36415; 99212 ==

== ENCOUNTER → 2021-01-04 | Outpatient (CLI) | payer MEDICARE, MEDICAID | LOC: WOUNDCARE 13:42 | PROVIDERS: ATTEND Surgery | DX: L89.153 Pressure ulcer of sacral region, stage 3 (principal); E11.622 Type 2 diabetes mellitus with other skin ulcer; G82.21 Paraplegia, complete; E11.52 Type 2 diabetes mellitus with diabetic peripheral angiopathy with gangrene; Z99.3 Dependence on wheelchair | CPT/HCPCS: 11042; A6197; A6212; G0463 ==

== ENCOUNTER → 2021-01-09 | Outpatient (CLI) | payer MEDICARE, MEDICAID | LOC: WOUNDCARE 12:44 | PROVIDERS: ATTEND Surgery | DX: I96 Gangrene, not elsewhere classified (principal); L89.153 Pressure ulcer of sacral region, stage 3; E11.622 Type 2 diabetes mellitus with other skin ulcer; G82.21 Paraplegia, complete; Z99.3 Dependence on wheelchair | CPT/HCPCS: A6212; G0463; 99212 ==

== ENCOUNTER → 2021-01-16 | Outpatient (CLI) | payer MEDICARE, MEDICAID | LOC: WOUNDCARE 12:49 | PROVIDERS: ATTEND Surgery | DX: I96 Gangrene, not elsewhere classified (principal); L89.153 Pressure ulcer of sacral region, stage 3; E11.622 Type 2 diabetes mellitus with other skin ulcer; G82.21 Paraplegia, complete; Z99.3 Dependence on wheelchair | CPT/HCPCS: 11042; A6197; G0463 ==

== ENCOUNTER → 2021-01-25 | Outpatient (CLI) | payer MEDICARE, MEDICAID | LOC: WOUNDCARE 15:15 | PROVIDERS: ATTEND Surgery | DX: I96 Gangrene, not elsewhere classified (principal); L89.153 Pressure ulcer of sacral region, stage 3; E11.622 Type 2 diabetes mellitus with other skin ulcer; E11.65 Type 2 diabetes mellitus with hyperglycemia; G82.21 Paraplegia, complete | CPT/HCPCS: 11042; G0463 ==

== ENCOUNTER → 2021-02-06 | Outpatient (CLI) | payer MEDICARE, MEDICAID | LOC: WOUNDCARE 12:49 | PROVIDERS: ATTEND Surgery | DX: L89.153 Pressure ulcer of sacral region, stage 3 (principal); E11.622 Type 2 diabetes mellitus with other skin ulcer; G82.21 Paraplegia, complete; E11.65 Type 2 diabetes mellitus with hyperglycemia; E11.52 Type 2 diabetes mellitus with diabetic peripheral angiopathy with gangrene | CPT/HCPCS: 11042; G0463 ==

== ENCOUNTER → 2021-02-13 | Outpatient (CLI) | payer MEDICARE, MEDICAID | LOC: WOUNDCARE 12:45 | PROVIDERS: ATTEND Surgery | DX: I96 Gangrene, not elsewhere classified (principal); L89.153 Pressure ulcer of sacral region, stage 3; E11.622 Type 2 diabetes mellitus with other skin ulcer; G82.21 Paraplegia, complete | CPT/HCPCS: 11042; G0463 ==

== ENCOUNTER → 2021-02-13 | Outpatient (CLI) | payer MEDICARE, MEDICAID ==
[2021-02-13 14:46] LABS: BASOPHILS # (AUTO) 0.1 10^3/uL (0.0-0.1); BASOPHILS % (AUTO) 1 % (0-10); EOSINOPHILS # (AUTO) 0.3 10^3/uL (0.0-0.3); EOSINOPHILS % (AUTO) 2 % (0-10); HEMATOCRIT 36 % (35-52); LYMPHOCYTES # (AUTO) 2.9 10^3/uL (1.0-4.0); LYMPHOCYTES % (AUTO) 20 % (12-44); MEAN CORPUSCULAR HEMOGLOBIN 30 pg (25-34); MEAN CORPUSCULAR HGB CONC 30 g/dL (32-36); MEAN CORPUSCULAR VOLUME 99 fL (80-99); MEAN PLATELET VOLUME 10.3 fL (9.0-12.2); MONOCYTES # (AUTO) 0.7 10^3/uL (0.0-1.0); MONOCYTES % (AUTO) 5 % (0-12); NEUTROPHILS # (AUTO) 10.2 10^3/uL (1.8-7.8); NEUTROPHILS % (AUTO) 72 % (42-75); PLATELET COUNT 300 10^3/uL (130-400); WHITE BLOOD COUNT 14.2 10^3/uL (4.3-11.0)
[2021-02-13 15:03] LABS: ALBUMIN 4.1 GM/DL (3.2-4.5); BILIRUBIN,TOTAL 0.2 MG/DL (0.1-1.0); CALCIUM 9.6 MG/DL (8.5-10.1); CREATININE SERUM 1.51 MG/DL (0.60-1.30); POTASSIUM 5.5 MMOL/L (3.6-5.0); TOTAL PROTEIN 7.9 GM/DL (6.4-8.2)
[2021-02-13 15:12] LABS: BASOPHILS % (MANUAL) 2 %; EOSINOPHILS % (MANUAL) 3 %; LYMPHOCYTES % (MANUAL) 19 %; MONOCYTES % (MANUAL) 5 %; NEUTROPHILS % (MANUAL) 71 %
[2021-02-13 15:13] LABS: RBC MORPH NORMAL
== END ==
LOC: LAB 13:54
PROVIDERS: ATTEND Surgery
DX: L89.153 Pressure ulcer of sacral region, stage 3 (principal); E11.622 Type 2 diabetes mellitus with other skin ulcer; G82.21 Paraplegia, complete; E11.65 Type 2 diabetes mellitus with hyperglycemia
CPT/HCPCS: 36415; 80053; 85007; 85027

== ENCOUNTER → 2021-02-20 | Outpatient (CLI) | payer MEDICARE, MEDICAID | LOC: WOUNDCARE 12:48 | PROVIDERS: ATTEND Surgery | DX: I96 Gangrene, not elsewhere classified (principal); L89.153 Pressure ulcer of sacral region, stage 3; E11.622 Type 2 diabetes mellitus with other skin ulcer; G82.20 Paraplegia, unspecified | CPT/HCPCS: 11042; G0463 ==

== ENCOUNTER → 2021-03-13 | Outpatient (CLI) | payer MEDICARE, MEDICAID | LOC: WOUNDCARE 12:44 | PROVIDERS: ATTEND Surgery | DX: L89.153 Pressure ulcer of sacral region, stage 3 (principal); E11.622 Type 2 diabetes mellitus with other skin ulcer; I96 Gangrene, not elsewhere classified; G82.21 Paraplegia, complete | CPT/HCPCS: 11042; A6266; G0463 ==

== ENCOUNTER → 2021-03-20 | Outpatient (CLI) | payer MEDICARE, MEDICAID | LOC: WOUNDCARE 12:47 | PROVIDERS: ATTEND Surgery | DX: I96 Gangrene, not elsewhere classified (principal); L89.153 Pressure ulcer of sacral region, stage 3; E11.622 Type 2 diabetes mellitus with other skin ulcer; G82.21 Paraplegia, complete | CPT/HCPCS: 11042; G0463 ==

== ENCOUNTER → 2021-03-27 | Outpatient (CLI) | payer MEDICARE, MEDICAID ==
[2021-03-27 14:23] LABS: CALCIUM 9.6 MG/DL (8.5-10.1); CREATININE SERUM 1.65 MG/DL (0.60-1.30)
== END ==
LOC: WOUNDCARE 12:45
PROVIDERS: ATTEND Surgery
DX: L89.153 Pressure ulcer of sacral region, stage 3 (principal); I96 Gangrene, not elsewhere classified; E11.622 Type 2 diabetes mellitus with other skin ulcer; G82.21 Paraplegia, complete
CPT/HCPCS: 11042; 80048; G0463; 36415

== ENCOUNTER → 2021-03-29 | Outpatient (CLI) | payer MEDICARE, MEDICAID ==
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
== END ==
LOC: RAD 15:30
PROVIDERS: ATTEND Surgery
DX: L89.153 Pressure ulcer of sacral region, stage 3 (principal)
CPT/HCPCS: 72195

== ENCOUNTER → 2021-04-04 | Outpatient (CLI) | payer MEDICARE, MEDICAID | LOC: WOUNDCARE 14:53 | PROVIDERS: ATTEND Surgery | DX: L02.31 Cutaneous abscess of buttock (principal); I96 Gangrene, not elsewhere classified; L89.153 Pressure ulcer of sacral region, stage 3; E11.622 Type 2 diabetes mellitus with other skin ulcer; G82.21 Paraplegia, complete ==

== ENCOUNTER → 2021-04-10 | Outpatient (CLI) | payer MEDICARE, MEDICAID | LOC: WOUNDCARE 12:47 | PROVIDERS: ATTEND Surgery | DX: L02.31 Cutaneous abscess of buttock (principal); I96 Gangrene, not elsewhere classified; L89.153 Pressure ulcer of sacral region, stage 3; E11.622 Type 2 diabetes mellitus with other skin ulcer; G82.21 Paraplegia, complete | CPT/HCPCS: 11042; 85652; 86141; G0463; 36415 ==

== ENCOUNTER → 2021-04-17 | Outpatient (CLI) | payer MEDICARE, MEDICAID | LOC: WOUNDCARE 12:49 | PROVIDERS: ATTEND Surgery | DX: L02.31 Cutaneous abscess of buttock (principal); I96 Gangrene, not elsewhere classified; L89.153 Pressure ulcer of sacral region, stage 3; E11.622 Type 2 diabetes mellitus with other skin ulcer; G82.21 Paraplegia, complete | CPT/HCPCS: A6197; G0463; 99212 ==

== ENCOUNTER → 2021-04-24 | Outpatient (CLI) | payer MEDICARE, MEDICAID | LOC: WOUNDCARE 12:49 | PROVIDERS: ATTEND Surgery | DX: L89.153 Pressure ulcer of sacral region, stage 3 (principal); E11.622 Type 2 diabetes mellitus with other skin ulcer; G82.21 Paraplegia, complete; E11.52 Type 2 diabetes mellitus with diabetic peripheral angiopathy with gangrene | CPT/HCPCS: 11042; A6197; G0463 ==

== ENCOUNTER → 2021-05-01 | Outpatient (CLI) | payer MEDICARE, MEDICAID | LOC: WOUNDCARE 12:48 | PROVIDERS: ATTEND Surgery | DX: L89.153 Pressure ulcer of sacral region, stage 3 (principal); E11.52 Type 2 diabetes mellitus with diabetic peripheral angiopathy with gangrene; E11.622 Type 2 diabetes mellitus with other skin ulcer; G82.21 Paraplegia, complete | CPT/HCPCS: 99212 ==

== ENCOUNTER → 2021-05-08 | Outpatient (CLI) | payer MEDICARE, MEDICAID | LOC: WOUNDCARE 12:58 | PROVIDERS: ATTEND Surgery | DX: L89.153 Pressure ulcer of sacral region, stage 3 (principal); E11.52 Type 2 diabetes mellitus with diabetic peripheral angiopathy with gangrene; E11.622 Type 2 diabetes mellitus with other skin ulcer; G82.21 Paraplegia, complete | CPT/HCPCS: 99212 ==

== ENCOUNTER 2021-10-24 13:32 | Emergency (ER) | payer MEDICARE, MEDICAID ==
[~2021-10-24] VITALS: Ht 160 cm; Wt 77.0 kg
[~2021-10-24 13:32] MED LIST changes: -LISI-729 PO; +LISI5TAB20 PO
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
--- NOTE | 2021-10-24 14:37 | Diagnostic Imaging Report ---
INDICATION: Fall with left clavicle pain. TECHNIQUE: AP and angled views of the left clavicle were obtained. COMPARISON: No prior study for comparison. FINDINGS: There is an old healed fracture involving the mid clavicle shaft on the left side. There is no acute appearing abnormality. The AC joint is in good alignment. IMPRESSION: Old healed fracture deformity of the midshaft of the left clavicle. No acute abnormality. Dictated by: Dictated on workstation # [id number]
--- NOTE | 2021-10-24 14:42 | Diagnostic Imaging Report ---
INDICATION: Fall with left hip pain. TECHNIQUE: AP and oblique views of the left hip were obtained. 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 There is chronic irregularity of the acetabulum with some adjacent soft tissue calcifications. No definite acute abnormality is seen. IMPRESSION: Chronic deformity of the proximal femur as above with no definite acute abnormality. Dictated by: Dictated on workstation # [id number]
--- NOTE | 2021-10-24 15:34 | Diagnostic Imaging Report ---
PROCEDURE: CT neck soft tissue without contrast. TECHNIQUE: Multiple contiguous axial images were obtained through the neck without the use of intravenous contrast. Auto Exposure Controls were utilized during the CT exam to meet ALARA standards for radiation dose reduction. INDICATION: Fall with left sternoclavicular region swelling. FINDINGS: There is old left clavicular shaft fracture with bridging callus present. There is no significant hematoma or fluid collection identified. There is cervical spondylosis with posterior fixation in the thoracic spine. There is no evidence of significant muscle hematoma or disruption. Mastoid air cells are unremarkable. There is no evidence of parotid, submandibular or thyroid gland lesion. IMPRESSION: No acute neck abnormality is identified. Dictated by: Dictated on workstation # [id number]
[2021-10-24 15:46] VITALS: BP 132/79
== END 2021-10-24 15:47 | disposition home or self-care (01) ==
LOC: EDUNIT# 13:32 → ER 13:34
DX: M25.512 Pain in left shoulder (principal); M25.552 Pain in left hip; Z91.040 Latex allergy status
CPT/HCPCS: 70490; 73000; 73502